=== PATIENT | female | born 1950 | race Caucasian/White ===

== ENCOUNTER 2023-12-29 19:07 | Inpatient (IN) | payer MEDICARE, SELFPAY ==
[2023-12-29 12:46] VITALS: BP 129/77
[2023-12-29 12:54] LABS: Glucose - Point of Care > 600 mg/dl (70-99)
--- NOTE | 2023-12-29 15:39 | ED.GENMED ---
History of Present Illness
General
Chief Complaint: Prescription Refill
Time Seen by Provider: 12/29/23 15:34
Travel History
Have you had any contact with someone who has COVID-19?: No
Do you have any symptoms of coronavirus? Fever > 100 degrees, chills, cough, shortness of breath, sore throat, loss of taste or smell, muscle aches, or headache?: No
History of Present Illness
History of Present Illness:
73-year-old female with history of type 2 diabetes and history of noncompliance presents to the emergency department due to high glucose. She has not been able to administer her insulin over the past several days as she is out of needles. She
denies any polyuria or polydipsia but does report fatigue and dizziness. Denies any chest pain or recent fevers.
Past History
Past History
ED Past Medical History: CAD, Cancer (Hodgkin's lymphoma 1988), CHF, HTN, Hypercholesterolemia and IDDM
ED Past Surgical History: Cardiac (Bypass surgery) and Orthopedic (Left great toe amputation)
Social History
Tobacco: Non-smoker
Alcohol: None
Drug: None
Living: with family
Employment: Not employed
Family History
Family History: Unable to obtain
Review of Systems
Review of Systems
Allergies reviewed?: Yes
All Other Systems: ROS reviewed and negative except as documented in HPI and ROS
Phy Exam
Physical Exam
Physical Exam:
GEN: Well appearing, NAD, WDWN
HEENT: Oral mucosa moist, no scleral icterus
Cardiac: Regular rate and rhythm, no murmurs
Lung: No respiratory distress, no tachypnea
MSK: No gross deformity or injuries
Skin: Good color, no pallor or jaundice, no rashes
Neuro: AO x3, moves all extremities freely
Psych: Calm, cooperative
Course
Orders/Labs/Results
Orders:
Orders
12/29/23 16:03
B-Hydroxybutyrate Urgent
Comment: ADD ON
Basic Metabolic Panel Urgent
CBC/With Diff [Complete Blood Count/With Diff] Urgent
12/29/23 16:59
Venous Blood Gas Urgent
%Oxygen/Room Air: 96
12/29/23 17:44
Insulin Aspart [NOVOLOG vial] 15 units SC NOW STA
Lactated Ringers [Lr] 2,000 ml IV BOLUS
12/29/23 18:28
Admit/Transfer Patient As Directed
Co-Sign Provider:
Level of Care: Inpatient admission
Assign to:: IMU- Intermediate Care
Physician / Group: hodan concepcion
Diagnosis: Hyperglycemia
Reason for Hospitalization: Hyperglycemia
Expected length of stay greater than two midnights?: Yes
ELOS- Estimated Length of Stay in days: 2
I certify the patient meets the requirements for IP care: Yes
12/29/23 18:46
Code Status As Directed
Resuscitation Status: Do not resuscitate
Reached after discussion with pt or family/Healthcare POA: Yes
DNR Bracelet Application ONCE
US Periph Venous LOWER Ext Ricky Urgent
Comment:
Reason For Exam: edema
12/29/23 19:06
Add On- LAB Urgent
Tests Added?: magnesium, BMP
Abnormal Lab Results
12/29/23 12/29/23 12/29/23
12:49 16:03 16:59
RDW 14.8 H %
(11.5-14.5)
Plt Count 92 L 10^3/uL
(130-400)
MPV 11.2 H fL
(7.4-10.4)
Absolute Lymphs (auto) 0.6 L 10^3/uL
(1.2-3.4)
Neutrophils % 82.1 H %
(42.2-75.2)
Lymphocytes % 8.9 L %
(20.5-51.1)
VBG pH 7.31 L
(7.32-7.43)
VBG pCO2 59 H mmHg
(35-48)
VBG HCO3 29.7 H mmol/L
(22-27)
Sodium 123 L mmol/L
(135-145)
Chloride 95 L mmol/L
(98-107)
BUN 22 H mg/dl
(7-17)
Creatinine 1.6 H mg/dL
(0.6-1.0)
Glucose 574 H* mg/dl
(70-99)
B-Hydroxybutyrate 0.44 H mmol/L
(0.02-0.27)
POC Glucose > 600 H* mg/dl
(70-99)
12/29/23 16:03
12/29/23 16:03
Vital Signs
Initial and Last Documented VS:
Initial Vital Signs
Temp Pulse Resp BP Pulse Ox
98 F 85 16 129/77 98
12/29/23 12:46 12/29/23 12:46 12/29/23 12:46 12/29/23 12:46 12/29/23 12:46
Last Documented Vital Signs
Temp Pulse Resp BP Pulse Ox
98.3 F 86 18 135/86 96
12/29/23 20:52 12/29/23 20:52 12/29/23 18:00 12/29/23 20:52 12/29/23 20:52
MDM/Problems Addressed
MDM/Problems Addressed:
Patient is known to be markedly hyperglycemic however labs not consistent with DKA, she is mildly acidotic however her bicarb is elevated and she has no anion gap. Patient was offered discharge to home after IV fluids and subcutaneous insulin
however she is concerned about going home as she does not know whether she can obtain her insulin needles rapidly, I feel this is reasonable given the patient's history of noncompliance she could certainly benefit from further glucose control and
peer educator follow-up, will admit to the hospitalist service
*Critical Care Note
Total Time (30-74mins, 75-104mins- exclusive of procedures): Not Applicable
ED Attending Note
-
Portions of this chart may have been created with voice recognition software.� Occasional wrong word or��sound alike� substitutions may have occurred due to the inherent limitations of voice recognition software.
Discharge Plan
Departure
Patient Disposition: Admit
Date of Disposition: 12/29/23
Time of Disposition: 17:55
Admit to: Med/Surg
Presentation/result/management discussed w/ accepting MD/DO: Hospitalist
Discharge Problem:
Hyperglycemia due to type 2 diabetes mellitus
Interventions
Interventions:
*Risk Screen - Suicide Last Done: 12/29/23 15:40
*General Assessment Last Done: 12/29/23 15:40
*Neglect/Abuse Screening Last Done: 12/29/23 15:40
*ED COVID-19 Vaccine History Last Done: 12/29/23 15:40
[2023-12-29 16:00] VITALS: BP 145/75
[2023-12-29 16:32] LABS: % Basophils 0.3 % (0-2); % Eosinophils 0.6 % (0-6); % Immature Granulocytes 0.4 % (0-0.5); % Lymphocytes 8.9 % (20.5-51.1); % Monocytes 7.7 % (1.7-9.3); % Neutrophils 82.1 % (42.2-75.2); Absolute Lymphocytes 0.6 10^3/uL (1.2-3.4); Absolute Monocytes 0.5 10^3/uL (0.1-0.6); Absolute Neutrophils 5.5 10^3/uL (1.4-6.5); Hemoglobin 12.6 g/dL (12.0-16.0); Mean Corp Hgb Conc. 34.1 g/dL (33.0-37.0); Mean Corpuscular Hgb 27.8 pg (27.0-31.0); Mean Corpuscular Volume 81.5 fL (81.0-99.0); Nucleated Red Blood Cells % 0 %; Red Blood Cell Count 4.54 10^6/uL (4.20-5.40); Red Cell Dist. Width 14.8 % (11.5-14.5); White Blood Cell Count 6.7 10^3/uL (4.8-10.8)
[2023-12-29 17:06] LABS: Blood Urea Nitrogen 22 mg/dl (7-17); Carbon Dioxide 25 mmol/L (22-30); Chloride 95 mmol/L (98-107); Glucose 574 mg/dl (70-99); Sodium 123 mmol/L (135-145); eGFR 34.27
[2023-12-29 17:07] LABS: Mean Platelet Volume 11.2 fL (7.4-10.4); Platelet Count 92 10^3/uL (130-400)
[2023-12-29 17:29] LABS: Venous Blood Gas B.E. 2.1 mmol/L (-4 to +4); Venous Blood Gas HCO3 29.7 mmol/L (22-27); Venous Blood Gas O2 Sat % 71.5 %; Venous Blood Gas pCO2 59 mmHg (35-48); Venous Blood Gas pH 7.31 (7.32-7.43); Venous Blood Gas pO2 42 mmHg (30-50)
[2023-12-29 18:00] VITALS: BP 118/73
[2023-12-29 18:06] LABS: B-Hydroxybutyrate 0.44 mmol/L (0.02-0.27)
[2023-12-29] MEDS: NOVOLOG vial 15 UNITS SC (18:06)
[2023-12-29] MEDS: LR 2000 IV (18:15)
--- NOTE | 2023-12-29 18:46 | HPS.HSE ---
Addendum entered and electronically signed by Liban Garcia MD 12/30/23 07:43:
73-year-old female with a past medical history of type 2 diabetes, paroxysmal atrial fibrillation on Eliquis, hypertension, anxiety, Charcot ankle, and chronic ambulatory dysfunction presented to the ER for medication refills, found to have
hyperglycemia with a blood sugar of 574. She no longer has a PCP, and ran out of her medications several weeks ago. She is not in DKA. She denies any overt symptoms. She does have right lower extremity wounds with associated erythema and
tenderness.
She has received IV fluids and 15 units of NovoLog in the ER.
Will continue her home insulin regimen, consult diabetes nurse practitioner.
Treat right lower extremity cellulitis with IV Ancef.
Although she is supposed to be on Eliquis, she has not taken her medications for several weeks since she ran out.
Check bilateral lower extremity Dopplers to rule out DVT, consult wound care.
Continue Eliquis, give IV Lasix for her bilateral lower extremity edema. She is supposed to be on oral Lasix at home.
I have personally seen and examined the patient on 12/29/23, and agree with the plan of care as documented by TAMAR Maldonado
Advance care planning discussed, patient is a full code.
All other issues as outlined by the advanced care practitioner.
Total time spent to see the patient on the floor, examine the patient, review data and lab results, discuss treatment plan with patient, nursing staff around 75 minutes.
Original Note:
Family Physician
-
Family Physician: * NONE
Chief Complaint
-
Medication refills
History of Present Illness
73-year-old female from home where she lives alone and states that she ran out of her insulin along with Accu-Chek strips greater than 1 week ago along with her other home medications. She reports she has not seen a primary care doctor since the
summer and was told by her old primary care doctor September he is no longer assigned to her. She reports chronic swelling of bilateral legs she is unsure when her right lower extremity became red with ulcerations and was surprised during my
examination. She denies any increased thirst, urination, headache, dizziness, abdominal pain, nausea, vomiting, diarrhea, dizziness, urinary symptoms. She has a colostomy bag from prior diverticulitis with colon resection. She is noncompliant
with her medications. Other past medical history includes hypertension, paroxysmal A-fib, anxiety, HLD, DM2, chronic peripheral edema, Charcot ankle, chronic ambulatory dysfunction uses wheelchair.
Medical History
Past Medical History
Past Medical History: Reports Other (hypertension, paroxysmal A-fib, anxiety, HLD, DM2, chronic peripheral edema, Charcot ankle, chronic ambulatory dysfunction uses wheelchair.)
Past Surgical History: Reports Cholecystectomy (August 2023)
Social History
Tobacco: Non-smoker
Alcohol: None
Drug: None
Personal: Single
Living: Alone
Employment: Retired
Family History
Family History: Other (Patient is unsure)
Allergies / Home Medications
Allergies reflects when Allergies were last updated in [facility].
Home Medications with original date entered in [facility]
Allergy/Medication List:
Allergies
Allergy/AdvReac Type Severity Reaction Status Date / Time
erythromycin base Allergy Unknown Verified 12/29/23 12:45
Iodinated Contrast Media Allergy Unknown Verified 12/29/23 12:45
[Iodinated Contrast Media -
IV Dye]
prednisone Allergy Unknown Verified 12/29/23 12:45
sulfamethoxazole Allergy Unknown Verified 12/29/23 12:45
[From Bactrim]
trimethoprim [From Bactrim] Allergy Unknown Verified 12/29/23 12:45
vancomycin Allergy Itching Verified 12/29/23 12:45
AND RED
SCALP
Home Medications
metoprolol succinate 50 mg tablet,extended release 24 hr 50 mg PO BID Heart disease/condition 12/03/20
atorvastatin 40 mg tablet (Lipitor) 40 mg PO HS High cholesterol 02/18/23
buspirone 5 mg tablet 5 mg PO BID Mental Health/Anxiety 02/18/23
mirtazapine 7.5 mg tablet 7.5 mg PO HS Mental Health/Anxiety 02/18/23
potassium chloride 20 mEq/15 mL oral liquid 20 meq PO BID Electrolyte Repletion 02/18/23
apixaban 5 mg tablet (Eliquis) 5 mg PO BID Paroxysmal atrial fibrillation 05/11/23
furosemide 80 mg tablet 80 mg PO DAILY #30 tabs 05/25/23
insulin aspart U-100 100 unit/mL (3 mL) subcutaneous pen (Novolog FlexPen U-100 Insulin aspart) 8 unit (0.08 mL) SC AC #15 mL 07/28/23
insulin glargine 100 unit/mL (3 mL) subcutaneous pen (Basaglar KwikPen U-100 Insulin) 30 unit SC QPM 09/24/23
furosemide 40 mg tablet (Lasix) 40 mg PO QPM 12/29/23
Review of Systems
-
History Source: Patient
A 12 point ROS was completed and negative except as noted: Yes
Constitutional: Reports Other (Poor insight into medical conditions); Denies Fever or Chills
EENT: Denies Sore Throat or Runny Nose
Respiratory: Denies Cough or Trouble Breathing
Cardiac: Denies Chest Pain, Diaphoresis, Palpitations or Syncope
Abdomen/GI: Denies Abdominal Pain, Nausea, Vomiting, Diarrhea, Constipated, Bloody Stools or Black Stools
: Denies Dysuria, Frequency, Flank Pain, Incontinence, Difficulty Voiding or Urgency
Musculoskeletal: Reports Edema (Chronic bilateral lower leg edema left greater than right); Denies Joint Pain
Skin: Reports Other (Cellulitis with ulcerations to right lower extremity); Denies Itching
Neurological: Denies Dizzy, Headache or Weakness
Endocrine: Reports No Symptoms
Hematologic/Lymphatic: Reports No Symptoms
Psych: Reports Calm
Physical Exam
Vital Signs
Vital Signs
Temp Pulse Resp BP Pulse Ox
98 F 85 16 129/77 98
12/29/23 12:46 12/29/23 12:46 12/29/23 12:46 12/29/23 12:46 12/29/23 12:46
Physical Exam
General: Comfortable, Conversant and Other (Poor insight into medical conditions); No Pain or Fever
HEENT: NormoCephalic, Anicteric, Moist mucous membranes, PERRLA, [place] Conjunctivae, No Ptosis and Other
Respiratory: Clear; No Wheezes, Rales or Rhonchi
Cardiac: S1/S2, Regular Rhythm and Peripheral Edema (Chronic bilateral left greater than right); No Murmur, Rub or Gallop
Breast: Deferred by me
GI: Soft, Non Tender, Normal Bowel Sounds, No Hepatosplenomegaly and Ostomy
Rectal: Deferred by Provider
Genito-urinary: Deferred by me
Musculoskeletal: No Clubbing, No Cyanosis, Edema, Left Lower Extremity (+3 nonpitting) and Edema, Right Lower Extremity (+2 nonpitting with Cellulitis with ulcerations to right lower extremity); No Edema, Left Upper Extremity or Edema, Right Upper
Extremity
Skin: Warm, Dry and Ulcers (Cellulitis with ulcerations to right lower extremity); No Jaundice
Neuro: AO x 3, Nonfocal/grossly intact, Cranial Nerves Intact and No Sensory Deficits; No Slurred Speech, Facial Droop or Tremors
Psych: Calm
Laboratory Results
-
12/29/23 16:03
Laboratory Results
Total Bilirubin Cancelled 12/29/23 16:03
AST Cancelled 12/29/23 16:03
ALT Cancelled 12/29/23 16:03
Alkaline Phosphatase Cancelled 12/29/23 16:03
Impression/Plan
-
Impression/plan:
Admit to IMU
#DM2 with acute hyperglycemia noncompliant medication
Blood sugar 574
-IV fluids
-Resume Lantus
-Accu-Cheks with SSI, check HgbA1c
#Pseudohyponatremia in setting of acute hyperglycemia
NA 123
IV NSS will follow BMP
#Medication noncompliance
#Self-care neglect
-PT/OT/case management consult
-Case management to help patient establish primary care provider
#Cellulitis right lower extremity with open wound
-Consult wound care
-IV Ancef
-Resume IV Lasix
-Venous Doppler bilateral lower legs
#Paroxysmal A-fib
-Resume Eliquis 5 mg twice daily, metoprolol succinate 50 mg twice daily
#HLD
Resume Lipitor
#Anxiety
-Resume mirtazapine and BuSpar
#Chronic ambulatory dysfunction secondary to Charcot ankle
Patient uses wheelchair to get around home
DVT prophylaxis
Resume Eliquis patient is pending Dopplers bilateral leg
DNR per patient with attending present at bedside
[2023-12-29 19:00] VITALS: BP 123/47
[2023-12-29 19:18] LABS: Glucose - Point of Care 345 mg/dl (70-99)
[2023-12-29 20:24] LABS: Glucose - Point of Care 363 mg/dl (70-99)
[2023-12-29 20:52] VITALS: BP 135/86
[2023-12-29 21:14] LABS: Blood Urea Nitrogen 22 mg/dl (7-17); Calcium 8.7 mg/dl (8.4-10.2); Carbon Dioxide 25 mmol/L (22-30); Chloride 99 mmol/L (98-107); Glucose 279 mg/dl (70-99); Magnesium 2.2 mg/dl (1.6-2.3); Potassium 4.3 mmol/L (3.5-5.1); Sodium 128 mmol/L (135-145); eGFR 31.86
[2023-12-29 23:09] VITALS: BP 130/55
[2023-12-29 23:12] VITALS: BMI 26.2
--- NOTE | 2023-12-29 23:19 | PTCARENOTE ---
Received pt from ED via stretcher. AAOx3. Lungs CTA on RA. Regular apical. VSS at this time. Afebrile. Accucheck on arrival was 249. Labs drawn and sent. wounds noted on RLE, sacrum, and left gluteal fold. Wound consult requested. Pt
resting comfortably in bed with call castanon in reach.
[2023-12-29 23:30] LABS: Glucose - Point of Care 249 mg/dl (70-99)
[2023-12-29] MEDS: REMERON 7.5 MG PO (23:52)
[2023-12-29] MEDS: ANCEF 5 IV (23:52)
[2023-12-29] MEDS: LANTUS 0.299999999999999989 UNITS SC (23:52)
[2023-12-29] MEDS: TOPROL XL 50 MG PO (23:56)
[2023-12-29] MEDS: LIPITOR 40 MG PO (23:56)
[2023-12-29] MEDS: ELIQUIS 5 MG PO (23:56)
[2023-12-29] MEDS: NSS 1000 IV (23:57)
[2023-12-29 23:59] LABS: Blood Urea Nitrogen 23 mg/dl (7-17); Calcium 8.6 mg/dl (8.4-10.2); Carbon Dioxide 30 mmol/L (22-30); Chloride 97 mmol/L (98-107); Estimated Creatinine Clearance 28 ml/min; Glucose 214 mg/dl (70-99); Potassium 4.7 mmol/L (3.5-5.1); Sodium 128 mmol/L (135-145); eGFR 29.75
[2023-12-30] VITALS (13 sets, daily range): BP systolic 105–137; BP diastolic 38–83; BMI 26.2; BMI 26.3
[2023-12-30 05:06] LABS: Hematocrit 31.1 % (37.0-47.0); Hemoglobin 10.3 g/dL (12.0-16.0); Mean Corp Hgb Conc. 33.1 g/dL (33.0-37.0); Mean Corpuscular Hgb 27.6 pg (27.0-31.0); Mean Corpuscular Volume 83.4 fL (81.0-99.0); Mean Platelet Volume 10.3 fL (7.4-10.4); Platelet Count 126 10^3/uL (130-400); Red Blood Cell Count 3.73 10^6/uL (4.20-5.40); Red Cell Dist. Width 14.9 % (11.5-14.5); White Blood Cell Count 5.7 10^3/uL (4.8-10.8)
[2023-12-30 05:34] LABS: ALT (SGPT) < 10 U/L (0-35); AST (SGOT) 18 U/L (14-36); Albumin 2.1 g/dl (3.5-5.0); Alkaline Phosphatase 118 U/L (38-126); Blood Urea Nitrogen 25 mg/dl (7-17); Calcium 8.5 mg/dl (8.4-10.2); Carbon Dioxide 27 mmol/L (22-30); Chloride 99 mmol/L (98-107); Estimated Creatinine Clearance 33 ml/min; Glucose 219 mg/dl (70-99); Magnesium 2.1 mg/dl (1.6-2.3); Sodium 129 mmol/L (135-145); Total Bilirubin 0.7 mg/dl (0.2-1.3); Total Protein 4.7 g/dl (6.3-8.2); eGFR 37.03
--- NOTE | 2023-12-30 08:01 | W.PN.HOSP.TC ---
Today's Communication/Plan
-
Stable for telemetry
Assessment / Plan
Assessment / Plan
HPI: 73-year-old female with a past medical history of type 2 diabetes, paroxysmal atrial fibrillation on Eliquis, hypertension, anxiety, Charcot ankle, and chronic ambulatory dysfunction presented to the ER for medication refills, found to have
hyperglycemia with a blood sugar of 574.� She no longer has a PCP, and ran out of her medications several weeks ago.� She is not in DKA.� She denies any overt symptoms.� She does have right lower extremity wounds with associated erythema and
tenderness.
#Uncontrolled type 2 diabetes with hyperglycemia secondary to medication noncompliance
Patient presented to the ER for medication refills, she states she ran out of her insulin, and has not taken it for several days
Her blood sugars have improved since resuming insulin
Appreciate diabetes nurse practitioner input
Lantus increased to 35 units at night, continue NovoLog 8 units AC 3 times daily, sliding scale insulin
#Right lower extremity cellulitis
#Right lower extremity wounds
Wound care, continue Ancef day 2
#Medication noncompliance
Patient reports not having a PCP anymore, case management consulted
#Paroxysmal atrial fibrillation
Continue Eliquis and metoprolol succinate
#Pseudohyponatremia
Due to hyperglycemia, improving
#Stage III chronic kidney disease
Creatinine 1.5 today, about her baseline
#Bilateral lower extremity edema
Dopplers negative for DVT
# Hyperlipidemia
Continue Lipitor
#Anxiety
Continue mirtazapine and BuSpar
#Chronic ambulatory dysfunction secondary to Charcot ankle
Patient uses wheelchair to get around home
DVT prophylaxis -Eliquis
DNR
Physical Exam
General: Obese, no acute distress
HEENT: Normocephalic, Atraumatic, EOMI, MMM
Respiratory: Clear to Auscultation bilaterally
Cardiac: Normal S1/S2, Regular Rate and Rhythm
GI: Soft, Nontender, Nondistended, Normal Bowel Sounds
Extremities: No Clubbing, Cyanosis
Bilateral lower extremity edema, right greater than left
Scattered wounds on right andres with surrounding erythema and edema, erythema improved from admission
Anticipated Discharge: 24 - 48 hours
Subjective/Interval History
-
Date of Service: December 30, 2023
Patient reports feeling better.
Objective Data
-
Labs:
Laboratory Results
12/29/23 12/29/23 12/29/23
20:22 20:44 23:29
WBC
Hgb
Hct
Plt Count
Sodium Cancelled 128 L 128 L
Potassium Cancelled 4.3 4.7
Chloride Cancelled 99 97 L
Carbon Dioxide Cancelled 25 30
BUN Cancelled 22 H 23 H
Creatinine Cancelled 1.7 H 1.8 H
Glucose Cancelled 279 H 214 H
Calcium Cancelled 8.7 8.6
Total Bilirubin
AST
ALT
Alkaline Phosphatase
12/30/23
04:57
WBC 5.7
Hgb 10.3 L
Hct 31.1 L
Plt Count 126 L D
Sodium 129 L
Potassium 4.0
Chloride 99
Carbon Dioxide 27
BUN 25 H
Creatinine 1.5 H
Glucose 219 H
Calcium 8.5
Total Bilirubin 0.7
AST 18
ALT < 10
Alkaline Phosphatase 118
Vital Signs:
Vital Signs
Temp Pulse Resp BP Pulse Ox
98.3 F 63 16 120/51 93
12/30/23 04:19 12/30/23 06:00 12/30/23 06:00 12/30/23 06:00 12/30/23 06:00
I&O
12/29/23 12/30/23 12/31/23
06:59 06:59 06:59
Intake Total 400 / 400
Balance 400 / 400
[2023-12-30] MEDS: ANCEF 5 IV ×3 (08:48→23:48)
[2023-12-30] MEDS: TOPROL XL 50 MG PO ×2 (08:50→21:01)
[2023-12-30] MEDS: ELIQUIS 5 MG PO ×2 (08:50→21:01)
[2023-12-30] MEDS: LASIX 80 MG IV (08:51)
[2023-12-30 08:57] LABS: Glucose - Point of Care 214 mg/dl (70-99)
[2023-12-30] MEDS: NOVOLOG FLEXPEN 8 UNITS SC ×3 (09:25→18:09)
[2023-12-30] MEDS: NOVOLOG FLEXPEN-HIGH RESISTANCE 4 UNITS SC ×2 (09:25→18:09)
[2023-12-30 09:33] LABS: Glycohemoglobin (HgbA1c) 15.4 % (4.0-5.6)
--- NOTE | 2023-12-30 10:36 | WOUNDNOTE ---
R HEEL AND POSTERIOR LEG
--- NOTE | 2023-12-30 10:39 | WOUNDNOTE ---
SHAMAR RN note: Patient admitted with Hyperglycemia. Patient lives alone at home.
See H&P for complete history.
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
Wound Location and type/assessment: Patient known to service,last seen on 07/20/23 for healing L ischial stage 4 pressure injury. Since last seen, wound flatter, chicken and fish cleaner and less deep. No odor, induration or signs of infection, macerated edges.
Sacrum with small stage 3 PI, silicone foam in use. R lower leg with venous ulcers, pink at base. Ultrasound of legs was negative for DVT. Heels are intact, palpable pedal pulses, leg edema, L>R. Patient states she manages own wounds, uses dry gauze
dressings. Unable to use compression stockings at home, states she can't apply on own. Purwick in use, Labia with slight pink weeping area, not new. At home patient sleeps in recliner chair and sits in wheelchair during the day. Patient has been
advised to prevent prolonged sitting due to wounds and patient non compliant with advice. Colostomy stoma pink, no leakage. Using Convatec one piece drainable pouch with clip, is independent with care. Did not bring in supplies, called spd for
Coloplast one piece, supplies at bedside. Nurse Lor who assisted with care made aware to save clip when next appliance changed.
Appetite: on TLC diet.
Pressure redistribution devices in place: On Centrella max air,recommend keep on air mattress. She can turn self in bed. Pillows placed under calves and protective foams applied to heels.
Plan: Dressing changed to L ischium, with skin prep to periwound, 1' Iodoform packing,(2.5cm depth at 7 o clock) gauze and silicone foam. R leg with Xeroform, gauze and silicone foam. Will order mineral oil for dry skin on legs and feet. Called [facility]
for Tubigrip size F knee high both legs, to be applied by nurse after mineral oil applied. Sacral silicone foam in use on sacrum, re used foam, scant drainage. Colostomy can be changed as needed, supplies at bedside.
Will confirm orders with hospitalist and updated nurse Lor. Care plan to be update and will follow as needed.
Note to case management requested for discharge: VN if goes home with assist with wound care.
Recommend follow up at wound care center upon discharge.
--- NOTE | 2023-12-30 11:06 | PN.DE.MGMTRT ---
Insulin Management
- -
12/30/2023 Patient admitted 12/29 due to hyperglycemia because she had no needles to take her insulin. PMH CAD, Hodgkins lymphoma, CHF, HTN, HCL, diabetes. Glucose on admission >600.
A1C on admission 15.4%, cr 1.5, egfr 37.03.
Her home regimen of 30 units lantus @ hs was given last hs, fasting glucose this AM 219. Will increase hs lantus to 35 units. 8 units novolog AC has been started this AM with corrective insulin. Will follow for need to adjust.
Diabetes History
- -
Type of Diabetes: 2 requiring insulin
Pre-Admission Diabetes Regimen
12/29/23 12/29/23 12/29/23
16:03 19:18 20:22
Creatinine 1.6 H Cancelled Cancelled
12/29/23 12/29/23 12/30/23
20:44 23:29 04:57
Creatinine 1.7 H 1.8 H 1.5 H
Lab Results
Hemoglobin A1c 15.4 % (4.0-5.6) H 12/30/23 04:57
Insulin Pump Settings
IP Diabetes Regimen
12/29/23 12/29/23 12/29/23
12:49 16:03 19:14
Glucose 574 H*
POC Glucose > 600 H* 345 H
12/29/23 12/29/23 12/29/23
19:18 20:20 20:22
Glucose Cancelled Cancelled
POC Glucose 363 H
12/29/23 12/29/23 12/29/23
20:44 23:17 23:29
Glucose 279 H 214 H
POC Glucose 249 H
12/30/23 12/30/23
04:57 08:46
Glucose 219 H
POC Glucose 214 H
Meal type: Breakfast
Amount consumed: 100%
Patient Education
[2023-12-30 11:59] LABS: Glucose - Point of Care 104 mg/dl (70-99)
[2023-12-30] MEDS: NOVOLOG FLEXPEN-HIGH RESISTANCE SC (12:16)
[2023-12-30] MEDS: HYDROPHOR 1 APPLIC TOPICAL (14:10)
--- NOTE | 2023-12-30 16:59 | CM ---
Patient with Hx including chronic ambulatory dysfunction, colostomy with Dx Uncontrolled type 2 DM with hyperglycemia secondary to medication noncompliance, RLE cellulitis. Room air. Receiving IV cefazolin. Seen by wound care nurse: daily wound
care R leg, L ischium. Sacral wound care Q3days. PT Eval; refused.
Met with patient who resides alone in the basement level of her split level home, with no stairs needed for access.
Patient says her house is under construction and has mónica missing on the main levels.
She has a microwave and toilet on the basement unit.
The patient has been functioning indepenently for ADLs.
She is non-ambulatory and w/c bound. She is able to transfer herself to a w/c and propel it to the bathroom.
Patient states she has not ambulated in 4 years.
She states she does her own colostomy care and needs more supplies.
She orders food from [facility] for delivery.
DME - hospital bed that patient is not using, RW, w/c
[facility]
SNF - per prior CM notes 07/21/23: [facility], and [facility]
Patient states she will not go to SNF for rehab if needed. She states she cannot have VN at home because she has an open Workers Comp case from March 2023 and will not allow VN.
Patient states: 'I'm depressed. My son can't be bothered to call the barman for me to get my workers comp case closed so I can have a visiting nurse through Medicare. F---(curse word) it. My son still hasn't finished my kitchen, I gave him money
to do that and the mónica is torn up'.
Patient provided permission for to contact her son Jesus.
Message sent to Dr Garcia and nurse Horowitz: patient seems very depressed and disinterested in helping herself or participating in setting up services for herself at home. Will reach out to son who patient states is not helping her enough. [facility] is checking
if she is eligible for their services thru Medicare, as she thinks she has an open workers comp file that is preventing them from seeing her.
Offered to make referral to [facility] so they could determine if she has benefits available and she agreed.
Referral to [facility].
Message from Joelle Cannon, Garment [employer] requesting CM provide patient info on [employer]als [employer] Whe[employer].
Provided written info for patient: The phone # for [facility] [employer] [facility] of [facility] is [phone].
Patient may benefit from a referral to [facility]. Consider after speaking with son.
Plan follow up with [facility] re; acceptance.
Plan contact patient's son Jesus re; home situation.
[2023-12-30 17:25] LABS: Glucose - Point of Care 232 mg/dl (70-99)
[2023-12-30] MEDS: REMERON 7.5 MG PO (21:01)
[2023-12-30] MEDS: LIPITOR 40 MG PO (21:01)
[2023-12-30] MEDS: LANTUS 0.349999999999999978 UNITS SC (21:42)
[2023-12-30 21:53] LABS: Glucose - Point of Care 267 mg/dl (70-99)
[2023-12-30] MEDS: TYLENOL 650 MG PO (23:48)
[2023-12-31] VITALS (9 sets, daily range): BP systolic 106–148; BP diastolic 41–92; PULSE 61; O2SAT 94; BMI 26.0
--- NOTE | 2023-12-31 00:47 | PTCARENOTE ---
Received pt at start of shift. aaox3, pleasant. v paced on monitor. RA but began to desat to 88% when asleep, 2L placed HS. Colostomy bag intact. Pt refused to elevate her legs on pillows. RLE wound covered, CDI. Edematous legs. C/o of UGARTE, Tylenol
given. Lantus given. Q2T.
Had a brief conversation with pt about her care at home and if she has help nearby. Stated her son lives nearby and if she needed his help he would be available. Asked pt if she needs help at home and she stated 'i would have never admitted it
before, but yes i do need help.'
Call castanon in reach, will continue to monitor.
[2023-12-31 04:36] LABS: Hemoglobin 11.5 g/dL (12.0-16.0); Mean Corp Hgb Conc. 32.9 g/dL (33.0-37.0); Mean Corpuscular Hgb 27.7 pg (27.0-31.0); Mean Corpuscular Volume 84.3 fL (81.0-99.0); Mean Platelet Volume 9.9 fL (7.4-10.4); Platelet Count 138 10^3/uL (130-400); Red Blood Cell Count 4.15 10^6/uL (4.20-5.40); White Blood Cell Count 4.7 10^3/uL (4.8-10.8)
[2023-12-31 04:47] LABS: Blood Urea Nitrogen 39 mg/dl (7-17); Calcium 8.7 mg/dl (8.4-10.2); Carbon Dioxide 27 mmol/L (22-30); Chloride 98 mmol/L (98-107); Estimated Creatinine Clearance 28 ml/min; Glucose 397 mg/dl (70-99); Magnesium 2.2 mg/dl (1.6-2.3); Phosphorus 3.6 mg/dl (2.5-4.5); Potassium 4.4 mmol/L (3.5-5.1); Sodium 131 mmol/L (135-145); eGFR 29.75
[2023-12-31 08:18] LABS: Glucose - Point of Care 303 mg/dl (70-99)
--- NOTE | 2023-12-31 09:16 | PN.DE.MGMTRT ---
Insulin Management
- -
12/30/2023 Patient admitted 12/29 due to hyperglycemia because she had no needles to take her insulin. PMH CAD, Hodgkins lymphoma, CHF, HTN, HCL, diabetes. Glucose on admission >600.
A1C on admission 15.4%, cr 1.5, egfr 37.03.
Her home regimen of 30 units lantus @ hs was given last hs, fasting glucose this AM 219. Will increase hs lantus to 35 units. 8 units novolog AC has been started this AM with corrective insulin. Will follow for need to adjust.
12/31/2023 Diabetes Management Follow up
Insulin doses increased yesterday glucose remains > 200. Received 35 units of lantus @ hs, fasting glucose this AM 397. Will increase HS Lantus to 40 units. Pre meal glucose remained > 200 requiring 4 units corrective insulin. Will increase AC
novolog to 12 units with corrective insulin. Will change corrective insulin from high to moderate. Will follow.
Diabetes History
- -
Type of Diabetes: 2 requiring insulin
Pre-Admission Diabetes Regimen
12/31/23
04:05
Creatinine 1.8 H
Lab Results
Hemoglobin A1c 15.4 % (4.0-5.6) H 12/30/23 04:57
Insulin Pump Settings
IP Diabetes Regimen
12/30/23 12/30/23 12/30/23
11:47 17:09 21:41
Glucose
POC Glucose 104 H 232 H 267 H
12/31/23 12/31/23
04:05 08:07
Glucose 397 H
POC Glucose 303 H
Meal type: Breakfast
Amount consumed: 100%
Patient Education
[2023-12-31] MEDS: ELIQUIS 5 MG PO ×2 (09:25→20:18)
[2023-12-31] MEDS: HYDROPHOR 1 APPLIC TOPICAL (09:26)
[2023-12-31] MEDS: TOPROL XL 50 MG PO ×2 (09:27→20:18)
[2023-12-31] MEDS: NOVOLOG FLEXPEN 8 UNITS SC (09:39)
[2023-12-31] MEDS: NOVOLOG FLEXPEN-HIGH RESISTANCE 10 UNITS SC (09:40)
[2023-12-31] MEDS: ANCEF 5 IV ×2 (09:50→16:05)
--- NOTE | 2023-12-31 09:59 | CM ---
Addendum entered by Nova Salazar 12/31/23 16:42:
i did call [facility].their physicians only see patients in the home if patient is absolutely bedbound.i was told patient does not qualify for a home visit from a doctor since she does have other means to travel to a doctor's office.i
also called house call group and left a [facility] to return my call.not able to reach [facility] or [facility] since phone numbers were not current.
Original Note:
met with patient at bedside.she states she does not have a pcp and said she has been followed in past by [facility].she mentions her son smith works and is not able to drive her to the doctor's office to see a primary care doctor.she had been seeing a spread cutter
at [facility] but the spread cutter wanted to see her before he ordered additonal home care visits.patient states she has been trying to straighten out her medicare coverage for months now(since aug 2023) but thinks that situation has been
resolveed.i have spoken with patient about seeing a resident doctor through the clinic at [facility].she told cm she doesnt think she can make any appts because she has no one to drive her there. i left patient a brochure about the above
clinic.
i spoke with son smith who mentions he has told his mother that if she makes an appt he will drive her to the appt.he visits her almost daily but states she has her own agenda and does not seem to wants to see a pcp.he mentions she does have
medicare but had a settlement with a prison and the carriage feeder forgot to send back payment to medicare which caused a problem with medicare initially. now it appears to be resolved.son smith states his mom is very much in need of a visiting
nurse through [facility] and will discuss with his mom going through the clinic and seeing a resident physician.he also told me his mom would like a doctor who makes home visits.i explained that i did not think there are any programs where doctors make
house visits but i will inquire. son mentions his mother has been very difficult to deal with and has been non compliant for as long as he can remember.
--- NOTE | 2023-12-31 10:32 | PTCARENOTE ---
Assumed care of pt from night RN, pt awake and alert, confusion noted and pt seems a bit manic, sentences hard to follow at times, pt does have hx of Bipolar Disorder. Son at bedside, per son, pt is a bit more confused than normal. Repositioned in
bed frequently and incontinence care completed as needed. Remains on 1440 FR, compliant. Will continue to monitor through shift.
--- NOTE | 2023-12-31 11:51 | PN.CDI ---
CDI
- -
CDI:
Physician Documentation Request
Admit Date: 12/29/23 19:07
Dear Doctor Do,
Please review the following and provide your response in the progress notes.
Clinical Indicators:
Pt admitted with DM with hyperglycemia/Cellulitis
Documented per ED Hx of CHF
Per MAR on Lasix 40 MG QPM daily/ 80 mg PO daily
Documented per past visit 07/20/23 visit cardiology consult, 'Ischemic cardiomyopathy/history of heart failure with reduced ejection fraction EF 30-35% ( echo 11/27/20)...'
Please provide further specificity regarding the most likely type of CHF you are evaluating, treating or monitoring.
Type
Chronic Systolic
Chronic Diastolic
Chronic Combined Systolic/Diastolic
Other
Use of terms such as suspected, likely, concern for, or probable (associated with a specific diagnosis that is being evaluated, monitored, or treated as if it exists) are acceptable and can be coded in the inpatient setting, when documented at the
time of discharge.
Thank you,
Cynthia Soto RN
CDI Specialist
[place] Text
Please use your independent medical judgment in providing your response.
--- NOTE | 2023-12-31 12:03 | PN.CDI ---
CDI
- -
CDI:
Physician Documentation Request
Admit Date: 12/29/23 19:07
Dear Doctor Do,
Please review the following and provide your response in the progress notes.
Clinical Indicators:
Pt admitted with DM with hyperglycemia/ RLE Cellulitis /noncompliance with medications
A1C 15.4 %
Please clarify the relationship between these conditions:
Yes, _RLE cellulitis __ is related to/associated with/due to Diabetes ___.
No, _RLE cellulitis __ is not related to/associated with/due to _Diabetes __ but it is due to ___. (Please specify)
Unable to determine
Use of terms such as suspected, likely, concern for, or probable (associated with a specific diagnosis that is being evaluated, monitored, or treated as if it exists) are acceptable and can be coded in the inpatient setting, when documented at the
time of discharge.
Thank you,
Cynthia Soto RN
CDI Specialist
[place] Text
Please use your independent medical judgment in providing your response.
--- NOTE | 2023-12-31 12:06 | PTCARENOTE ---
Assumed care of pt from night RN, pt awake and alert, makes needs known. Pt seen by Diabetic BUILDING CUSTODIAN, glucometer given to pt for use at home and education provided, despite pt saying 'I have like 10 of these at home.' Scheduled Novolog and Lantus
increased per BUILDING CUSTODIAN. Continues on IV ABT for RLE cellulitis. Colostomy in place collecting brown stool, pt self-cares for colostomy. Pt awaiting private room on med/surg floor r/t + MRSA in nares, Contact precautions maintained. Will continue to
monitor through shift.
--- NOTE | 2023-12-31 12:46 | W.PN.HOSP.TC ---
Today's Communication/Plan
-
See bold
Assessment / Plan
Assessment / Plan
HPI: 73-year-old female with a past medical history of type 2 diabetes, paroxysmal atrial fibrillation on Eliquis, hypertension, anxiety, Charcot ankle, and chronic ambulatory dysfunction presented to the ER for medication refills, found to have
hyperglycemia with a blood sugar of 574.� She no longer has a PCP, and ran out of her medications several weeks ago.� She is not in DKA.� She denies any overt symptoms.� She does have right lower extremity wounds with associated erythema and
tenderness.
#Uncontrolled type 2 diabetes with hyperglycemia secondary to medication noncompliance, hemoglobin A1c 15.4
Patient presented to the ER for medication refills, she states she ran out of her insulin, and has not taken it for several days
Her blood sugars have improved since resuming insulin
Appreciate diabetes nurse practitioner input
Lantus increased to 40 units at night, novolog increased to 12 units AC 3 times daily, sliding scale insulin
#Right lower extremity cellulitis
#Right lower extremity wounds
No, RLE cellulitis is not related to/associated with/due to Diabetes but it is due to RLE wounds
Wound care, continue Ancef day 4
#Medication noncompliance
Patient reports not having a PCP anymore, case management consulted
#Paroxysmal atrial fibrillation
Continue Eliquis and metoprolol succinate
#Pseudohyponatremia
Due to hyperglycemia, improving
#Stage III chronic kidney disease
Creatinine 1.5 today, about her baseline
#Chronic systolic heart failure
#Bilateral lower extremity edema
Dopplers negative for DVT
Status post IV Lasix
Likely can resume oral Lasix tomorrow
# Hyperlipidemia
Continue Lipitor
#Anxiety
Continue mirtazapine and BuSpar
#Chronic ambulatory dysfunction secondary to Charcot ankle
Patient uses wheelchair to get around home
DVT prophylaxis -Eliquis
DNR
Physical Exam
General: Obese, no acute distress
HEENT: Normocephalic, Atraumatic, EOMI, MMM
Respiratory: Clear to Auscultation bilaterally
Cardiac: Normal S1/S2, Regular Rate and Rhythm
GI: Soft, Nontender, Nondistended, Normal Bowel Sounds
Extremities: No Clubbing, Cyanosis
Bilateral lower extremity edema, right greater than left
Scattered wounds on right andres with surrounding erythema and edema, erythema improved from admission
Left first toe amputation
Anticipated Discharge: 24 - 48 hours
Subjective/Interval History
-
Date of Service: December 31, 2023
Patient reports feeling better.
Objective Data
-
Labs:
Laboratory Results
12/31/23
04:05
WBC 4.7 L
Hgb 11.5 L
Hct 35.0 L
Plt Count 138
Sodium 131 L
Potassium 4.4
Chloride 98
Carbon Dioxide 27
BUN 39 H
Creatinine 1.8 H
Glucose 397 H
Calcium 8.7
Vital Signs:
Vital Signs
Temp Pulse Resp BP Pulse Ox
97.8 F 64 13 137/59 97
12/31/23 11:00 12/31/23 09:27 12/31/23 06:00 12/31/23 09:27 12/31/23 07:45
I&O
12/30/23 12/31/23 01/01/24
06:59 06:59 06:59
Intake Total 400 / 400 570 / 570
Output Total 925 / 925
Balance 400 / 400 -355 / -355 -
[2023-12-31 14:05] LABS: Glucose - Point of Care 147 mg/dl (70-99)
[2023-12-31] MEDS: NOVOLOG FLEXPEN 12 UNITS SC ×2 (14:17→18:24)
[2023-12-31] MEDS: NOVOLOG FLEXPEN-MODERATE RESISTANCE SC ×2 (14:18→17:53)
--- NOTE | 2023-12-31 15:50 | VNURNOTE ---
Home Health Liaison met with patient at 1400 to discuss [facility] nurse/therapy, visits, schedule and homebound status.
Patient does not have a current PCP and will not return to [facility].
Patient stated that she had [facility] previously and due to insurance issues it was cancelled.
Prior home care notes indicate that services were not continued because patient would not make appointment with PCP.
Patient went to [facility] 07/28 - 09/12 and following that stay the PCP required a visit in order to continue to sign home care orders, 09/17/23 the pt was made a non admit to [facility] services.
Patient stated that she is unable to get out of house to any appointments and would be agreeable to have in home physician see her if needed.
Patient is agreeable to have [facility] set up once above physician is established.
Calls made to practices that make house calls [facility] [phone] and [facility] [phone] requesting information for new patient. Message left on both above numbers, will follow up 2/2.
[facility] brochure provided with contact information. Liaison will update CM and continue to assist with coordination of care.
[2023-12-31] MEDS: ROXICODONE 5 MG PO (16:05)
[2023-12-31 18:00] LABS: Glucose - Point of Care 130 mg/dl (70-99)
[2023-12-31] MEDS: REMERON 7.5 MG PO (20:18)
[2023-12-31] MEDS: LIPITOR 40 MG PO (20:18)
[2023-12-31 21:51] LABS: Glucose - Point of Care 133 mg/dl (70-99)
[2023-12-31] MEDS: LANTUS 0.400000000000000022 UNITS SC (21:52)
[2024-01-01] VITALS: BP 124/48
[2024-01-01] MEDS: ANCEF 5 IV ×3 (00:15→17:53)
[2024-01-01 04:00] VITALS: BP 108/66
--- NOTE | 2024-01-01 04:40 | PTCARENOTE ---
Received pt at start of shift. av & vpaced on monitor. RA when awake, 2lHS when asleep d/t desating. Denies pain. Wound dressings CDI. Lantus given, blood sugar 130HS. LLE edematous, pt refuses to elevate them. Q2T in bed. Wedge & air cushion foam
used for pt. NO other issues at this time, call castanon in reach.
[2024-01-01 05:17] LABS: Hematocrit 33.2 % (37.0-47.0); Hemoglobin 10.6 g/dL (12.0-16.0); Mean Corp Hgb Conc. 31.9 g/dL (33.0-37.0); Mean Corpuscular Volume 87.8 fL (81.0-99.0); Mean Platelet Volume 10.6 fL (7.4-10.4); Platelet Count 139 10^3/uL (130-400); Red Blood Cell Count 3.78 10^6/uL (4.20-5.40); Red Cell Dist. Width 15.1 % (11.5-14.5); White Blood Cell Count 4.9 10^3/uL (4.8-10.8)
[2024-01-01 05:46] LABS: Blood Urea Nitrogen 45 mg/dl (7-17); Calcium 8.7 mg/dl (8.4-10.2); Carbon Dioxide 27 mmol/L (22-30); Chloride 103 mmol/L (98-107); Estimated Creatinine Clearance 28 ml/min; Glucose 257 mg/dl (70-99); Potassium 4.2 mmol/L (3.5-5.1); Sodium 135 mmol/L (135-145); eGFR 29.75
[2024-01-01 06:00] VITALS: BMI 26.5
--- NOTE | 2024-01-01 07:34 | PN.DE.MGMTRT ---
Insulin Management
- -
12/30/2023 Patient admitted 12/29 due to hyperglycemia because she had no needles to take her insulin. PMH CAD, Hodgkins lymphoma, CHF, HTN, HCL, diabetes. Glucose on admission >600.
A1C on admission 15.4%, cr 1.5, egfr 37.03.
Her home regimen of 30 units Lantus @ hs was given last hs, fasting glucose this AM 219. Will increase hs Lantus to 35 units. 8 units NovoLog AC has been started this AM with corrective insulin. Will follow for need to adjust.
12/31/2023 Diabetes Management Follow up
Insulin doses increased yesterday glucose remains > 200. Received 35 units of Lantus @ hs, fasting glucose this AM 397. Will increase HS Lantus to 40 units. Pre meal glucose remained > 200 requiring 4 units corrective insulin. Will increase AC
NovoLog to 12 units with corrective insulin. Will change corrective insulin from high to moderate. Will follow.
01/01/2024: Diabetes Management F/U:
Insulin doses increased yesterday and premeal glucose improved to 130-147, however, FBG remains > 200, was 257 this AM.
Will further increase Lantus to 44 units. Cont AC NovoLog 12 units with moderate corrective insulin.
Will follow for need to further adjust insulin.
Diabetes History
- -
Type of Diabetes: 2 requiring insulin
Pre-Admission Diabetes Regimen
01/01/24
05:05
Creatinine 1.8 H
Lab Results
Hemoglobin A1c 15.4 % (4.0-5.6) H 12/30/23 04:57
Insulin Pump Settings
IP Diabetes Regimen
12/31/23 12/31/23 12/31/23
08:07 13:54 17:49
Glucose
POC Glucose 303 H 147 H 130 H
12/31/23 01/01/24
21:40 05:05
Glucose 257 H
POC Glucose 133 H
Meal type: Dinner
Amount consumed: 100%
Patient Education
[2024-01-01 08:00] VITALS: BP 144/60
--- NOTE | 2024-01-01 08:18 | W.PN.HOSP.TC ---
Today's Communication/Plan
-
see bold
Assessment / Plan
Assessment / Plan
HPI: 73-year-old female with a past medical history of type 2 diabetes, paroxysmal atrial fibrillation on Eliquis, hypertension, anxiety, Charcot ankle, and chronic ambulatory dysfunction presented to the ER for medication refills, found to have
hyperglycemia with a blood sugar of 574.� She no longer has a PCP, and ran out of her medications several weeks ago.� She is not in DKA.� She denies any overt symptoms.� She does have right lower extremity wounds with associated erythema and
tenderness.
#Uncontrolled type 2 diabetes with hyperglycemia secondary to medication noncompliance, hemoglobin A1c 15.4
Patient presented to the ER for medication refills, she states she ran out of her insulin, and has not taken it for several days
Her blood sugars have improved since resuming insulin
Appreciate diabetes nurse practitioner input
Lantus increased to 44 units at night, novolog increased to 12 units AC 3 times daily, sliding scale insulin
#Right lower extremity cellulitis
#Right lower extremity wounds
No, RLE cellulitis is not related to/associated with/due to Diabetes but it is due to RLE wounds
Wound care, continue Ancef day 5 - likely can change to keflex tomorrow
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
#Sacrum with small stage 3 pressure injury
Wound care
#Medication noncompliance
Patient reports not having a PCP anymore, case management consulted
Patient states there is no one to take her to see a primary care doctor, discussed with her son on 2/1�he is willing to take her
#Paroxysmal atrial fibrillation
Continue Eliquis and metoprolol succinate
#Pseudohyponatremia
Due to hyperglycemia, improving
#Stage III chronic kidney disease
Creatinine 1.8 today, about her baseline
#Chronic systolic heart failure
#Bilateral lower extremity edema
Dopplers negative for DVT
Status post IV Lasix
Resume oral Lasix tomorrow
# Hyperlipidemia
Continue Lipitor
#Anxiety
Continue mirtazapine and BuSpar
#Chronic ambulatory dysfunction secondary to Charcot ankle
Patient uses wheelchair to get around home
DVT prophylaxis -Eliquis
DNR
Physical Exam
General: Obese, no acute distress
HEENT: Normocephalic, Atraumatic, EOMI, MMM
Respiratory: Clear to Auscultation bilaterally
Cardiac: Normal S1/S2, Regular Rate and Rhythm
GI: Soft, Nontender, Nondistended, Normal Bowel Sounds
Extremities: No Clubbing, Cyanosis
Bilateral lower extremity edema, right greater than left
Scattered wounds on right andres with surrounding erythema and edema, erythema improved from admission
Left first toe amputation
Derm: Healing L ischial stage 4 pressure injury
Sacrum with small stage 3 pressure injury
Anticipated Discharge: Within 24 hours
Subjective/Interval History
-
Date of Service: January 01, 2024
Patient reports feeling tired.
Objective Data
-
Labs:
Laboratory Results
01/01/24
05:05
WBC 4.9
Hgb 10.6 L
Hct 33.2 L
Plt Count 139
Sodium 135
Potassium 4.2
Chloride 103
Carbon Dioxide 27
BUN 45 H
Creatinine 1.8 H
Glucose 257 H
Calcium 8.7
Vital Signs:
Vital Signs
Temp Pulse Resp BP Pulse Ox
97.8 F 60 14 108/66 100
01/01/24 03:10 01/01/24 06:00 01/01/24 06:00 01/01/24 04:00 01/01/24 06:00
I&O
12/31/23 01/01/24 01/02/24
06:59 06:59 06:59
Intake Total 570 / 570 780 / 780
Output Total 925 / 925 600 / 600
Balance -355 / -355 180 / 180
--- NOTE | 2024-01-01 08:44 | PTCARENOTE ---
Patient received from shift leader. Patient resting comfortably in bed. AAO, VSS. No events noted overnight. No complaints of pain at this time. 2L N/C HS, to come off when awake. Purewick in place, patient wheelchair/bed bound. Call castanon in
reach.
[2024-01-01] MEDS: TOPROL XL 50 MG PO ×2 (09:28→20:50)
[2024-01-01] MEDS: ELIQUIS 5 MG PO ×2 (09:28→20:49)
[2024-01-01] MEDS: HYDROPHOR 1 APPLIC TOPICAL (09:29)
--- NOTE | 2024-01-01 09:29 | PN.CDI ---
CDI
- -
CDI:
Physician Documentation Request
Admit Date: 12/29/23 19:07
Dear Doctor Do,
Please review the following and provide your response in the progress notes.
Clinical Indicators:
Pt admitted with DM with hyperglycemia/ RLE Cellulitis /noncompliance with medications
Documented per [facility] note 12/30,' Patient known to service,last seen on 07/20/23 for healing L ischial stage 4 pressure injury. Since last seen, wound flatter, dry cleaner helper and less deep. No odor, induration or signs of infection, macerated edges. Sacrum
with small stage 3 PI, silicone foam in use. R lower leg with venous ulcers, pink at base....Dressing changed to L ischium, with skin prep to periwound, 1' Iodoform packing,(2.5cm depth at 7 o clock) gauze and silicone foam. R leg with Xeroform,
gauze and silicone foam. ... Sacral silicone foam in use on sacrum...'
Physician documentation of the type and location of wounds is required for compliant documentation. Based on the above clinical findings and your assessment, please provide the following in your progress note:
1. Location of the ulcer/wound, including laterality. ( FOR EACH WOUND)
2. Type (etiology) of ulcer/wound:
- Pressure (decubitus) ulcer
- Non-pressure ulcer
- Other
Use of terms such as suspected, likely, concern for, or probable (associated with a specific diagnosis that is being evaluated, monitored, or treated as if it exists) are acceptable and can be coded in the inpatient setting, when documented at the
time of discharge.
Thank you,
Cynthia Soto RN
CDI Specialist
[place] Text
Please use your independent medical judgment in providing your response.
*Source: National Pressure Ulcer Advisory Panel (NPUAP)
--- NOTE | 2024-01-01 10:26 | VNURNOTE ---
Follow up calls made to [facility] and [facility] regarding in home physician visits.
Message left again on both numbers and awaiting return call to see if patient is eligible for in home MD visits in order to establish a PCP and then have [facility].
Call to [facility] and message left for intake.
No [facility] referral made until patient is established with a PCP.
Home Health Liaison asked patient for her permission to speak to son but was declined.
[2024-01-01] MEDS: NOVOLOG FLEXPEN 12 UNITS SC ×2 (11:00→13:36)
[2024-01-01] MEDS: NOVOLOG FLEXPEN-MODERATE RESISTANCE 3 UNITS SC (11:02)
[2024-01-01 11:10] LABS: Glucose - Point of Care 227 mg/dl (70-99)
[2024-01-01 12:00] VITALS: BP 127/76
[2024-01-01] MEDS: NOVOLOG FLEXPEN-MODERATE RESISTANCE 1 UNITS SC (13:36)
[2024-01-01 13:55] LABS: Glucose - Point of Care 170 mg/dl (70-99)
--- NOTE | 2024-01-01 16:21 | VNURNOTE ---
[facility] [phone] has returned call and message received that they are at full capacity and are unable to take any patients at this time.
--- NOTE | 2024-01-01 17:27 | CM ---
Patient with Hx including chronic ambulatory dysfunction, colostomy with Dx Uncontrolled type 2 DM with hyperglycemia secondary to medication noncompliance, RLE cellulitis. Room air. Receiving IV cefazolin. Seen by DM Educator - glucometer issued.
Seen by wound care nurse: daily wound care R leg, L ischium. Sacral wound care Q3days. PT & OT recommend HH.
Noting prior CM notes; CM spoke with son who was willing to take her to PCP appointments.
CM conferred with FIL[facility] Liaison today; major efforts made to setup PCP who could see patient at home have been unsuccessful. Without PCP patient cannot be seen by [facility]. Patient declines to take transport to PCP office.
Plan home.
[2024-01-01] MEDS: LASIX 40 MG PO (17:53)
[2024-01-01 17:54] VITALS: BP 143/52
[2024-01-01 18:13] LABS: Glucose - Point of Care 88 mg/dl (70-99)
[2024-01-01] MEDS: LANTUS 0.440000000000000002 UNITS SC (18:52)
[2024-01-01] MEDS: NOVOLOG FLEXPEN-MODERATE RESISTANCE SC (18:52)
[2024-01-01] MEDS: NOVOLOG FLEXPEN 10 UNITS SC (18:52)
[2024-01-01] MEDS: REMERON 7.5 MG PO (20:49)
[2024-01-01] MEDS: LIPITOR 40 MG PO (20:49)
[2024-01-01] MEDS: ROXICODONE 5 MG PO (20:58)
--- NOTE | 2024-01-01 22:00 | PTCARENOTE ---
Pt downgraded to tele. Report called to floor spoke with Miki DC. Pt transported via wheelchair with all personal belongings to room 433-1.
[2024-01-01 22:01] LABS: Glucose - Point of Care 185 mg/dl (70-99)
[2024-01-01 22:38] VITALS: BP 144/54
--- NOTE | 2024-01-01 22:47 | PTCARENOTE ---
Pt transferred from IMU to room 433-01. Pt transferred with x1 assist pivot from wheelchair to bed. Pt oriented to room, call castanon within reach. VS on transfer stable. Wound care dressings remain intact. Pt placed on telemetry, contact
precautions maintained. Will continue to monitor.
[2024-01-02] MEDS: ANCEF 5 IV ×2 (00:21→07:53)
[2024-01-02] MEDS: ROXICODONE 5 MG PO ×2 (01:02→21:41)
[2024-01-02 03:47] VITALS: BP 126/49
[2024-01-02 05:28] VITALS: BMI 26.9
[2024-01-02 07:24] LABS: Hematocrit 33.6 % (37.0-47.0); Hemoglobin 10.9 g/dL (12.0-16.0); Mean Corp Hgb Conc. 32.4 g/dL (33.0-37.0); Mean Corpuscular Hgb 28.2 pg (27.0-31.0); Mean Corpuscular Volume 86.8 fL (81.0-99.0); Mean Platelet Volume 10.2 fL (7.4-10.4); Platelet Count 146 10^3/uL (130-400); Red Blood Cell Count 3.87 10^6/uL (4.20-5.40); Red Cell Dist. Width 15.2 % (11.5-14.5); White Blood Cell Count 5.1 10^3/uL (4.8-10.8)
[2024-01-02 07:37] LABS: Glucose - Point of Care 227 mg/dl (70-99)
[2024-01-02 07:44] VITALS: BP 128/61
[2024-01-02 07:46] LABS: Blood Urea Nitrogen 51 mg/dl (7-17); Calcium 8.7 mg/dl (8.4-10.2); Carbon Dioxide 27 mmol/L (22-30); Chloride 102 mmol/L (98-107); Estimated Creatinine Clearance 28 ml/min; Glucose 226 mg/dl (70-99); Potassium 4.4 mmol/L (3.5-5.1); Sodium 136 mmol/L (135-145); eGFR 29.75
[2024-01-02] MEDS: HYDROPHOR 1 APPLIC TOPICAL (07:54)
[2024-01-02] MEDS: ELIQUIS 5 MG PO ×2 (07:54→21:31)
[2024-01-02] MEDS: TOPROL XL 50 MG PO ×2 (07:54→21:31)
[2024-01-02] MEDS: LASIX 80 MG PO (07:54)
[2024-01-02] MEDS: NOVOLOG FLEXPEN-MODERATE RESISTANCE 3 UNITS SC ×2 (08:57→12:46)
[2024-01-02] MEDS: NOVOLOG FLEXPEN 12 UNITS SC ×3 (08:57→18:12)
--- NOTE | 2024-01-02 09:07 | W.PN.HOSP.TC ---
Today's Communication/Plan
-
Medically stable for discharge
Discharge delayed as it is difficult arranging for home care for her
Assessment / Plan
Assessment / Plan
HPI: 73-year-old female with a past medical history of type 2 diabetes, paroxysmal atrial fibrillation on Eliquis, hypertension, anxiety, Charcot ankle, and chronic ambulatory dysfunction presented to the ER for medication refills, found to have
hyperglycemia with a blood sugar of 574.� She no longer has a PCP, and ran out of her medications several weeks ago.� She is not in DKA.� She denies any overt symptoms.� She does have right lower extremity wounds with associated erythema and
tenderness.
#Uncontrolled type 2 diabetes with hyperglycemia secondary to medication noncompliance, hemoglobin A1c 15.4
Patient presented to the ER for medication refills, she states she ran out of her insulin, and has not taken it for several days
Her blood sugars have improved since resuming insulin
Appreciate diabetes nurse practitioner input
Lantus increased to 44 units at night, novolog increased to 12 units AC 3 times daily, sliding scale insulin
Medically stable for discharge
Discharge delayed as it is difficult arranging for home care for her
#Right lower extremity cellulitis
#Right lower extremity wounds
No, RLE cellulitis is not related to/associated with/due to Diabetes but it is due to RLE wounds
Wound care, status post Ancef for 5 days, changed to Keflex for an additional 5 days to complete a 10-day course
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
#Sacrum with small stage 3 pressure injury
Wound care
#Medication noncompliance
Patient reports not having a PCP anymore, case management consulted
Patient states there is no one to take her to see a primary care doctor, discussed with her son on 2/1�he is willing to take her
#Paroxysmal atrial fibrillation
Continue Eliquis and metoprolol succinate
#Pseudohyponatremia
Due to hyperglycemia, improving
#Stage III chronic kidney disease
Creatinine 1.8 today, about her baseline
#Chronic systolic heart failure
#Bilateral lower extremity edema
Dopplers negative for DVT
Status post IV Lasix
Resumed oral Lasix
# Hyperlipidemia
Continue Lipitor
#Anxiety
Continue mirtazapine and BuSpar
#Chronic ambulatory dysfunction secondary to Charcot ankle
Patient uses wheelchair to get around home
DVT prophylaxis -Eliquis
DNR
Physical Exam
General: Obese, no acute distress
HEENT: Normocephalic, Atraumatic, EOMI, MMM
Respiratory: Clear to Auscultation bilaterally
Cardiac: Normal S1/S2, Regular Rate and Rhythm
GI: Soft, Nontender, Nondistended, Normal Bowel Sounds
Extremities: No Clubbing, Cyanosis
Bilateral lower extremity edema, right greater than left
Scattered wounds on right andres with surrounding erythema and edema, erythema improved from admission
Left first toe amputation
Derm: Healing L ischial stage 4 pressure injury
Sacrum with small stage 3 pressure injury
Anticipated Discharge: Within 24 hours
Subjective/Interval History
-
Date of Service: January 02, 2024
No acute events.
Objective Data
-
Labs:
Laboratory Results
01/02/24
06:48
WBC 5.1
Hgb 10.9 L
Hct 33.6 L
Plt Count 146
Sodium 136
Potassium 4.4
Chloride 102
Carbon Dioxide 27
BUN 51 H
Creatinine 1.8 H
Glucose 226 H
Calcium 8.7
Vital Signs:
Vital Signs
Temp Pulse Resp BP Pulse Ox
97.8 F 61 16 128/61 99
01/02/24 07:44 01/02/24 07:44 01/02/24 07:44 01/02/24 07:44 01/02/24 07:44
I&O
01/01/24 01/02/24 01/03/24
06:59 06:59 06:59
Intake Total 780 / 780 720 / 720
Output Total 600 / 600 150 / 150
Balance 180 / 180 570 / 570
[2024-01-02 11:35] LABS: Glucose - Point of Care 212 mg/dl (70-99)
[2024-01-02 11:36] VITALS: BP 124/41
[2024-01-02 15:36] VITALS: BP 118/43
[2024-01-02 16:40] LABS: Glucose - Point of Care 140 mg/dl (70-99)
[2024-01-02] MEDS: LASIX 40 MG PO (18:13)
[2024-01-02] MEDS: LANTUS 0.440000000000000002 UNITS SC (18:13)
[2024-01-02] MEDS: NOVOLOG FLEXPEN-MODERATE RESISTANCE SC (18:14)
[2024-01-02 19:30] VITALS: BP 139/57
[2024-01-02] MEDS: REMERON 7.5 MG PO (21:30)
[2024-01-02] MEDS: LIPITOR 40 MG PO (21:30)
[2024-01-02] MEDS: KEFLEX 500 MG PO (21:31)
[2024-01-02 21:49] LABS: Glucose - Point of Care 103 mg/dl (70-99)
[2024-01-02 23:45] VITALS: BP 119/38
[2024-01-03 03:45] VITALS: BP 122/48
[2024-01-03 06:00] VITALS: BMI 26.5
[2024-01-03] MEDS: TYLENOL 650 MG PO (06:21)
[2024-01-03 07:15] VITALS: BP 123/43
[2024-01-03 07:18] LABS: Glucose - Point of Care 75 mg/dl (70-99)
--- NOTE | 2024-01-03 08:40 | W.PN.HOSP.TC ---
Today's Communication/Plan
-
Medically stable for discharge to rehab when bed available
Assessment / Plan
Assessment / Plan
HPI: 73-year-old female with a past medical history of type 2 diabetes, paroxysmal atrial fibrillation on Eliquis, hypertension, anxiety, Charcot ankle, and chronic ambulatory dysfunction presented to the ER for medication refills, found to have
hyperglycemia with a blood sugar of 574.� She no longer has a PCP, and ran out of her medications several weeks ago.� She is not in DKA.� She denies any overt symptoms.� She does have right lower extremity wounds with associated erythema and
tenderness.
#Uncontrolled type 2 diabetes with hyperglycemia secondary to medication noncompliance, hemoglobin A1c 15.4
Patient presented to the ER for medication refills, she states she ran out of her insulin, and has not taken it for several days
Her blood sugars have improved since resuming insulin
Appreciate diabetes nurse practitioner input
Lantus increased to 44 units at night, novolog increased to 12 units AC 3 times daily, sliding scale insulin
Medically stable for discharge -but patient needs SNF
#Right lower extremity cellulitis
#Right lower extremity wounds
No, RLE cellulitis is not related to/associated with/due to Diabetes but it is due to RLE wounds
Wound care
Resolving status post Ancef for 5 days, continue Keflex through 01/07/24 to complete a 10-day course
#Chronic ambulatory dysfunction secondary to Charcot ankle
Patient uses wheelchair to get around home
PT initially recommended home care
Will ask PT to reevaluate for SNF
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
#Sacrum with small stage 3 pressure injury
Wound care
#Medication noncompliance
Patient reports not having a PCP anymore, case management consulted
Patient states there is no one to take her to see a primary care doctor, discussed with her son on 1�he is willing to take her
#Paroxysmal atrial fibrillation
Continue Eliquis and metoprolol succinate
#Pseudohyponatremia
Due to hyperglycemia, improving
#Stage III chronic kidney disease
Creatinine 1.8 today, about her baseline
#Chronic systolic heart failure
#Bilateral lower extremity edema
Dopplers negative for DVT
Status post IV Lasix
Resumed oral Lasix
# Hyperlipidemia
Continue Lipitor
#Anxiety
Continue mirtazapine and BuSpar
DVT prophylaxis -Eliquis
DNR
Physical Exam
General: Obese, no acute distress
HEENT: Normocephalic, Atraumatic, EOMI, MMM
Respiratory: Clear to Auscultation bilaterally
Cardiac: Normal S1/S2, Regular Rate and Rhythm
GI: Soft, Nontender, Nondistended, Normal Bowel Sounds
Extremities: No Clubbing, Cyanosis
Bilateral lower extremity edema, right greater than left
Scattered wounds on right andres with surrounding erythema and edema, erythema improved from admission
Left first toe amputation
Derm: Healing L ischial stage 4 pressure injury
Sacrum with small stage 3 pressure injury
Anticipated Discharge: 24 - 48 hours
Subjective/Interval History
-
Date of Service: January 03, 2024
No acute changes.
Objective Data
-
Vital Signs:
Vital Signs
Temp Pulse Resp BP Pulse Ox
97.8 F 61 18 123/43 98
01/03/24 07:15 01/03/24 07:15 01/03/24 07:15 01/03/24 07:15 01/03/24 07:15
I&O
01/02/24 01/03/24 01/04/24
06:59 06:59 06:59
Intake Total 720 / 720 1140 / 1140
Output Total 150 / 150 750 / 750
Balance 570 / 570 390 / 390
[2024-01-03] MEDS: NOVOLOG FLEXPEN-MODERATE RESISTANCE SC (09:22)
[2024-01-03] MEDS: NOVOLOG FLEXPEN 12 UNITS SC ×3 (09:23→18:20)
[2024-01-03] MEDS: LASIX 80 MG PO (09:24)
[2024-01-03] MEDS: ELIQUIS 5 MG PO ×2 (09:24→20:31)
[2024-01-03] MEDS: TOPROL XL 50 MG PO ×2 (09:24→20:31)
[2024-01-03] MEDS: HYDROPHOR 1 APPLIC TOPICAL (09:24)
[2024-01-03] MEDS: KEFLEX 500 MG PO ×2 (09:24→20:31)
[2024-01-03 11:00] VITALS: BP 90/56
[2024-01-03 12:32] LABS: Glucose - Point of Care 168 mg/dl (70-99)
--- NOTE | 2024-01-03 12:40 | CM ---
Addendum entered by Shelby Bullock 01/03/24 16:14:
Patient declined physical and occupational therapy.
Original Note:
Spoke with patient bedside.
Patient still not agreeable to skilled rehab.
CM asked patient to think about it because of her wounds.
Patient still with no PCP and transportation is a problem.
Will continue search for home MD/PA for patient on Thursday.
Patient stated her son cannot help because he works and she doesnt want to do that to him.
Patient stated she can do her own wound care at home 'just slap a dressing on', although stated she is unable to pack the wounds.
Plan: home with possible VN if accepted by an agenct , possible skilled if patient agrees.
[2024-01-03] MEDS: NOVOLOG FLEXPEN-MODERATE RESISTANCE 1 UNITS SC ×2 (13:05→18:20)
[2024-01-03 15:33] VITALS: BP 134/54
[2024-01-03 16:46] LABS: Glucose - Point of Care 157 mg/dl (70-99)
--- NOTE | 2024-01-03 18:12 | PTCARENOTE ---
Pt agreeable to get into chair for dinner after much encouragement. Pt able to sit on EOB without assistance. Pt attempted to stand 3 times independently and was unable. Pt ultimately required minimal assistance of one person for sit to stand with
walker.
[2024-01-03] MEDS: LANTUS 0.440000000000000002 UNITS SC (18:21)
[2024-01-03] MEDS: LASIX 40 MG PO (18:21)
[2024-01-03 19:03] VITALS: BP 112/66
[2024-01-03 20:11] LABS: Insulin, Random 77 uIU/mL
[2024-01-03] MEDS: ROXICODONE 5 MG PO (20:35)
[2024-01-03] MEDS: LIPITOR 40 MG PO (21:22)
[2024-01-03] MEDS: REMERON 7.5 MG PO (21:22)
[2024-01-03 22:02] LABS: Glucose - Point of Care 100 mg/dl (70-99)
[2024-01-03 23:39] VITALS: BP 121/35
[2024-01-04 03:12] VITALS: BP 134/56
[2024-01-04 05:08] VITALS: BMI 26.5
--- NOTE | 2024-01-04 05:10 | PTCARENOTE ---
Patient doesn't like to be turned much, once she is in a comfortable position. Nurse and I discussed the matter.
--- NOTE | 2024-01-04 07:35 | PN.DE.MGMTRT ---
Insulin Management
- -
12/30/2023 Patient admitted 12/29 due to hyperglycemia because she had no needles to take her insulin. PMH CAD, Hodgkins lymphoma, CHF, HTN, HCL, diabetes. Glucose on admission >600.
A1C on admission 15.4%, cr 1.5, egfr 37.03.
Her home regimen of 30 units Lantus @ hs was given last hs, fasting glucose this AM 219. Will increase hs Lantus to 35 units. 8 units NovoLog AC has been started this AM with corrective insulin. Will follow for need to adjust.
12/31/2023 Diabetes Management Follow up
Insulin doses increased yesterday glucose remains > 200. Received 35 units of Lantus @ hs, fasting glucose this AM 397. Will increase HS Lantus to 40 units. Pre meal glucose remained > 200 requiring 4 units corrective insulin. Will increase AC
NovoLog to 12 units with corrective insulin. Will change corrective insulin from high to moderate. Will follow.
01/01/2024: Diabetes Management F/U:
Insulin doses increased yesterday and premeal glucose improved to 130-147, however, FBG remains > 200, was 257 this AM.
Will further increase Lantus to 44 units. Cont AC NovoLog 12 units with moderate corrective insulin.
Will follow for need to further adjust insulin.
01/04/2024: Diabetes Management f/u:
Pt awaiting SNF placement. Glucose stable.
FBG pending, premeal 91-168. Will make no changes to current regimen: Lantus 44 units and AC NovoLog 12 units with moderate corrective insulin.
Diabetes History
- -
Type of Diabetes: 2 requiring insulin
Pre-Admission Diabetes Regimen
Lab Results
Hemoglobin A1c 15.4 % (4.0-5.6) H 12/30/23 04:57
Insulin Pump Settings
IP Diabetes Regimen
01/03/24 01/03/24 01/03/24
16:45 22:01
POC Glucose 168 H 157 H 100 H
Meal type: Dinner
Meal type: Lunch
Meal type: Breakfast
Amount consumed: 100%
Amount consumed: 100%
Amount consumed: 100%
Patient Education
[2024-01-04 07:55] VITALS: BP 133/43
[2024-01-04 08:07] LABS: Glucose - Point of Care 91 mg/dl (70-99)
[2024-01-04] MEDS: NOVOLOG FLEXPEN-MODERATE RESISTANCE SC ×2 (08:38→15:29)
[2024-01-04 09:27] LABS: Hematocrit 32.9 % (37.0-47.0); Hemoglobin 10.8 g/dL (12.0-16.0); Mean Corp Hgb Conc. 32.8 g/dL (33.0-37.0); Mean Corpuscular Hgb 28.3 pg (27.0-31.0); Mean Corpuscular Volume 86.4 fL (81.0-99.0); Mean Platelet Volume 9.8 fL (7.4-10.4); Platelet Count 163 10^3/uL (130-400); Red Blood Cell Count 3.81 10^6/uL (4.20-5.40); Red Cell Dist. Width 15.2 % (11.5-14.5)
[2024-01-04 09:46] LABS: Blood Urea Nitrogen 69 mg/dl (7-17); Calcium 8.6 mg/dl (8.4-10.2); Carbon Dioxide 28 mmol/L (22-30); Chloride 103 mmol/L (98-107); Estimated Creatinine Clearance 25 ml/min; Glucose 84 mg/dl (70-99); Magnesium 2.1 mg/dl (1.6-2.3); Phosphorus 4.1 mg/dl (2.5-4.5); Sodium 135 mmol/L (135-145); eGFR 26.22
[2024-01-04] MEDS: ELIQUIS 5 MG PO (10:18)
[2024-01-04] MEDS: LASIX 80 MG PO (10:18)
[2024-01-04] MEDS: KEFLEX 500 MG PO (10:18)
[2024-01-04] MEDS: NOVOLOG FLEXPEN 12 UNITS SC (10:19)
[2024-01-04] MEDS: TOPROL XL 50 MG PO (10:19)
--- NOTE | 2024-01-04 10:42 | W.PN.HOSP.TC ---
Today's Communication/Plan
-
Remains noncompliant refused PT over the weekend
Now refusing to go to acute rehab for dressing changes and packing which will have to be performed at home with VNA
Patient otherwise medically stable for discharge
To complete course of cephalexin through 07 January for 10-day course
Assessment / Plan
Assessment / Plan
HPI: 73-year-old female with a past medical history of type 2 diabetes, paroxysmal atrial fibrillation on Eliquis, hypertension, anxiety, Charcot ankle, and chronic ambulatory dysfunction presented to the ER for medication refills, found to have
hyperglycemia with a blood sugar of 574.� She no longer has a PCP, and ran out of her medications several weeks ago.� She is not in DKA.� She denies any overt symptoms.� She does have right lower extremity wounds with associated erythema and
tenderness.
#Uncontrolled type 2 diabetes with hyperglycemia secondary to medication noncompliance, hemoglobin A1c 15.4
Patient presented to the ER for medication refills, she states she ran out of her insulin, and has not taken it for several days
Her blood sugars have improved since resuming insulin
Appreciate diabetes nurse practitioner input
Lantus increased to 44 units at night, novolog increased to 12 units AC 3 times daily, sliding scale insulin
Medically stable for discharge -but patient needs SNF that she is now refusing
#Right lower extremity cellulitis
#Right lower extremity wounds
No, RLE cellulitis is not related to/associated with/due to Diabetes but it is due to RLE wounds
Wound care
Resolving status post Ancef for 5 days, continue Keflex through 01/07/24 to complete a 10-day course
#Chronic ambulatory dysfunction secondary to Charcot ankle
Patient uses wheelchair to get around home
PT initially recommended home care
Will ask PT to reevaluate for SNF/she refused PT over the weekend
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
#Sacrum with small stage 3 pressure injury
Wound care
#Medication noncompliance
Patient reports not having a PCP anymore, case management consulted
Patient states there is no one to take her to see a primary care doctor, discussed with her son on 2/1�he is willing to take her
#Paroxysmal atrial fibrillation
Continue Eliquis and metoprolol succinate
#Pseudohyponatremia
Due to hyperglycemia, improving
#Stage III chronic kidney disease
Creatinine 1.8 today, about her baseline
#Chronic systolic heart failure
#Bilateral lower extremity edema
Dopplers negative for DVT
Status post IV Lasix
Resumed oral Lasix
# Hyperlipidemia
Continue Lipitor
#Anxiety
Continue mirtazapine and BuSpar
DVT prophylaxis -Eliquis
DNR
Physical Exam
General: Obese, no acute distress
HEENT: Normocephalic, Atraumatic, EOMI, MMM
Respiratory: Clear to Auscultation bilaterally
Cardiac: Normal S1/S2, Regular Rate and Rhythm
GI: Soft, Nontender, Nondistended, Normal Bowel Sounds
Extremities: No Clubbing, Cyanosis
Bilateral lower extremity edema, right greater than left
Scattered wounds on right andres with surrounding erythema and edema, erythema improved from admission
Left first toe amputation
Derm: Healing L ischial stage 4 pressure injury
Sacrum with small stage 3 pressure injury
Anticipated Discharge: Today
Subjective/Interval History
-
Date of Service: January 04, 2024
Frida is absolutely refusing any thoughts of going to rehab and wants to have VNA behavioral health case manager wounds although this has been an issue in the past in relation to noncompliance and she is also refused physical therapy over the weekend.
Objective Data
-
Labs:
Laboratory Results
01/04/24
09:17
WBC 5.0
Hgb 10.8 L
Hct 32.9 L
Plt Count 163
Sodium 135
Potassium 4.0
Chloride 103
Carbon Dioxide 28
BUN 69 H
Creatinine 2.0 H
Glucose 84
Calcium 8.6
Vital Signs:
Vital Signs
Temp Pulse Resp BP Pulse Ox
98.4 F 61 16 133/43 96
01/04/24 07:55 01/04/24 07:55 01/04/24 07:55 01/04/24 07:55 01/04/24 07:55
I&O
01/03/24 01/04/24 01/05/24
06:59 06:59 06:59
Intake Total 1140 / 1140 900 / 900
Output Total 750 / 750 400 / 400
Balance 390 / 390 500 / 500
Review of Systems
-
History Source: Patient
EENT: Reports Dry Eyes
Abdomen/GI: Reports No Symptoms
Musculoskeletal: Reports Joint Swelling and Edema (rll)
Skin: Reports Sores
Physical Exam
-
General: Well Developed
HEENT: Normocephalic
Respiratory: Clear to Auscultation
Cardiac: Regular Rhythm (paced) and Irregular Rhythm
GI: Soft
Musculoskeletal: Edema, Right Lower Extrem
Skin: Ulcers
Psych: Calm
Data Reviewed
-
Total Time Spent with Patient (in minutes): 45
Labs: Labs Reviewed by me
--- NOTE | 2024-01-04 11:13 | CM ---
Addendum entered by Casandra Vasquez 01/04/24 14:45:
MARLEEN spoke with Kimber/Serena whose left multiple messages on both the patient and her son Jesus' cell phones to try and coordinate setting up the patient with a primary care physician (Therese Islas) that works very closely with [facility]
Patient's son Jesus was given written & verbal instructions on wound care tx; in addition to supplies until home care is able to come to assess patient and tx wound per d/c instructions
Addendum entered by Casandra Vasquez 01/04/24 12:14:
CM placed a call to Kimber Benson/clinical liaison with [facility]
Pt is also known to their home care agency; Kimber did some digging and reports patient is known to Dr. Denton
Kimber has placed a call to see if patient is current with [facility]ano's office and if not is working on a physician coming to the patient's home especially with current status of patient's wound(s)
MARLEEN also spoke with the patient's son Jesus who did confirm he'd be transporting he patient home at time of d/c
IMM also reviewed and copy provided
CM awaiting updated information from [facility] regarding home care service [facility]
PLAN; CM following for needs
Original Note:
CM following re: d/c planning
Chart reviewed
Pt is stable for d/c
Per previous CM documentation, pt has been non-compliant with therapy and tx options
Pt states she can manage wound care herself at home
Pt has no established PCP which also inhibits home care
CM will provide patient a list of local physicians in the area she can contact to see about finding a PCP within the community
Additionally noted, patient does have a hospital bed at home; however an air mattress cannot be ordered because the patient refuses to use the hospital bed
CM did call and leave a voice mail message for the patient's son to inform that she has been discharged from the hospital and asked if he'd be transporting her home at time of d/c
PLAN; d/c home no needs
[2024-01-04 11:55] VITALS: BP 115/42
[2024-01-04] MEDS: HYDROPHOR 1 APPLIC TOPICAL (12:48)
--- NOTE | 2024-01-04 13:03 | W.DCSUMMARY ---
Discharge Summary
Discharge Data
Date of Admission: 12/29/23
Date of Discharge: 01/04/24
-
Pending Results: No
Hospital Course
33-year-old female who is largely noncompliant to her multiple comorbidities include type 2 diabetes mellitus paroxysmal A-fib on Eliquis hypertension anxiety [place] ankle along with chronic ambulatory dysfunction and presented to the ER as she
for medication refills and was found to have hyperglycemia with a blood sugar of 574 stating that she no longer had a PCP and ran out of her medications several weeks ago she was not and in ketoacidosis and was admitted to the medical floor with
poorly controlled type type 2 diabetes mellitus she was also found to have right lower extremity cellulitis requiring wound care and initial course of IV antibiotics switched to oral antibiotic course at time of discharge to be completed she also
suffers from chronic ambulatory dysfunction secondary to obstructive ankle with PT initially recommending home care but then later changed to recommendation for subacute nursing facility which the patient continues to refuse at times also refusing
PT assessments. She was noted to have a healing left ischial stage IV pressure ulcer injury she has had improvement with initial course of IV antibiotics and switch to oral antibiotic she she can needs continued wound care she also has a stage III
pressure injury to her sacrum
Since the patient is refusing acute rehab which is recommended our only choice is to arrange for visiting nurse [facility] for follow-up and wound care and packing to the wound
Medication changes also included the increase of Lantus insulin to 44 units at night and NovoLog increased to 12 units with meals 3 times daily during hospitalization she was on a sliding scale coverage scale
It is my recommendation that the patient should go to an acute rehab facility to avoid recurrent admissions but the patient is steadfast in refusing this I believe she is competent to make that decision and cannot refute that. Will have case
management make arrangements for home care and wound care
She should complete course of antibiotics through 07 January.
Multiple comorbidities include poorly controlled diabetes mellitus type 2 multiple ulcers including a left ischial stage IV and a sacral stage III
Right lower extremity cellulitis and right lower extremity wounds
Pseudohyponatremia from hyperglycemia
Stage III chronic kidney disease stable creatinine at 1.8
Chronic systolic heart failure with bilateral lower extremity edema
Discharge Plan
-
Patient Disposition: Residential/SNF
Discharge Diagnosis/Procedures: Uncontrolled type 2 diabetes with hyperglycemia, right lower extremity cellulitis, medication noncompliance, right lower extremity wounds, chronic ambulatory dysfunction, healing left ischial stage IV pressure injury,
sacrum with stage III pressure injury, paroxysmal atrial fibrillation on Eliquis, pseudohyponatremia, chronic systolic heart failure, bilateral lower extremity edema, hyperlipidemia, anxiety
Condition: Good
Diet: Low Sodium and Diabetic, Carb Controlled
Activity: As tolerated
Activity Restrictions/Additional Instructions:
Wound Care Instructions
R leg: clean with soap and water, Xeroform, dry dressing change daily and prn drainage.
L ischium: clean with soap and water, skin prep periwound, 1' iodoform packing( deepest from 6-11 oclock) cover with gauze then silicone foam change daily and prn drainage.
Sacrum: clean with soap and water, skin prep periwound, sacral silicone foam change q 3 days and prn drainage.
Mineral oil on legs and feet daily after bathing
Tubigrip knee high daily leg elevation when sitting
Follow up at wound care center call for an appointment.
Referrals:
NONE,* [Family Provider] -
Prescriptions:
New
cephalexin 500 mg Capsule
500 mg PO BID Qty: 6 0RF
oxycodone 5 mg Tablet
5 mg PO Q4HPRN PRN (Reason: moderate pain) Qty: 20 0RF
insulin aspart U-100 [Novolog FlexPen U-100 Insulin] 100 unit/mL (3 mL) Insulin Pen
12 unit SC AC Qty: 15 0RF
white petrolatum [Hydrophor] 42 % Ointment
1 applic topical DAILY Qty: 100 0RF
Insulin Glargine Lantus [Lantus] 44 UNITS
Subcutaneous Insulin Syringe [Syringe-Insulin] 0 UNIT
As Directed mls/hr SC QPM
Reason for use: Diabetes
Ordered By: John Hallman MD
Last Taken: 01/03/24 18:21 0.44 mls
Continued
metoprolol succinate 50 MG tablet extended release 24 hr
50 mg PO BID
atorvastatin [Lipitor] 40 mg Tablet
40 mg PO HS
buspirone 5 mg Tablet
5 mg PO BID
mirtazapine 7.5 mg Tablet
7.5 mg PO HS
Eliquis 5 MG tablet
5 mg PO BID
furosemide [Lasix] 40 mg Tablet
40 mg PO QPM
furosemide 80 mg tablet
80 mg PO DAILY
Discontinued
potassium chloride 20 mEq/15 mL Liquid
20 meq PO BID
insulin aspart U-100 [Novolog FlexPen U-100 Insulin] 100 unit/mL (3 mL) Insulin Pen
8 unit SC AC Qty: 15 0RF
insulin glargine [Basaglar KwikPen U-100 Insulin] 100 unit/mL (3 mL) insulin pen
30 unit SC QPM
Discharge Orders:
Discharge Patient (As Directed); Ordered 01/04/24
Ordered By: John Hallman
--- NOTE | 2024-01-04 13:15 | W.DS.TRANS ---
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
-
Discharge Instructions:
Sleep Apnea Risk Low
Discharge Diagnosis/Procedures Uncontrolled type 2 diabetes with hyperglycemia,
right lower extremity cellulitis, medication
noncompliance, right lower extremity wounds,
chronic ambulatory dysfunction, healing left
ischial stage IV pressure injury, sacrum with
stage III pressure injury, paroxysmal atrial
fibrillation on Eliquis, pseudohyponatremia,
chronic systolic heart failure, bilateral lower
extremity edema, hyperlipidemia, anxiety
Diet Diabetic, Carb Controlled,Low Sodium
Activity As tolerated
Instructions:
Stand-Alone Forms:
Changes to Home Medications: Yes
Discharge Medications:
DC Medications w/original date entered in [employer]
metoprolol succinate 50 mg tablet,extended release 24 hr 50 mg PO BID Heart disease/condition 12/03/20
atorvastatin 40 mg tablet (Lipitor) 40 mg PO HS High cholesterol 02/18/23
buspirone 5 mg tablet 5 mg PO BID Mental Health/Anxiety 02/18/23
mirtazapine 7.5 mg tablet 7.5 mg PO HS Mental Health/Anxiety 02/18/23
apixaban 5 mg tablet (Eliquis) 5 mg PO BID Paroxysmal atrial fibrillation 05/11/23
furosemide 40 mg tablet (Lasix) 40 mg PO QPM Fluid Retention/Swelling 12/29/23
furosemide 80 mg tablet 80 mg PO DAILY Fluid Retention/Swelling 12/30/23
Insulin Glargine Lantus [Lantus] 44 units As Directed mls/hr SC QPM Diabetes 01/04/24
cephalexin 500 mg capsule 500 mg PO BID #6 caps 01/04/24
insulin aspart U-100 100 unit/mL (3 mL) subcutaneous pen (Novolog FlexPen U-100 Insulin aspart) 12 unit (0.12 mL) SC AC #15 mL 01/04/24
oxycodone 5 mg tablet 5 mg PO Q4HPRN PRN moderate pain #20 tabs 01/04/24
white petrolatum 42 % topical ointment (Hydrophor) 1 applic topical DAILY Skin issues #100 grams 01/04/24
Home Medication Changes
Insulin Glargine Lantus [Lantus] 44 units As Directed mls/hr SC QPM Diabetes 01/04/24
cephalexin 500 mg capsule 500 mg PO BID #6 caps 01/04/24
insulin aspart U-100 100 unit/mL (3 mL) subcutaneous pen (Novolog FlexPen U-100 Insulin aspart) 12 unit (0.12 mL) SC AC #15 mL 01/04/24
oxycodone 5 mg tablet 5 mg PO Q4HPRN PRN moderate pain #20 tabs 01/04/24
white petrolatum 42 % topical ointment (Hydrophor) 1 applic topical DAILY Skin issues #100 grams 01/04/24
Pending Results: No
[2024-01-04 15:28] LABS: Glucose - Point of Care 166 mg/dl (70-99)
[2024-01-04] MEDS: NOVOLOG FLEXPEN SC (15:29)
--- NOTE | 2024-01-04 15:48 | PTCARENOTE ---
Discharge paperwork read and reviewed with patient and son. Detailed instructions regarding wound care provided. Supplies sent with patient. IV access removed. Telemetry monitoring discontinued. All patient belongings accounted for at time of
discharge.
== END 2024-01-04 15:45 | disposition home health service (06) | DRG 637 ==
LOC: 4 WEST ACU 19:07
PROVIDERS: Emergency Medicine; Physician Assistant; ADMITTING PHYSICIAN Family Medicine; ATTENDING PHYSICIAN Internal Medicine; EMERGENCY PHYSICIAN Emergency Medicine
DX: E11.65 Type 2 diabetes mellitus with hyperglycemia (principal); L89.153 Pressure ulcer of sacral region, stage 3; L89.324 Pressure ulcer of left buttock, stage 4; L03.115 Cellulitis of right lower limb; I50.22 Chronic systolic (congestive) heart failure; Z66 Do not resuscitate; Z91.199 Patient's noncompliance with other medical treatment and regimen due to unspecified reason; E11.610 Type 2 diabetes mellitus with diabetic neuropathic arthropathy; Z79.01 Long term (current) use of anticoagulants; Z91.148 Patient's other noncompliance with medication regimen for other reason; I48.0 Paroxysmal atrial fibrillation; F41.9 Anxiety disorder, unspecified; N18.30 Chronic kidney disease, stage 3 unspecified; E78.00 Pure hypercholesterolemia, unspecified; I11.0 Hypertensive heart disease with heart failure; Z53.20 Procedure and treatment not carried out because of patient's decision for unspecified reasons
CPT/HCPCS: 80048; 80053; 82010; 82805; 82962; 83036; 83525; 83735; 84100; 85025; 85027; 87040; 87070; 87147; 93970; 96360; 96361; 96372; 97163; 97166; 99284

== ENCOUNTER → 2024-01-15 12:22 | Outpatient (REF) | payer MEDICARE, SELFPAY | LOC: RAD 12:22 | PROVIDERS: ATTENDING PHYSICIAN Surgery | DX: L89.314 Pressure ulcer of right buttock, stage 4 (principal) | CPT/HCPCS: 72190; 99204 ==

== ENCOUNTER → 2024-01-28 14:25 | Outpatient (REF) | payer MEDICARE, SELFPAY | LOC: WOUND 14:25 | PROVIDERS: ATTENDING PHYSICIAN Surgery | DX: L89.324 Pressure ulcer of left buttock, stage 4 (principal); L89.152 Pressure ulcer of sacral region, stage 2; I87.311 Chronic venous hypertension (idiopathic) with ulcer of right lower extremity; L97.811 Non-pressure chronic ulcer of other part of right lower leg limited to breakdown of skin; I87.2 Venous insufficiency (chronic) (peripheral); E11.22 Type 2 diabetes mellitus with diabetic chronic kidney disease; I25.10 Atherosclerotic heart disease of native coronary artery without angina pectoris; E11.319 Type 2 diabetes mellitus with unspecified diabetic retinopathy without macular edema; I73.9 Peripheral vascular disease, unspecified; K29.70 Gastritis, unspecified, without bleeding; I25.5 Ischemic cardiomyopathy; I12.9 Hypertensive chronic kidney disease with stage 1 through stage 4 chronic kidney disease, or unspecified chronic kidney disease; N18.9 Chronic kidney disease, unspecified | CPT/HCPCS: 11042; 97597 ==

== ENCOUNTER → 2024-02-11 13:51 | Outpatient (REF) | payer MEDICARE, SELFPAY | LOC: WOUND 13:51 | PROVIDERS: ATTENDING PHYSICIAN Surgery | DX: L89.324 Pressure ulcer of left buttock, stage 4 (principal); L89.152 Pressure ulcer of sacral region, stage 2; I87.311 Chronic venous hypertension (idiopathic) with ulcer of right lower extremity; L97.812 Non-pressure chronic ulcer of other part of right lower leg with fat layer exposed; I87.2 Venous insufficiency (chronic) (peripheral); E11.22 Type 2 diabetes mellitus with diabetic chronic kidney disease; I25.10 Atherosclerotic heart disease of native coronary artery without angina pectoris; E11.319 Type 2 diabetes mellitus with unspecified diabetic retinopathy without macular edema; I73.9 Peripheral vascular disease, unspecified; K29.70 Gastritis, unspecified, without bleeding; I25.5 Ischemic cardiomyopathy; I12.9 Hypertensive chronic kidney disease with stage 1 through stage 4 chronic kidney disease, or unspecified chronic kidney disease; N18.9 Chronic kidney disease, unspecified | CPT/HCPCS: 11042 ==

== ENCOUNTER → 2024-02-26 13:59 | Outpatient (REF) | payer MEDICARE, SELFPAY | LOC: WOUND 13:59 | PROVIDERS: ATTENDING PHYSICIAN Surgery | DX: L89.324 Pressure ulcer of left buttock, stage 4 (principal); L89.152 Pressure ulcer of sacral region, stage 2; I87.311 Chronic venous hypertension (idiopathic) with ulcer of right lower extremity; L97.812 Non-pressure chronic ulcer of other part of right lower leg with fat layer exposed; I87.2 Venous insufficiency (chronic) (peripheral); E11.22 Type 2 diabetes mellitus with diabetic chronic kidney disease; N18.30 Chronic kidney disease, stage 3 unspecified; I25.10 Atherosclerotic heart disease of native coronary artery without angina pectoris; E11.319 Type 2 diabetes mellitus with unspecified diabetic retinopathy without macular edema; I73.9 Peripheral vascular disease, unspecified; K29.70 Gastritis, unspecified, without bleeding; I25.5 Ischemic cardiomyopathy; I12.9 Hypertensive chronic kidney disease with stage 1 through stage 4 chronic kidney disease, or unspecified chronic kidney disease | CPT/HCPCS: 99213 ==

== ENCOUNTER → 2024-03-11 13:43 | Outpatient (REF) | payer MEDICARE, SELFPAY | LOC: WOUND 13:43 | PROVIDERS: ATTENDING PHYSICIAN Surgery | DX: L89.324 Pressure ulcer of left buttock, stage 4 (principal); L89.152 Pressure ulcer of sacral region, stage 2; L97.521 Non-pressure chronic ulcer of other part of left foot limited to breakdown of skin; I87.311 Chronic venous hypertension (idiopathic) with ulcer of right lower extremity; L97.812 Non-pressure chronic ulcer of other part of right lower leg with fat layer exposed; I87.2 Venous insufficiency (chronic) (peripheral); E11.22 Type 2 diabetes mellitus with diabetic chronic kidney disease; I25.10 Atherosclerotic heart disease of native coronary artery without angina pectoris; E11.319 Type 2 diabetes mellitus with unspecified diabetic retinopathy without macular edema; I73.9 Peripheral vascular disease, unspecified; I25.5 Ischemic cardiomyopathy; I12.9 Hypertensive chronic kidney disease with stage 1 through stage 4 chronic kidney disease, or unspecified chronic kidney disease | CPT/HCPCS: 11042; 97597; 99213 ==

== ENCOUNTER → 2024-03-25 13:48 | Outpatient (REF) | payer MEDICARE, SELFPAY | LOC: WOUND 13:48 | PROVIDERS: ATTENDING PHYSICIAN Surgery | DX: L89.324 Pressure ulcer of left buttock, stage 4 (principal); L89.152 Pressure ulcer of sacral region, stage 2; L97.521 Non-pressure chronic ulcer of other part of left foot limited to breakdown of skin; I87.311 Chronic venous hypertension (idiopathic) with ulcer of right lower extremity; L97.812 Non-pressure chronic ulcer of other part of right lower leg with fat layer exposed; I87.2 Venous insufficiency (chronic) (peripheral); E11.22 Type 2 diabetes mellitus with diabetic chronic kidney disease; I25.10 Atherosclerotic heart disease of native coronary artery without angina pectoris; N18.30 Chronic kidney disease, stage 3 unspecified; E11.319 Type 2 diabetes mellitus with unspecified diabetic retinopathy without macular edema; I73.9 Peripheral vascular disease, unspecified; K29.70 Gastritis, unspecified, without bleeding; I25.5 Ischemic cardiomyopathy; I12.9 Hypertensive chronic kidney disease with stage 1 through stage 4 chronic kidney disease, or unspecified chronic kidney disease | CPT/HCPCS: 97597 ==

== ENCOUNTER → 2024-04-08 14:28 | Outpatient (REF) | payer OTHER, SELFPAY | LOC: WOUND 14:28 | PROVIDERS: ATTENDING PHYSICIAN Surgery | DX: L89.324 Pressure ulcer of left buttock, stage 4 (principal); L89.152 Pressure ulcer of sacral region, stage 2; L97.521 Non-pressure chronic ulcer of other part of left foot limited to breakdown of skin; I87.311 Chronic venous hypertension (idiopathic) with ulcer of right lower extremity; L97.812 Non-pressure chronic ulcer of other part of right lower leg with fat layer exposed; I87.2 Venous insufficiency (chronic) (peripheral); E11.22 Type 2 diabetes mellitus with diabetic chronic kidney disease; N18.30 Chronic kidney disease, stage 3 unspecified; I25.10 Atherosclerotic heart disease of native coronary artery without angina pectoris; E11.319 Type 2 diabetes mellitus with unspecified diabetic retinopathy without macular edema; I73.9 Peripheral vascular disease, unspecified; K29.70 Gastritis, unspecified, without bleeding; I25.5 Ischemic cardiomyopathy; I10 Essential (primary) hypertension | CPT/HCPCS: 11042; 97597 ==

== ENCOUNTER → 2024-04-21 14:11 | Outpatient (REF) | payer OTHER, SELFPAY | LOC: WOUND 14:11 | PROVIDERS: ATTENDING PHYSICIAN Surgery | DX: L89.324 Pressure ulcer of left buttock, stage 4 (principal); L89.152 Pressure ulcer of sacral region, stage 2; L97.521 Non-pressure chronic ulcer of other part of left foot limited to breakdown of skin; I87.311 Chronic venous hypertension (idiopathic) with ulcer of right lower extremity; L97.812 Non-pressure chronic ulcer of other part of right lower leg with fat layer exposed; I87.2 Venous insufficiency (chronic) (peripheral); E11.22 Type 2 diabetes mellitus with diabetic chronic kidney disease; N18.30 Chronic kidney disease, stage 3 unspecified; I25.10 Atherosclerotic heart disease of native coronary artery without angina pectoris; E11.319 Type 2 diabetes mellitus with unspecified diabetic retinopathy without macular edema; I73.9 Peripheral vascular disease, unspecified; K29.70 Gastritis, unspecified, without bleeding; I25.5 Ischemic cardiomyopathy; I12.9 Hypertensive chronic kidney disease with stage 1 through stage 4 chronic kidney disease, or unspecified chronic kidney disease | CPT/HCPCS: 11042 ==

== ENCOUNTER → 2024-05-06 14:40 | Outpatient (REF) | payer OTHER, SELFPAY | LOC: WOUND 14:40 | PROVIDERS: ATTENDING PHYSICIAN Surgery; FAMILY PHYSICIAN Specialist | DX: L89.324 Pressure ulcer of left buttock, stage 4 (principal); L89.152 Pressure ulcer of sacral region, stage 2; L97.521 Non-pressure chronic ulcer of other part of left foot limited to breakdown of skin; I87.311 Chronic venous hypertension (idiopathic) with ulcer of right lower extremity; L97.812 Non-pressure chronic ulcer of other part of right lower leg with fat layer exposed; I87.2 Venous insufficiency (chronic) (peripheral); E11.22 Type 2 diabetes mellitus with diabetic chronic kidney disease; I12.9 Hypertensive chronic kidney disease with stage 1 through stage 4 chronic kidney disease, or unspecified chronic kidney disease; N18.30 Chronic kidney disease, stage 3 unspecified; I25.10 Atherosclerotic heart disease of native coronary artery without angina pectoris; E11.319 Type 2 diabetes mellitus with unspecified diabetic retinopathy without macular edema; I73.9 Peripheral vascular disease, unspecified; K29.70 Gastritis, unspecified, without bleeding; I25.5 Ischemic cardiomyopathy | CPT/HCPCS: 11042 ==

== ENCOUNTER → 2024-05-27 14:08 | Outpatient (REF) | payer OTHER, SELFPAY | LOC: WOUND 14:08 | PROVIDERS: ATTENDING PHYSICIAN Surgery | DX: L89.324 Pressure ulcer of left buttock, stage 4 (principal); L89.152 Pressure ulcer of sacral region, stage 2; L97.521 Non-pressure chronic ulcer of other part of left foot limited to breakdown of skin; I87.311 Chronic venous hypertension (idiopathic) with ulcer of right lower extremity; L97.812 Non-pressure chronic ulcer of other part of right lower leg with fat layer exposed; I87.2 Venous insufficiency (chronic) (peripheral) | CPT/HCPCS: 11042; 72190 ==

== ENCOUNTER 2024-06-14 06:12 | Outpatient (RCR) | payer SELFPAY | END 2024-06-14 23:59 | disposition home or self-care (01) | LOC: RPT 06:12 | PROVIDERS: ATTENDING PHYSICIAN Surgery | DX: I89.0 Lymphedema, not elsewhere classified (principal) | CPT/HCPCS: 97162; 97535; 97760 ==

== ENCOUNTER → 2024-06-23 13:19 | Outpatient (REF) | payer OTHER, SELFPAY | LOC: WOUND 13:19 | PROVIDERS: ATTENDING PHYSICIAN Surgery | DX: L89.324 Pressure ulcer of left buttock, stage 4 (principal); L89.152 Pressure ulcer of sacral region, stage 2; L97.521 Non-pressure chronic ulcer of other part of left foot limited to breakdown of skin; I87.311 Chronic venous hypertension (idiopathic) with ulcer of right lower extremity; L97.812 Non-pressure chronic ulcer of other part of right lower leg with fat layer exposed; I87.2 Venous insufficiency (chronic) (peripheral); E11.22 Type 2 diabetes mellitus with diabetic chronic kidney disease; N18.30 Chronic kidney disease, stage 3 unspecified; I25.10 Atherosclerotic heart disease of native coronary artery without angina pectoris; E11.319 Type 2 diabetes mellitus with unspecified diabetic retinopathy without macular edema; I73.9 Peripheral vascular disease, unspecified; I89.0 Lymphedema, not elsewhere classified; K29.70 Gastritis, unspecified, without bleeding; I25.5 Ischemic cardiomyopathy; I11.0 Hypertensive heart disease with heart failure; I13.0 Hypertensive heart and chronic kidney disease with heart failure and stage 1 through stage 4 chronic kidney disease, or unspecified chronic kidney disease | CPT/HCPCS: 99213 ==

== ENCOUNTER → 2024-07-08 14:13 | Outpatient (REF) | payer OTHER, SELFPAY | LOC: WOUND 14:13 | PROVIDERS: ATTENDING PHYSICIAN Surgery | DX: L89.324 Pressure ulcer of left buttock, stage 4 (principal); L89.152 Pressure ulcer of sacral region, stage 2; L97.521 Non-pressure chronic ulcer of other part of left foot limited to breakdown of skin; I87.311 Chronic venous hypertension (idiopathic) with ulcer of right lower extremity; L97.812 Non-pressure chronic ulcer of other part of right lower leg with fat layer exposed; I87.2 Venous insufficiency (chronic) (peripheral); E11.22 Type 2 diabetes mellitus with diabetic chronic kidney disease; N18.30 Chronic kidney disease, stage 3 unspecified; I25.10 Atherosclerotic heart disease of native coronary artery without angina pectoris; E11.319 Type 2 diabetes mellitus with unspecified diabetic retinopathy without macular edema; I73.9 Peripheral vascular disease, unspecified; I89.0 Lymphedema, not elsewhere classified; K29.70 Gastritis, unspecified, without bleeding; I25.5 Ischemic cardiomyopathy | CPT/HCPCS: 99213 ==

== ENCOUNTER → 2024-07-22 13:20 | Outpatient (REF) | payer OTHER, SELFPAY | LOC: WOUND 13:20 | PROVIDERS: ATTENDING PHYSICIAN Surgery | DX: L89.324 Pressure ulcer of left buttock, stage 4 (principal); I87.311 Chronic venous hypertension (idiopathic) with ulcer of right lower extremity; L97.812 Non-pressure chronic ulcer of other part of right lower leg with fat layer exposed; L97.521 Non-pressure chronic ulcer of other part of left foot limited to breakdown of skin; I87.2 Venous insufficiency (chronic) (peripheral); E11.22 Type 2 diabetes mellitus with diabetic chronic kidney disease; I25.10 Atherosclerotic heart disease of native coronary artery without angina pectoris; N18.30 Chronic kidney disease, stage 3 unspecified; E11.319 Type 2 diabetes mellitus with unspecified diabetic retinopathy without macular edema; I73.9 Peripheral vascular disease, unspecified; I89.0 Lymphedema, not elsewhere classified; K29.70 Gastritis, unspecified, without bleeding; I25.5 Ischemic cardiomyopathy; I12.9 Hypertensive chronic kidney disease with stage 1 through stage 4 chronic kidney disease, or unspecified chronic kidney disease | CPT/HCPCS: 99213 ==

== ENCOUNTER → 2024-08-05 14:19 | Outpatient (REF) | payer OTHER, SELFPAY | LOC: WOUND 14:19 | PROVIDERS: ATTENDING PHYSICIAN Surgery | DX: L89.324 Pressure ulcer of left buttock, stage 4 (principal); I87.311 Chronic venous hypertension (idiopathic) with ulcer of right lower extremity; L97.812 Non-pressure chronic ulcer of other part of right lower leg with fat layer exposed; L97.521 Non-pressure chronic ulcer of other part of left foot limited to breakdown of skin; I87.2 Venous insufficiency (chronic) (peripheral); E11.22 Type 2 diabetes mellitus with diabetic chronic kidney disease; N18.30 Chronic kidney disease, stage 3 unspecified; I25.10 Atherosclerotic heart disease of native coronary artery without angina pectoris; E11.319 Type 2 diabetes mellitus with unspecified diabetic retinopathy without macular edema; I73.9 Peripheral vascular disease, unspecified; I89.0 Lymphedema, not elsewhere classified; K29.70 Gastritis, unspecified, without bleeding; I25.5 Ischemic cardiomyopathy; I12.9 Hypertensive chronic kidney disease with stage 1 through stage 4 chronic kidney disease, or unspecified chronic kidney disease | CPT/HCPCS: 11042 ==

== ENCOUNTER → 2024-08-19 14:58 | Outpatient (REF) | payer OTHER, SELFPAY | LOC: WOUND 14:58 | PROVIDERS: ATTENDING PHYSICIAN Surgery; FAMILY PHYSICIAN Specialist | DX: L89.324 Pressure ulcer of left buttock, stage 4 (principal); I87.311 Chronic venous hypertension (idiopathic) with ulcer of right lower extremity; L97.812 Non-pressure chronic ulcer of other part of right lower leg with fat layer exposed; L97.521 Non-pressure chronic ulcer of other part of left foot limited to breakdown of skin; I87.2 Venous insufficiency (chronic) (peripheral); E11.22 Type 2 diabetes mellitus with diabetic chronic kidney disease; N18.30 Chronic kidney disease, stage 3 unspecified; I25.10 Atherosclerotic heart disease of native coronary artery without angina pectoris; E11.319 Type 2 diabetes mellitus with unspecified diabetic retinopathy without macular edema; I73.9 Peripheral vascular disease, unspecified; I89.0 Lymphedema, not elsewhere classified; K29.70 Gastritis, unspecified, without bleeding; I25.5 Ischemic cardiomyopathy; I12.9 Hypertensive chronic kidney disease with stage 1 through stage 4 chronic kidney disease, or unspecified chronic kidney disease | CPT/HCPCS: 99213 ==

== ENCOUNTER 2024-09-09 16:48 | Emergency (ER) | payer SELFPAY ==
[2024-09-09 16:56] VITALS: BP 191/95
--- NOTE | 2024-09-09 16:56 | ED.GENMED ---
ED Provider Triage
<Jose Raul Flores PA-C - Last Filed: 09/09/24 16:57>
-
Patient seen by provider in Triage?: Seen in Triage
Attestation: A medical screening examination has been initiated by a qualified medical provider. Based on the assessment performed at this time, it has been determined that an emergent medical condition may exist and the patient has been informed
that further medical evaluation and possible additional diagnostic testing may be needed.
HPI: 74-year-old female presenting the emergency department for evaluation of abdominal discomfort over the last 48 to 72 hours. Patient notes that she has a colostomy bag decreased output as well as inability to have a bowel movement since
Thursday. She notes that she feels as if she does have gas but is unable to go. Denies any fevers, nausea, vomiting. Currently appears uncomfortable. Labs ordered. Imaging deferred as patient may need CT imaging over an obstructive series.
GENERAL: Alert , in no apparent distress
EYE: No visual abnormalities.
NECK: Trachea midline
ENT: No visible abnormalities.
LUNGS: No acute respiratory distress
NEUROLOGICAL: Alert and oriented
SKIN: Skin intact. No visible changes.
MUSCULOSKELETAL: Moving extremities normally
PSYCH: Normal and appropriate interaction.
This is a medical evaluation conducted in person to initiate diagnostic evaluation and provide initial therapeutics. Please see further documentation by the treating clinician.
History of Present Illness
<Jose Raul Flores PA-C - Last Filed: 09/09/24 16:57>
General
Chief Complaint: Abdominal Symptoms
Time Seen by Provider: 09/09/24 19:53
<Heriberto Delgado DO - Last Filed: 09/09/24 22:24>
History of Present Illness
History of Present Illness:
TIME OF INITIAL ENCOUNTER: 8 PM
HPI: Patient presents due to concerns of decreased output from the colostomy bag. She describes an intermittent cramping feeling. She had abdominal pain while she was in the waiting room but currently denies abdominal pain. She does not have
nausea currently. She tells me that at times, she feels a little bit better after she urinates and the overall discomfort returns.
EXAM:
GENERAL: She appears generally weak and debilitated
HEENT: Moist oral mucosa
CARDIOVASCULAR: No murmurs, normal heart rate, regular rhythm, No chest wall tenderness
PULMONARY: No respiratory distress, breath sounds are clear and equal
ABDOMEN: Nearly empty colostomy bag noted in the central abdomen, soft with no peritoneal signs, mild diffuse abdominal tenderness
NEUROLOGIC: Fair strength all extremities, no coordination deficits
PSYCHIATRIC: Appropriate mental status, normal insight and judgement
EXTREMITIES: Nontender, no edema, moves all extremities equally
SKIN: No rash, no lesions
NUMBER AND COMPLEXITY OF PROBLEMS ADDRESSED AT THE ENCOUNTER
� Chronic conditions affecting care: CHF, A-fib on Eliquis, high blood pressure, CAD/coronary bypass, diabetes, obesity
� Acute Exacerbation and/or Progression of Chronic Illness: This is an acute problem
� Differential Diagnosis includes: Dehydration, ANDI, bowel obstruction
AMOUNT AND/OR COMPLEXITY OF DATA TO BE REVIEWED AND ANALYZED
� I performed an independent evaluation of and my interpretation is:
EKG:
CT: CT imaging shows no acute abnormality
X-rays:
Laboratory Studies: White count is 6.5, hemoglobin 11.5, creatinine 1.7, glucose 308, lipase normal,
Other:
� Review of other/old records: I reviewed records, creatinine currently is near baseline
� Clinical information was obtained by an independent historian: I spoke to son at bedside
� Prescriptions/Medications Considered but not given:
� Further testing considered but not performed:
RISK OF COMPLICATIONS AND/OR MORBIDITY OR MORTALITY OF PATIENT MANAGEMENT
� Social determinants of health affecting care: Lives at home
� Discussion with other providers: I spoke to IV nurse at bedside
� Escalation of care including admission/observation vs risk of discharge considered: Will plan to give IV fluids but she does have a history of a decreased ejection fraction we will just give 500 mL saline bolus. Will also
obtain noncontrast CT imaging.
ANY OTHER UPDATES:
8 PM: the patient is denying abdominal pain
9:40 PM: I evaluated the patient again although she does not feel well in general her workup is unremarkable. We considered placing a midline (nurses unable to place peripheral IV) however no clear indication that she absolutely needs IV access at
this time. I did prescribe the medication that she is normally on. She tells me she could not get into see her data coder operator and a primary care doctor. I did not refill her Lasix as she has renal insufficiency and I also decreased her Eliquis
dosing due to the renal insufficiency.
Past History
<Jose Raul Flores PA-C - Last Filed: 09/09/24 16:57>
Past History
ED Past Medical History: CAD, Cancer (Hodgkin's lymphoma 1988), CHF, HTN, Hypercholesterolemia and IDDM
ED Past Surgical History: Cardiac (Bypass surgery) and Orthopedic (Left great toe amputation)
Social History
Tobacco: Non-smoker
Alcohol: None
Drug: None
Living: with family
Employment: Not employed
Family History
Family History: Unable to obtain
Phy Exam
<Heriberto Delgado DO - Last Filed: 09/09/24 22:24>
Physical Exam
Physical Exam:
See HPI
Course
<Jose Raul Flores PA-C - Last Filed: 09/09/24 16:57>
Orders/Labs/Results
Orders:
Orders
09/09/24 17:05
Complete Blood Count/With Diff Urgent
Comprehensive Metabolic Panel Urgent
Lipase Urgent
09/09/24 19:57
CT Abd/pel Without Iv Or Oral Urgent
Comment:
Reason For Exam: decreased colostomy output
0.9% Sodium Chloride 500 ml [Nss] 500 ml IV BOLUS
09/09/24 21:00
Urinalysis Reflex To Culture Urgent
Date Specimen was Collected: 09/09/24
Time Specimen was Collected: 17:08
Abnormal Lab Results
09/09/24
17:05
RBC 4.19 L 10^6/uL
(4.20-5.40)
Hgb 11.5 L g/dL
(12.0-16.0)
Hct 35.3 L %
(37.0-47.0)
MCHC 32.6 L g/dL
(33.0-37.0)
Absolute Lymphs (auto) 0.7 L 10^3/uL
(1.2-3.4)
Neutrophils % 81.8 H %
(42.2-75.2)
Lymphocytes % 10.5 L %
(20.5-51.1)
BUN 24 H mg/dl
(7-17)
Creatinine 1.7 H mg/dL
(0.6-1.0)
Glucose 308 H mg/dl
(70-99)
Alkaline Phosphatase 150 H U/L
(38-126)
09/09/24 17:05
09/09/24 17:05
Vital Signs
Initial and Last Documented VS:
Initial Vital Signs
Temp Pulse Resp BP Pulse Ox
97.5 F 77 16 191/95 98
09/09/24 16:56 09/09/24 16:56 09/09/24 16:56 09/09/24 16:56 09/09/24 16:56
Last Documented Vital Signs
Temp Pulse Resp BP Pulse Ox
97.5 F 77 16 167/82 97
09/09/24 16:56 09/09/24 16:56 09/09/24 16:56 09/09/24 19:21 09/09/24 19:30
<Heriberto Delgado, DO - Last Filed: 09/09/24 22:24>
Orders/Labs/Results
Orders:
Orders
09/09/24 17:05
Complete Blood Count/With Diff Urgent
Comprehensive Metabolic Panel Urgent
Lipase Urgent
09/09/24 19:57
CT Abd/pel Without Iv Or Oral Urgent
Comment:
Reason For Exam: decreased colostomy output
0.9% Sodium Chloride 500 ml [Nss] 500 ml IV BOLUS
09/09/24 21:00
Urinalysis Reflex To Culture Urgent
Date Specimen was Collected: 09/09/24
Time Specimen was Collected: 17:08
Abnormal Lab Results
09/09/24
17:05
RBC 4.19 L 10^6/uL
(4.20-5.40)
Hgb 11.5 L g/dL
(12.0-16.0)
Hct 35.3 L %
(37.0-47.0)
MCHC 32.6 L g/dL
(33.0-37.0)
Absolute Lymphs (auto) 0.7 L 10^3/uL
(1.2-3.4)
Neutrophils % 81.8 H %
(42.2-75.2)
Lymphocytes % 10.5 L %
(20.5-51.1)
BUN 24 H mg/dl
(7-17)
Creatinine 1.7 H mg/dL
(0.6-1.0)
Glucose 308 H mg/dl
(70-99)
Alkaline Phosphatase 150 H U/L
(38-126)
09/09/24 17:05
09/09/24 17:05
Vital Signs
Initial and Last Documented VS:
Initial Vital Signs
Temp Pulse Resp BP Pulse Ox
97.5 F 77 16 191/95 98
09/09/24 16:56 09/09/24 16:56 09/09/24 16:56 09/09/24 16:56 09/09/24 16:56
Last Documented Vital Signs
Temp Pulse Resp BP Pulse Ox
97.5 F 77 16 167/82 97
09/09/24 16:56 09/09/24 16:56 09/09/24 16:56 09/09/24 19:21 09/09/24 19:30
<Heriberto Delgado DO - Last Filed: 09/09/24 22:24>
*Critical Care Note
Total Time (30-74mins, 75-104mins- exclusive of procedures): Not Applicable
ED Attending Note
<Jose Raul Flores PA-C - Last Filed: 09/09/24 16:57>
-
Portions of this chart may have been created with voice recognition software.� Occasional wrong word or��sound alike� substitutions may have occurred due to the inherent limitations of voice recognition software.
Discharge Plan
Departure
Patient Disposition: Home (Routine Discharge)
Date of Disposition: 09/09/24
Time of Disposition: 22:15
Patient with high blood pressure during this ER visit?: Yes
Discharge Problem:
Abdominal pain
Instructions: Abdominal Pain, BLOOD PRESSURE
Prescriptions:
New
atorvastatin 40 mg tablet
40 mg PO DAILY Qty: 30 0RF
Eliquis 2.5 mg tablet
2.5 mg PO BID Qty: 60 0RF
mirtazapine 7.5 mg tablet
7.5 mg PO HS Qty: 30 0RF
buspirone 5 mg tablet
5 mg PO BID Qty: 60 0RF
metoprolol succinate 50 mg tablet extended release 24 hr
50 mg PO ONCE Qty: 30 0RF
omeprazole 40 mg capsule,delayed release(DR/EC)
40 mg PO DAILY Qty: 30 0RF
insulin glargine [Lantus U-100 Insulin] 100 unit/mL solution
44 unit SC QPM Qty: 10 0RF
Novolin R Regular U100 Insulin 100 unit/mL solution
12 unit SC DIRECTED Qty: 10 0RF
No Action
metoprolol succinate 50 MG tablet extended release 24 hr
50 mg PO BID
atorvastatin [Lipitor] 40 mg Tablet
40 mg PO HS
buspirone 5 mg Tablet
5 mg PO BID
mirtazapine 7.5 mg Tablet
7.5 mg PO HS
Eliquis 5 MG tablet
5 mg PO BID
furosemide 80 mg tablet
80 mg PO DAILY
oxycodone 5 mg Tablet
5 mg PO Q4HPRN PRN (Reason: moderate pain) Qty: 20 0RF
insulin aspart U-100 [Novolog FlexPen U-100 Insulin] 100 unit/mL (3 mL) Insulin Pen
12 unit SC AC Qty: 15 0RF
(DME) pen needle, diabetic [Pentips] 32 gauge x 1/4' needle
See Rx Instructions .Route Qty: 100 0RF
Rx Instructions:
As directed
(DME) Accu-Chek Haylee Plus test strp Strip
See Rx Instructions .Route Qty: 100 0RF
Rx Instructions:
As directed
insulin glargine [Basaglar KwikPen U-100 Insulin] 100 unit/mL (3 mL) insulin pen
44 unit SC DAILY Qty: 15 0RF
Referrals:
NONE,* [Family Provider] -
Activity Restrictions/Additional Instructions:
I did not refill your furosemide. Follow-up your data coder operator. I decreased your Eliquis dosing due to the renal insufficiency. You must follow-up with your primary care doctor as well as your data coder operator. Return here if worse or any other
concerns.
Interventions
Interventions:
*Risk Screen - Suicide Last Done: 09/09/24 16:57
*Neglect/Abuse Screening Last Done: 09/09/24 16:57
ED- Fall Risk Assessment Last Done: 09/09/24 19:21
*ED COVID-19 Vaccine History Last Done: 09/09/24 19:21
HF-Zdnpmb-Lolsohnqyz Assessment Last Done: 09/09/24 19:19
Discharge Date and Time
Print Language: MOHAWK
[2024-09-09 17:18] LABS: % Basophils 0.3 % (0-2); % Eosinophils 0.6 % (0-6); % Immature Granulocytes 0.3 % (0-0.5); % Lymphocytes 10.5 % (20.5-51.1); % Monocytes 6.5 % (1.7-9.3); % Neutrophils 81.8 % (42.2-75.2); Absolute Lymphocytes 0.7 10^3/uL (1.2-3.4); Absolute Monocytes 0.4 10^3/uL (0.1-0.6); Absolute Neutrophils 5.3 10^3/uL (1.4-6.5); Hematocrit 35.3 % (37.0-47.0); Hemoglobin 11.5 g/dL (12.0-16.0); Mean Corp Hgb Conc. 32.6 g/dL (33.0-37.0); Mean Corpuscular Hgb 27.4 pg (27.0-31.0); Mean Corpuscular Volume 84.2 fL (81.0-99.0); Mean Platelet Volume 9.8 fL (7.4-10.4); Nucleated Red Blood Cells % 0 %; Platelet Count 166 10^3/uL (130-400); Red Blood Cell Count 4.19 10^6/uL (4.20-5.40); Red Cell Dist. Width 14.5 % (11.5-14.5); White Blood Cell Count 6.5 10^3/uL (4.8-10.8)
[2024-09-09 17:29] LABS: ALT (SGPT) 11 U/L (0-35); AST (SGOT) 18 U/L (14-36); Albumin 3.6 g/dl (3.5-5.0); Alkaline Phosphatase 150 U/L (38-126); Blood Urea Nitrogen 24 mg/dl (7-17); Calcium 9.5 mg/dl (8.4-10.2); Carbon Dioxide 24 mmol/L (22-30); Chloride 105 mmol/L (98-107); Glucose 308 mg/dl (70-99); Potassium 4.7 mmol/L (3.5-5.1); Sodium 138 mmol/L (135-145); Total Bilirubin 0.7 mg/dl (0.2-1.3); Total Protein 6.5 g/dl (6.3-8.2); eGFR 31.66
[2024-09-09 17:41] LABS: Lipase 89 U/L (23-300)
[2024-09-09 19:17] VITALS: BMI 28.4
[2024-09-09 19:21] VITALS: BP 167/82
== END 2024-09-09 22:40 | disposition home or self-care (01) ==
LOC: EMR 16:48
PROVIDERS: Physician Assistant Medical; EMERGENCY PHYSICIAN Emergency Medicine
DX: R10.9 Unspecified abdominal pain (principal); Z93.3 Colostomy status; I25.10 Atherosclerotic heart disease of native coronary artery without angina pectoris; I11.0 Hypertensive heart disease with heart failure; I50.9 Heart failure, unspecified; E78.00 Pure hypercholesterolemia, unspecified; E11.9 Type 2 diabetes mellitus without complications; Z85.71 Personal history of Hodgkin lymphoma
CPT/HCPCS: 99284; 74176; 80053; 83690; 85025

== ENCOUNTER → 2024-09-16 14:44 | Outpatient (REF) | payer MEDICARE, SELFPAY | LOC: WOUND 14:44 | PROVIDERS: ATTENDING PHYSICIAN Surgery | DX: L89.324 Pressure ulcer of left buttock, stage 4 (principal); L89.312 Pressure ulcer of right buttock, stage 2; L97.521 Non-pressure chronic ulcer of other part of left foot limited to breakdown of skin; I87.311 Chronic venous hypertension (idiopathic) with ulcer of right lower extremity; I25.10 Atherosclerotic heart disease of native coronary artery without angina pectoris; I87.2 Venous insufficiency (chronic) (peripheral); E11.22 Type 2 diabetes mellitus with diabetic chronic kidney disease; E11.319 Type 2 diabetes mellitus with unspecified diabetic retinopathy without macular edema; I73.9 Peripheral vascular disease, unspecified; I89.0 Lymphedema, not elsewhere classified; K29.70 Gastritis, unspecified, without bleeding; I25.5 Ischemic cardiomyopathy; N18.30 Chronic kidney disease, stage 3 unspecified; I12.9 Hypertensive chronic kidney disease with stage 1 through stage 4 chronic kidney disease, or unspecified chronic kidney disease | CPT/HCPCS: 99213 ==

== ENCOUNTER 2024-09-30 20:07 | Inpatient (IN) | payer MEDICARE, SELFPAY ==
[2024-09-30] VITALS (10 sets, daily range): BP systolic 122–183; BP diastolic 57–99; BMI 29.6
[2024-09-30 12:05] LABS: Glucose - Point of Care 245 mg/dl (70-99)
--- NOTE | 2024-09-30 13:26 | ED.GENMED ---
History of Present Illness
General
Chief Complaint: Change in Mental Status
Source: patient
Exam Limitations: none
Time Seen by Provider: 09/30/24 13:06
Nursing documentation reviewed up to this point in time: agreed with
History of Present Illness
History of Present Illness:
Patient is a 74-year-old female with past medical history of diabetes, CABG, permanent pacemaker paroxysmal A-fib on Eliquis hypertension anxiety diverticulitis with colostomy, chronic kidney disease stage III chronic systolic heart failure with
chronic bilateral edema who presents to the ER for evaluation. Patient reports her family doctor came to visit her today and she was confused. She reports that she was aware that she was having confusion and still feels confused. Son at bedside
reports patient still seems a little off but is better than she was earlier today. Patient denies any recent trauma she does complain of a right-sided headache. PT denies any recent illness , fever, chills. .
She does feel weak. She denies any black stools in her colostomy bag. She denies any nausea or vomiting.
She does live at home by herself and uses wheelchair..
Patient reports she is post be on Eliquis but is not taking it because she states when she was here in August a couple weeks ago she was told to stop it . In review of medical history when patient was here September 09 she was instructed to decrease
the dosage of her Lasix and Eliquis because of her kidney function not to stop it. In addition she has not been taking any of her insulin medications and is not sure if she is taking any of her medicines in general
Past History
Past History
ED Past Medical History: CAD, Cancer (Hodgkin's lymphoma 1988), CHF, HTN, Hypercholesterolemia and IDDM
ED Past Surgical History: Cardiac (Bypass surgery) and Orthopedic (Left great toe amputation)
Social History
Tobacco: Non-smoker
Alcohol: None
Drug: None
Living: with family
Employment: Not employed
Family History
Family History: Unable to obtain
Review of Systems
Review of Systems
Allergies reviewed?: Yes
Other source history: family
All Other Systems: ROS reviewed and negative except as documented in HPI and ROS
Constitutional: Reports fatigue; Denies fever or chills
Respiratory: Reports no symptoms
Cardiac: Reports no symptoms
ABD/GI: Reports no symptoms
: Reports no symptoms
Musculoskeletal: Reports no symptoms
Skin: Reports no symptoms
Neurological: Reports other (feels confused )
Psychiatric: Reports no symptoms
Phy Exam
General Physical Exam
General Presentation: no apparent distress
General age: appears stated age
General Skin: warm and dry
General Habitus: normal
General Mental: alert
General Hydration: appears well hydrated
Cardiovascular Exam
Cardiovascular Exam: regular rate/rhythm, no murmur and normal peripheral pulses
Pulmonary Exam
Pulmonary Exam: lungs clear and no respiratory distress
Gastrointestinal Exam
Gastrointestinal Exam: non tender, soft and other (Colostomy bag draining brown stool)
Neurological Exam
Neurological Exam: alert, oriented x3, no motor deficits and no sensory deficits
Musculoskeletal Exam
Musculoskeletal Exam: full ROM
Skin Exam
Skin Exam: normal color and warm/dry
Psychiatric Exam
Psychiatric Exam: normal mood/affect
Course
Orders/Labs/Results
Orders:
Orders
09/30/24 13:24
CT Head W/o Iv Contrast Urgent
Comment:
Reason For Exam: trauma
09/30/24 13:26
IV Insert/Care/Rem.- Treatment PRN
09/30/24 13:27
Electrocardiogram (*1) Stat
Reason for Study: Other
Other Reason for Exam: chest pain
Cardiac Monitoring- Treatment ONCE
EKG- Treatment ONCE
09/30/24 13:32
Complete Blood Count/With Diff Urgent
Comprehensive Metabolic Panel Urgent
09/30/24 14:41
Straight cath- Treatment ONCE
09/30/24 15:12
0.9% Sodium Chloride 500 ml [Nss] 500 ml IV BOLUS
09/30/24 15:20
Acetaminophen 1000MG/100Ml [Ofirmev] 1,000 mg in 100 ml IV ONCE
Acetaminophen IV Indication:: ED Narcotic Naive Pt-ONCE
09/30/24 15:23
COVID-19 Antigen Urgent
Source: Nasal Swab
Influenza A+B Rapid Molecular Urgent
SHEYLA Source: Nasal Swab
Specimen Description:
09/30/24 16:50
Urinalysis Reflex To Culture Urgent
Date Specimen was Collected: 09/30/24
Time Specimen was Collected: 16:49
Urine Microscopic Reflex Cult Urgent
Urine Culture Urgent
SHEYLA Source: U
Specimen Description:
Date Specimen was Collected: 09/30/24
Time Specimen was Collected: 16:49
09/30/24 17:11
Chest [CR Chest - 2 Views ] Urgent
Comment:
Reason For Exam: change in ms
09/30/24 18:56
CefTRIAXone [Rocephin] 1,000 mg IV NOW STA
Abnormal Lab Results
09/30/24 09/30/24 09/30/24
12:04 13:32 16:50
MCHC 32.4 L g/dL
(33.0-37.0)
RDW 15.2 H %
(11.5-14.5)
MPV 10.5 H fL
(7.4-10.4)
Abs Immat Gran (auto) 0.1 H 10^3/uL
(0-0.05)
Absolute Lymphs (auto) 0.6 L 10^3/uL
(1.2-3.4)
Immature Gran % 1.6 H %
(0-0.5)
Neutrophils % 80.7 H %
(42.2-75.2)
Lymphocytes % 9.7 L %
(20.5-51.1)
Chloride 108 H mmol/L
(98-107)
Carbon Dioxide 19 L mmol/L
(22-30)
BUN 30 H mg/dl
(7-17)
Creatinine 1.9 H mg/dL
(0.6-1.0)
Glucose 243 H mg/dl
(70-99)
Alkaline Phosphatase 137 H U/L
(38-126)
Urine Ketones 1+ A
(Negative)
Ur Occult Blood Reflex Trace A
(Negative)
Urine RBC 3-6 A /HPF
(0-2)
Urine Bacteria (Reflex) Moderate A
(Negative)
Urine Glucose 2+ A
(Negative)
Urine Albumin (Reflex) 3+ A
(Neg - Trace)
POC Glucose 245 H mg/dl
(70-99)
09/30/24 13:32
09/30/24 13:32
Vital Signs
Initial and Last Documented VS:
Initial Vital Signs
Temp Pulse Resp BP Pulse Ox
97.5 F 86 16 179/83 98
09/30/24 11:56 09/30/24 11:56 09/30/24 11:56 09/30/24 11:56 09/30/24 11:56
Last Documented Vital Signs
Temp Pulse Resp BP Pulse Ox
97.5 F 62 16 158/92 98
09/30/24 11:56 09/30/24 18:30 09/30/24 18:30 09/30/24 18:21 09/30/24 15:15
MDM/Problems Addressed
Differential Diagnosis Includes:
Not limited to infection, CVA, dehydration
MDM/Problems Addressed:
Patient is a 74-year-old female who presented to the ER for confusion. Patient presented to the ER awake alert no acute distress aware that she felt confused earlier today however no focal deficits , clear speech. She did complain of a headache.
She normally is prescribed Eliquis however has not been taking it. CT head negative. She denies any recent fever or chills. She does feel tired. She is afebrile with a normal white count hemoglobin stable at 12.6. Patient's renal function
increased however at baseline glucose elevated at 243 here in the ER. Patient was here several weeks ago and at that time was instructed to decrease Lasix and decreased Eliquis because of her renal function however she has simply stopped taking it
and thought she was told to do so. In addition she has not been taking her insulin on occasion because the pens did not come with needles. She was given fluids here in the ER tested for COVID and flu which were both negative. Her urine does show
moderate bacteria there is 0-2 white blood cells negative nitrates however patient feels very weak and not herself. will require admission. d/c w/ ED attending will admit and cover for possible UTI.
*Radiology
Radiology exam reviewed: radiology read reviewed
*Pulse Oximetry
Patient hypoxic: no
*EKG
Interpretation: abnormal
Heart Rate: 60
Rhythm: ventricular paced
Ischemia: no ischemia
*Critical Care Note
Total Time (30-74mins, 75-104mins- exclusive of procedures): Not Applicable
ED Attending Note
-
Portions of this chart may have been created with voice recognition software.� Occasional wrong word or��sound alike� substitutions may have occurred due to the inherent limitations of voice recognition software.
Discharge Plan
Departure
Patient Disposition: Home (Routine Discharge)
Date of Disposition: 09/30/24
Time of Disposition: 18:56
Admit to: Med/Surg
Admit to doctor: hospitalist
Patient with high blood pressure during this ER visit?: Yes
Condition: Fair
Covid-19: Not Applicable
Discharge Problem:
Weakness, Acute UTI, Acute hyperglycemia
Prescriptions:
No Action
metoprolol succinate 50 MG tablet extended release 24 hr
50 mg PO DAILY
atorvastatin [Lipitor] 40 mg Tablet
40 mg PO HS
buspirone 5 mg Tablet
5 mg PO BID
mirtazapine 7.5 mg Tablet
7.5 mg PO HS
Eliquis 2.5 mg tablet
2.5 mg PO BID Qty: 60 0RF
omeprazole 40 mg capsule,delayed release(DR/EC)
40 mg PO DAILY Qty: 30 0RF
acetaminophen [Tylenol Extra Strength] 500 mg Tablet
1,000 mg PO Q6HPRN PRN (Reason: mild pain)
ascorbic acid (vitamin C) [Vitamin C] 500 mg Tablet
500 mg PO DAILY
insulin glargine-yfgn 100 unit/mL Solution
34 unit SC QPM
Novolin R Regular U100 Insulin 100 unit/mL solution
8 unit SC TID
Referrals:
NONE,* [Family Provider] -
Interventions
Interventions:
*Risk Screen - Suicide Last Done: 09/30/24 13:00
*General Assessment Last Done: 09/30/24 13:00
*Neglect/Abuse Screening Last Done: 09/30/24 13:00
ED- Fall Risk Assessment Last Done: 09/30/24 15:18
*ED COVID-19 Vaccine History Last Done: 09/30/24 15:16
ED- Neurological Assessment Last Done: 09/30/24 14:00
ED Swallowing Screen Last Done: 09/30/24 15:17
Discharge Date and Time
Print Language: INDONESIAN
[2024-09-30 13:41] LABS: % Basophils 0.5 % (0-2); % Eosinophils 1.3 % (0-6); % Immature Granulocytes 1.6 % (0-0.5); % Lymphocytes 9.7 % (20.5-51.1); % Monocytes 6.2 % (1.7-9.3); % Neutrophils 80.7 % (42.2-75.2); Absolute Eosinophils 0.1 10^3/uL (0-0.7); Absolute Immature Granulocytes 0.1 10^3/uL (0-0.05); Absolute Lymphocytes 0.6 10^3/uL (1.2-3.4); Absolute Monocytes 0.4 10^3/uL (0.1-0.6); Absolute Neutrophils 5.1 10^3/uL (1.4-6.5); Hematocrit 38.9 % (37.0-47.0); Hemoglobin 12.6 g/dL (12.0-16.0); Mean Corp Hgb Conc. 32.4 g/dL (33.0-37.0); Mean Corpuscular Hgb 27.7 pg (27.0-31.0); Mean Corpuscular Volume 85.5 fL (81.0-99.0); Mean Platelet Volume 10.5 fL (7.4-10.4); Nucleated Red Blood Cells % 0 %; Platelet Count 148 10^3/uL (130-400); Red Blood Cell Count 4.55 10^6/uL (4.20-5.40); Red Cell Dist. Width 15.2 % (11.5-14.5); White Blood Cell Count 6.3 10^3/uL (4.8-10.8)
[2024-09-30 13:59] LABS: ALT (SGPT) 13 U/L (0-35); AST (SGOT) 28 U/L (14-36); Albumin 3.5 g/dl (3.5-5.0); Alkaline Phosphatase 137 U/L (38-126); Blood Urea Nitrogen 30 mg/dl (7-17); Calcium 9.1 mg/dl (8.4-10.2); Carbon Dioxide 19 mmol/L (22-30); Chloride 108 mmol/L (98-107); Glucose 243 mg/dl (70-99); Potassium 5.1 mmol/L (3.5-5.1); Sodium 137 mmol/L (135-145); Total Bilirubin 0.7 mg/dl (0.2-1.3); Total Protein 6.6 g/dl (6.3-8.2); eGFR 27.71
[2024-09-30] MEDS: NSS 500 IV (15:14)
[2024-09-30] MEDS: OFIRMEV 100 IV (15:33)
[2024-09-30 15:53] LABS: COVID-19 Antigen Negative (Negative)
[2024-09-30 17:01] LABS: Urine Albumin 3+ (Neg - Trace); Urine Bilirubin Negative (Negative); Urine Character Clear (Clear); Urine Color Yellow; Urine Glucose 2+ (Negative); Urine Ketone 1+ (Negative); Urine Leukocyte Negative (Negative); Urine Nitrite Negative (Negative); Urine Occult Blood Trace (Negative); Urine Urobilinogen Negative (Neg - 1+)
[2024-09-30 17:07] LABS: Urine Bacteria Moderate (Negative); Urine White Cell 0-2 /HPF (0-5)
--- NOTE | 2024-09-30 17:32 | PHANOTE ---
med rec tech(09/30/24)-Due to patient's confusion, unable to obtain accurate medication list from her. Called son, he does not know her medications. Compiled list through medical record from visit in August, [facility] record from 09/16/24, and Doctor
[facility] records.
[2024-09-30] MEDS: ROCEPHIN 1000 MG IV (19:23)
--- NOTE | 2024-09-30 19:57 | HPS.HSE ---
Family Physician
-
Family Physician: * NONE
Chief Complaint
-
Confusion / Weakness
History of Present Illness
Patient is a 74y F with PMH significant for A-Fib / Flutter, CHF, CKD and DM-II who presents to ED complaining of confusion and weakness. Patient states that she has been globally weak at home for some time. She feels that she was confused
today - though she lives alone and cannot be sure when these symptoms / changes started. She was apparently visited at home by her PCP today who appreciated these changes. Patient notes that she stopped taking her Lasix about 3-4 weeks ago as it
caused her to be incontinent of urine. She stopped all of her medications about 2 weeks ago including her insulin.
Patient reports eating perhaps one meal daily and drinking one bottle of water. She states that she urinates about once per day.
She has liquid, 'chocolate milk' stools that are non-bloody. Patient was seen in the ED here on 09/09 of abdominal pain - but denies any such symptoms at present.
She denies sore throat, cough, chest pain, dyspnea, fevers / chills, N/V or dysuria.
Medical History
Past Medical History
Past Medical History: Reports Other
Additional Past Medical History:
Paroxysmal A-Fib / Flutter
Chronic HFrEF (30-35%)
ASCVD
CKD III
DM-II
Anemia of Chronic Disease
Charcot Foot
Diverticular Disease
Hypertension
Sacral / Ischial Wounds
Chronic Lymphedema
Past Surgical History: Reports Other
Additional Past Surgical History:
PPM Placement
CABG x 3
Left Ankle Fusion
Left Great Toe Amputation
Ex Lap / Sigmoid Resection / End Colostomy
Cholecystectomy
Social History
Tobacco: Non-smoker
Alcohol: None
Drug: None
Living: Alone
Family History
Family History: Not pertinent
Allergies / Home Medications
Allergies reflects when Allergies were last updated in [facility].
Home Medications with original date entered in [facility]
Allergy/Medication List:
Allergies
Allergy/AdvReac Type Severity Reaction Status Date / Time
erythromycin base Allergy Unknown Verified 12/29/23 12:45
Iodinated Contrast Media Allergy Unknown Verified 12/29/23 12:45
[Iodinated Contrast Media -
IV Dye]
prednisone Allergy Unknown Verified 12/29/23 12:45
sulfamethoxazole Allergy Unknown Verified 12/29/23 12:45
[From Bactrim]
trimethoprim [From Bactrim] Allergy Unknown Verified 12/29/23 12:45
vancomycin Allergy Itching Verified 12/29/23 12:45
AND RED
SCALP
Home Medications
metoprolol succinate 50 mg tablet,extended release 24 hr 50 mg PO DAILY Heart disease/condition 12/03/20
atorvastatin 40 mg tablet (Lipitor) 40 mg PO HS High cholesterol 02/18/23
buspirone 5 mg tablet 5 mg PO BID Mental Health/Anxiety 02/18/23
mirtazapine 7.5 mg tablet 7.5 mg PO HS Mental Health/Anxiety 02/18/23
apixaban 2.5 mg tablet (Eliquis) 2.5 mg PO BID #60 tabs 09/09/24
omeprazole 40 mg capsule,delayed release 40 mg PO DAILY #30 caps 09/09/24
acetaminophen 500 mg tablet (Tylenol Extra Strength) 1,000 mg PO Q6HPRN PRN mild pain 09/30/24
ascorbic acid (vitamin C) 500 mg tablet (Vitamin C) 500 mg PO DAILY 09/30/24
insulin glargine-yfgn 100 unit/mL subcutaneous solution 34 unit SC QPM 09/30/24
insulin regular human 100 unit/mL injection solution (Novolin R Regular U-100 Insulin) 8 unit SC TID 09/30/24
Review of Systems
-
History Source: Patient
A 12 point ROS was completed and negative except as noted: Yes
Constitutional: Reports Fatigue; Denies Fever or Chills
EENT: Denies Sore Throat
Respiratory: Denies Cough or Trouble Breathing
Cardiac: Denies Chest Pain or Palpitations
Abdomen/GI: Reports Diarrhea and Anorexia; Denies Abdominal Pain, Nausea, Vomiting, Constipated, Bloody Stools or Black Stools
: Denies Dysuria, Frequency, Flank Pain, Urgency or Bleeding
Musculoskeletal: Reports Edema; Denies Joint Pain
Skin: Reports Other (Wounds / Buttocks)
Neurological: Reports Weakness; Denies Dizzy or Headache
Psych: Denies Depression or Anxiety
Physical Exam
Vital Signs
Vital Signs
Temp Pulse Resp BP Pulse Ox
97.5 F 62 16 158/92 98
09/30/24 11:56 09/30/24 18:30 09/30/24 18:30 09/30/24 18:21 09/30/24 15:15
Physical Exam
General: Other (Chronically ill-appearing 74y F in no acute distress.)
HEENT: Other (Dry MM. Neck supple. No JVD or HJR.)
Respiratory: Other (Diffuse rales bilaterally. No wheezes / rhonchi.)
Cardiac: S1/S2 and Regular Rhythm; No Murmur
GI: Soft, Non Tender, Non Distended, Normal Bowel Sounds and Other (LLQ ostomy intact with brown liquid stool in device. No tenderness, erythema, etc.)
Musculoskeletal: Other (3+ pitting edema b/l LE - L > R. Blister over lateral aspect of the distal RLE.)
Skin: Other (Open wound over the L buttocks / ischium area without bleeding, discharge or surrounding erythema.)
Neuro: AO x 3 and Nonfocal/grossly intact
Laboratory Results
-
09/30/24 13:32
09/30/24 13:32
Laboratory Results
Total Bilirubin 0.7 mg/dl (0.2-1.3) 09/30/24 13:32
AST 28 U/L (14-36) 09/30/24 13:32
ALT 13 U/L (0-35) 09/30/24 13:32
Alkaline Phosphatase 137 U/L (38-126) H 09/30/24 13:32
Impression/Plan
-
A/P: Patient is a 74y F with PMH significant for ASCVD, CHF, CKD and DM-II who presents to ED for evaluation of confusion and weakness.
Acute TME
- Admit for further evaluation and treatment.
- No clear trigger for any acute change in mental status appreciated.
- Patient is oriented x 3 at present.
- No evidence of any acute infectious process.
- CT head was unremarkable in the ED.
- Patient notes that she has been off of all of her prescribed medications for the past 2 weeks at least.
- Restart some meds now.
- Follow for any clinical changes.
ASCVD
Chronic HFrEF
- Patient has LE edema, but in general appears to be volume depleted with dry MM and poor oral intake for undetermined amount of time.
- Continue to hold diuretic (patient states she has not taken Lasix in about 4 weeks).
- IVF overnight and follow for clinical and labs changes / improvements.
- Follow I/Os, daily weights, etc.
- Continue / restart Eliquis for CAD and A-Fib.
- Continue / restart metoprolol.
CKD
Non-Gapped Metabolic Acidosis
- Stable. Renal function is at / near known baseline.
- Follow for changes with IVFs as noted above.
- Consider addition of PO bicarbonate replacement if acidosis persists.
Paroxysmal A-Fib / Flutter
History of Heart Block s/p PPM
- Stable. Currently in A-flutter with V-paced rhythm.
- Restart metoprolol and Eliquis as noted above (renally dosed).
- Monitor on telemetry.
DM-II
- Stable. Moderate hyperglycemia but no anion gap acidosis to suggest DKA, etc.
- Restart basal : bolus insulin regimen and adjust as needed for adequate control.
- SSI coverage as needed for now.
- Update A1C.
Skin Breakdown
- Patient with wounds on the sacrum / ischium.
- Patient has multiple scheduled visits with Wound Care here - but it does not appear that she has actually attended any of them?
- Wound Care eval for recommendations.
Anxiety / Depression
- Hold sedating meds acutely given reported confusion.
- Restart mirtazapine if needed for sleep / mood / etc.
Ostomy Status
- No tenderness or other concerning findings on exam.
- Had CT done which was also unremarkable.
- Check stool studies given reports of diarrhea.
- Routine ostomy care.
DVT Prophylaxis: On Eliquis
Code Status: DNR
[2024-09-30 22:20] LABS: Glucose - Point of Care 227 mg/dl (70-99)
[2024-09-30 23:03] LABS: TSH Reflex To Free T4 2.61 uIU/ml (0.47-4.68)
[2024-09-30] MEDS: ELIQUIS 2.5 MG PO (23:07)
[2024-09-30] MEDS: NSS 1000 IV (23:08)
[2024-09-30] MEDS: LIPITOR 40 MG PO (23:08)
[2024-09-30] MEDS: LANTUS 0.2 UNITS SC (23:09)
--- NOTE | 2024-09-30 23:50 | PTCARENOTE ---
Pt received from ED via stretcher. Pulled over x3 without incident (pt refusing to get up). AAOx3, confused conversation at times. Telemetry = !00% V paced. Oriented to surroundings and plan of care discussed. Admission and assessment
completed, pt somewhat poor historian, laughing inappropriately at times. Neuro check WNL. L ischium with ? healing stage 4, measured and dressed. Bilateral LE reddened with serous filled blisters - covered with silicone border foams. Colostomy
intact - cannot recall when appliance last changed, states 'it's fine'. WC at baseline. #22 LH w/NSS at 80 mL/hr infusing w/o complication. Bed alarm active for safety. Call castanon within reach.
[2024-10-01 03:22] VITALS: BP 119/52
[2024-10-01 06:00] VITALS: BMI 29.1
[2024-10-01 07:10] VITALS: BP 149/59
[2024-10-01 07:16] LABS: Hematocrit 32.2 % (37.0-47.0); Hemoglobin 10.5 g/dL (12.0-16.0); Mean Corp Hgb Conc. 32.6 g/dL (33.0-37.0); Mean Corpuscular Hgb 28.6 pg (27.0-31.0); Mean Corpuscular Volume 87.7 fL (81.0-99.0); Mean Platelet Volume 10.5 fL (7.4-10.4); Platelet Count 124 10^3/uL (130-400); Red Blood Cell Count 3.67 10^6/uL (4.20-5.40); Red Cell Dist. Width 14.8 % (11.5-14.5); White Blood Cell Count 3.7 10^3/uL (4.8-10.8)
--- NOTE | 2024-10-01 07:40 | W.PN.HOSP.TC ---
Today's Communication/Plan
-
daily weights I/O
IVF completed monitor off
PT/OT
wound care
ostomy care
Glycemic control
Assessment / Plan
Assessment / Plan
Physical Exam
General: no acute distress appears comfortable at this time.
HEENT: moist MM. Neck supple. No JVD
Respiratory: Clear to auscultation b/l no wheezes or crackles
Cardiac: S1/S2 and Regular Rhythm; No Murmur
GI: Soft, Non Tender, Non Distended, Normal Bowel Sounds, LLQ ostomy intact with brown liquid stool in device. No tenderness, erythema
Musculoskeletal: +2 pitting edema b/l LE - L > R. Blister over lateral aspect of the distal RLE
Skin: Open wound over the L buttocks / ischium area without bleeding, discharge or surrounding erythema
Neuro: AO x 3 conversant coherent
74y F with PMH significant for A-Fib / Flutter, CHF, CKD and DM-II who presents to ED c/o confusion and weakness. Reported globally weak at home for some time. Recently visited at home by her PCP who expressed concerns regarding confusion.
Patient notes that ran out of Lasix about 3-4 weeks and the rest of her medications about 2 weeks ago including her insulin. Reported eating perhaps one meal daily and drinking one bottle of water. She states that she urinates about once per day.
She has liquid, 'chocolate milk' stools that are non-bloody. Patient was seen in the ED here on 09/09 of abdominal pain - but denies any such symptoms at present.
Denied sore throat, cough, chest pain, dyspnea, fevers / chills, N/V or dysuria.
A/P: Patient is a 74y F with PMH significant for ASCVD, CHF, CKD and DM-II who presents to ED for evaluation of confusion and weakness.
Acute TME resolving/resolved
- AOx3 at this time
- CT head noted no acute abn's
- Patient notes that she has been off of all of her prescribed medications for the past 2 weeks at least.
- home meds restarted
CXR appreciated small right loculated pleural effusion and trace left pleural effusion w/ associate atelectasis
-otherwise stable respiratory status on room air
-incentive spirometer
ASCVD
Chronic HFrEF
- IVF support completed, hold off on diuresis for now
- Follow I/Os, daily weights, etc.
- Continue Eliquis for CAD and A-Fib.
- Continue metoprolol.
Chronic Lower Ext Lymphedema
-venous duplex appreciated neg for DVT
CKD
Non-Gapped Metabolic Acidosis resolved
- Stable. Renal function is at / near known baseline.
- cont to monitor
Paroxysmal A-Fib / Flutter
History of Heart Block s/p PPM
- Stable
- cont metoprolol and Eliquis as noted above (renally dosed).
- Monitor on telemetry.
DM-II
- Stable. Moderate hyperglycemia but no anion gap acidosis to suggest DKA, etc.
- Restart basal : bolus insulin regimen and adjust as needed for adequate control.
- SSI coverage as needed for now.
- A1C. appreciated 10.8 improved from prior 15.03 Dec 2023
Skin Breakdown
- Patient with wounds on the sacrum / ischium.
- Wound Care consult requested
-cont wound care
Anxiety / Depression
- mirtazapine resumed
-buspirone remains on hold for now possible polypharmacy.
Ostomy d/t diverticulitis 10 years ago
- No tenderness or other concerning findings on exam.
- Had CT done which was also unremarkable.
- follow up stool studies
- Routine ostomy care.
Wheelchair bound since ostomy as per pt
PT/OT eval
DVT Prophylaxis: On Eliquis
Code Status: DNR
Discussed with patient and patient's son Jseus
I spent a total of 50 minutes with the patient or on the floor. More than 50% of this time involved counseling and coordination of care.
Anticipated Discharge: 24 - 48 hours
Subjective/Interval History
-
Date of Service: October 01, 2024
Seen and examined at bedside in no acute distress resting comfortably in bed. Reports overall improvement in symptoms. Notes headache but otherwise reports significant improvement since admission.
Objective Data
-
Labs:
Laboratory Results
10/01/24
06:52
WBC 3.7 L
Hgb 10.5 L
Hct 32.2 L
Plt Count 124 L
Sodium Pending
Potassium Pending
Chloride Pending
Carbon Dioxide Pending
BUN Pending
Creatinine Pending
Glucose Pending
Calcium Pending
Vital Signs:
Vital Signs
Temp Pulse Resp BP Pulse Ox
97.6 F 61 20 119/52 98
10/01/24 03:22 10/01/24 03:22 10/01/24 03:22 10/01/24 03:22 10/01/24 03:22
I&O
09/30/24 10/01/24 10/02/24
06:59 06:59 05:59
Intake Total 470 / 470
Balance 470 / 470
[2024-10-01 08:19] LABS: Blood Urea Nitrogen 31 mg/dl (7-17); Calcium 8.4 mg/dl (8.4-10.2); Carbon Dioxide 23 mmol/L (22-30); Chloride 111 mmol/L (98-107); Estimated Creatinine Clearance 25 ml/min; Glucose 120 mg/dl (70-99); Sodium 140 mmol/L (135-145); eGFR 26.05
[2024-10-01 08:20] LABS: Glucose - Point of Care 112 mg/dl (70-99)
[2024-10-01 08:35] LABS: Glycohemoglobin (HgbA1c) 10.8 % (4.0-5.6)
[2024-10-01] MEDS: NOVOLOG FLEXPEN-MODERATE RESISTANCE SC ×2 (09:54→12:20)
[2024-10-01] MEDS: TOPROL XL 50 MG PO (09:54)
[2024-10-01] MEDS: ELIQUIS 2.5 MG PO ×2 (09:54→20:31)
[2024-10-01] MEDS: NSS IV (10:44)
[2024-10-01 12:17] LABS: Glucose - Point of Care 86 mg/dl (70-99)
[2024-10-01] MEDS: TYLENOL 1000 MG PO (12:22)
[2024-10-01 15:50] VITALS: BP 148/61
--- NOTE | 2024-10-01 16:14 | CM ---
Initial assessment completed with pt.
Pt lives in a split level home with a basement level access with no steps to enter.
Pt is wheelchair bound and nonambulatory but is able to complete her ADLs and transfers independently.
Pt has a colostomy that she independently manages ordering supplies and changing.
Pt has a hospital bed but chooses to sleep in the recliner.
Pt has used [facility] and has been to SNF at [facility], [facility] [place]
PCP; Pt uses [facility]; [facility]
Pt unsure of what her needs are going to be and would like to re-approach dc needs closer to time of dc.
[2024-10-01 16:49] LABS: Glucose - Point of Care 243 mg/dl (70-99)
[2024-10-01] MEDS: NOVOLOG FLEXPEN-MODERATE RESISTANCE 3 UNITS SC (17:19)
[2024-10-01] MEDS: LANTUS 0.2 UNITS SC (17:28)
[2024-10-01 19:21] VITALS: BP 136/58
[2024-10-01 22:44] LABS: Glucose - Point of Care 185 mg/dl (70-99)
[2024-10-01] MEDS: LIPITOR 40 MG PO (23:17)
[2024-10-01] MEDS: REMERON 7.5 MG PO (23:17)
[2024-10-01 23:27] VITALS: BP 145/63
[2024-10-01 23:29] VITALS: BP 140/60; BP 145/63; PULSE 61; PULSE 62
[2024-10-02 03:08] VITALS: BP 150/63
[2024-10-02 06:00] VITALS: BMI 29.5
--- NOTE | 2024-10-02 06:39 | W.PN.HOSP.TC ---
Addendum entered and electronically signed by Festus Cantor MD 10/02/24 10:05:
discussed with patient and patient's son Jesus
Original Note:
Today's Communication/Plan
-
trial diuresis Lasix 40 mg daily
daily weights I/O
monitor renal function
Nephro Cardio eval
PT/OT
Lantus dose reduced d/t hypoglcyemia
home Buspirone resumed
Assessment / Plan
Assessment / Plan
Physical Exam
General: no acute distress appears comfortable at this time.
HEENT: moist MM. Neck supple. No JVD
Respiratory: Clear to auscultation b/l no wheezes or crackles
Cardiac: S1/S2 and Regular Rhythm; No Murmur
GI: Soft, Non Tender, Non Distended, Normal Bowel Sounds, LLQ ostomy intact with brown liquid stool in device. No tenderness, erythema
Musculoskeletal: +2 pitting edema b/l LE - L > R. Blister over lateral aspect of the distal RLE
Skin: Open wound over the L buttocks / ischium area without bleeding, discharge or surrounding erythema
Neuro: AO x 3 conversant coherent
74y F with PMH significant for A-Fib / Flutter, CHF, CKD and DM-II who presents to ED c/o confusion and weakness. Reported globally weak at home for some time. Recently visited at home by her PCP who expressed concerns regarding confusion.
Patient notes that ran out of Lasix about 3-4 weeks and the rest of her medications about 2 weeks ago including her insulin. Reported eating perhaps one meal daily and drinking one bottle of water. She states that she urinates about once per day.
She has liquid, 'chocolate milk' stools that are non-bloody. Patient was seen in the ED here on 09/09 of abdominal pain - but denies any such symptoms at present.
Denied sore throat, cough, chest pain, dyspnea, fevers / chills, N/V or dysuria.
A/P: Patient is a 74y F with PMH significant for ASCVD, CHF, CKD and DM-II who presents to ED for evaluation of confusion and weakness.
Acute TME resolving/resolved
- AOx3 at this time
- CT head noted no acute abn's
- Patient notes that she has been off of all of her prescribed medications for the past 2 weeks at least (ran out of medications per pt)
- home meds restarted
CXR appreciated small right loculated pleural effusion and trace left pleural effusion w/ associate atelectasis
-otherwise stable respiratory status on room air
-incentive spirometer
CAD CABG
Chronic HFrEF
- IVF support completed, hold off on diuresis for now
- Follow I/Os, daily weights, etc.
- Continue Eliquis for CAD and A-Fib.
- Continue metoprolol.
-Lasix resumed at 40 mg daily for now
-Cardio eval requested
-ECHO pending
Chronic Lower Ext Lymphedema
-venous duplex appreciated neg for DVT
ANDI vs CKD
Non-Gapped Metabolic Acidosis resolved
- Cr 2.0 possible baseline
-Question possible cardiorenal syndrome, monitor renal function with restart Lasix as above
-Nephro eval requested
Paroxysmal A-Fib / Flutter
History of Heart Block s/p PPM
- Stable
- cont metoprolol and Eliquis as noted above (renally dosed).
- Monitor on telemetry.
DM-II
- Stable. Moderate hyperglycemia but no anion gap acidosis to suggest DKA, etc.
- Restart basal : bolus insulin regimen and adjust as needed for adequate control.
- SSI coverage as needed for now.
- A1C. appreciated 10.8 improved from prior 15.03 Dec 2023
-Lantus reduced to 10 units d/t hypoglycemia in morning
Skin Breakdown
- Patient with wounds on the sacrum / ischium.
- Wound Care consult requested
-cont wound care
Anxiety / Depression
- home buspirone mirtazapine resumed
Ostomy d/t diverticulitis 10 years ago
- No tenderness or other concerning findings on exam.
- Had CT done which was also unremarkable.
- follow up stool studies
- Routine ostomy care.
Wheelchair bound since ostomy as per pt
PT/OT eval
#Hodgkin's lymphoma 1988
DVT Prophylaxis: On Eliquis
Code Status: DNR
Discussed with patient and patient's son Jesus
I spent a total of 40 minutes with the patient or on the floor. More than 50% of this time involved counseling and coordination of care.
Anticipated Discharge: 24 - 48 hours
Subjective/Interval History
-
Date of Service: October 02, 2024
No acute distress appears comfortable at this time though reports persistent general malaise. Tolerated diet. Endorses constipation but does not want laxatives at this time. Made aware laxatives available prn should she change her mind. Denies
abd pain nausea.
Objective Data
-
Labs:
Laboratory Results
10/02/24
06:10
WBC Pending
Hgb Pending
Hct Pending
Plt Count Pending
Sodium Pending
Potassium Pending
Chloride Pending
Carbon Dioxide Pending
BUN Pending
Creatinine Pending
Glucose Pending
Calcium Pending
Vital Signs:
Vital Signs
Temp Pulse Resp BP Pulse Ox
98.5 F 61 16 150/63 98
10/02/24 03:08 10/02/24 03:08 10/02/24 03:08 10/02/24 03:08 10/02/24 03:08
I&O
09/30/24 10/01/24 10/02/24
06:59 06:59 05:59
Intake Total 470 / 470 720 / 720
Balance 470 / 198 429 / 310
[2024-10-02 06:59] LABS: Hematocrit 33.1 % (37.0-47.0); Hemoglobin 10.8 g/dL (12.0-16.0); Mean Corp Hgb Conc. 32.6 g/dL (33.0-37.0); Mean Corpuscular Hgb 27.6 pg (27.0-31.0); Mean Corpuscular Volume 84.7 fL (81.0-99.0); Mean Platelet Volume 10.4 fL (7.4-10.4); Platelet Count 148 10^3/uL (130-400); Red Blood Cell Count 3.91 10^6/uL (4.20-5.40); Red Cell Dist. Width 15.2 % (11.5-14.5); White Blood Cell Count 5.4 10^3/uL (4.8-10.8)
[2024-10-02 07:00] VITALS: BP 114/63
[2024-10-02 07:23] LABS: Blood Urea Nitrogen 35 mg/dl (7-17); Calcium 8.6 mg/dl (8.4-10.2); Carbon Dioxide 22 mmol/L (22-30); Chloride 112 mmol/L (98-107); Estimated Creatinine Clearance 24 ml/min; Glucose 49 mg/dl (70-99); Magnesium 2.3 mg/dl (1.6-2.3); Phosphorus 3.8 mg/dl (2.5-4.5); Potassium 3.9 mmol/L (3.5-5.1); Sodium 141 mmol/L (135-145); eGFR 24.57
--- NOTE | 2024-10-02 07:25 | PTCARENOTE ---
Lab called with CV for pt's glucose of 49. Hypoglycemic protocol followed. 4oz OJ given. Rechecked in 15 min. Blood sugar now at 53, OJ given again. Dextrose 50% 25ml given and will recheck blood sugar. made aware. Pt alert and responsive.
[2024-10-02 07:44] LABS: Glucose - Point of Care 53 mg/dl (70-99)
[2024-10-02] MEDS: DEXTROSE 50% SYRINGE 12.5 GRAMS IV (07:45)
[2024-10-02] MEDS: FLUSH (NSS) 2 FLUSH IV ×2 (07:46→17:00)
[2024-10-02 08:07] LABS: Glucose - Point of Care 105 mg/dl (70-99)
[2024-10-02] MEDS: NOVOLOG FLEXPEN-MODERATE RESISTANCE SC ×2 (08:40→10:34)
[2024-10-02] MEDS: PROTONIX 40 MG PO (08:41)
[2024-10-02] MEDS: ELIQUIS 2.5 MG PO (08:41)
[2024-10-02] MEDS: TOPROL XL 50 MG PO (08:41)
[2024-10-02] MEDS: BUSPAR 5 MG PO ×2 (08:45→21:14)
[2024-10-02 10:14] LABS: Glucose - Point of Care 142 mg/dl (70-99)
[2024-10-02 10:15] LABS: NT-proBNP 24700 pg/ml
[2024-10-02] MEDS: LASIX 40 MG PO (10:31)
[2024-10-02 11:00] VITALS: BP 155/72
--- NOTE | 2024-10-02 11:25 | W.CON.NEPH ---
Consultation
-
Date/Time Consultation Requested: 10/02/24 1000
Date/Time Consultation Performed: 10/02/24 1100
Requesting Provider: Dr. Cantor
Performing Provider: Dr Tran
Reason for Consultation: ANDI
Medical History
-
Chief Complaint: confusion
History of Present Illness:
This is a 74-year-old female who has diabetes mellitus type 2 which is typically uncontrolled on insulin therapy, patient atrial fibrillation on anticoagulation with Eliquis, hyperlipidemia on statin therapy. She has chronic kidney disease stage IV
baseline creatinine typically around 1.8 at least as of the end of last year. She also has ischemic cardiomyopathy with ejection fraction of 30% though not on chronic diuretic therapy. She does have some baseline lymphedema though typically mild.
In the last 4 months she says that she has lost about 30 pounds because of decreased appetite. More recently she had developed some confusion and was brought to the emergency room. She was noted to have acute kidney injury with a creatinine of 2.1
for which we are asked to assist with management of. She notes that she had been out of her medications for about 3 to 4 weeks time. She also believes her lower EXTR edema is slightly worse.
Past Medical History
CKD 4, heart failure reduced ejection fraction 30%, coronary artery disease/CABG, paroxysmal atrial fibrillation, lymphedema, non-Hodgkin's lymphoma, Diazemuls type II, ileostomy, diverticulitis, hypertension, GERD, hyperlipidemia, obesity,
pulmonary hypertension, Charcot foot, left ankle fusion, left great toe amputation, cholecystectomy, pacemaker
Social History
Tobacco: Former Smoker
Alcohol: None
Family History
Family History: Not Pertinent
Allergies / Home Medications
Allergy/AdvReac Type Severity Reaction Status Date / Time
erythromycin base Allergy Unknown Verified 12/29/23 12:45
Iodinated Contrast Media Allergy Unknown Verified 12/29/23 12:45
[Iodinated Contrast Media -
IV Dye]
prednisone Allergy Unknown Verified 12/29/23 12:45
sulfamethoxazole Allergy Unknown Verified 12/29/23 12:45
[From Bactrim]
trimethoprim [From Bactrim] Allergy Unknown Verified 12/29/23 12:45
vancomycin Allergy Itching Verified 12/29/23 12:45
AND RED
SCALP
�Medication �Instructions �Recorded �Confirmed �Type
metoprolol succinate 50 mg 50 mg PO DAILY Heart 12/03/20 09/30/24 History
tablet,extended release 24 hr disease/condition
atorvastatin 40 mg tablet (Lipitor) 40 mg PO HS High cholesterol 02/18/23 09/30/24 History
buspirone 5 mg tablet 5 mg PO BID Mental Health/Anxiety 02/18/23 09/30/24 History
mirtazapine 7.5 mg tablet 7.5 mg PO HS Mental Health/Anxiety 02/18/23 09/30/24 History
apixaban 2.5 mg tablet (Eliquis) 2.5 mg PO BID #60 tabs 09/09/24 09/30/24 Rx
omeprazole 40 mg capsule,delayed 40 mg PO DAILY #30 caps 09/09/24 09/30/24 Rx
release
acetaminophen 500 mg tablet 1,000 mg PO Q6HPRN PRN mild pain 09/30/24 09/30/24 History
(Tylenol Extra Strength)
ascorbic acid (vitamin C) 500 mg 500 mg PO DAILY Supplement 09/30/24 09/30/24 History
tablet (Vitamin C)
insulin glargine-yfgn 100 unit/mL 34 unit SC QPM Diabetes 09/30/24 09/30/24 History
subcutaneous solution
insulin regular human 100 unit/mL 8 unit SC TID Diabetes 09/30/24 09/30/24 History
injection solution (Novolin R
Regular U-100 Insulin)
Review of Systems
-
No chest pain or shortness of breath. Decreased appetite. No issues with eating. She reports standard ostomy output. Lower extreme edema as above.
All other systems: Negative unless noted
Physical Exam
Vital Signs
Vital Signs
Temp Pulse Resp BP Pulse Ox
97.3 F 60 14 155/72 96
10/02/24 11:00 10/02/24 11:00 10/02/24 11:00 10/02/24 11:00 10/02/24 11:00
Lab Results
WBC 5.4 10^3/uL (4.8-10.8) 10/02/24 06:10
RBC 3.91 10^6/uL (4.20-5.40) L 10/02/24 06:10
Hgb 10.8 g/dL (12.0-16.0) L 10/02/24 06:10
Hct 33.1 % (37.0-47.0) L 10/02/24 06:10
Plt Count 148 10^3/uL (130-400) 10/02/24 06:10
Sodium 141 mmol/L (135-145) 10/02/24 06:10
Potassium 3.9 mmol/L (3.5-5.1) 10/02/24 06:10
Chloride 112 mmol/L (98-107) H 10/02/24 06:10
Carbon Dioxide 22 mmol/L (22-30) 10/02/24 06:10
BUN 35 mg/dl (7-17) H 10/02/24 06:10
Creatinine 2.1 mg/dL (0.6-1.0) H 10/02/24 06:10
eGFR 24.57 10/02/24 06:10
Glucose 49 mg/dl (70-99) L* 10/02/24 06:10
Calcium 8.6 mg/dl (8.4-10.2) 10/02/24 06:10
Phosphorus 3.8 mg/dl (2.5-4.5) 10/02/24 06:10
Sxm-H-Iyobhbyplzq Pept 07298 pg/ml 10/02/24 06:10
Albumin 3.5 g/dl (3.5-5.0) 09/30/24 13:32
Laboratory Tests
09/09/24
17:05
Carbon Dioxide 24
Creatinine 1.[address] abdomen pelvis on September 09, 2024
IMPRESSION:
1. No significant acute abnormality identified in the abdomen or pelvis, within the limits of unenhanced CT, as described above.
Physical Exam
Patient is awake alert oriented and in no distress. Mood and affect were pleasant, insight and judgment were good. Pupils are equal round and reactive to light, extraocular movements are intact, sclera were anicteric. Hearing was normal, ears and
nose are intact. Oropharynx was clear. Neck was supple with trachea midline and no thyromegaly. Heart was regular rate and rhythm without rubs. Lower extremities with 2+ edema left greater than right edema. Lungs were clear to auscultation
bilaterally and with normal excursion. Abdomen was soft, nontender, with normal active bowel sounds, and no hepatosplenomegaly. Skin was without rash and with normal turgor. Ostomy was clean dry and intact.
Data Reviewed
-
Radiology: Image Personally Visualized and interpreted (Chest x-ray on 09/30/2024 by my reading shows small right effusion, cardiomegaly, vascular prominence)
Medical Tests (Nuc Med, Echo etc): Image Personally Visualized and interpreted (EKG on 09/30/2024 by my reading shows V paced rhythm)
Labs: Labs Reviewed by me
Old Records: Reviewed
Assessment/Plan
-
Assessment
CKD4 (1.8)
ANDI
diabetes mellitus type 2
Confusion, improved
Heart failure reduced ejection fraction
Paroxysmal atrial fibrillation
Ileostomy
Proteinuria
Weight loss, decreased appetite
Plan
At this point volume status will be somewhat difficult to ascertain. I suspect that she is volume overloaded based on x-ray and her description of edema
Lasix orally at this time as she is on room air
Follow BMP
I suspect that her elevated creatinine is likely close to her and either new baseline and or slightly related to her decreased intake
She appears to have worsening proteinuria and we will quantify this. This is likely from uncontrolled diabetes over time given her elevated A1c
She does have ketones in her urine which would likely be more suggestive of starvation ketosis.
[2024-10-02 12:16] LABS: Glucose - Point of Care 145 mg/dl (70-99)
--- NOTE | 2024-10-02 12:37 | CON.CAR ---
Consultation
Consultation Request
Date/Time Consultation Requested: 10/02 10:00
Date/Time Consultation Performed: 10/29 12:30
Requesting Provider: Gabby Garcia
Performing Provider: Roe Sanchez
Reason for Consultation: HFrEF
Medical History
-
Chief Complaint: Ran out of meds
History of Present Illness:
74-year-old woman with history of coronary artery bypass grafting, paroxysmal atrial fibrillation (on Eliquis), permanent pacemaker, chronic HFrEF/ischemic cardiomyopathy (EF 30-35%) who presents with altered mental status. Cardiology is consulted
because she has been out of her meds for 1 month at home.
Microbiological Laboratory Technician: Dr. Solano
Patient reports that she ran out of all of her medications a month ago and 'did not have anyone to prescribe them' so has not been taking anything. She came into the hospital because she felt that she was confused. On admission labs were notable
for NT proBNP 24,700. She reports that she feels at her baseline in terms of heart failure symptoms. She has chronic lymphedema but has not noticed that this is worse recently. She denies shortness of breath, chest pain, palpitations, orthopnea,
or paroxysmal nocturnal dyspnea.
Past Medical History
Past Medical History: Arrhythmias (Paroxysmal atrial fibrillation), CAD (Status post CABG), CHF (Heart failure with reduced ejection fraction (30-35%)) and Renal Failure
Past Surgical History: Cardiac (CABG)
Social History
Tobacco: Former Smoker
Family History
Family History: Other (Negative for premature CAD)
Allergies / Home Medications
Allergy/AdvReac Type Severity Reaction Status Date / Time
erythromycin base Allergy Unknown Verified 12/29/23 12:45
Iodinated Contrast Media Allergy Unknown Verified 12/29/23 12:45
[Iodinated Contrast Media -
IV Dye]
prednisone Allergy Unknown Verified 12/29/23 12:45
sulfamethoxazole Allergy Unknown Verified 12/29/23 12:45
[From Bactrim]
trimethoprim [From Bactrim] Allergy Unknown Verified 12/29/23 12:45
vancomycin Allergy Itching Verified 12/29/23 12:45
AND RED
SCALP
�Medication �Instructions �Recorded �Confirmed �Type
metoprolol succinate 50 mg 50 mg PO DAILY Heart 12/03/20 09/30/24 History
tablet,extended release 24 hr disease/condition
atorvastatin 40 mg tablet (Lipitor) 40 mg PO HS High cholesterol 02/18/23 09/30/24 History
buspirone 5 mg tablet 5 mg PO BID Mental Health/Anxiety 02/18/23 09/30/24 History
mirtazapine 7.5 mg tablet 7.5 mg PO HS Mental Health/Anxiety 02/18/23 09/30/24 History
apixaban 2.5 mg tablet (Eliquis) 2.5 mg PO BID #60 tabs 09/09/24 09/30/24 Rx
omeprazole 40 mg capsule,delayed 40 mg PO DAILY #30 caps 09/09/24 09/30/24 Rx
release
acetaminophen 500 mg tablet 1,000 mg PO Q6HPRN PRN mild pain 09/30/24 09/30/24 History
(Tylenol Extra Strength)
ascorbic acid (vitamin C) 500 mg 500 mg PO DAILY Supplement 09/30/24 09/30/24 History
tablet (Vitamin C)
insulin glargine-yfgn 100 unit/mL 34 unit SC QPM Diabetes 09/30/24 09/30/24 History
subcutaneous solution
insulin regular human 100 unit/mL 8 unit SC TID Diabetes 09/30/24 09/30/24 History
injection solution (Novolin R
Regular U-100 Insulin)
Review of Systems
-
All other systems: Negative unless noted
Physical Exam
Vital Signs
Temp Pulse Resp BP Pulse Ox
97.3 F 60 14 155/72 96
10/02/24 11:00 10/02/24 11:00 10/02/24 11:00 10/02/24 11:00 10/02/24 11:00
Lab Results
10/02/24 06:10
10/02/24 06:10
Jrd-U-Bbhbmxxnndt Pept 57633 pg/ml 10/02/24 06:10
Physical Exam
General: Well Developed, Well Nourished and Comfortable
Respiratory: Crackles (Faint crackles at the right base) and Non Labored Respirations
Cardiac: S1/S2, Regular Rhythm, Peripheral Edema and JVD (Difficulty assessed, patient sitting upright); Negative Murmur or Rub
Impression / Plan
-
74-year-old woman with history of coronary artery bypass grafting, paroxysmal atrial fibrillation (on Eliquis), permanent pacemaker, chronic HFrEF/ischemic cardiomyopathy (EF 30-35%) who presents with altered mental status. Cardiology is consulted
because she has been out of her meds for 1 month at home.
Microbiological Laboratory Technician: Dr. Solano
Acute on chronic heart failure with reduced ejection fraction
-She reports feeling mostly at her baseline, but has lower extremity edema and elevated NT proBNP
-Dry weight 76 kg (78 kg on admission)
-GDMT is limited by CKD. Continue metoprolol succinate 50 mg daily
-Diuresis with 40 mg IV Lasix daily. Will likely only need this for a few days as she is close to her dry weight.
-Follow-up echocardiogram (last in 05/22 showed LVEF 30-35%)
-Consideration of upgrade to BiV ICD as an outpatient
Paroxysmal atrial fibrillation
-Currently in a ventricular paced rhythm
-Increase apixaban to 5 mg twice daily (does not meet criteria for reduced dosing)
-Continue metoprolol succinate 50 mg daily
CAD status post CABG
-Continue atorvastatin 40 mg daily
-No aspirin due to systemic anticoagulation
CKD, at baseline
-Diuresis as above
-Appreciate nephrology recommendations
Pacemaker
-Stable with normal function
-Consideration of upgrade to BiV ICD
Data Reviewed
-
EKG: Tracing Personally Visualized and interpreted
Radiology: Image Personally Visualized and interpreted
Medical Tests (Nuc Med, Echo etc): Report Reviewed by me, Discussed with Physician and Discussed with Patient
Labs: Labs Reviewed by me and Discussed with Physician
[2024-10-02] MEDS: ELIQUIS 5 MG PO ×2 (13:25→21:14)
[2024-10-02 15:00] VITALS: BP 143/60
[2024-10-02 16:34] LABS: Glucose - Point of Care 233 mg/dl (70-99)
[2024-10-02] MEDS: NOVOLOG FLEXPEN-MODERATE RESISTANCE 3 UNITS SC (16:59)
[2024-10-02] MEDS: LASIX 40 MG IV (17:01)
[2024-10-02 18:14] LABS: Protein/creatinine Ratio 16.7; Urine Protein 1256 mg/dl
[2024-10-02] MEDS: LANTUS 0.1 UNITS SC (18:35)
[2024-10-02 19:29] VITALS: BP 146/100
[2024-10-02] MEDS: REMERON 7.5 MG PO (21:14)
[2024-10-02] MEDS: LIPITOR 40 MG PO (21:14)
[2024-10-02 21:17] LABS: Glucose - Point of Care 316 mg/dl (70-99)
[2024-10-02] MEDS: NOVOLOG FLEXPEN 5 UNITS SC (21:51)
[2024-10-02 23:26] VITALS: BP 146/65
[2024-10-03] VITALS (8 sets, daily range): BP systolic 130–152; BP diastolic 50–66; PULSE 56–61; O2SAT 100; BMI 30.1
[2024-10-03 03:07] LABS: Glucose - Point of Care 137 mg/dl (70-99)
[2024-10-03 08:08] LABS: Glucose - Point of Care 78 mg/dl (70-99)
[2024-10-03] MEDS: ELIQUIS 5 MG PO ×2 (08:09→20:27)
[2024-10-03] MEDS: TOPROL XL 50 MG PO (08:10)
[2024-10-03] MEDS: NOVOLOG FLEXPEN-MODERATE RESISTANCE SC (08:10)
[2024-10-03] MEDS: PROTONIX 40 MG PO (08:10)
[2024-10-03] MEDS: LASIX 40 MG IV ×2 (08:10→10:56)
[2024-10-03] MEDS: BUSPAR 5 MG PO ×2 (08:10→20:27)
--- NOTE | 2024-10-03 08:17 | W.PN.CD ---
Today's Communication / Plan
-
Increase furosemide to 80 mg IV daily.
Echocardiogram.
Monitor labs.
Impression / Plan
-
Impression/Plan: 74-year-old woman with history of coronary artery bypass grafting, paroxysmal atrial fibrillation (on apixaban), permanent pacemaker, chronic HFrEF/ischemic cardiomyopathy (EF 30-35%) who presents with altered mental status and
medication misadventure.
#Heart failure with reduced ejection fraction
-Acute on chronic.
-She reports feeling mostly at her baseline, but has lower extremity edema and elevated NT proBNP.
-Dry weight 76 kg (78 kg on admission).
-GDMT is limited by CKD. Continue metoprolol succinate 50 mg daily.
-Follow-up echocardiogram (last in 05/22 showed LVEF 30-35%).
-Consideration of upgrade to BiV ICD as an outpatient.
-Repeat echocardiogram.
-Increase furosemide to 80 mg daily (40 mg given this morning. Give additional 40 mg IV now).
#Paroxysmal atrial fibrillation
-Currently in a ventricular paced rhythm.
-Rate/rhythm control with metoprolol/PPM.
-CHADS2-Vasc = 6 (CHF, HTN, Age x1, DM, Vascular Disease, Female Gender).
-Apixaban increased to 5 mg twice daily.
#CAD
-Chronic.
-S/P CABG.
-Continue atorvastatin 40 mg daily.
-No aspirin due to systemic anticoagulation.
#CKD
-Stable, at baseline.
-Diuresis as above.
-Appreciate nephrology recommendations.
#Pacemaker
-Chronic.
-Stable with normal function.
-Consideration of upgrade to BiV ICD.
Home Assessment Nurse: Dr. Solano
Subjective/Interval History:
Hypoglycemic yesterday. Resolved with OJ.
Weight is up 1.6 kg from yesterday (79.4 kg <-- 77.8 kg).
SaO2 = 95% on RA.
Labs pending.
DATA:
CXR, 09/30/2024:
IMPRESSION:
There is a small right loculated pleural effusion as well as a likely trace left pleural effusion with associated atelectasis.
TTE, 05/12/2023:
CONCLUSIONS
Severely reduced left ventricular systolic function. LV ejection fraction is
30-35% by Blue's method of discs.
Akinesis of the inferoseptal, anteroseptal, and apical fowler.
Enlarged right ventricular size. Reduced right ventricular systolic function.
Mild mitral regurgitation.
Mild aortic regurgitation.
Mild aortic regurgitation. Estimated pulmonary artery pressure of 60-65 mmHg.
No significant change since the prior study of 2019.
Physical Exam
Vital Signs/Labs
Vital Signs
Temp Pulse Resp BP Pulse Ox
36.6 C 62 16 151/66 95
10/03/24 03:20 10/03/24 03:20 10/03/24 03:20 10/03/24 03:20 10/03/24 03:20
10/01/24 10/02/24 10/03/24
12:59 11:59 11:59
Actual Weight 79.424 kg
Magnesium 2.3 mg/dl (1.6-2.3) 10/02/24 06:10
10/02/24
06:10
Yif-B-Kahudlefmhw Pept [id number]
Physical Exam
Constitutional: No acute distress and Comfortable
EENT: Anicteric and Moist mucous membranes
Cardiovascular: Rhythm & rate is regular, JVD pressure is normal, Pedal edema present, S1S2 is normal and Murmur/rub/gallop absent
Respiratory: Respiratory effort normal, Wheeze Absent, Rhonchi Absent and Crackles Present
GI: Soft, Distention absent, Flat, Non tender and Normal bowel sounds
Neuro/Psych: AO x 3
Data Reviewed
-
Date of Service: October 03, 2024
Medical Decision Making: Reviewed Test Results, Independent Historian Assessment and Test Interpretation
EKG: Tracing Personally Visualized and interpreted and Report Reviewed by me
Echo: Ordered by me
X-Ray/CT/US/MRI/NUC/PET: Image Personally Visualized and interpreted and Report Reviewed by me
Medical Tests (PFT, Pathology etc): Report Reviewed by me
Labs: Labs Reviewed by me
Old Records: Reviewed
--- NOTE | 2024-10-03 08:38 | VNURNOTE ---
Chart reviewed. Patient is current with [facility] nursing, DATABASE MANAGEMENT SPECIALIST, and COMPANY DOCTOR. Will continue to follow hospital course and DC plans.
[2024-10-03 09:43] LABS: Mean Corp Hgb Conc. 33.3 g/dL (33.0-37.0); Mean Corpuscular Volume 83.9 fL (81.0-99.0); Mean Platelet Volume 11.1 fL (7.4-10.4); Platelet Count 186 10^3/uL (130-400); Red Blood Cell Count 4.65 10^6/uL (4.20-5.40); Red Cell Dist. Width 15.3 % (11.5-14.5); White Blood Cell Count 5.6 10^3/uL (4.8-10.8)
[2024-10-03 10:19] LABS: Blood Urea Nitrogen 37 mg/dl (7-17); Carbon Dioxide 19 mmol/L (22-30); Chloride 110 mmol/L (98-107); Estimated Creatinine Clearance 25 ml/min; Glucose 71 mg/dl (70-99); Magnesium 2.1 mg/dl (1.6-2.3); Phosphorus 3.6 mg/dl (2.5-4.5); Potassium 4.2 mmol/L (3.5-5.1); Sodium 140 mmol/L (135-145); eGFR 24.57
--- NOTE | 2024-10-03 10:21 | WOUNDNOTE ---
R ANKLE/CALF (LATERAL)
--- NOTE | 2024-10-03 10:22 | WOUNDNOTE ---
L ISCHIUM (UNDERMINES 2-3CM DISTALLY)
--- NOTE | 2024-10-03 10:23 | WOUNDNOTE ---
[facility] RN note: Patient admitted with acute TME. Patient lives alone at home. Her family checks in with her.
See H&P for complete history.
PMH: Chronic L ischial stage 4 pressure injury, CAD, CABG, a fib, CKD3, anemia, diverticular disease, Hodgkin's lymphoma 1989, CHF, HTN, IDDM, colostomy, venous swelling, L ankle fusion, obesity and L great toe amputation, HTN, pacer, L ankle
fusion, Charcot foot.
Wound Location and type/assessment: Chronic L ischial stage 4 pressure injury, pink with macerated edges, undermines distally about 2-3cm. No odor, no induration. Sacrum with small almost healed stage 3 pressure injury. R lateral lower leg with
intact ecchymotic purple/black blister suspect with break. Ultrasound of legs was negative for DVT. Blanchable red heels. Pedal pulses heard via portable Doppler. LE edema, L>R. Patient has Farrow wraps and compression pumps at home. MASD sharla/labia
area. Patient incontinent of urine. At home patient sleeps in recliner chair and sits in wheelchair during the day. Patient has history of non compliance with off loading sacral/buttocks. Colostomy stoma pink, no leakage. Using Convatec one piece
drainable pouch with clip, is independent with care.
Appetite: on TLC diet.
Pressure redistribution devices in place: [employer] Accumax. Bed tech Sorin brought up a [employer] air bed. DAO Clay aware to switch bed. She can turn self in bed slowly. Heels off bed with pillows.
Plan: Sharla care given with help from PT Brenna and OT Sir. Dressing changed to L ischium. Silicone foam maintained on sacrum. Silicone border foam changed on RLE and L dorsal foot. t/c SPD for Tubigrip size F knee for R knee high and size G for L
knee high. DAO Clay aware to apply. Colostomy supplies left at bedside. Nursing can assist with routine pouch changes. Pouch emptied for small loose brown stool.
Updated ad confirmed orders with Dr. Alves including knee high Tubigrip. Dr. Alves saw RLE blister photo. Care plan to be update and will follow as needed.
Note to case management requested for discharge: VN if goes home with assist with wound care.
Recommend follow up at wound care center upon discharge.
--- NOTE | 2024-10-03 10:39 | W.PN.NEPH.PH ---
Today's Communication / Plan
-
Maintain oral Lasix 80mg daily
Follow-up accurate I's and O's
Assessment/Plan
-
Assessment
CKD4 (1.8)
ANDI
diabetes mellitus type 2
Confusion, improved
Heart failure reduced ejection fraction
Paroxysmal atrial fibrillation
Ileostomy
Proteinuria
Weight loss, decreased appetite
Suspected congestive heart failure decompensation
Plan
At this point volume status will be somewhat difficult to ascertain. I suspect that she is volume overloaded based on x-ray and her description of edema
Lasix orally at this time as she is on room air, cardiology provided 80 mg IV Lasix today
for echocardiogram today
Follow BMP, creatinine stable at 2.1, urine output not recorded, need accurate i/os
I suspect that her elevated creatinine is likely close to her and either new baseline and or slightly related to her decreased intake
She appears to have worsening proteinuria and we will quantify this. This is likely from uncontrolled diabetes over time given her elevated A1c
She does have ketones in her urine which would likely be more suggestive of starvation ketosis.
-
-
Date of Service: October 03, 2024
CC / HPI / ROS
-
Chief Complaint:
CKD stage IIIb
History of Present Illness:
Creatinine stable at 2.1
Hemodynamically stable
Remains on Lasix 80 mg daily for suspected volume overload
Review of Systems:
Urine output not recorded
No chest pain reported
Weights up
Labs
-
Labs:
WBC 5.6 10^3/uL (4.8-10.8) 10/03/24 09:10
RBC 4.65 10^6/uL (4.20-5.40) 10/03/24 09:10
Hgb 13.0 g/dL (12.0-16.0) D 10/03/24 09:10
Hct 39.0 % (37.0-47.0) 10/03/24 09:10
Plt Count 186 10^3/uL (130-400) D 10/03/24 09:10
Sodium 140 mmol/L (135-145) 10/03/24 09:10
Potassium 4.2 mmol/L (3.5-5.1) 10/03/24 09:10
Chloride 110 mmol/L (98-107) H 10/03/24 09:10
Carbon Dioxide 19 mmol/L (22-30) L 10/03/24 09:10
BUN 37 mg/dl (7-17) H 10/03/24 09:10
Creatinine 2.1 mg/dL (0.6-1.0) H 10/03/24 09:10
eGFR 24.57 10/03/24 09:10
Glucose 71 mg/dl (70-99) 10/03/24 09:10
Calcium 9.0 mg/dl (8.4-10.2) 10/03/24 09:10
Phosphorus 3.6 mg/dl (2.5-4.5) 10/03/24 09:10
Drn-D-Lvjhxdblkhc Pept 25936 pg/ml 10/02/24 06:10
Albumin 3.5 g/dl (3.5-5.0) 09/30/24 13:32
Physical Exam
-
Vital Signs:
Vital Signs
Temp Pulse Resp BP Pulse Ox
97.6 F 64 16 152/60 99
10/03/24 07:45 10/03/24 07:45 10/03/24 07:45 10/03/24 07:45 10/03/24 07:45
Cardiovascular:: Regular rate and rhythm
Respiratory:: Bilateral: CTA
Lung Excursion:: Normal
Abdomen:: Nontender and Soft
Extremity Edema:: +1: Bilateral:
Juan Catheter: No
--- NOTE | 2024-10-03 11:13 | W.PN.HOSP.TC ---
Today's Communication/Plan
-
continue IV diuresis
await Echo results
Assessment / Plan
Assessment / Plan
74y F with PMH significant for A-Fib / Flutter, CHF, CKD and DM-II who presents to ED c/o confusion and weakness. Reported globally weak at home for some time. Recently visited at home by her PCP who expressed concerns regarding confusion.
Patient notes that ran out of Lasix about 3-4 weeks and the rest of her medications about 2 weeks ago including her insulin. Reported eating perhaps one meal daily and drinking one bottle of water. She states that she urinates about once per day.
She has liquid, 'chocolate milk' stools that are non-bloody. Patient was seen in the ED here on 09/09 of abdominal pain - but denies any such symptoms at present.
Denied sore throat, cough, chest pain, dyspnea, fevers / chills, N/V or dysuria.
Assessment:
Acute TME resolving/resolved
- AOx3 at this time
- CT head noted no acute abnormalities
- Patient notes that she has been off of all of her prescribed medications for the past 2 weeks at least (ran out of medications per pt)
- home meds restarted
CXR appreciated small right loculated pleural effusion and trace left pleural effusion w/ associate atelectasis
- otherwise stable respiratory status on room air
- incentive spirometer ordered
CAD with hx of CABG
acute on Chronic HFrEF
- continue IV Lasix - requires intensive monitoring of I/Os, weights, lytes. Dry weight 76 kg.
- GDMT: limited by CKD. Continue BB
- update Echocardiogram
- CBC Cardiology following
Chronic Lower Ext Lymphedema
- venous duplex appreciated neg for DVT
ANDI on CKD stage 4
Non-Gapped Metabolic Acidosis resolved
- Cr 1.8 baseline
- monitor BMP while on IV Lasix
- Nephrology following
- quantify proteinuria
Paroxysmal A-Fib / Flutter
History of Heart Block s/p PPM
- Stable
- cont metoprolol and Eliquis as noted above (renally dosed).
- Monitor on telemetry.
DM-II
- Stable. Moderate hyperglycemia but no anion gap acidosis to suggest DKA, etc.
- Continue basal:bolus insulin regimen and adjust as needed for adequate control.
- SSI coverage as needed for now.
- A1c is 10.8
- Lantus reduced to 8 units d/t hypoglycemia in morning
Anxiety / Depression
- home buspirone and mirtazapine resumed
Ostomy d/t diverticulitis 10 years ago
- No tenderness or other concerning findings on exam.
- Had CT done which was also unremarkable.
- follow up stool studies
- Routine ostomy care.
Wheelchair bound since ostomy as per pt
- PT/OT evals
Hx of Hodgkin's lymphoma 1988
Chronic L ischial stage 4 pressure injury, pink with macerated edges, undermines distally about 2-3cm.
Sacrum with small almost healed stage 3 pressure injury.
R lateral lower leg with intact ecchymotic purple/black blister suspect with break.
Blanchable red heels.
MASD echo/labia area. P
- wound care service following
DVT ppx: Eliquis
Code: DNR/DNI
Anticipated Discharge: > 48 hours
Subjective/Interval History
-
Date of Service: October 03, 2024
no acute complaints
was seen prior to Echo being performed in room
Objective Data
-
Labs:
Laboratory Results
10/03/24
09:10
WBC 5.6
Hgb 13.0 D
Hct 39.0
Plt Count 186 D
Sodium 140
Potassium 4.2
Chloride 110 H
Carbon Dioxide 19 L
BUN 37 H
Creatinine 2.1 H
Glucose 71
Calcium 9.0
Vital Signs:
Vital Signs
Temp Pulse Resp BP Pulse Ox
97.6 F 64 16 152/60 99
10/03/24 07:45 10/03/24 07:45 10/03/24 07:45 10/03/24 07:45 10/03/24 07:45
I&O
10/02/24 10/03/24 10/04/24
06:59 06:59 06:59
Intake Total 840 / 840
Balance 840 / 840
Physical Exam
-
General: No Apparent Distress
HEENT: Normocephalic and Atraumatic
Respiratory: Negative Wheezes
Cardiac: Regular Rhythm and S1/S2
GI: Soft and Nontender
Genito-urinary: No Costovertebral Tender
Musculoskeletal: Other (+2 pitting edema b/l LE - L > R. Blister over lateral aspect of the distal RLE)
Skin: Other (Open wound over the L buttocks / ischium area without bleeding, discharge or surrounding erythema)
Neuro: AO x 3
Psych: Calm
Data Reviewed
-
Total Time Spent with Patient (in minutes): 51
Labs: Labs Reviewed by me
[2024-10-03 12:32] LABS: Glucose - Point of Care 181 mg/dl (70-99)
[2024-10-03] MEDS: NOVOLOG FLEXPEN-MODERATE RESISTANCE 1 UNITS SC (12:32)
--- NOTE | 2024-10-03 15:39 | CM ---
Reviewed the chart notes and spoke with the patient at the bedside. Discuss PT recommendation of SNF/rehab prior to transitioning back to home. Patient agreeable to referral being sent to [facility]. CM continues to be available to
patient/family and is monitoring medical plan for needs at discharge.
Plan: Discharge to SNF/rehab prior to transitioning back to home. No precert required.
[2024-10-03 16:41] LABS: Glucose - Point of Care 434 mg/dl (70-99)
[2024-10-03 17:32] LABS: Glucose 340 mg/dl (70-99)
[2024-10-03] MEDS: NOVOLOG FLEXPEN-MODERATE RESISTANCE 7 UNITS SC (17:34)
[2024-10-03] MEDS: LANTUS 0.08 UNITS SC (17:35)
[2024-10-03 19:35] LABS: Glucose - Point of Care 448 mg/dl (70-99)
[2024-10-03 20:03] LABS: Glucose 362 mg/dl (70-99)
[2024-10-03] MEDS: NOVOLOG FLEXPEN 10 UNITS SC (20:27)
[2024-10-03] MEDS: REMERON 7.5 MG PO (22:05)
[2024-10-03] MEDS: LIPITOR 40 MG PO (22:05)
[2024-10-03 23:01] LABS: Glucose - Point of Care 301 mg/dl (70-99)
[2024-10-04] VITALS (7 sets, daily range): BP systolic 128–135; BP diastolic 52–58; BMI 29.8
[2024-10-04 07:54] LABS: Glucose - Point of Care 224 mg/dl (70-99)
[2024-10-04 08:13] LABS: Hematocrit 35.3 % (37.0-47.0); Hemoglobin 11.6 g/dL (12.0-16.0); Mean Corp Hgb Conc. 32.9 g/dL (33.0-37.0); Mean Corpuscular Hgb 27.8 pg (27.0-31.0); Mean Corpuscular Volume 84.7 fL (81.0-99.0); Mean Platelet Volume 10.8 fL (7.4-10.4); Platelet Count 130 10^3/uL (130-400); Red Blood Cell Count 4.17 10^6/uL (4.20-5.40); Red Cell Dist. Width 15.2 % (11.5-14.5); White Blood Cell Count 4.5 10^3/uL (4.8-10.8)
--- NOTE | 2024-10-04 08:28 | W.PN.CD ---
Today's Communication / Plan
-
-Continue Lasix 80 mg IV daily.
Impression / Plan
-
Impression/Plan: 74-year-old woman with history of coronary artery bypass grafting, paroxysmal atrial fibrillation (on apixaban), permanent pacemaker, chronic HFrEF/ischemic cardiomyopathy (EF 30-35%) who presents with altered mental status and
medication misadventure.
#Heart failure with reduced ejection fraction (EF 35-40%) --on echocardiogram yesterday with moderate TR.
-Acute on chronic.
-Dry weight 76 kg (78 kg on admission).
-Continue metoprolol succinate 50 mg daily.
-Further GDMT is limited by CKD.
-Echocardiogram 05/22 showed LVEF 30-35%, so slightly improved.
-Continue Lasix 80 mg IV daily.
#Paroxysmal atrial fibrillation
-Currently in a ventricular paced rhythm.
-Rate/rhythm control with metoprolol/PPM.
-CHADS2-Vasc = 6 (CHF, HTN, Age x1, DM, Vascular Disease, Female Gender).
-Apixaban increased to 5 mg twice daily.
-Stable.
#CAD
-Chronic.
-S/P CABG.
-Continue atorvastatin 40 mg daily.
-No aspirin due to systemic anticoagulation.
-Stable.
#CKD
-Relatively stable; nephrology following.
#Pacemaker
-Stable with normal function.
Product Development Specialist: Dr. Solano
Subjective/Interval History:
No major events overnight.
DATA:
CXR, 09/30/2024:
IMPRESSION:
There is a small right loculated pleural effusion as well as a likely trace left pleural effusion with associated atelectasis.
TTE, 05/12/2023:
CONCLUSIONS
Severely reduced left ventricular systolic function. LV ejection fraction is
30-35% by Blue's method of discs.
Akinesis of the inferoseptal, anteroseptal, and apical fowler.
Enlarged right ventricular size. Reduced right ventricular systolic function.
Mild mitral regurgitation.
Mild aortic regurgitation.
Mild aortic regurgitation. Estimated pulmonary artery pressure of 60-65 mmHg.
No significant change since the prior study of 2019.
Physical Exam
Vital Signs/Labs
Vital Signs
Temp Pulse Resp BP Pulse Ox
97.9 F 60 18 134/56 95
10/04/24 03:30 10/04/24 03:30 10/04/24 03:30 10/04/24 03:30 10/04/24 03:30
10/03/24 10/04/24 10/05/24
06:59 06:59 06:59
Actual Weight 79.424 kg 78.744 kg
10/04/24 07:18
Magnesium 2.1 mg/dl (1.6-2.3) 10/03/24 09:10
10/02/24
06:10
Tjk-O-Edsxyzakpwf Pept 49536
Physical Exam
Constitutional: No acute distress and Comfortable
EENT: Anicteric
Cardiovascular: Rhythm & rate is regular, Pedal edema present (1-2+), Systolic murmur present (2/6) and S1S2 is normal
Respiratory: Respiratory effort normal and Rhonchi Present (Bilateral)
GI: Soft
Neuro/Psych: AO x 3
Other: Skin (warm)
Data Reviewed
-
Date of Service: October 04, 2024
Echo: Tracing Personally Visualized and interpreted (EF 35-40%; moderate TR, PASP 71 mmHg.)
Labs: Labs Reviewed by me
[2024-10-04 08:31] LABS: Blood Urea Nitrogen 42 mg/dl (7-17); Calcium 8.6 mg/dl (8.4-10.2); Carbon Dioxide 21 mmol/L (22-30); Chloride 110 mmol/L (98-107); Estimated Creatinine Clearance 23 ml/min; Glucose 189 mg/dl (70-99); Potassium 4.2 mmol/L (3.5-5.1); Sodium 139 mmol/L (135-145); eGFR 23.24
[2024-10-04] MEDS: TOPROL XL 50 MG PO (08:47)
[2024-10-04] MEDS: BUSPAR 5 MG PO ×2 (08:47→20:41)
[2024-10-04] MEDS: LASIX 80 MG IV (08:47)
[2024-10-04] MEDS: ELIQUIS 5 MG PO ×2 (08:47→20:41)
[2024-10-04] MEDS: PROTONIX 40 MG PO (08:47)
[2024-10-04] MEDS: NovoLIN R Flexpen 8 UNITS SC ×3 (08:48→17:19)
[2024-10-04] MEDS: NOVOLOG FLEXPEN-MODERATE RESISTANCE 3 UNITS SC ×2 (08:48→12:53)
[2024-10-04] MEDS: HYDROPHOR 1 APPLIC TOPICAL (09:02)
--- NOTE | 2024-10-04 10:09 | CM ---
Reviewed the chart notes. [facility] has accepted the patient when discharged. CM continues to be available to patient/family and is monitoring medical plan for needs at discharge.
Plan: Discharge to SNF when medically stable. No precert required.
[2024-10-04 11:42] LABS: Glucose - Point of Care 240 mg/dl (70-99)
--- NOTE | 2024-10-04 11:51 | W.PN.NEPH.PH ---
Today's Communication / Plan
-
Observe on IV diuretics
Follow BMP
Assessment/Plan
-
Assessment
CKD4 (1.8)
ANDI
diabetes mellitus type 2
Confusion, improved
Heart failure reduced ejection fractionEF 30-35%
Paroxysmal atrial fibrillation
Ileostomy
Proteinuria
Weight loss, decreased appetite
Suspected congestive heart failure decompensation
Plan
At this point volume status will be somewhat difficult to ascertain. I suspect that she is volume overloaded based on x-ray and her description of edema
Lasix orally at this time as she is on room air, cardiology provided 80 mg IV Lasix daily: weights down today
for echocardiogram today
Follow BMP, creatinine stable at 2.2, urine output not recorded, need accurate i/os
I suspect that her elevated creatinine is likely close to her and either new baseline and or slightly related to her decreased intake
She appears to have worsening proteinuria 16.7grams This is likely from uncontrolled diabetes over time given her elevated A1c
She does have ketones in her urine which would likely be more suggestive of starvation ketosis.
-
-
Date of Service: October 04, 2024
CC / HPI / ROS
-
Chief Complaint:
CKD stage IIIb
History of Present Illness:
Creatinine stable at 2.2, BUN 42
Hemodynamically stable
Remains on Lasix 80 mg IV daily for suspected volume overload
Review of Systems:
Urine output not recorded
No chest pain reported
Weights down
Labs
-
Labs:
WBC 4.5 10^3/uL (4.8-10.8) L 10/04/24 07:18
RBC 4.17 10^6/uL (4.20-5.40) L 10/04/24 07:18
Hgb 11.6 g/dL (12.0-16.0) L 10/04/24 07:18
Hct 35.3 % (37.0-47.0) L 10/04/24 07:18
Plt Count 130 10^3/uL (130-400) D 10/04/24 07:18
Sodium 139 mmol/L (135-145) 10/04/24 07:18
Potassium 4.2 mmol/L (3.5-5.1) 10/04/24 07:18
Chloride 110 mmol/L (98-107) H 10/04/24 07:18
Carbon Dioxide 21 mmol/L (22-30) L 10/04/24 07:18
BUN 42 mg/dl (7-17) H 10/04/24 07:18
Creatinine 2.2 mg/dL (0.6-1.0) H 10/04/24 07:18
eGFR 23.24 10/04/24 07:18
Glucose 189 mg/dl (70-99) H 10/04/24 07:18
Calcium 8.6 mg/dl (8.4-10.2) 10/04/24 07:18
Phosphorus 3.6 mg/dl (2.5-4.5) 10/03/24 09:10
Vbg-B-Tcxpuvzhnlg Pept 31963 pg/ml 10/02/24 06:10
Albumin 3.5 g/dl (3.5-5.0) 09/30/24 13:32
Physical Exam
-
Vital Signs:
Vital Signs
Temp Pulse Resp BP Pulse Ox
98.3 F 62 16 128/54 98
10/04/24 11:48 10/04/24 11:48 10/04/24 11:48 10/04/24 11:48 10/04/24 11:48
Cardiovascular:: Regular rate and rhythm
Respiratory:: Bilateral: CTA
Lung Excursion:: Normal
Abdomen:: Nontender and Soft
Extremity Edema:: +2: Bilateral:
Juan Catheter: No
--- NOTE | 2024-10-04 15:11 | PTCARENOTE ---
Cardiology made aware of 11 beat run of vtach. No new orders at this time.
--- NOTE | 2024-10-04 15:36 | W.PN.HOSP.TC ---
Today's Communication/Plan
-
continue IV Lasix
Assessment / Plan
Assessment / Plan
74y F with PMH significant for A-Fib / Flutter, CHF, CKD and DM-II who presents to ED c/o confusion and weakness. Reported globally weak at home for some time. Recently visited at home by her PCP who expressed concerns regarding confusion.
Patient notes that ran out of Lasix about 3-4 weeks and the rest of her medications about 2 weeks ago including her insulin. Reported eating perhaps one meal daily and drinking one bottle of water. She states that she urinates about once per day.
She has liquid, 'chocolate milk' stools that are non-bloody. Patient was seen in the ED here on 09/09 of abdominal pain - but denies any such symptoms at present.
Denied sore throat, cough, chest pain, dyspnea, fevers / chills, N/V or dysuria.
Assessment:
Acute TME resolving/resolved
- AOx3 at this time
- CT head noted no acute abnormalities
- Patient notes that she has been off of all of her prescribed medications for the past 2 weeks at least (ran out of medications per pt)
- home meds restarted
CXR appreciated small right loculated pleural effusion and trace left pleural effusion w/ associate atelectasis
- otherwise stable respiratory status on room air
- incentive spirometer ordered
CAD with hx of CABG
acute on Chronic HFrEF
- continue IV Lasix - requires intensive monitoring of I/Os, weights, lytes. Dry weight 76 kg.
- GDMT: limited by CKD. Continue BB
- update Echocardiogram
- CBC Cardiology following
Chronic Lower Ext Lymphedema
- venous duplex appreciated neg for DVT
ANDI on CKD stage 4
Non-Gapped Metabolic Acidosis resolved
- Cr 1.8 baseline
- monitor BMP while on IV Lasix
- Nephrology following
- quantify proteinuria
Paroxysmal A-Fib / Flutter
History of Heart Block s/p PPM
- Stable
- cont metoprolol and Eliquis as noted above (renally dosed).
- Monitor on telemetry.
DM-II
- Stable. Moderate hyperglycemia but no anion gap acidosis to suggest DKA, etc.
- Continue basal:bolus insulin regimen and adjust as needed for adequate control.
- SSI coverage as needed for now.
- A1c is 10.8
- Lantus reduced to 8 units d/t hypoglycemia in morning
Anxiety / Depression
- home buspirone and mirtazapine resumed
Ostomy d/t diverticulitis 10 years ago
- No tenderness or other concerning findings on exam.
- Had CT done which was also unremarkable.
- follow up stool studies
- Routine ostomy care.
Wheelchair bound since ostomy as per pt
- PT/OT evals
Hx of Hodgkin's lymphoma 1988
Chronic L ischial stage 4 pressure injury, pink with macerated edges, undermines distally about 2-3cm.
Sacrum with small almost healed stage 3 pressure injury.
R lateral lower leg with intact ecchymotic purple/black blister suspect with break.
Blanchable red heels.
MASD echo/labia area. P
- wound care service following
DVT ppx: Eliquis
Code: DNR/DNI
Anticipated Discharge: 24 - 48 hours
Subjective/Interval History
-
Date of Service: October 04, 2024
denies any new complaints
asymptomatic 12 beat VT earlier
Objective Data
-
Labs:
Laboratory Results
10/04/24
07:18
WBC 4.5 L
Hgb 11.6 L
Hct 35.3 L
Plt Count 130 D
Sodium 139
Potassium 4.2
Chloride 110 H
Carbon Dioxide 21 L
BUN 42 H
Creatinine 2.2 H
Glucose 189 H
Calcium 8.6
Vital Signs:
Vital Signs
Temp Pulse Resp BP Pulse Ox
98.3 F 62 16 128/54 98
10/04/24 11:48 10/04/24 11:48 10/04/24 11:48 10/04/24 11:48 10/04/24 11:48
I&O
10/03/24 10/04/24 10/05/24
06:59 06:59 06:59
Intake Total 840 / 840 1260 / 1260
Output Total
Balance 840 / 840 1235 / 1235
Physical Exam
-
General: No Apparent Distress
HEENT: Normocephalic and Atraumatic
Respiratory: Negative Wheezes
Cardiac: Regular Rhythm and S1/S2
GI: Soft
Neuro: AO x 3
Psych: Calm
Data Reviewed
-
Total Time Spent with Patient (in minutes): 51
Labs: Labs Reviewed by me
[2024-10-04 16:51] LABS: Glucose - Point of Care 357 mg/dl (70-99)
[2024-10-04] MEDS: NOVOLOG FLEXPEN-MODERATE RESISTANCE 9 UNITS SC (17:18)
[2024-10-04] MEDS: LANTUS 0.14 UNITS SC (17:20)
[2024-10-04 19:16] LABS: Albumin 2.31 g/dL (3.75-5.01); Alpha 1 Globulin 0.26 g/dL (0.19-0.46); Alpha 2 Globulin 0.57 g/dL (0.48-1.05); SPEP IFE Reflex Not Done; Total Protein-Electrophoresis 4.7 g/dL (6.3-8.2)
[2024-10-04] MEDS: LIPITOR 40 MG PO (22:20)
[2024-10-04] MEDS: REMERON 7.5 MG PO (22:20)
[2024-10-04 22:27] LABS: Glucose - Point of Care 219 mg/dl (70-99)
[2024-10-05] VITALS (7 sets, daily range): BP systolic 119–143; BP diastolic 42–60; PULSE 61; O2SAT 97; BMI 29.0
[2024-10-05 07:50] LABS: Hematocrit 34.8 % (37.0-47.0); Hemoglobin 11.5 g/dL (12.0-16.0); Mean Corpuscular Volume 84.7 fL (81.0-99.0); Mean Platelet Volume 10.7 fL (7.4-10.4); Platelet Count 123 10^3/uL (130-400); Red Blood Cell Count 4.11 10^6/uL (4.20-5.40); Red Cell Dist. Width 15.2 % (11.5-14.5); White Blood Cell Count 5.5 10^3/uL (4.8-10.8)
[2024-10-05 07:53] LABS: Glucose - Point of Care 234 mg/dl (70-99)
--- NOTE | 2024-10-05 08:12 | W.PN.CD ---
Today's Communication / Plan
-
Adjust diuretics based on symptoms and labs.
Start hydralazine 25 mg TID and isosorbide mononitrate 30 mg daily.
Impression / Plan
-
Impression/Plan: 74-year-old woman with history of coronary artery bypass grafting, paroxysmal atrial fibrillation (on apixaban), permanent pacemaker, chronic HFrEF/ischemic cardiomyopathy (EF 30-35%) who presents with altered mental status and
medication misadventure.
#Heart failure with reduced ejection fraction/ICMO
-Acute on chronic.
-LVEF 35-40%.
-Dry weight 76 kg (78 kg on admission).
-Continue metoprolol succinate 50 mg daily.
-Further GDMT is limited by CKD. Start hydralazine 25 mg TID and isosorbide mononitrate 30 mg daily.
-Echocardiogram 05/22 showed LVEF 30-35%, so slightly improved.
-Adjust furosemide based on symptoms and labs.
#Paroxysmal atrial fibrillation
-Currently in a ventricular paced rhythm.
-Rate/rhythm control with metoprolol/PPM.
-CHADS2-Vasc = 6 (CHF, HTN, Age x1, DM, Vascular Disease, Female Gender).
-Apixaban increased to 5 mg twice daily.
-Stable.
#CAD
-Chronic.
-S/P CABG.
-Continue atorvastatin 40 mg daily.
-No aspirin due to systemic anticoagulation.
-Stable.
#CKD
-Relatively stable; nephrology following.
#Pacemaker
-Stable with normal function.
Gas Fitter: Dr. Solano
Subjective/Interval History:
Asymptomatic NSVT yesterday.
Weight down 2.2 kg (76.6 kg <-- 78.7 kg).
Labs pending.
DATA:
CXR, 09/30/2024:
IMPRESSION:
There is a small right loculated pleural effusion as well as a likely trace left pleural effusion with associated atelectasis.
TTE, 05/12/2023:
CONCLUSIONS
Severely reduced left ventricular systolic function. LV ejection fraction is
30-35% by Blue's method of discs.
Akinesis of the inferoseptal, anteroseptal, and apical fowler.
Enlarged right ventricular size. Reduced right ventricular systolic function.
Mild mitral regurgitation.
Mild aortic regurgitation.
Mild aortic regurgitation. Estimated pulmonary artery pressure of 60-65 mmHg.
No significant change since the prior study of 2019.
Physical Exam
Vital Signs/Labs
Vital Signs
Temp Pulse Resp BP Pulse Ox
36.3 C 61 19 131/44 98
10/05/24 03:19 10/05/24 03:19 10/05/24 03:19 10/05/24 03:19 10/05/24 03:19
10/03/24 10/04/24 10/05/24
11:59 11:59 11:59
Actual Weight 79.424 kg 78.744 kg 76.566 kg
10/05/24 07:23
Magnesium 2.1 mg/dl (1.6-2.3) 10/03/24 09:10
10/02/24
06:10
Dhn-K-Wxyyumrkjit Pept [id number]
Physical Exam
Constitutional: No acute distress and Comfortable
EENT: Anicteric and Moist mucous membranes
Cardiovascular: Rhythm & rate is regular, Pedal edema is absent, JVD pressure is normal, S1S2 is normal and Murmur/rub/gallop absent
Respiratory: Respiratory effort normal, Wheeze Absent, Rhonchi Absent and Crackles Present (Bilateral bases.)
GI: Soft, Distention absent, Flat, Non tender and Normal bowel sounds
Neuro/Psych: AO x 3
Data Reviewed
-
Date of Service: October 05, 2024
Medical Decision Making: Reviewed Test Results, Independent Historian Assessment and Test Interpretation
EKG: Tracing Personally Visualized and interpreted and Report Reviewed by me
Echo: Tracing Personally Visualized and interpreted and Report Reviewed by me
X-Ray/CT/US/MRI/NUC/PET: Image Personally Visualized and interpreted and Report Reviewed by me
Medical Tests (PFT, Pathology etc): Image Personally Visualized and interpreted and Report Reviewed by me
Labs: Labs Reviewed by me
Old Records: Reviewed
[2024-10-05] MEDS: NOVOLOG FLEXPEN-MODERATE RESISTANCE 3 UNITS SC (08:45)
[2024-10-05 08:46] LABS: Blood Urea Nitrogen 52 mg/dl (7-17); Calcium 8.7 mg/dl (8.4-10.2); Carbon Dioxide 20 mmol/L (22-30); Chloride 110 mmol/L (98-107); Estimated Creatinine Clearance 21 ml/min; Glucose 268 mg/dl (70-99); Potassium 4.3 mmol/L (3.5-5.1); Sodium 138 mmol/L (135-145); eGFR 20.93
[2024-10-05] MEDS: NovoLIN R Flexpen 8 UNITS SC ×2 (08:46→12:47)
[2024-10-05] MEDS: IMDUR (EXTENDED RELEASE) 30 MG PO (08:47)
[2024-10-05] MEDS: ELIQUIS 5 MG PO ×2 (08:47→20:39)
[2024-10-05] MEDS: BUSPAR 5 MG PO ×2 (08:47→20:39)
[2024-10-05] MEDS: TOPROL XL 50 MG PO (08:47)
[2024-10-05] MEDS: PROTONIX 40 MG PO (08:47)
[2024-10-05] MEDS: LASIX 80 MG IV (08:48)
[2024-10-05] MEDS: HYDROPHOR 1 APPLIC TOPICAL (08:49)
--- NOTE | 2024-10-05 10:31 | W.PN.NEPH.PH ---
Today's Communication / Plan
-
NS w/u
Assessment/Plan
-
Assessment
CKD4 (1.8)
ANDI
diabetes mellitus type 2
Confusion, improved
Heart failure reduced ejection fractionEF 30-35%
Paroxysmal atrial fibrillation
Ileostomy
Proteinuria
Weight loss, decreased appetite
Suspected congestive heart failure decompensation
Plan
diurese
follow BMP
check serologies
24 hr urine
-
-
Date of Service: October 05, 2024
CC / HPI / ROS
-
Chief Complaint:
CKD stage IIIb
History of Present Illness:
Creatinine stable at 2.4, BUN 52
Hemodynamically stable
Remains on Lasix 80 mg IV daily for suspected volume overload
Review of Systems:
no SOB
No chest pain reported
Labs
-
Labs:
WBC 5.5 10^3/uL (4.8-10.8) 10/05/24 07:23
RBC 4.11 10^6/uL (4.20-5.40) L 10/05/24 07:23
Hgb 11.5 g/dL (12.0-16.0) L 10/05/24 07:23
Hct 34.8 % (37.0-47.0) L 10/05/24 07:23
Plt Count 123 10^3/uL (130-400) L 10/05/24 07:23
Sodium 138 mmol/L (135-145) 10/05/24 07:23
Potassium 4.3 mmol/L (3.5-5.1) 10/05/24 07:23
Chloride 110 mmol/L (98-107) H 10/05/24 07:23
Carbon Dioxide 20 mmol/L (22-30) L 10/05/24 07:23
BUN 52 mg/dl (7-17) H 10/05/24 07:23
Creatinine 2.4 mg/dL (0.6-1.0) H 10/05/24 07:23
eGFR 20.93 10/05/24 07:23
Glucose 268 mg/dl (70-99) H 10/05/24 07:23
Calcium 8.7 mg/dl (8.4-10.2) 10/05/24 07:23
Phosphorus 3.6 mg/dl (2.5-4.5) 10/03/24 09:10
Qpi-I-Skkqbfwrvwq Pept 72930 pg/ml 10/02/24 06:10
Albumin 3.5 g/dl (3.5-5.0) 09/30/24 13:32
Physical Exam
-
Vital Signs:
Vital Signs
Temp Pulse Resp BP Pulse Ox
97.6 F 65 18 143/60 97
10/05/24 07:50 10/05/24 07:50 10/05/24 07:50 10/05/24 07:50 10/05/24 07:50
Cardiovascular:: Regular rate and rhythm
Respiratory:: Bilateral: Coarse
Lung Excursion:: Normal
Abdomen:: Nontender and Soft
Bowel Sounds:: Normal
Extremity Edema:: None: Bilateral:
[2024-10-05 11:12] LABS: Glucose - Point of Care 296 mg/dl (70-99)
[2024-10-05] MEDS: NOVOLOG FLEXPEN-MODERATE RESISTANCE 5 UNITS SC (12:46)
--- NOTE | 2024-10-05 13:23 | W.PN.HOSP.TC ---
Today's Communication/Plan
-
continue IV Lasix
monitor BMP
Assessment / Plan
Assessment / Plan
74y F with PMH significant for A-Fib / Flutter, CHF, CKD and DM-II who presents to ED c/o confusion and weakness. Reported globally weak at home for some time. Recently visited at home by her PCP who expressed concerns regarding confusion.
Patient notes that ran out of Lasix about 3-4 weeks and the rest of her medications about 2 weeks ago including her insulin. Reported eating perhaps one meal daily and drinking one bottle of water. She states that she urinates about once per day.
She has liquid, 'chocolate milk' stools that are non-bloody. Patient was seen in the ED here on 09/09 of abdominal pain - but denies any such symptoms at present.
Denied sore throat, cough, chest pain, dyspnea, fevers / chills, N/V or dysuria.
Assessment:
Acute TME resolving/resolved
- AOx3 at this time
- CT head noted no acute abnormalities
- Patient notes that she has been off of all of her prescribed medications for the past 2 weeks at least (ran out of medications per pt)
- home meds restarted
CXR appreciated small right loculated pleural effusion and trace left pleural effusion w/ associate atelectasis
- otherwise stable respiratory status on room air
- incentive spirometer ordered
CAD with hx of CABG
acute on Chronic HFrEF
- continue IV Lasix - requires intensive monitoring of I/Os, weights, lytes. Dry weight 76 kg.
- GDMT: limited by CKD. Continue BB
- Echocardiogram: Normal LV size with moderately reduced systolic function. LVEF 35-40%. Akinesis of the mid to distal septal wall and apex. Right ventricle is moderately dilated with mildly reduced systolic function. Mild mitral regurgitation.
Mild to moderate AR. moderate TR
- CBC Cardiology following
Proteinuria
- likely from uncontrolled DM
- serologies ordered
- Nephrology initially planned 24 hour urine collection, but now deferred due to incontinence.
Chronic Lower Ext Lymphedema
- venous duplex appreciated neg for DVT
ANDI on CKD stage 4
Non-Gapped Metabolic Acidosis resolved
- Cr 1.8 baseline, 2.4 currently
- monitor BMP while on IV Lasix
- Nephrology following
Paroxysmal A-Fib / Flutter
History of Heart Block s/p PPM
- Stable
- cont metoprolol and Eliquis as noted above (renally dosed).
- Monitor on telemetry.
DM-II
- Stable. Moderate hyperglycemia but no anion gap acidosis to suggest DKA, etc.
- Continue basal:bolus insulin regimen and adjust as needed for adequate control.
- SSI coverage as needed for now.
- A1c is 10.8
Anxiety / Depression
- home buspirone and mirtazapine resumed
Ostomy d/t diverticulitis 10 years ago
- No tenderness or other concerning findings on exam.
- Had CT done which was also unremarkable.
- follow up stool studies
- Routine ostomy care.
Wheelchair bound since ostomy as per pt
- PT/OT evals
Hx of Hodgkin's lymphoma 1988
Chronic L ischial stage 4 pressure injury, pink with macerated edges, undermines distally about 2-3cm.
Sacrum with small almost healed stage 3 pressure injury.
R lateral lower leg with intact ecchymotic purple/black blister suspect with break.
Blanchable red heels.
MASD echo/labia area. P
- wound care service following
DVT ppx: Eliquis
Code: DNR/DNI
Anticipated Discharge: > 48 hours
Subjective/Interval History
-
Date of Service: October 05, 2024
no acute complaints
remains on IV Lasix
Objective Data
-
Labs:
Laboratory Results
10/05/24
07:23
WBC 5.5
Hgb 11.5 L
Hct 34.8 L
Plt Count 123 L
Sodium 138
Potassium 4.3
Chloride 110 H
Carbon Dioxide 20 L
BUN 52 H
Creatinine 2.4 H
Glucose 268 H
Calcium 8.7
Vital Signs:
Vital Signs
Temp Pulse Resp BP Pulse Ox
97.9 F 61 18 128/49 96
10/05/24 11:15 10/05/24 11:15 10/05/24 11:15 10/05/24 11:15 10/05/24 11:15
I&O
10/04/24 10/05/24 10/06/24
06:59 06:59 06:59
Intake Total 1260 / 1260 900 / 900
Output Total 25 / 25
Balance 1235 / 1235 900 / 900
Physical Exam
-
General: No Apparent Distress
HEENT: Normocephalic and Atraumatic
Respiratory: Negative Wheezes
Cardiac: Regular Rhythm and S1/S2
GI: Soft
Genito-urinary: No Costovertebral Tender
Neuro: AO x 3
Psych: Calm
Data Reviewed
-
Total Time Spent with Patient (in minutes): 51
Labs: Labs Reviewed by me
--- NOTE | 2024-10-05 14:50 | CM ---
Addendum entered by Salma Robbins RN 10/05/24 16:18:
IMM reviewed.
Original Note:
Reviewed the chart notes and spoke with Emigdio Ramírez from the [facility] ([phone]). Ruel was in to see patient due to a call they received for self care neglect. Discussed with Ruel that the plan is for the patient to go
to [facility] this week for rehab. CM continues to be available to patient/family and is monitoring medical plan for needs at discharge.
Plan: Discharge to [facility] when medically stable. No precert required.
[2024-10-05 15:11] LABS: Glucose - Point of Care 309 mg/dl (70-99)
--- NOTE | 2024-10-05 15:16 | PTCARENOTE ---
[facility] here to assess patient due to an anonymous self neglect report. and CM made aware.
[2024-10-05] MEDS: APRESOLINE 25 MG PO ×2 (15:36→21:38)
[2024-10-05] MEDS: LANTUS 0.2 UNITS SC (17:53)
[2024-10-05] MEDS: NOVOLOG FLEXPEN-HIGH RESISTANCE 10 UNITS SC (17:55)
[2024-10-05 17:56] LABS: Glucose - Point of Care 402 mg/dl (70-99)
[2024-10-05] MEDS: NovoLIN R Flexpen 12 UNITS SC (17:56)
[2024-10-05] MEDS: TYLENOL 650 MG PO (20:41)
[2024-10-05] MEDS: LIPITOR 40 MG PO (21:38)
[2024-10-05] MEDS: REMERON 7.5 MG PO (21:38)
[2024-10-05 21:49] LABS: Glucose - Point of Care 216 mg/dl (70-99)
[2024-10-06 03:31] VITALS: BP 140/59
[2024-10-06 06:00] VITALS: BMI 29.1
[2024-10-06 06:34] LABS: Hematocrit 28.7 % (37.0-47.0); Hemoglobin 9.5 g/dL (12.0-16.0); Mean Corp Hgb Conc. 33.1 g/dL (33.0-37.0); Mean Corpuscular Hgb 28.2 pg (27.0-31.0); Mean Corpuscular Volume 85.2 fL (81.0-99.0); Mean Platelet Volume 11.1 fL (7.4-10.4); Platelet Count 123 10^3/uL (130-400); Red Blood Cell Count 3.37 10^6/uL (4.20-5.40); Red Cell Dist. Width 14.9 % (11.5-14.5); White Blood Cell Count 4.5 10^3/uL (4.8-10.8)
--- NOTE | 2024-10-06 07:01 | W.PN.CD ---
Today's Communication / Plan
-
F/U labs.
Change furosemide to 80 mg PO daily.
If anemia is true, check hemoccult and start anemia workup.
Discharge planning.
Impression / Plan
-
Impression/Plan: 74-year-old woman with history of coronary artery bypass grafting, paroxysmal atrial fibrillation (on apixaban), permanent pacemaker, chronic HFrEF/ischemic cardiomyopathy (EF 30-35%) who presents with altered mental status and
medication misadventure.
#Heart failure with reduced ejection fraction/ICMO
-Acute on chronic.
-LVEF 35-40%.
-Dry weight 76 kg (78 kg on admission).
-Continue metoprolol succinate, hydralazine and isosorbide mononitrate.
-Further GDMT is limited by renal function.
-Echocardiogram 05/22 showed LVEF 30-35%, so slightly improved.
-Exam better today.
-Change furosemide to 80 mg PO daily.
#Anemia
-Acute on chronic.
-Normal MCV.
-Monitor today's labs. I suspect lab error.
-If labs are consistent, check hemoccult given recent increase in apixaban, Fe/B12/Folate/Thiamine. The obvious culprit would be renal function.
#Paroxysmal atrial fibrillation
-Currently in a ventricular paced rhythm.
-Rate/rhythm control with metoprolol/PPM.
-CHADS2-Vasc = 6 (CHF, HTN, Age x1, DM, Vascular Disease, Female Gender).
-Continue apixaban 5 mg BID.
#CAD
-Chronic.
-S/P CABG.
-Continue atorvastatin 40 mg daily.
-No aspirin due to systemic anticoagulation.
-Stable.
#CKD
-Relatively stable; nephrology following.
#Pacemaker
-Stable with normal function.
[employer]: Dr. Solano
Subjective/Interval History:
No acute events.
Weight stable (up 0.5 kg) after a similar dose of furosemide - leading me to believe that yesterday's recorded weight was incorrect.
Creatinine up to 2.4 yesterday. Hbg fell 2 g without obvious source.
Hemodynamics tolerating the addition of hydralazine/isosorbide mononitrate.
Labs pending.
DATA:
CXR, 09/30/2024:
IMPRESSION:
There is a small right loculated pleural effusion as well as a likely trace left pleural effusion with associated atelectasis.
TTE, 05/12/2023:
CONCLUSIONS
Severely reduced left ventricular systolic function. LV ejection fraction is
30-35% by Blue's method of discs.
Akinesis of the inferoseptal, anteroseptal, and apical fowler.
Enlarged right ventricular size. Reduced right ventricular systolic function.
Mild mitral regurgitation.
Mild aortic regurgitation.
Mild aortic regurgitation. Estimated pulmonary artery pressure of 60-65 mmHg.
No significant change since the prior study of 2019.
Physical Exam
Vital Signs/Labs
Vital Signs
Temp Pulse Resp BP Pulse Ox
36.8 C 61 17 140/59 97
10/06/24 03:31 10/06/24 03:31 10/06/24 03:31 10/06/24 03:31 10/06/24 03:31
10/04/24 10/05/24 10/06/24
11:59 11:59 11:59
Actual Weight 78.744 kg 76.566 kg 76.929 kg
10/06/24 06:23
Magnesium 2.1 mg/dl (1.6-2.3) 10/03/24 09:10
10/02/24
06:10
Agk-W-Yxrpigwhwgd Pept 73118
Physical Exam
Constitutional: No acute distress and Comfortable
EENT: Anicteric and Moist mucous membranes
Cardiovascular: Rhythm & rate is regular, Pedal edema is absent, JVD pressure is normal, S1S2 is normal and Murmur/rub/gallop absent
Respiratory: Respiratory effort normal, Lungs clear to auscul., Wheeze Absent, Crackles Absent and Rhonchi Absent
GI: Soft, Distention absent, Flat, Non tender and Normal bowel sounds
Neuro/Psych: AO x 3
Data Reviewed
-
Date of Service: October 06, 2024
Medical Decision Making: Reviewed Test Results, Independent Historian Assessment and Test Interpretation
EKG: Tracing Personally Visualized and interpreted and Report Reviewed by me
Echo: Tracing Personally Visualized and interpreted and Report Reviewed by me
X-Ray/CT/US/MRI/NUC/PET: Image Personally Visualized and interpreted and Report Reviewed by me
Medical Tests (PFT, Pathology etc): Image Personally Visualized and interpreted and Report Reviewed by me
Labs: Labs Reviewed by me
Old Records: Reviewed
[2024-10-06 07:05] LABS: Blood Urea Nitrogen 62 mg/dl (7-17); Calcium 8.3 mg/dl (8.4-10.2); Carbon Dioxide 24 mmol/L (22-30); Chloride 108 mmol/L (98-107); Estimated Creatinine Clearance 20 ml/min; Glucose 204 mg/dl (70-99); Potassium 3.9 mmol/L (3.5-5.1); Sodium 141 mmol/L (135-145); eGFR 19.02
[2024-10-06 07:14] LABS: Complement C3 90 mg/dl (88-165)
[2024-10-06 07:45] VITALS: BP 133/61
[2024-10-06 08:12] LABS: Glucose - Point of Care 239 mg/dl (70-99)
[2024-10-06] MEDS: NovoLIN R Flexpen 12 UNITS SC ×3 (09:22→18:02)
[2024-10-06] MEDS: NOVOLOG FLEXPEN-HIGH RESISTANCE 4 UNITS SC ×2 (09:23→18:03)
--- NOTE | 2024-10-06 09:23 | WOUNDNOTE ---
L ISCHIUM (UNDERMINES UP TO 2.5CM)
--- NOTE | 2024-10-06 09:23 | WOUNDNOTE ---
L ISCHIUM (UNDERMINES UP TO 2.5CM)
--- NOTE | 2024-10-06 09:28 | WOUNDNOTE ---
[facility] RN Note: Patient is on a [employer] air bed and has an air chair cushion. LE edema less. Patient tolerating Tubigrip. L foot wound healed. R lateral lower calf blood blister with slightly less fluid filled. Suspect blister will eventually break.
Current wound care appropriate. L ischium pink. Sacrum same. Dressings changed. Heels off bed with pillow. Patient turned self in bed during wound care. Instructed pressure injury prevention measures. Appetite good. Patient to follow up at [facility].
Will follow as needed.
[2024-10-06] MEDS: IMDUR (EXTENDED RELEASE) 30 MG PO (09:29)
[2024-10-06] MEDS: ELIQUIS 5 MG PO ×2 (09:29→20:13)
[2024-10-06] MEDS: TOPROL XL 50 MG PO (09:30)
[2024-10-06] MEDS: APRESOLINE 25 MG PO ×3 (09:30→22:17)
[2024-10-06] MEDS: PROTONIX 40 MG PO (09:30)
[2024-10-06] MEDS: BUSPAR 5 MG PO ×2 (09:30→20:13)
[2024-10-06] MEDS: LASIX IV (09:31)
[2024-10-06] MEDS: HYDROPHOR 1 APPLIC TOPICAL (09:32)
[2024-10-06 11:35] VITALS: BP 136/56
--- NOTE | 2024-10-06 12:23 | W.PN.NEPH.PH ---
Today's Communication / Plan
-
CXR
Assessment/Plan
-
Assessment
CKD4 (1.8)
ANDI
diabetes mellitus type 2
Confusion, improved
Heart failure reduced ejection fractionEF 30-35%
Paroxysmal atrial fibrillation
Ileostomy
Proteinuria
Weight loss, decreased appetite
Suspected congestive heart failure decompensation
Plan
hold lasix
follow BMP
check serologies
check CXR
-
-
Date of Service: October 06, 2024
CC / HPI / ROS
-
Chief Complaint:
CKD stage IIIb
History of Present Illness:
ANDI/Cr up to 2.6
Hemodynamically stable
lasix on hold for ANDI
weight down
Review of Systems:
no SOB
No chest pain reported
edema better
Labs
-
Labs:
WBC 4.5 10^3/uL (4.8-10.8) L 10/06/24 06:23
RBC 3.37 10^6/uL (4.20-5.40) L 10/06/24 06:23
Hgb 9.5 g/dL (12.0-16.0) L 10/06/24 06:23
Hct 28.7 % (37.0-47.0) L 10/06/24 06:23
Plt Count 123 10^3/uL (130-400) L 10/06/24 06:23
Sodium 141 mmol/L (135-145) 10/06/24 06:23
Potassium 3.9 mmol/L (3.5-5.1) 10/06/24 06:23
Chloride 108 mmol/L (98-107) H 10/06/24 06:23
Carbon Dioxide 24 mmol/L (22-30) 10/06/24 06:23
BUN 62 mg/dl (7-17) H 10/06/24 06:23
Creatinine 2.6 mg/dL (0.6-1.0) H 10/06/24 06:23
eGFR 19.02 10/06/24 06:23
Glucose 204 mg/dl (70-99) H 10/06/24 06:23
Calcium 8.3 mg/dl (8.4-10.2) L 10/06/24 06:23
Phosphorus 3.6 mg/dl (2.5-4.5) 10/03/24 09:10
Zqx-F-Qplbdakyfba Pept 42353 pg/ml 10/02/24 06:10
Albumin 3.5 g/dl (3.5-5.0) 09/30/24 13:32
Physical Exam
-
Vital Signs:
Vital Signs
Temp Pulse Resp BP Pulse Ox
97.9 F 63 16 136/56 100
10/06/24 11:35 10/06/24 11:35 10/06/24 11:35 10/06/24 11:35 10/06/24 11:35
Cardiovascular:: Regular rate and rhythm
Respiratory:: Bilateral: Coarse
Lung Excursion:: Normal
Abdomen:: Nontender and Soft
Bowel Sounds:: Normal
Extremity Edema:: +1: Bilateral:
[2024-10-06 12:28] LABS: Glucose - Point of Care 269 mg/dl (70-99)
[2024-10-06] MEDS: NOVOLOG FLEXPEN-HIGH RESISTANCE 7 UNITS SC (12:57)
[2024-10-06 13:23] LABS: Iron 38 ug/dl (37-170)
[2024-10-06 13:32] LABS: Percent Saturation 14 % (20-50); Total Iron Binding Capacity 257 ug/dl (265-497)
--- NOTE | 2024-10-06 13:51 | CM ---
Reviewed the chart notes. Lasix transitioned to PO. CM continues to be available to patient/family and is monitoring medical plan for needs at discharge.
Plan: Discharge to [facility] when medically stable. No precert required.
[2024-10-06 14:19] LABS: Ferritin 14.7 ng/ml (11.1-264.0)
--- NOTE | 2024-10-06 14:38 | W.PN.HOSP.TC ---
Today's Communication/Plan
-
anemia workup, IV Iron added
holding Lasix follow BMP
Assessment / Plan
Assessment / Plan
74y F with PMH significant for A-Fib / Flutter, CHF, CKD and DM-II who presents to ED c/o confusion and weakness. Reported globally weak at home for some time. Recently visited at home by her PCP who expressed concerns regarding confusion.
Patient notes that ran out of Lasix about 3-4 weeks and the rest of her medications about 2 weeks ago including her insulin. Reported eating perhaps one meal daily and drinking one bottle of water. She states that she urinates about once per day.
She has liquid, 'chocolate milk' stools that are non-bloody. Patient was seen in the ED here on 09/09 of abdominal pain - but denies any such symptoms at present.
Denied sore throat, cough, chest pain, dyspnea, fevers / chills, N/V or dysuria.
Assessment:
Acute TME resolving/resolved
- AOx3 at this time
- CT head noted no acute abnormalities
- Patient notes that she has been off of all of her prescribed medications for the past 2 weeks at least (ran out of medications per pt)
- home meds restarted
CXR appreciated small right loculated pleural effusion and trace left pleural effusion w/ associate atelectasis
- otherwise stable respiratory status on room air
- incentive spirometer ordered
- repeat CXR: Small bilateral pleural effusions. Probable loculated fluid in the right minor fissure.
CAD with hx of CABG
acute on Chronic HFrEF
- Lasix held
- GDMT: limited by CKD. Continue BB/Hydralazine/Imdur
- Echocardiogram: Normal LV size with moderately reduced systolic function. LVEF 35-40%. Akinesis of the mid to distal septal wall and apex. Right ventricle is moderately dilated with mildly reduced systolic function. Mild mitral regurgitation. Mild
to moderate AR. moderate TR.
- CBC Cardiology following
Proteinuria
- likely from uncontrolled DM
- serologies ordered
- Nephrology initially planned 24 hour urine collection, but now deferred due to incontinence.
Chronic Lower Ext Lymphedema
- venous duplex appreciated neg for DVT
ANDI on CKD stage 4
Non-Gapped Metabolic Acidosis resolved
- Cr 1.8 baseline, 2.6 currently
- monitor BMP
- Nephrology following
Paroxysmal A-Fib / Flutter
History of Heart Block s/p PPM
- Stable
- cont metoprolol and Eliquis as noted above (renally dosed).
- Monitor on telemetry.
DM-II
- Stable. Moderate hyperglycemia but no anion gap acidosis to suggest DKA, etc.
- Continue basal:bolus insulin regimen and adjust as needed for adequate control.
- SSI coverage as needed for now.
- A1c is 10.8
Anxiety / Depression
- home buspirone and mirtazapine resumed
Ostomy d/t diverticulitis 10 years ago
- No tenderness or other concerning findings on exam.
- Had CT done which was also unremarkable.
- follow up stool studies
- Routine ostomy care.
Wheelchair bound since ostomy as per pt
- PT/OT evals
Hx of Hodgkin's lymphoma 1988
Chronic L ischial stage 4 pressure injury, pink with macerated edges, undermines distally about 2-3cm.
Sacrum with small almost healed stage 3 pressure injury.
R lateral lower leg with intact ecchymotic purple/black blister suspect with break.
Blanchable red heels.
MASD echo/labia area. P
- wound care service following
acute Anemia, unclear cause
- with low level iron deficiency, start IV iron
- hemetest stools
- await further labs
DVT ppx: Eliquis
Code: DNR/DNI
Anticipated Discharge: 24 - 48 hours
Subjective/Interval History
-
Date of Service: October 06, 2024
denies any new complaints
Objective Data
-
Labs:
Laboratory Results
10/06/24
06:23
WBC 4.5 L
Hgb 9.5 L
Hct 28.7 L
Plt Count 123 L
Sodium 141
Potassium 3.9
Chloride 108 H
Carbon Dioxide 24
BUN 62 H
Creatinine 2.6 H
Glucose 204 H
Calcium 8.3 L
Vital Signs:
Vital Signs
Temp Pulse Resp BP Pulse Ox
97.9 F 63 16 136/56 100
10/06/24 11:35 10/06/24 11:35 10/06/24 11:35 10/06/24 11:35 10/06/24 11:35
I&O
10/05/24 10/06/24 10/07/24
06:59 06:59 06:59
Intake Total 900 / 900 720 / 720
Balance 900 / 900 720 / 720
Physical Exam
-
General: No Apparent Distress
HEENT: Normocephalic and Atraumatic
Respiratory: Negative Wheezes
Cardiac: Regular Rhythm and S1/S2
GI: Soft
Genito-urinary: No Costovertebral Tender
Musculoskeletal: No Edema
Neuro: AO x 3
Hematologic / Lymphatic: No Lymphadenopathy
Psych: Calm
Data Reviewed
-
Total Time Spent with Patient (in minutes): 41
Labs: Labs Reviewed by me
[2024-10-06 14:50] LABS: Folate 4.6 ng/ml (2.76-20); Vitamin B12 352 pg/ml (239-931)
[2024-10-06] MEDS: FERRLECIT 110 MG IV (15:15)
[2024-10-06 15:45] VITALS: BP 130/5
--- NOTE | 2024-10-06 15:47 | PN.CDI ---
CDI
- -
CDI:
Physician Documentation Request
Admit Date: 09/30/24 20:07
Dear Doctor Long,
Clinical Indicators:
Patient admitted with acute TME.
10/06 PN, 'acute Anemia'
WBC, RBC, Plt counts:
10/01/24 10/06/24
06:52 06:23
WBC 3.7 L 4.5 L
RBC 3.67 L 3.37 L
Plt Count 124 L 123 L
Based on the above, could you clarify in the progress notes, the appropriate diagnosis, if significant, that supports the above lab abnormalities and additional evaluation & monitoring:
Pancytopenia
Anemia only
Other, please specify
Use of terms such as suspected, likely, concern for, or probable (associated with a specific diagnosis that is being evaluated, monitored, or treated as if it exists) are acceptable and can be coded in the inpatient setting, when documented at the
time of discharge.
Thank you,
Tracie Neal CLINICAL SUPPORT MANAGER
CDI Specialist
available via tiger text
Please use your independent medical judgment in providing your response.
[2024-10-06 17:52] LABS: Glucose - Point of Care 241 mg/dl (70-99)
[2024-10-06] MEDS: LANTUS 0.2 UNITS SC (18:25)
[2024-10-06 19:19] VITALS: BP 119/66
[2024-10-06 22:08] LABS: Glucose - Point of Care 211 mg/dl (70-99)
[2024-10-06] MEDS: LIPITOR 40 MG PO (22:17)
[2024-10-06] MEDS: REMERON 7.5 MG PO (22:17)
[2024-10-06 23:25] VITALS: BP 130/54
[2024-10-07 03:39] VITALS: BP 130/50
[2024-10-07 06:00] VITALS: BMI 28.7
[2024-10-07 06:57] LABS: Hemoglobin 10.2 g/dL (12.0-16.0); Mean Corp Hgb Conc. 32.9 g/dL (33.0-37.0); Mean Corpuscular Hgb 28.3 pg (27.0-31.0); Mean Corpuscular Volume 86.1 fL (81.0-99.0); Mean Platelet Volume 10.9 fL (7.4-10.4); Platelet Count 125 10^3/uL (130-400); Red Cell Dist. Width 15.1 % (11.5-14.5); White Blood Cell Count 4.5 10^3/uL (4.8-10.8)
--- NOTE | 2024-10-07 07:28 | W.PN.CD ---
Today's Communication / Plan
-
F/U labs.
PO furosemide dose based on labs.
Discharge planning - skilled rehab.
Impression / Plan
-
Impression/Plan: 74-year-old woman with history of coronary artery bypass grafting, paroxysmal atrial fibrillation (on apixaban), permanent pacemaker, chronic HFrEF/ischemic cardiomyopathy (EF 30-35%) who presents with altered mental status and
medication misadventure.
#Heart failure with reduced ejection fraction/ICMO
-Acute on chronic.
-LVEF 35-40%.
-Dry weight 76 kg (78 kg on admission).
-Continue metoprolol succinate, hydralazine and isosorbide mononitrate.
-Further GDMT is limited by renal function.
-Echocardiogram 05/22 showed LVEF 30-35%, so slightly improved.
-Exam better today.
-Re-initiate furosemide based off of labs/renal function and weight gain.
#Anemia
-Acute on chronic.
-Fe deficieny and normal MCV. Normal B12/folate.
-Continue Fe supplementation.
#Paroxysmal atrial fibrillation
-Currently in a ventricular paced rhythm.
-Rate/rhythm control with metoprolol/PPM.
-CHADS2-Vasc = 6 (CHF, HTN, Age x1, DM, Vascular Disease, Female Gender).
-Continue apixaban 5 mg BID.
#CAD
-Chronic.
-S/P CABG.
-Continue atorvastatin 40 mg daily.
-No aspirin due to systemic anticoagulation.
-Stable.
#CKD
-Relatively stable; nephrology following.
#Pacemaker
-Stable with normal function.
#Deconditioning
-Chronic.
-PT/OT involved.
#Dispo
-PT recommending skilled rehab.
[employer]: Dr. Solano
Subjective/Interval History:
No acute events.
No documented weight today.
Furosemide held yesterday after incremental rise in creatinine.
Iron started for Fe deficiency.
Labs pending.
DATA:
CXR, 09/30/2024:
IMPRESSION:
There is a small right loculated pleural effusion as well as a likely trace left pleural effusion with associated atelectasis.
TTE, 05/12/2023:
CONCLUSIONS
Severely reduced left ventricular systolic function. LV ejection fraction is
30-35% by Blue's method of discs.
Akinesis of the inferoseptal, anteroseptal, and apical fowler.
Enlarged right ventricular size. Reduced right ventricular systolic function.
Mild mitral regurgitation.
Mild aortic regurgitation.
Mild aortic regurgitation. Estimated pulmonary artery pressure of 60-65 mmHg.
No significant change since the prior study of 2019.
Physical Exam
Vital Signs/Labs
Vital Signs
Temp Pulse Resp BP Pulse Ox
36.3 C 61 18 130/50 93
10/07/24 03:39 10/07/24 03:39 10/07/24 03:39 10/07/24 03:39 10/07/24 03:39
10/05/24 10/06/24 10/07/24
11:59 11:59 11:59
Actual Weight 76.566 kg 76.929 kg 75.795 kg
10/07/24 06:06
Magnesium 2.1 mg/dl (1.6-2.3) 10/03/24 09:10
10/02/24
06:10
Kwr-K-Bkomytmnqiy Pept 32468
Physical Exam
Constitutional: No acute distress and Comfortable
EENT: Anicteric and Moist mucous membranes
Cardiovascular: Rhythm & rate is regular, Pedal edema is absent, JVD pressure is normal, S1S2 is normal and Murmur/rub/gallop absent
Respiratory: Respiratory effort normal, Lungs clear to auscul., Wheeze Absent, Crackles Absent and Rhonchi Absent
GI: Soft, Distention absent, Flat, Non tender and Normal bowel sounds
Neuro/Psych: AO x 3
Data Reviewed
-
Date of Service: October 07, 2024
Medical Decision Making: Reviewed Test Results, Independent Historian Assessment and Test Interpretation
EKG: Tracing Personally Visualized and interpreted and Report Reviewed by me
Echo: Tracing Personally Visualized and interpreted and Report Reviewed by me
X-Ray/CT/US/MRI/NUC/PET: Image Personally Visualized and interpreted and Report Reviewed by me
Labs: Labs Reviewed by me
Old Records: Reviewed
[2024-10-07 07:37] VITALS: BP 135/77
[2024-10-07 07:47] LABS: Glucose - Point of Care 173 mg/dl (70-99)
[2024-10-07 09:30] LABS: Blood Urea Nitrogen 69 mg/dl (7-17); Calcium 8.7 mg/dl (8.4-10.2); Carbon Dioxide 23 mmol/L (22-30); Chloride 108 mmol/L (98-107); Estimated Creatinine Clearance 19 ml/min; Glucose 164 mg/dl (70-99); Potassium 4.2 mmol/L (3.5-5.1); Sodium 141 mmol/L (135-145); eGFR 19.02
--- NOTE | 2024-10-07 09:46 | W.PN.NEPH.PH ---
Today's Communication / Plan
-
Pending serologies
Diuretics held
Follow-up BMP in a.m.
Assessment/Plan
-
Assessment
CKD4 (1.8)
ANDI
diabetes mellitus type 2
Confusion, improved
Heart failure reduced ejection fractionEF 30-35%
Paroxysmal atrial fibrillation
Ileostomy
Proteinuria
Weight loss, decreased appetite
Suspected congestive heart failure decompensation
Plan
holding lasix, creatinine at 2.6, uop not recorded,weights unchanged
follow BMP
checked serologies:pending
check CXR: effusion s
-
-
Date of Service: October 07, 2024
CC / HPI / ROS
-
Chief Complaint:
CKD stage IIIb
History of Present Illness:
ANDI/Cr up to 2.6
Hemodynamically stable
lasix on hold for ANDI
Review of Systems:
no SOB
No chest pain reported
Weight stable
edema better
Labs
-
Labs:
WBC 4.5 10^3/uL (4.8-10.8) L 10/07/24 06:06
RBC 3.60 10^6/uL (4.20-5.40) L 10/07/24 06:06
Hgb 10.2 g/dL (12.0-16.0) L 10/07/24 06:06
Hct 31.0 % (37.0-47.0) L 10/07/24 06:06
Plt Count 125 10^3/uL (130-400) L 10/07/24 06:06
Sodium 141 mmol/L (135-145) 10/07/24 07:52
Potassium 4.2 mmol/L (3.5-5.1) 10/07/24 07:52
Chloride 108 mmol/L (98-107) H 10/07/24 07:52
Carbon Dioxide 23 mmol/L (22-30) 10/07/24 07:52
BUN 69 mg/dl (7-17) H 10/07/24 07:52
Creatinine 2.6 mg/dL (0.6-1.0) H 10/07/24 07:52
eGFR 19.02 10/07/24 07:52
Glucose 164 mg/dl (70-99) H 10/07/24 07:52
Calcium 8.7 mg/dl (8.4-10.2) 10/07/24 07:52
Phosphorus 3.6 mg/dl (2.5-4.5) 10/03/24 09:10
Ixw-W-Asspgnyzceq Pept 54565 pg/ml 10/02/24 06:10
Albumin 3.5 g/dl (3.5-5.0) 09/30/24 13:32
Physical Exam
-
Vital Signs:
Vital Signs
Temp Pulse Resp BP Pulse Ox
97.5 F 66 20 135/77 98
10/07/24 07:37 10/07/24 07:37 10/07/24 07:37 10/07/24 07:37 10/07/24 07:37
Cardiovascular:: Regular rate and rhythm
Respiratory:: Bilateral: Coarse
Lung Excursion:: Normal
Abdomen:: Nontender and Soft
Bowel Sounds:: Normal
Extremity Edema:: +1: Bilateral:
Juan Catheter: No
[2024-10-07] MEDS: IMDUR (EXTENDED RELEASE) 30 MG PO (10:33)
[2024-10-07] MEDS: VITAMIN B-12 1000 MCG PO (10:33)
[2024-10-07] MEDS: BUSPAR 5 MG PO ×2 (10:33→19:41)
[2024-10-07] MEDS: PROTONIX 40 MG PO (10:33)
[2024-10-07] MEDS: ELIQUIS 5 MG PO ×2 (10:34→19:41)
[2024-10-07] MEDS: APRESOLINE 25 MG PO ×2 (10:34→17:24)
[2024-10-07] MEDS: TOPROL XL 50 MG PO (10:34)
[2024-10-07] MEDS: HYDROPHOR 1 APPLIC TOPICAL (10:34)
[2024-10-07] MEDS: NOVOLOG FLEXPEN-HIGH RESISTANCE 2 UNITS SC (10:34)
[2024-10-07] MEDS: NovoLIN R Flexpen 12 UNITS SC ×3 (10:35→17:24)
[2024-10-07 11:10] VITALS: BP 143/58
[2024-10-07 11:43] LABS: Glucose - Point of Care 207 mg/dl (70-99)
--- NOTE | 2024-10-07 12:28 | W.PN.HOSP.TC ---
Today's Communication/Plan
-
dc to SNF today
Assessment / Plan
Assessment / Plan
74y F with PMH significant for A-Fib / Flutter, CHF, CKD and DM-II who presents to ED c/o confusion and weakness. Reported globally weak at home for some time. Recently visited at home by her PCP who expressed concerns regarding confusion.
Patient notes that ran out of Lasix about 3-4 weeks and the rest of her medications about 2 weeks ago including her insulin. Reported eating perhaps one meal daily and drinking one bottle of water. She states that she urinates about once per day.
She has liquid, 'chocolate milk' stools that are non-bloody. Patient was seen in the ED here on 09/09 of abdominal pain - but denies any such symptoms at present.
Denied sore throat, cough, chest pain, dyspnea, fevers / chills, N/V or dysuria.
Assessment:
Acute TME resolving/resolved
- AOx3 at this time
- CT head noted no acute abnormalities
- Patient notes that she has been off of all of her prescribed medications for the past 2 weeks at least (ran out of medications per pt)
- home meds restarted
CXR appreciated small right loculated pleural effusion and trace left pleural effusion w/ associate atelectasis
- otherwise stable respiratory status on room air
- incentive spirometer ordered
- repeat CXR: Small bilateral pleural effusions. Probable loculated fluid in the right minor fissure.
CAD with hx of CABG
acute on Chronic HFrEF
- Lasix resumption ok'd by Nephrology at 40mg daily. repeat BMP in 3-5 days
- GDMT: limited by CKD. Continue BB/Hydralazine/Imdur
- Echocardiogram: Normal LV size with moderately reduced systolic function. LVEF 35-40%. Akinesis of the mid to distal septal wall and apex. Right ventricle is moderately dilated with mildly reduced systolic function. Mild mitral regurgitation. Mild
to moderate AR. moderate TR.
- CBC Cardiology following
Proteinuria
- likely from uncontrolled DM
- serologies ordered
- Nephrology initially planned 24 hour urine collection, but now deferred due to incontinence.
Chronic Lower Ext Lymphedema
- venous duplex appreciated neg for DVT
ANDI on CKD stage 4
Non-Gapped Metabolic Acidosis resolved
- Cr 1.8 baseline, 2.6 currently
- monitor BMP
- Nephrology following; ok'd for DC today. Lasix resumption ok'd by Nephrology at 40mg daily. repeat BMP in 3-5 days
Paroxysmal A-Fib / Flutter
History of Heart Block s/p PPM
- Stable
- cont metoprolol and Eliquis as noted above (renally dosed).
- Monitor on telemetry.
DM-II
- Stable. Moderate hyperglycemia but no anion gap acidosis to suggest DKA, etc.
- Continue basal:bolus insulin regimen and adjust as needed for adequate control.
- SSI coverage as needed for now.
- A1c is 10.8
Anxiety / Depression
- home buspirone and mirtazapine resumed
Ostomy d/t diverticulitis 10 years ago
- No tenderness or other concerning findings on exam.
- Had CT done which was also unremarkable.
- follow up stool studies
- Routine ostomy care.
Wheelchair bound since ostomy as per pt
- PT/OT evals
Hx of Hodgkin's lymphoma 1988
Chronic L ischial stage 4 pressure injury, pink with macerated edges, undermines distally about 2-3cm.
Sacrum with small almost healed stage 3 pressure injury.
R lateral lower leg with intact ecchymotic purple/black blister suspect with break.
Blanchable red heels.
MASD echo/labia area. P
- wound care service following
acute Anemia, unclear cause
Pancytopenia
- with low level iron deficiency, s/p IV Iron and oral iron at discharge
- B12 lower normal, B12 supplement started
DVT ppx: Eliquis
Code: DNR/DNI
More than 30 minutes spent in discharge including
Final examination of the patient
Summarizing hospital stay
Instructions for continuing care to all relevant caregivers
Preparation of discharge records, prescriptions, and referral forms
Total time spent (in minutes): 41
Anticipated Discharge: Today
Subjective/Interval History
-
Date of Service: October 07, 2024
no complaints
Objective Data
-
Labs:
Laboratory Results
10/07/24 10/07/24
06:06 07:52
WBC 4.5 L
Hgb 10.2 L
Hct 31.0 L
Plt Count 125 L
Sodium Cancelled 141
Potassium Cancelled 4.2
Chloride Cancelled 108 H
Carbon Dioxide Cancelled 23
BUN Cancelled 69 H
Creatinine Cancelled 2.6 H
Glucose Cancelled 164 H
Calcium Cancelled 8.7
Vital Signs:
Vital Signs
Temp Pulse Resp BP Pulse Ox
98.4 F 69 16 143/58 95
10/07/24 11:10 10/07/24 11:10 10/07/24 11:10 10/07/24 11:10 10/07/24 11:10
I&O
10/06/24 10/07/24 10/08/24
06:59 06:59 06:59
Intake Total 720 / 720 780 / 780
Balance 720 / 720 780 / 780
Physical Exam
-
General: No Apparent Distress
HEENT: Normocephalic and Atraumatic
Respiratory: Negative Wheezes
Cardiac: Regular Rhythm and S1/S2
GI: Soft
Genito-urinary: No Costovertebral Tender
Neuro: AO x 3
Hematologic / Lymphatic: No Lymphadenopathy
Psych: Calm
Data Reviewed
-
Total Time Spent with Patient (in minutes): 41
Labs: Labs Reviewed by me
[2024-10-07] MEDS: FERRLECIT 110 MG IV (13:23)
[2024-10-07] MEDS: NOVOLOG FLEXPEN-HIGH RESISTANCE 4 UNITS SC ×2 (13:23→17:25)
[2024-10-07] MEDS: LASIX 40 MG PO (13:23)
--- NOTE | 2024-10-07 14:05 | CM ---
Addendum entered by Salma Robbins RN 10/07/24 15:45:
CM spoke with the patient at the bedside and her son on the phone. Patient's wheelchair will be kept here for son to pickup this weekend. RN updated.
Original Note:
Reviewed the chart notes. Patient to be discharged today. CM continues to be available to patient/family and is monitoring medical plan for needs at discharge.
Plan: Discharge to [facility].
Call report to: [phone]
Fax report to: [phone]
Medical necessity and transport forms on chart.
--- NOTE | 2024-10-07 15:03 | W.DS.TRANS ---
DC Summary - Brass Buffer
-
Discharge Instructions:
Sleep Apnea Risk Low
Discharge Diagnosis/Procedures TME (Resolved), acute CHF and ANDI, improving.
back on Lasix
Diet Diabetic, Carb Controlled,Restrict fluids to 48
oz
Activity As tolerated
Blood Work BMP in 3-5 days
Other Services VN
Instructions:
Stand-Alone Forms:
Changes to Home Medications: No
Discharge Medications:
DC Medications w/original date entered in [facility]
metoprolol succinate 50 mg tablet,extended release 24 hr 50 mg PO DAILY Heart disease/condition 12/03/20
atorvastatin 40 mg tablet (Lipitor) 40 mg PO HS High cholesterol 02/18/23
buspirone 5 mg tablet 5 mg PO BID Mental Health/Anxiety 02/18/23
mirtazapine 7.5 mg tablet 7.5 mg PO HS Mental Health/Anxiety 02/18/23
omeprazole 40 mg capsule,delayed release 40 mg PO DAILY #30 caps 09/09/24
acetaminophen 500 mg tablet (Tylenol Extra Strength) 1,000 mg PO Q6HPRN PRN mild pain 09/30/24
ascorbic acid (vitamin C) 500 mg tablet (Vitamin C) 500 mg PO DAILY Supplement 09/30/24
Insulin Glargine Lantus [Lantus] 20 units As Directed mls/hr SC QPM 10/07/24
apixaban 5 mg tablet (Eliquis) 5 mg PO BID #60 tabs 10/07/24
cyanocobalamin (vitamin B-12) 1,000 mcg tablet 1,000 mcg PO DAILY #30 tabs 10/07/24
ferrous sulfate 325 mg (65 mg iron) tablet 325 mg PO DAILY #30 tabs 10/07/24
furosemide 40 mg tablet 40 mg PO DAILY #30 tabs 10/07/24
hydralazine 25 mg tablet 25 mg PO TID #90 tabs 10/07/24
insulin regular human 100 unit/mL (3 mL) subcutaneous pen (Novolin R FlexPen) 12 unit (0.12 mL) SC AC #15 mL 10/07/24
isosorbide mononitrate 30 mg tablet,extended release 24 hr 30 mg PO DAILY #30 tabs 10/07/24
Home Medication Changes
Pending Results: No
Total time spent discharging patient (in min): 41
[2024-10-07 15:46] VITALS: BP 123/50
[2024-10-07 17:11] LABS: Glucose - Point of Care 211 mg/dl (70-99)
[2024-10-07] MEDS: FLUAD (65 yr+) 2024-2025 FORMULA 0.5 ML IM (17:21)
[2024-10-07] MEDS: LANTUS 0.2 UNITS SC (17:26)
[2024-10-07 18:52] VITALS: BP 125/49
[2024-10-07 19:23] VITALS: BP 130/53
[2024-10-08 01:58] LABS: ANA, IgG Reflex to HEp-2 None Detected (None Detected)
[2024-10-09 00:11] LABS: Myeloperoxidase Antibody 0 AU/mL (0-19); Serine Protease-3, IgG 0 AU/mL (0-19)
== END 2024-10-07 20:44 | DRG 91 ==
LOC: 2 NORTH 20:07
PROVIDERS: Internal Medicine; Nurse Practitioner; ADMITTING PHYSICIAN Hospitalist; ATTENDING PHYSICIAN Internal Medicine; CONSULT PHYSICIAN Specialist; CONSULT PHYSICIAN Student in an Organized Health Care Education/Training Program; EMERGENCY PHYSICIAN Student in an Organized Health Care Education/Training Program
DX: G92.8 Other toxic encephalopathy (principal); I50.23 Acute on chronic systolic (congestive) heart failure; L89.153 Pressure ulcer of sacral region, stage 3; L89.324 Pressure ulcer of left buttock, stage 4; I13.0 Hypertensive heart and chronic kidney disease with heart failure and stage 1 through stage 4 chronic kidney disease, or unspecified chronic kidney disease; D61.818 Other pancytopenia; E87.20 Acidosis, unspecified; N18.4 Chronic kidney disease, stage 4 (severe); N17.9 Acute kidney failure, unspecified; I48.92 Unspecified atrial flutter; J98.11 Atelectasis; J91.8 Pleural effusion in other conditions classified elsewhere; I47.20 Ventricular tachycardia, unspecified; Z66 Do not resuscitate; I27.20 Pulmonary hypertension, unspecified; D63.8 Anemia in other chronic diseases classified elsewhere; E11.22 Type 2 diabetes mellitus with diabetic chronic kidney disease; E11.610 Type 2 diabetes mellitus with diabetic neuropathic arthropathy; E11.65 Type 2 diabetes mellitus with hyperglycemia; E66.9 Obesity, unspecified; F32.A Depression, unspecified; I25.10 Atherosclerotic heart disease of native coronary artery without angina pectoris; Z95.1 Presence of aortocoronary bypass graft; Z79.01 Long term (current) use of anticoagulants; I48.0 Paroxysmal atrial fibrillation; Z95.0 Presence of cardiac pacemaker; E61.1 Iron deficiency; E78.00 Pure hypercholesterolemia, unspecified; F41.9 Anxiety disorder, unspecified; I25.5 Ischemic cardiomyopathy; I89.0 Lymphedema, not elsewhere classified; K21.9 Gastro-esophageal reflux disease without esophagitis; I45.9 Conduction disorder, unspecified; T50.1X6A Underdosing of loop [high-ceiling] diuretics, initial encounter; T38.3X6A Underdosing of insulin and oral hypoglycemic [antidiabetic] drugs, initial encounter; Z91.128 Patient's intentional underdosing of medication regimen for other reason; Z68.29 Body mass index [BMI] 29.0-29.9, adult; Z79.4 Long term (current) use of insulin; Z79.899 Other long term (current) drug therapy; Z88.1 Allergy status to other antibiotic agents; Z88.2 Allergy status to sulfonamides; Z88.8 Allergy status to other drugs, medicaments and biological substances; Z93.3 Colostomy status; Z99.3 Dependence on wheelchair; Z87.19 Personal history of other diseases of the digestive system; Z90.49 Acquired absence of other specified parts of digestive tract; Z85.71 Personal history of Hodgkin lymphoma; Z87.891 Personal history of nicotine dependence; Z91.041 Radiographic dye allergy status
CPT/HCPCS: 51701; 70450; 71046; 80048; 80053; 81003; 81015; 82570; 82607; 82728; 82746; 82947; 82962; 83036; 83516; 83540; 83550; 83735; 83880; 84100; 84155; 84156; 84165; 84443; 85025; 85027; 86038; 86160; 87045; 87046; 87086; 87427; 87502; 87811; 89055; 93005; 93306; 93970; 96374; 96375; 97163; 97167; 97530; 97535; 99285; J2916; Q9950

== ENCOUNTER 2024-11-02 13:59 | Inpatient (IN) | payer MEDICARE, SELFPAY ==
[2024-11-02] VITALS (8 sets, daily range): BP systolic 111–132; BP diastolic 48–72; BMI 31.9; BMI 30.4
--- NOTE | 2024-11-02 10:36 | ED.GENMED ---
ED Provider Triage
<Leonides Vazquez PA-C - Last Filed: 11/02/24 10:38>
-
Patient seen by provider in Triage?: Seen in Triage
74-year-old female brought here by EMS from [facility]. She has been having weakness and fatigue over the past week with decreased appetite and intake. Outpatient labs demonstrated abnormal kidney function and she was sent here. She denies any
new pain. There has been no vomiting or fever.
Vital signs stable at triage appears nontoxic. Will start with basic labs. Reviewed labs from outpatient which showed a creatinine of 4.7 and hemoglobin of 9.9. Type and screen pending as well. On eliquis. No dark stools noted.
Patient had medical screening performed at triage. She warrants further medical evaluation
History of Present Illness
<Leonides Vazquez PA-C - Last Filed: 11/02/24 10:38>
General
Chief Complaint: Abnormal Lab Value
Time Seen by Provider: 11/02/24 12:19
<Jose Raul Flores PA-C - Last Filed: 11/02/24 14:53>
General
Source: patient and records
History of Present Illness
History of Present Illness:
74-year-old female with past medical history of CAD status postacute [place], CHF, status post pacemaker placement, paroxysmal atrial fibrillation, CKD, noncompliant diabetic presenting to the emergency department for evaluation after her prison
noted acute on chronic worsening kidney disease. Patient reportedly has been feeling generally unwell over the last few weeks and had labs done a couple of days ago which showed worsening renal failure. Patient states that she has not had much of
an appetite over the last week and has had diminished p.o. intake to solids but still taking in liquids. Denies any nausea, vomiting, bowel changes or urinary symptoms. She also denies any abdominal pain, chest pain, shortness of breath,
exertional dyspnea. She endorses bilateral lower extremity edema and also states her left extremity seems little bit more swollen than usual as well.
Past History
<Leonides Vazquez PA-C - Last Filed: 11/02/24 10:38>
Past History
ED Past Medical History: CAD, Cancer (Hodgkin's lymphoma 1988), CHF, HTN, Hypercholesterolemia and IDDM
ED Past Surgical History: Cardiac (Bypass surgery) and Orthopedic (Left great toe amputation)
Social History
Tobacco: Non-smoker
Alcohol: None
Drug: None
Living: with family
Employment: Not employed
Family History
Family History: Unable to obtain
<Jose Raul Flores PA-C - Last Filed: 11/02/24 14:53>
Past History
ED Past Medical History: Arrthythmia and [place]
Social History
Personal: Single
Review of Systems
<Jose Raul Flores PA-C - Last Filed: 11/02/24 14:53>
Review of Systems
All Other Systems: ROS reviewed and negative except as documented in HPI and ROS
Phy Exam
<Jose Raul Flores PA-C - Last Filed: 11/02/24 14:53>
Physical Exam
Physical Exam:
GENERAL: Alert , appears older than stated age, non-toxic
HEAD: NCAT
EYE: clear conjunctiva
NECK: Supple
ENT: o/p clr, mmm.
CARDIAC: Regular rate and rhythm, systolic murmur .
LUNGS: Clear breath sounds bilaterally, no acute respiratory distress, no wheezes/rales/rhonchi
ABDOMEN: Soft, without focal tenderness, no r/g, no cvat, ostomy left mid abdomen with brown stool
NEUROLOGICAL: Alert and oriented
SKIN: Warm and dry, skin intact.
MUSCULOSKELETAL: moderate 1+ edema to b/l lower legs, mild edema to LUE compared to right, well perfused.
PSYCH: Normal and appropriate interaction.
Scores
<Jose Raul Flores PA-C - Last Filed: 11/02/24 14:53>
Heart Failure Risk
Heart Failure Risk Score: Yes
History of Stroke or TIA: No
History of intubation for respiratory distress: No
Heart rate on ED arrival >/= 110: No
SaO2 <90% on arrival on room air: No
HR >/=110 during 3min walk test (or too ill to perform test): Yes
ECG has acute ischemic changes: No
Urea >/=12mmol/L (BUN 33.6mg/dL): Yes
Serum CO2>/=35mmol/L: No
Troponin I or T elevated to [place] Level (0.4mg/dL): No
NT-proBNP >/=5,000ng/L (5,000pg/ml): Yes
HF Risk Score: 4
Admission Status: HIGH RISK 26.1% Consider SNF treatment or admission to hospital
Heart Score for Chest Pain Patients
STEMI patient?: Not applicable
Withdrawal Assessment of Alcohol
Withdrawal Assessment Completed?: Not applicable
<Satni Torres DO - Last Filed: 11/02/24 15:13>
Heart Failure Risk
HF Risk Score: 4
Admission Status: HIGH RISK 26.1% Consider SNF treatment or admission to hospital
Course
<Leonides Vazquez PA-C - Last Filed: 11/02/24 10:38>
Orders/Labs/Results
Orders:
Orders
11/02/24 10:47
Complete Blood Count/With Diff Urgent
Comprehensive Metabolic Panel Urgent
11/02/24 12:32
US Kidneys [US Renal Only W/O Bladder] Urgent
Comment:
Reason For Exam: renal failure
11/02/24 12:45
0.9% Sodium Chloride 1000 ml [Nss] 1,000 ml IV 75 mls/hr
11/02/24 13:05
NT-proBNP Urgent
Urinalysis Reflex To Culture Urgent
Date Specimen was Collected: 11/02/24
Time Specimen was Collected: 13:04
Urine Microscopic Reflex Cult Urgent
Urine Culture Urgent
SHEYLA Source: U
Specimen Description:
Date Specimen was Collected: 11/02/24
Time Specimen was Collected: 13:04
11/02/24 13:22
Bladder Scan As Directed
Follow Bladder Retention/Intermittent Cath Algorithm?: No
PRN if no void in __ hours: 6
If Bladder Scan Result >: 300
then:: Place catheter
11/02/24 13:23
Admit/Transfer Patient As Directed
Co-Sign Provider:
Level of Care: Inpatient admission
Assign to:: Telemetry
Physician / Group: Melisa
Diagnosis: Acute Renal Failure
Reason for Telemetry: Acute Heart Failure
Date to Stop Telemetry: 11/05/24
Time to Stop Telemetry: 11:00
Reason for Hospitalization: IVFs, Serial Labs
Expected length of stay greater than two midnights?: Yes
ELOS- Estimated Length of Stay in days: 3
I certify the patient meets the requirements for IP care: Yes
11/02/24 13:25
PRN Pain Medication Management As Directed
May give lesser potent ordered pain med per pt: Yes
preference::
Protocol:: Medication orders for pain may be administered in a
manner that supports deferring to patient preference
when the pt is:
- Requesting an ordered lesser potent pain medication.
Least to most potent pain medications are defined
as: acetaminophen < NSAID < tramadol < opioids
(morphine, oxycodone, hydromorphone).
- Requesting a lesser dose of the same medication IF
ORDERED.
- Requesting a less intrusive route of administration
if both routes are prescribed by the provider (PO <
IV).
11/02/24 13:26
NEPHROLOGY CONSULT Routine
Consulting Provider: Josh Centeno V.
Was physician already notified: Yes
11/02/24 13:35
Code Status As Directed
Resuscitation Status: Do not resuscitate
Reached after discussion with pt or family/Healthcare POA: Yes
DNR Bracelet Application ONCE
11/02/24 13:50
Electrocardiogram (*1) Urgent
Reason for Study: Other
Other Reason for Exam: renal dysfunction
EKG- Treatment ONCE
11/02/24 13:54
CR Chest - 2 Views Urgent
Comment:
Reason For Exam: shortness of breath
11/02/24 13:57
Sodium Bicarbonate 50 meq IV NOW STA
11/05/24 11:00
DC Protocol for Telemetry ONCE
Abnormal Lab Results
11/02/24 11/02/24
10:47 13:05
RBC 3.34 L 10^6/uL
(4.20-5.40)
Hgb 10.0 L g/dL
(12.0-16.0)
Hct 31.1 L %
(37.0-47.0)
MCHC 32.2 L g/dL
(33.0-37.0)
RDW 18.7 H %
(11.5-14.5)
Plt Count 112 L 10^3/uL
(130-400)
Abs Immat Gran (auto) 0.1 H 10^3/uL
(0-0.05)
Absolute Lymphs (auto) 0.6 L 10^3/uL
(1.2-3.4)
Immature Gran % 1.5 H %
(0-0.5)
Neutrophils % 79.1 H %
(42.2-75.2)
Lymphocytes % 10.3 L %
(20.5-51.1)
Chloride 111 H mmol/L
(98-107)
Carbon Dioxide 14 L* mmol/L
(22-30)
BUN 107 H* mg/dl
(7-17)
Creatinine 4.7 H* mg/dL
(0.6-1.0)
Glucose 125 H mg/dl
(70-99)
Calcium 8.3 L mg/dl
(8.4-10.2)
Total Protein 6.1 L g/dl
(6.3-8.2)
Albumin 3.3 L g/dl
(3.5-5.0)
Leukocyte Esterase Rfl 2+ A
(Negative)
Urine RBC 3-6 A /HPF
(0-2)
Urine WBC (Reflex) 30-40 A /HPF
(0-5)
Urine Bacteria (Reflex) Moderate A
(Negative)
Urine Albumin (Reflex) 3+ A
(Neg - Trace)
11/02/24 10:47
11/02/24 10:47
Vital Signs
Initial and Last Documented VS:
Initial Vital Signs
Temp Pulse Resp BP Pulse Ox
98.1 F 74 18 121/57 98
11/02/24 10:34 11/02/24 10:34 11/02/24 10:34 11/02/24 10:34 11/02/24 10:34
Last Documented Vital Signs
Temp Pulse Resp BP Pulse Ox
98.1 F 60 18 132/60 72
11/02/24 10:34 11/02/24 14:45 11/02/24 10:34 11/02/24 15:00 11/02/24 15:01
<Jose Raul Flores PA-C - Last Filed: 11/02/24 14:53>
Orders/Labs/Results
Orders:
Orders
11/02/24 10:47
Complete Blood Count/With Diff Urgent
Comprehensive Metabolic Panel Urgent
11/02/24 12:32
US Kidneys [US Renal Only W/O Bladder] Urgent
Comment:
Reason For Exam: renal failure
11/02/24 12:45
0.9% Sodium Chloride 1000 ml [Nss] 1,000 ml IV 75 mls/hr
11/02/24 13:05
NT-proBNP Urgent
Urinalysis Reflex To Culture Urgent
Date Specimen was Collected: 11/02/24
Time Specimen was Collected: 13:04
Urine Microscopic Reflex Cult Urgent
Urine Culture Urgent
SHEYLA Source: U
Specimen Description:
Date Specimen was Collected: 11/02/24
Time Specimen was Collected: 13:04
11/02/24 13:22
Bladder Scan As Directed
Follow Bladder Retention/Intermittent Cath Algorithm?: No
PRN if no void in __ hours: 6
If Bladder Scan Result >: 300
then:: Place catheter
11/02/24 13:23
Admit/Transfer Patient As Directed
Co-Sign Provider:
Level of Care: Inpatient admission
Assign to:: Telemetry
Physician / Group: Melisa
Diagnosis: Acute Renal Failure
Reason for Telemetry: Acute Heart Failure
Date to Stop Telemetry: 11/05/24
Time to Stop Telemetry: 11:00
Reason for Hospitalization: IVFs, Serial Labs
Expected length of stay greater than two midnights?: Yes
ELOS- Estimated Length of Stay in days: 3
I certify the patient meets the requirements for IP care: Yes
11/02/24 13:25
PRN Pain Medication Management As Directed
May give lesser potent ordered pain med per pt: Yes
preference::
Protocol:: Medication orders for pain may be administered in a
manner that supports deferring to patient preference
when the pt is:
- Requesting an ordered lesser potent pain medication.
Least to most potent pain medications are defined
as: acetaminophen < NSAID < tramadol < opioids
(morphine, oxycodone, hydromorphone).
- Requesting a lesser dose of the same medication IF
ORDERED.
- Requesting a less intrusive route of administration
if both routes are prescribed by the provider (PO <
IV).
11/02/24 13:26
NEPHROLOGY CONSULT Routine
Consulting Provider: Josh Centeno V.
Was physician already notified: Yes
11/02/24 13:35
Code Status As Directed
Resuscitation Status: Do not resuscitate
Reached after discussion with pt or family/Healthcare POA: Yes
DNR Bracelet Application ONCE
11/02/24 13:50
Electrocardiogram (*1) Urgent
Reason for Study: Other
Other Reason for Exam: renal dysfunction
EKG- Treatment ONCE
11/02/24 13:54
CR Chest - 2 Views Urgent
Comment:
Reason For Exam: shortness of breath
11/02/24 13:57
Sodium Bicarbonate 50 meq IV NOW STA
11/05/24 11:00
DC Protocol for Telemetry ONCE
Abnormal Lab Results
11/02/24 11/02/24
10:47 13:05
RBC 3.34 L 10^6/uL
(4.20-5.40)
Hgb 10.0 L g/dL
(12.0-16.0)
Hct 31.1 L %
(37.0-47.0)
MCHC 32.2 L g/dL
(33.0-37.0)
RDW 18.7 H %
(11.5-14.5)
Plt Count 112 L 10^3/uL
(130-400)
Abs Immat Gran (auto) 0.1 H 10^3/uL
(0-0.05)
Absolute Lymphs (auto) 0.6 L 10^3/uL
(1.2-3.4)
Immature Gran % 1.5 H %
(0-0.5)
Neutrophils % 79.1 H %
(42.2-75.2)
Lymphocytes % 10.3 L %
(20.5-51.1)
Chloride 111 H mmol/L
(98-107)
Carbon Dioxide 14 L* mmol/L
(22-30)
BUN 107 H* mg/dl
(7-17)
Creatinine 4.7 H* mg/dL
(0.6-1.0)
Glucose 125 H mg/dl
(70-99)
Calcium 8.3 L mg/dl
(8.4-10.2)
Total Protein 6.1 L g/dl
(6.3-8.2)
Albumin 3.3 L g/dl
(3.5-5.0)
Leukocyte Esterase Rfl 2+ A
(Negative)
Urine RBC 3-6 A /HPF
(0-2)
Urine WBC (Reflex) 30-40 A /HPF
(0-5)
Urine Bacteria (Reflex) Moderate A
(Negative)
Urine Albumin (Reflex) 3+ A
(Neg - Trace)
11/02/24 10:47
11/02/24 10:47
Vital Signs
Initial and Last Documented VS:
Initial Vital Signs
Temp Pulse Resp BP Pulse Ox
98.1 F 74 18 121/57 98
11/02/24 10:34 11/02/24 10:34 11/02/24 10:34 11/02/24 10:34 11/02/24 10:34
Last Documented Vital Signs
Temp Pulse Resp BP Pulse Ox
98.1 F 60 18 132/60 72
11/02/24 10:34 11/02/24 14:45 11/02/24 10:34 11/02/24 15:00 11/02/24 15:01
<Santi Torres, DO - Last Filed: 11/02/24 15:13>
Orders/Labs/Results
Orders:
Orders
11/02/24 10:47
Complete Blood Count/With Diff Urgent
Comprehensive Metabolic Panel Urgent
11/02/24 12:32
US Kidneys [US Renal Only W/O Bladder] Urgent
Comment:
Reason For Exam: renal failure
11/02/24 12:45
0.9% Sodium Chloride 1000 ml [Nss] 1,000 ml IV 75 mls/hr
11/02/24 13:05
NT-proBNP Urgent
Urinalysis Reflex To Culture Urgent
Date Specimen was Collected: 11/02/24
Time Specimen was Collected: 13:04
Urine Microscopic Reflex Cult Urgent
Urine Culture Urgent
SHEYLA Source: U
Specimen Description:
Date Specimen was Collected: 11/02/24
Time Specimen was Collected: 13:04
11/02/24 13:22
Bladder Scan As Directed
Follow Bladder Retention/Intermittent Cath Algorithm?: No
PRN if no void in __ hours: 6
If Bladder Scan Result >: 300
then:: Place catheter
11/02/24 13:23
Admit/Transfer Patient As Directed
Co-Sign Provider:
Level of Care: Inpatient admission
Assign to:: Telemetry
Physician / Group: Melisa
Diagnosis: Acute Renal Failure
Reason for Telemetry: Acute Heart Failure
Date to Stop Telemetry: 11/05/24
Time to Stop Telemetry: 11:00
Reason for Hospitalization: IVFs, Serial Labs
Expected length of stay greater than two midnights?: Yes
ELOS- Estimated Length of Stay in days: 3
I certify the patient meets the requirements for IP care: Yes
11/02/24 13:25
PRN Pain Medication Management As Directed
May give lesser potent ordered pain med per pt: Yes
preference::
Protocol:: Medication orders for pain may be administered in a
manner that supports deferring to patient preference
when the pt is:
- Requesting an ordered lesser potent pain medication.
Least to most potent pain medications are defined
as: acetaminophen < NSAID < tramadol < opioids
(morphine, oxycodone, hydromorphone).
- Requesting a lesser dose of the same medication IF
ORDERED.
- Requesting a less intrusive route of administration
if both routes are prescribed by the provider (PO <
IV).
11/02/24 13:26
NEPHROLOGY CONSULT Routine
Consulting Provider: Josh Centeno V.
Was physician already notified: Yes
11/02/24 13:35
Code Status As Directed
Resuscitation Status: Do not resuscitate
Reached after discussion with pt or family/Healthcare POA: Yes
DNR Bracelet Application ONCE
11/02/24 13:50
Electrocardiogram (*1) Urgent
Reason for Study: Other
Other Reason for Exam: renal dysfunction
EKG- Treatment ONCE
11/02/24 13:54
CR Chest - 2 Views Urgent
Comment:
Reason For Exam: shortness of breath
11/02/24 13:57
Sodium Bicarbonate 50 meq IV NOW STA
11/05/24 11:00
DC Protocol for Telemetry ONCE
Abnormal Lab Results
11/02/24 11/02/24
10:47 13:05
RBC 3.34 L 10^6/uL
(4.20-5.40)
Hgb 10.0 L g/dL
(12.0-16.0)
Hct 31.1 L %
(37.0-47.0)
MCHC 32.2 L g/dL
(33.0-37.0)
RDW 18.7 H %
(11.5-14.5)
Plt Count 112 L 10^3/uL
(130-400)
Abs Immat Gran (auto) 0.1 H 10^3/uL
(0-0.05)
Absolute Lymphs (auto) 0.6 L 10^3/uL
(1.2-3.4)
Immature Gran % 1.5 H %
(0-0.5)
Neutrophils % 79.1 H %
(42.2-75.2)
Lymphocytes % 10.3 L %
(20.5-51.1)
Chloride 111 H mmol/L
(98-107)
Carbon Dioxide 14 L* mmol/L
(22-30)
BUN 107 H* mg/dl
(7-17)
Creatinine 4.7 H* mg/dL
(0.6-1.0)
Glucose 125 H mg/dl
(70-99)
Calcium 8.3 L mg/dl
(8.4-10.2)
Total Protein 6.1 L g/dl
(6.3-8.2)
Albumin 3.3 L g/dl
(3.5-5.0)
Leukocyte Esterase Rfl 2+ A
(Negative)
Urine RBC 3-6 A /HPF
(0-2)
Urine WBC (Reflex) 30-40 A /HPF
(0-5)
Urine Bacteria (Reflex) Moderate A
(Negative)
Urine Albumin (Reflex) 3+ A
(Neg - Trace)
11/02/24 10:47
11/02/24 10:47
Vital Signs
Initial and Last Documented VS:
Initial Vital Signs
Temp Pulse Resp BP Pulse Ox
98.1 F 74 18 121/57 98
11/02/24 10:34 11/02/24 10:34 11/02/24 10:34 11/02/24 10:34 11/02/24 10:34
Last Documented Vital Signs
Temp Pulse Resp BP Pulse Ox
98.1 F 60 18 132/60 72
11/02/24 10:34 11/02/24 14:45 11/02/24 10:34 11/02/24 15:00 11/02/24 15:01
<Jose Raul Flores PA-C - Last Filed: 11/02/24 14:53>
MDM/Problems Addressed
Differential Diagnosis Includes:
Cardiorenal syndrome, valvular dysfunction, hypoperfusion/hypovolemia, electrolyte derangement
MDM/Problems Addressed:
74-year-old female presenting to the ER for evaluation of worsening renal function, notes decreased p.o. intake to solids over the last week, no GI loss. Still making urine. Labs initiated from triage show a creatinine of 4.7, BUN of greater than
100 and a bicarb of 14. Patient's baseline creatinine usually between 1.8- 2. Will start on a 75 mL/h normal saline drip. Notify both nephrology and hospitalist team.
Chronic conditions affecting care: Cardiomyopathy and Kidney disease
Acute Exacerbation and/or Progression of Chronic Illness: Cardiomyopathy and Kidney disease
<Jose Raul Flores PA-C - Last Filed: 11/02/24 14:53>
*Pulse Oximetry
Patient hypoxic: no
*EKG
Heart Rate: 65
Rate: normal
Rhythm: sinus
[place]: left axis deviation
Ischemia: ST elevation (lateral leads)
*Dispatch Lead Interpretation
Rate: normal
Rhythm: sinus
*Critical Care Note
Total Time (30-74mins, 75-104mins- exclusive of procedures): Not Applicable
Data Reviewed
Review of Other/Old Records Reveals: Labs, Records and Discharge Summary
Source: patient and records
<Jose Raul Flores PA-C - Last Filed: 11/02/24 14:53>
Patient Management
Discussion with other providers: Hospitalist and Chief Medical Physicist
Escalation/DeEscalation of care consider admission/obs:
Nephrology requesting we BladderScan the patient and if greater than 300 mL of urine within the bladder would recommend Juan catheter. Patient did not have any urine within the bladder during bladder scan. Hospitalist team accepts for continued
evaluation and treatment.
EKG was also reviewed with cardiology who states at this time there is no concern and that her EKG findings are related to her pacemaker.
ED Attending Note
<Leonides Vazquez PA-C - Last Filed: 11/02/24 10:38>
-
Portions of this chart may have been created with voice recognition software.� Occasional wrong word or��sound alike� substitutions may have occurred due to the inherent limitations of voice recognition software.
<Santi Torres DO - Last Filed: 11/02/24 15:13>
ED Attending Note
Patient seen and examined by attending physician: Yes
I performed the substantive portion of visit, reviewed & personally made and approve the management plan that is documented in note by myself or LUZ.: Yes
ED Attending Note:
I have seen and evaluated the patient with a [id number] encounter. I have spoken to the advance practicer provider and involved in the medical history, the physical exam, medical decision making.
Evaluation and management service: agree unless noted differently below.
Results interpretation: agree unless noted differently below.
Focused HPI: 74-year-old female with multiple comorbidities is presenting with abnormal blood work. Patient has multiple complaints. She was sent in for worsening liver function
Physical exam: No acute distress. Mild pitting edema to both legs. Abdomen soft and nontender
Medical Decision Making: Renal at bedside. Will admit based on lab abnormalities. Patient has elevated BNP. Will obtain chest x-ray
Discharge Plan
Departure
Patient Disposition: Admit
Date of Disposition: 11/02/24
Time of Disposition: 12:40
Presentation/result/management discussed w/ accepting MD/DO: Hospitalist
Discharge Problem:
CKD (chronic kidney disease), Acute uremia
Interventions
Interventions:
*Risk Screen - Suicide Last Done: 11/02/24 10:34
*General Assessment Last Done: 11/02/24 10:34
*Neglect/Abuse Screening Last Done: 11/02/24 10:34
*ED COVID-19 Vaccine History Last Done: 11/02/24 12:34
[2024-11-02 11:00] LABS: % Basophils 0.4 % (0-2); % Eosinophils 1.7 % (0-6); % Immature Granulocytes 1.5 % (0-0.5); % Lymphocytes 10.3 % (20.5-51.1); % Neutrophils 79.1 % (42.2-75.2); Absolute Eosinophils 0.1 10^3/uL (0-0.7); Absolute Immature Granulocytes 0.1 10^3/uL (0-0.05); Absolute Lymphocytes 0.6 10^3/uL (1.2-3.4); Absolute Monocytes 0.4 10^3/uL (0.1-0.6); Absolute Neutrophils 4.3 10^3/uL (1.4-6.5); Hematocrit 31.1 % (37.0-47.0); Mean Corp Hgb Conc. 32.2 g/dL (33.0-37.0); Mean Corpuscular Hgb 29.9 pg (27.0-31.0); Mean Corpuscular Volume 93.1 fL (81.0-99.0); Mean Platelet Volume 10.2 fL (7.4-10.4); Nucleated Red Blood Cells % 0 %; Platelet Count 112 10^3/uL (130-400); Red Blood Cell Count 3.34 10^6/uL (4.20-5.40); Red Cell Dist. Width 18.7 % (11.5-14.5); White Blood Cell Count 5.4 10^3/uL (4.8-10.8)
[2024-11-02 11:19] LABS: ALT (SGPT) 19 U/L (0-35); AST (SGOT) 29 U/L (14-36); Albumin 3.3 g/dl (3.5-5.0); Alkaline Phosphatase 119 U/L (38-126); Blood Urea Nitrogen 107 mg/dl (7-17); Calcium 8.3 mg/dl (8.4-10.2); Carbon Dioxide 14 mmol/L (22-30); Chloride 111 mmol/L (98-107); Glucose 125 mg/dl (70-99); Potassium 4.6 mmol/L (3.5-5.1); Sodium 141 mmol/L (135-145); Total Bilirubin 0.5 mg/dl (0.2-1.3); Total Protein 6.1 g/dl (6.3-8.2); eGFR 9.35
[2024-11-02] MEDS: NSS 1000 IV (12:56)
[2024-11-02 13:18] LABS: Urine Albumin 3+ (Neg - Trace); Urine Bilirubin Negative (Negative); Urine Character Clear (Clear); Urine Color Yellow; Urine Glucose Negative (Negative); Urine Ketone Negative (Negative); Urine Leukocyte 2+ (Negative); Urine Nitrite Negative (Negative); Urine Occult Blood Negative (Negative); Urine Specific Gravity 1.025 (<1.030); Urine Urobilinogen Negative (Neg - 1+)
[2024-11-02 13:37] LABS: NT-proBNP > 27000 pg/ml
--- NOTE | 2024-11-02 13:38 | HPS.HSE ---
Family Physician
-
Family Physician: * NONE
Chief Complaint
-
Weakness and Abnormal Labs
History of Present Illness
Patient is a 74 y/o female past medical history of ASCVD, CHF, A-Fib, DM and CKD 4 who presents with weakness and abnormal labs. Patient reports increased weakness and fatigue over the past week or so. She is currently at [facility] for rehab
following a hospitalization in September for acute heart failure. She reports she previously was able to transfer unassisted, but now requires assistance. She notes worsening lower extremity edema, and increased dyspnea on exertion. It appears she
has also gained about 20lbs since admission last month. She reports very appetite with poor oral intake. She reports decreased urine outpatient. Labs as outpatient revealed Creatinine 4.7 and she was sent to the emergency for evaluation.
Medical History
Past Medical History
Past Medical History: Reports Other
Additional Past Medical History:
Paroxysmal A-Fib / Flutter
Chronic HFrEF (30-35%)
ASCVD
CKD IV
DM-II
Anemia of Chronic Disease
Charcot Foot
Diverticular Disease
Hypertension
Sacral / Ischial Wounds
Chronic Lymphedema
Past Surgical History: Reports Other
Additional Past Surgical History:
PPM Placement
CABG x 3
Left Ankle Fusion
Left Great Toe Amputation
Ex Lap / Sigmoid Resection / End Colostomy
Cholecystectomy
Social History
Tobacco: Non-smoker
Alcohol: None
Drug: None
Living: Alone
Family History
Family History: Not pertinent
Allergies / Home Medications
Allergies reflects when Allergies were last updated in [facility].
Home Medications with original date entered in [facility]
Allergy/Medication List:
Allergies
Allergy/AdvReac Type Severity Reaction Status Date / Time
erythromycin base Allergy Unknown Verified 11/02/24 10:34
Iodinated Contrast Media Allergy Unknown Verified 11/02/24 10:34
[Iodinated Contrast Media -
IV Dye]
prednisone Allergy Unknown Verified 11/02/24 10:34
sulfamethoxazole Allergy Unknown Verified 11/02/24 10:34
[From Bactrim]
trimethoprim [From Bactrim] Allergy Unknown Verified 11/02/24 10:34
vancomycin Allergy Itching Verified 11/02/24 10:34
AND RED
SCALP
Home Medications
metoprolol succinate 50 mg tablet,extended release 24 hr 50 mg PO DAILY Heart disease/condition 12/03/20
atorvastatin 40 mg tablet (Lipitor) 40 mg PO HS High cholesterol 02/18/23
buspirone 5 mg tablet 5 mg PO BID anxiety 02/18/23
mirtazapine 7.5 mg tablet 7.5 mg PO HS depression/sleep 02/18/23
acetaminophen 500 mg tablet (Tylenol Extra Strength) 1,000 mg PO Q6HPRN PRN mild pain 09/30/24
apixaban 5 mg tablet (Eliquis) 5 mg PO BID Blood Clot Prevention/Tx 11/02/24
cyanocobalamin (vitamin B-12) 1,000 mcg tablet 1,000 mcg PO DAILY Supplement 11/02/24
ferrous sulfate 325 mg (65 mg iron) tablet 325 mg PO DAILY Supplement 11/02/24
furosemide 40 mg tablet 40 mg PO DAILY Fluid Retention/Swelling 11/02/24
hydralazine 25 mg tablet 25 mg PO TID Blood Pressure 11/02/24
insulin glargine 100 unit/mL (3 mL) subcutaneous pen (Lantus Solostar U-100 Insulin) 20 unit SC HS Diabetes 11/02/24
isosorbide mononitrate 30 mg tablet,extended release 24 hr 30 mg PO DAILY Heart Disease/Condition 11/02/24
ketotifen fumarate 0.025 % (0.035 %) eye drops 1 drp BOTH EYES BID Eye Condition 11/02/24
loratadine 10 mg tablet 10 mg PO DAILY Allergies 11/02/24
omeprazole 40 mg capsule,delayed release 40 mg PO DAILY Gastrointestinal Issue 11/02/24
tramadol 25 mg tablet 25 mg PO [id number] PRN pain scale from 4-7 11/02/24
Review of Systems
-
A 12 point ROS was completed and negative except as noted: Yes
Constitutional: Denies Fever or Chills
Respiratory: Reports Trouble Breathing (Dyspnea on exertion); Denies Cough
Cardiac: Denies Chest Pain or Palpitations
Physical Exam
Vital Signs
Vital Signs
Temp Pulse Resp BP Pulse Ox
98.1 F 67 18 128/50 98
11/02/24 10:34 11/02/24 12:45 11/02/24 10:34 11/02/24 12:42 11/02/24 12:45
Physical Exam
General: Comfortable and Conversant
HEENT: Anicteric and Moist mucous membranes
Respiratory: Rales (Bilateral Bases) and Non Labored Respirations
Cardiac: S1/S2 and Regular Rhythm
GI: Soft and Non Tender
Rectal: Deferred by Provider
Musculoskeletal: Other (Chronic bilateral lower extremity lymphedema with some pitting edema; Left upper extremity edema)
Skin: Warm and Dry
Neuro: Awake, Alert, Oriented and Nonfocal/grossly intact
Psych: Calm
Laboratory Results
-
11/02/24 10:47
11/02/24 10:47
Laboratory Results
Total Bilirubin 0.5 mg/dl (0.2-1.3) 11/02/24 10:47
AST 29 U/L (14-36) 11/02/24 10:47
ALT 19 U/L (0-35) 11/02/24 10:47
Alkaline Phosphatase 119 U/L (38-126) 11/02/24 10:47
Data Reviewed
-
Lab Data: Labs Reviewed by me
Old Records: Reviewed
Impression/Plan
-
Acute Kidney Injury on CKD IV, suspect cardiorenal syndrome
-Consult Nephrology
-Await renal ultrasound
-Monitor bladder scans
-Patient received IVFs in ED, but will likely need IV diuretics
Acute on Chronic HFrEF
-Consult Cardiology
-Defer diuretics to Nephrology/Cardiology
-Monitor Is&Os and Daily Weights
Metabolic Acidosis
-Give amp of sodium bicarb
-Repeat labs in AM
Paroxysmal A-Fib / Flutter
-Continue Eliquis for anticoagulation
-Continue metoprolol for rate/rhythm control
ASCVD
-Continue Lipitor
-Continue Isosorbide Mononitrate
Essential Hypertension
-Continue hydralazine and metoprolol with hold parameters
Diabetes Mellitus, Type II - Uncontrolled
-HgbA1c 10.8 in Sep 2024
-Decrease Lantus and NovoLog doses in setting of ANDI
-Monitor sugars and continue coverage insulin
Anemia of Chronic Disease
-Hgb stable
Anxiety/Depression
-Continue buspirone and mirtazapine
GERD
-Continue Protonix
DVT proph: Eliquis
Code Status: DNR
[2024-11-02 13:48] LABS: Urine Squamous Cell >30 /LPF (Few)
[2024-11-02 13:50] LABS: Urine Bacteria Moderate (Negative); Urine White Cell 30-40 /HPF (0-5)
--- NOTE | 2024-11-02 14:04 | W.CON.NEPH ---
Consultation
-
Date/Time Consultation Requested: 11/02/2024 12:00 noon
Date/Time Consultation Performed: 11/02/2024 2:00 PM
Requesting Provider: Dr. Floers
Performing Provider: Dr. Centeno
Reason for Consultation: Acute renal failure
Medical History
-
Chief Complaint: Acute renal
History of Present Illness:
This is a 74-year-old female who has diabetes mellitus type 2 which is typically uncontrolled on insulin therapy, patient atrial fibrillation on anticoagulation with Eliquis, hyperlipidemia on statin therapy. She has chronic kidney disease stage IV
baseline creatinine typically around 2.6 as of 10/23. She also has ischemic cardiomyopathy with ejection fraction of 30% though not on chronic diuretic therapy. She does have some baseline lymphedema though typically mild. In the last 4 months
she says that she had lost about 30 pounds because of decreased appetite. She was recently admitted at [facility] on September 30, 2024 through October 07, 2024 with toxic metabolic encephalopathy and acute congestive heart failure with
acute renal failure. We Soller at the time following her IV diuresis course in the hospital for congestive heart faliure. She now presents to the hospital from [facility] with increasing fatigue weakness and decreased appetite. She is notably
volume overloaded. On presentation to the hospital she is in acute renal failure with a creatinine of 4.7 and a BUN of 104 with an associated metabolic acidosis with a serum bicarbonate level 14. Of note her weight is up to 92.2 kg off her
discharge weight from 10/07/2024 at 76 kg. Nephrology was consulted for acute renal failure management.
Past Medical History
CKD 4, heart failure reduced ejection fraction 30%, coronary artery disease/CABG, paroxysmal atrial fibrillation, lymphedema, non-Hodgkin's lymphoma, Diazemuls type II, ileostomy, diverticulitis, hypertension, GERD, hyperlipidemia, obesity,
pulmonary hypertension, Charcot foot, left ankle fusion, left great toe amputation, cholecystectomy, pacemaker
Social History
Tobacco: Former Smoker
Alcohol: None
Family History
Family History: Not Pertinent
Allergies / Home Medications
Allergy/AdvReac Type Severity Reaction Status Date / Time
erythromycin base Allergy Unknown Verified 11/02/24 10:34
Iodinated Contrast Media Allergy Unknown Verified 11/02/24 10:34
[Iodinated Contrast Media -
IV Dye]
prednisone Allergy Unknown Verified 11/02/24 10:34
sulfamethoxazole Allergy Unknown Verified 11/02/24 10:34
[From Bactrim]
trimethoprim [From Bactrim] Allergy Unknown Verified 11/02/24 10:34
vancomycin Allergy Itching Verified 11/02/24 10:34
AND RED
SCALP
�Medication �Instructions �Recorded �Confirmed �Type
metoprolol succinate 50 mg 50 mg PO DAILY Heart 12/03/20 11/02/24 History
tablet,extended release 24 hr disease/condition
atorvastatin 40 mg tablet (Lipitor) 40 mg PO HS High cholesterol 02/18/23 11/02/24 History
buspirone 5 mg tablet 5 mg PO BID anxiety 02/18/23 11/02/24 History
mirtazapine 7.5 mg tablet 7.5 mg PO HS depression/sleep 02/18/23 11/02/24 History
acetaminophen 500 mg tablet 1,000 mg PO Q6HPRN PRN mild pain 09/30/24 11/02/24 History
(Tylenol Extra Strength)
apixaban 5 mg tablet (Eliquis) 5 mg PO BID Blood Clot 11/02/24 11/02/24 History
Prevention/Tx
cyanocobalamin (vitamin B-12) 1,000 mcg PO DAILY Supplement 11/02/24 11/02/24 History
1,000 mcg tablet
ferrous sulfate 325 mg (65 mg 325 mg PO DAILY Supplement 11/02/24 11/02/24 History
iron) tablet
furosemide 40 mg tablet 40 mg PO DAILY Fluid 11/02/24 11/02/24 History
Retention/Swelling
hydralazine 25 mg tablet 25 mg PO TID Blood Pressure 11/02/24 11/02/24 History
insulin aspart U-100 100 unit/mL 12 unit SC AC diabetes 11/02/24 11/02/24 History
(3 mL) subcutaneous pen (Novolog
FlexPen U-100 Insulin aspart)
insulin glargine 100 unit/mL (3 20 unit SC HS Diabetes 11/02/24 11/02/24 History
mL) subcutaneous pen (Lantus
Solostar U-100 Insulin)
isosorbide mononitrate 30 mg 30 mg PO DAILY Heart 11/02/24 11/02/24 History
tablet,extended release 24 hr Disease/Condition
ketotifen fumarate 0.025 % (0.035 1 drp BOTH EYES BID Eye Condition 11/02/24 11/02/24 History
%) eye drops
loratadine 10 mg tablet 10 mg PO DAILY Allergies 11/02/24 11/02/24 History
omeprazole 40 mg capsule,delayed 40 mg PO DAILY Gastrointestinal 11/02/24 11/02/24 History
release Issue
tramadol 25 mg tablet 25 mg PO [id number] PRN pain scale 11/02/24 11/02/24 History
from 4-7
Review of Systems
-
History Source: Patient
All other systems: Negative unless noted
Constitutional: Weight Gain and Fatigue
Respiratory: Other (Dyspnea on exertion)
Abdomen/GI: Other (Ileostomy)
Musculoskeletal: Edema
Physical Exam
Vital Signs
Vital Signs
Temp Pulse Resp BP Pulse Ox
98.1 F 62 18 116/49 94
11/02/24 10:34 11/02/24 13:30 11/02/24 10:34 11/02/24 13:00 11/02/24 13:15
Lab Results
11/02/24 10:47
11/02/24 10:47
WBC 5.4 10^3/uL (4.8-10.8) 11/02/24 10:47
RBC 3.34 10^6/uL (4.20-5.40) L 11/02/24 10:47
Hgb 10.0 g/dL (12.0-16.0) L 11/02/24 10:47
Hct 31.1 % (37.0-47.0) L 11/02/24 10:47
Plt Count 112 10^3/uL (130-400) L 11/02/24 10:47
Sodium 141 mmol/L (135-145) 11/02/24 10:47
Potassium 4.6 mmol/L (3.5-5.1) 11/02/24 10:47
Chloride 111 mmol/L (98-107) H 11/02/24 10:47
Carbon Dioxide 14 mmol/L (22-30) L* 11/02/24 10:47
BUN 107 mg/dl (7-17) H* 11/02/24 10:47
Creatinine 4.7 mg/dL (0.6-1.0) H* 11/02/24 10:47
eGFR 9.35 11/02/24 10:47
Glucose 125 mg/dl (70-99) H 11/02/24 10:47
Calcium 8.3 mg/dl (8.4-10.2) L 11/02/24 10:47
Cgq-R-Uulqypmagbg Pept > 80248 pg/ml 11/02/24 13:05
Albumin 3.3 g/dl (3.5-5.0) L 11/02/24 10:47
Physical Exam
General: AOx3, Nontoxic , NAD, obese
HEENT: PERRL, EOMI, Anicteric, Conjunctivae Clear, Ear/Nose Intact, Hearing Normal, Oropharynx Clear/Moist, Dentition Intact, Facial Symmetry, Neck Supple, Neck: Trachea Midline, No JVD and No Thyromegaly, no Bruits
Respiratory: Rales bilaterally with normal lung exersion
Cardiac: S1/S2 and Regular Rate/Rhythm
Breast: Deferred by me
Abdomen: Soft, Nontender, Nondistended, Normal Bowel Sounds and No Hepatosplenomegaly
Rectal: Deferred by Provider
Genito-urinary: No Costovertebral Tenderness
Extremities: No Clubbing, No Cyanosis. 3 plus pitting edema
Skin: No Rash or open lesions
Neuro: Nonfocal/Grossly Intact, CN II-XII (Intact) and Strength (Musculoskeletal exam 5 out of 5 both upper and lower extremities)
Hematologic/Lymphatic: No Cervical Lymphadenopathy, No Submandibular Lymphadenopathy and No Supraclavicular Lymphadenopathy
Psych: Mood/afflect pleasant, Insight/judgement good and Appropriate
Vascular: plus 1 pedal and radial pulses
Data Reviewed
-
Radiology: Report Reviewed by me (CXR : to personally reviewed)
Medical Tests (Nuc Med, Echo etc): Other (EKG :conduction block by personal review)
Labs: Labs Reviewed by me (bmp, cbc, )
Old Records: Reviewed (creatinine of 01/0510/07/24)
Assessment/Plan
-
Assessment
CKD4 (2.6)
ANDI
Metabolic acidosis
diabetes mellitus type 2 with proteinuria
Heart failure reduced ejection fractionEF 30-35%
Paroxysmal atrial fibrillation
Ileostomy
Failure to thrive
Plan
Patient weight up over 15 kg since discharge
Volume overloaded on exam, will initiate diuresis
start lasix 80mg IV BID
Place Juan as postvoid ultrasound was not discernible
ER ordered kidney and bladder ultrasound
proBNP greater than 27,000
Obtain chest x-ray
Accurate I's and O, daily weights
No acute dialysis requirement today
[2024-11-02] MEDS: SODIUM BICARBONATE 50 MEQ IV (14:18)
[2024-11-02] MEDS: LASIX 80 MG IV ×2 (14:40→20:01)
--- NOTE | 2024-11-02 14:49 | W.PN.UPDATE ---
Update Note
Progress Note Update
This is an addendum to the H&P written by Tana Howard.� Patient seen and examined independently with PA.
74-year-old female past medical history of CAD status post CABG, chronic HFrEF, diabetes, lower extremity lymphedema, CKD 4, paroxysmal atrial fibrillation/flutter on Eliquis, heart block status post pacemaker, type 2 diabetes, anxiety/depression,
wheelchair-bound, Hodgkin's lipoma, stage IV pressure injuries, pancytopenia, presenting with weakness and fatigue and abnormal renal function.� She has gained 20 pounds in a month, SLIGHT worsening of chronic lower extreme edema, slight upper
extremity edema, exertional dyspnea.
Creatinine 4.7 from baseline of 2.6 with anion gap metabolic acidosis.�
Presentation consistent with acute HFrEF exacerbation with cardiorenal syndrome, uremia, anion gap metabolic acidosis.� Given IV fluids in ER.� Bladder scan protocol.� Renal ultrasound pending.� Stop IV fluids.� Bicarb given.�80 IV Lasix
BID.�Nephrology consulted/cardiology consulted.
--- NOTE | 2024-11-02 15:22 | CON.CAR ---
Addendum entered and electronically signed by Juan Daniel Dalal MD 11/02/24 17:00:
I saw and examined the patient.
The PUPPET MASTER's note was reviewed and I agree with the note.
Comment: Clearly her weight is up and she has more edema than her baseline. LVEDP at last cath in 11/2020 was 24 mmHg. Last month LVEF 35-40%. RV dysfunction, mild MR, mild-mod AR, mod TR, PASP 71 mmHg.
Pacer checked by me: Normal battery and lead function, AFib became persistent in March 2024, over 99% paced in the RV, rare NSVT, none recent. Pt activity <1 hr/day for over 1 year. Pacer has not been checked in more than 1 year.
Agree with diuresis
Will try an advance GDMT while here after diuresis. Will check costs of SGLT2-I and ARNI.
Original Note:
Consultation
Consultation Request
Date/Time Consultation Requested: 11/02/24 1400
Date/Time Consultation Performed: 11/02/24 1500
Requesting Provider: Tana CELIS
Performing Provider: Alicia BOYLE for Dr. Dalal
Reason for Consultation: HFrEF
Medical History
-
Chief Complaint: weakness, fatigue, abnormal labs
History of Present Illness:
74 y/o female with CAD s/p CABG, AFIB on Eliquis (looks to be persistent based on recent strips), HFrEF, ICM with EF 35-40%, pacemaker. She was recently hospitalized for acute on chronic HFrEF after running out of her medicnes. She is now at [place]
[facility]. She has been feeling weak and fatigued, and with poor appetite. There has been weight gain and increased LE edema. OP labs were abnormal and she was sent in. She has ANDI on CKD and is volume overloaded. She is not sure if she has
been urinating normally or not.
Past Medical History
Past Medical History: Arrhythmias, CAD and CHF
Social History
Tobacco: Former Smoker
Family History
Family History: Reviewed & Not Pertinent
Allergies / Home Medications
Allergy/AdvReac Type Severity Reaction Status Date / Time
erythromycin base Allergy Unknown Verified 11/02/24 10:34
Iodinated Contrast Media Allergy Unknown Verified 11/02/24 10:34
[Iodinated Contrast Media -
IV Dye]
prednisone Allergy Unknown Verified 11/02/24 10:34
sulfamethoxazole Allergy Unknown Verified 11/02/24 10:34
[From Bactrim]
trimethoprim [From Bactrim] Allergy Unknown Verified 11/02/24 10:34
vancomycin Allergy Itching Verified 11/02/24 10:34
AND RED
SCALP
�Medication �Instructions �Recorded �Confirmed �Type
metoprolol succinate 50 mg 50 mg PO DAILY Heart 12/03/20 11/02/24 History
tablet,extended release 24 hr disease/condition
atorvastatin 40 mg tablet (Lipitor) 40 mg PO HS High cholesterol 02/18/23 11/02/24 History
buspirone 5 mg tablet 5 mg PO BID anxiety 02/18/23 11/02/24 History
mirtazapine 7.5 mg tablet 7.5 mg PO HS depression/sleep 02/18/23 11/02/24 History
acetaminophen 500 mg tablet 1,000 mg PO Q6HPRN PRN mild pain 09/30/24 11/02/24 History
(Tylenol Extra Strength)
apixaban 5 mg tablet (Eliquis) 5 mg PO BID Blood Clot 11/02/24 11/02/24 History
Prevention/Tx
cyanocobalamin (vitamin B-12) 1,000 mcg PO DAILY Supplement 11/02/24 11/02/24 History
1,000 mcg tablet
ferrous sulfate 325 mg (65 mg 325 mg PO DAILY Supplement 11/02/24 11/02/24 History
iron) tablet
furosemide 40 mg tablet 40 mg PO DAILY Fluid 11/02/24 11/02/24 History
Retention/Swelling
hydralazine 25 mg tablet 25 mg PO TID Blood Pressure 11/02/24 11/02/24 History
insulin aspart U-100 100 unit/mL 12 unit SC AC diabetes 11/02/24 11/02/24 History
(3 mL) subcutaneous pen (Novolog
FlexPen U-100 Insulin aspart)
insulin glargine 100 unit/mL (3 20 unit SC HS Diabetes 11/02/24 11/02/24 History
mL) subcutaneous pen (Lantus
Solostar U-100 Insulin)
isosorbide mononitrate 30 mg 30 mg PO DAILY Heart 11/02/24 11/02/24 History
tablet,extended release 24 hr Disease/Condition
ketotifen fumarate 0.025 % (0.035 1 drp BOTH EYES BID Eye Condition 11/02/24 11/02/24 History
%) eye drops
loratadine 10 mg tablet 10 mg PO DAILY Allergies 11/02/24 11/02/24 History
omeprazole 40 mg capsule,delayed 40 mg PO DAILY Gastrointestinal 11/02/24 11/02/24 History
release Issue
tramadol 25 mg tablet 25 mg PO [id number] PRN pain scale 11/02/24 11/02/24 History
from 4-7
Review of Systems
-
History Source: Patient
All other systems: Negative unless noted
Constitutional: Weight Gain, Fatigue and Other (weakness)
Musculoskeletal: Edema
Physical Exam
Vital Signs
Temp Pulse Resp BP Pulse Ox
98.1 F 60 18 132/60 72
11/02/24 10:34 11/02/24 14:45 11/02/24 10:34 11/02/24 15:00 11/02/24 15:01
Lab Results
11/02/24 10:47
11/02/24 10:47
Nir-U-Htvaydfscpx Pept > 83893 pg/ml 11/02/24 13:05
Physical Exam
General: Well Developed, Well Nourished and No Apparent Distress
HEENT: Normocephalic and Anicteric
Respiratory: Crackles (b/l bases)
Cardiac: Regular Rhythm
Musculoskeletal: Edema (severe BLE edema )
Skin: Warm and Dry
Neuro: AO x 3
Psych: Calm
Impression / Plan
-
Wucqv-rk-nbeedag HFrEF:
-weight is up significantly, LE edema is noted, rales on exam
-patient volume overloaded on exam in setting of ANDI on CKD
-agree with IV lasix as recommended by nephrology, which requires intensive monitoring
ANDI on CKD:
-nephrology is on the case
-monitor response to diuresis
Persistent AFIB:
-rate-controlled
-interrogate device
-continue Eliquis and metoprolol
CAD with hx CABG:
-denies any CP
-continue Eliquis, metoprolol, statin
Pacemaker:
-interrogate
Data Reviewed
-
EKG: Tracing Personally Visualized and interpreted (v-paced)
Radiology: Report Reviewed by me (Left basilar opacity suggesting a small pleural effusion with adjacent atelectasis and/or pneumonia.)
Medical Tests (Nuc Med, Echo etc): Report Reviewed by me (Echo 10/03/24: LVEF 35-40%. Akinesis of the mid to distal septal wall and apex. Right ventricle is moderately dilated with mildly reduced systolic function. Mild mitral regurgitation. Mild to
moderate aortic regurgitation. Moderate tricuspid regurgitation. Estimated PASP 71 mmHg.)
Labs: Labs Reviewed by me
[2024-11-02 16:06] LABS: Creatine Phosphokinase 48 U/L (30-135)
[2024-11-02 16:39] LABS: Troponin I 0.072 ng/ml
--- NOTE | 2024-11-02 16:50 | PTCARENOTE ---
Received pt from ED via stretcher. AAOx2-3. Forgetful. Bed alarm placed and plugged in. No complaints of pain. Assessed and oriented to room. Pt verbalized understanding of call ball. Call castanon within close reach.
[2024-11-02 16:57] LABS: Glucose - Point of Care 130 mg/dl (70-99)
[2024-11-02] MEDS: NOVOLOG FLEXPEN-MODERATE RESISTANCE SC (17:17)
[2024-11-02] MEDS: NOVOLOG FLEXPEN 4 UNITS SC (17:17)
[2024-11-02] MEDS: APRESOLINE 25 MG PO (17:19)
[2024-11-02] MEDS: BUSPAR 5 MG PO (20:00)
[2024-11-02] MEDS: ELIQUIS 5 MG PO (20:00)
[2024-11-02 21:49] LABS: Glucose - Point of Care 192 mg/dl (70-99)
[2024-11-02 22:31] LABS: Troponin I 0.071 ng/ml
[2024-11-02] MEDS: APRESOLINE PO (22:57)
[2024-11-02] MEDS: REMERON 7.5 MG PO (22:57)
[2024-11-02] MEDS: LIPITOR 40 MG PO (22:57)
[2024-11-02] MEDS: LANTUS 0.12 UNITS SC (22:57)
[2024-11-03] VITALS (10 sets, daily range): BP systolic 106–155; BP diastolic 40–78; PULSE 60; O2SAT 97; BMI 30.7
[2024-11-03 06:15] LABS: Hematocrit 32.9 % (37.0-47.0); Hemoglobin 9.9 g/dL (12.0-16.0); Mean Corp Hgb Conc. 30.1 g/dL (33.0-37.0); Mean Corpuscular Hgb 29.4 pg (27.0-31.0); Mean Corpuscular Volume 97.6 fL (81.0-99.0); Mean Platelet Volume 10.7 fL (7.4-10.4); Platelet Count 110 10^3/uL (130-400); Red Blood Cell Count 3.37 10^6/uL (4.20-5.40); Red Cell Dist. Width 18.6 % (11.5-14.5); White Blood Cell Count 4.5 10^3/uL (4.8-10.8)
[2024-11-03 06:50] LABS: Troponin I 0.084 ng/ml
[2024-11-03 07:08] LABS: Blood Urea Nitrogen 108 mg/dl (7-17); Calcium 8.3 mg/dl (8.4-10.2); Carbon Dioxide 20 mmol/L (22-30); Chloride 111 mmol/L (98-107); Estimated Creatinine Clearance 12 ml/min; Glucose 168 mg/dl (70-99); Magnesium 2.7 mg/dl (1.6-2.3); Potassium 4.2 mmol/L (3.5-5.1); Sodium 143 mmol/L (135-145); eGFR 9.35
[2024-11-03] MEDS: PROTONIX 40 MG PO (08:11)
[2024-11-03] MEDS: IMDUR (EXTENDED RELEASE) 30 MG PO (08:11)
[2024-11-03] MEDS: APRESOLINE 25 MG PO (08:13)
[2024-11-03 08:14] LABS: Glucose - Point of Care 149 mg/dl (70-99)
[2024-11-03] MEDS: BUSPAR 5 MG PO ×2 (08:15→21:27)
[2024-11-03] MEDS: VITAMIN B-12 1000 MCG PO (08:16)
[2024-11-03] MEDS: TOPROL XL 50 MG PO (08:17)
[2024-11-03] MEDS: FEOSOL 325 MG PO (08:18)
[2024-11-03] MEDS: ELIQUIS 5 MG PO ×2 (08:19→21:27)
[2024-11-03] MEDS: LASIX 80 MG IV ×2 (08:20→17:05)
[2024-11-03] MEDS: NOVOLOG FLEXPEN-MODERATE RESISTANCE SC (08:45)
[2024-11-03] MEDS: NOVOLOG FLEXPEN 4 UNITS SC ×3 (08:46→17:10)
--- NOTE | 2024-11-03 08:56 | W.PN.HOSP.TC ---
Today's Communication/Plan
-
IV Lasix
Assessment / Plan
Assessment / Plan
Physical Exam
General: Acutely ill
HEENT: Anicteric and Moist mucous membranes
Respiratory: Rales (Bilateral Bases) and Non Labored Respirations
Cardiac: S1/S2 and irregular rate and rhythm, systolic murmur
GI: Soft and Non Tender
Rectal: Deferred by Provider
Musculoskeletal: Other (bilateral lower extremity 3+ associated with lymphedema with some pitting edema)
Skin: Warm and Dry
Neuro: Awake, Alert, Oriented and Nonfocal/grossly intact
Psych: Calm
A/P:
Acute on Chronic HFrEF:
IV diuretics, Lasix 80 mg twice a day
Requires intensive monitoring
BNP upon admission more than 27,000
Monitor strict I/O
Monitor daily weight
Monitor renal function and electrolytes
Reviewed latest echocardiogram on our system--> EF 35 to 40% on 10/03
Continue guideline-directed medical therapy for heart failure (GDMT)--> B-Blockers, and hydralazine and nitrates. Rest of GDMT limited by renal function and hypotension including Gianluca Inh/ARB/ARNI, MRA, SGLT-i.
Fluid restriction
Salt restriction
Heart failure education
Follow up clinical response
Cardiology consult appreciated
Acute Kidney Injury on CKD IV, suspect cardiorenal syndrome
-Creatinine 4.7 today (last creatinine 2.6 on 10/07)
-Consult Nephrology appreciated--> discussed with nephrology today on 11/03
-renal ultrasound--> no hydronephrosis and normal kidney appearance
-Monitor bladder scans
-Patient received IVFs in ED--> stopped IV fluids and on IV diuretics now.
-On IV diuresis now.
-If not improvement as above might need to consider HD
Metabolic Acidosis
-Likely related to renal failure
-Bicarb improving from 14 up to 20 today
Persistent A-Fib:
-Continue Eliquis for anticoagulation
-Continue metoprolol for rate control
ASCVD
-Continue Lipitor
-Continue Isosorbide Mononitrate
Essential Hypertension
-Continue hydralazine and metoprolol with hold parameters
Diabetes Mellitus, Type II - Uncontrolled
-HgbA1c 10.8 in Sep 2024
-Decrease Lantus and NovoLog doses in setting of ANDI
-Monitor sugars and continue coverage insulin
Anemia of Chronic Disease
-Hgb stable
Anxiety/Depression
-Continue buspirone and mirtazapine
GERD
-Continue Protonix
DVT proph: Eliquis
Code Status: DNR
Total time spent on today's encounter was 52 minutes which included time spent in counseling the patient/family regarding diagnosis and treatment plan as listed above, goals of care, and symptom management. Case was discussed with nursing staff,
specialists, and care coordinators/case management. All labs and imaging personally reviewed by me. Remainder the time spent in detailed review of previous records, lab data, imaging, and other medical provider documentation.
Anticipated Discharge: > 48 hours
Subjective/Interval History
-
Date of Service: November 03, 2024
Still having peripheral edema. Less shortness of breath overall. No chest pain. Afebrile
Objective Data
-
Labs:
Laboratory Results
11/03/24
05:50
WBC 4.5 L
Hgb 9.9 L
Hct 32.9 L
Plt Count 110 L
Sodium 143
Potassium 4.2
Chloride 111 H
Carbon Dioxide 20 L
BUN 108 H*
Creatinine 4.7 H*
Glucose 168 H
Calcium 8.3 L
Vital Signs:
Vital Signs
Temp Pulse Resp BP Pulse Ox
97.6 F 60 18 124/60 98
11/03/24 07:39 11/03/24 07:39 11/03/24 07:39 11/03/24 07:39 11/03/24 07:39
I&O
11/02/24 11/03/24 11/04/24
06:59 06:59 06:59
Intake Total 720 / 720
Output Total 525 / 525
Balance 195 / 195
--- NOTE | 2024-11-03 09:17 | W.PN.CD ---
Today's Communication / Plan
-
continue IV lasix
Impression / Plan
-
Hzliu-lm-sqqidch HFrEF:
-weight is up significantly (76 kg-->92 kg), with significant edema
-continue lasix 80mg IV bid, with close monitoring of labs, tele, weight
ICM EF 35-40%
-on echo 10/03/24
-with mild AR and moderate TR, PASP 71
-GDMT limited by renal function: continue Toprol XL, hydralazine, imdur
ANDI on CKD:
-Cr 2.6-->4.7
-nephrology has been consulted
-monitor response to diuresis
Persistent AFIB:
-rate-controlled
-continue Eliquis and metoprolol
CAD with hx CABG:
-denies any CP
-continue Eliquis, metoprolol, statin
Pacemaker:
-stable
Physical Exam
Vital Signs/Labs
Vital Signs
Temp Pulse Resp BP Pulse Ox
97.6 F 60 18 124/60 98
11/03/24 07:39 11/03/24 07:39 11/03/24 07:39 11/03/24 07:39 11/03/24 07:39
11/02/24 11/03/24 11/04/24
06:59 06:59 06:59
Actual Weight 88.904 kg
11/03/24 05:50
11/03/24 05:50
Magnesium 2.7 mg/dl (1.6-2.3) H 11/03/24 05:50
11/02/24
13:05
Qto-T-Yutzdcrlxyv Pept > [id number]
LAB Results
11/02/24 11/02/24 11/02/24
15:05 15:46 21:55
Troponin I Cancelled 0.072 H* 0.071 H*
11/03/24
05:50
Troponin I 0.084 H*
Physical Exam
Constitutional: No acute distress and Comfortable
Cardiovascular: Rhythm/rate is irregular, Pedal edema present, JVD present and Systolic murmur present
Respiratory: Respiratory effort normal and Lungs clear to auscul.
Neuro/Psych: Alert
Data Reviewed
-
Date of Service: November 03, 2024
EKG: Other (Tele: A fib, V paced 60)
Labs: Labs Reviewed by me
[2024-11-03 11:28] LABS: Glucose - Point of Care 253 mg/dl (70-99)
--- NOTE | 2024-11-03 11:30 | WOUNDNOTE ---
L 2ND TOE
--- NOTE | 2024-11-03 11:30 | WOUNDNOTE ---
RLE (LOWER LATERAL)
--- NOTE | 2024-11-03 11:30 | WOUNDNOTE ---
L ISCHIUM (TUNNELS ABOUT 4.5CM TO BONE)
--- NOTE | 2024-11-03 12:19 | WOUNDNOTE ---
[facility] RN note: Patient admitted with acute renal failure. Patient admitted from [facility].
See H&P for complete history.
PMH: CAD, CABG, a fib (Eliquis), HF, ICD, pacer, CKD3, former smoker, colostomy, DM, lymphedema, L ischial and sacral pressure injuries.
Wound Location and type/assessment: Patient admitted with: chronic stage 4 L ischial pressure injury which probes to bone, mild MARSI adjacent to L ischial pressure injury, stage 3 sacral pressure injury with linear purple discolored skin suspect
could be a DTI. L groin linear dermal ulcer r/t moisture. Blanchable red heels. Dry scab on bilateral dorsal foot. +LE edema (L always<R), toes warm. 10/01/24 Bilateral LE venous Doppler was negative for DVT. Patient confirmed she wears knee high
Tubigrip.
Appetite: good for breakfast.
Pressure redistribution devices in place: Waffle air overlay. Heels off bed with pillow.
Plan: Sacral dressing changed. L ischial wound care done. Patient turned with help from RN student Janis. Heels off bed with pillow. Air chair cushion given. [place] texted Dr. Bermudez update including L ischial stage 4 pressure injury probes
to bone suspect osteomyelitis; defer to hospitalist if X-ray indicated and requested local wound care, air overlay or air mattress, limit sitting to 1 hr BID with air chair cushion and bilateral knee high Tubigrip as tolerated (remove q hs). Await
response.
Care plan to be updated and will follow as needed.
Note to case management of equipment requested for discharge: Air mattress if not already in place.
Recommend follow up at wound care center upon discharge.
--- NOTE | 2024-11-03 12:50 | CM ---
Reviewed chart, received consult for medication pricing. Placed a call to [facility] in [place] on [address] where patient gets her medications. Spoke with a pharmacist named, Cely, who confirmed the following prices: Entresto 24/26 mg PO
BID-$162.50
Jardiance 10 mg daily $144.33
Farxiga 10 mg daily 137.52
all 30 day supply
Note regarding costs sent in referral.
Placed a call to patient's son Lee (Jim) who stated that patient was at [facility] skilled for a few weeks post her last discharge from acute care. Patient is not ambulatory due to swelling and is mainly in a w/c.
Patient's son is not holding the bed and would not like for her to return to [facility] when cleared for discharge. He relayed that she has also been to [facility] and he would not like for patient to return there either.
Per RN, patient is alert and oriented. She was asleep when CM went to do the assessment. Per son, she can feed herself and perform self care but right now needs assistance with all ADLs, personal care, bathing and dressing. He stated that he lives
close to patient and is very supportive.
Patient's son agreeable to reviewing facilities in the area where patient can transfer. Will wait to make referrals to determine whether patient needs dialysis or other accommodations.
Nephrology consult ordered per chart.
Plan: Case management will continue to follow and assist with discharge planning. SNF when stable. Will watch for dialysis needs.
--- NOTE | 2024-11-03 12:55 | WOUNDNOTE ---
[facility] RN note: Patient seen about 11:30am. Patient admitted with acute renal failure. Patient admitted from [facility].
See H&P for complete history.
PMH: CAD, CABG, a fib (Eliquis), HF, ICD, pacer, CKD3, former smoker, colostomy, DM, lymphedema, L ischial and sacral pressure injuries.
Wound Location and type/assessment: Patient admitted with: chronic stage 4 L ischial pressure injury which probes to bone, mild MARSI adjacent to L ischial pressure injury, stage 3 sacral pressure injury with linear purple discolored skin suspect
could be a DTI. R lateral lower calf healing broken blister. L groin linear dermal ulcer r/t moisture. Blanchable red heels. Dry scab on bilateral dorsal foot. +LE edema (L always<R), toes warm. 10/01/24 Bilateral LE venous Doppler was negative for
DVT. Patient confirmed she wears knee high Tubigrip.
Appetite: good for breakfast.
Pressure redistribution devices in place: Waffle air overlay. Heels off bed with pillow.
Plan: Sacral dressing changed. L ischial wound care done. Patient turned with help from RN student Janis. Heels off bed with pillow. Air chair cushion given. Updated Dr. Bermudez including L ischial stage 4 pressure injury probes to bone
suspect osteomyelitis; defer to hospitalist if X-ray indicated and requested local wound care, air overlay or air mattress, limit sitting to 1 hr BID with air chair cushion and bilateral knee high Tubigrip as tolerated (remove q hs). Dr. Bermudez
approved local skin/wound care, Tubigrip, air overlay or air mattress, limit sitting 1hr bid with air cushion.
Care plan to be updated and will follow as needed.
Note to case management of equipment requested for discharge: Air mattress if not already in place.
Recommend follow up at wound care center upon discharge.
[2024-11-03] MEDS: NOVOLOG FLEXPEN-MODERATE RESISTANCE 5 UNITS SC (13:04)
--- NOTE | 2024-11-03 14:30 | W.PN.NEPH.PH ---
Today's Communication / Plan
-
Add 500 mg IV Diuril
Maintain 80 mg IV Lasix BID
Question if heart failure would be responsive to inotropic therapy (will defer to Cardiology)
Assessment/Plan
-
Assessment
CKD4 (2.6)
ANDI
Metabolic acidosis
diabetes mellitus type 2 with proteinuria
Heart failure reduced ejection fractionEF 30-35%
Paroxysmal atrial fibrillation
Ileostomy
Failure to thrive
Plan
Patient weight up over 15 kg since discharge
Volume overloaded on exam, will initiate diuresis
continue lasix 80mg IV BID, urine output ~425cc via jalloh, will add diural 500mg IV times one
continue Jalloh as postvoid ultrasound was not discernible
ER ordered kidney and bladder ultrasound
proBNP greater than 27,000
Obtain chest x-ray
Accurate I's and O, daily weights
No acute dialysis requirement today
-
-
Date of Service: November 03, 2024
CC / HPI / ROS
-
Chief Complaint:
Acute kidney injury
History of Present Illness:
Creatinine unchanged at 4.7 BUN greater than 100
Hemodynamically stable
Review of Systems:
Urine output unimpressive following IV Lasix
Weights essentially unchanged
Patient remains on nasal cannula oxygen but appears comfortable
Labs
-
Labs:
WBC 4.5 10^3/uL (4.8-10.8) L 11/03/24 05:50
RBC 3.37 10^6/uL (4.20-5.40) L 11/03/24 05:50
Hgb 9.9 g/dL (12.0-16.0) L 11/03/24 05:50
Hct 32.9 % (37.0-47.0) L 11/03/24 05:50
Plt Count 110 10^3/uL (130-400) L 11/03/24 05:50
Sodium 143 mmol/L (135-145) 11/03/24 05:50
Potassium 4.2 mmol/L (3.5-5.1) 11/03/24 05:50
Chloride 111 mmol/L (98-107) H 11/03/24 05:50
Carbon Dioxide 20 mmol/L (22-30) L 11/03/24 05:50
BUN 108 mg/dl (7-17) H* 11/03/24 05:50
Creatinine 4.7 mg/dL (0.6-1.0) H* 11/03/24 05:50
eGFR 9.35 11/03/24 05:50
Glucose 168 mg/dl (70-99) H 11/03/24 05:50
Calcium 8.3 mg/dl (8.4-10.2) L 11/03/24 05:50
Nvv-R-Wtoqdwpesdc Pept > 74555 pg/ml 11/02/24 13:05
Albumin 3.3 g/dl (3.5-5.0) L 11/02/24 10:47
Physical Exam
-
Vital Signs:
Vital Signs
Temp Pulse Resp BP Pulse Ox
97.7 F 61 16 116/47 97
11/03/24 10:49 11/03/24 10:49 11/03/24 10:49 11/03/24 10:49 11/03/24 10:49
Cardiovascular:: Regular rate and rhythm
Respiratory:: Bilateral: Coarse
Lung Excursion:: Normal
Abdomen:: Nontender and Soft
Bowel Sounds:: Normal
Extremity Edema:: +2: Bilateral:
Jalloh Catheter: Yes
[2024-11-03] MEDS: DIURIL 0.5 GRAM VIAL 0.5 GRAMS IV (15:11)
[2024-11-03] MEDS: STERILE WATER FOR INJECTION 18 ML INJ (15:12)
--- NOTE | 2024-11-03 15:50 | WOUNDNOTE ---
[facility] RN note: Pedrito Aly re: recommend air mattress at SNF if not already in place.
[2024-11-03 16:43] LABS: Glucose - Point of Care 243 mg/dl (70-99)
[2024-11-03] MEDS: APRESOLINE PO ×3 (17:05→21:28)
[2024-11-03] MEDS: NOVOLOG FLEXPEN-MODERATE RESISTANCE 3 UNITS SC (17:08)
[2024-11-03] MEDS: LIPITOR 40 MG PO (21:29)
[2024-11-03] MEDS: REMERON 7.5 MG PO (21:29)
[2024-11-03] MEDS: ANTIFUNGAL CLEAR 1 APPLIC TOPICAL (21:31)
[2024-11-03] MEDS: LANTUS 0.12 UNITS SC (21:32)
[2024-11-03 21:51] LABS: Glucose - Point of Care 228 mg/dl (70-99)
[2024-11-04 03:00] VITALS: BP 112/44
[2024-11-04 06:00] VITALS: BMI 31.8
[2024-11-04 07:05] VITALS: BP 126/57
[2024-11-04 07:24] LABS: Hematocrit 32.6 % (37.0-47.0); Hemoglobin 9.7 g/dL (12.0-16.0); Mean Corp Hgb Conc. 29.8 g/dL (33.0-37.0); Mean Corpuscular Hgb 29.3 pg (27.0-31.0); Mean Corpuscular Volume 98.5 fL (81.0-99.0); Red Blood Cell Count 3.31 10^6/uL (4.20-5.40); Red Cell Dist. Width 18.4 % (11.5-14.5); White Blood Cell Count 3.8 10^3/uL (4.8-10.8)
--- NOTE | 2024-11-04 07:24 | W.PN.CD ---
Today's Communication / Plan
-
Repeat chlorothiazide 500 mg 30 minutes prior to furosemide.
Monitor UOP, renal function.
Impression / Plan
-
Impression/Plan: 74 y/o female with SSS s/p PPM, persistent atrial fibrillation, CAD s/p CABG and ICMO admitted with decompensated HFrEF with ANDI, found to have severe decubitus ulcers.
#HFrEF
-Acute on chronic.
-Weight is rising (possibly incorrect measurement).
-Labs pending.
-Repeat chlorothiazide 500 mg 30 minutes prior to furosemide today.
-This may be due to approaching ESRD.
-GDMT with metprolol. Hydralazine/isosorbide mononitrate on hold due to BP.
#ICM
-Chronic.
-LVEF = EF 35-40% with mild AI, moderate TR (TTE, 10/03/2024).
-GDMT limited by renal function.
#ANDI
-Acute on chronic.
-Cr 2.6-->4.7
-Nephrology has been consulted - recommendations appreciated.
-The question will be if renal dysfunction is cardiorenal syndrome or if she is approaching intrinsic ESRD leading to volume retention.
-Given improvement in UOP, I am hoping that it is CRS and that renal function will begin to improve with improved filling pressures.
#Decubitus ulcers
-Acute/new diagnosis.
-Wound management following.
-Air mattress ordered.
#Atrial fibrillation
-Persistent, currently in atrial fibrillation.
-Rate control with metoprolol.
-CHADS2-Vasc = 4 (CHF, Age x1, vascular disease, female gender).
-Therapeutic anticoagulation with apixaban.
#CAD
-Acute on chronic.
-hx CABG (TRAORE to LAD, SVG to OM, SVG to RPDA).
-Secondary prevention with high dose, high potency statin.
-Continue metoprolol.
#SSS/Pacemaker
-Chronic, stable.
Subjective/Interval History:
Chlorothiazide added to furosemide yesterday.
Weight is up 3 kg (?). This appears to be a discrepancy from the ER to the floor.
BP remains stable.
UOP is improved with addition of thiazide to loop diuretic yesterday.
DATA:
TTE, 10/03/2024:
CONCLUSIONS
Normal LV size with moderately reduced systolic function. LVEF 35-40%.
Akinesis of the mid to distal septal wall and apex.
Right ventricle is moderately dilated with mildly reduced systolic function.
Mild mitral regurgitation
Mild to moderate aortic regurgitation.
Moderate tricuspid regurgitation. Estimated PASP 71 mmHg.
Compared to prior echocardiogram on 05/12/2023, there is no significant change.
Physical Exam
Vital Signs/Labs
Vital Signs
Temp Pulse Resp BP Pulse Ox
36.3 C 61 20 112/44 94
11/04/24 03:00 11/04/24 03:00 11/04/24 03:00 11/04/24 03:00 11/04/24 03:00
11/02/24 11/03/24 11/04/24
11:59 11:59 11:59
Actual Weight 88.904 kg 91.989 kg
11/04/24 06:31
Magnesium 2.7 mg/dl (1.6-2.3) H 11/03/24 05:50
11/02/24
13:05
Mbl-Z-Nkqpkybowel Pept > 06260
LAB Results
11/02/24 11/02/24 11/02/24
15:05 15:46 21:55
Troponin I Cancelled 0.072 H* 0.071 H*
11/03/24
05:50
Troponin I 0.084 H*
Physical Exam
Constitutional: No acute distress and Comfortable
EENT: Anicteric and Moist mucous membranes
Cardiovascular: Rhythm/rate is irregular, Pedal edema present, JVD present, S1S2 is normal and Murmur/rub/gallop absent
Respiratory: Respiratory effort normal and Lungs clear to auscul.
GI: Soft, Distention absent, Flat, Non tender and Normal bowel sounds
Neuro/Psych: AO x 3
Data Reviewed
-
Date of Service: November 04, 2024
Medical Decision Making: Reviewed Test Results, Independent Historian Assessment, Test Interpretation and Review of Case with other Provider
EKG: Tracing Personally Visualized and interpreted and Report Reviewed by me
X-Ray/CT/US/MRI/NUC/PET: Image Personally Visualized and interpreted and Report Reviewed by me
Medical Tests (PFT, Pathology etc): Report Reviewed by me
Labs: Labs Reviewed by me
Old Records: Reviewed
[2024-11-04 07:38] LABS: Glucose - Point of Care 213 mg/dl (70-99)
[2024-11-04 07:58] LABS: Blood Urea Nitrogen 112 mg/dl (7-17); Calcium 8.2 mg/dl (8.4-10.2); Carbon Dioxide 17 mmol/L (22-30); Chloride 111 mmol/L (98-107); Estimated Creatinine Clearance 13 ml/min; Glucose 184 mg/dl (70-99); Potassium 4.3 mmol/L (3.5-5.1); Sodium 140 mmol/L (135-145); eGFR 9.85
--- NOTE | 2024-11-04 08:02 | PN.CDI ---
CDI
- -
CDI:
Physician Documentation Request
Admit Date: 11/02/24 13:59
Dear Doctor Lara,
Please review the following and provide your response in the progress notes.
Clinical Indicators:
11/03/24 12:55 (created 11/03/24 15:42) - Wound Note
#Wound Location and type/assessment:
#Patient admitted with:
#...chronic stage 4 L ischial pressure injury which probes to bone,
#...mild MARSI adjacent to L ischial pressure injury,
#...stage 3 sacral pressure injury
#...with linear purple discolored skin suspect could be a DTI.
Physician documentation of the type and location of wounds is required for compliant documentation. Based on the above clinical findings and your assessment, please provide the following in your progress note:
Location of the ulcer/wound, including laterality.
Type (etiology) of ulcer/wound:
Diabetic ulcer
Arterial (ischemic) ulcer
Pressure (decubitus) ulcer
Other (please specify)
For a pressure ulcer, please also include the stage* of the ulcer:
Stage 1 - Skin intact, non-blanchable redness
Stage 2 - Partial thickness loss of dermis, includes intact or open blister
Stage 3 - Full thickness tissue not including bone, tendon or muscle
Stage 4 - Full thickness tissue loss, including exposed bone, tendon or muscle
Unstageable - Full thickness loss in which the base of the ulcer is covered by slough (yellow, aguila, portillo, green or brown) and/or eschar (aguila, brown or black) in the wound bed.
Use of terms such as suspected, likely, concern for, or probable (associated with a specific diagnosis that is being evaluated, monitored, or treated as if it exists) are acceptable and can be coded in the inpatient setting, when documented at the
time of discharge.
Thank you,
Brenna Christiansen RN BSN CCDS
CDI Specialist
please contact via tiger text
Please use your independent medical judgment in providing your response.
*Source: National Pressure Ulcer Advisory Panel (NPUAP)
--- NOTE | 2024-11-04 08:11 | PN.CDI ---
CDI
- -
CDI:
Physician Documentation Request
Admit Date: 11/02/24 13:59
Dear Doctor Lara,
Please review the following and provide your response in the progress notes.
Clinical Indicators:
Laboratory Tests
11/02/24 11/02/24 11/03/24
15:46 21:55 05:50
Troponin I 0.072 H* 0.071 H* 0.084 H*
Based on the above, please clarify in the progress notes, the appropriate diagnosis, if significant, that supports the above abnormalities and additional evaluation, monitoring and/or treatment rendered:
Non Ischemic Myocardial Injury
Abnormal lab value, clinically insignificant
Other (please specify)
Use of terms such as suspected, likely, concern for, or probable (associated with a specific diagnosis that is being evaluated, monitored, or treated as if it exists) are acceptable and can be coded in the inpatient setting, when documented at the
time of discharge.
Thank you,
Brenna Christiansen RN BSN CCDS
CDI Specialist
please contact via tiger text
Please use your independent medical judgment in providing your response.
--- NOTE | 2024-11-04 08:14 | PN.CDI ---
CDI
- -
CDI:
Physician Documentation Request
Admit Date: 11/02/24 13:59
Dear Doctor Lara,
Please review the following and provide your response in the progress notes.
Clinical Indicators:
Laboratory Tests
11/03/24 11/04/24
05:50 06:31
WBC 4.5 L 3.8 L
RBC 3.37 L 3.31 L
Plt Count 110 L
Based on the above, please clarify in the progress notes, the appropriate diagnosis, if significant, that supports the above abnormalities and additional evaluation, monitoring and/or treatment rendered:
Pancytopenia
Abnormal lab values, clinically insignificant
Other (please specify)
Use of terms such as suspected, likely, concern for, or probable (associated with a specific diagnosis that is being evaluated, monitored, or treated as if it exists) are acceptable and can be coded in the inpatient setting, when documented at the
time of discharge.
Thank you,
Brenna Christiansen RN BSN CCDS
CDI Specialist
please contact via tiger text
Please use your independent medical judgment in providing your response.
[2024-11-04] MEDS: TOPROL XL 50 MG PO (08:38)
[2024-11-04] MEDS: PROTONIX 40 MG PO (08:39)
[2024-11-04] MEDS: IMDUR (EXTENDED RELEASE) 30 MG PO (08:39)
[2024-11-04] MEDS: APRESOLINE 25 MG PO ×2 (08:39→16:57)
[2024-11-04] MEDS: ELIQUIS 5 MG PO ×2 (08:39→22:14)
[2024-11-04] MEDS: FEOSOL 325 MG PO (08:39)
[2024-11-04] MEDS: VITAMIN B-12 1000 MCG PO (08:40)
[2024-11-04] MEDS: BUSPAR 5 MG PO ×2 (08:40→22:14)
[2024-11-04 09:02] LABS: Mean Platelet Volume 10.6 fL (7.4-10.4); Platelet Count 87 10^3/uL (130-400)
--- NOTE | 2024-11-04 09:08 | W.PN.HOSP.TC ---
Addendum entered and electronically signed by Carlos Bermudez MD 11/04/24 16:03:
Updated son over the phone today
Addendum entered and electronically signed by Carlos Bermudez MD 11/04/24 13:55:
Elevated troponin due to non myocardial ischemic injury.
Pancytopenia.
Stage IV left ischial pressure injury, present on admission
Stage III sacral pressure injury, POA
Original Note:
Today's Communication/Plan
-
Aggressive IV diuresis. Intensive monitoring. Doppler left upper extremity.
Assessment / Plan
Assessment / Plan
Physical Exam
General: Acutely ill
HEENT: Anicteric and Moist mucous membranes
Respiratory: Rales (Bilateral Bases) and Non Labored Respirations
Cardiac: S1/S2 and irregular rate and rhythm, systolic murmur
GI: Soft and Non Tender
Rectal: Deferred by Provider
Musculoskeletal: Other (bilateral lower extremity 3+ associated with lymphedema with some pitting edema)
Skin: Warm and Dry
Neuro: Awake, Alert, Oriented and Nonfocal/grossly intact
Psych: Calm
A/P:
Acute on Chronic HFrEF:
IV diuretics, Lasix 80 mg twice a day
s/p IV Diuril 500 mg on 11/03
Requires intensive monitoring
BNP upon admission more than 27,000
Monitor strict I/O
Monitor daily weight
Monitor renal function and electrolytes
Reviewed latest echocardiogram on our system--> EF 35 to 40% on 10/03
Continue guideline-directed medical therapy for heart failure (GDMT)--> B-Blockers, hydralazine and nitrates and at times on hold due to hypotension. Rest of GDMT limited by renal function and hypotension including Gianluca Inh/ARB/ARNI, MRA, SGLT-i.
Fluid restriction
Salt restriction
Heart failure education
Follow up clinical response
Cardiology consult appreciated
Acute Kidney Injury on CKD IV, suspect cardiorenal syndrome
-Creatinine 4.5 today from 4.7 Y'day (last creatinine 2.6 on 10/07)
-Consult Nephrology appreciated--> discussed with nephrology today on 11/03
-renal ultrasound--> no hydronephrosis and normal kidney appearance
-Monitor bladder scans
-Patient received IVFs in ED--> stopped IV fluids and on IV diuretics now.
-On IV diuresis now.
-If not improvement as above might need to consider HD
-She tells me that she had a Doppler of the left lower extremity last week but I cannot locate the report. Obtain Doppler today of LUE and elevate extremity (she is on anticoagulation).
Metabolic Acidosis
-Likely related to renal failure
-Bicarb improving from 14 up to 20 today
Persistent A-Fib:
-Continue Eliquis for anticoagulation
-Continue metoprolol for rate control
ASCVD
-Continue Lipitor
-Continue Isosorbide Mononitrate
Essential Hypertension
-Continue hydralazine and metoprolol with hold parameters
Diabetes Mellitus, Type II - Uncontrolled
-HgbA1c 10.8 in Sep 2024
-Decrease Lantus and NovoLog doses in setting of ANDI
-Monitor sugars and continue coverage insulin
Anemia of Chronic Disease
-Hgb stable
Thrombocytopenia
-Continue to monitor closely
Anxiety/Depression
-Continue buspirone and mirtazapine
GERD
-Continue Protonix
DVT proph: Eliquis
Code Status: DNR
Total time spent on today's encounter was 52 minutes which included time spent in counseling the patient/family regarding diagnosis and treatment plan as listed above, goals of care, and symptom management. Case was discussed with nursing staff,
specialists, and care coordinators/case management. All labs and imaging personally reviewed by me. Remainder the time spent in detailed review of previous records, lab data, imaging, and other medical provider documentation.
Anticipated Discharge: > 48 hours
Subjective/Interval History
-
Date of Service: November 04, 2024
Patient still having some significant peripheral edema. Left upper extremity more swollen than the right and some discomfort. She does notice that she lies on her left side. No chest pain.
Objective Data
-
Labs:
Laboratory Results
11/04/24
06:31
WBC 3.8 L
Hgb 9.7 L
Hct 32.6 L
Plt Count 87 L D
Sodium 140
Potassium 4.3
Chloride 111 H
Carbon Dioxide 17 L
BUN 112 H*
Creatinine 4.5 H*
Glucose 184 H
Calcium 8.2 L
Vital Signs:
Vital Signs
Temp Pulse Resp BP Pulse Ox
98.1 F 61 16 126/57 97
11/04/24 07:05 11/04/24 08:39 11/04/24 07:05 11/04/24 08:39 11/04/24 07:05
I&O
11/03/24 11/04/24 11/05/24
06:59 06:59 06:59
Intake Total 720 / 720 920 / 920
Output Total 525 / 525 770 / 770
Balance 195 / 195 150 / 150
[2024-11-04] MEDS: NOVOLOG FLEXPEN 4 UNITS SC ×2 (09:33→13:49)
[2024-11-04] MEDS: NOVOLOG FLEXPEN-MODERATE RESISTANCE 3 UNITS SC (09:33)
[2024-11-04] MEDS: STERILE WATER FOR INJECTION 18 ML IV (09:35)
[2024-11-04] MEDS: DIURIL 0.5 GRAM VIAL 0.5 GRAMS IV (09:35)
[2024-11-04] MEDS: LASIX 80 MG IV ×2 (10:37→16:58)
[2024-11-04] MEDS: ANTIFUNGAL CLEAR 1 APPLIC TOPICAL ×2 (10:38→22:13)
[2024-11-04] MEDS: HYDROPHOR 1 APPLIC TOPICAL (10:38)
[2024-11-04 11:25] VITALS: BP 128/54
[2024-11-04 11:41] LABS: Glucose - Point of Care 273 mg/dl (70-99)
[2024-11-04] MEDS: NOVOLOG FLEXPEN-MODERATE RESISTANCE 5 UNITS SC (13:48)
[2024-11-04 15:00] VITALS: BP 126/52
[2024-11-04 16:28] LABS: Glucose - Point of Care 271 mg/dl (70-99)
--- NOTE | 2024-11-04 17:16 | W.PN.NEPH.PH ---
Today's Communication / Plan
-
cont diuresis, add po bicarb
Assessment/Plan
-
Assessment
CKD4 (2.6)
ANDI
Metabolic acidosis
diabetes mellitus type 2 with proteinuria
Heart failure reduced ejection fractionEF 30-35%
Paroxysmal atrial fibrillation
Ileostomy
Failure to thrive
Plan
Patient weight up over 15 kg since discharge
Volume overloaded on exam,cont diuresis
continue lasix 80mg IV BID, diural 500mg IV times one-ordered by cards
continue Jalloh as postvoid ultrasound was not discernible-barely non oliguric
cr and BUN remains high
high risk of dialysis if pt fails to respond to diuretics -d/w pt
met acidosis-add po bicarb
Accurate I's and O, daily weights
No acute dialysis requirement today
-
-
Date of Service: November 04, 2024
CC / HPI / ROS
-
Chief Complaint:
Acute kidney injury
History of Present Illness:
Creatinine slightly down to 4.5, BUN greater than 100
Hemodynamically stable
hb no change at 9.7
wt up today , barely non oliguric with jalloh
Review of Systems:
Urine output unimpressive following IV Lasix
on RA, no resting sob or cp
no n/v
Labs
-
Labs:
WBC 3.8 10^3/uL (4.8-10.8) L 11/04/24 06:31
RBC 3.31 10^6/uL (4.20-5.40) L 11/04/24 06:31
Hgb 9.7 g/dL (12.0-16.0) L 11/04/24 06:31
Hct 32.6 % (37.0-47.0) L 11/04/24 06:31
Plt Count 87 10^3/uL (130-400) L D 11/04/24 06:31
Sodium 140 mmol/L (135-145) 11/04/24 06:31
Potassium 4.3 mmol/L (3.5-5.1) 11/04/24 06:31
Chloride 111 mmol/L (98-107) H 11/04/24 06:31
Carbon Dioxide 17 mmol/L (22-30) L 11/04/24 06:31
BUN 112 mg/dl (7-17) H* 11/04/24 06:31
Creatinine 4.5 mg/dL (0.6-1.0) H* 11/04/24 06:31
eGFR 9.85 11/04/24 06:31
Glucose 184 mg/dl (70-99) H 11/04/24 06:31
Calcium 8.2 mg/dl (8.4-10.2) L 11/04/24 06:31
Gez-P-Cexcdvffyla Pept > 59535 pg/ml 11/02/24 13:05
Albumin 3.3 g/dl (3.5-5.0) L 11/02/24 10:47
Physical Exam
-
Vital Signs:
Vital Signs
Temp Pulse Resp BP Pulse Ox
97.8 F 62 17 126/52 100
11/04/24 15:00 11/04/24 16:58 11/04/24 15:00 11/04/24 16:58 11/04/24 15:00
Cardiovascular:: Regular rate and rhythm
Respiratory:: Bilateral: Rales
Lung Excursion:: Normal
Abdomen:: Nontender and Soft
Extremity Edema:: +3: Bilateral:
Jalloh Catheter: Yes
[2024-11-04 19:02] VITALS: BP 115/41
[2024-11-04] MEDS: NOVOLOG FLEXPEN SC (20:53)
[2024-11-04 21:33] LABS: Glucose - Point of Care 313 mg/dl (70-99)
[2024-11-04] MEDS: NOVOLOG FLEXPEN-MODERATE RESISTANCE SC (22:11)
[2024-11-04] MEDS: LIPITOR 40 MG PO (22:14)
[2024-11-04] MEDS: SODIUM BICARBONATE 650 MG PO (22:14)
[2024-11-04] MEDS: REMERON 7.5 MG PO (22:14)
[2024-11-04] MEDS: LANTUS 0.12 UNITS SC (22:15)
[2024-11-04] MEDS: APRESOLINE PO (22:15)
[2024-11-04] MEDS: NOVOLOG FLEXPEN 7 UNITS SC (22:31)
[2024-11-04 23:05] VITALS: BP 117/49
[2024-11-05 02:26] LABS: Glucose - Point of Care 237 mg/dl (70-99)
[2024-11-05 03:20] VITALS: BP 115/47
[2024-11-05] MEDS: TYLENOL 650 MG PO (03:36)
[2024-11-05 06:00] VITALS: BMI 30.9
[2024-11-05 07:00] VITALS: BP 116/55
[2024-11-05] MEDS: LASIX 80 MG IV ×2 (07:41→16:30)
[2024-11-05] MEDS: IMDUR (EXTENDED RELEASE) 30 MG PO (07:42)
[2024-11-05] MEDS: VITAMIN B-12 1000 MCG PO (07:42)
[2024-11-05] MEDS: APRESOLINE 25 MG PO ×2 (07:42→16:30)
[2024-11-05] MEDS: BUSPAR 5 MG PO (07:42)
[2024-11-05] MEDS: PROTONIX 40 MG PO (07:42)
[2024-11-05] MEDS: TOPROL XL 50 MG PO (07:42)
[2024-11-05] MEDS: SODIUM BICARBONATE 650 MG PO ×2 (07:42→21:44)
[2024-11-05] MEDS: ELIQUIS 5 MG PO ×2 (07:42→21:43)
[2024-11-05] MEDS: FEOSOL 325 MG PO (07:43)
[2024-11-05 07:44] LABS: Hematocrit 30.4 % (37.0-47.0); Hemoglobin 9.6 g/dL (12.0-16.0); Mean Corp Hgb Conc. 31.6 g/dL (33.0-37.0); Mean Corpuscular Hgb 30.3 pg (27.0-31.0); Mean Corpuscular Volume 95.9 fL (81.0-99.0); Mean Platelet Volume 10.3 fL (7.4-10.4); Platelet Count 87 10^3/uL (130-400); Red Blood Cell Count 3.17 10^6/uL (4.20-5.40); Red Cell Dist. Width 18.1 % (11.5-14.5); White Blood Cell Count 4.1 10^3/uL (4.8-10.8)
[2024-11-05] MEDS: ANTIFUNGAL CLEAR 1 APPLIC TOPICAL ×2 (07:46→21:47)
[2024-11-05] MEDS: HYDROPHOR 1 APPLIC TOPICAL (07:46)
[2024-11-05 08:03] LABS: Blood Urea Nitrogen 114 mg/dl (7-17); Carbon Dioxide 21 mmol/L (22-30); Chloride 109 mmol/L (98-107); Estimated Creatinine Clearance 12 ml/min; Glucose 182 mg/dl (70-99); Potassium 3.7 mmol/L (3.5-5.1); Sodium 142 mmol/L (135-145); eGFR 9.35
[2024-11-05 08:32] LABS: Glucose - Point of Care 189 mg/dl (70-99)
--- NOTE | 2024-11-05 09:03 | W.PN.HOSP.TC ---
Today's Communication/Plan
-
IV Lasix. CT head.
Assessment / Plan
Assessment / Plan
Physical Exam
General: Acutely ill
HEENT: Anicteric and Moist mucous membranes
Respiratory: Rales (Bilateral Bases) and Non Labored Respirations
Cardiac: S1/S2 and irregular rate and rhythm, systolic murmur
GI: Soft and Non Tender
Rectal: Deferred by Provider
Musculoskeletal: Other (bilateral lower extremity 3+ associated with lymphedema with some pitting edema)
Skin: Warm and Dry
Neuro: Awake, Alert, Oriented and Nonfocal/grossly intact
Psych: Calm
A/P:
Acute on Chronic HFrEF:
IV diuretics, Lasix 80 mg twice a day
s/p IV Diuril 500 mg on 11/03
Requires intensive monitoring
BNP upon admission more than 27,000
Monitor strict I/O
Monitor daily weight
Monitor renal function and electrolytes
Reviewed latest echocardiogram on our system--> EF 35 to 40% on 10/03
Continue guideline-directed medical therapy for heart failure (GDMT)--> B-Blockers, hydralazine and nitrates and at times on hold due to hypotension. Rest of GDMT limited by renal function and hypotension including Gianluca Inh/ARB/ARNI, MRA, SGLT-i.
Fluid restriction
Salt restriction
Heart failure education
Follow up clinical response
Cardiology consult appreciated
Acute Kidney Injury on CKD IV, suspect cardiorenal syndrome
-Creatinine 4.7 today (creatinine 2.6 on 10/07)
-Consult Nephrology appreciated
-renal ultrasound--> no hydronephrosis and normal kidney appearance
-Monitor bladder scans
-Patient received IVFs in ED--> stopped IV fluids and on IV diuretics now.
-On IV diuresis now.
-If not improvement as above might need to consider HD
Metabolic Acidosis
-Likely related to renal failure
-Bicarb improving from 14 up to 20 today
Metabolic encephalopathy
-Hold buspirone and mirtazapine for now
-Obtain CT of the head without contrast
-Etiology could also be uremia related
Persistent A-Fib:
-Continue Eliquis for anticoagulation
-Continue metoprolol for rate control
ASCVD
-Continue Lipitor
-Continue Isosorbide Mononitrate
Essential Hypertension
-Continue hydralazine and metoprolol with hold parameters
Diabetes Mellitus, Type II - Uncontrolled
-HgbA1c 10.8 in Sep 2024
-Decrease Lantus and NovoLog doses in setting of ANDI
-Monitor sugars and continue coverage insulin
Anemia of Chronic Disease
-Hgb stable
Thrombocytopenia
-Continue to monitor closely
Anxiety/Depression
-Continue buspirone and mirtazapine
GERD
-Continue Protonix
DVT proph: Eliquis
Code Status: DNR
Total time spent on today's encounter was 52 minutes which included time spent in counseling the patient/family regarding diagnosis and treatment plan as listed above, goals of care, and symptom management. Case was discussed with nursing staff,
specialists, and care coordinators/case management. All labs and imaging personally reviewed by me. Remainder the time spent in detailed review of previous records, lab data, imaging, and other medical provider documentation.
Anticipated Discharge: > 48 hours
Subjective/Interval History
-
Date of Service: November 05, 2024
Patient has less shortness of breath and less peripheral edema. Sleepy overall and tired. Afebrile
Objective Data
-
Labs:
Laboratory Results
11/05/24
07:15
WBC 4.1 L
Hgb 9.6 L
Hct 30.4 L
Plt Count 87 L
Sodium 142
Potassium 3.7
Chloride 109 H
Carbon Dioxide 21 L
BUN 114 H*
Creatinine 4.7 H*
Glucose 182 H
Calcium 8.0 L
Vital Signs:
Vital Signs
Temp Pulse Resp BP Pulse Ox
97.6 F 62 14 121/54 96
11/05/24 07:00 11/05/24 07:42 11/05/24 07:00 11/05/24 07:42 11/05/24 07:00
I&O
11/04/24 11/05/24 11/06/24
06:59 06:59 06:59
Intake Total 920 / 920 960 / 960
Output Total 770 / 770 3030 / 3030
Balance 150 / 150 -2069 / -2069
[2024-11-05] MEDS: NOVOLOG FLEXPEN-MODERATE RESISTANCE 1 UNITS SC (09:15)
[2024-11-05] MEDS: NOVOLOG FLEXPEN 4 UNITS SC ×3 (09:15→17:55)
[2024-11-05 11:00] VITALS: BP 109/46
--- NOTE | 2024-11-05 11:47 | W.PN.CD ---
Addendum entered and electronically signed by Clint Arroyo MD 11/05/24 13:30:
74-year-old woman with persistent A-fib, sick sinus syndrome status post pacemaker, coronary disease status post CABG is here with heart failure and acute on chronic renal failure along with severe decubitus ulcers. Patient is severely fluid
overloaded and was resistant to diuretics. Finally she has started making urine. Continue diuresis. Creatinine is still elevated and expected to stay elevated.
Original Note:
Today's Communication / Plan
-
Con't IV diuresis with intensive monitoring of renal function
Impression / Plan
-
Impression/Plan: 74 y/o female with SSS s/p PPM, persistent atrial fibrillation, CAD s/p CABG and ICMO admitted with decompensated HFrEF with ANDI, found to have severe decubitus ulcers.
#HFrEF
-Acute on chronic.
-weight starting to trend down
-monitor renal function/nephrology following as well.
-GDMT with Metoprolol. Hydralazine/isosorbide mononitrate
#ICM
-Chronic.
-LVEF = EF 35-40% with mild AI, moderate TR (TTE, 10/03/2024).
-GDMT limited by renal function.
#ANDI
-Acute on chronic.
-Cr 2.6-->4.7
-Nephrology following
#Atrial fibrillation
-Persistent, currently in atrial fibrillation.
-Rate control with metoprolol.
-CHADS2-Vasc = 4 (CHF, Age x1, vascular disease, female gender).
-Therapeutic anticoagulation with apixaban.
#CAD
-Acute on chronic.
-hx CABG (TRAORE to LAD, SVG to OM, SVG to RPDA).
-Secondary prevention with high dose, high potency statin.
-Continue metoprolol.
#SSS/Pacemaker
-Chronic, stable.
Subjective/Interval History:
Pt denies CP,palps, SOB. Bilat LE edema. Juan in place.
DATA:
TTE, 10/03/2024:
CONCLUSIONS
Normal LV size with moderately reduced systolic function. LVEF 35-40%.
Akinesis of the mid to distal septal wall and apex.
Right ventricle is moderately dilated with mildly reduced systolic function.
Mild mitral regurgitation
Mild to moderate aortic regurgitation.
Moderate tricuspid regurgitation. Estimated PASP 71 mmHg.
Compared to prior echocardiogram on 05/12/2023, there is no significant change.
Physical Exam
Vital Signs/Labs
Vital Signs
Temp Pulse Resp BP Pulse Ox
97.6 F 62 14 121/54 96
11/05/24 07:00 11/05/24 07:42 11/05/24 07:00 11/05/24 07:42 11/05/24 07:00
11/04/24 11/05/24 11/06/24
06:59 06:59 06:59
Actual Weight 91.989 kg 89.499 kg
11/05/24 07:15
11/05/24 07:15
Magnesium 2.7 mg/dl (1.6-2.3) H 11/03/24 05:50
11/02/24
13:05
Lfc-E-Ogqebcmvjgu Pept > [id number]
LAB Results
11/02/24 11/02/24 11/02/24
15:05 15:46 21:55
Troponin I Cancelled 0.072 H* 0.071 H*
11/03/24
05:50
Troponin I 0.084 H*
Physical Exam
Cardiovascular: Rhythm & rate is regular and Pedal edema present (moderate bilat)
Respiratory: Respiratory effort normal and Crackles Present (few rales bases )
GI: Soft, Non tender and Normal bowel sounds
Neuro/Psych: AO x 3
Data Reviewed
-
Date of Service: November 05, 2024
Labs: Labs Reviewed by me
[2024-11-05 12:21] LABS: Glucose - Point of Care 273 mg/dl (70-99)
[2024-11-05 12:45] LABS: Magnesium 2.4 mg/dl (1.6-2.3)
[2024-11-05] MEDS: NOVOLOG FLEXPEN-MODERATE RESISTANCE 5 UNITS SC (13:20)
[2024-11-05 15:00] VITALS: BP 121/41
--- NOTE | 2024-11-05 15:08 | W.PN.NEPH.PH ---
Today's Communication / Plan
-
lasix, metolazone
Assessment/Plan
-
Assessment
CKD4 (2.6)
ANDI
Metabolic acidosis
diabetes mellitus type 2 with proteinuria
Heart failure reduced ejection fractionEF 30-35%
Paroxysmal atrial fibrillation
Ileostomy
Failure to thrive
Plan
Patient weight up over 15 kg since discharge
Volume overloaded on exam,cont diuresis
continue lasix 80mg IV BID, metolazone-ordered
continue Juan as postvoid ultrasound was not discernible-improving UOP
cr and BUN remains high
high risk of dialysis if pt fails to respond to diuretics or worsening renal function -d/w pt
met acidosis-cont po bicarb
Accurate I's and O, daily weights
No acute dialysis requirement today
-
-
Date of Service: November 05, 2024
CC / HPI / ROS
-
Chief Complaint:
Acute kidney injury
History of Present Illness:
Creatinine slightly up at 4.7, BUN greater than 114
Hemodynamically stable
hb no change at 9.6
wt up down only little ,
improved UOP with foely
Review of Systems:
on RA, no resting sob or cp
no n/v
Labs
-
Labs:
WBC 4.1 10^3/uL (4.8-10.8) L 11/05/24 07:15
RBC 3.17 10^6/uL (4.20-5.40) L 11/05/24 07:15
Hgb 9.6 g/dL (12.0-16.0) L 11/05/24 07:15
Hct 30.4 % (37.0-47.0) L 11/05/24 07:15
Plt Count 87 10^3/uL (130-400) L 11/05/24 07:15
Sodium 142 mmol/L (135-145) 11/05/24 07:15
Potassium 3.7 mmol/L (3.5-5.1) 11/05/24 07:15
Chloride 109 mmol/L (98-107) H 11/05/24 07:15
Carbon Dioxide 21 mmol/L (22-30) L 11/05/24 07:15
BUN 114 mg/dl (7-17) H* 11/05/24 07:15
Creatinine 4.7 mg/dL (0.6-1.0) H* 11/05/24 07:15
eGFR 9.35 11/05/24 07:15
Glucose 182 mg/dl (70-99) H 11/05/24 07:15
Calcium 8.0 mg/dl (8.4-10.2) L 11/05/24 07:15
Qjc-N-Dolvxmxlktn Pept > 88092 pg/ml 11/02/24 13:05
Albumin 3.3 g/dl (3.5-5.0) L 11/02/24 10:47
Physical Exam
-
Vital Signs:
Vital Signs
Temp Pulse Resp BP Pulse Ox
98.1 F 61 16 109/46 96
11/05/24 11:00 11/05/24 11:00 11/05/24 11:00 11/05/24 11:00 11/05/24 11:00
Cardiovascular:: Regular rate and rhythm
Respiratory:: Bilateral: Rales
Lung Excursion:: Normal
Abdomen:: Nontender and Soft
Extremity Edema:: +1: Bilateral:
Juan Catheter: Yes
[2024-11-05] MEDS: ZAROXOLYN 5 MG PO (16:30)
[2024-11-05 17:19] LABS: Glucose - Point of Care 339 mg/dl (70-99)
[2024-11-05] MEDS: NOVOLOG FLEXPEN-MODERATE RESISTANCE 7 UNITS SC (17:55)
[2024-11-05 19:00] VITALS: BP 115/40
[2024-11-05 21:30] LABS: Glucose - Point of Care 292 mg/dl (70-99)
[2024-11-05] MEDS: APRESOLINE PO (21:46)
[2024-11-05] MEDS: LIPITOR 40 MG PO (21:47)
[2024-11-05] MEDS: LANTUS 0.12 UNITS SC (21:50)
[2024-11-05 23:00] VITALS: BP 120/51
[2024-11-06] VITALS (7 sets, daily range): BP systolic 97–130; BP diastolic 35–63; BMI 30.7
[2024-11-06] MEDS: TYLENOL 650 MG PO (01:11)
[2024-11-06 06:47] LABS: Hematocrit 31.7 % (37.0-47.0); Hemoglobin 9.6 g/dL (12.0-16.0); Mean Corp Hgb Conc. 30.3 g/dL (33.0-37.0); Mean Corpuscular Hgb 29.2 pg (27.0-31.0); Mean Corpuscular Volume 96.4 fL (81.0-99.0); Platelet Count 88 10^3/uL (130-400); Red Blood Cell Count 3.29 10^6/uL (4.20-5.40); Red Cell Dist. Width 18.1 % (11.5-14.5); White Blood Cell Count 4.1 10^3/uL (4.8-10.8)
[2024-11-06 06:56] LABS: Blood Urea Nitrogen 120 mg/dl (7-17); Calcium 8.1 mg/dl (8.4-10.2); Carbon Dioxide 21 mmol/L (22-30); Chloride 108 mmol/L (98-107); Estimated Creatinine Clearance 13 ml/min; Glucose 205 mg/dl (70-99); Potassium 3.8 mmol/L (3.5-5.1); Sodium 140 mmol/L (135-145); eGFR 10.12
[2024-11-06 07:30] LABS: Glucose - Point of Care 208 mg/dl (70-99)
[2024-11-06] MEDS: NOVOLOG FLEXPEN 4 UNITS SC (09:10)
[2024-11-06] MEDS: NOVOLOG FLEXPEN-MODERATE RESISTANCE 3 UNITS SC ×2 (09:10→15:19)
--- NOTE | 2024-11-06 09:10 | W.PN.HOSP.TC ---
Today's Communication/Plan
-
IV Lasix. Monitor renal function and urine output.
Assessment / Plan
Assessment / Plan
Physical Exam
General: Acutely ill
HEENT: Anicteric and Moist mucous membranes
Respiratory: Rales (Bilateral Bases) and Non Labored Respirations
Cardiac: S1/S2 and irregular rate and rhythm, systolic murmur
GI: Soft and Non Tender
Rectal: Deferred by Provider
Musculoskeletal: Other (bilateral lower extremity 3+ associated with lymphedema with some pitting edema)
Skin: Warm and Dry
Neuro: Awake, Alert, sleepy overall but able to answer questions appropriately, oriented and Nonfocal/grossly intact
Psych: Calm
A/P:
Acute on Chronic HFrEF:
IV diuretics, Lasix 80 mg twice a day and Zaroxolyn.
s/p IV Diuril 500 mg on 11/03, 11/04, and 11/05
Requires intensive monitoring
BNP upon admission more than 27,000
Monitor strict I/O
Monitor daily weight
Monitor renal function and electrolytes
Reviewed latest echocardiogram on our system--> EF 35 to 40% and mild mitral regurgitation, mild to moderate aortic regurgitation, and moderate tricuspid regurgitation with PASP 71 mmHg on 10/03
Continue guideline-directed medical therapy for heart failure (GDMT)--> B-Blockers, hydralazine and nitrates and at times on hold due to hypotension. Rest of GDMT limited by renal function and hypotension including Gianluca Inh/ARB/ARNI, MRA, SGLT-i.
Fluid restriction
Salt restriction
Heart failure education
Follow up clinical response
Cardiology consult appreciated
Updated family prior
PT OT recommends skilled rehab when medically ready.
Acute Kidney Injury on CKD IV, suspect cardiorenal syndrome
-Creatinine 4.4 today and BUN 120; creatinine 4.7 upon admission (creatinine 2.6 on 10/07)
-Consult Nephrology appreciated
-renal ultrasound--> no hydronephrosis and normal kidney appearance
-Monitor bladder scans
-Patient received IVFs in ED--> stopped IV fluids and on IV diuretics now.
-On IV diuresis now.
-If not improvement might need to consider HD
Metabolic Acidosis
-Likely related to renal failure
-Bicarb improving from 14 up to 21 today
Metabolic encephalopathy
-Suspect etiology uremia related
-Obtained CT of the head without contrast and no acute intracranial abnormalities
-Restart buspirone and mirtazapine since I do not think they are a major contributor
Persistent A-Fib:
-Continue Eliquis for anticoagulation
-Continue metoprolol for rate control
ASCVD
-Continue Lipitor
-Continue Isosorbide Mononitrate
Essential Hypertension
-Continue hydralazine and metoprolol with hold parameters
Diabetes Mellitus, Type II - Uncontrolled
-HgbA1c 10.8 in Sep 2024
-Decreased Lantus and NovoLog doses in setting of ANDI upon admission--> BS persistently high so will increase gradually back up from 10 to 12 units Lantus and from 4 to 6 units NovoLog and more room to increase since home doses are 20 long acting
and 12 short acting insulin.
-Monitor sugars and continue coverage insulin
Anemia of Chronic Disease
-Hb 9.6 today
-Hgb stable
Thrombocytopenia
-Plt 88 today
-Continue to monitor closely
Anxiety/Depression
-Continue buspirone and mirtazapine
GERD
-Continue Protonix
DVT proph: Eliquis
Code Status: DNR
Total time spent on today's encounter was 52 minutes which included time spent in counseling the patient/family regarding diagnosis and treatment plan as listed above, goals of care, and symptom management. Case was discussed with nursing staff,
specialists, and care coordinators/case management. All labs and imaging personally reviewed by me. Remainder the time spent in detailed review of previous records, lab data, imaging, and other medical provider documentation.
Anticipated Discharge: > 48 hours
Subjective/Interval History
-
Date of Service: November 06, 2024
Patient with generalized weakness. Urine output is not that robust. Still edematous. No chest pain. Afebrile
Objective Data
-
Labs:
Laboratory Results
11/06/24
05:59
WBC 4.1 L
Hgb 9.6 L
Hct 31.7 L
Plt Count 88 L
Sodium 140
Potassium 3.8
Chloride 108 H
Carbon Dioxide 21 L
BUN 120 H*
Creatinine 4.4 H*
Glucose 205 H
Calcium 8.1 L
Vital Signs:
Vital Signs
Temp Pulse Resp BP Pulse Ox
97.9 F 61 16 121/54 97
11/06/24 07:57 11/06/24 07:57 11/06/24 07:57 11/06/24 07:57 11/06/24 07:57
I&O
11/05/24 11/06/24 11/07/24
06:59 06:59 06:59
Intake Total 960 / 960 479 / 479
Output Total 3030 / 3030 2200 / 2200
Balance -2070 / -2070 -1721 / -1721
[2024-11-06] MEDS: PROTONIX 40 MG PO (09:11)
[2024-11-06] MEDS: ELIQUIS 5 MG PO ×2 (09:11→21:17)
[2024-11-06] MEDS: APRESOLINE 25 MG PO ×2 (09:11→17:16)
[2024-11-06] MEDS: TOPROL XL 50 MG PO (09:11)
[2024-11-06] MEDS: HYDROPHOR 1 APPLIC TOPICAL (09:12)
[2024-11-06] MEDS: FEOSOL 325 MG PO (09:12)
[2024-11-06] MEDS: SODIUM BICARBONATE 650 MG PO ×2 (09:16→21:17)
[2024-11-06] MEDS: VITAMIN B-12 1000 MCG PO (09:17)
[2024-11-06] MEDS: ZAROXOLYN 5 MG PO (09:20)
[2024-11-06] MEDS: IMDUR (EXTENDED RELEASE) 30 MG PO (09:20)
[2024-11-06] MEDS: LASIX 80 MG IV (09:21)
[2024-11-06] MEDS: NOVOLOG FLEXPEN 2 UNITS SC (09:26)
[2024-11-06] MEDS: ANTIFUNGAL CLEAR 1 APPLIC TOPICAL ×2 (09:29→21:18)
--- NOTE | 2024-11-06 11:55 | W.PN.CD ---
Today's Communication / Plan
-
-Continue diuresis
Impression / Plan
-
Impression/Plan: 74 y/o female with SSS s/p PPM, persistent atrial fibrillation, CAD s/p CABG and ICMO admitted with decompensated HFrEF with ANDI, found to have severe decubitus ulcers.
#HFrEF
-Acute on chronic.
-weight starting to trend down
-monitor renal function/nephrology following as well.
-GDMT with Metoprolol. Hydralazine/isosorbide mononitrate
#ICM
-Chronic.
-LVEF = EF 35-40% with mild AI, moderate TR (TTE, 10/03/2024).
-GDMT limited by renal function.
#ANDI
-Acute on chronic.
-Cr 2.6-->4.7 and now with diuresis coming down to 4.4
-Nephrology following
-Continue IV diuresis with Lasix and metolazone
#Atrial fibrillation
-Persistent, currently in atrial fibrillation.
-Rate control with metoprolol.
-CHADS2-Vasc = 4 (CHF, Age x1, vascular disease, female gender).
-Therapeutic anticoagulation with apixaban.
#CAD
-Acute on chronic.
-hx CABG (TRAORE to LAD, SVG to OM, SVG to RPDA).
-Secondary prevention with high dose, high potency statin.
-Continue metoprolol.
#SSS/Pacemaker
-Chronic, stable.
Subjective/Interval History:
Pt denies CP,palps, SOB. Bilat LE edema. Confused
DATA:
TTE, 10/03/2024:
CONCLUSIONS
Normal LV size with moderately reduced systolic function. LVEF 35-40%.
Akinesis of the mid to distal septal wall and apex.
Right ventricle is moderately dilated with mildly reduced systolic function.
Mild mitral regurgitation
Mild to moderate aortic regurgitation.
Moderate tricuspid regurgitation. Estimated PASP 71 mmHg.
Compared to prior echocardiogram on 05/12/2023, there is no significant change.
Physical Exam
Vital Signs/Labs
Vital Signs
Temp Pulse Resp BP Pulse Ox
97.9 F 61 16 121/54 97
11/06/24 07:57 11/06/24 07:57 11/06/24 07:57 11/06/24 07:57 11/06/24 07:57
11/05/24 11/06/24 11/07/24
06:59 06:59 06:59
Actual Weight 89.499 kg 88.723 kg
11/06/24 05:59
11/06/24 05:59
Magnesium 2.4 mg/dl (1.6-2.3) H 11/05/24 07:15
11/02/24
13:05
Pmo-F-Arqxgqigkky Pept > [id number]
Physical Exam
Constitutional: No acute distress and Comfortable
EENT: Anicteric and Moist mucous membranes
Cardiovascular: Rhythm/rate is irregular, Pedal edema present, JVD present and Systolic murmur present
Respiratory: Respiratory effort normal and Crackles Present
GI: Soft and Normal bowel sounds
Neuro/Psych: Alert
Data Reviewed
-
Date of Service: November 06, 2024
Medical Decision Making: Reviewed Test Results
EKG: Tracing Personally Visualized and interpreted
Medical Tests (PFT, Pathology etc): Discussed with Patient
Labs: Labs Reviewed by me
Old Records: Reviewed
[2024-11-06 13:41] LABS: Glucose - Point of Care 243 mg/dl (70-99)
[2024-11-06] MEDS: NOVOLOG FLEXPEN 6 UNITS SC ×2 (15:19→18:20)
[2024-11-06] MEDS: LASIX IV (16:04)
--- NOTE | 2024-11-06 16:25 | W.PN.NEPH.PH ---
Today's Communication / Plan
-
hold pm lasix
labs in am
Assessment/Plan
-
Assessment
CKD4 (2.6)
ANDI
Metabolic acidosis
diabetes mellitus type 2 with proteinuria
Heart failure reduced ejection fractionEF 30-35%
Paroxysmal atrial fibrillation
Ileostomy
Failure to thrive
Plan
ANDI-cr improving to 4.2 but worsening azotemia on diiuretics
hold PM dose of lasix, hold metolazone
UOP seem to improve and wt better
If worsening azotemia and any uremic sym likely need HD in next 24-48hrs
continue Juan
BP stable
met acidosis-cont po bicarb
No acute dialysis requirement today
d/w nursing
-
-
Date of Service: November 06, 2024
CC / HPI / ROS
-
Chief Complaint:
Acute kidney injury
History of Present Illness:
Creatinine down to 4.2, BUN up at 120
Hemodynamically stable
hb no change at 9.6
wt up down only little ,
improved UOP with foely
per nursing was lethargic this am better now
Review of Systems:
on RA, no resting sob or cp
no n/v
?diarrhea , stool out put 400cc
Labs
-
Labs:
WBC 4.1 10^3/uL (4.8-10.8) L 11/06/24 05:59
RBC 3.29 10^6/uL (4.20-5.40) L 11/06/24 05:59
Hgb 9.6 g/dL (12.0-16.0) L 11/06/24 05:59
Hct 31.7 % (37.0-47.0) L 11/06/24 05:59
Plt Count 88 10^3/uL (130-400) L 11/06/24 05:59
Sodium 140 mmol/L (135-145) 11/06/24 05:59
Potassium 3.8 mmol/L (3.5-5.1) 11/06/24 05:59
Chloride 108 mmol/L (98-107) H 11/06/24 05:59
Carbon Dioxide 21 mmol/L (22-30) L 11/06/24 05:59
BUN 120 mg/dl (7-17) H* 11/06/24 05:59
Creatinine 4.4 mg/dL (0.6-1.0) H* 11/06/24 05:59
eGFR 10.12 11/06/24 05:59
Glucose 205 mg/dl (70-99) H 11/06/24 05:59
Calcium 8.1 mg/dl (8.4-10.2) L 11/06/24 05:59
Cxz-A-Ilupjkmljih Pept > 76991 pg/ml 11/02/24 13:05
Albumin 3.3 g/dl (3.5-5.0) L 11/02/24 10:47
Physical Exam
-
Vital Signs:
Vital Signs
Temp Pulse Resp BP Pulse Ox
98.4 F 61 16 122/57 96
11/06/24 12:08 11/06/24 12:08 11/06/24 12:08 11/06/24 12:08 11/06/24 12:08
Cardiovascular:: Regular rate and rhythm
Respiratory:: Bilateral: Rales
Lung Excursion:: Normal
Abdomen:: Nontender and Soft
Extremity Edema:: +3: Bilateral:
Juan Catheter: Yes
[2024-11-06 17:05] LABS: Glucose - Point of Care 287 mg/dl (70-99)
[2024-11-06] MEDS: NOVOLOG FLEXPEN-MODERATE RESISTANCE 5 UNITS SC (18:20)
[2024-11-06] MEDS: REMERON 7.5 MG PO (21:16)
[2024-11-06] MEDS: BUSPAR 5 MG PO (21:17)
[2024-11-06] MEDS: APRESOLINE PO (21:17)
[2024-11-06] MEDS: LIPITOR 40 MG PO (21:17)
[2024-11-06 21:23] LABS: Glucose - Point of Care 213 mg/dl (70-99)
[2024-11-06] MEDS: LANTUS 0.14 UNITS SC (21:39)
[2024-11-07 03:41] VITALS: BP 119/48
[2024-11-07 05:58] VITALS: BMI 30.1
[2024-11-07 06:09] VITALS: BMI 30.1
[2024-11-07 06:43] LABS: Hematocrit 35.1 % (37.0-47.0); Hemoglobin 10.9 g/dL (12.0-16.0); Mean Corp Hgb Conc. 31.1 g/dL (33.0-37.0); Mean Corpuscular Hgb 29.6 pg (27.0-31.0); Mean Corpuscular Volume 95.4 fL (81.0-99.0); Mean Platelet Volume 10.5 fL (7.4-10.4); Platelet Count 86 10^3/uL (130-400); Red Blood Cell Count 3.68 10^6/uL (4.20-5.40); Red Cell Dist. Width 18.1 % (11.5-14.5); White Blood Cell Count 4.1 10^3/uL (4.8-10.8)
[2024-11-07 07:09] LABS: Calcium 8.5 mg/dl (8.4-10.2); Carbon Dioxide 22 mmol/L (22-30); Chloride 108 mmol/L (98-107); Estimated Creatinine Clearance 14 ml/min; Glucose 155 mg/dl (70-99); Potassium 3.7 mmol/L (3.5-5.1); Sodium 139 mmol/L (135-145)
[2024-11-07 07:15] VITALS: BP 117/49
[2024-11-07 07:20] LABS: Blood Urea Nitrogen 128 mg/dl (7-17)
[2024-11-07 07:57] LABS: Glucose - Point of Care 155 mg/dl (70-99)
[2024-11-07] MEDS: PROTONIX 40 MG PO (09:51)
[2024-11-07] MEDS: BUSPAR 5 MG PO ×2 (09:51→20:23)
[2024-11-07] MEDS: SODIUM BICARBONATE 650 MG PO ×2 (09:51→20:21)
[2024-11-07] MEDS: APRESOLINE PO ×2 (09:51→20:22)
[2024-11-07] MEDS: ELIQUIS 5 MG PO ×2 (09:51→20:21)
[2024-11-07] MEDS: FEOSOL 325 MG PO (09:52)
[2024-11-07] MEDS: IMDUR (EXTENDED RELEASE) 30 MG PO (09:52)
[2024-11-07] MEDS: VITAMIN B-12 1000 MCG PO (09:52)
[2024-11-07] MEDS: LASIX 80 MG IV ×2 (09:52→17:11)
[2024-11-07] MEDS: TOPROL XL PO (09:57)
[2024-11-07] MEDS: ANTIFUNGAL CLEAR 1 APPLIC TOPICAL ×2 (09:58→20:23)
[2024-11-07] MEDS: HYDROPHOR 1 APPLIC TOPICAL (09:58)
--- NOTE | 2024-11-07 10:16 | W.PN.CD ---
Today's Communication / Plan
-
continue lasix 80mg IV bid with metolazone 5mg daily
Impression / Plan
-
Impression/Plan: 74 y/o female with SSS s/p PPM, persistent atrial fibrillation, CAD s/p CABG and ICMO admitted with decompensated HFrEF with ANDI, found to have severe decubitus ulcers.
#HFrEF
-Acute on chronic. High risk situation with cardiorenal syndrome, and high risk for HD initiation
-weight starting to trend down with increased urine input increasing
-continue lasix 80mg IV bid with metolazone 5mg daily
-close monitoring of labs, tele, weight
#ICM
-Chronic.
-LVEF = EF 35-40% with mild AI, moderate TR (TTE, 10/03/2024).
-GDMT limited by renal function. GDMT with Metoprolol, Hydralazine/isosorbide mononitrate
#ANDI on CKD
-nephrology consulted
-trend Cr with diuresis
#Atrial fibrillation
-Persistent, currently in atrial fibrillation.
-Rate control with metoprolol.
-CHADS2-Vasc = 4 (CHF, Age x1, vascular disease, female gender).
-Therapeutic anticoagulation with apixaban.
#CAD
-Acute on chronic.
-hx CABG (TRAORE to LAD, SVG to OM, SVG to RPDA).
-Secondary prevention with high dose, high potency statin.
-Continue metoprolol.
#SSS/Pacemaker
-Chronic, stable.
Subjective/Interval History:
Edema gradually improving.
DATA:
TTE, 10/03/2024:
CONCLUSIONS
Normal LV size with moderately reduced systolic function. LVEF 35-40%.
Akinesis of the mid to distal septal wall and apex.
Right ventricle is moderately dilated with mildly reduced systolic function.
Mild mitral regurgitation
Mild to moderate aortic regurgitation.
Moderate tricuspid regurgitation. Estimated PASP 71 mmHg.
Compared to prior echocardiogram on 05/12/2023, there is no significant change.
Physical Exam
Vital Signs/Labs
Vital Signs
Temp Pulse Resp BP Pulse Ox
97.6 F 59 17 117/49 97
11/07/24 07:15 11/07/24 09:57 11/07/24 07:15 11/07/24 09:52 11/07/24 07:15
11/06/24 11/07/24 11/08/24
06:59 06:59 06:59
Actual Weight 88.723 kg 87.09 kg
11/07/24 06:05
11/07/24 06:05
Magnesium 2.4 mg/dl (1.6-2.3) H 11/05/24 07:15
11/02/24
13:05
Win-H-Gkbuunmqsfu Pept > [id number]
Physical Exam
Constitutional: No acute distress
EENT: Moist mucous membranes
Cardiovascular: Rhythm & rate is regular, Pedal edema present, JVD present and Systolic murmur present
Respiratory: Respiratory effort normal
Neuro/Psych: Alert
Data Reviewed
-
Date of Service: November 07, 2024
EKG: Other (Tele: A fib, Vpaced 60)
Labs: Labs Reviewed by me
--- NOTE | 2024-11-07 10:28 | W.PN.NEPH.PH ---
Today's Communication / Plan
-
Maintain IV diuretic
Follow BMP
No dialysis today
Assessment/Plan
-
Assessment
CKD4 (2.6)
ANDI
Metabolic acidosis
diabetes mellitus type 2 with proteinuria
Heart failure reduced ejection fractionEF 30-35%
Paroxysmal atrial fibrillation
Ileostomy
Failure to thrive
Plan
ANDI-cr improving to 4.2 but worsening azotemia on diiuretics
Maintain diuresis
UOP seem to improve and wt better
If worsening azotemia and any uremic sym likely need HD in next 24-48hrs
continue Juan
BP stable
met acidosis-cont po bicarb
No acute dialysis requirement today
But likely within the next 2 days
Patient at high risk with continued renal failure in the setting of volume overload, dialysis conversation, maintained IV diuretic, patient crying
-
-
Date of Service: November 07, 2024
CC / HPI / ROS
-
Chief Complaint:
Acute kidney injury
History of Present Illness:
Creatinine down to 4.2, BUN up at 128
Hemodynamically stable
improved UOP with foely
per nursing was lethargic this am better now
Review of Systems:
on RA, no resting sob or cp
no n/v
?diarrhea , stool out put 400cc
Weight down
Labs
-
Labs:
WBC 4.1 10^3/uL (4.8-10.8) L 11/07/24 06:05
RBC 3.68 10^6/uL (4.20-5.40) L 11/07/24 06:05
Hgb 10.9 g/dL (12.0-16.0) L 11/07/24 06:05
Hct 35.1 % (37.0-47.0) L 11/07/24 06:05
Plt Count 86 10^3/uL (130-400) L 11/07/24 06:05
Sodium 139 mmol/L (135-145) 11/07/24 06:05
Potassium 3.7 mmol/L (3.5-5.1) 11/07/24 06:05
Chloride 108 mmol/L (98-107) H 11/07/24 06:05
Carbon Dioxide 22 mmol/L (22-30) 11/07/24 06:05
BUN 128 mg/dl (7-17) H* 11/07/24 06:05
Creatinine 4.2 mg/dL (0.6-1.0) H* 11/07/24 06:05
eGFR 10.70 11/07/24 06:05
Glucose 155 mg/dl (70-99) H 11/07/24 06:05
Calcium 8.5 mg/dl (8.4-10.2) 11/07/24 06:05
Aqb-U-Omvlpiatyjl Pept > 17447 pg/ml 11/02/24 13:05
Albumin 3.3 g/dl (3.5-5.0) L 11/02/24 10:47
Physical Exam
-
Vital Signs:
Vital Signs
Temp Pulse Resp BP Pulse Ox
97.6 F 59 17 117/49 97
11/07/24 07:15 11/07/24 09:57 11/07/24 07:15 11/07/24 09:52 11/07/24 07:15
Cardiovascular:: Regular rate and rhythm
Respiratory:: Bilateral: Rales
Lung Excursion:: Normal
Abdomen:: Nontender and Soft
Extremity Edema:: +3: Bilateral:
Juan Catheter: Yes
--- NOTE | 2024-11-07 11:08 | W.PN.HOSP.TC ---
Today's Communication/Plan
-
CT scan of back
Assessment / Plan
Assessment / Plan
Acute on Chronic HFrEF:
Echo 10/03: Normal LV size with moderately reduced systolic function. LVEF 35-40%.
Akinesis of the mid to distal septal wall and apex.
Right ventricle is moderately dilated with mildly reduced systolic function.
Mild mitral regurgitation
Mild to moderate aortic regurgitation.
Moderate tricuspid regurgitation. Estimated PASP 71 mmHg.
Compared to prior echocardiogram on 05/12/2023, there is no significant change.
IV diuretics, Lasix 80 mg twice a day and Zaroxolyn. as per cardio to continue
s/p IV Diuril 500 mg on 11/03, 11/04, and 11/05
Requires intensive monitoring
BNP upon admission more than 27,000
Monitor strict I/O
Monitor daily weight
Monitor renal function and electrolytes
K 3.7
Continue guideline-directed medical therapy for heart failure (GDMT)--> B-Blockers, hydralazine and nitrates and at times on hold due to hypotension. Rest of GDMT limited by renal function and hypotension including Gianluca Inh/ARB/ARNI, MRA, SGLT-i.
Fluid restriction
Salt restriction
Heart failure education
Follow up clinical response
Cardiology consult appreciated
Updated family prior
PT OT recommends skilled rehab when medically ready.
Acute Kidney Injury on CKD IV, suspect cardiorenal syndrome
-Creatinine 4.4-->4.2 BUN 120-->128
-Consult Nephrology appreciated
-renal ultrasound--> no hydronephrosis and normal kidney appearance
-Monitor bladder scans
-Patient received IVFs in ED--> stopped IV fluids and on IV diuretics now.
-On IV diuresis now.
-If not improvement might need to consider HD
Metabolic Acidosis
-Likely related to renal failure
-Bicarb improving from 14 up to 21 today
Metabolic encephalopathy
-Suspect etiology uremia related
-Obtained CT of the head without contrast: no acute intracranial abnormalities
-Restarted buspirone and mirtazapine
Persistent A-Fib:
-Continue Eliquis for anticoagulation
-Continue metoprolol for rate control
ASCVD
-Continue Lipitor
-Continue Isosorbide Mononitrate
Essential Hypertension
-Continue hydralazine and metoprolol with hold parameters
Diabetes Mellitus, Type II - Uncontrolled
-HgbA1c 10.8 in Sep 2024
-Decreased Lantus and NovoLog doses in setting of ANDI upon admission--> BS persistently high so will increase gradually back up from 10 to 12 units Lantus and from 4 to 6 units NovoLog and more room to increase since home doses are 20 long acting
and 12 short acting insulin.
-Monitor sugars and continue coverage insulin Glu remain in 155-208 range
Anemia of Chronic Disease
-Hb 9.6 today
-Hgb stable
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
concerned for osteomyelitis
will order CT scan of area
Thrombocytopenia
-Plt 88 today
-Continue to monitor closely
Anxiety/Depression
-Continue buspirone and mirtazapine
GERD
-Continue Protonix
DVT proph: Eliquis
Code Status: DNR
Total time spent on today's encounter was 60 minutes. Complex visit
Anticipated Discharge: > 48 hours
Subjective/Interval History
-
Date of Service: November 07, 2024
Very weak
Objective Data
-
Labs:
Laboratory Results
11/07/24
06:05
WBC 4.1 L
Hgb 10.9 L
Hct 35.1 L
Plt Count 86 L
Sodium 139
Potassium 3.7
Chloride 108 H
Carbon Dioxide 22
BUN 128 H*
Creatinine 4.2 H*
Glucose 155 H
Calcium 8.5
Vital Signs:
Vital Signs
Temp Pulse Resp BP Pulse Ox
97.6 F 59 17 117/49 97
11/07/24 07:15 11/07/24 09:57 11/07/24 07:15 11/07/24 09:52 11/07/24 07:15
I&O
11/06/24 11/07/24 11/08/24
06:59 06:59 06:59
Intake Total 479 / 479 400 / 400
Output Total 2200 / 2200 1900 / 1900
Balance -1721 / -1721 -1500 / -1500
Review of Systems
-
History Source: Coordinated Provider
Constitutional: Denies Fever
Respiratory: Reports No Symptoms
Cardiac: Reports No Symptoms; Denies Chest Pain
Physical Exam
-
General: Well Developed, No Apparent Distress and Appears Chronically Ill (very weak)
HEENT: Normocephalic and Atraumatic
Respiratory: Rales (bibasilar on shallow respirations); Negative Wheezes
Cardiac: Regular Rhythm, S1/S2 and Murmur (3/6 jose)
GI: Soft
Genito-urinary: No Costovertebral Tender
Skin: Ulcers (left ischial stage 4 pressure injury)
Neuro: AO x 3
Hematologic / Lymphatic: No Lymphadenopathy
Psych: Calm
[2024-11-07 11:15] VITALS: BP 130/55
[2024-11-07] MEDS: NOVOLOG FLEXPEN-MODERATE RESISTANCE 1 UNITS SC ×2 (11:44→14:16)
[2024-11-07] MEDS: NOVOLOG FLEXPEN 6 UNITS SC ×3 (11:44→17:58)
[2024-11-07 13:08] LABS: Glucose - Point of Care 165 mg/dl (70-99)
[2024-11-07 15:08] VITALS: BP 144/50
--- NOTE | 2024-11-07 15:16 | CM ---
CM reviewed chart- ADC >48 hours
SNF recommended by therapy
Pt a ST rehab from [facility], and per family, does not want to return
Bedside meeting with pt- adamantly refusing SNF
Notes she plans to dc home
Update to son
he noted pt is W/C bound but independent with transfer, self propelling and all personal care
Will need be able to transfer independently if plan for dc to home
Discussion with PT/OT who will re-eval pt today
WOC following as pt with stage IV wound
Discharge Disposition- anticipate need for SNF but pt currently refusing
[2024-11-07 16:31] LABS: Glucose - Point of Care 458 mg/dl (70-99)
[2024-11-07] MEDS: APRESOLINE 25 MG PO (17:12)
[2024-11-07 17:22] LABS: Glucose 219 mg/dl (70-99)
[2024-11-07] MEDS: NOVOLOG FLEXPEN-MODERATE RESISTANCE 3 UNITS SC (17:59)
[2024-11-07 19:35] VITALS: BP 116/40
[2024-11-07] MEDS: REMERON 7.5 MG PO ×2 (20:20→20:21)
[2024-11-07] MEDS: LIPITOR 40 MG PO (20:20)
[2024-11-07 21:41] LABS: Glucose - Point of Care 227 mg/dl (70-99)
[2024-11-07] MEDS: LANTUS 0.14 UNITS SC (21:56)
[2024-11-07 23:55] VITALS: BP 131/53
[2024-11-08] VITALS (7 sets, daily range): BP systolic 108–132; BP diastolic 40–56; PULSE 60; O2SAT 96–97; BMI 29.6
[2024-11-08 07:00] LABS: Blood Urea Nitrogen 128 mg/dl (7-17); Calcium 8.9 mg/dl (8.4-10.2); Carbon Dioxide 23 mmol/L (22-30); Chloride 106 mmol/L (98-107); Estimated Creatinine Clearance 14 ml/min; Glucose 165 mg/dl (70-99); Potassium 3.5 mmol/L (3.5-5.1); Sodium 142 mmol/L (135-145); eGFR 11.01
[2024-11-08 08:02] LABS: Glucose - Point of Care 215 mg/dl (70-99)
[2024-11-08] MEDS: ANTIFUNGAL CLEAR 1 APPLIC TOPICAL ×2 (09:00→21:14)
[2024-11-08] MEDS: PROTONIX 40 MG PO (09:01)
[2024-11-08] MEDS: ELIQUIS 5 MG PO ×2 (09:01→21:13)
[2024-11-08] MEDS: SODIUM BICARBONATE 650 MG PO ×2 (09:01→21:14)
--- NOTE | 2024-11-08 09:01 | W.PN.HOSP.TC ---
Today's Communication/Plan
-
speech therapy consult
Assessment / Plan
Assessment / Plan
Acute on Chronic HFrEF:
Echo 10/03/2024: Normal LV size with moderately reduced systolic function. LVEF 35-40%.
Akinesis of the mid to distal septal wall and apex.
Right ventricle is moderately dilated with mildly reduced systolic function.
Mild mitral regurgitation
Mild to moderate aortic regurgitation.
Moderate tricuspid regurgitation. Estimated PASP 71 mmHg.
Compared to prior echocardiogram on 05/12/2023, there is no significant change.
IV diuretics, Lasix 80 mg twice a day and Zaroxolyn 5 mg. as per cardio to continue
s/p IV Diuril 500 mg on 11/03, 11/04, and 11/05
Requires intensive monitoring
BNP upon admission more than 27,000
Monitor strict I/O
Monitor daily weight
92.2-->88.7-->85.5
Monitor renal function and electrolytes
K 3.7-->3.5
Continue guideline-directed medical therapy for heart failure (GDMT)--> B-Blockers, hydralazine and nitrates and at times on hold due to hypotension. Rest of GDMT limited by renal function and hypotension including Gianluca Inh/ARB/ARNI, MRA, SGLT-i.
Fluid restriction
Salt restriction
Heart failure education
Follow up clinical response
Cardiology consult appreciated
Updated family prior
PT OT recommends skilled rehab when medically ready.
Acute Kidney Injury on CKD IV, suspect cardiorenal syndrome
-Creatinine 4.4-->4.2-->4.1 BUN 120-->128-->128
-Consult Nephrology appreciated
-renal ultrasound--> no hydronephrosis and normal kidney appearance
-Monitor bladder scans
-Patient received IVFs in ED--> stopped IV fluids and on IV diuretics now.
-On IV diuresis now.
-If not improvement might need to consider HD
Metabolic Acidosis
-Likely related to renal failure
-Bicarb improving from 14--> 21-->22-->23
Metabolic encephalopathy
-Suspect etiology uremia related
-Obtained CT of the head without contrast: no acute intracranial abnormalities
-Restarted buspirone and mirtazapine
Persistent A-Fib:
-Continue Eliquis for anticoagulation
-Continue metoprolol for rate control
ASCVD
-Continue Lipitor
-Continue Isosorbide Mononitrate
Essential Hypertension
-Continue hydralazine and metoprolol with hold parameters
Diabetes Mellitus, Type II - Uncontrolled
-HgbA1c 10.8 in Sep 2024
-Decreased Lantus and NovoLog doses in setting of ANDI upon admission--> BS persistently high so will increase gradually back up from 10 to 12 units Lantus and from 4 to 6 units NovoLog and more room to increase since home doses are 20 long acting
and 12 short acting insulin.
-Monitor sugars and continue coverage insulin Glu remain in 155-208 range
Anemia of Chronic Disease
-Hb 9.6-->10.9
-Hgb stable
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
concerned for osteomyelitis
CT scan of area: 1. No findings at CT highly suspicious for osteomyelitis. There is chronic sacrococcygeal subluxation. Unchanged diffuse abnormally increased osseous sclerosis.
2. Small volume of ascites. Anasarca.
3. Moderate parastomal hernia. Small volume of ascites within the hernia.
4. Juan catheter in position. Mild diffuse urinary bladder wall thickening
Thrombocytopenia
-Plt 86-87k
-Continue to monitor closely
Anxiety/Depression
-Continue buspirone and mirtazapine
GERD
-Continue Protonix
DVT proph: Eliquis
will request speech therapy input on diet
Code Status: DNR
call placed and discussed with son 11/08
Anticipated Discharge: > 48 hours
Subjective/Interval History
-
Date of Service: November 08, 2024
Very weak, answering basic questions
Objective Data
-
Labs:
Laboratory Results
11/08/24
05:36
Sodium 142
Potassium 3.5
Chloride 106
Carbon Dioxide 23
BUN 128 H*
Creatinine 4.1 H*
Glucose 165 H
Calcium 8.9
Vital Signs:
Vital Signs
Temp Pulse Resp BP Pulse Ox
97.9 F 61 17 108/40 95
11/08/24 07:43 11/08/24 07:43 11/08/24 07:43 11/08/24 07:43 11/08/24 07:43
I&O
11/07/24 11/08/24 11/09/24
06:59 06:59 06:59
Intake Total 400 / 400 1440 / 1440
Output Total 1900 / 1900 2740 / 2740
Balance -1500 / -1500 -1300 / -1300
Review of Systems
-
History Source: Coordinated Provider
Constitutional: Denies Fever
Respiratory: Reports No Symptoms
Cardiac: Reports No Symptoms; Denies Chest Pain
Physical Exam
-
General: Well Developed, No Apparent Distress and Appears Chronically Ill (very weak)
HEENT: Normocephalic and Atraumatic
Respiratory: Rales (bibasilar on shallow respirations); Negative Wheezes
Cardiac: Regular Rhythm, S1/S2 and Murmur (3/6 jose)
GI: Soft
Genito-urinary: No Costovertebral Tender
Skin: Ulcers (left ischial stage 4 pressure injury)
Neuro: AO x 3
Hematologic / Lymphatic: No Lymphadenopathy
Psych: Calm
[2024-11-08] MEDS: VITAMIN B-12 1000 MCG PO (09:02)
[2024-11-08] MEDS: IMDUR (EXTENDED RELEASE) 30 MG PO (09:02)
[2024-11-08] MEDS: TOPROL XL PO (09:03)
[2024-11-08] MEDS: HYDROPHOR 1 APPLIC TOPICAL (09:04)
[2024-11-08] MEDS: APRESOLINE PO (09:05)
[2024-11-08] MEDS: BUSPAR 5 MG PO ×2 (09:05→21:13)
[2024-11-08] MEDS: LASIX 80 MG IV ×2 (09:06→16:16)
[2024-11-08] MEDS: NOVOLOG FLEXPEN-MODERATE RESISTANCE 3 UNITS SC (10:00)
[2024-11-08] MEDS: NOVOLOG FLEXPEN 6 UNITS SC ×3 (10:01→16:14)
--- NOTE | 2024-11-08 11:32 | W.PN.CD ---
Today's Communication / Plan
-
Reduce metoprolol succinate to 25 mg daily and reduce holding parameters (SBP < 90 mmHg).
Dose isosorbide mononitrate/hydralazine as hemodynamics will permit (SBP < 100 mmHg).
Continue diuresis.
High risk for progression to ESRD/CARDIOLOGY TEACHER.
Wound care for decubitus ulcers.
Impression / Plan
-
Impression/Plan: 74 y/o female with CHB s/p PPM, persistent atrial fibrillation, CAD s/p CABG and ICMO admitted with decompensated HFrEF with ANDI, found to have severe decubitus ulcers.
#HFrEF
-Acute on chronic.
-High risk situation with cardiorenal syndrome, and high risk for HD initiation.
-Weight trending down with increased urine input (-1300 per chart).
-Continue furosemide 80mg IV bid.
-Close monitoring of labs, telemetry, weight.
-GDMT as hemodynamics will tolerate. No role for ACEI/ARB/ARNi/MRA/SGLT2i given renal function.
-Reduce metoprolol to 25 mg daily and reduce holding parameters.
-Isosorbide mononitrate and hydralazine as hemodynamics will permit.
#ICM
-Chronic.
-LVEF = EF 35-40% with mild AI, moderate TR (TTE, 10/03/2024).
-GDMT limited by renal function.
-GDMT modification as above.
#ANDI on CKD
-Nephrology consulted.
-Trend Cr with diuresis.
-High risk for progression to ESRD/CARDIOLOGY TEACHER. I did discuss this reality with the patient.
#Atrial fibrillation
-Persistent, currently in atrial fibrillation.
-Rate control with metoprolol.
-CHADS2-Vasc = 4 (CHF, Age x1, vascular disease, female gender).
-Therapeutic anticoagulation with apixaban.
#CAD
-Acute on chronic.
-Hx CABG (TRAORE to LAD, SVG to OM, SVG to RPDA).
-Secondary prevention with high dose, high potency statin.
-Continue metoprolol.
#Complete Heart Block/Pacemaker
-Chronic, stable.
Subjective/Interval History:
Chlorothiazide changed to metolazone (two doses, 11/05 and 11/06).
CT scan of back ordered out of concern for osteomyelitis - no evidence of osteomyelitis but there is ascites and anasarca.
Weight down 1.5 kg from yesterday, nearly 7 kg from baseline (85.5 <-- 92.2 kg).
Hydralazine given intermittently (BP parameters).
Metoprolol succinate held since 11/06/2024.
BUN up to 128. Creatinine down to 4.1. Normal Na/HCO3.
DATA:
TTE, 10/03/2024:
CONCLUSIONS
Normal LV size with moderately reduced systolic function. LVEF 35-40%.
Akinesis of the mid to distal septal wall and apex.
Right ventricle is moderately dilated with mildly reduced systolic function.
Mild mitral regurgitation
Mild to moderate aortic regurgitation.
Moderate tricuspid regurgitation. Estimated PASP 71 mmHg.
Compared to prior echocardiogram on 05/12/2023, there is no significant change.
CT Pelvis, 11/07/2024:
IMPRESSION:
1. No findings at CT highly suspicious for osteomyelitis. There is chronic sacrococcygeal subluxation. Unchanged diffuse abnormally increased osseous sclerosis.
2. Small volume of ascites. Anasarca.
3. Moderate parastomal hernia. Small volume of ascites within the hernia.
4. Juan catheter in position. Mild diffuse urinary bladder wall thickening.
Physical Exam
Vital Signs/Labs
Vital Signs
Temp Pulse Resp BP Pulse Ox
36.4 C 61 17 128/45 99
11/08/24 11:21 11/08/24 11:21 11/08/24 11:21 11/08/24 11:21 11/08/24 11:21
11/06/24 11/07/24 11/08/24
11:59 11:59 11:59
Actual Weight 88.723 kg 87.09 kg 85.502 kg
11/07/24 06:05
11/08/24 05:36
Magnesium 2.4 mg/dl (1.6-2.3) H 11/05/24 07:15
11/02/24
13:05
Txj-[id number] Pept > 30621
Physical Exam
Constitutional: No acute distress and Comfortable
EENT: Anicteric and Moist mucous membranes
Cardiovascular: Rhythm & rate is regular, Pedal edema present, S1S2 is normal and Murmur/rub/gallop absent
Respiratory: Respiratory effort normal, Lungs clear to auscul., Wheeze Absent, Crackles Absent and Rhonchi Absent
GI: Soft, Distention absent, Flat, Non tender and Normal bowel sounds
Neuro/Psych: AO x 3
Data Reviewed
-
Date of Service: November 08, 2024
Medical Decision Making: Reviewed Test Results, Independent Historian Assessment, Test Interpretation and Review of Case with other Provider
EKG: Tracing Personally Visualized and interpreted and Report Reviewed by me
Echo: Tracing Personally Visualized and interpreted and Report Reviewed by me
X-Ray/CT/US/MRI/NUC/PET: Image Personally Visualized and interpreted and Report Reviewed by me
Medical Tests (PFT, Pathology etc): Image Personally Visualized and interpreted and Report Reviewed by me
Labs: Labs Reviewed by me
Old Records: Reviewed
--- NOTE | 2024-11-08 13:07 | PTOTSP ---
ST Acute Care Evaluation
Pt currently presents with oral and pharyngeal swallowing parameters that are fairly WFL; no overt s/s of penetration or aspiration noted at bedside. Pt exhibits some reduced endurance with PO intake as well as some clinical signs of possible
esophageal dysfunction.
Recommendations:
- Continue with REGULAR SOLIDS, THIN LIQUIDS, and meds as tolerated.
- General aspiration and REFLUX precautions: Fully upright for ALL PO intake and for at least 60 minutes after PO intake; small bites/sips; alternate bites/sips; chew food thoroughly; only allow pt to eat/drink when she is fully awake/alert.
- PROFESSOR OF SPORT MANAGEMENT to f/u re: pt's diet tolerance.
--- NOTE | 2024-11-08 14:36 | W.PN.NEPH.PH ---
Today's Communication / Plan
-
Maintain Lasix 80 mg IV twice daily
Patient did not wish to pursue dialysis tomorrow
Creatinine and BUN essentially unchanged
Assessment/Plan
-
Assessment
CKD4 (2.6)
ANDI
Metabolic acidosis
diabetes mellitus type 2 with proteinuria
Heart failure reduced ejection fractionEF 30-35%
Paroxysmal atrial fibrillation
Ileostomy
Failure to thrive
Plan
ANDI-cr improving to 4.1 but worsening azotemia on diuretics
Maintain diuresis at 80mg IV BID,weights down 2kg
UOP seem to improve and wt better
I did state to patient today that I believe we should move forward with preparing for hemodialysis
She declined and said she wanted to wait another day to see if anything gets better
I think we are only prolonging the inevitable
continue Juan
BP stable
met acidosis stable -cont po bicarb
Patient at high risk with continued renal failure in the setting of volume overload, dialysis conversation, maintained IV diuretic, patient crying
-
-
Date of Service: November 08, 2024
CC / HPI / ROS
-
Chief Complaint:
Acute kidney injury
History of Present Illness:
Creatinine down to 4.1, BUN up at 128
Hemodynamically stable
improved UOP with foely
per nursing was lethargic this am better now
Review of Systems:
on RA, no resting sob or cp
no n/v
Weight down
Labs
-
Labs:
WBC 4.1 10^3/uL (4.8-10.8) L 11/07/24 06:05
RBC 3.68 10^6/uL (4.20-5.40) L 11/07/24 06:05
Hgb 10.9 g/dL (12.0-16.0) L 11/07/24 06:05
Hct 35.1 % (37.0-47.0) L 11/07/24 06:05
Plt Count 86 10^3/uL (130-400) L 11/07/24 06:05
Sodium 142 mmol/L (135-145) 11/08/24 05:36
Potassium 3.5 mmol/L (3.5-5.1) 11/08/24 05:36
Chloride 106 mmol/L (98-107) 11/08/24 05:36
Carbon Dioxide 23 mmol/L (22-30) 11/08/24 05:36
BUN 128 mg/dl (7-17) H* 11/08/24 05:36
Creatinine 4.1 mg/dL (0.6-1.0) H* 11/08/24 05:36
eGFR 11.01 11/08/24 05:36
Glucose 165 mg/dl (70-99) H 11/08/24 05:36
Calcium 8.9 mg/dl (8.4-10.2) 11/08/24 05:36
Tnk-Q-Ulfmiioxfnh Pept > 15315 pg/ml 11/02/24 13:05
Albumin 3.3 g/dl (3.5-5.0) L 11/02/24 10:47
Physical Exam
-
Vital Signs:
Vital Signs
Temp Pulse Resp BP Pulse Ox
97.6 F 61 17 128/45 99
11/08/24 11:21 11/08/24 11:21 11/08/24 11:21 11/08/24 11:21 11/08/24 11:21
Cardiovascular:: Regular rate and rhythm
Respiratory:: Bilateral: Rales
Lung Excursion:: Normal
Abdomen:: Nontender and Soft
Extremity Edema:: +3: Bilateral:
Juan Catheter: Yes
[2024-11-08] MEDS: TOPROL XL 25 MG PO (15:06)
[2024-11-08] MEDS: NOVOLOG FLEXPEN-MODERATE RESISTANCE 5 UNITS SC ×2 (15:08→16:14)
[2024-11-08 15:11] LABS: Glucose - Point of Care 256 mg/dl (70-99)
[2024-11-08] MEDS: APRESOLINE 25 MG PO ×2 (16:15→21:13)
[2024-11-08 16:26] LABS: Glucose - Point of Care 307 mg/dl (70-99)
[2024-11-08] MEDS: LIPITOR 40 MG PO (21:13)
[2024-11-08] MEDS: REMERON 7.5 MG PO (21:14)
[2024-11-08] MEDS: LANTUS 0.14 UNITS SC (21:18)
[2024-11-08 21:19] LABS: Glucose - Point of Care 216 mg/dl (70-99)
[2024-11-09 05:34] VITALS: BMI 29.2
[2024-11-09 06:58] LABS: % Basophils 0.4 % (0-2); % Eosinophils 2.2 % (0-6); % Immature Granulocytes 0.7 % (0-0.5); % Lymphocytes 14.9 % (20.5-51.1); % Monocytes 8.4 % (1.7-9.3); % Neutrophils 73.4 % (42.2-75.2); Absolute Eosinophils 0.1 10^3/uL (0-0.7); Absolute Lymphocytes 0.7 10^3/uL (1.2-3.4); Absolute Monocytes 0.4 10^3/uL (0.1-0.6); Absolute Neutrophils 3.3 10^3/uL (1.4-6.5); Hematocrit 38.3 % (37.0-47.0); Mean Corp Hgb Conc. 31.3 g/dL (33.0-37.0); Mean Corpuscular Hgb 29.6 pg (27.0-31.0); Mean Corpuscular Volume 94.6 fL (81.0-99.0); Mean Platelet Volume 10.3 fL (7.4-10.4); Nucleated Red Blood Cells % 0 %; Platelet Count 102 10^3/uL (130-400); Red Blood Cell Count 4.05 10^6/uL (4.20-5.40); Red Cell Dist. Width 17.7 % (11.5-14.5); White Blood Cell Count 4.5 10^3/uL (4.8-10.8)
[2024-11-09 07:14] LABS: Calcium 9.2 mg/dl (8.4-10.2); Carbon Dioxide 26 mmol/L (22-30); Chloride 104 mmol/L (98-107); Estimated Creatinine Clearance 15 ml/min; Glucose 93 mg/dl (70-99); Potassium 3.6 mmol/L (3.5-5.1); Sodium 143 mmol/L (135-145); eGFR 12.06
[2024-11-09 07:15] VITALS: BP 126/54
--- NOTE | 2024-11-09 07:39 | W.PN.CD ---
Today's Communication / Plan
-
Continue current diuretic trend.
Monitor BUN/Cr with diuresis - improving!
Wound care for sacral decubitus ulcers.
Aggressive PT/OT.
Impression / Plan
-
Impression/Plan: 74 y/o female with CHB s/p PPM, persistent atrial fibrillation, CAD s/p CABG and ICMO admitted with decompensated HFrEF with ANDI, found to have severe decubitus ulcers.
#HFrEF
-Acute on chronic - improving.
-High risk situation with cardiorenal syndrome, and high risk for HD initiation.
-Weight trending down.
-Continue furosemide 80mg IV bid.
-Close monitoring of labs, telemetry, weight.
-GDMT with metoprolol succinate, isosorbide mononitrate and hydralazine as hemodynamics will permit.
-No role for ACEI/ARB/ARNi/MRA/SGLT2i given renal function.
#ICM
-Chronic.
-LVEF = EF 35-40% with mild AI, moderate TR (TTE, 10/03/2024).
-GDMT as above.
#ANDI on CKD
-Nephrology consulted.
-High risk for progression to ESRD/BUSINESS PROCESS LEAD. Patient is aware.
-Creatinine seems to be improving with diuresis, suggesting that this was cardiorenal syndrome, not an underlying nephropathy.
#Atrial fibrillation
-Persistent, currently in atrial fibrillation.
-Rate control with metoprolol.
-CHADS2-Vasc = 4 (CHF, Age x1, vascular disease, female gender).
-Therapeutic anticoagulation with apixaban.
#CAD
-Acute on chronic.
-Hx CABG (TRAORE to LAD, SVG to OM, SVG to RPDA).
-Secondary prevention with high dose, high potency statin.
-Continue metoprolol.
#Complete Heart Block/Pacemaker
-Chronic, stable.
Subjective/Interval History:
Weight down an additional 1.0 kg (85.502 --> 84.55 kg).
Remains paced on telemetry.
Hydralazine/metoprolol restarted after holding parameters adjusted.
BP remains stable.
CBC shows she is hemoconcentrating (hopefully).
Creatinine down to 3.8 (<-- 4.1).
DATA:
TTE, 10/03/2024:
CONCLUSIONS
Normal LV size with moderately reduced systolic function. LVEF 35-40%.
Akinesis of the mid to distal septal wall and apex.
Right ventricle is moderately dilated with mildly reduced systolic function.
Mild mitral regurgitation
Mild to moderate aortic regurgitation.
Moderate tricuspid regurgitation. Estimated PASP 71 mmHg.
Compared to prior echocardiogram on 05/12/2023, there is no significant change.
CT Pelvis, 11/07/2024:
IMPRESSION:
1. No findings at CT highly suspicious for osteomyelitis. There is chronic sacrococcygeal subluxation. Unchanged diffuse abnormally increased osseous sclerosis.
2. Small volume of ascites. Anasarca.
3. Moderate parastomal hernia. Small volume of ascites within the hernia.
4. Juan catheter in position. Mild diffuse urinary bladder wall thickening.
Physical Exam
Vital Signs/Labs
Vital Signs
Temp Pulse Resp BP Pulse Ox
36.7 C 61 18 126/54 98
11/09/24 07:15 11/09/24 07:15 11/09/24 07:15 11/09/24 07:15 11/09/24 07:15
11/07/24 11/08/24 11/09/24
11:59 11:59 11:59
Actual Weight 87.09 kg 85.502 kg 84.55 kg
11/09/24 06:44
11/09/24 06:44
Magnesium 2.4 mg/dl (1.6-2.3) H 11/05/24 07:15
11/02/24
13:05
[id number]-Gkwhmnmupmh Pept > 04329
Physical Exam
Constitutional: No acute distress and Comfortable
EENT: Anicteric and Moist mucous membranes
Cardiovascular: Rhythm & rate is regular, Pedal edema present (legs significantly softer than at the time of admission.), S1S2 is normal and Murmur/rub/gallop absent
Respiratory: Respiratory effort normal, Lungs clear to auscul., Wheeze Absent, Crackles Absent and Rhonchi Absent
GI: Soft, Distention absent, Flat, Non tender and Normal bowel sounds
Neuro/Psych: AO x 3
Data Reviewed
-
Date of Service: November 09, 2024
Medical Decision Making: Reviewed Test Results, Independent Historian Assessment and Test Interpretation
EKG: Tracing Personally Visualized and interpreted and Report Reviewed by me
Echo: Tracing Personally Visualized and interpreted and Report Reviewed by me
X-Ray/CT/US/MRI/NUC/PET: Image Personally Visualized and interpreted and Report Reviewed by me
Medical Tests (PFT, Pathology etc): Image Personally Visualized and interpreted and Report Reviewed by me
Labs: Labs Reviewed by me
Old Records: Reviewed
[2024-11-09 07:47] LABS: Glucose - Point of Care 109 mg/dl (70-99)
[2024-11-09 08:50] LABS: Blood Urea Nitrogen 128 mg/dl (7-17)
--- NOTE | 2024-11-09 08:58 | W.PN.HOSP.TC ---
Today's Communication/Plan
-
await decision on dialysis
follow BMP
Assessment / Plan
Assessment / Plan
Acute on Chronic HFrEF:
Echo 10/03/2024: Normal LV size with moderately reduced systolic function. LVEF 35-40%.
Akinesis of the mid to distal septal wall and apex.
Right ventricle is moderately dilated with mildly reduced systolic function.
Mild mitral regurgitation
Mild to moderate aortic regurgitation.
Moderate tricuspid regurgitation. Estimated PASP 71 mmHg.
Compared to prior echocardiogram on 05/12/2023, there is no significant change.
IV diuretics, Lasix 80 mg twice a day and Zaroxolyn 5 mg. as per cardio/nephro to continue
s/p IV Diuril 500 mg on 11/03, 11/04, and 11/05
Requires intensive monitoring
BNP upon admission more than 27,000
Monitor strict I/O
Monitor daily weight
92.2-->88.7-->85.5-->84.5kg
Monitor renal function and electrolytes
K 3.7-->3.5-->3.6
Continue guideline-directed medical therapy for heart failure (GDMT)--> B-Blockers, hydralazine and nitrates and at times on hold due to hypotension. Rest of GDMT limited by renal function and hypotension including Gianluca Inh/ARB/ARNI, MRA, SGLT-i.
Fluid restriction
Salt restriction
Heart failure education
Follow up clinical response
Cardiology consult appreciated
Updated family prior
PT OT recommends skilled rehab when medically ready.
Acute Kidney Injury on CKD IV, suspect cardiorenal syndrome
-Creatinine 4.4-->4.2-->4.1-->3.8 BUN 120-->128-->128-->128
-Consult Nephrology appreciated
-renal ultrasound--> no hydronephrosis and normal kidney appearance
-Monitor bladder scans
-Patient received IVFs in ED--> stopped IV fluids and on IV diuretics now.
-On IV diuresis now.
-If not improvement might need to consider HD
Metabolic Acidosis
-Likely related to renal failure, better
-Bicarb improving from 14--> 21-->22-->23-->26
Metabolic encephalopathy
-Suspect etiology uremia related
-Obtained CT of the head without contrast: no acute intracranial abnormalities
-Restarted buspirone and mirtazapine
Persistent A-Fib:
-Continue Eliquis for anticoagulation
-Continue metoprolol for rate control
ASCVD
-Continue Lipitor
-Continue Isosorbide Mononitrate
Essential Hypertension
-Continue hydralazine and metoprolol with hold parameters
Diabetes Mellitus, Type II - Uncontrolled
-HgbA1c 10.8 in Sep 2024
-Decreased Lantus and NovoLog doses in setting of ANDI upon admission--> BS persistently high so will increase gradually back up from 10 to 12 units Lantus and from 4 to 6 units NovoLog and more room to increase since home doses are 20 long acting
and 12 short acting insulin.
-Monitor sugars and continue coverage insulin Glu remain in 109-307 range
Anemia of Chronic Disease
-Hb 9.6-->10.9
-Hgb stable
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
concerned for osteomyelitis
CT scan of area: 1. No findings at CT highly suspicious for osteomyelitis. There is chronic sacrococcygeal subluxation. Unchanged diffuse abnormally increased osseous sclerosis.
2. Small volume of ascites. Anasarca.
3. Moderate parastomal hernia. Small volume of ascites within the hernia.
4. Juan catheter in position. Mild diffuse urinary bladder wall thickening
Thrombocytopenia
-Plt 86-87k--BETTER-->102k
-Continue to monitor closely
Anxiety/Depression
-Continue buspirone and mirtazapine
GERD
-Continue Protonix
DVT proph: Eliquis
will request speech therapy input on diet
Code Status: DNR
call placed and discussed with son 11/09 ~20 minutes. Reviewed options of dialysis with son. He has a friend who was a former dialysis nurse and wishes to talk to her prior to deciding. He is his mother's only contact
total time 55 minutes
Anticipated Discharge: > 48 hours
Subjective/Interval History
-
Date of Service: November 09, 2024
Remains lethargic, but answering basic questions
Objective Data
-
Labs:
Laboratory Results
11/09/24
06:44
WBC 4.5 L
Hgb 12.0
Hct 38.3
Plt Count 102 L
Sodium 143
Potassium 3.6
Chloride 104
Carbon Dioxide 26
BUN 128 H*
Creatinine 3.8 H
Glucose 93
Calcium 9.2
Vital Signs:
Vital Signs
Temp Pulse Resp BP Pulse Ox
98.1 F 61 18 126/54 98
11/09/24 07:15 11/09/24 07:15 11/09/24 07:15 11/09/24 07:15 11/09/24 07:15
I&O
11/08/24 11/09/24 11/10/24
06:59 06:59 06:59
Intake Total 1440 / 1440 1200 / 1200
Output Total 2740 / 2740 2099 / 2099
Balance -1300 / -1300 -900 / -900
Review of Systems
-
History Source: Coordinated Provider (reviewed with DAO Gifford)
Constitutional: Denies Fever
Respiratory: Reports No Symptoms
Cardiac: Reports No Symptoms; Denies Chest Pain
Physical Exam
-
General: Well Developed, No Apparent Distress and Appears Chronically Ill (very weak)
HEENT: Normocephalic and Atraumatic
Respiratory: Negative Wheezes or Rales (none appreciated today)
Cardiac: Regular Rhythm, S1/S2 and Murmur (3/6 jose)
GI: Soft
Genito-urinary: No Costovertebral Tender
Skin: Ulcers (left ischial stage 4 pressure injury)
Neuro: AO x 3
Hematologic / Lymphatic: No Lymphadenopathy
Psych: Calm
[2024-11-09] MEDS: NOVOLOG FLEXPEN 6 UNITS SC ×3 (09:35→17:51)
[2024-11-09] MEDS: LASIX 80 MG IV ×2 (09:36→17:51)
[2024-11-09] MEDS: NOVOLOG FLEXPEN-MODERATE RESISTANCE SC (09:36)
[2024-11-09] MEDS: TOPROL XL 25 MG PO (09:39)
[2024-11-09] MEDS: PROTONIX 40 MG PO (09:39)
[2024-11-09] MEDS: SODIUM BICARBONATE 650 MG PO ×2 (09:40→21:42)
[2024-11-09] MEDS: IMDUR (EXTENDED RELEASE) 30 MG PO (09:40)
[2024-11-09] MEDS: APRESOLINE 25 MG PO ×3 (09:40→21:42)
[2024-11-09] MEDS: VITAMIN B-12 1000 MCG PO (09:40)
[2024-11-09] MEDS: ELIQUIS 5 MG PO ×2 (09:40→21:41)
[2024-11-09] MEDS: ANTIFUNGAL CLEAR 1 APPLIC TOPICAL ×2 (09:40→21:43)
[2024-11-09] MEDS: BUSPAR 5 MG PO ×2 (09:40→21:41)
[2024-11-09] MEDS: HYDROPHOR 1 APPLIC TOPICAL (09:42)
--- NOTE | 2024-11-09 12:54 | W.PN.NEPH.PH ---
Today's Communication / Plan
-
continue diuresis
Assessment/Plan
-
Assessment
CKD4 (2.6)
ANDI
Metabolic acidosis
diabetes mellitus type 2 with proteinuria
Heart failure reduced ejection fractionEF 30-35%
Paroxysmal atrial fibrillation
Ileostomy
Failure to thrive
Plan
Continue diuresis
Follow BMP
I reiterated to the patient that she will likely require dialysis at some point and she did understand this
She is still trying to wrap her head around that situation
Continue Juan catheter
High risk situation
-
-
Date of Service: November 09, 2024
CC / HPI / ROS
-
Chief Complaint:
Acute kidney injury
History of Present Illness:
Creatinine down to 3.8, BUN up at 128 stable
Hemodynamically stable
improved UOP with foely
remains on high dose lasix IV
high risk situation
Review of Systems:
on RA, no resting sob or cp
no n/v
Weight down
Labs
-
Labs:
WBC 4.5 10^3/uL (4.8-10.8) L 11/09/24 06:44
RBC 4.05 10^6/uL (4.20-5.40) L 11/09/24 06:44
Hgb 12.0 g/dL (12.0-16.0) 11/09/24 06:44
Hct 38.3 % (37.0-47.0) 11/09/24 06:44
Plt Count 102 10^3/uL (130-400) L 11/09/24 06:44
Sodium 143 mmol/L (135-145) 11/09/24 06:44
Potassium 3.6 mmol/L (3.5-5.1) 11/09/24 06:44
Chloride 104 mmol/L (98-107) 11/09/24 06:44
Carbon Dioxide 26 mmol/L (22-30) 11/09/24 06:44
BUN 128 mg/dl (7-17) H* 11/09/24 06:44
Creatinine 3.8 mg/dL (0.6-1.0) H 11/09/24 06:44
eGFR 12.06 11/09/24 06:44
Glucose 93 mg/dl (70-99) 11/09/24 06:44
Calcium 9.2 mg/dl (8.4-10.2) 11/09/24 06:44
Ooh-E-Qookjjydzpj Pept > 53410 pg/ml 11/02/24 13:05
Albumin 3.3 g/dl (3.5-5.0) L 11/02/24 10:47
Physical Exam
-
Vital Signs:
Vital Signs
Temp Pulse Resp BP Pulse Ox
98.1 F 61 18 126/54 98
11/09/24 07:15 11/09/24 07:15 11/09/24 07:15 11/09/24 07:15 11/09/24 07:15
Cardiovascular:: Regular rate and rhythm
Respiratory:: Bilateral: CTA
Lung Excursion:: Normal
Abdomen:: Nontender and Soft
Bowel Sounds:: Normal
Extremity Edema:: +3: Bilateral:
[2024-11-09 13:49] LABS: Glucose - Point of Care 152 mg/dl (70-99)
[2024-11-09] MEDS: NOVOLOG FLEXPEN-MODERATE RESISTANCE 1 UNITS SC (14:11)
[2024-11-09 15:14] VITALS: BP 126/48
[2024-11-09 17:12] LABS: Glucose - Point of Care 207 mg/dl (70-99)
[2024-11-09] MEDS: NOVOLOG FLEXPEN-MODERATE RESISTANCE 3 UNITS SC (17:52)
[2024-11-09 21:38] LABS: Glucose - Point of Care 243 mg/dl (70-99)
[2024-11-09] MEDS: REMERON 7.5 MG PO (21:41)
[2024-11-09] MEDS: LIPITOR 40 MG PO (21:41)
[2024-11-09] MEDS: LANTUS 0.14 UNITS SC (21:42)
[2024-11-09 21:45] VITALS: BMI 29.2
[2024-11-09 23:16] VITALS: BP 115/56
[2024-11-10 06:00] VITALS: BMI 28.7
--- NOTE | 2024-11-10 07:11 | W.PN.CD ---
Today's Communication / Plan
-
Continue diuresis.
Monitor renal function.
Impression / Plan
-
Impression/Plan: 74 y/o female with CHB s/p PPM, persistent atrial fibrillation, CAD s/p CABG and ICMO admitted with decompensated HFrEF with ANDI, found to have severe decubitus ulcers.
#HFrEF
-Acute on chronic - improving.
-High risk situation with cardiorenal syndrome, and high risk for HD initiation.
-Weight trending down.
-Continue furosemide 80mg IV bid.
-Close monitoring of labs, telemetry, weight.
-GDMT with metoprolol succinate, isosorbide mononitrate and hydralazine as hemodynamics will permit.
-No role for ACEI/ARB/ARNi/MRA/SGLT2i given renal function.
#ICM
-Chronic.
-LVEF = EF 35-40% with mild AI, moderate TR (TTE, 10/03/2024).
-GDMT as above.
#ANDI on CKD
-Nephrology consulted.
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 Patient is aware.
-Creatinine seems to be improving with diuresis, suggesting that this was cardiorenal syndrome, not an underlying nephropathy.
#Atrial fibrillation
-Persistent, currently in atrial fibrillation.
-Rate control with metoprolol.
-CHADS2-Vasc = 4 (CHF, Age x1, vascular disease, female gender).
-Therapeutic anticoagulation with apixaban.
#CAD
-Acute on chronic.
-Hx CABG (TRAORE to LAD, SVG to OM, SVG to RPDA).
-Secondary prevention with high dose, high potency statin.
-Continue metoprolol.
#Complete Heart Block/Pacemaker
-Chronic, stable.
Subjective/Interval History:
Weight continues to fall.
Labs pending this morning.
DATA:
TTE, 10/03/2024:
CONCLUSIONS
Normal LV size with moderately reduced systolic function. LVEF 35-40%.
Akinesis of the mid to distal septal wall and apex.
Right ventricle is moderately dilated with mildly reduced systolic function.
Mild mitral regurgitation
Mild to moderate aortic regurgitation.
Moderate tricuspid regurgitation. Estimated PASP 71 mmHg.
Compared to prior echocardiogram on 05/12/2023, there is no significant change.
CT Pelvis, 11/07/2024:
IMPRESSION:
1. No findings at CT highly suspicious for osteomyelitis. There is chronic sacrococcygeal subluxation. Unchanged diffuse abnormally increased osseous sclerosis.
2. Small volume of ascites. Anasarca.
3. Moderate parastomal hernia. Small volume of ascites within the hernia.
4. Juan catheter in position. Mild diffuse urinary bladder wall thickening.
Physical Exam
Vital Signs/Labs
Vital Signs
Temp Pulse Resp BP Pulse Ox
36.6 C 61 16 115/56 98
11/09/24 23:16 11/09/24 23:16 11/09/24 23:16 11/09/24 23:16 11/09/24 23:16
11/08/24 11/09/24 11/10/24
11:59 11:59 11:59
Actual Weight 85.502 kg 84.55 kg 83.053 kg
Magnesium 2.4 mg/dl (1.6-2.3) H 11/05/24 07:15
11/02/24
13:05
Tbn-A-Ngxcewitziq Pept > 10978
Physical Exam
Constitutional: No acute distress and Comfortable
EENT: Anicteric and Moist mucous membranes
Cardiovascular: Rhythm & rate is regular, Pedal edema present (Left > Right (baseline).), S1S2 is normal and Murmur/rub/gallop absent
Respiratory: Respiratory effort normal, Lungs clear to auscul., Wheeze Absent, Crackles Absent and Rhonchi Absent
GI: Soft, Distention absent, Flat, Non tender and Normal bowel sounds
Neuro/Psych: AO x 3
Data Reviewed
-
Date of Service: November 10, 2024
Medical Decision Making: Reviewed Test Results, Independent Historian Assessment and Test Interpretation
EKG: Tracing Personally Visualized and interpreted and Report Reviewed by me
Echo: Tracing Personally Visualized and interpreted and Report Reviewed by me
X-Ray/CT/US/MRI/NUC/PET: Image Personally Visualized and interpreted and Report Reviewed by me
Medical Tests (PFT, Pathology etc): Image Personally Visualized and interpreted and Report Reviewed by me
Labs: Labs Reviewed by me
Old Records: Reviewed
[2024-11-10 08:16] LABS: Glucose - Point of Care 167 mg/dl (70-99)
[2024-11-10 08:24] VITALS: BP 127/58
[2024-11-10 08:50] LABS: % Basophils 0.4 % (0-2); % Eosinophils 1.8 % (0-6); % Immature Granulocytes 0.4 % (0-0.5); % Lymphocytes 8.3 % (20.5-51.1); % Monocytes 9.3 % (1.7-9.3); % Neutrophils 79.8 % (42.2-75.2); Absolute Eosinophils 0.1 10^3/uL (0-0.7); Absolute Lymphocytes 0.5 10^3/uL (1.2-3.4); Absolute Monocytes 0.5 10^3/uL (0.1-0.6); Absolute Neutrophils 4.5 10^3/uL (1.4-6.5); Hematocrit 34.2 % (37.0-47.0); Hemoglobin 10.4 g/dL (12.0-16.0); Mean Corp Hgb Conc. 30.4 g/dL (33.0-37.0); Mean Corpuscular Hgb 29.1 pg (27.0-31.0); Mean Corpuscular Volume 95.8 fL (81.0-99.0); Mean Platelet Volume 10.9 fL (7.4-10.4); Nucleated Red Blood Cells % 0 %; Platelet Count 103 10^3/uL (130-400); Red Blood Cell Count 3.57 10^6/uL (4.20-5.40); Red Cell Dist. Width 17.2 % (11.5-14.5); White Blood Cell Count 5.7 10^3/uL (4.8-10.8)
[2024-11-10] MEDS: VITAMIN B-12 1000 MCG PO (08:52)
[2024-11-10] MEDS: TOPROL XL 25 MG PO (08:52)
[2024-11-10] MEDS: SODIUM BICARBONATE 650 MG PO ×2 (08:52→21:09)
[2024-11-10] MEDS: APRESOLINE 25 MG PO ×2 (08:52→15:06)
[2024-11-10] MEDS: PROTONIX 40 MG PO (08:53)
[2024-11-10] MEDS: ELIQUIS 5 MG PO ×2 (08:53→21:09)
[2024-11-10] MEDS: LASIX 80 MG IV ×2 (08:55→15:06)
[2024-11-10] MEDS: IMDUR (EXTENDED RELEASE) 30 MG PO (09:17)
[2024-11-10] MEDS: BUSPAR 5 MG PO ×2 (09:20→21:09)
[2024-11-10 09:26] LABS: Calcium 8.8 mg/dl (8.4-10.2); Carbon Dioxide 28 mmol/L (22-30); Chloride 102 mmol/L (98-107); Estimated Creatinine Clearance 14 ml/min; Glucose 154 mg/dl (70-99); Potassium 3.2 mmol/L (3.5-5.1); Sodium 141 mmol/L (135-145); eGFR 11.34
[2024-11-10 09:46] LABS: Blood Urea Nitrogen 124 mg/dl (7-17)
[2024-11-10] MEDS: NOVOLOG FLEXPEN 6 UNITS SC ×3 (11:20→18:25)
[2024-11-10] MEDS: NOVOLOG FLEXPEN-MODERATE RESISTANCE 1 UNITS SC ×2 (11:20→18:30)
[2024-11-10] MEDS: NOVOLOG FLEXPEN-MODERATE RESISTANCE SC ×3 (11:22→18:27)
[2024-11-10] MEDS: NOVOLOG FLEXPEN SC ×2 (11:22→12:03)
[2024-11-10] MEDS: ANTIFUNGAL CLEAR 1 APPLIC TOPICAL ×2 (11:23→21:11)
[2024-11-10] MEDS: HYDROPHOR 1 APPLIC TOPICAL (11:23)
--- NOTE | 2024-11-10 13:19 | CM ---
CM following re: discharge planning.
Reviewed pt's chart, met with pt.
PT and OT evaluations noted - SNF level of care recommended. Pt is aware, expressed her agreement. A list of SNFs provided. Pt preferred: [facility] SNF, [facility], [facility], [facility], [facility]F. A referral to above SNFs
made.
D/C plan: preferred SNF.
CM will follow to assist pt with discharge to a preferred SNF.
--- NOTE | 2024-11-10 13:20 | W.PN.NEPH.PH ---
Today's Communication / Plan
-
Follow BMP
Assessment/Plan
-
Assessment
CKD4 (2.6)
ANDI
Metabolic acidosis
diabetes mellitus type 2 with proteinuria
Heart failure reduced ejection fractionEF 30-35%
Paroxysmal atrial fibrillation
Ileostomy
Failure to thrive
Plan
Continue diuresis
Follow BMP
I reiterated to the patient that she will likely require dialysis at some point and she did understand this
Fortunately there is no emergent need for dialysis at this time
She is still trying to wrap her head around that situation
Continue Jalloh catheter
High risk situation
-
-
Date of Service: November 10, 2024
CC / HPI / ROS
-
Chief Complaint:
Acute kidney injury
History of Present Illness:
Creatinine up to 4.0
Potassium low 3.2
BUN 124
Hemodynamically stable
improved UOP with jalloh
remains on high dose lasix IV
high risk situation
Review of Systems:
on RA, no resting sob or cp
no n/v
Weight down
Labs
-
Labs:
WBC 5.7 10^3/uL (4.8-10.8) 11/10/24 08:09
RBC 3.57 10^6/uL (4.20-5.40) L 11/10/24 08:09
Hgb 10.4 g/dL (12.0-16.0) L 11/10/24 08:09
Hct 34.2 % (37.0-47.0) L 11/10/24 08:09
Plt Count 103 10^3/uL (130-400) L 11/10/24 08:09
Sodium 141 mmol/L (135-145) 11/10/24 08:09
Potassium 3.2 mmol/L (3.5-5.1) L 11/10/24 08:09
Chloride 102 mmol/L (98-107) 11/10/24 08:09
Carbon Dioxide 28 mmol/L (22-30) 11/10/24 08:09
BUN 124 mg/dl (7-17) H* 11/10/24 08:09
Creatinine 4.0 mg/dL (0.6-1.0) H 11/10/24 08:09
eGFR 11.34 11/10/24 08:09
Glucose 154 mg/dl (70-99) H 11/10/24 08:09
Calcium 8.8 mg/dl (8.4-10.2) 11/10/24 08:09
Yvd-D-Ovblxalrtmn Pept > 79770 pg/ml 11/02/24 13:05
Albumin 3.3 g/dl (3.5-5.0) L 11/02/24 10:47
Physical Exam
-
Vital Signs:
Vital Signs
Temp Pulse Resp BP Pulse Ox
97.5 F 61 16 127/58 98
11/10/24 08:24 11/10/24 08:24 11/10/24 08:24 11/10/24 08:24 11/10/24 08:24
Cardiovascular:: Regular rate and rhythm
Respiratory:: Bilateral: Coarse
Lung Excursion:: Normal
Abdomen:: Nontender and Soft
Bowel Sounds:: Normal
Extremity Edema:: +2: Bilateral:
--- NOTE | 2024-11-10 13:25 | W.PN.HOSP.TC ---
Today's Communication/Plan
-
cardio note appreciated, plan to continue Tx
Assessment / Plan
Assessment / Plan
Acute on Chronic HFrEF:
Echo 10/03/2024: Normal LV size with moderately reduced systolic function. LVEF 35-40%.
Akinesis of the mid to distal septal wall and apex.
Right ventricle is moderately dilated with mildly reduced systolic function.
Mild mitral regurgitation
Mild to moderate aortic regurgitation.
Moderate tricuspid regurgitation. Estimated PASP 71 mmHg.
Compared to prior echocardiogram on 05/12/2023, there is no significant change.
IV diuretics, Lasix 80 mg twice a day and Zaroxolyn 5 mg. as per cardio/nephro to continue
s/p IV Diuril 500 mg on 11/03, 11/04, and 11/05
Requires intensive monitoring
BNP upon admission more than 27,000
Monitor strict I/O
Monitor daily weight
92.2-->88.7-->85.5-->84.5-->83.1kg
Monitor renal function and electrolytes
K 3.7-->3.5-->3.6-->3.2
Continue guideline-directed medical therapy for heart failure (GDMT)--> B-Blockers, hydralazine and nitrates and at times on hold due to hypotension. Rest of GDMT limited by renal function and hypotension including Gianluca Inh/ARB/ARNI, MRA, SGLT-i.
Fluid restriction
Salt restriction
Heart failure education
Follow up clinical response
Cardiology consult appreciated
Updated family prior
PT OT recommends skilled rehab when medically ready.
Acute Kidney Injury on CKD IV, suspect cardiorenal syndrome
-Creatinine 4.4-->4.2-->4.1-->3.8-->4.0 BUN 120-->128-->128-->128-->124
-Consult Nephrology appreciated
-renal ultrasound--> no hydronephrosis and normal kidney appearance
-Monitor bladder scans
-Patient received IVFs in ED--> stopped IV fluids and on IV diuretics now.
-On IV diuresis now.
-If not improvement might need to consider HD
Metabolic Acidosis
-Likely related to renal failure, better
-Bicarb improving from 14--> 21-->22-->23-->26-->28
Metabolic encephalopathy
-Suspect etiology uremia related
-Obtained CT of the head without contrast: no acute intracranial abnormalities
-Restarted buspirone and mirtazapine
Persistent A-Fib:
-Continue Eliquis for anticoagulation
-Continue metoprolol for rate control
ASCVD
-Continue Lipitor
-Continue Isosorbide Mononitrate
Essential Hypertension
-Continue hydralazine and metoprolol with hold parameters
Diabetes Mellitus, Type II - Uncontrolled
-HgbA1c 10.8 in Sep 2024
-Decreased Lantus and NovoLog doses in setting of ANDI upon admission--> BS persistently high so will increase gradually back up from 10 to 12 units Lantus and from 4 to 6 units NovoLog and more room to increase since home doses are 20 long acting
and 12 short acting insulin.
-Monitor sugars and continue coverage insulin Glu remain in 109-243 range
Anemia of Chronic Disease
-Hb 9.6-->10.9
-Hgb stable
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
concerned for osteomyelitis
CT scan of area: 1. No findings at CT highly suspicious for osteomyelitis. There is chronic sacrococcygeal subluxation. Unchanged diffuse abnormally increased osseous sclerosis.
2. Small volume of ascites. Anasarca.
3. Moderate parastomal hernia. Small volume of ascites within the hernia.
4. Juan catheter in position. Mild diffuse urinary bladder wall thickening
Thrombocytopenia
-Plt 86-87k--BETTER-->102-->103k
-Continue to monitor closely
Anxiety/Depression
-Continue buspirone and mirtazapine
GERD
-Continue Protonix
DVT proph: Eliquis
speech therapy input appreciated: 'Continue with REGULAR SOLIDS, THIN LIQUIDS, and meds as tolerated.
- General aspiration and REFLUX precautions: Fully upright for ALL PO intake and for at least 60 minutes after PO intake; small bites/sips; alternate bites/sips; chew food thoroughly; only allow pt to eat/drink when she is fully awake/alert.
- GLASS BREAKER to f/u re: pt's diet tolerance.'
Code Status: DNR
call placed and discussed with son 11/09 ~20 minutes. Reviewed options of dialysis with son. He has a friend who was a former dialysis nurse and wishes to talk to her prior to deciding. He is his mother's only contact
Anticipated Discharge: > 48 hours
Subjective/Interval History
-
Date of Service: November 10, 2024
Voice is stronger today, more alert
Objective Data
-
Labs:
Laboratory Results
11/10/24
08:09
WBC 5.7
Hgb 10.4 L
Hct 34.2 L
Plt Count 103 L
Sodium 141
Potassium 3.2 L
Chloride 102
Carbon Dioxide 28
BUN 124 H*
Creatinine 4.0 H
Glucose 154 H
Calcium 8.8
Vital Signs:
Vital Signs
Temp Pulse Resp BP Pulse Ox
97.5 F 61 16 127/58 98
11/10/24 08:24 11/10/24 08:24 11/10/24 08:24 11/10/24 08:24 11/10/24 08:24
I&O
11/09/24 11/10/24 11/11/24
06:59 06:59 06:59
Intake Total 1200 / 1200 1620 / 1620
Output Total 2099 / 2099 2405 / 240
Balance -900 / -900 -785 / -785
Review of Systems
-
History Source: Coordinated Provider (reviewed with RN)
Constitutional: Denies Fever
Respiratory: Reports No Symptoms
Cardiac: Reports No Symptoms; Denies Chest Pain
Physical Exam
-
General: Well Developed, No Apparent Distress and Appears Chronically Ill (very weak)
HEENT: Normocephalic and Atraumatic
Respiratory: Negative Wheezes or Rales (none appreciated today)
Cardiac: Regular Rhythm, S1/S2 and Murmur (3/6 jose)
GI: Soft
Genito-urinary: No Costovertebral Tender
Skin: Ulcers (left ischial stage 4 pressure injury)
Neuro: AO x 3
Hematologic / Lymphatic: No Lymphadenopathy
Psych: Calm
[2024-11-10] MEDS: KCL 40 MEQ PO (13:58)
[2024-11-10 14:49] LABS: Glucose - Point of Care 241 mg/dl (70-99)
[2024-11-10] MEDS: NOVOLOG FLEXPEN-MODERATE RESISTANCE 3 UNITS SC (15:05)
[2024-11-10 16:07] VITALS: BP 135/63
[2024-11-10 18:21] LABS: Glucose - Point of Care 191 mg/dl (70-99)
[2024-11-10] MEDS: NOVOLOG FLEXPEN-MODERATE RESISTANCE 5 UNITS SC (18:26)
[2024-11-10] MEDS: LIPITOR 40 MG PO (21:09)
[2024-11-10 21:12] VITALS: BMI 28.7
[2024-11-10 21:43] LABS: Glucose - Point of Care 236 mg/dl (70-99)
[2024-11-10] MEDS: REMERON 7.5 MG PO (22:05)
[2024-11-10] MEDS: LANTUS 0.14 UNITS SC (22:05)
[2024-11-10] MEDS: APRESOLINE PO (22:08)
[2024-11-10 23:20] VITALS: BP 117/47
[2024-11-11 06:00] VITALS: BMI 28.3
--- NOTE | 2024-11-11 07:22 | W.PN.CD ---
Today's Communication / Plan
-
Furosemide to 80 mg PO today.
Monitor renal function today.
She is not at her typical dry weight.
If we have difficulty clarifying her volume status, we will refer for RHC.
Impression / Plan
-
Impression/Plan: 74 y/o female with CHB s/p PPM, persistent atrial fibrillation, CAD s/p CABG and ICMO admitted with decompensated HFrEF with ANDI, found to have severe decubitus ulcers.
#HFrEF
-Acute on chronic - improving.
-High risk situation with cardiorenal syndrome, and high risk for HD initiation.
-Weight trending down - Creatinine ticked up suggesting that we are approaching/reaching euvolemia.
-Change furosemide to 80 mg PO daily as the patient appears fairly euvolemic - though her weight is not at its typical bina.
-Close monitoring of labs, telemetry, weight.
-GDMT with metoprolol succinate, isosorbide mononitrate and hydralazine as hemodynamics will permit.
-No role for ACEI/ARB/ARNi/MRA/SGLT2i given renal function.
#ICM
-Chronic.
-LVEF = EF 35-40% with mild AI, moderate TR (TTE, 10/03/2024).
-GDMT as above.
#ANDI on CKD
-Nephrology consulted.
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 Patient is aware.
-Creatinine seems to be improving with diuresis, suggesting that this was cardiorenal syndrome, not an underlying nephropathy.
#Atrial fibrillation
-Persistent, currently in atrial fibrillation.
-Rate control with metoprolol.
-CHADS2-Vasc = 4 (CHF, Age x1, vascular disease, female gender).
-Therapeutic anticoagulation with apixaban.
#CAD
-Acute on chronic.
-Hx CABG (TRAORE to LAD, SVG to OM, SVG to RPDA).
-Secondary prevention with high dose, high potency statin.
-Continue metoprolol.
#Complete Heart Block/Pacemaker
-Chronic, stable.
Subjective/Interval History:
Weight is down.
Creatinine ticked up.
DATA:
TTE, 10/03/2024:
CONCLUSIONS
Normal LV size with moderately reduced systolic function. LVEF 35-40%.
Akinesis of the mid to distal septal wall and apex.
Right ventricle is moderately dilated with mildly reduced systolic function.
Mild mitral regurgitation
Mild to moderate aortic regurgitation.
Moderate tricuspid regurgitation. Estimated PASP 71 mmHg.
Compared to prior echocardiogram on 05/12/2023, there is no significant change.
CT Pelvis, 11/07/2024:
IMPRESSION:
1. No findings at CT highly suspicious for osteomyelitis. There is chronic sacrococcygeal subluxation. Unchanged diffuse abnormally increased osseous sclerosis.
2. Small volume of ascites. Anasarca.
3. Moderate parastomal hernia. Small volume of ascites within the hernia.
4. Juan catheter in position. Mild diffuse urinary bladder wall thickening.
Physical Exam
Vital Signs/Labs
Vital Signs
Temp Pulse Resp BP Pulse Ox
36.4 C 61 16 117/47 96
11/10/24 23:20 11/10/24 23:20 11/10/24 23:20 11/10/24 23:20 11/10/24 23:20
11/09/24 11/10/24 11/11/24
11:59 11:59 11:59
Actual Weight 84.55 kg 83.053 kg 82.01 kg
11/10/24 08:09
Magnesium 2.4 mg/dl (1.6-2.3) H 11/05/24 07:15
11/02/24
13:05
Zyw-P-Ngldiryzknc Pept > 87313
Physical Exam
Constitutional: No acute distress and Comfortable
EENT: Anicteric and Moist mucous membranes
Cardiovascular: Rhythm & rate is regular, Pedal edema is absent, JVD pressure is normal, S1S2 is normal and Murmur/rub/gallop absent
Respiratory: Respiratory effort normal, Lungs clear to auscul., Wheeze Absent, Crackles Absent and Rhonchi Absent
GI: Soft, Distention absent, Flat, Non tender and Normal bowel sounds
Neuro/Psych: AO x 3
Data Reviewed
-
Date of Service: November 11, 2024
Medical Decision Making: Reviewed Test Results, Independent Historian Assessment and Test Interpretation
EKG: Tracing Personally Visualized and interpreted and Report Reviewed by me
Echo: Tracing Personally Visualized and interpreted and Report Reviewed by me
X-Ray/CT/US/MRI/NUC/PET: Image Personally Visualized and interpreted and Report Reviewed by me
Medical Tests (PFT, Pathology etc): Image Personally Visualized and interpreted and Report Reviewed by me
Labs: Labs Reviewed by me
Old Records: Reviewed
[2024-11-11 07:52] VITALS: BP 123/49
[2024-11-11 08:07] LABS: Glucose - Point of Care 234 mg/dl (70-99)
[2024-11-11 08:15] VITALS: BMI 28.3
[2024-11-11] MEDS: TOPROL XL 25 MG PO (08:51)
[2024-11-11] MEDS: LASIX 80 MG PO (08:51)
[2024-11-11] MEDS: ELIQUIS 5 MG PO ×2 (08:51→21:31)
[2024-11-11] MEDS: IMDUR (EXTENDED RELEASE) 30 MG PO (08:51)
[2024-11-11] MEDS: HYDROPHOR 1 APPLIC TOPICAL (08:52)
[2024-11-11] MEDS: BUSPAR 5 MG PO ×2 (08:52→21:31)
[2024-11-11] MEDS: PROTONIX 40 MG PO (08:52)
[2024-11-11] MEDS: VITAMIN B-12 1000 MCG PO (08:52)
[2024-11-11] MEDS: SODIUM BICARBONATE 650 MG PO ×2 (08:52→21:31)
[2024-11-11] MEDS: APRESOLINE 25 MG PO ×3 (08:52→21:34)
[2024-11-11] MEDS: ANTIFUNGAL CLEAR 1 APPLIC TOPICAL ×2 (08:52→21:31)
[2024-11-11 09:08] LABS: Calcium 8.7 mg/dl (8.4-10.2); Carbon Dioxide 30 mmol/L (22-30); Chloride 102 mmol/L (98-107); Estimated Creatinine Clearance 16 ml/min; Glucose 211 mg/dl (70-99); Magnesium 2.2 mg/dl (1.6-2.3); Potassium 3.5 mmol/L (3.5-5.1); Sodium 140 mmol/L (135-145); eGFR 12.87
[2024-11-11 09:23] LABS: Blood Urea Nitrogen 126 mg/dl (7-17)
--- NOTE | 2024-11-11 09:53 | WOUNDNOTE ---
[facility] RN note: Patient's appears less swollen. Center sacral ulcer pink, healing stage 3, purple section that was just to the R of sacral ulcer on 09/03/24 is now pink/open deep dermal stage 2. R coccyx with small linear dermal pink opening suspect r/t
medical adhesive skin injury. L ischial ulcer tunnel less deep with less macerated periwound skin. Moderate serous drainage. CT pelvis 'No findings at CT highly suspicious for osteomyelitis'. Skin on heels intact. Sacral, L ischial, L dorsal foot
and RLE dressings changed. R lateral ankle ulcer newly healed. Patient turned to R semi side lying position with help from DAO Richardson. Heels off bed with pillows. Patient has bariatric air chair cushion and regular size air chair cushion. Colostomy
appliance was changed a day or 2 ago as per patient. Gave patient newer version of her [employer] 1 piece colostomy pouch to try if she wants. She has her own ostomy pouches. Nursing to assist with routine pouch changes. Will follow as needed.
--- NOTE | 2024-11-11 10:47 | W.PN.NEPH.PH ---
Today's Communication / Plan
-
Continue diuresis follow BMP
Replete potassium
Assessment/Plan
-
Assessment
CKD4 (2.6)
ANDI
Metabolic acidosis
diabetes mellitus type 2 with proteinuria
Heart failure reduced ejection fractionEF 30-35%
Paroxysmal atrial fibrillation
Ileostomy
Failure to thrive
Plan
Continue diuresis,weights down
Follow BMP
Creatinine down to 3.6 but BUN up to 128
I reiterated to the patient that she will likely require dialysis at some point and she did understand this
The patient continues to be evasive about committing to dialysis
Fortunately there is no emergent need for dialysis at this time
She is still trying to wrap her head around that situation
Continue Jalloh catheter
High risk situation
-
-
Date of Service: November 11, 2024
CC / HPI / ROS
-
Chief Complaint:
Acute kidney injury
History of Present Illness:
Creatinine up to 3.6
Potassium low 3.4
BUN 126
Hemodynamically stable
improved UOP with jalloh
remains on high dose lasix IV
high risk situation
Review of Systems:
on RA, no resting sob or cp
no n/v
Weight down
Labs
-
Labs:
WBC 5.7 10^3/uL (4.8-10.8) 11/10/24 08:09
RBC 3.57 10^6/uL (4.20-5.40) L 11/10/24 08:09
Hgb 10.4 g/dL (12.0-16.0) L 11/10/24 08:09
Hct 34.2 % (37.0-47.0) L 11/10/24 08:09
Plt Count 103 10^3/uL (130-400) L 11/10/24 08:09
Sodium 140 mmol/L (135-145) 11/11/24 08:12
Potassium 3.5 mmol/L (3.5-5.1) 11/11/24 08:12
Chloride 102 mmol/L (98-107) 11/11/24 08:12
Carbon Dioxide 30 mmol/L (22-30) 11/11/24 08:12
BUN 126 mg/dl (7-17) H* 11/11/24 08:12
Creatinine 3.6 mg/dL (0.6-1.0) H 11/11/24 08:12
eGFR 12.87 11/11/24 08:12
Glucose 211 mg/dl (70-99) H 11/11/24 08:12
Calcium 8.7 mg/dl (8.4-10.2) 11/11/24 08:12
Ohg-X-Ggxxoqevjyx Pept > 22613 pg/ml 11/02/24 13:05
Albumin 3.3 g/dl (3.5-5.0) L 11/02/24 10:47
Physical Exam
-
Vital Signs:
Vital Signs
Temp Pulse Resp BP Pulse Ox
97.7 F 64 16 123/49 96
11/11/24 07:52 11/11/24 07:52 11/11/24 07:52 11/11/24 07:52 11/11/24 07:52
Cardiovascular:: Regular rate and rhythm
Respiratory:: Bilateral: Coarse
Lung Excursion:: Normal
Abdomen:: Nontender and Soft
Bowel Sounds:: Normal
Extremity Edema:: +2: Bilateral:
[2024-11-11] MEDS: NOVOLOG FLEXPEN 6 UNITS SC ×3 (11:17→18:31)
[2024-11-11] MEDS: NOVOLOG FLEXPEN-MODERATE RESISTANCE 3 UNITS SC ×2 (11:18→18:32)
[2024-11-11 11:57] LABS: Glucose - Point of Care 269 mg/dl (70-99)
[2024-11-11] MEDS: KCL 40 MEQ PO (13:34)
--- NOTE | 2024-11-11 13:51 | CM ---
Addendum entered by Mabel Hall 11/11/24 16:08:
Referral response from [facility] still pending
Original Note:
Anticipated Discharge > 48 hours
Referrals were sent , Richie Rosario, Shayla Fernandes, [facility], [facility] via [facility] yesterday
CM spoke with son; he reported that he did not want patient to return to [facility]
Referrals accepted by Shayla Fernandes and Richie Rosario
Plan: Discharge to SNF when stable pending bed availability; CM will continue to follow
[2024-11-11] MEDS: NOVOLOG FLEXPEN-MODERATE RESISTANCE 5 UNITS SC (14:07)
[2024-11-11 15:53] VITALS: BP 127/45
--- NOTE | 2024-11-11 15:54 | W.PN.HOSP.TC ---
Today's Communication/Plan
-
continue current Rx. Pt was at [facility] prior to admit, family wants alternative facility. Await decision on facility with dc to facility once okay with cardio/nephro
Assessment / Plan
Assessment / Plan
Acute on Chronic HFrEF:
Echo 10/03/2024: Normal LV size with moderately reduced systolic function. LVEF 35-40%.
Akinesis of the mid to distal septal wall and apex.
Right ventricle is moderately dilated with mildly reduced systolic function.
Mild mitral regurgitation
Mild to moderate aortic regurgitation.
Moderate tricuspid regurgitation. Estimated PASP 71 mmHg.
Compared to prior echocardiogram on 05/12/2023, there is no significant change.
IV diuretics, Lasix 80 mg IV twice a day now changed to Lasix 80 mg po daily and Zaroxolyn 5 mg discontinued
s/p IV Diuril 500 mg on 11/03, 11/04, and 11/05
Requires intensive monitoring
BNP upon admission more than 27,000
Monitor strict I/O
Monitor daily weight
92.2-->88.7-->85.5-->84.5-->83.1-->82kg
Monitor renal function and electrolytes
K 3.7-->3.5-->3.6-->3.2-->3.5
Continue guideline-directed medical therapy for heart failure (GDMT)--> B-Blockers, hydralazine and nitrates and at times on hold due to hypotension. Rest of GDMT limited by renal function and hypotension including Gianluca Inh/ARB/ARNI, MRA, SGLT-i.
Fluid restriction
Salt restriction
Heart failure education
Follow up clinical response
Cardiology consult appreciated
Updated family prior
PT OT recommends skilled rehab when medically ready.
Acute Kidney Injury on CKD IV, suspect cardiorenal syndrome
-Creatinine 4.4-->4.2-->4.1-->3.8-->4.0-->3.6 BUN 120-->128-->128-->128-->124-->126
-Consult Nephrology appreciated
-renal ultrasound--> no hydronephrosis and normal kidney appearance
-Monitor bladder scans
-Patient received IVFs in ED--> stopped IV fluids and on IV diuretics now.
-On IV diuresis now.
-If not improvement might need to consider HD, pt remains hesitant on HD
Metabolic Acidosis
-Likely related to renal failure, better
-Bicarb improving from 14--> 21-->22-->23-->26-->28
Metabolic encephalopathy
-Suspect etiology uremia related
-Obtained CT of the head without contrast: no acute intracranial abnormalities
-Restarted buspirone and mirtazapine
Persistent A-Fib:
-Continue Eliquis for anticoagulation
-Continue metoprolol for rate control
ASCVD
-Continue Lipitor
-Continue Isosorbide Mononitrate
Essential Hypertension
-Continue hydralazine and metoprolol with hold parameters
Diabetes Mellitus, Type II - Uncontrolled
-HgbA1c 10.8 in Sep 2024
-Decreased Lantus and NovoLog doses in setting of ANDI upon admission--> BS persistently high so will increase gradually back up from 10 to 12 units Lantus and from 4 to 6 units NovoLog and more room to increase since home doses are 20 long acting
and 12 short acting insulin.
-Monitor sugars and continue coverage insulin Glu remain in 109-243 range
Anemia of Chronic Disease
-Hb 9.6-->10.9-->10.4
-Hgb stable
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
concerned for osteomyelitis
CT scan of area: 1. No findings at CT highly suspicious for osteomyelitis. There is chronic sacrococcygeal subluxation. Unchanged diffuse abnormally increased osseous sclerosis.
2. Small volume of ascites. Anasarca.
3. Moderate parastomal hernia. Small volume of ascites within the hernia.
4. Juan catheter in position. Mild diffuse urinary bladder wall thickening
Thrombocytopenia
-Plt 86-87k--BETTER-->102-->103k
-Continue to monitor closely
Anxiety/Depression
-Continue buspirone and mirtazapine
GERD
-Continue Protonix
DVT proph: Eliquis
speech therapy input appreciated: 'Continue with REGULAR SOLIDS, THIN LIQUIDS, and meds as tolerated.
- General aspiration and REFLUX precautions: Fully upright for ALL PO intake and for at least 60 minutes after PO intake; small bites/sips; alternate bites/sips; chew food thoroughly; only allow pt to eat/drink when she is fully awake/alert.
- GLASS MOULD CLEANER to f/u re: pt's diet tolerance.'
Code Status: DNR
call placed and discussed with son 11/09 ~20 minutes. Reviewed options of dialysis with son. He has a friend who was a former dialysis nurse and wishes to talk to her prior to deciding. He is his mother's only contact
Anticipated Discharge: > 48 hours
Subjective/Interval History
-
Date of Service: November 11, 2024
Somewhat brighter today
Objective Data
-
Labs:
Laboratory Results
11/11/24
08:12
Sodium 140
Potassium 3.5
Chloride 102
Carbon Dioxide 30
BUN 126 H*
Creatinine 3.6 H
Glucose 211 H
Calcium 8.7
Vital Signs:
Vital Signs
Temp Pulse Resp BP Pulse Ox
97.7 F 64 16 123/49 96
11/11/24 07:52 12/13/24 07:52 11/11/24 07:52 11/11/24 07:52 11/11/24 07:52
I&O
11/10/24 11/11/24 11/12/24
06:59 06:59 06:59
Intake Total 1620 / 1620 1440 / 1440
Output Total 2405 / 2405 1999
Balance -785 / -785 -560 / -560
Review of Systems
-
History Source: Coordinated Provider (reviewed with RN)
Constitutional: Denies Fever
Respiratory: Reports No Symptoms
Cardiac: Reports No Symptoms; Denies Chest Pain
Neuro: Reports Weakness
Physical Exam
-
General: Well Developed, No Apparent Distress and Appears Chronically Ill (very weak)
HEENT: Normocephalic and Atraumatic
Respiratory: Negative Wheezes or Rales (none appreciated today)
Cardiac: Regular Rhythm, S1/S2 and Murmur (3/6 jose)
GI: Soft
Genito-urinary: No Costovertebral Tender
Skin: Ulcers (left ischial stage 4 pressure injury)
Neuro: AO x 3
Hematologic / Lymphatic: No Lymphadenopathy
Psych: Calm
[2024-11-11 16:39] LABS: Glucose - Point of Care 233 mg/dl (70-99)
[2024-11-11 21:21] LABS: Glucose - Point of Care 219 mg/dl (70-99)
[2024-11-11] MEDS: LANTUS 0.14 UNITS SC (21:33)
[2024-11-11] MEDS: LIPITOR 40 MG PO (21:33)
[2024-11-11 23:10] VITALS: BP 121/51
[2024-11-12 04:01] VITALS: BMI 28.0
[2024-11-12 06:00] VITALS: BMI 28.0
[2024-11-12 06:34] LABS: Calcium 8.8 mg/dl (8.4-10.2); Carbon Dioxide 30 mmol/L (22-30); Chloride 102 mmol/L (98-107); Estimated Creatinine Clearance 15 ml/min; Glucose 66 mg/dl (70-99); Potassium 3.7 mmol/L (3.5-5.1); Sodium 141 mmol/L (135-145); eGFR 12.06
[2024-11-12 06:45] LABS: Blood Urea Nitrogen 125 mg/dl (7-17)
[2024-11-12 07:00] VITALS: BP 117/52
[2024-11-12 08:20] LABS: Glucose - Point of Care 91 mg/dl (70-99)
[2024-11-12] MEDS: NOVOLOG FLEXPEN-MODERATE RESISTANCE SC ×2 (08:26→12:28)
[2024-11-12] MEDS: LASIX 80 MG PO (08:26)
[2024-11-12] MEDS: PROTONIX 40 MG PO (08:26)
[2024-11-12] MEDS: SODIUM BICARBONATE 650 MG PO ×2 (08:27→22:19)
[2024-11-12] MEDS: TOPROL XL 25 MG PO (08:27)
[2024-11-12] MEDS: IMDUR (EXTENDED RELEASE) 30 MG PO (08:27)
[2024-11-12] MEDS: ELIQUIS 5 MG PO ×2 (08:27→22:19)
[2024-11-12] MEDS: APRESOLINE 25 MG PO ×3 (08:27→22:21)
[2024-11-12] MEDS: ANTIFUNGAL CLEAR 1 APPLIC TOPICAL ×2 (08:28→22:28)
[2024-11-12] MEDS: BUSPAR 5 MG PO ×2 (08:28→22:20)
[2024-11-12] MEDS: VITAMIN B-12 1000 MCG PO (08:28)
[2024-11-12] MEDS: HYDROPHOR 1 APPLIC TOPICAL (08:30)
[2024-11-12] MEDS: NOVOLOG FLEXPEN 6 UNITS SC ×3 (09:31→18:02)
--- NOTE | 2024-11-12 11:30 | W.PN.NEPH.PH ---
Today's Communication / Plan
-
Observe
Follow-up BMP
Assessment/Plan
-
Assessment
CKD4 (2.6)
ANDI
Metabolic acidosis
diabetes mellitus type 2 with proteinuria
Heart failure reduced ejection fractionEF 30-35%
Paroxysmal atrial fibrillation
Ileostomy
Failure to thrive
Plan
Continue diuresis,weights down
Follow BMP
Creatinine at 3.8 but BUN up to 125
Weights unchanged cardiology changed her back to p.o. Lasix 80mg
Cardiology may do right heart cath on Thursday to determine course of diuresis but I still believe we will need to progress on to HD
I reiterated to the patient that she will likely require dialysis at some point and she did understand this
The patient continues to be evasive about committing to dialysis
Fortunately there is no emergent need for dialysis at this time
She is still trying to wrap her head around that situation
Continue Jalloh catheter
High risk situation
-
-
Date of Service: November 12, 2024
CC / HPI / ROS
-
Chief Complaint:
Acute kidney injury
History of Present Illness:
Creatinine up to 3.7
Potassium low 3.4
BUN 128
Hemodynamically stable
improved UOP with jalloh
remains on high dose lasix IV
high risk situation
Review of Systems:
on RA, no resting sob or cp
no n/v
Weight unchanged
Nonoliguric
Labs
-
Labs:
WBC 5.7 10^3/uL (4.8-10.8) 11/10/24 08:09
RBC 3.57 10^6/uL (4.20-5.40) L 11/10/24 08:09
Hgb 10.4 g/dL (12.0-16.0) L 11/10/24 08:09
Hct 34.2 % (37.0-47.0) L 11/10/24 08:09
Plt Count 103 10^3/uL (130-400) L 11/10/24 08:09
Sodium 141 mmol/L (135-145) 11/12/24 05:41
Potassium 3.7 mmol/L (3.5-5.1) 11/12/24 05:41
Chloride 102 mmol/L (98-107) 11/12/24 05:41
Carbon Dioxide 30 mmol/L (22-30) 11/12/24 05:41
BUN 125 mg/dl (7-17) H* 11/12/24 05:41
Creatinine 3.8 mg/dL (0.6-1.0) H 11/12/24 05:41
eGFR 12.06 11/12/24 05:41
Glucose 66 mg/dl (70-99) L 11/12/24 05:41
Calcium 8.8 mg/dl (8.4-10.2) 11/12/24 05:41
Dmx-E-Reasdtkxegn Pept > 48717 pg/ml 11/02/24 13:05
Albumin 3.3 g/dl (3.5-5.0) L 11/02/24 10:47
Physical Exam
-
Vital Signs:
Vital Signs
Temp Pulse Resp BP Pulse Ox
98.1 F 60 18 117/52 98
11/12/24 07:00 11/12/24 08:27 11/12/24 07:00 11/12/24 08:27 11/12/24 07:00
Cardiovascular:: Regular rate and rhythm
Respiratory:: Bilateral: Coarse
Lung Excursion:: Normal
Abdomen:: Nontender and Soft
Bowel Sounds:: Normal
Extremity Edema:: +2: Bilateral:
--- NOTE | 2024-11-12 11:42 | W.PN.HOSP.TC ---
Addendum entered and electronically signed by Reagan De León MD 11/12/24 16:50:
call placed to son 4:30 PM. Mother told him she does not want dialysis. He will confirm with her that is her final decision and if so will need to start making dispo plans. She would like to return to her own apartment and just be treated
conservatively he was told
Original Note:
Today's Communication/Plan
-
await decision on dialysis
Assessment / Plan
Assessment / Plan
Acute on Chronic HFrEF:
Echo 10/03/2024: Normal LV size with moderately reduced systolic function. LVEF 35-40%.
Akinesis of the mid to distal septal wall and apex.
Right ventricle is moderately dilated with mildly reduced systolic function.
Mild mitral regurgitation
Mild to moderate aortic regurgitation.
Moderate tricuspid regurgitation. Estimated PASP 71 mmHg.
Compared to prior echocardiogram on 05/12/2023, there is no significant change.
IV diuretics, Lasix 80 mg IV twice a day now changed to Lasix 80 mg po daily and Zaroxolyn 5 mg discontinued
s/p IV Diuril 500 mg on 11/03, 11/04, and 11/05
Requires intensive monitoring
BNP upon admission more than 27,000
Monitor strict I/O
Monitor daily weight
92.2-->88.7-->85.5-->84.5-->83.1-->82kg
Monitor renal function and electrolytes
K 3.7-->3.5-->3.6-->3.2-->3.5-->3.7
Continue guideline-directed medical therapy for heart failure (GDMT)--> B-Blockers, hydralazine and nitrates and at times on hold due to hypotension. Rest of GDMT limited by renal function and hypotension including Gianluca Inh/ARB/ARNI, MRA, SGLT-i.
Fluid restriction
Salt restriction
Heart failure education
Follow up clinical response
Cardiology consult appreciated
Updated family prior
PT OT recommends skilled rehab when medically ready.
Acute Kidney Injury on CKD IV, suspect cardiorenal syndrome
-Creatinine 4.4-->4.2-->4.1-->3.8-->4.0-->3.6-->3.8 BUN 120-->128-->128-->128-->124-->126-->125
-Consult Nephrology appreciated
-renal ultrasound--> no hydronephrosis and normal kidney appearance
-Monitor bladder scans
-Patient received IVFs in ED--> stopped IV fluids and on IV diuretics now.
-On IV diuresis now.
-If not improvement might need to consider HD, pt remains hesitant on HD
Metabolic Acidosis
-Likely related to renal failure, better
-Bicarb improving from 14--> 21-->22-->23-->26-->28-->30
Metabolic encephalopathy
-Suspect etiology uremia related
-Obtained CT of the head without contrast: no acute intracranial abnormalities
-Restarted buspirone and mirtazapine
Persistent A-Fib:
-Continue Eliquis for anticoagulation
-Continue metoprolol for rate control
ASCVD
-Continue Lipitor
-Continue Isosorbide Mononitrate
Essential Hypertension
-Continue hydralazine and metoprolol with hold parameters
Diabetes Mellitus, Type II - Uncontrolled
-HgbA1c 10.8 in Sep 2024
-Decreased Lantus and NovoLog doses in setting of ANDI upon admission--> BS persistently high so will increase gradually back up from 10 to 12 units Lantus and from 4 to 6 units NovoLog and more room to increase since home doses are 20 long acting
and 12 short acting insulin.
-Monitor sugars and continue coverage insulin Glu remain in 109-243 range
Anemia of Chronic Disease
-Hb 9.6-->10.9-->10.4
-Hgb stable
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
concerned for osteomyelitis
CT scan of area: 1. No findings at CT highly suspicious for osteomyelitis. There is chronic sacrococcygeal subluxation. Unchanged diffuse abnormally increased osseous sclerosis.
2. Small volume of ascites. Anasarca.
3. Moderate parastomal hernia. Small volume of ascites within the hernia.
4. Juan catheter in position. Mild diffuse urinary bladder wall thickening
Thrombocytopenia
-Plt 86-87k--BETTER-->102-->103k
-Continue to monitor closely
Anxiety/Depression
-Continue buspirone and mirtazapine
GERD
-Continue Protonix
DVT proph: Eliquis
discussed with Dr. Centeno
speech therapy input appreciated: 'Continue with REGULAR SOLIDS, THIN LIQUIDS, and meds as tolerated.
- General aspiration and REFLUX precautions: Fully upright for ALL PO intake and for at least 60 minutes after PO intake; small bites/sips; alternate bites/sips; chew food thoroughly; only allow pt to eat/drink when she is fully awake/alert.
- MACHINE PULLER AND LASTER to f/u re: pt's diet tolerance.'
Code Status: DNR
call placed and discussed with son 11/09 ~20 minutes. Reviewed options of dialysis with son. He has a friend who was a former dialysis nurse and wishes to talk to her prior to deciding. He is his mother's only contact
Anticipated Discharge: > 48 hours
Subjective/Interval History
-
Date of Service: November 12, 2024
Appears comfortable
Objective Data
-
Labs:
Laboratory Results
11/12/24
05:41
Sodium 141
Potassium 3.7
Chloride 102
Carbon Dioxide 30
BUN 125 H*
Creatinine 3.8 H
Glucose 66 L
Calcium 8.8
Vital Signs:
Vital Signs
Temp Pulse Resp BP Pulse Ox
98.1 F 60 18 117/52 98
11/12/24 07:00 11/12/24 08:27 11/12/24 07:00 11/12/24 08:27 11/12/24 07:00
I&O
11/11/24 11/12/24 11/13/24
06:59 06:59 06:59
Intake Total 1440 / 1440 1320 / 1320
Output Total 1999 / 1999 1775 / 1775 150 / 150
Balance -560 / -560 -455 / -455 -150 / -150
Review of Systems
-
History Source: Coordinated Provider (reviewed with RN)
Constitutional: Denies Fever
Respiratory: Reports No Symptoms
Cardiac: Reports No Symptoms; Denies Chest Pain
Neuro: Reports Weakness
Physical Exam
-
General: Well Developed, No Apparent Distress and Appears Chronically Ill (very weak)
HEENT: Normocephalic and Atraumatic
Respiratory: Negative Wheezes or Rales (none appreciated today)
Cardiac: Regular Rhythm, S1/S2 and Murmur (3/6 jose)
GI: Soft
Genito-urinary: No Costovertebral Tender
Skin: Ulcers (left ischial stage 4 pressure injury)
Neuro: AO x 3
Hematologic / Lymphatic: No Lymphadenopathy
Psych: Calm
[2024-11-12 12:10] LABS: Glucose - Point of Care 119 mg/dl (70-99)
--- NOTE | 2024-11-12 12:43 | W.PN.CD ---
Addendum entered and electronically signed by Roberth Cason MD 11/12/24 16:47:
I saw and examined the patient.
The DOOR FRAME BUILDER's note was reviewed and I agree with the note.
Comment: She is feeling better denies dyspnea. She has a irreg irreg rate and rhythm, lungs clear to ausculation. Le Edema present despite tubigrips b/l. Discussed her Case with Dr De León and Dr Solano. If it would be helpful we could consider a
RHC on Thursday. If the plan were to move straight to HD, would forgo. Dr De León planning to revisist with nephrology and pt and pt's son. For now will continue current diuretic dose. Wt stable on current po dose, but I doubt she is euvolemic.
That said, HD may be needed to acheive euvolemia.
Will revisit the best next step tomorrow after more consideration.
Original Note:
Today's Communication / Plan
-
Continue furosemide at current dosing.
HD is being considered.
Impression / Plan
-
Impression/Plan: 74 y/o female with CHB s/p PPM, persistent atrial fibrillation, CAD s/p CABG and ICMO admitted with decompensated HFrEF with ANDI, found to have severe decubitus ulcers.
#HFrEF
-Acute on chronic - improving. She was 75kg one month ago.
-High risk situation with cardiorenal syndrome, and high risk for HD initiation.
-Weight trending down - Creatinine ticked up suggesting that we are approaching/reaching euvolemia.
-Change furosemide to 80 mg PO daily as the patient appears fairly euvolemic - though her weight is not at its typical bina.
-Close monitoring of labs, telemetry, weight.
-GDMT with metoprolol succinate, isosorbide mononitrate and hydralazine as hemodynamics will permit.
-No role for ACEI/ARB/ARNi/MRA/SGLT2i given renal function.
#ICM
-Chronic.
-LVEF = EF 35-40% with mild AI, moderate TR (TTE, 10/03/2024).
-GDMT as above.
#ANDI on CKD
-Nephrology consulted.
-High risk for progression to ESRD/SPORTS ATTORNEY. Patient is aware.
-Creatinine slowly improving with diuresis, suggesting that this was cardiorenal syndrome, not an underlying nephropathy.
#Atrial fibrillation
-Persistent, currently in atrial fibrillation.
-Rate control with metoprolol.
-CHADS2-Vasc = 4 (CHF, Age x1, vascular disease, female gender).
-Therapeutic anticoagulation with apixaban.
#CAD
-Chronic.
-Hx CABG (TRAORE to LAD, SVG to OM, SVG to RPDA).
-Secondary prevention with high dose, high potency statin.
-Continue metoprolol.
#Complete Heart Block/Pacemaker
-Chronic, stable.
Subjective/Interval History:
Weight is down. She denies shortness of breath.
DATA:
TTE, 10/03/2024:
CONCLUSIONS
Normal LV size with moderately reduced systolic function. LVEF 35-40%.
Akinesis of the mid to distal septal wall and apex.
Right ventricle is moderately dilated with mildly reduced systolic function.
Mild mitral regurgitation
Mild to moderate aortic regurgitation.
Moderate tricuspid regurgitation. Estimated PASP 71 mmHg.
Compared to prior echocardiogram on 05/12/2023, there is no significant change.
CT Pelvis, 11/07/2024:
IMPRESSION:
1. No findings at CT highly suspicious for osteomyelitis. There is chronic sacrococcygeal subluxation. Unchanged diffuse abnormally increased osseous sclerosis.
2. Small volume of ascites. Anasarca.
3. Moderate parastomal hernia. Small volume of ascites within the hernia.
4. Juan catheter in position. Mild diffuse urinary bladder wall thickening.
Physical Exam
Vital Signs/Labs
Vital Signs
Temp Pulse Resp BP Pulse Ox
98.1 F 60 18 117/52 98
11/12/24 07:00 11/12/24 08:27 11/12/24 07:00 11/12/24 08:27 11/12/24 07:00
11/11/24 11/12/24 11/13/24
06:59 06:59 06:59
Actual Weight 82.01 kg 81.057 kg
11/10/24 08:09
11/12/24 05:41
Magnesium 2.2 mg/dl (1.6-2.3) 11/11/24 08:12
11/02/24
13:05
Jkh-Y-Meaxbkwjaoe Pept > [id number]
Physical Exam
Constitutional: No acute distress and Comfortable
EENT: Anicteric and Moist mucous membranes
Cardiovascular: Rhythm/rate is irregular and S1S2 is normal
Respiratory: Respiratory effort normal and Lungs clear to auscul.
GI: Soft, Distention absent and Non tender
Neuro/Psych: AO x 3
Other: Skin (warm )
Data Reviewed
-
Date of Service: November 12, 2024
Labs: Labs Reviewed by me
[2024-11-12 15:45] VITALS: BP 114/65
[2024-11-12 16:52] LABS: Glucose - Point of Care 170 mg/dl (70-99)
[2024-11-12] MEDS: NOVOLOG FLEXPEN-MODERATE RESISTANCE 1 UNITS SC (18:02)
[2024-11-12 21:36] LABS: Glucose - Point of Care 212 mg/dl (70-99)
[2024-11-12] MEDS: LIPITOR 40 MG PO (22:19)
[2024-11-12] MEDS: REMERON 7.5 MG PO (22:20)
[2024-11-12] MEDS: LANTUS 0.14 UNITS SC (22:21)
[2024-11-12 23:35] VITALS: BP 104/57
[2024-11-13 06:21] VITALS: BMI 27.7
[2024-11-13 07:00] VITALS: BP 124/51
[2024-11-13 07:34] LABS: Calcium 8.7 mg/dl (8.4-10.2); Carbon Dioxide 31 mmol/L (22-30); Chloride 101 mmol/L (98-107); Estimated Creatinine Clearance 13 ml/min; Glucose 162 mg/dl (70-99); Potassium 3.8 mmol/L (3.5-5.1); Sodium 141 mmol/L (135-145); eGFR 12.45
[2024-11-13 07:40] LABS: Glucose - Point of Care 183 mg/dl (70-99)
[2024-11-13 07:50] LABS: Blood Urea Nitrogen 127 mg/dl (7-17)
[2024-11-13] MEDS: NOVOLOG FLEXPEN SC (09:53)
[2024-11-13] MEDS: IMDUR (EXTENDED RELEASE) 30 MG PO (09:54)
[2024-11-13] MEDS: SODIUM BICARBONATE 650 MG PO ×2 (09:54→21:33)
[2024-11-13] MEDS: PROTONIX 40 MG PO (09:55)
[2024-11-13] MEDS: VITAMIN B-12 1000 MCG PO (09:55)
[2024-11-13] MEDS: APRESOLINE 25 MG PO ×3 (09:55→21:35)
[2024-11-13] MEDS: TOPROL XL 25 MG PO (09:55)
[2024-11-13] MEDS: LASIX 80 MG PO (09:56)
[2024-11-13] MEDS: ELIQUIS 5 MG PO ×2 (09:56→21:34)
[2024-11-13] MEDS: BUSPAR 5 MG PO ×2 (09:56→21:34)
[2024-11-13] MEDS: NOVOLOG FLEXPEN-MODERATE RESISTANCE 1 UNITS SC (09:59)
[2024-11-13] MEDS: NOVOLOG FLEXPEN 6 UNITS SC ×3 (09:59→16:58)
--- NOTE | 2024-11-13 10:00 | W.PN.NEPH.PH ---
Today's Communication / Plan
-
Changed back to IV Lasix
Follow BMP
Possible right heart cath tomorrow if patient agrees
Assessment/Plan
-
Assessment
CKD4 (2.6)
ANDI
Metabolic acidosis
diabetes mellitus type 2 with proteinuria
Heart failure reduced ejection fractionEF 30-35%
Paroxysmal atrial fibrillation
Ileostomy
Failure to thrive
Plan
Continue diuresis,weights down
Follow BMP, cardiorenal syndrome and plan
Creatinine at 3.7 but BUN up to 127
Will change patient back to IV Lasix 80 mg to promote diuresis that she is still above her dry weight which was actually never established
Cardiology may do right heart cath on Thursday to determine course of diuresis but I still believe we will need to progress on to HD
I reiterated to the patient that she will likely require dialysis at some point and she did understand this
The patient continues to be evasive about committing to dialysis
Fortunately there is no emergent need for dialysis at this time
Continue Jalloh catheter
High risk situation
-
-
Date of Service: November 13, 2024
CC / HPI / ROS
-
Chief Complaint:
Acute kidney injury
History of Present Illness:
Creatinine up to 3.7
Potassium 3.8
BUN 128
Hemodynamically stable
improved UOP with jalloh
remains on high dose lasix IV
high risk situation
Review of Systems:
on RA, no resting sob or cp
no n/v
Weight down
Nonoliguric
Labs
-
Labs:
WBC 5.7 10^3/uL (4.8-10.8) 11/10/24 08:09
RBC 3.57 10^6/uL (4.20-5.40) L 11/10/24 08:09
Hgb 10.4 g/dL (12.0-16.0) L 11/10/24 08:09
Hct 34.2 % (37.0-47.0) L 11/10/24 08:09
Plt Count 103 10^3/uL (130-400) L 11/10/24 08:09
Sodium 141 mmol/L (135-145) 11/13/24 07:03
Potassium 3.8 mmol/L (3.5-5.1) 11/13/24 07:03
Chloride 101 mmol/L (98-107) 11/13/24 07:03
Carbon Dioxide 31 mmol/L (22-30) H 11/13/24 07:03
BUN 127 mg/dl (7-17) H* 11/13/24 07:03
Creatinine 3.7 mg/dL (0.6-1.0) H 11/13/24 07:03
eGFR 12.45 11/13/24 07:03
Glucose 162 mg/dl (70-99) H 11/13/24 07:03
Calcium 8.7 mg/dl (8.4-10.2) 11/13/24 07:03
Qot-J-Xfxkhyahbxi Pept > 17341 pg/ml 11/02/24 13:05
Albumin 3.3 g/dl (3.5-5.0) L 11/02/24 10:47
Physical Exam
-
Vital Signs:
Vital Signs
Temp Pulse Resp BP Pulse Ox
97.5 F 60 10 125/51 95
11/13/24 07:00 11/13/24 09:55 11/13/24 07:00 11/13/24 09:55 11/13/24 07:00
Cardiovascular:: Regular rate and rhythm
Respiratory:: Bilateral: Coarse
Lung Excursion:: Normal
Abdomen:: Nontender and Soft
Bowel Sounds:: Normal
Extremity Edema:: +2: Bilateral:
[2024-11-13 11:34] LABS: Glucose - Point of Care 265 mg/dl (70-99)
[2024-11-13] MEDS: LASIX 80 MG IV ×2 (12:17→16:48)
--- NOTE | 2024-11-13 12:27 | W.PN.HOSP.TC ---
Today's Communication/Plan
-
Potential Rt heart cath
Assessment / Plan
Assessment / Plan
Acute on Chronic HFrEF:
Echo 10/03/2024: Normal LV size with moderately reduced systolic function. LVEF 35-40%.
Akinesis of the mid to distal septal wall and apex.
Right ventricle is moderately dilated with mildly reduced systolic function.
Mild mitral regurgitation
Mild to moderate aortic regurgitation.
Moderate tricuspid regurgitation. Estimated PASP 71 mmHg.
Compared to prior echocardiogram on 05/12/2023, there is no significant change.
IV diuretics, Lasix 80 mg IV twice a day then changed to Lasix 80 mg po daily, now back on IV Lasix and Zaroxolyn 5 mg discontinued
s/p IV Diuril 500 mg on 11/03, 11/04, and 11/05
Requires intensive monitoring
BNP upon admission more than 27,000
Monitor strict I/O
Monitor daily weight
92.2-->88.7-->85.5-->84.5-->83.1-->82kg
Monitor renal function and electrolytes
K 3.7-->3.5-->3.6-->3.2-->3.5-->3.7-->3.[address] Centeno is considering Rt heart cath for tomorrow
Continue guideline-directed medical therapy for heart failure (GDMT)--> B-Blockers, hydralazine and nitrates and at times on hold due to hypotension. Rest of GDMT limited by renal function and hypotension including Gianluca Inh/ARB/ARNI, MRA, SGLT-i.
Fluid restriction
Salt restriction
Heart failure education
Follow up clinical response
Cardiology consult appreciated
Updated family prior
PT OT recommends skilled rehab when medically ready.
Acute Kidney Injury on CKD IV, suspect cardiorenal syndrome
-Creatinine 4.4-->4.2-->4.1-->3.8-->4.0-->3.6-->3.8-->3.7 BUN 120-->128-->128-->128-->124-->126-->125-->127
-Consult Nephrology appreciated
-renal ultrasound--> no hydronephrosis and normal kidney appearance
-Monitor bladder scans
-Patient received IVFs in ED--> stopped IV fluids and on IV diuretics now.
-On IV diuresis now.
-If not improvement might need to consider HD, pt remains hesitant on HD
Metabolic Acidosis
-Likely related to renal failure, better
-Bicarb improving from 14--> 21-->22-->23-->26-->28-->30-->31
Metabolic encephalopathy
-Suspect etiology uremia related
-Obtained CT of the head without contrast: no acute intracranial abnormalities
-Restarted buspirone and mirtazapine
Persistent A-Fib:
-Continue Eliquis for anticoagulation
-Continue metoprolol for rate control
ASCVD
-Continue Lipitor
-Continue Isosorbide Mononitrate
Essential Hypertension
-Continue hydralazine and metoprolol with hold parameters
Diabetes Mellitus, Type II - Uncontrolled
-HgbA1c 10.8 in Sep 2024
-Decreased Lantus and NovoLog doses in setting of ANDI upon admission--> BS persistently high so will increase gradually back up from 10 to 12 units Lantus and from 4 to 6 units NovoLog and more room to increase since home doses are 20 long acting
and 12 short acting insulin.
-Monitor sugars and continue coverage insulin Glu remain in 109-243 range
Anemia of Chronic Disease
-Hb 9.6-->10.9-->10.4
-Hgb stable
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
concerned for osteomyelitis
CT scan of area: 1. No findings at CT highly suspicious for osteomyelitis. There is chronic sacrococcygeal subluxation. Unchanged diffuse abnormally increased osseous sclerosis.
2. Small volume of ascites. Anasarca.
3. Moderate parastomal hernia. Small volume of ascites within the hernia.
4. Juan catheter in position. Mild diffuse urinary bladder wall thickening
Thrombocytopenia
-Plt 86-87k--BETTER-->102-->103k
-Continue to monitor closely
Anxiety/Depression
-Continue buspirone and mirtazapine
GERD
-Continue Protonix
DVT proph: Eliquis
discussed with Dr. Centeno
speech therapy input appreciated: 'Continue with REGULAR SOLIDS, THIN LIQUIDS, and meds as tolerated.
- General aspiration and REFLUX precautions: Fully upright for ALL PO intake and for at least 60 minutes after PO intake; small bites/sips; alternate bites/sips; chew food thoroughly; only allow pt to eat/drink when she is fully awake/alert.
- STAFF MIDWIFE to f/u re: pt's diet tolerance.'
Code Status: DNR
call placed and discussed with son 11/12. He is aware that his mother does not want dialysis and is also aware of limited options. Await decision as to next step
Anticipated Discharge: > 48 hours
Subjective/Interval History
-
Date of Service: November 13, 2024
Tells me she is comfortable
Objective Data
-
Labs:
Laboratory Results
11/13/24
07:03
Sodium 141
Potassium 3.8
Chloride 101
Carbon Dioxide 31 H
BUN 127 H*
Creatinine 3.7 H
Glucose 162 H
Calcium 8.7
Vital Signs:
Vital Signs
Temp Pulse Resp BP Pulse Ox
97.5 F 60 10 125/51 95
11/13/24 07:00 11/13/24 09:55 11/13/24 07:00 11/13/24 09:55 11/13/24 07:00
I&O
11/12/24 11/13/24 11/14/24
06:59 06:59 06:59
Intake Total 1320 / 1320 730 / 730
Output Total 1775 / 1775 1725 / 1725
Balance -455 / -455 -995 / -995
Review of Systems
-
History Source: Coordinated Provider (reviewed with RN)
Constitutional: Denies Fever
Respiratory: Reports No Symptoms
Cardiac: Reports No Symptoms; Denies Chest Pain
Neuro: Reports Weakness
Physical Exam
-
General: Well Developed, No Apparent Distress and Appears Chronically Ill (very weak)
HEENT: Normocephalic and Atraumatic
Respiratory: Negative Wheezes or Rales (none appreciated today)
Cardiac: Regular Rhythm, S1/S2 and Murmur (3/6 jose)
GI: Soft
Genito-urinary: No Costovertebral Tender
Skin: Ulcers (left ischial stage 4 pressure injury)
Neuro: AO x 3
Hematologic / Lymphatic: No Lymphadenopathy
Psych: Calm
--- NOTE | 2024-11-13 13:08 | W.PN.CD ---
Today's Communication / Plan
-
N.p.o. after midnight for right heart catheterization.
Agree with intensification of her diuretics.
Impression / Plan
-
Impression/Plan: 74 y/o female with CHB s/p PPM, persistent atrial fibrillation, CAD s/p CABG and ICMO admitted with decompensated HFrEF with ANDI, found to have severe decubitus ulcers.
#HFrEF
-Acute on chronic - improving. She was 75kg one month ago.
-High risk situation with cardiorenal syndrome, and high risk for HD initiation.
-Weight trending down, BUN and creatinine are markedly elevated.
-Discussed with Dr. Centeno, dialysis seems eminent, but right heart catheterization would likely help planning for this, will
-Meanwhile, we both agree that changing her back to IV Lasix for more aggressive trial given the fact that her dry weight last month was significantly lower is reasonable
-Close monitoring of labs, telemetry, weight.
-GDMT with metoprolol succinate, isosorbide mononitrate and hydralazine as hemodynamics will permit.
-No role for ACEI/ARB/ARNi/MRA/SGLT2i given renal function.
#ICM
-Chronic.
-LVEF = EF 35-40% with mild AI, moderate TR (TTE, 10/03/2024).
-GDMT as above.
#ANDI on CKD
-Nephrology consulted.
-High risk for progression to ESRD/MANAGER US[employer] INTERFACE. Patient is aware.
-BUN and creatinine remain markedly elevated
#Atrial fibrillation
-Persistent, currently in atrial fibrillation.
-Rate control with metoprolol.
-CHADS2-Vasc = 4 (CHF, Age x1, vascular disease, female gender).
-Therapeutic anticoagulation with apixaban.
#CAD
-Chronic.
-Hx CABG (TRAORE to LAD, SVG to OM, SVG to RPDA).
-Secondary prevention with high dose, high potency statin.
-Continue metoprolol.
#Complete Heart Block/Pacemaker
-Chronic, stable.
Subjective/Interval History:
Weight is down. She denies shortness of breath.
DATA:
TTE, 10/03/2024:
CONCLUSIONS
Normal LV size with moderately reduced systolic function. LVEF 35-40%.
Akinesis of the mid to distal septal wall and apex.
Right ventricle is moderately dilated with mildly reduced systolic function.
Mild mitral regurgitation
Mild to moderate aortic regurgitation.
Moderate tricuspid regurgitation. Estimated PASP 71 mmHg.
Compared to prior echocardiogram on 05/12/2023, there is no significant change.
CT Pelvis, 11/07/2024:
IMPRESSION:
1. No findings at CT highly suspicious for osteomyelitis. There is chronic sacrococcygeal subluxation. Unchanged diffuse abnormally increased osseous sclerosis.
2. Small volume of ascites. Anasarca.
3. Moderate parastomal hernia. Small volume of ascites within the hernia.
4. Juan catheter in position. Mild diffuse urinary bladder wall thickening.
Physical Exam
Vital Signs/Labs
Vital Signs
Temp Pulse Resp BP Pulse Ox
97.5 F 60 10 125/51 95
11/13/24 07:00 11/13/24 09:55 11/13/24 07:00 11/13/24 09:55 11/13/24 07:00
11/12/24 11/13/24 11/14/24
06:59 06:59 06:59
Actual Weight 81.057 kg 80.059 kg
11/10/24 08:09
11/13/24 07:03
Magnesium 2.2 mg/dl (1.6-2.3) 11/11/24 08:12
11/02/24
13:05
Vfk-F-Ggnticriclf Pept > [id number]
Physical Exam
Constitutional: No acute distress
Cardiovascular: Rhythm & rate is regular, JVD pressure is normal, Systolic murmur absent, Diastolic murmur absent and Pedal edema present (Bilateral 1+)
Respiratory: Respiratory effort normal, Lungs clear to auscul., Wheeze Absent, Crackles Absent and Rhonchi Absent
Neuro/Psych: AO x 3
Data Reviewed
-
Date of Service: November 13, 2024
Medical Decision Making: Review of Case with other Provider (Reviewed case with Dr. Centeno and Dr. De León. Dr. Centeno feels a right heart cath would be helpful in managing her moving forward, although everyone agree she will likely need dialysis.
I also agree right heart cath will be helpful. Additionally we will try to intensify her diuretics.)
EKG: Other
[2024-11-13] MEDS: HYDROPHOR 1 APPLIC TOPICAL (13:09)
[2024-11-13] MEDS: ANTIFUNGAL CLEAR 1 APPLIC TOPICAL ×2 (13:09→21:35)
[2024-11-13] MEDS: NOVOLOG FLEXPEN-MODERATE RESISTANCE 5 UNITS SC ×2 (13:10→16:58)
[2024-11-13 15:00] VITALS: BP 122/58
[2024-11-13 16:45] LABS: Glucose - Point of Care 255 mg/dl (70-99)
[2024-11-13] MEDS: REMERON 7.5 MG PO (21:32)
[2024-11-13 21:33] LABS: Glucose - Point of Care 265 mg/dl (70-99)
[2024-11-13] MEDS: LIPITOR 40 MG PO (21:33)
[2024-11-13] MEDS: LANTUS 0.14 UNITS SC (21:34)
[2024-11-13 23:40] VITALS: BP 114/49
[2024-11-14 05:34] VITALS: BMI 27.8
[2024-11-14 05:56] LABS: Glucose - Point of Care 144 mg/dl (70-99)
[2024-11-14 06:06] LABS: % Basophils 0.6 % (0-2); % Eosinophils 3.6 % (0-6); % Immature Granulocytes 0.6 % (0-0.5); % Lymphocytes 14.1 % (20.5-51.1); % Monocytes 11.9 % (1.7-9.3); % Neutrophils 69.2 % (42.2-75.2); Absolute Eosinophils 0.1 10^3/uL (0-0.7); Absolute Lymphocytes 0.5 10^3/uL (1.2-3.4); Absolute Monocytes 0.4 10^3/uL (0.1-0.6); Absolute Neutrophils 2.5 10^3/uL (1.4-6.5); Hematocrit 30.7 % (37.0-47.0); Hemoglobin 9.4 g/dL (12.0-16.0); Mean Corp Hgb Conc. 30.6 g/dL (33.0-37.0); Mean Corpuscular Hgb 29.7 pg (27.0-31.0); Mean Corpuscular Volume 96.8 fL (81.0-99.0); Nucleated Red Blood Cells % 0 %; Red Blood Cell Count 3.17 10^6/uL (4.20-5.40); Red Cell Dist. Width 16.3 % (11.5-14.5); White Blood Cell Count 3.6 10^3/uL (4.8-10.8)
[2024-11-14 06:14] LABS: INR 1.62; PT 19.5 Sec (11.4-14.6)
[2024-11-14 06:36] LABS: Calcium 8.5 mg/dl (8.4-10.2); Carbon Dioxide 28 mmol/L (22-30); Chloride 102 mmol/L (98-107); Estimated Creatinine Clearance 17 ml/min; Glucose 137 mg/dl (70-99); Potassium 3.7 mmol/L (3.5-5.1); Sodium 140 mmol/L (135-145); eGFR 14.29
[2024-11-14 06:45] LABS: Blood Urea Nitrogen 135 mg/dl (7-17)
[2024-11-14 07:30] VITALS: BP 119/43
--- NOTE | 2024-11-14 08:40 | W.PN.HOSP.TC ---
Today's Communication/Plan
-
Right heart cath today
Assessment / Plan
Assessment / Plan
Physical exam:
General: Acutely and chronically ill
HEENT: Normocephalic, Atraumatic and Moist Mucous Membranes
Respiratory: Clear to Auscultation; Negative Wheezes, Rales or Rhonchi
Cardiac: Irregular rate and rhythm and S1/S2
GI: Soft, Nontender and Nondistended
Musculoskeletal: No Clubbing, No Cyanosis. Bilateral lower extremities edema
Neuro: Awake, Alert and Oriented, generalized weakness
Skin: Sacral and heel ulcers.
Psych: Calm
A/P:
Acute on Chronic HFrEF:
IV diuretics, Lasix 80 mg twice a day
Plan for right heart catheter today
Continue Juan catheter
s/p IV Diuril last week
Requires intensive monitoring
BNP upon admission more than 27,000
Monitor strict I/O
Monitor daily weight
Monitor renal function and electrolytes
Reviewed latest echocardiogram on our system--> EF 35 to 40% on 10/03
Continue guideline-directed medical therapy for heart failure (GDMT)--> B-Blockers, hydralazine and nitrates and at times on hold due to hypotension. Rest of GDMT limited by renal function and hypotension including Gianluca Inh/ARB/ARNI, MRA, SGLT-i.
Fluid restriction
Salt restriction
Heart failure education
Follow up clinical response
Cardiology consult appreciated
Acute Kidney Injury on CKD IV, suspect cardiorenal syndrome
-Today's creatinine 3.3
-Peak creatinine 4.7 during this hospital stay (last creatinine prior to admission 2.6 on 10/07)
-Consult Nephrology appreciated
-renal ultrasound--> no hydronephrosis and normal kidney appearance
-Monitor bladder scans
-On IV diuresis now.
-If not improvement as above might need to consider HD
Metabolic Acidosis
-Likely related to renal failure
-Bicarb improving from 14 up to 20 today
Persistent A-Fib:
-Continue Eliquis for anticoagulation
-Continue metoprolol for rate control
ASCVD
-Continue Lipitor
-Continue Isosorbide Mononitrate
Essential Hypertension
-Continue hydralazine and metoprolol with hold parameters
Diabetes Mellitus, Type II - Uncontrolled
-HgbA1c 10.8 in Sep 2024
-On Lantus 14 units daily and NovoLog 6 units ac
-Monitor sugars and continue coverage insulin
Anemia of Chronic Disease
-Hgb stable
Thrombocytopenia
-Continue to monitor closely
Anxiety/Depression
-Continue buspirone and mirtazapine
GERD
-Continue Protonix
Other medical problems:
Left lower extremity negative Doppler
Elevated troponin due to non myocardial ischemic injury.
Pancytopenia.
Stage IV left ischial pressure injury, present on admission
Stage III sacral pressure injury, POA
DVT proph: Eliquis
Code Status: DNR
Total time spent on today's encounter was 52 minutes which included time spent in counseling the patient/family regarding diagnosis and treatment plan as listed above, goals of care, and symptom management. Case was discussed with nursing staff,
specialists, and care coordinators/case management. All labs and imaging personally reviewed by me. Remainder the time spent in detailed review of previous records, lab data, imaging, and other medical provider documentation.
Anticipated Discharge: > 48 hours
Subjective/Interval History
-
Date of Service: November 14, 2024
Patient still with peripheral edema. No worsening shortness of breath. No chest pain. Afebrile
Objective Data
-
Labs:
Laboratory Results
11/14/24
05:38
WBC 3.6 L
Hgb 9.4 L
Hct 30.7 L
Plt Count
PT 19.5 H
INR 1.62
Sodium 140
Potassium 3.7
Chloride 102
Carbon Dioxide 28
BUN 135 H*
Creatinine 3.3 H
Glucose 137 H
Calcium 8.5
Vital Signs:
Vital Signs
Temp Pulse Resp BP Pulse Ox
98.8 F 61 16 119/43 95
11/14/24 07:30 11/14/24 07:30 11/14/24 07:30 11/14/24 07:30 11/14/24 07:30
I&O
11/13/24 11/14/24 11/15/24
06:59 06:59 06:59
Intake Total 730 / 730 960 / 960
Output Total 1725 / 1725 1875 / 1875
Balance -995 / -995 -915 / -915
[2024-11-14] MEDS: ELIQUIS 5 MG PO ×2 (09:19→21:20)
[2024-11-14] MEDS: IMDUR (EXTENDED RELEASE) 30 MG PO (09:19)
[2024-11-14] MEDS: BUSPAR 5 MG PO ×2 (09:20→21:20)
[2024-11-14] MEDS: APRESOLINE 25 MG PO ×3 (09:20→21:20)
[2024-11-14] MEDS: PROTONIX 40 MG PO (09:20)
[2024-11-14] MEDS: TOPROL XL 25 MG PO (09:20)
[2024-11-14] MEDS: VITAMIN B-12 1000 MCG PO (09:20)
[2024-11-14] MEDS: SODIUM BICARBONATE 650 MG PO ×2 (09:20→21:20)
[2024-11-14] MEDS: LASIX 80 MG IV ×2 (09:21→16:04)
[2024-11-14] MEDS: HYDROPHOR 1 APPLIC TOPICAL (09:21)
[2024-11-14] MEDS: ANTIFUNGAL CLEAR 1 APPLIC TOPICAL ×2 (09:22→22:24)
[2024-11-14] MEDS: NOVOLOG FLEXPEN-MODERATE RESISTANCE SC ×2 (10:04→13:04)
[2024-11-14] MEDS: NOVOLOG FLEXPEN SC ×2 (10:04→13:04)
[2024-11-14 12:05] LABS: Glucose - Point of Care 168 mg/dl (70-99)
--- NOTE | 2024-11-14 13:09 | W.PN.CD ---
Today's Communication / Plan
-
RHC today.
Diuretic guidance based on RHC findings.
Impression / Plan
-
Impression/Plan: 74 y/o female with CHB s/p PPM, persistent atrial fibrillation, CAD s/p CABG and ICMO admitted with decompensated HFrEF with ANDI, found to have severe decubitus ulcers.
#HFrEF
-Acute on chronic - improving. She was 75kg one month ago.
-High risk situation with cardiorenal syndrome, and high risk for HD initiation.
-Weight trending down, BUN and creatinine are markedly elevated.
-Close monitoring of labs, telemetry, weight.
-GDMT with metoprolol succinate, isosorbide mononitrate and hydralazine as hemodynamics will permit.
-No role for ACEI/ARB/ARNi/MRA/SGLT2i given renal function.
-Continue IV diuresis.
-RHC to clarify filling pressures, dry weight.
#ICM
-Chronic.
-LVEF = EF 35-40% with mild AI, moderate TR (TTE, 10/03/2024).
-GDMT as above.
#ANDI on CKD
-Nephrology consulted.
-High risk for progression to ESRD/LAY BROTHER. Patient is aware.
-BUN and creatinine remain markedly elevated
#Atrial fibrillation
-Persistent, currently in atrial fibrillation.
-Rate control with metoprolol.
-CHADS2-Vasc = 4 (CHF, Age x1, vascular disease, female gender).
-Therapeutic anticoagulation with apixaban.
#CAD
-Chronic.
-Hx CABG (TRAORE to LAD, SVG to OM, SVG to RPDA).
-Secondary prevention with high dose, high potency statin.
-Continue metoprolol.
#Complete Heart Block/Pacemaker
-Chronic, stable.
Subjective/Interval History:
Diuretics back to IV from PO.
Weight is stable, mildly elevated from yesterday.
BUN up to 135 but Cr down to 3.3.
DATA:
TTE, 10/03/2024:
CONCLUSIONS
Normal LV size with moderately reduced systolic function. LVEF 35-40%.
Akinesis of the mid to distal septal wall and apex.
Right ventricle is moderately dilated with mildly reduced systolic function.
Mild mitral regurgitation
Mild to moderate aortic regurgitation.
Moderate tricuspid regurgitation. Estimated PASP 71 mmHg.
Compared to prior echocardiogram on 05/12/2023, there is no significant change.
CT Pelvis, 11/07/2024:
IMPRESSION:
1. No findings at CT highly suspicious for osteomyelitis. There is chronic sacrococcygeal subluxation. Unchanged diffuse abnormally increased osseous sclerosis.
2. Small volume of ascites. Anasarca.
3. Moderate parastomal hernia. Small volume of ascites within the hernia.
4. Juan catheter in position. Mild diffuse urinary bladder wall thickening.
Physical Exam
Vital Signs/Labs
Vital Signs
Temp Pulse Resp BP Pulse Ox
37.1 C 61 16 119/43 95
11/14/24 07:30 11/14/24 07:30 11/14/24 07:30 11/14/24 07:30 11/14/24 07:30
11/13/24 11/14/24 11/15/24
11:59 11:59 11:59
Actual Weight 80.059 kg 80.422 kg
11/14/24 05:38
11/14/24 05:38
PT 19.5 Sec (11.4-14.6) H 11/14/24 05:38
INR 1.62 11/14/24 05:38
Magnesium 2.2 mg/dl (1.6-2.3) 11/11/24 08:12
11/02/24
13:05
Wnd-O-Wdhdfksuqmt Pept > 26984
Physical Exam
Constitutional: No acute distress and Comfortable
EENT: Anicteric and Moist mucous membranes
Cardiovascular: Rhythm & rate is regular, Pedal edema is absent, JVD pressure is normal, S1S2 is normal and Murmur/rub/gallop absent
Respiratory: Respiratory effort normal, Lungs clear to auscul., Wheeze Absent, Crackles Absent and Rhonchi Absent
GI: Soft, Distention absent, Flat, Non tender and Normal bowel sounds
Neuro/Psych: AO x 3
Data Reviewed
-
Date of Service: November 14, 2024
Medical Decision Making: Reviewed Test Results, Independent Historian Assessment and Test Interpretation
EKG: Tracing Personally Visualized and interpreted and Report Reviewed by me
Echo: Report Reviewed by me
X-Ray/CT/US/MRI/NUC/PET: Image Personally Visualized and interpreted and Report Reviewed by me
Medical Tests (PFT, Pathology etc): Image Personally Visualized and interpreted and Report Reviewed by me
Labs: Labs Reviewed by me
Old Records: Reviewed
--- NOTE | 2024-11-14 15:31 | ITS.CL.CATH ---
[employer] - Catheterization
Cardiac Catheterization
Procedure Report:
RIGHT HEART CATHETERIZATION
Date of Procedure: 11/14/2024
Referring: Brenna Cason M.D.
INDICATION: Assess volume status, acute on chronic renal failure.
ACCESS:
5 [place]an antecubital fossa using a modified Seldinger technique under ultrasound guidance.
CATHETERS:
1. 5 [place]an balloon wedge.
2. 4 Singaporean multipurpose catheter.
PROCEDURE:
The patient was prepped and draped in standard sterile fashion. The area for antecubital access was anesthetized with 1% lidocaine. A peripheral vein was identified on ultrasound guidance. Using a modified Seldinger technique with a tourniquet
tied, the vein was accessed and a wire was inserted. A 5 Singaporean sheath was inserted into the basilic vein. A 5 Singaporean balloon wedge catheter was advanced through the sheath but would not pass beyond the vein near the axilla. There appeared to be
local, focal calcification. In spite of numerous techniques including wire guidance with a power turn flex, we could not advance the 5 [place]an catheter. The balloon wedge catheter was withdrawn and a 4 [place]an multipurpose catheter was advanced over
the coronary wire into the superior vena cava. An SVC oxygen saturation was drawn. The multipurpose catheter was advanced into the pulmonary artery and a pulmonary artery oxygen saturation was drawn. Arterial oxygen saturation was assumed from pulse
oximetry. Cardiac output was calculated using the Devi equation. The PA, wedge, RV and RA pressures were measured on pullback. Given the fact that we could not obtain a wedge pressure with the multipurpose catheter, we readvanced the 5 Singaporean
balloon wedge in the hope that passing the 4 Singaporean catheter would have dilated the vein. Unfortunately, the balloon which failed to pass a second time. The 5 Singaporean sheath was removed and manual pressure was held for hemostasis.
Weight (kg): 80.4
PA (s/d/x mmHg): 85/32/49
PCWP (a/v/x mmHg): Not obtained.
RV (s/x mmHg): 83/20
RA (a/v/x mmHg): 24/22/20
SVC SvO2 (%): 56.5
IVC SvO2 (%): Not obtained.
RA SvO2 (%): Not obtained.
RV SvO2 (%): Not obtained.
PA SvO2 (%): 53.5
SaO2 (%): 94.0 (assumed)
Hbg (g/dL): 9.6
Devi
CO (liters/minute): 3.17
CI (liters/minute/m2): 1.65
Thermodilution
CO (liters/minute): Not obtained.
CI (liters/minute/m2): Not obtained.
TPG (mmHg): 17 (assuming PAD = PCWP)
PVR (Rosario Units): 5.36
AVO2 Difference (Volume %): 5.29
Radiation (mGy): 41.83
DAP (cm2.Gy): 7.1238
Fluoroscopy time (minutes): 6.6
CONCLUSION:
1. Right axillary/subclavian vein stenosis that will not permit passage of a 5 Singaporean balloon wedge catheter.
2. Assuming that PAD = PCWP, severely elevated filling pressures (PAD = 32 mmHg).
3. Severe precapillary and postcapillary pulmonary hypertension (PA mean = 49 mmHg, PAD/PCWP = 32 mmHg, cardiac output = 3.17 L/min, PVR = 5.36 Rosario units).
4. Mixed picture, likely at least mildly impaired cardiac function (cardiac index = 1.65 L/min/m�, AVO2 difference <5.5 volume%).
RECOMMENDATIONS:
1. Expectant management after right heart catheterization via right antecubital approach.
2. Continue diuresis.
3. Consider pulmonary vasodilator therapy given precapillary pulmonary hypertension with elevated PVR.
Copy to: Brenna Cason M.D., Jesus Solano D.O.
Jesus Solano D.O., FACC, FACP
[2024-11-14 15:45] VITALS: BP 127/54
--- NOTE | 2024-11-14 17:14 | CM ---
Received call from Kimber ayala [facility] to get an update. Advised that plan is for patient to go to a SNF prior to returning home. Will keep her updated if there are any changes.
Plan: Case management will continue to follow and assist with discharge planning. SNF when stable.
[2024-11-14 17:28] LABS: Glucose - Point of Care 269 mg/dl (70-99)
[2024-11-14] MEDS: NOVOLOG FLEXPEN-MODERATE RESISTANCE 5 UNITS SC (18:41)
[2024-11-14] MEDS: NOVOLOG FLEXPEN 6 UNITS SC (18:41)
[2024-11-14] MEDS: LIPITOR 40 MG PO (21:20)
[2024-11-14] MEDS: REMERON 7.5 MG PO (21:20)
[2024-11-14 22:10] LABS: Glucose - Point of Care 235 mg/dl (70-99)
[2024-11-14] MEDS: LANTUS 0.14 UNITS SC (22:24)
[2024-11-14 23:40] VITALS: BP 118/45
[2024-11-15 05:58] VITALS: BMI 27.5
[2024-11-15 06:36] LABS: Hemoglobin 9.5 g/dL (12.0-16.0); Mean Corp Hgb Conc. 30.6 g/dL (33.0-37.0); Mean Corpuscular Hgb 29.5 pg (27.0-31.0); Mean Corpuscular Volume 96.3 fL (81.0-99.0); Mean Platelet Volume 10.7 fL (7.4-10.4); Platelet Count 102 10^3/uL (130-400); Red Blood Cell Count 3.22 10^6/uL (4.20-5.40); White Blood Cell Count 4.2 10^3/uL (4.8-10.8)
[2024-11-15 07:02] LABS: Calcium 8.7 mg/dl (8.4-10.2); Carbon Dioxide 29 mmol/L (22-30); Chloride 100 mmol/L (98-107); Estimated Creatinine Clearance 13 ml/min; Glucose 116 mg/dl (70-99); Potassium 3.6 mmol/L (3.5-5.1); Sodium 142 mmol/L (135-145); eGFR 12.45
[2024-11-15 07:09] LABS: Blood Urea Nitrogen 127 mg/dl (7-17)
[2024-11-15 07:48] VITALS: BP 129/52
[2024-11-15] MEDS: APRESOLINE 25 MG PO ×3 (08:08→22:36)
[2024-11-15] MEDS: ELIQUIS 5 MG PO ×2 (08:08→20:46)
[2024-11-15 08:09] LABS: Glucose - Point of Care 119 mg/dl (70-99)
[2024-11-15] MEDS: TOPROL XL 25 MG PO (08:09)
[2024-11-15] MEDS: VITAMIN B-12 1000 MCG PO (08:09)
[2024-11-15] MEDS: BUSPAR 5 MG PO ×2 (08:09→20:46)
[2024-11-15] MEDS: SODIUM BICARBONATE 650 MG PO ×2 (08:09→20:46)
[2024-11-15] MEDS: IMDUR (EXTENDED RELEASE) 30 MG PO (08:09)
[2024-11-15] MEDS: PROTONIX 40 MG PO (08:09)
[2024-11-15] MEDS: LASIX 80 MG IV ×2 (08:10→15:11)
[2024-11-15] MEDS: NOVOLOG FLEXPEN-MODERATE RESISTANCE SC (08:11)
[2024-11-15] MEDS: HYDROPHOR 1 APPLIC TOPICAL (08:12)
[2024-11-15] MEDS: ANTIFUNGAL CLEAR 1 APPLIC TOPICAL ×2 (08:13→20:47)
--- NOTE | 2024-11-15 10:44 | W.PN.HOSP.TC ---
Today's Communication/Plan
-
IV diuretics.
Assessment / Plan
Assessment / Plan
Physical exam:
General: Acutely and chronically ill
HEENT: Normocephalic, Atraumatic and Moist Mucous Membranes
Respiratory: Clear to Auscultation; Negative Wheezes, Rales or Rhonchi
Cardiac: Irregular rate and rhythm and S1/S2
GI: Soft, Nontender and Nondistended
Musculoskeletal: No Clubbing, No Cyanosis. Bilateral lower extremities edema
Neuro: Awake, Alert and Oriented, generalized weakness
Skin: Sacral and heel ulcers.
Psych: Calm
A/P:
Acute on Chronic HFrEF:
IV diuretics, Lasix 80 mg twice a day
Status post right heart catheter on 11/14--> R heart cath 11/14/2024 at 80.4 kg: RA 20, PA 85/32. Assume PCWP close to PAD of 32 mmHg.
Per cardiology aiming for a dry weight of about 75 kg or less
Continue Juan catheter
s/p IV Diuril last week
Requires intensive monitoring
BNP upon admission more than 27,000
Monitor strict I/O
Monitor daily weight
Monitor renal function and electrolytes
Reviewed latest echocardiogram on our system--> EF 35 to 40% on 10/03
Continue guideline-directed medical therapy for heart failure (GDMT)--> B-Blockers, hydralazine and nitrates and at times on hold due to hypotension. Rest of GDMT limited by renal function and hypotension including Gianluca Inh/ARB/ARNI, MRA, SGLT-i.
Fluid restriction
Salt restriction
Heart failure education
Follow up clinical response
Cardiology consult appreciated
Discussed with son over the phone today on 11/15
Acute Kidney Injury on CKD IV, suspect cardiorenal syndrome
-Today's creatinine 3.7
-Peak creatinine 4.7 during this hospital stay (last creatinine prior to admission 2.6 on 10/07)
-Consult Nephrology appreciated
-renal ultrasound--> no hydronephrosis and normal kidney appearance
-Monitor bladder scans
-On IV diuresis now.
-If not improvement as above might need to consider HD
Metabolic Acidosis
-Likely related to renal failure
-Bicarb improving from 14 up to 20 today
Persistent A-Fib:
-Continue Eliquis for anticoagulation
-Continue metoprolol for rate control
ASCVD
-Continue Lipitor
-Continue Isosorbide Mononitrate
Essential Hypertension
-Continue hydralazine and metoprolol with hold parameters
Diabetes Mellitus, Type II - Uncontrolled
-HgbA1c 10.8 in Sep 2024
-On Lantus 14 units daily and NovoLog 6 units ac
-Monitor sugars and continue coverage insulin
Anemia of Chronic Disease
-Hgb stable
Thrombocytopenia
-Continue to monitor closely
Anxiety/Depression
-Continue buspirone and mirtazapine
GERD
-Continue Protonix
Other medical problems:
Left lower extremity negative Doppler
Elevated troponin due to non myocardial ischemic injury.
Pancytopenia.
Stage IV left ischial pressure injury, present on admission
Stage III sacral pressure injury, POA
DVT proph: Eliquis
Code Status: DNR
Total time spent on today's encounter was 52 minutes which included time spent in counseling the patient/family regarding diagnosis and treatment plan as listed above, goals of care, and symptom management. Case was discussed with nursing staff,
specialists, and care coordinators/case management. All labs and imaging personally reviewed by me. Remainder the time spent in detailed review of previous records, lab data, imaging, and other medical provider documentation.
Anticipated Discharge: > 48 hours
Subjective/Interval History
-
Date of Service: November 15, 2024
Patient still edematous and less shortness of breath. No chest pain. Afebrile
Objective Data
-
Labs:
Laboratory Results
11/15/24
05:45
WBC 4.2 L
Hgb 9.5 L
Hct 31.0 L
Plt Count 102 L
Sodium 142
Potassium 3.6
Chloride 100
Carbon Dioxide 29
BUN 127 H*
Creatinine 3.7 H
Glucose 116 H
Calcium 8.7
Vital Signs:
Vital Signs
Temp Pulse Resp BP Pulse Ox
97.6 F 61 18 129/52 97
11/15/24 07:48 11/15/24 07:48 11/15/24 07:48 11/15/24 07:48 11/15/24 07:48
I&O
11/14/24 11/15/24 11/16/24
06:59 06:59 06:59
Intake Total 960 / 960 840 / 840
Output Total 1875 / 1875 2150 / 2150
Balance -915 / -915 -1310 / -1310
[2024-11-15] MEDS: NOVOLOG FLEXPEN 6 UNITS SC ×3 (10:48→19:41)
[2024-11-15 11:56] LABS: Glucose - Point of Care 180 mg/dl (70-99)
--- NOTE | 2024-11-15 12:19 | W.PN.CD ---
Today's Communication / Plan
-
Continue IV diuresis
Aim for weight of at least 75 kg if not lower
Impression / Plan
-
Background: 74 y/o female with CHB s/p PPM, persistent atrial fibrillation, CAD s/p CABG and ICMO admitted with decompensated HFrEF with ANDI, found to have severe decubitus ulcers.
HFrEF, acute on chronic
- R heart cath 11/14/2024 at 80.4 kg: RA 20, PA 85/32. Assume PCWP close to PAD of 32 mmHg
- Admit weight 88 kg but weight in Sep 2024 was 78.7 kg. She was 75kg one month ago.
- High risk situation with cardiorenal syndrome, and high risk for HD initiation.
- Weight trending down, BUN and creatinine are markedly elevated.
- Close monitoring of labs, telemetry, weight.
- GDMT with metoprolol succinate, isosorbide mononitrate and hydralazine as hemodynamics will permit.
- No role for ACEI/ARB/ARNi/MRA/SGLT2i given renal function.
- Continue IV diuresis.
- RHC to clarify filling pressures, dry weight.
ANDI on CKD
-Nephrology consulted.
-High risk for progression to ESRD/[employer]. Patient is aware.
-BUN and creatinine remain markedly elevated
Atrial fibrillation
-Persistent, currently in atrial fibrillation.
-Rate control with metoprolol.
-CHADS2-Vasc = 4 (CHF, Age x1, vascular disease, female gender).
-Therapeutic anticoagulation with apixaban
Chronic Ischemic cardiomyopathy, LVEF = EF 35-40% with mild AI, moderate TR (TTE, 10/03/2024).
Chronic CAD, prior CABG (TRAORE to LAD, SVG to OM, SVG to RPDA).
Chronic complete Heart Block/Pacemaker
Occluded right subclavian vein
Subjective/Interval History:
Weight gradually falling
DATA:
Right heart cath 11/14/2024:
CONCLUSION:
1. Right axillary/subclavian vein stenosis that will not permit passage of a 5 Lithuanian balloon wedge catheter.
2. Assuming that PAD = PCWP, severely elevated filling pressures (PAD = 32 mmHg).
3. Severe precapillary and postcapillary pulmonary hypertension (PA mean = 49 mmHg, PAD/PCWP = 32 mmHg, cardiac output = 3.17 L/min, PVR = 5.36 Rosario units).
4. Mixed picture, likely at least mildly impaired cardiac function (cardiac index = 1.65 L/min/m�, AVO2 difference <5.5 volume%).
RECOMMENDATIONS:
1. Expectant management after right heart catheterization via right antecubital approach.
2. Continue diuresis.
3. Consider pulmonary vasodilator therapy given precapillary pulmonary hypertension with elevated PVR.
TTE, 10/03/2024:
CONCLUSIONS
Normal LV size with moderately reduced systolic function. LVEF 35-40%.
Akinesis of the mid to distal septal wall and apex.
Right ventricle is moderately dilated with mildly reduced systolic function.
Mild mitral regurgitation
Mild to moderate aortic regurgitation.
Moderate tricuspid regurgitation. Estimated PASP 71 mmHg.
Compared to prior echocardiogram on 05/12/2023, there is no significant change.
CT Pelvis, 11/07/2024:
IMPRESSION:
1. No findings at CT highly suspicious for osteomyelitis. There is chronic sacrococcygeal subluxation. Unchanged diffuse abnormally increased osseous sclerosis.
2. Small volume of ascites. Anasarca.
3. Moderate parastomal hernia. Small volume of ascites within the hernia.
4. Juan catheter in position. Mild diffuse urinary bladder wall thickening.
Physical Exam
Vital Signs/Labs
Vital Signs
Temp Pulse Resp BP Pulse Ox
97.6 F 61 18 129/52 97
11/15/24 07:48 11/15/24 07:48 11/15/24 07:48 11/15/24 07:48 11/15/24 08:30
11/14/24 11/15/24 11/16/24
06:59 06:59 06:59
Actual Weight 80.422 kg 79.605 kg
11/15/24 05:45
11/15/24 05:45
PT 19.5 Sec (11.4-14.6) H 11/14/24 05:38
INR 1.62 11/14/24 05:38
Magnesium 2.2 mg/dl (1.6-2.3) 11/11/24 08:12
11/02/24
13:05
Wvn-W-Jursplllsyz Pept > 22167
Physical Exam
Constitutional: No acute distress
Cardiovascular: Rhythm & rate is regular and Pedal edema is absent
Respiratory: Respiratory effort normal and Lungs clear to auscul.
GI: Soft and Distention absent
Neuro/Psych: Alert
Data Reviewed
-
Date of Service: November 15, 2024
[2024-11-15 15:03] VITALS: BP 130/50
[2024-11-15] MEDS: NOVOLOG FLEXPEN-MODERATE RESISTANCE 1 UNITS SC ×2 (15:11→19:42)
--- NOTE | 2024-11-15 16:15 | W.PN.NEPH.PH ---
Today's Communication / Plan
-
continue diuretics discussed dialysis again
Assessment/Plan
-
Assessment
CKD4 (2.6)
ANDI
Metabolic acidosis
diabetes mellitus type 2 with proteinuria
Heart failure reduced ejection fractionEF 30-35%
Paroxysmal atrial fibrillation
Ileostomy
Failure to thrive
Plan
Continue diuresis,weights down
Follow BMP, cardiorenal syndrome and plan
Creatinine at 3.7 but BUN up to 127
I reiterated to the patient that she will likely require dialysis at some point and she did understand this was very upset today
right heartcath elevated pressures
will continue with diuretics for now= -1.3 L today
no acute need for dialysis at this time
-
-
Date of Service: November 15, 2024
CC / HPI / ROS
-
Chief Complaint:
Acute kidney injury
History of Present Illness:
Creatinine up to 3.7
Potassium 3.8
BUN 128
Hemodynamically stable
improved UOP with jalloh
remains on high dose lasix IV
high risk situation
Review of Systems:
on RA, no resting sob or cp
no n/v
Weight down
Nonoliguric
Labs
-
Labs:
WBC 4.2 10^3/uL (4.8-10.8) L 11/15/24 05:45
RBC 3.22 10^6/uL (4.20-5.40) L 11/15/24 05:45
Hgb 9.5 g/dL (12.0-16.0) L 11/15/24 05:45
Hct 31.0 % (37.0-47.0) L 11/15/24 05:45
Plt Count 102 10^3/uL (130-400) L 11/15/24 05:45
Sodium 142 mmol/L (135-145) 11/15/24 05:45
Potassium 3.6 mmol/L (3.5-5.1) 11/15/24 05:45
Chloride 100 mmol/L (98-107) 11/15/24 05:45
Carbon Dioxide 29 mmol/L (22-30) 11/15/24 05:45
BUN 127 mg/dl (7-17) H* 11/15/24 05:45
Creatinine 3.7 mg/dL (0.6-1.0) H 11/15/24 05:45
eGFR 12.45 11/15/24 05:45
Glucose 116 mg/dl (70-99) H 11/15/24 05:45
Calcium 8.7 mg/dl (8.4-10.2) 11/15/24 05:45
Tbi-K-Sxkjsdmymsi Pept > 26747 pg/ml 11/02/24 13:05
Albumin 3.3 g/dl (3.5-5.0) L 11/02/24 10:47
Physical Exam
-
Vital Signs:
Vital Signs
Temp Pulse Resp BP Pulse Ox
98.0 F 61 17 130/50 96
11/15/24 15:03 11/15/24 15:03 11/15/24 15:03 11/15/24 15:03 11/15/24 15:03
Cardiovascular:: Regular rate and rhythm
Respiratory:: Bilateral: Coarse
Lung Excursion:: Normal
Abdomen:: Nontender and Soft
Bowel Sounds:: Normal
Extremity Edema:: +2: Bilateral:
[2024-11-15 17:01] LABS: Glucose - Point of Care 234 mg/dl (70-99)
[2024-11-15 21:47] LABS: Glucose - Point of Care 260 mg/dl (70-99)
[2024-11-15] MEDS: LIPITOR 40 MG PO (22:35)
[2024-11-15] MEDS: REMERON 7.5 MG PO (22:35)
[2024-11-15] MEDS: LANTUS 0.14 UNITS SC (22:36)
[2024-11-15 23:40] VITALS: BP 144/54
[2024-11-16 05:59] VITALS: BMI 27.4
[2024-11-16 06:00] VITALS: BMI 27.4
[2024-11-16 06:48] LABS: Hematocrit 30.5 % (37.0-47.0); Hemoglobin 9.7 g/dL (12.0-16.0); Mean Corp Hgb Conc. 31.8 g/dL (33.0-37.0); Mean Corpuscular Hgb 29.8 pg (27.0-31.0); Mean Corpuscular Volume 93.6 fL (81.0-99.0); Red Blood Cell Count 3.26 10^6/uL (4.20-5.40); Red Cell Dist. Width 15.9 % (11.5-14.5); White Blood Cell Count 4.1 10^3/uL (4.8-10.8)
[2024-11-16 07:08] LABS: Platelet Count 92 10^3/uL (130-400)
[2024-11-16 07:10] VITALS: BP 129/48
[2024-11-16 07:23] LABS: Calcium 8.9 mg/dl (8.4-10.2); Carbon Dioxide 35 mmol/L (22-30); Chloride 99 mmol/L (98-107); Estimated Creatinine Clearance 13 ml/min; Glucose 94 mg/dl (70-99); Potassium 3.5 mmol/L (3.5-5.1); Sodium 141 mmol/L (135-145); eGFR 12.45
[2024-11-16 07:34] LABS: Blood Urea Nitrogen 131 mg/dl (7-17)
[2024-11-16 07:51] LABS: Glucose - Point of Care 95 mg/dl (70-99)
[2024-11-16] MEDS: NOVOLOG FLEXPEN-MODERATE RESISTANCE SC (08:03)
[2024-11-16] MEDS: BUSPAR 5 MG PO ×2 (08:57→19:58)
[2024-11-16] MEDS: VITAMIN B-12 1000 MCG PO (08:57)
[2024-11-16] MEDS: SODIUM BICARBONATE 650 MG PO ×2 (08:57→19:58)
[2024-11-16] MEDS: ELIQUIS 5 MG PO ×2 (08:57→19:58)
[2024-11-16] MEDS: IMDUR (EXTENDED RELEASE) 30 MG PO (08:57)
[2024-11-16] MEDS: TOPROL XL 25 MG PO (08:57)
[2024-11-16] MEDS: APRESOLINE 25 MG PO ×3 (08:58→21:48)
[2024-11-16] MEDS: PROTONIX 40 MG PO (08:58)
[2024-11-16] MEDS: LASIX 80 MG IV ×2 (08:59→16:26)
[2024-11-16] MEDS: ANTIFUNGAL CLEAR 1 APPLIC TOPICAL ×2 (09:00→19:59)
[2024-11-16] MEDS: HYDROPHOR 1 APPLIC TOPICAL (09:00)
[2024-11-16] MEDS: NOVOLOG FLEXPEN 6 UNITS SC ×3 (09:09→17:02)
--- NOTE | 2024-11-16 09:09 | W.PN.HOSP.TC ---
Today's Communication/Plan
-
IV diuresis. Hemodialysis discussions.
Assessment / Plan
Assessment / Plan
Physical exam:
General: Acutely and chronically ill
HEENT: Normocephalic, Atraumatic and Moist Mucous Membranes
Respiratory: Clear to Auscultation; Negative Wheezes, Rales or Rhonchi
Cardiac: Irregular rate and rhythm and S1/S2
GI: Soft, Nontender and Nondistended
Musculoskeletal: No Clubbing, No Cyanosis. Bilateral lower extremities edema
Neuro: Awake, Alert and Oriented, generalized weakness
Skin: Sacral and heel ulcers.
Psych: Calm
A/P:
Acute on Chronic HFrEF:
IV diuretics, Lasix 80 mg twice a day
Status post right heart catheter on 11/14--> R heart cath 11/14/2024 at 80.4 kg: RA 20, PA 85/32. Assume PCWP close to PAD of 32 mmHg.
Per cardiology aiming for a dry weight of about 75 kg or less
Continue Juan catheter
s/p IV Diuril last week
Requires intensive monitoring
BNP upon admission more than 27,000
Monitor strict I/O
Monitor daily weight
Monitor renal function and electrolytes
Reviewed latest echocardiogram on our system--> EF 35 to 40% on 10/03
Continue guideline-directed medical therapy for heart failure (GDMT)--> B-Blockers, hydralazine and nitrates and at times on hold due to hypotension. Rest of GDMT limited by renal function and hypotension including Gianluca Inh/ARB/ARNI, MRA, SGLT-i.
Fluid restriction
Salt restriction
Heart failure education
Follow up clinical response
Cardiology consult appreciated
Discussed with son over the phone today on 11/15
Acute Kidney Injury on CKD IV, suspect cardiorenal syndrome
-Today's creatinine 3.7
-Peak creatinine 4.7 during this hospital stay (last creatinine prior to admission 2.6 on 10/07)
-Nephrology discussed again with patient today on 11/16 the pressing issue of requiring hemodialysis one way or another
-Consult Nephrology appreciated
-renal ultrasound--> no hydronephrosis and normal kidney appearance
-Monitor bladder scans
-On IV diuresis now.
-If not improvement as above might need to consider HD
Metabolic Acidosis
-Likely related to renal failure
-Bicarb improving from 14 up to 20 today
Persistent A-Fib:
-Continue Eliquis for anticoagulation
-Continue metoprolol for rate control
ASCVD
-Continue Lipitor
-Continue Isosorbide Mononitrate
Essential Hypertension
-Continue hydralazine and metoprolol with hold parameters
Diabetes Mellitus, Type II - Uncontrolled
-HgbA1c 10.8 in Sep 2024
-On Lantus 14 units daily and NovoLog 6 units ac
-Monitor sugars and continue coverage insulin
Anemia of Chronic Disease
-Hgb stable
Thrombocytopenia
-Continue to monitor closely
Anxiety/Depression
-Continue buspirone and mirtazapine
GERD
-Continue Protonix
Other medical problems:
Left lower extremity negative Doppler
Elevated troponin due to non myocardial ischemic injury.
Pancytopenia.
Stage IV left ischial pressure injury, present on admission
Stage III sacral pressure injury, POA
DVT proph: Eliquis
Code Status: DNR
Total time spent on today's encounter was 52 minutes which included time spent in counseling the patient/family regarding diagnosis and treatment plan as listed above, goals of care, and symptom management. Case was discussed with nursing staff,
specialists, and care coordinators/case management. All labs and imaging personally reviewed by me. Remainder the time spent in detailed review of previous records, lab data, imaging, and other medical provider documentation.
Anticipated Discharge: > 48 hours
Subjective/Interval History
-
Date of Service: November 16, 2024
No worsening shortness of breath. Still edematous although somewhat improved. No chest pain. Afebrile
Objective Data
-
Labs:
Laboratory Results
11/16/24
06:22
WBC 4.1 L
Hgb 9.7 L
Hct 30.5 L
Plt Count 92 L
Sodium 141
Potassium 3.5
Chloride 99
Carbon Dioxide 35 H
BUN 131 H*
Creatinine 3.7 H
Glucose 94
Calcium 8.9
Vital Signs:
Vital Signs
Temp Pulse Resp BP Pulse Ox
97.7 F 64 17 129/48 97
11/16/24 07:10 11/16/24 07:10 11/16/24 07:10 11/16/24 07:10 11/16/24 07:10
I&O
11/15/24 11/16/24 11/17/24
06:59 06:59 06:59
Intake Total 840 / 840 840 / 840
Output Total 2150 / 2150 1250 / 1250
Balance -1310 / -1310 -410 / -410
[2024-11-16 09:10] VITALS: BP 136/56; PULSE 61; O2SAT 97
--- NOTE | 2024-11-16 09:18 | W.PN.CD ---
Today's Communication / Plan
-
IV diuresis to continue, continues to be high risk
Goal weight 75kg
Some HFpEF patients will need more slow diuresis but the goal weight is 75 kg and we should see improvement in BUN/Cr with time
Later might be able to add more GDMT if cardiorenal state improves
Impression / Plan
-
Background: 74 y/o female with CHB s/p PPM, persistent atrial fibrillation, CAD s/p CABG and ICMO admitted with decompensated HFrEF with ANDI, found to have severe decubitus ulcers.
HFrEF, acute on chronic
- R heart cath 11/14/2024 at 80.4 kg: RA 20, PA 85/32. Assume PCWP close to PAD of 32 mmHg
- Admit weight 88 kg but weight in Sep 2024 was 78.7 kg. She was 75kg one month ago.
- High risk situation with cardiorenal syndrome, and high risk for HD initiation.
- Weight trending down, BUN and creatinine are markedly elevated but last few days are stable-anna at 131/3.7 (11/16/2024). Recent best Cr 1.5-1.7 and BUN more normal
- Some HFpEF patients will need more slow diuresis but the goal weight is 75 kg and we should see improvement in BUN/Cr with time
- Close monitoring of labs, telemetry, weight.
- GDMT with metoprolol succinate, isosorbide mononitrate and hydralazine as hemodynamics will permit.
- No role for ACEI/ARB/ARNi/MRA/SGLT2i given renal function.
- Continue IV diuresis.
ANDI on CKD
-Nephrology consulted.
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 Patient is aware.
-BUN and creatinine remain markedly elevated
Atrial fibrillation
-Persistent, currently in atrial fibrillation.
-Rate control with metoprolol.
-CHADS2-Vasc = 4 (CHF, Age x1, vascular disease, female gender).
-Therapeutic anticoagulation with apixaban
Chronic Ischemic cardiomyopathy, LVEF = EF 35-40% with mild AI, moderate TR (TTE, 10/03/2024).
Chronic CAD, prior CABG (TRAORE to LAD, SVG to OM, SVG to RPDA).
Chronic complete Heart Block/Pacemaker
Occluded right subclavian vein
Subjective/Interval History:
Weight gradually falling
DATA:
Right heart cath 11/14/2024:
CONCLUSION:
1. Right axillary/subclavian vein stenosis that will not permit passage of a 5 Amharic balloon wedge catheter.
2. Assuming that PAD = PCWP, severely elevated filling pressures (PAD = 32 mmHg).
3. Severe precapillary and postcapillary pulmonary hypertension (PA mean = 49 mmHg, PAD/PCWP = 32 mmHg, cardiac output = 3.17 L/min, PVR = 5.36 Rosario units).
4. Mixed picture, likely at least mildly impaired cardiac function (cardiac index = 1.65 L/min/m�, AVO2 difference <5.5 volume%).
RECOMMENDATIONS:
1. Expectant management after right heart catheterization via right antecubital approach.
2. Continue diuresis.
3. Consider pulmonary vasodilator therapy given precapillary pulmonary hypertension with elevated PVR.
TTE, 10/03/2024:
CONCLUSIONS
Normal LV size with moderately reduced systolic function. LVEF 35-40%.
Akinesis of the mid to distal septal wall and apex.
Right ventricle is moderately dilated with mildly reduced systolic function.
Mild mitral regurgitation
Mild to moderate aortic regurgitation.
Moderate tricuspid regurgitation. Estimated PASP 71 mmHg.
Compared to prior echocardiogram on 05/12/2023, there is no significant change.
CT Pelvis, 11/07/2024:
IMPRESSION:
1. No findings at CT highly suspicious for osteomyelitis. There is chronic sacrococcygeal subluxation. Unchanged diffuse abnormally increased osseous sclerosis.
2. Small volume of ascites. Anasarca.
3. Moderate parastomal hernia. Small volume of ascites within the hernia.
4. Juan catheter in position. Mild diffuse urinary bladder wall thickening.
Physical Exam
Vital Signs/Labs
Vital Signs
Temp Pulse Resp BP Pulse Ox
97.7 F 61 17 136/56 97
11/16/24 07:10 11/16/24 08:57 11/16/24 07:10 11/16/24 08:57 11/16/24 07:10
11/15/24 11/16/24 11/17/24
06:59 06:59 06:59
Actual Weight 79.605 kg 79.288 kg
11/16/24 06:22
11/16/24 06:22
PT 19.5 Sec (11.4-14.6) H 11/14/24 05:38
INR 1.62 11/14/24 05:38
Magnesium 2.2 mg/dl (1.6-2.3) 11/11/24 08:12
11/02/24
13:05
Zgh-R-Ehkxlmjzlll Pept > [id number]
Physical Exam
Constitutional: No acute distress
EENT: Anicteric
Cardiovascular: Pedal edema is absent
Respiratory: Respiratory effort normal and Lungs clear to auscul.
GI: Soft
Data Reviewed
-
Date of Service: November 16, 2024
--- NOTE | 2024-11-16 11:09 | W.PN.NEPH.PH ---
Today's Communication / Plan
-
Maintain IV diuretic
Dialysis discussion again
Assessment/Plan
-
Assessment
CKD4 (2.6)
ANDI
Metabolic acidosis
diabetes mellitus type 2 with proteinuria
Heart failure reduced ejection fraction EF 30-35%
Paroxysmal atrial fibrillation
Ileostomy
Failure to thrive
Plan
Continue diuresis,weights decreasing slightly
Follow BMP, cardiorenal syndrome and plan
Creatinine at 3.7 but BUN up to 131
right heart cath elevated pressures: PAD around 30 \\
will continue with IV diuretics for now but azotemia continues to worsen and weights are not appreciably decreased,
We are essentially wasting time here as the patient will need dialysis long-term as there is no way we can maintain her volume status off dialysis in the setting of her congestive heart failure
Once again spoke with patient about moving forward for dialysis> I informed her that we need to make a decision by tomorrow that she will either have to pursue dialysis or hospice. She does not appear to be inclined to pursue hospice but I needed to
press the urgency now for proceeding forth with dialysis as she has been here for almost 2 weeks and our current therapies have not been efficacious
-
-
Date of Service: November 16, 2024
CC / HPI / ROS
-
Chief Complaint:
Acute kidney injury
History of Present Illness:
Creatinine up to 3.5
Potassium 3.8
BUN 13
Hemodynamically stable
improved UOP with jalloh
remains on high dose lasix IV
high risk situation
Review of Systems:
on RA, no resting sob or cp
no n/v
Weight down
Nonoliguric
Labs
-
Labs:
WBC 4.1 10^3/uL (4.8-10.8) L 11/16/24 06:22
RBC 3.26 10^6/uL (4.20-5.40) L 11/16/24 06:22
Hgb 9.7 g/dL (12.0-16.0) L 11/16/24 06:22
Hct 30.5 % (37.0-47.0) L 11/16/24 06:22
Plt Count 92 10^3/uL (130-400) L 11/16/24 06:22
Sodium 141 mmol/L (135-145) 11/16/24 06:22
Potassium 3.5 mmol/L (3.5-5.1) 11/16/24 06:22
Chloride 99 mmol/L (98-107) 11/16/24 06:22
Carbon Dioxide 35 mmol/L (22-30) H 11/16/24 06:22
BUN 131 mg/dl (7-17) H* 11/16/24 06:22
Creatinine 3.7 mg/dL (0.6-1.0) H 11/16/24 06:22
eGFR 12.45 11/16/24 06:22
Glucose 94 mg/dl (70-99) 11/16/24 06:22
Calcium 8.9 mg/dl (8.4-10.2) 11/16/24 06:22
Alo-Z-Wblhvebhoqi Pept > 00110 pg/ml 11/02/24 13:05
Albumin 3.3 g/dl (3.5-5.0) L 11/02/24 10:47
Physical Exam
-
Vital Signs:
Vital Signs
Temp Pulse Resp BP Pulse Ox
97.7 F 61 17 136/56 97
11/16/24 07:10 11/16/24 08:57 11/16/24 07:10 11/16/24 08:57 11/16/24 07:10
Cardiovascular:: Regular rate and rhythm
Respiratory:: Bilateral: Coarse
Lung Excursion:: Normal
Abdomen:: Nontender and Soft
Bowel Sounds:: Normal
Extremity Edema:: +2: Bilateral:
[2024-11-16 12:53] LABS: Glucose - Point of Care 263 mg/dl (70-99)
[2024-11-16] MEDS: NOVOLOG FLEXPEN-MODERATE RESISTANCE 5 UNITS SC (12:58)
[2024-11-16 15:06] VITALS: BP 119/46
[2024-11-16 16:34] LABS: Glucose - Point of Care 191 mg/dl (70-99)
[2024-11-16] MEDS: NOVOLOG FLEXPEN-MODERATE RESISTANCE 1 UNITS SC (17:03)
[2024-11-16 21:31] LABS: Glucose - Point of Care 188 mg/dl (70-99)
[2024-11-16] MEDS: REMERON 7.5 MG PO (21:47)
[2024-11-16] MEDS: LIPITOR 40 MG PO (21:47)
[2024-11-16] MEDS: LANTUS 0.14 UNITS SC (21:47)
[2024-11-16 23:49] VITALS: BP 139/53
[2024-11-17 06:00] VITALS: BMI 26.9
[2024-11-17 07:30] VITALS: BP 125/48
[2024-11-17 07:33] LABS: % Basophils 0.5 % (0-2); % Eosinophils 3.3 % (0-6); % Immature Granulocytes 0.5 % (0-0.5); % Monocytes 9.9 % (1.7-9.3); % Neutrophils 71.8 % (42.2-75.2); Absolute Eosinophils 0.1 10^3/uL (0-0.7); Absolute Lymphocytes 0.6 10^3/uL (1.2-3.4); Absolute Monocytes 0.4 10^3/uL (0.1-0.6); Absolute Neutrophils 2.8 10^3/uL (1.4-6.5); Hematocrit 29.6 % (37.0-47.0); Hemoglobin 9.2 g/dL (12.0-16.0); Mean Corp Hgb Conc. 31.1 g/dL (33.0-37.0); Mean Corpuscular Hgb 29.1 pg (27.0-31.0); Mean Corpuscular Volume 93.7 fL (81.0-99.0); Mean Platelet Volume 10.4 fL (7.4-10.4); Nucleated Red Blood Cells % 0 %; Platelet Count 102 10^3/uL (130-400); Red Blood Cell Count 3.16 10^6/uL (4.20-5.40); Red Cell Dist. Width 15.8 % (11.5-14.5); White Blood Cell Count 3.9 10^3/uL (4.8-10.8)
[2024-11-17 07:41] LABS: Calcium 8.9 mg/dl (8.4-10.2); Carbon Dioxide 33 mmol/L (22-30); Chloride 99 mmol/L (98-107); Estimated Creatinine Clearance 13 ml/min; Glucose 118 mg/dl (70-99); Potassium 3.7 mmol/L (3.5-5.1); Sodium 140 mmol/L (135-145); eGFR 12.45
[2024-11-17 08:08] LABS: Blood Urea Nitrogen 127 mg/dl (7-17)
[2024-11-17 08:11] LABS: Glucose - Point of Care 138 mg/dl (70-99)
[2024-11-17] MEDS: VITAMIN B-12 1000 MCG PO (08:12)
[2024-11-17] MEDS: SODIUM BICARBONATE 650 MG PO ×2 (08:12→19:49)
[2024-11-17] MEDS: IMDUR (EXTENDED RELEASE) 30 MG PO (08:12)
[2024-11-17] MEDS: BUSPAR 5 MG PO ×2 (08:12→19:49)
[2024-11-17] MEDS: PROTONIX 40 MG PO (08:12)
[2024-11-17] MEDS: ELIQUIS 5 MG PO ×2 (08:12→19:49)
[2024-11-17] MEDS: NOVOLOG FLEXPEN-MODERATE RESISTANCE SC (08:12)
[2024-11-17] MEDS: TOPROL XL 25 MG PO (08:13)
[2024-11-17] MEDS: LASIX 80 MG IV ×2 (08:14→16:34)
[2024-11-17] MEDS: HYDROPHOR 1 APPLIC TOPICAL (08:15)
[2024-11-17] MEDS: NOVOLOG FLEXPEN 6 UNITS SC ×3 (08:15→16:57)
[2024-11-17] MEDS: ANTIFUNGAL CLEAR 1 APPLIC TOPICAL ×2 (08:15→19:49)
[2024-11-17] MEDS: APRESOLINE 25 MG PO ×3 (08:15→22:27)
--- NOTE | 2024-11-17 08:37 | W.PN.HOSP.TC ---
Today's Communication/Plan
-
Hemodialysis discussions
Assessment / Plan
Assessment / Plan
Physical exam:
General: Acutely and chronically ill
HEENT: Normocephalic, Atraumatic and Moist Mucous Membranes
Respiratory: Clear to Auscultation; Negative Wheezes, Rales or Rhonchi
Cardiac: Irregular rate and rhythm and S1/S2
GI: Soft, Nontender and Nondistended
Musculoskeletal: No Clubbing, No Cyanosis. Bilateral lower extremities edema
Neuro: Awake, Alert and Oriented, generalized weakness
Skin: Sacral and heel ulcers.
Psych: Calm
A/P:
Acute on Chronic HFrEF:
IV diuretics, Lasix 80 mg twice a day
Status post right heart catheter on 11/14--> R heart cath 11/14/2024 at 80.4 kg: RA 20, PA 85/32. Assume PCWP close to PAD of 32 mmHg.
Per cardiology aiming for a dry weight of about 75 kg or less
Continue Juan catheter
s/p IV Diuril last week
Requires intensive monitoring
BNP upon admission more than 27,000
Monitor strict I/O
Monitor daily weight
Monitor renal function and electrolytes
Reviewed latest echocardiogram on our system--> EF 35 to 40% on 10/03
Continue guideline-directed medical therapy for heart failure (GDMT)--> B-Blockers, hydralazine and nitrates and at times on hold due to hypotension. Rest of GDMT limited by renal function and hypotension including Gianluca Inh/ARB/ARNI, MRA, SGLT-i.
Fluid restriction
Salt restriction
Heart failure education
Follow up clinical response
Cardiology consult appreciated
Discussed with son over the phone today on 11/15
Acute Kidney Injury on CKD IV, suspect cardiorenal syndrome
-Today's creatinine 3.7
-Peak creatinine 4.7 during this hospital stay (last creatinine prior to admission 2.6 on 10/07)
-Nephrology discussed again with patient today on 11/16 the pressing issue of requiring hemodialysis one way or another
-Consult Nephrology appreciated
-renal ultrasound--> no hydronephrosis and normal kidney appearance
-Monitor bladder scans
-On IV diuresis now.
-If not improvement as above might need to consider HD
-She expressed frustration 'hearing different approaches requiring hemodialysis or not'. I reiterated today very clearly that I do agree with nephrology approach that she needs hemodialysis. She expresses concerns about the holidays and getting
together with family if she gets HD and I reassured her that this could happen after all arrangements have been set but needs to be prioritize her health first.
Metabolic Acidosis
-Likely related to renal failure
-Bicarb improving from 14 up to 20 today
Persistent A-Fib:
-Continue Eliquis for anticoagulation
-Continue metoprolol for rate control
ASCVD
-Continue Lipitor
-Continue Isosorbide Mononitrate
Essential Hypertension
-Continue hydralazine and metoprolol with hold parameters
Diabetes Mellitus, Type II - Uncontrolled
-HgbA1c 10.8 in Sep 2024
-On Lantus 14 units daily and NovoLog 6 units ac
-Monitor sugars and continue coverage insulin
Anemia of Chronic Disease
-Hgb stable
Thrombocytopenia
-Continue to monitor closely
Anxiety/Depression
-Continue buspirone and mirtazapine
GERD
-Continue Protonix
Other medical problems:
Left lower extremity negative Doppler
Elevated troponin due to non myocardial ischemic injury.
Pancytopenia.
Stage IV left ischial pressure injury, present on admission
Stage III sacral pressure injury, POA
DVT proph: Eliquis
Code Status: DNR
Total time spent on today's encounter was 52 minutes which included time spent in counseling the patient/family regarding diagnosis and treatment plan as listed above, goals of care, and symptom management. Case was discussed with nursing staff,
specialists, and care coordinators/case management. All labs and imaging personally reviewed by me. Remainder the time spent in detailed review of previous records, lab data, imaging, and other medical provider documentation.
Anticipated Discharge: > 48 hours
Subjective/Interval History
-
Date of Service: November 17, 2024
Patient denies worsening shortness of breath or chest pain. She expressed frustration 'hearing different approaches requiring hemodialysis or not'. I reiterated today very clearly that I do agree with nephrology approach that she needs
hemodialysis. She expresses concerns about the holidays and getting together with family if she gets HD and I reassured her that this could happen after all arrangements have been set but needs to be prioritize her health first.
Objective Data
-
Labs:
Laboratory Results
11/17/24
06:40
WBC 3.9 L
Hgb 9.2 L
Hct 29.6 L
Plt Count 102 L
Sodium 140
Potassium 3.7
Chloride 99
Carbon Dioxide 33 H
BUN 127 H*
Creatinine 3.7 H
Glucose 118 H
Calcium 8.9
Vital Signs:
Vital Signs
Temp Pulse Resp BP Pulse Ox
97.4 F 61 16 125/48 100
11/17/24 07:30 11/17/24 07:30 11/17/24 07:30 11/17/24 07:30 11/17/24 07:30
I&O
11/16/24 11/17/24 11/18/24
06:59 06:59 06:59
Intake Total 840 / 840 1024 / 1024
Output Total 1250 / 1250 2150 / 2150
Balance -410 / -410 -1126 / -1126
--- NOTE | 2024-11-17 11:08 | W.PN.NEPH.PH ---
Today's Communication / Plan
-
observe on IV diuretics
Assessment/Plan
-
Assessment
CKD4 (2.6)
ANDI
Metabolic acidosis
diabetes mellitus type 2 with proteinuria
Heart failure reduced ejection fraction EF 30-35%
Paroxysmal atrial fibrillation
Ileostomy
Failure to thrive
Plan
Continue diuresis,weights decreasing slightly
Follow BMP, cardiorenal syndrome and plan
Creatinine at 3.7 but BUN up to 127
Urine output 1750 cc
right heart cath elevated pressures: PAD around 30
will continue with IV diuretics for now but azotemia continues to worsen and weights are not appreciably decreased,
We are essentially wasting time here as the patient will need dialysis long-term as there is no way we can maintain her volume status off dialysis in the setting of her congestive heart failure
Once again spoke with patient about moving forward for dialysis> I informed her that we need to make a decision and that she will either have to pursue dialysis or hospice. She does not appear to be inclined to pursue hospice but I needed to press
the urgency now for proceeding forth with dialysis as she has been here for almost 2 weeks and our current therapies have not been efficacious
She started crying and then told me that her sons getting conflicting information about her kidney numbers which I informed her is not true. Her numbers have been consistently high and are not improving and she remains volume overloaded on
high-dose IV diuretics. She then told me she wanted to wait till after her granddaughters birthday in November before making a decision
I am at a loss how to proceed forward at this point
-
-
Date of Service: November 17, 2024
CC / HPI / ROS
-
Chief Complaint:
Acute kidney injury
History of Present Illness:
Creatinine up to 3.7
Potassium 3.7
BUN 127
Hemodynamically stable
improved UOP with jalloh
remains on high dose lasix IV 80mg BID
high risk situation
Review of Systems:
on RA, no resting sob or cp
no n/v
Weight stable
Nonoliguric
Labs
-
Labs:
WBC 3.9 10^3/uL (4.8-10.8) L 11/17/24 06:40
RBC 3.16 10^6/uL (4.20-5.40) L 11/17/24 06:40
Hgb 9.2 g/dL (12.0-16.0) L 11/17/24 06:40
Hct 29.6 % (37.0-47.0) L 11/17/24 06:40
Plt Count 102 10^3/uL (130-400) L 11/17/24 06:40
Sodium 140 mmol/L (135-145) 11/17/24 06:40
Potassium 3.7 mmol/L (3.5-5.1) 11/17/24 06:40
Chloride 99 mmol/L (98-107) 11/17/24 06:40
Carbon Dioxide 33 mmol/L (22-30) H 11/17/24 06:40
BUN 127 mg/dl (7-17) H* 11/17/24 06:40
Creatinine 3.7 mg/dL (0.6-1.0) H 11/17/24 06:40
eGFR 12.45 11/17/24 06:40
Glucose 118 mg/dl (70-99) H 11/17/24 06:40
Calcium 8.9 mg/dl (8.4-10.2) 11/17/24 06:40
Qob-F-Cceyfcuaicr Pept > 96567 pg/ml 11/02/24 13:05
Albumin 3.3 g/dl (3.5-5.0) L 11/02/24 10:47
Physical Exam
-
Vital Signs:
Vital Signs
Temp Pulse Resp BP Pulse Ox
97.4 F 61 16 125/48 100
12/19/24 07:30 11/17/24 07:30 11/17/24 07:30 11/17/24 07:30 11/17/24 07:30
Cardiovascular:: Regular rate and rhythm
Respiratory:: Bilateral: Coarse
Lung Excursion:: Normal
Abdomen:: Nontender and Soft
Bowel Sounds:: Normal
Extremity Edema:: +2: Bilateral:
Jalloh Catheter: No
[2024-11-17 12:16] LABS: Glucose - Point of Care 208 mg/dl (70-99)
[2024-11-17] MEDS: NOVOLOG FLEXPEN-MODERATE RESISTANCE 3 UNITS SC (14:12)
--- NOTE | 2024-11-17 14:42 | WOUNDNOTE ---
[facility] RN note: Spoke with DAO Burns who recently changed patient's dressings. Katy stated L ischial and sacral wound look smaller than last couple week wound photos. Patient has an air chair cushion and air overlay mattress. Will follow as
needed.
[2024-11-17 15:15] VITALS: BP 119/53
[2024-11-17 16:51] LABS: Glucose - Point of Care 182 mg/dl (70-99)
[2024-11-17] MEDS: NOVOLOG FLEXPEN-MODERATE RESISTANCE 1 UNITS SC (16:57)
[2024-11-17 21:31] LABS: Glucose - Point of Care 172 mg/dl (70-99)
[2024-11-17] MEDS: LANTUS 0.14 UNITS SC (22:24)
[2024-11-17] MEDS: LIPITOR 40 MG PO (22:24)
[2024-11-17] MEDS: REMERON 7.5 MG PO (22:24)
[2024-11-17 23:47] VITALS: BP 108/45
[2024-11-18 01:25] VITALS: BP 107/44
[2024-11-18 06:00] VITALS: BMI 26.7
[2024-11-18 06:28] LABS: Hematocrit 31.8 % (37.0-47.0); Hemoglobin 9.9 g/dL (12.0-16.0); Mean Corp Hgb Conc. 31.1 g/dL (33.0-37.0); Mean Corpuscular Hgb 29.4 pg (27.0-31.0); Mean Corpuscular Volume 94.4 fL (81.0-99.0); Mean Platelet Volume 10.3 fL (7.4-10.4); Platelet Count 124 10^3/uL (130-400); Red Blood Cell Count 3.37 10^6/uL (4.20-5.40); Red Cell Dist. Width 15.6 % (11.5-14.5); White Blood Cell Count 4.8 10^3/uL (4.8-10.8)
[2024-11-18 07:04] LABS: Carbon Dioxide 33 mmol/L (22-30); Chloride 97 mmol/L (98-107); Estimated Creatinine Clearance 14 ml/min; Glucose 107 mg/dl (70-99); Potassium 3.8 mmol/L (3.5-5.1); Sodium 141 mmol/L (135-145); eGFR 13.31
[2024-11-18 07:14] LABS: Blood Urea Nitrogen 133 mg/dl (7-17)
--- NOTE | 2024-11-18 07:31 | W.PN.CD ---
Today's Communication / Plan
-
Continue IV diuresis.
She is approaching previous dry weight.
Impression / Plan
-
Background: 74 y/o female with CHB s/p PPM, persistent atrial fibrillation, CAD s/p CABG and [facility] admitted with decompensated HFrEF with ANDI, found to have severe decubitus ulcers.
#HFrEF, acute on chronic
-R heart cath 11/14/2024 at 80.4 kg: RA 20, PA 85/32. Assume PCWP close to PAD of 32 mmHg.
-Admit weight 88 kg but weight in Sep 2024 was 78.7 kg. She was 75 kg one month ago.
-High risk situation with cardiorenal syndrome, and high risk for HD initiation.
-Some HFpEF patients will need more slow diuresis but the goal weight is 75 kg and we should see improvement in BUN/Cr with time.
-Close monitoring of labs, telemetry, weight.
-GDMT with metoprolol succinate, isosorbide mononitrate and hydralazine as hemodynamics will permit.
-No role for ACEI/ARB/ARNi/MRA/SGLT2i given renal function.
-Continue IV diuresis. We are inching closer to her dry weight. When she is ~75 kg, we will change diuretics to furosemide 80 mg PO BID and monitor for at least 24-48 hours to make sure she does not require intermittent thiazide augmentation or
develop rapid decompensation.
#ANDI on CKD
-Nephrology consulted.
-High risk for progression to ESRD/D[facility] [employer]UTTER. Patient is aware.
-BUN and creatinine remain markedly elevated.
#Atrial fibrillation
-Persistent, currently in atrial fibrillation.
-Rate control with metoprolol.
-CHADS2-Vasc = 4 (CHF, Age x1, vascular disease, female gender).
-Therapeutic anticoagulation with apixaban.
#Sacral decubitus ulcers
-Acute/chronic.
-Wound management.
#Chronic Ischemic cardiomyopathy, LVEF = EF 35-40% with mild AI, moderate TR (TTE, 10/03/2024).
#Chronic CAD, prior CABG (TRAORE to LAD, SVG to OM, SVG to RPDA).
#Chronic complete Heart Block/Pacemaker
#Occluded right subclavian vein
#Deconditioning
-Chronic.
-PT/OT.
-Recommending disposition to SNF.
Subjective/Interval History:
Weight down 1.7 kg (77.819 --> 77.139).
BUN up to 133, Creatinine down to 3.5.
DATA:
Right heart cath 11/14/2024:
CONCLUSION:
1. Right axillary/subclavian vein stenosis that will not permit passage of a 5 Tamazight balloon wedge catheter.
2. Assuming that PAD = PCWP, severely elevated filling pressures (PAD = 32 mmHg).
3. Severe precapillary and postcapillary pulmonary hypertension (PA mean = 49 mmHg, PAD/PCWP = 32 mmHg, cardiac output = 3.17 L/min, PVR = 5.36 Rosario units).
4. Mixed picture, likely at least mildly impaired cardiac function (cardiac index = 1.65 L/min/m�, AVO2 difference <5.5 volume%).
RECOMMENDATIONS:
1. Expectant management after right heart catheterization via right antecubital approach.
2. Continue diuresis.
3. Consider pulmonary vasodilator therapy given precapillary pulmonary hypertension with elevated PVR.
TTE, 10/03/2024:
CONCLUSIONS
Normal LV size with moderately reduced systolic function. LVEF 35-40%.
Akinesis of the mid to distal septal wall and apex.
Right ventricle is moderately dilated with mildly reduced systolic function.
Mild mitral regurgitation
Mild to moderate aortic regurgitation.
Moderate tricuspid regurgitation. Estimated PASP 71 mmHg.
Compared to prior echocardiogram on 05/12/2023, there is no significant change.
CT Pelvis, 11/07/2024:
IMPRESSION:
1. No findings at CT highly suspicious for osteomyelitis. There is chronic sacrococcygeal subluxation. Unchanged diffuse abnormally increased osseous sclerosis.
2. Small volume of ascites. Anasarca.
3. Moderate parastomal hernia. Small volume of ascites within the hernia.
4. Juan catheter in position. Mild diffuse urinary bladder wall thickening.
Physical Exam
Vital Signs/Labs
Vital Signs
Temp Pulse Resp BP Pulse Ox
36.3 C 61 18 108/45 94
11/17/24 23:47 11/17/24 23:47 11/17/24 23:47 11/17/24 23:47 11/17/24 23:47
11/16/24 11/17/24 11/18/24
11:59 11:59 11:59
Actual Weight 79.288 kg 77.819 kg 77.139 kg
11/18/24 06:14
11/18/24 06:14
PT 19.5 Sec (11.4-14.6) H 11/14/24 05:38
INR 1.62 11/14/24 05:38
Magnesium 2.2 mg/dl (1.6-2.3) 11/11/24 08:12
11/02/24
13:05
Now-S-Ppxiducwcuc Pept > [id number]
Physical Exam
Constitutional: No acute distress and Comfortable
EENT: Anicteric and Moist mucous membranes
Cardiovascular: Rhythm & rate is regular, S1S2 is normal and Murmur/rub/gallop absent
Respiratory: Respiratory effort normal, Lungs clear to auscul., Wheeze Absent, Crackles Absent and Rhonchi Absent
GI: Soft, Distention absent, Flat, Non tender and Normal bowel sounds
Neuro/Psych: AO x 3
Data Reviewed
-
Date of Service: November 18, 2024
Medical Decision Making: Reviewed Test Results, Independent Historian Assessment and Test Interpretation
EKG: Tracing Personally Visualized and interpreted and Report Reviewed by me
Echo: Tracing Personally Visualized and interpreted and Report Reviewed by me
X-Ray/CT/US/MRI/NUC/PET: Image Personally Visualized and interpreted and Report Reviewed by me
Medical Tests (PFT, Pathology etc): Image Personally Visualized and interpreted and Report Reviewed by me
Labs: Labs Reviewed by me
Old Records: Reviewed
[2024-11-18 07:49] VITALS: BP 131/55
[2024-11-18 08:33] LABS: Glucose - Point of Care 132 mg/dl (70-99)
[2024-11-18] MEDS: LASIX 80 MG IV ×2 (08:36→15:37)
[2024-11-18] MEDS: NOVOLOG FLEXPEN-MODERATE RESISTANCE SC (08:36)
[2024-11-18] MEDS: PROTONIX 40 MG PO (08:37)
[2024-11-18] MEDS: IMDUR (EXTENDED RELEASE) 30 MG PO (08:38)
[2024-11-18] MEDS: VITAMIN B-12 1000 MCG PO (08:38)
[2024-11-18] MEDS: APRESOLINE 25 MG PO ×3 (08:38→21:28)
[2024-11-18] MEDS: BUSPAR 5 MG PO ×2 (08:38→21:29)
[2024-11-18] MEDS: ELIQUIS 5 MG PO (08:38)
[2024-11-18] MEDS: TOPROL XL 25 MG PO (08:38)
[2024-11-18] MEDS: SODIUM BICARBONATE 650 MG PO ×2 (08:38→21:21)
[2024-11-18] MEDS: ANTIFUNGAL CLEAR 1 APPLIC TOPICAL ×2 (08:40→21:22)
--- NOTE | 2024-11-18 09:04 | W.PN.HOSP.TC ---
Today's Communication/Plan
-
IV diuresis. Holding anticoagulant temporarily.
Assessment / Plan
Assessment / Plan
Physical exam:
General: Acutely and chronically ill
HEENT: Normocephalic, Atraumatic and Moist Mucous Membranes
Respiratory: Clear to Auscultation; Negative Wheezes, Rales or Rhonchi
Cardiac: Irregular rate and rhythm and S1/S2
GI: Soft, Nontender and Nondistended. Bleeding from stoma, medial side.
Musculoskeletal: No Clubbing, No Cyanosis. Bilateral lower extremities edema
Neuro: Awake, Alert and Oriented, generalized weakness
Skin: Sacral and heel ulcers.
Psych: Calm
A/P:
Acute on Chronic HFrEF:
IV diuretics, Lasix 80 mg twice a day
Status post right heart catheter on 11/14--> R heart cath 11/14/2024 at 80.4 kg: RA 20, PA 85/32. Assume PCWP close to PAD of 32 mmHg.
Per cardiology aiming for a dry weight of about 75 kg or less
Continue Juan catheter
s/p IV Diuril last week
Requires intensive monitoring
BNP upon admission more than 27,000
Monitor strict I/O
Monitor daily weight
Monitor renal function and electrolytes
Reviewed latest echocardiogram on our system--> EF 35 to 40% on 10/03
Continue guideline-directed medical therapy for heart failure (GDMT)--> B-Blockers, hydralazine and nitrates and at times on hold due to hypotension. Rest of GDMT limited by renal function and hypotension including Gianluca Inh/ARB/ARNI, MRA, SGLT-i.
Fluid restriction
Salt restriction
Heart failure education
Follow up clinical response
Cardiology consult appreciated
Discussed with son over the phone today on 11/15
Acute Kidney Injury on CKD IV, suspect cardiorenal syndrome
-Today's creatinine 3.5
-Peak creatinine 4.7 during this hospital stay (last creatinine prior to admission 2.6 on 10/07)
-Nephrology discussed again with patient today on 11/16 the pressing issue of requiring hemodialysis one way or another
-Consult Nephrology appreciated
-renal ultrasound--> no hydronephrosis and normal kidney appearance
-Monitor bladder scans
-On IV diuresis now.
-If not improvement as above might need to consider HD
-She expressed frustration 'hearing different approaches requiring hemodialysis or not'. I reiterated today very clearly that I do agree with nephrology approach that she needs hemodialysis. She expresses concerns about the holidays and getting
together with family if she gets HD and I reassured her that this could happen after all arrangements have been set but needs to be prioritize her health first.
-Today she tells me she has decided not to go for hemodialysis at least for now. She will think about it for the future.
Bleeding from ostomy:
Applied silver nitrate stick
Hold anticoagulation on Eliquis for now
Monitor hemoglobin and platelet count
Metabolic Acidosis
-Likely related to renal failure
-Bicarb improving
Persistent A-Fib:
-Continue Eliquis for anticoagulation
-Continue metoprolol for rate control
ASCVD
-Continue Lipitor
-Continue Isosorbide Mononitrate
Essential Hypertension
-Continue hydralazine and metoprolol with hold parameters
Diabetes Mellitus, Type II - Uncontrolled
-HgbA1c 10.8 in Sep 2024
-On Lantus 14 units daily and NovoLog 6 units ac
-Monitor sugars and continue coverage insulin
Anemia of Chronic Disease
-Hgb stable
Thrombocytopenia
-Continue to monitor closely
Anxiety/Depression
-Continue buspirone and mirtazapine
GERD
-Continue Protonix
Other medical problems:
Left lower extremity negative Doppler
Elevated troponin due to non myocardial ischemic injury.
Pancytopenia.
Stage IV left ischial pressure injury, present on admission
Stage III sacral pressure injury, POA
DVT proph: Eliquis
Code Status: DNR
Total time spent on today's encounter was 52 minutes which included time spent in counseling the patient/family regarding diagnosis and treatment plan as listed above, goals of care, and symptom management. Case was discussed with nursing staff,
specialists, and care coordinators/case management. All labs and imaging personally reviewed by me. Remainder the time spent in detailed review of previous records, lab data, imaging, and other medical provider documentation.
Anticipated Discharge: > 48 hours
Subjective/Interval History
-
Date of Service: November 18, 2024
Patient denies any chest pain or shortness of breath today. She had some bleeding from ostomy.
Objective Data
-
Labs:
Laboratory Results
11/18/24
06:14
WBC 4.8
Hgb 9.9 L
Hct 31.8 L
Plt Count 124 L D
Sodium 141
Potassium 3.8
Chloride 97 L
Carbon Dioxide 33 H
BUN 133 H*
Creatinine 3.5 H
Glucose 107 H
Calcium 9.0
Vital Signs:
Vital Signs
Temp Pulse Resp BP Pulse Ox
98.0 F 61 17 131/55 96
11/18/24 07:49 11/18/24 07:49 11/18/24 07:49 11/18/24 07:49 11/18/24 07:49
I&O
11/17/24 11/18/24 11/19/24
06:59 06:59 06:59
Intake Total 1024 / 1024 1140 / 1140
Output Total 2150 / 2150 300 / 300
Balance -1126 / -1126 840 / 840
[2024-11-18] MEDS: HYDROPHOR 1 APPLIC TOPICAL (09:21)
[2024-11-18] MEDS: NOVOLOG FLEXPEN 6 UNITS SC ×3 (09:41→18:04)
--- NOTE | 2024-11-18 10:28 | W.PN.NEPH.PH ---
Today's Communication / Plan
-
Continue diuretics for now patient needs to decide on dialysis or hospice
Assessment/Plan
-
Assessment
CKD4 (2.6)
ANDI
Metabolic acidosis
diabetes mellitus type 2 with proteinuria
Heart failure reduced ejection fraction EF 30-35%
Paroxysmal atrial fibrillation
Ileostomy
Failure to thrive
Plan
Continue diuresis,weights decreasing slightly
Follow BMP, cardiorenal syndrome and plan
Creatinine at 3.7 but BUN up to 127
Urine output 1750 cc
right heart cath elevated pressures: PAD around 30
will continue with IV diuretics for now but azotemia continues to worsen and weights are not appreciably decreased,
Multiple conversations and explanations provided to the patient about the need for dialysis
She has yet to agree to proceeding
She will have to make a decision by the end of the weekend otherwise she will need to be discharged with her knowing the risks of not doing dialysis or hospice
Will monitor through the weekend with current treatment plan
-
-
Date of Service: November 18, 2024
CC / HPI / ROS
-
Chief Complaint:
Acute kidney injury
History of Present Illness:
Creatinine up to 3.7
Potassium 3.7
BUN 127
Hemodynamically stable
improved UOP with jalloh
remains on high dose lasix IV 80mg BID
high risk situation
Review of Systems:
on RA, no resting sob or cp
no n/v
Weight stable
Nonoliguric
Labs
-
Labs:
WBC 4.8 10^3/uL (4.8-10.8) 11/18/24 06:14
RBC 3.37 10^6/uL (4.20-5.40) L 11/18/24 06:14
Hgb 9.9 g/dL (12.0-16.0) L 11/18/24 06:14
Hct 31.8 % (37.0-47.0) L 11/18/24 06:14
Plt Count 124 10^3/uL (130-400) L D 11/18/24 06:14
Sodium 141 mmol/L (135-145) 11/18/24 06:14
Potassium 3.8 mmol/L (3.5-5.1) 11/18/24 06:14
Chloride 97 mmol/L (98-107) L 11/18/24 06:14
Carbon Dioxide 33 mmol/L (22-30) H 11/18/24 06:14
BUN 133 mg/dl (7-17) H* 11/18/24 06:14
Creatinine 3.5 mg/dL (0.6-1.0) H 11/18/24 06:14
eGFR 13.31 11/18/24 06:14
Glucose 107 mg/dl (70-99) H 11/18/24 06:14
Calcium 9.0 mg/dl (8.4-10.2) 11/18/24 06:14
Xun-F-Ixurrderdud Pept > 18266 pg/ml 11/02/24 13:05
Albumin 3.3 g/dl (3.5-5.0) L 11/02/24 10:47
Physical Exam
-
Vital Signs:
Vital Signs
Temp Pulse Resp BP Pulse Ox
98.0 F 61 17 131/55 96
11/18/24 07:49 11/18/24 07:49 11/18/24 07:49 11/18/24 07:49 11/18/24 07:49
Cardiovascular:: Regular rate and rhythm
Respiratory:: Bilateral: Coarse
Lung Excursion:: Normal
Abdomen:: Nontender and Soft
Bowel Sounds:: Normal
Extremity Edema:: +2: Bilateral:
Jalloh Catheter: No
--- NOTE | 2024-11-18 11:47 | WOUNDNOTE ---
[facility] RN note: Patient's L ischial wound less deep. Sacral ulcer slightly smaller. Dressings changed. Stoma with bleeding from pinpoint area at [address] Bermudez who approved silver nitrate stick application. 1 stick of silver nitrate used
after applying pressure to bleeding. Bleeding stopped. Colostomy appliance changed using her Active life 1 piece pouch with an tammie seal. Some peristomal red skin noted d/t previous wafer cut too large. Treated with no sting skin prep. t/c SPD and
ordered a colostomy change kit if needed. There is 1 more Active life 1 piece pouch in her room. Patient moving self in bed. Po intake good. Reinstructed turning side to side to off load pressure on sacral/buttocks. Bariatric air chair cushion in
recliner chair. Waffle air overlay in place. Will follow as needed. Nursing to assist with routine colostomy pouch changes.
[2024-11-18 12:22] LABS: Glucose - Point of Care 177 mg/dl (70-99)
[2024-11-18] MEDS: NOVOLOG FLEXPEN-MODERATE RESISTANCE 1 UNITS SC (13:45)
[2024-11-18 15:08] VITALS: BP 113/45
[2024-11-18] MEDS: TYLENOL 650 MG PO (15:45)
--- NOTE | 2024-11-18 15:52 | CM ---
Discharge anticipated > 48 Hours; CM will continue to follow and will coordinate discharge needs when determined
[2024-11-18 16:51] LABS: Glucose - Point of Care 228 mg/dl (70-99)
[2024-11-18] MEDS: NOVOLOG FLEXPEN-MODERATE RESISTANCE 3 UNITS SC (18:04)
[2024-11-18] MEDS: LIPITOR 40 MG PO (21:20)
[2024-11-18] MEDS: LANTUS 0.14 UNITS SC (21:29)
[2024-11-18] MEDS: REMERON 7.5 MG PO (21:29)
[2024-11-18 21:42] LABS: Glucose - Point of Care 172 mg/dl (70-99)
[2024-11-19 06:00] VITALS: BMI 26.7
[2024-11-19 07:35] LABS: Glucose - Point of Care 179 mg/dl (70-99)
[2024-11-19 08:59] VITALS: BP 118/47
[2024-11-19 09:33] LABS: % Basophils 0.4 % (0-2); % Eosinophils 2.5 % (0-6); % Immature Granulocytes 0.2 % (0-0.5); % Lymphocytes 10.1 % (20.5-51.1); % Monocytes 8.9 % (1.7-9.3); % Neutrophils 77.9 % (42.2-75.2); Absolute Eosinophils 0.1 10^3/uL (0-0.7); Absolute Lymphocytes 0.5 10^3/uL (1.2-3.4); Absolute Monocytes 0.4 10^3/uL (0.1-0.6); Absolute Neutrophils 3.5 10^3/uL (1.4-6.5); Hematocrit 30.1 % (37.0-47.0); Hemoglobin 9.4 g/dL (12.0-16.0); Mean Corp Hgb Conc. 31.2 g/dL (33.0-37.0); Mean Corpuscular Hgb 29.5 pg (27.0-31.0); Mean Corpuscular Volume 94.4 fL (81.0-99.0); Mean Platelet Volume 10.8 fL (7.4-10.4); Nucleated Red Blood Cells % 0 %; Platelet Count 108 10^3/uL (130-400); Red Blood Cell Count 3.19 10^6/uL (4.20-5.40); Red Cell Dist. Width 15.4 % (11.5-14.5); White Blood Cell Count 4.5 10^3/uL (4.8-10.8)
--- NOTE | 2024-11-19 09:49 | W.PN.CD ---
Today's Communication / Plan
-
Continue IV diuresis for the time being.
Discuss [facility] vs. EOL/Hospice. She is going to think about it.
Impression / Plan
-
Background: 74 y/o female with CHB s/p PPM, persistent atrial fibrillation, CAD s/p CABG and ICMO admitted with decompensated HFrEF with ANDI, found to have severe decubitus ulcers.
#HFrEF, acute on chronic
-R heart cath 11/14/2024 at 80.4 kg: RA 20, PA 85/32. Assume PCWP close to PAD of 32 mmHg.
-Admit weight 88 kg but weight in Sep 2024 was 78.7 kg. She was 75 kg one month ago.
-High risk situation with cardiorenal syndrome, and high risk for HD initiation.
-Close monitoring of labs, telemetry, weight.
-GDMT with metoprolol succinate, isosorbide mononitrate and hydralazine as hemodynamics will permit.
-No role for ACEI/ARB/ARNi/MRA/SGLT2i given renal function.
-Continue IV diuresis. We are inching closer to her dry weight.
-When she is ~75 kg, we will change diuretics to furosemide 80 mg PO BID and monitor for at least 24-48 hours to make sure she does not require intermittent thiazide augmentation or develop rapid decompensation.
#ANDI on CKD
-Nephrology consulted.
-High risk for progression to ESRD/[facility]. Patient is aware.
-BUN remains markedly elevated (133), creatinine down to 3.5 yesterday. Azotemia continues in spite of creatinine falling. Labs pending this morning.
-Nephrology documents that the patient is approaching the need for [facility] vs. EOL/Hospice.
#Atrial fibrillation
-Persistent, currently in atrial fibrillation.
-Rate control with metoprolol.
-CHADS2-Vasc = 4 (CHF, Age x1, vascular disease, female gender).
-Therapeutic anticoagulation with apixaban.
#Sacral decubitus ulcers
-Acute/chronic.
-Wound management.
#Chronic Ischemic cardiomyopathy, LVEF = EF 35-40% with mild AI, moderate TR (TTE, 10/03/2024).
#Chronic CAD, prior CABG (TRAORE to LAD, SVG to OM, SVG to RPDA).
#Chronic complete Heart Block/Pacemaker
#Occluded right subclavian vein
#Deconditioning
-Chronic.
-PT/OT.
-Recommending disposition to SNF.
Subjective/Interval History:
Weight up 0.1 kg (essentially stable).
Nephrology feels that the patient is at a point of [facility] vs. EOL/Hospice.
Labs pending this morning.
DATA:
Right heart cath 11/14/2024:
CONCLUSION:
1. Right axillary/subclavian vein stenosis that will not permit passage of a 5 [place] balloon wedge catheter.
2. Assuming that PAD = PCWP, severely elevated filling pressures (PAD = 32 mmHg).
3. Severe precapillary and postcapillary pulmonary hypertension (PA mean = 49 mmHg, PAD/PCWP = 32 mmHg, cardiac output = 3.17 L/min, PVR = 5.36 Rosario units).
4. Mixed picture, likely at least mildly impaired cardiac function (cardiac index = 1.65 L/min/m�, AVO2 difference <5.5 volume%).
RECOMMENDATIONS:
1. Expectant management after right heart catheterization via right antecubital approach.
2. Continue diuresis.
3. Consider pulmonary vasodilator therapy given precapillary pulmonary hypertension with elevated PVR.
TTE, 10/03/2024:
CONCLUSIONS
Normal LV size with moderately reduced systolic function. LVEF 35-40%.
Akinesis of the mid to distal septal wall and apex.
Right ventricle is moderately dilated with mildly reduced systolic function.
Mild mitral regurgitation
Mild to moderate aortic regurgitation.
Moderate tricuspid regurgitation. Estimated PASP 71 mmHg.
Compared to prior echocardiogram on 05/12/2023, there is no significant change.
CT Pelvis, 11/07/2024:
IMPRESSION:
1. No findings at CT highly suspicious for osteomyelitis. There is chronic sacrococcygeal subluxation. Unchanged diffuse abnormally increased osseous sclerosis.
2. Small volume of ascites. Anasarca.
3. Moderate parastomal hernia. Small volume of ascites within the hernia.
4. Juan catheter in position. Mild diffuse urinary bladder wall thickening.
Physical Exam
Vital Signs/Labs
Vital Signs
Temp Pulse Resp BP Pulse Ox
36.6 C 61 18 118/47 95
11/19/24 08:59 11/19/24 08:59 11/19/24 08:59 11/19/24 08:59 11/19/24 08:59
11/17/24 11/18/24 11/19/24
11:59 11:59 11:59
Actual Weight 77.819 kg 77.139 kg 77.281 kg
11/19/24 09:02
PT 19.5 Sec (11.4-14.6) H 11/14/24 05:38
INR 1.62 11/14/24 05:38
Magnesium 2.2 mg/dl (1.6-2.3) 11/11/24 08:12
11/02/24
13:05
Zrd-O-Oswxfbewlws Pept > 38443
Physical Exam
Constitutional: No acute distress and Comfortable
EENT: Anicteric and Moist mucous membranes
Cardiovascular: Rhythm & rate is regular, Pedal edema is absent, JVD pressure is normal, S1S2 is normal and Murmur/rub/gallop absent
Respiratory: Respiratory effort normal, Lungs clear to auscul., Wheeze Absent, Crackles Absent and Rhonchi Absent
GI: Soft, Distention absent, Flat, Non tender and Normal bowel sounds
Neuro/Psych: AO x 3
Data Reviewed
-
Date of Service: November 19, 2024
Medical Decision Making: Reviewed Test Results, Independent Historian Assessment and Test Interpretation
EKG: Tracing Personally Visualized and interpreted and Report Reviewed by me
Echo: Report Reviewed by me
X-Ray/CT/US/MRI/NUC/PET: Image Personally Visualized and interpreted and Report Reviewed by me
Medical Tests (PFT, Pathology etc): Image Personally Visualized and interpreted and Report Reviewed by me
Labs: Labs Reviewed by me
Old Records: Reviewed
--- NOTE | 2024-11-19 09:54 | W.PN.HOSP.TC ---
Today's Communication/Plan
-
IV diuretics. HD discussions.
Assessment / Plan
Assessment / Plan
Physical exam:
General: Acutely and chronically ill
HEENT: Normocephalic, Atraumatic and Moist Mucous Membranes
Respiratory: Clear to Auscultation; Negative Wheezes, Rales or Rhonchi
Cardiac: Irregular rate and rhythm and S1/S2
GI: Soft, Nontender and Nondistended. Bleeding from stoma, medial side.
Musculoskeletal: No Clubbing, No Cyanosis. Bilateral lower extremities edema
Neuro: Awake, Alert and Oriented, generalized weakness
Skin: Sacral and heel ulcers.
Psych: Calm
A/P:
Acute on Chronic HFrEF:
IV diuretics, Lasix 80 mg twice a day
Status post right heart catheter on 11/14--> R heart cath 11/14/2024 at 80.4 kg: RA 20, PA 85/32. Assume PCWP close to PAD of 32 mmHg.
Per cardiology aiming for a dry weight of about 75 kg or less
Continue Juan catheter
s/p IV Diuril last week
Requires intensive monitoring
BNP upon admission more than 27,000
Monitor strict I/O
Monitor daily weight
Monitor renal function and electrolytes
Reviewed latest echocardiogram on our system--> EF 35 to 40% on 10/03
Continue guideline-directed medical therapy for heart failure (GDMT)--> B-Blockers, hydralazine and nitrates and at times on hold due to hypotension. Rest of GDMT limited by renal function and hypotension including Gianluca Inh/ARB/ARNI, MRA, SGLT-i.
Fluid restriction
Salt restriction
Heart failure education
Follow up clinical response
Cardiology consult appreciated
Discussed with son over the phone prior.
Acute Kidney Injury on CKD IV, suspect cardiorenal syndrome
-Today's creatinine 3.8
-Peak creatinine 4.7 during this hospital stay (last creatinine prior to admission 2.6 on 10/07)
-Nephrology discussed again with patient today on 11/16 the pressing issue of requiring hemodialysis one way or another
-Consult Nephrology appreciated
-renal ultrasound--> no hydronephrosis and normal kidney appearance
-Monitor bladder scans
-On IV diuresis now.
-If not improvement as above might need to consider HD
-Based on cardiology notes today on 11/19 it looks that they are also on board in terms of the need for HD and have discussed with patient.
-Will follow-up patient decision about hemodialysis versus hospice or other over the next few days.
Bleeding from ostomy:
Applied silver nitrate stick
Hold anticoagulation on Eliquis for now
Monitor hemoglobin and platelet count
Metabolic Acidosis
-Likely related to renal failure
-Bicarb improving
Persistent A-Fib:
-Continue Eliquis for anticoagulation
-Continue metoprolol for rate control
ASCVD
-Continue Lipitor
-Continue Isosorbide Mononitrate
Essential Hypertension
-Continue hydralazine and metoprolol with hold parameters
Diabetes Mellitus, Type II - Uncontrolled
-HgbA1c 10.8 in Sep 2024
-On Lantus 14 units daily and NovoLog 6 units ac
-Monitor sugars and continue coverage insulin
Anemia of Chronic Disease
-Hgb stable
Thrombocytopenia
-Continue to monitor closely
Anxiety/Depression
-Continue buspirone and mirtazapine
GERD
-Continue Protonix
Other medical problems:
Left lower extremity negative Doppler
Elevated troponin due to non myocardial ischemic injury.
Pancytopenia.
Stage IV left ischial pressure injury, present on admission
Stage III sacral pressure injury, POA
DVT proph: Eliquis
Code Status: DNR
Total time spent on today's encounter was 52 minutes which included time spent in counseling the patient/family regarding diagnosis and treatment plan as listed above, goals of care, and symptom management. Case was discussed with nursing staff,
specialists, and care coordinators/case management. All labs and imaging personally reviewed by me. Remainder the time spent in detailed review of previous records, lab data, imaging, and other medical provider documentation.
Anticipated Discharge: > 48 hours
Subjective/Interval History
-
Date of Service: November 19, 2024
Patient denies shortness of breath or chest pain.
Objective Data
-
Labs:
Laboratory Results
11/19/24
09:02
WBC 4.5 L
Hgb 9.4 L
Hct 30.1 L
Plt Count 108 L
Sodium Pending
Potassium Pending
Chloride Pending
Carbon Dioxide Pending
BUN Pending
Creatinine Pending
Glucose Pending
Calcium Pending
Vital Signs:
Vital Signs
Temp Pulse Resp BP Pulse Ox
98 F 61 18 118/47 95
11/19/24 08:59 11/19/24 08:59 11/19/24 08:59 11/19/24 08:59 11/19/24 08:59
I&O
11/18/24 11/19/24 11/20/24
06:59 06:59 06:59
Intake Total 1140 / 1140 1260 / 1260
Output Total 300 / 300 450 / 450
Balance 840 / 840 810 / 810
[2024-11-19] MEDS: VITAMIN B-12 1000 MCG PO (10:03)
[2024-11-19] MEDS: IMDUR (EXTENDED RELEASE) 30 MG PO (10:03)
[2024-11-19] MEDS: SODIUM BICARBONATE 650 MG PO ×2 (10:03→21:45)
[2024-11-19] MEDS: TOPROL XL 25 MG PO (10:03)
[2024-11-19] MEDS: PROTONIX 40 MG PO (10:03)
[2024-11-19] MEDS: APRESOLINE 25 MG PO ×3 (10:03→21:44)
[2024-11-19 10:04] LABS: Calcium 8.9 mg/dl (8.4-10.2); Carbon Dioxide 32 mmol/L (22-30); Chloride 97 mmol/L (98-107); Estimated Creatinine Clearance 13 ml/min; Glucose 108 mg/dl (70-99); Potassium 3.6 mmol/L (3.5-5.1); Sodium 141 mmol/L (135-145); eGFR 12.06
[2024-11-19] MEDS: BUSPAR 5 MG PO ×2 (10:04→21:45)
[2024-11-19] MEDS: ANTIFUNGAL CLEAR 1 APPLIC TOPICAL ×2 (10:04→21:47)
[2024-11-19] MEDS: LASIX 80 MG IV ×2 (10:04→16:48)
[2024-11-19] MEDS: HYDROPHOR 1 APPLIC TOPICAL (10:04)
[2024-11-19 10:23] LABS: Blood Urea Nitrogen 130 mg/dl (7-17)
[2024-11-19 12:41] LABS: Glucose - Point of Care 187 mg/dl (70-99)
[2024-11-19] MEDS: NOVOLOG FLEXPEN SC (13:18)
[2024-11-19] MEDS: NOVOLOG FLEXPEN-MODERATE RESISTANCE SC ×2 (13:18→19:02)
[2024-11-19] MEDS: NOVOLOG FLEXPEN-MODERATE RESISTANCE 1 UNITS SC (13:19)
[2024-11-19] MEDS: NOVOLOG FLEXPEN 6 UNITS SC ×2 (13:19→19:00)
[2024-11-19 16:19] VITALS: BP 119/53
[2024-11-19 18:09] LABS: Glucose - Point of Care 123 mg/dl (70-99)
[2024-11-19 21:26] LABS: Glucose - Point of Care 193 mg/dl (70-99)
[2024-11-19] MEDS: LANTUS 0.14 UNITS SC (21:43)
[2024-11-19] MEDS: REMERON 7.5 MG PO (21:45)
[2024-11-19] MEDS: LIPITOR 40 MG PO (21:45)
[2024-11-19 23:54] VITALS: BP 110/43
[2024-11-20 06:00] VITALS: BMI 26.5
[2024-11-20 07:56] LABS: Glucose - Point of Care 176 mg/dl (70-99)
--- NOTE | 2024-11-20 08:25 | W.PN.HOSP.TC ---
Today's Communication/Plan
-
IV Lasix. Hemodialysis discussions ongoing
Assessment / Plan
Assessment / Plan
Physical exam:
General: Acutely and chronically ill
HEENT: Normocephalic, Atraumatic and Moist Mucous Membranes
Respiratory: Clear to Auscultation; Negative Wheezes, Rales or Rhonchi
Cardiac: Irregular rate and rhythm and S1/S2
GI: Soft, Nontender and Nondistended. Bleeding from stoma, medial side.
Musculoskeletal: No Clubbing, No Cyanosis. Bilateral lower extremities edema
Neuro: Awake, Alert and Oriented, generalized weakness
Skin: Sacral and heel ulcers.
Psych: Calm
A/P:
Acute on Chronic HFrEF:
IV diuretics, Lasix 80 mg twice a day
Status post right heart catheter on 11/14--> R heart cath 11/14/2024 at 80.4 kg: RA 20, PA 85/32. Assume PCWP close to PAD of 32 mmHg.
Continue Juan catheter
s/p IV Diuril last week
Requires intensive monitoring
BNP upon admission more than 27,000
Monitor strict I/O
Monitor daily weight
Monitor renal function and electrolytes
Reviewed latest echocardiogram on our system--> EF 35 to 40% on 10/03
Continue guideline-directed medical therapy for heart failure (GDMT)--> B-Blockers, hydralazine and nitrates and at times on hold due to hypotension. Rest of GDMT limited by renal function and hypotension including Gianluca Inh/ARB/ARNI, MRA, SGLT-i.
Fluid restriction
Salt restriction
Heart failure education
Follow up clinical response
Cardiology consult appreciated
Discussed with son over the phone prior.
Acute Kidney Injury on CKD IV, suspect cardiorenal syndrome
-Today's creatinine 3.6
-Peak creatinine 4.7 during this hospital stay (last creatinine prior to admission 2.6 on 10/07)
-Nephrology consult appreciated
-renal ultrasound--> no hydronephrosis and normal kidney appearance
-Monitor bladder scans
-On IV diuresis now.
-If not improvement as above might need to consider HD-see below
-Cardiology and nephrology have discussed with patient as well as myself and waiting for her to make final decision of fluid by tomorrow.
-Will follow-up patient decision tomorrow about hemodialysis versus hospice vs continue medical therapy with high risk of deterioration.
Bleeding from ostomy:
Resolved
Applied silver nitrate stick
Resume anticoagulation
Monitor hemoglobin and platelet count
Metabolic Acidosis
-Likely related to renal failure
-Bicarb improving
Persistent A-Fib:
-Continue Eliquis for anticoagulation
-Continue metoprolol for rate control
ASCVD
-Continue Lipitor
-Continue Isosorbide Mononitrate
Essential Hypertension
-Continue hydralazine and metoprolol with hold parameters
Diabetes Mellitus, Type II - Uncontrolled
-HgbA1c 10.8 in Sep 2024
-On Lantus 14 units daily and NovoLog 6 units ac
-Monitor sugars and continue coverage insulin
Anemia of Chronic Disease
-Hgb stable
-Hemoglobin 9.7 today
Thrombocytopenia
-Continue to monitor closely
-Platelet count 114 today
Anxiety/Depression
-Continue buspirone and mirtazapine
GERD
-Continue Protonix
Other medical problems:
Left lower extremity negative Doppler
Elevated troponin due to non myocardial ischemic injury.
Pancytopenia.
Stage IV left ischial pressure injury, present on admission
Stage III sacral pressure injury, POA
DVT proph: Eliquis
Code Status: DNR
Anticipated Discharge: 24 - 48 hours
Subjective/Interval History
-
Date of Service: November 20, 2024
Patient denies worsening shortness of breath or chest pain. Afebrile. No further bleeding from ostomy.
Objective Data
-
Labs:
Laboratory Results
11/20/24
08:24
WBC Pending
Hgb Pending
Hct Pending
Plt Count Pending
Sodium Pending
Potassium Pending
Chloride Pending
Carbon Dioxide Pending
BUN Pending
Creatinine Pending
Glucose Pending
Calcium Pending
Vital Signs:
Vital Signs
Temp Pulse Resp BP Pulse Ox
98.2 F 61 19 110/43 94
11/19/24 23:54 11/19/24 23:54 11/19/24 23:54 11/19/24 23:54 11/19/24 23:54
I&O
11/19/24 11/20/24 11/21/24
06:59 06:59 06:59
Intake Total 1260 / 1260 1440 / 1440
Output Total 450 / 450 350 / 350
Balance 810 / 810 1090 / 1090
[2024-11-20 08:44] LABS: Hematocrit 31.4 % (37.0-47.0); Hemoglobin 9.7 g/dL (12.0-16.0); Mean Corp Hgb Conc. 30.9 g/dL (33.0-37.0); Mean Corpuscular Hgb 29.9 pg (27.0-31.0); Mean Corpuscular Volume 96.9 fL (81.0-99.0); Mean Platelet Volume 10.4 fL (7.4-10.4); Platelet Count 114 10^3/uL (130-400); Red Blood Cell Count 3.24 10^6/uL (4.20-5.40); Red Cell Dist. Width 15.3 % (11.5-14.5); White Blood Cell Count 4.3 10^3/uL (4.8-10.8)
[2024-11-20 08:46] VITALS: BP 117/46
[2024-11-20 09:08] LABS: Carbon Dioxide 34 mmol/L (22-30); Chloride 97 mmol/L (98-107); Estimated Creatinine Clearance 14 ml/min; Glucose 161 mg/dl (70-99); Sodium 140 mmol/L (135-145); eGFR 12.87
[2024-11-20 09:19] LABS: Blood Urea Nitrogen 138 mg/dl (7-17)
[2024-11-20] MEDS: TOPROL XL 25 MG PO (09:30)
[2024-11-20] MEDS: APRESOLINE 25 MG PO ×3 (09:30→21:38)
[2024-11-20] MEDS: PROTONIX 40 MG PO (09:30)
[2024-11-20] MEDS: IMDUR (EXTENDED RELEASE) 30 MG PO (09:30)
[2024-11-20] MEDS: BUSPAR 5 MG PO ×2 (09:30→21:38)
[2024-11-20] MEDS: SODIUM BICARBONATE 650 MG PO ×2 (09:30→21:38)
[2024-11-20] MEDS: VITAMIN B-12 1000 MCG PO (09:30)
[2024-11-20] MEDS: LASIX 80 MG IV ×2 (09:31→17:00)
[2024-11-20] MEDS: NOVOLOG FLEXPEN-MODERATE RESISTANCE 1 UNITS SC ×2 (09:32→13:28)
[2024-11-20] MEDS: NOVOLOG FLEXPEN 6 UNITS SC ×3 (09:32→17:34)
[2024-11-20] MEDS: ANTIFUNGAL CLEAR 1 APPLIC TOPICAL ×2 (09:42→21:41)
[2024-11-20] MEDS: HYDROPHOR 1 APPLIC TOPICAL (09:42)
[2024-11-20 12:15] LABS: Glucose - Point of Care 172 mg/dl (70-99)
[2024-11-20 12:26] VITALS: BP 110/45
--- NOTE | 2024-11-20 15:18 | W.PN.CD ---
Today's Communication / Plan
-
Continue IV diuresis
Ongoing hospice versus dialysis discussion
Impression / Plan
-
Background: 74 y/o female with CHB s/p PPM, persistent atrial fibrillation, CAD s/p CABG and ICMO admitted with decompensated HFrEF with ANDI, found to have severe decubitus ulcers.
#HFrEF, acute on chronic
-R heart cath 11/14/2024 at 80.4 kg: RA 20, PA 85/32. Assume PCWP close to PAD of 32 mmHg.
-Admit weight 88 kg but weight in Sep 2024 was 78.7 kg. She was 75 kg one month ago.
-High risk situation with cardiorenal syndrome, and high risk for HD initiation.
-Close monitoring of labs, telemetry, weight.
-GDMT with metoprolol succinate, isosorbide mononitrate and hydralazine as hemodynamics will permit.
-No role for ACEI/ARB/ARNi/MRA/SGLT2i given renal function.
-Continue IV diuresis. We are inching closer to her dry weight.
-When she is ~75 kg, we will change diuretics to furosemide 80 mg PO BID and monitor for at least 24-48 hours to make sure she does not require intermittent thiazide augmentation or develop rapid decompensation.
#ANDI on CKD
-Nephrology consulted.
-High risk for progression to ESRD/MECHANICAL SOUND TECHNICIAN. Patient is aware.
-Azotemia continues in spite of creatinine falling.
-Nephrology documents that the patient is approaching the need for MECHAN[facility] SOUND TECHNICIAN vs. EOL/Hospice.
#Atrial fibrillation
-Persistent, currently in atrial fibrillation.
-Rate control with metoprolol.
-CHADS2-Vasc = 4 (CHF, Age x1, vascular disease, female gender).
-Therapeutic anticoagulation with apixaban.
#Sacral decubitus ulcers
-Acute/chronic.
-Wound management.
#Chronic Ischemic cardiomyopathy, LVEF = EF 35-40% with mild AI, moderate TR (TTE, 10/03/2024).
#Chronic CAD, prior CABG (TRAORE to LAD, SVG to OM, SVG to RPDA).
#Chronic complete Heart Block/Pacemaker
#Occluded right subclavian vein
#Deconditioning
-Chronic.
-PT/OT.
-Recommending disposition to SNF.
Subjective/Interval History:
Says she is still deciding about hospice vs dialysis. Creatinine is 3.6 from 3.8 yesterday. BUN is 138 from 130. Weight is 76.6 kg from 77.2 kg. She received 80 of IV Lasix twice daily yesterday.
DATA:
Right heart cath 11/14/2024:
CONCLUSION:
1. Right axillary/subclavian vein stenosis that will not permit passage of a 5 [place] balloon wedge catheter.
2. Assuming that PAD = PCWP, severely elevated filling pressures (PAD = 32 mmHg).
3. Severe precapillary and postcapillary pulmonary hypertension (PA mean = 49 mmHg, PAD/PCWP = 32 mmHg, cardiac output = 3.17 L/min, PVR = 5.36 Rosario units).
4. Mixed picture, likely at least mildly impaired cardiac function (cardiac index = 1.65 L/min/m�, AVO2 difference <5.5 volume%).
RECOMMENDATIONS:
1. Expectant management after right heart catheterization via right antecubital approach.
2. Continue diuresis.
3. Consider pulmonary vasodilator therapy given precapillary pulmonary hypertension with elevated PVR.
TTE, 10/03/2024:
CONCLUSIONS
Normal LV size with moderately reduced systolic function. LVEF 35-40%.
Akinesis of the mid to distal septal wall and apex.
Right ventricle is moderately dilated with mildly reduced systolic function.
Mild mitral regurgitation
Mild to moderate aortic regurgitation.
Moderate tricuspid regurgitation. Estimated PASP 71 mmHg.
Compared to prior echocardiogram on 05/12/2023, there is no significant change.
CT Pelvis, 11/07/2024:
IMPRESSION:
1. No findings at CT highly suspicious for osteomyelitis. There is chronic sacrococcygeal subluxation. Unchanged diffuse abnormally increased osseous sclerosis.
2. Small volume of ascites. Anasarca.
3. Moderate parastomal hernia. Small volume of ascites within the hernia.
4. Juan catheter in position. Mild diffuse urinary bladder wall thickening.
Physical Exam
Vital Signs/Labs
Vital Signs
Temp Pulse Resp BP Pulse Ox
98.0 F 61 19 110/45 97
11/20/24 12:26 11/20/24 12:26 11/20/24 12:26 11/20/24 12:26 11/20/24 12:26
11/19/24 11/20/24 11/21/24
06:59 06:59 06:59
Actual Weight 77.281 kg 76.657 kg
11/20/24 08:24
11/20/24 08:24
PT 19.5 Sec (11.4-14.6) H 11/14/24 05:38
INR 1.62 11/14/24 05:38
Magnesium 2.2 mg/dl (1.6-2.3) 11/11/24 08:12
11/02/24
13:05
Ekc-T-Azggequfutr Pept > 72170
Physical Exam
Constitutional: No acute distress and Comfortable
Cardiovascular: Rhythm & rate is regular, Pedal edema present, S1S2 is normal and Murmur/rub/gallop absent
Respiratory: Respiratory effort normal and Crackles Present
Neuro/Psych: AO x 3
Data Reviewed
-
Date of Service: November 20, 2024
Medical Decision Making: Reviewed Test Results, Independent Historian Assessment, Test Interpretation and Review of Case with other Provider
EKG: Tracing Personally Visualized and interpreted
Echo: Report Reviewed by me
Labs: Labs Reviewed by me
[2024-11-20 16:08] VITALS: BP 115/46
[2024-11-20 17:33] LABS: Glucose - Point of Care 121 mg/dl (70-99)
[2024-11-20] MEDS: NOVOLOG FLEXPEN-MODERATE RESISTANCE SC (17:37)
[2024-11-20] MEDS: ELIQUIS 5 MG PO (21:38)
[2024-11-20] MEDS: LIPITOR 40 MG PO (21:38)
[2024-11-20] MEDS: REMERON 7.5 MG PO (21:38)
[2024-11-20] MEDS: LANTUS 0.14 UNITS SC (21:39)
[2024-11-20 21:46] LABS: Glucose - Point of Care 115 mg/dl (70-99)
[2024-11-20 23:20] VITALS: BP 114/41
[2024-11-21 07:14] LABS: Hematocrit 31.7 % (37.0-47.0); Hemoglobin 9.9 g/dL (12.0-16.0); Mean Corp Hgb Conc. 31.2 g/dL (33.0-37.0); Mean Corpuscular Hgb 29.3 pg (27.0-31.0); Mean Corpuscular Volume 93.8 fL (81.0-99.0); Mean Platelet Volume 10.9 fL (7.4-10.4); Platelet Count 119 10^3/uL (130-400); Red Blood Cell Count 3.38 10^6/uL (4.20-5.40); Red Cell Dist. Width 15.3 % (11.5-14.5); White Blood Cell Count 3.8 10^3/uL (4.8-10.8)
--- NOTE | 2024-11-21 07:46 | W.PN.CD ---
Today's Communication / Plan
-
IV diuresis.
Patient seems amenable to CNC OPERATOR.
Consider PO diuretics as she approaches 75 kg.
Impression / Plan
-
Background: 74 y/o female with CHB s/p PPM, persistent atrial fibrillation, CAD s/p CABG and ICMO admitted with decompensated HFrEF with ANDI, found to have severe decubitus ulcers.
#HFrEF, acute on chronic
-R heart cath 11/14/2024 at 80.4 kg: RA 20, PA 85/32. Assume PCWP close to PAD of 32 mmHg.
-Admit weight 88 kg but weight in Sep 2024 was 78.7 kg. She was 75 kg one month ago.
-High risk situation with cardiorenal syndrome, and high risk for HD initiation.
-Close monitoring of labs, telemetry, weight.
-GDMT with metoprolol succinate, isosorbide mononitrate and hydralazine as hemodynamics will permit.
-No role for ACEI/ARB/ARNi/MRA/SGLT2i given renal function.
-Continue IV diuresis. We are inching closer to her dry weight.
-When she is ~75 kg, we will change diuretics to furosemide 80 mg PO BID and monitor for at least 24-48 hours to make sure she does not require intermittent thiazide augmentation or develop rapid decompensation.
#ANDI on CKD
-Nephrology consulted.
-High risk for progression to ESRD/CNC OPERATOR. Patient is aware.
-Patient reports she is amenable to CNC OPERATOR. I will inform nephrology.
#Atrial fibrillation
-Persistent, currently in atrial fibrillation.
-Rate control with metoprolol.
-CHADS2-Vasc = 4 (CHF, Age x1, vascular disease, female gender).
-Therapeutic anticoagulation with apixaban.
#Sacral decubitus ulcers
-Acute/chronic.
-Wound management.
#Chronic Ischemic cardiomyopathy, LVEF = EF 35-40% with mild AI, moderate TR (TTE, 10/03/2024).
#Chronic CAD, prior CABG (TRAORE to LAD, SVG to OM, SVG to RPDA).
#Chronic complete Heart Block/Pacemaker
#Occluded right subclavian vein
#Deconditioning
-Chronic.
-PT/OT.
-Recommending disposition to SNF.
Subjective/Interval History:
Weight continues to fall (76.657 kg) but no measurement this morning.
Creatinine plateauing, 3.6 yesterday, 3.7 today.
She states she is amenable to CNC OPERATOR.
DATA:
Right heart cath 11/14/2024:
CONCLUSION:
1. Right axillary/subclavian vein stenosis that will not permit passage of a 5 [place] balloon wedge catheter.
2. Assuming that PAD = PCWP, severely elevated filling pressures (PAD = 32 mmHg).
3. Severe precapillary and postcapillary pulmonary hypertension (PA mean = 49 mmHg, PAD/PCWP = 32 mmHg, cardiac output = 3.17 L/min, PVR = 5.36 Rosario units).
4. Mixed picture, likely at least mildly impaired cardiac function (cardiac index = 1.65 L/min/m�, AVO2 difference <5.5 volume%).
RECOMMENDATIONS:
1. Expectant management after right heart catheterization via right antecubital approach.
2. Continue diuresis.
3. Consider pulmonary vasodilator therapy given precapillary pulmonary hypertension with elevated PVR.
TTE, 10/03/2024:
CONCLUSIONS
Normal LV size with moderately reduced systolic function. LVEF 35-40%.
Akinesis of the mid to distal septal wall and apex.
Right ventricle is moderately dilated with mildly reduced systolic function.
Mild mitral regurgitation
Mild to moderate aortic regurgitation.
Moderate tricuspid regurgitation. Estimated PASP 71 mmHg.
Compared to prior echocardiogram on 05/12/2023, there is no significant change.
CT Pelvis, 11/07/2024:
IMPRESSION:
1. No findings at CT highly suspicious for osteomyelitis. There is chronic sacrococcygeal subluxation. Unchanged diffuse abnormally increased osseous sclerosis.
2. Small volume of ascites. Anasarca.
3. Moderate parastomal hernia. Small volume of ascites within the hernia.
4. Juan catheter in position. Mild diffuse urinary bladder wall thickening.
Physical Exam
Vital Signs/Labs
Vital Signs
Temp Pulse Resp BP Pulse Ox
36.6 C 61 17 114/41 97
11/20/24 23:20 11/20/24 23:20 11/20/24 23:20 11/20/24 23:20 11/20/24 23:20
11/19/24 11/20/24 11/21/24
11:59 11:59 11:59
Actual Weight 77.281 kg 76.657 kg
11/21/24 07:00
PT 19.5 Sec (11.4-14.6) H 11/14/24 05:38
INR 1.62 11/14/24 05:38
Magnesium 2.2 mg/dl (1.6-2.3) 11/11/24 08:12
11/02/24
13:05
Gyb-T-Xvgjjbipkrs Pept > 05448
Physical Exam
Constitutional: No acute distress and Comfortable
EENT: Anicteric and Moist mucous membranes
Cardiovascular: Rhythm & rate is regular, Pedal edema is absent, JVD pressure is normal, S1S2 is normal and Murmur/rub/gallop absent
Respiratory: Respiratory effort normal, Lungs clear to auscul., Wheeze Absent, Crackles Absent and Rhonchi Absent
GI: Soft, Distention absent, Flat, Non tender and Normal bowel sounds
Neuro/Psych: AO x 3
Data Reviewed
-
Date of Service: November 21, 2024
Medical Decision Making: Reviewed Test Results, Independent Historian Assessment, Test Interpretation and Review of Case with other Provider
EKG: Tracing Personally Visualized and interpreted and Report Reviewed by me
Echo: Tracing Personally Visualized and interpreted and Report Reviewed by me
X-Ray/CT/US/MRI/NUC/PET: Image Personally Visualized and interpreted and Report Reviewed by me
Medical Tests (PFT, Pathology etc): Image Personally Visualized and interpreted, Report Reviewed by me, Discussed with Physician and Discussed with Patient
Labs: Labs Reviewed by me
[2024-11-21 07:51] VITALS: BP 120/45
[2024-11-21 08:10] LABS: Calcium 9.1 mg/dl (8.4-10.2); Carbon Dioxide 35 mmol/L (22-30); Chloride 97 mmol/L (98-107); Estimated Creatinine Clearance 13 ml/min; Glucose 136 mg/dl (70-99); Potassium 3.5 mmol/L (3.5-5.1); Sodium 141 mmol/L (135-145); eGFR 12.45
[2024-11-21 08:18] LABS: Glucose - Point of Care 131 mg/dl (70-99)
[2024-11-21] MEDS: NOVOLOG FLEXPEN-MODERATE RESISTANCE SC (08:22)
[2024-11-21 08:25] LABS: Blood Urea Nitrogen 130 mg/dl (7-17)
[2024-11-21] MEDS: VITAMIN B-12 1000 MCG PO (08:37)
[2024-11-21] MEDS: PROTONIX 40 MG PO (08:37)
[2024-11-21] MEDS: SODIUM BICARBONATE 650 MG PO (08:37)
[2024-11-21] MEDS: BUSPAR 5 MG PO ×2 (08:38→20:49)
[2024-11-21] MEDS: ELIQUIS 5 MG PO ×2 (08:38→20:49)
[2024-11-21] MEDS: APRESOLINE 25 MG PO ×3 (08:38→20:50)
[2024-11-21] MEDS: TOPROL XL 25 MG PO (08:38)
[2024-11-21] MEDS: IMDUR (EXTENDED RELEASE) 30 MG PO (08:38)
[2024-11-21] MEDS: ANTIFUNGAL CLEAR 1 APPLIC TOPICAL ×2 (08:39→20:49)
[2024-11-21] MEDS: NOVOLOG FLEXPEN 6 UNITS SC ×3 (08:39→17:54)
[2024-11-21] MEDS: HYDROPHOR 1 APPLIC TOPICAL (08:40)
[2024-11-21] MEDS: LASIX 80 MG IV ×2 (08:41→17:03)
[2024-11-21 12:18] LABS: Glucose - Point of Care 228 mg/dl (70-99)
[2024-11-21 12:45] VITALS: BMI 26.3
--- NOTE | 2024-11-21 15:01 | W.PN.HOSP.TC ---
Today's Communication/Plan
-
cont diuresis
Assessment / Plan
Assessment / Plan
74 y/o female with CHB s/p PPM, persistent atrial fibrillation, CAD s/p CABG and ICMO admitted with decompensated HFrEF with ANDI. Also found to have severe decubitus ulcers without signs of OM on CT
A/P
#Acute on chronic HFrEF
#Elevated troponin due to non myocardial ischemic injury.
#Hx of AVB s/p PPM
#CAD s/p CABG
#Inschemic CM
#Persistent Afib
Lasix, daily weight, follow electrolytes
RHC on 11/14/24 - increased PCWP - cont diuresis, ALso found R subclavian occlusion
Pending dry weight 75kg and then oral Lasix with 24h monitoring
GDMT limited by kidney function
#ANDI on CKD 4
Nephro follows
Patient is agreeable with HD if needed
Daily BMP
#Right axillary/subclavian vein stenosis
Outpatient VascSx
Will need CTA, now with advanced ANDI on CKD - high risk
Asymptomatic
#Stage IV left ischial pressure injury, present on admission
#Stage III sacral pressure injury, POA
CT without signs of OM
wound care
#Bleeding from ostomy
resolved after nitrate stick
#DM type 2 with nephropathy
Insulin SS, accuchecks, DM diet
#Anxiety/depression
#GERD
cont home meds
#mild chronic thrombocytopenia
#Chronic leukopenia
since 2019
monitor
Outpatient Hematology
DVT ppx on eliquis
Full code
I have spent at least 59min reviewing chart, test results, communication with consultants and direct patient care
Anticipated Discharge: > 48 hours
Subjective/Interval History
-
Date of Service: November 21, 2024
Objective Data
-
Labs:
Laboratory Results
11/21/24
07:00
WBC 3.8 L
Hgb 9.9 L
Hct 31.7 L
Plt Count 119 L
Sodium 141
Potassium 3.5
Chloride 97 L
Carbon Dioxide 35 H
BUN 130 H*
Creatinine 3.7 H
Glucose 136 H
Calcium 9.1
Vital Signs:
Vital Signs
Temp Pulse Resp BP Pulse Ox
98.1 F 61 16 120/45 96
11/21/24 07:51 11/21/24 08:41 11/21/24 07:51 11/21/24 08:41 11/21/24 07:51
I&O
11/20/24 11/21/24 11/22/24
06:59 06:59 06:59
Intake Total 1440 / 1440 960 / 960
Output Total 350 / 350
Balance 1090 / 1090 960 / 960
Review of Systems
-
History Source: Patient
All other systems: Reviewed and negative
Physical Exam
-
General: No Apparent Distress
HEENT: Normocephalic
Respiratory: Clear to Auscultation
GI: Soft, Nontender and Nondistended
Neuro: Awake, Alert, Oriented and AO x 3
Psych: Calm
--- NOTE | 2024-11-21 15:19 | W.PN.NEPH.PH ---
Today's Communication / Plan
-
HD tomorrow after catheter placement
Assessment/Plan
-
Assessment
CKD4 (2.6)
ANDI
Metabolic acidosis
diabetes mellitus type 2 with proteinuria
Heart failure reduced ejection fraction EF 30-35%
Paroxysmal atrial fibrillation
Ileostomy
Failure to thrive
Plan
ANDI with CKD felt to be cardiorenal
likely now approached dialysis
long discussion with pt again today
pt finally agreed to start HD understanding that she has option of stopping HD if she did not like it
consult IR for tunneled catheter
weights decreasing slightly
cont lasix for now
met alkalosis-hold po bicarb
right heart cath elevated pressures: PAD around 30 on 11/14
-
-
Date of Service: November 21, 2024
CC / HPI / ROS
-
Chief Complaint:
Acute kidney injury
History of Present Illness:
Creatinine up to 3.7-stable
Potassium 3.5
BUN 130
Hemodynamically stable
off jalloh
remains on high dose lasix IV 80mg BID
high risk situation
Review of Systems:
on RA, no resting sob or cp
no n/v
Weight stable
Labs
-
Labs:
WBC 3.8 10^3/uL (4.8-10.8) L 11/21/24 07:00
RBC 3.38 10^6/uL (4.20-5.40) L 11/21/24 07:00
Hgb 9.9 g/dL (12.0-16.0) L 11/21/24 07:00
Hct 31.7 % (37.0-47.0) L 11/21/24 07:00
Plt Count 119 10^3/uL (130-400) L 11/21/24 07:00
Sodium 141 mmol/L (135-145) 11/21/24 07:00
Potassium 3.5 mmol/L (3.5-5.1) 11/21/24 07:00
Chloride 97 mmol/L (98-107) L 11/21/24 07:00
Carbon Dioxide 35 mmol/L (22-30) H 11/21/24 07:00
BUN 130 mg/dl (7-17) H* 11/21/24 07:00
Creatinine 3.7 mg/dL (0.6-1.0) H 11/21/24 07:00
eGFR 12.45 11/21/24 07:00
Glucose 136 mg/dl (70-99) H 11/21/24 07:00
Calcium 9.1 mg/dl (8.4-10.2) 11/21/24 07:00
Ywg-S-Cucoiwoqvwn Pept > 35216 pg/ml 11/02/24 13:05
Albumin 3.3 g/dl (3.5-5.0) L 11/02/24 10:47
Physical Exam
-
Vital Signs:
Vital Signs
Temp Pulse Resp BP Pulse Ox
98.1 F 61 16 120/45 96
11/21/24 07:51 11/21/24 08:41 11/21/24 07:51 11/21/24 08:41 11/21/24 07:51
Cardiovascular:: Regular rate and rhythm
Respiratory:: Bilateral: Rales (at bases)
Lung Excursion:: Normal
Abdomen:: Nontender and Soft
Extremity Edema:: +1: Bilateral: (trace)
Jalloh Catheter: No
[2024-11-21] MEDS: NOVOLOG FLEXPEN-MODERATE RESISTANCE 3 UNITS SC ×2 (15:21→17:54)
[2024-11-21 15:51] VITALS: BP 120/46
[2024-11-21 16:27] VITALS: BP 139/47; PULSE 59; O2SAT 97
[2024-11-21 16:51] LABS: Glucose - Point of Care 277 mg/dl (70-99)
[2024-11-21 17:54] LABS: Glucose - Point of Care 237 mg/dl (70-99)
[2024-11-21] MEDS: LIPITOR 40 MG PO (20:49)
[2024-11-21] MEDS: REMERON 7.5 MG PO (20:49)
[2024-11-21 21:38] LABS: Glucose - Point of Care 136 mg/dl (70-99)
[2024-11-21] MEDS: LANTUS 0.14 UNITS SC (21:57)
[2024-11-21 23:09] VITALS: BP 100/54
[2024-11-22 06:00] VITALS: BMI 27.0
[2024-11-22 06:53] LABS: % Basophils 0.5 % (0-2); % Eosinophils 3.4 % (0-6); % Immature Granulocytes 0.5 % (0-0.5); % Monocytes 9.6 % (1.7-9.3); Absolute Eosinophils 0.1 10^3/uL (0-0.7); Absolute Lymphocytes 0.6 10^3/uL (1.2-3.4); Absolute Monocytes 0.4 10^3/uL (0.1-0.6); Absolute Neutrophils 2.9 10^3/uL (1.4-6.5); Hematocrit 27.5 % (37.0-47.0); Mean Corp Hgb Conc. 32.7 g/dL (33.0-37.0); Mean Corpuscular Volume 91.7 fL (81.0-99.0); Mean Platelet Volume 10.9 fL (7.4-10.4); Nucleated Red Blood Cells % 0 %; Platelet Count 127 10^3/uL (130-400); Red Cell Dist. Width 15.1 % (11.5-14.5); White Blood Cell Count 4.1 10^3/uL (4.8-10.8)
[2024-11-22 07:27] LABS: ALT (SGPT) 19 U/L (0-35); AST (SGOT) 28 U/L (14-36); Albumin 3.2 g/dl (3.5-5.0); Alkaline Phosphatase 111 U/L (38-126); Calcium 8.7 mg/dl (8.4-10.2); Carbon Dioxide 33 mmol/L (22-30); Chloride 96 mmol/L (98-107); Estimated Creatinine Clearance 14 ml/min; Glucose 73 mg/dl (70-99); Magnesium 1.8 mg/dl (1.6-2.3); Potassium 3.6 mmol/L (3.5-5.1); Sodium 139 mmol/L (135-145); Total Bilirubin 0.7 mg/dl (0.2-1.3); Total Protein 5.9 g/dl (6.3-8.2); eGFR 12.87
[2024-11-22 07:38] LABS: Blood Urea Nitrogen 134 mg/dl (7-17)
[2024-11-22 08:00] VITALS: BP 128/51
--- NOTE | 2024-11-22 08:34 | CM ---
CM reviewed chart- ADC>48 hours
Per chart review, plan to initiate HD
SNF bed search broaden to facilities with HD capabilities- pending
Will need to send updated HD clinicals once available
Discharge Disposition- SNF with new HD
[2024-11-22] MEDS: NOVOLOG FLEXPEN SC ×2 (08:48→15:54)
[2024-11-22 08:49] LABS: Glucose - Point of Care 125 mg/dl (70-99)
[2024-11-22] MEDS: NOVOLOG FLEXPEN-MODERATE RESISTANCE SC ×3 (08:49→17:32)
--- NOTE | 2024-11-22 10:09 | W.PN.CD ---
Today's Communication / Plan
-
Agree with HD
For now continue IV Lasix
Impression / Plan
-
Background: 74 y/o female with CHB s/p PPM, persistent atrial fibrillation, CAD s/p CABG and ICMO admitted with decompensated HFrEF with ANDI, found to have severe decubitus ulcers.
HFrEF, acute on chronic
-R heart cath 11/14/2024 at 80.4 kg: RA 20, PA 85/32. Assume PCWP close to PAD of 32 mmHg.
-Admit weight 88 kg but weight in Sep 2024 was 78.7 kg. She was 75 kg one month ago.
-High risk situation with cardiorenal syndrome, and high risk for HD initiation.
-Close monitoring of labs, telemetry, weight.
-GDMT with metoprolol succinate, isosorbide mononitrate and hydralazine as hemodynamics will permit.
-No role for ACEI/ARB/ARNi/MRA/SGLT2i given renal function.
-Continue IV diuresis. We are inching closer to her dry weight.
-Will continue furosemide 80 mg IV BID
ANDI on CKD
-Nephrology has started the process for hemodialysis
Atrial fibrillation
-Persistent, currently in atrial fibrillation.
-Rate control with metoprolol.
-CHADS2-Vasc = 4 (CHF, Age x1, vascular disease, female gender).
-Therapeutic anticoagulation with apixaban.
Sacral decubitus ulcers
-Acute/chronic.
-Wound management.
Chronic Ischemic cardiomyopathy, LVEF = EF 35-40% with mild AI, moderate TR (TTE, 10/03/2024).
Chronic CAD, prior CABG (TRAORE to LAD, SVG to OM, SVG to RPDA).
Chronic complete Heart Block/Pacemaker
Occluded right subclavian vein
Subjective/Interval History:
weight is up to 78.2
DATA:
Right heart cath 11/14/2024:
CONCLUSION:
1. Right axillary/subclavian vein stenosis that will not permit passage of a 5 [place]e balloon wedge catheter.
2. Assuming that PAD = PCWP, severely elevated filling pressures (PAD = 32 mmHg).
3. Severe precapillary and postcapillary pulmonary hypertension (PA mean = 49 mmHg, PAD/PCWP = 32 mmHg, cardiac output = 3.17 L/min, PVR = 5.36 Rosario units).
4. Mixed picture, likely at least mildly impaired cardiac function (cardiac index = 1.65 L/min/m�, AVO2 difference <5.5 volume%).
TTE, 10/03/2024:
Normal LV size with moderately reduced systolic function. LVEF 35-40%.
Akinesis of the mid to distal septal wall and apex.
Right ventricle is moderately dilated with mildly reduced systolic function.
Mild mitral regurgitation
Mild to moderate aortic regurgitation.
Moderate tricuspid regurgitation. Estimated PASP 71 mmHg.
Compared to prior echocardiogram on 05/12/2023, there is no significant change.
CT Pelvis, 11/07/2024:
1. No findings at CT highly suspicious for osteomyelitis. There is chronic sacrococcygeal subluxation. Unchanged diffuse abnormally increased osseous sclerosis.
2. Small volume of ascites. Anasarca.
3. Moderate parastomal hernia. Small volume of ascites within the hernia.
4. Juan catheter in position. Mild diffuse urinary bladder wall thickening.
Physical Exam
Vital Signs/Labs
Vital Signs
Temp Pulse Resp BP Pulse Ox
97.8 F 82 16 100/54 95
11/21/24 23:09 11/21/24 23:09 11/21/24 23:09 11/21/24 23:09 11/21/24 23:09
11/21/24 11/22/24 11/23/24
06:59 06:59 06:59
Actual Weight 78.188 kg
11/22/24 06:01
11/22/24 06:01
PT 19.5 Sec (11.4-14.6) H 11/14/24 05:38
INR 1.62 11/14/24 05:38
Magnesium 1.8 mg/dl (1.6-2.3) 11/22/24 06:01
11/02/24
13:05
Vbc-A-Bxotbpegfbx Pept > 13203
Physical Exam
Constitutional: No acute distress
EENT: Anicteric
Cardiovascular: Pedal edema is absent, Rhythm/rate is irregular and S1S2 is normal
Respiratory: Respiratory effort normal and Lungs clear to auscul.
GI: Soft and Distention absent
Neuro/Psych: Alert
Data Reviewed
-
Date of Service: November 22, 2024
--- NOTE | 2024-11-22 10:56 | W.PN.HOSP.TC ---
Today's Communication/Plan
-
Cont Lasix
Pending HD
Assessment / Plan
Assessment / Plan
74 y/o female with CHB s/p PPM, persistent atrial fibrillation, CAD s/p CABG and ICMO admitted with decompensated HFrEF with ANDI. Also found to have severe decubitus ulcers without signs of OM on CT. As per discussion with nephrology - pending
initiation of HD
A/P
#Acute on chronic HFrEF
#Elevated troponin due to non myocardial ischemic injury.
#Hx of AVB s/p PPM
#CAD s/p CABG
#Inschemic CM
#Persistent Afib
Lasix, daily weight, follow electrolytes
RHC on 11/14/24 - increased PCWP - cont diuresis, ALso found R subclavian occlusion
Pending dry weight 75kg and then oral Lasix with 24h monitoring
GDMT limited by kidney function
#ANDI on CKD 4
Nephro follows
Patient is agreeable with HD if needed
Daily BMP
#Anemia most likely 2/2 CKD
monitor CBC
#Right axillary/subclavian vein stenosis
Outpatient VascSx
Will need CTA, now with advanced ANDI on CKD - high risk
Asymptomatic
#Stage IV left ischial pressure injury, present on admission
#Stage III sacral pressure injury, POA
CT without signs of OM
wound care
#Bleeding from ostomy
resolved after nitrate stick
#DM type 2 with nephropathy
Insulin SS, accuchecks, DM diet
#Anxiety/depression
#GERD
cont home meds
#mild chronic thrombocytopenia
#Chronic leukopenia
since 2019
monitor
Outpatient Hematology
DVT ppx on eliquis
Full code
I have spent at least 59min reviewing chart, test results, communication with consultants and direct patient care
Anticipated Discharge: > 48 hours
Subjective/Interval History
-
Date of Service: November 22, 2024
Objective Data
-
Labs:
Laboratory Results
11/22/24
06:01
WBC 4.1 L
Hgb 9.0 L
Hct 27.5 L
Plt Count 127 L
Sodium 139
Potassium 3.6
Chloride 96 L
Carbon Dioxide 33 H
BUN 134 H*
Creatinine 3.6 H
Glucose 73
Calcium 8.7
Total Bilirubin 0.7
AST 28
ALT 19
Alkaline Phosphatase 111
Vital Signs:
Vital Signs
Temp Pulse Resp BP Pulse Ox
97.8 F 82 16 100/54 95
11/21/24 23:09 11/21/24 23:09 11/21/24 23:09 11/21/24 23:09 11/21/24 23:09
I&O
11/21/24 11/22/24 11/23/24
06:59 06:59 06:59
Intake Total 960 / 960 330 / 330
Output Total 150 / 150
Balance 960 / 960 180 / 180
Review of Systems
-
History Source: Patient
All other systems: Reviewed and negative
Physical Exam
-
General: No Apparent Distress
Respiratory: Clear to Auscultation
Cardiac: Regular Rhythm
GI: Ostomy
Neuro: Awake, Alert, Oriented and AO x 3
Psych: Calm
[2024-11-22 10:59] VITALS: BP 137/59; BP_SYST 63
[2024-11-22] MEDS: ANCEF 10 IV (11:21)
[2024-11-22 12:15] VITALS: BP 120/50
[2024-11-22 12:52] LABS: Glucose - Point of Care 88 mg/dl (70-99)
[2024-11-22] MEDS: ELIQUIS 5 MG PO ×2 (13:17→20:10)
[2024-11-22] MEDS: FLEXBUMIN 25% FOR HEMODIALYSIS 12.5 GRAMS IV ×2 (13:33→14:46)
[2024-11-22] MEDS: MANNITOL 25% 12.5 GRAMS IV ×2 (13:35→14:46)
[2024-11-22] MEDS: RETACRIT 3000 UNITS IV (13:36)
--- NOTE | 2024-11-22 15:02 | W.PN.NEPH.HD ---
Assessment
-
pt seen during HD
vitals stable
CVC functions well
With holiday schedule-next HD will be
change to po lasix
likely hold hydralazine if needed
Progress Note - Hemodialysis
-
Date of Service: November 22, 2024
Duration: 15 minutes and 2 hours
Potassium Bath: 3
Calcium Bath: 2.5
Opti-Dialyzer: 160
Ultrafiltration: Other (1kg)
Blood Flow: 250
Dialysate Flow: Other (400)
Heparin: no
EPO: 3000
[2024-11-22] MEDS: HEPARIN 2000 UNITS INTRACATH (15:38)
[2024-11-22 15:51] VITALS: BP 146/61
[2024-11-22 15:53] LABS: Hepatitis B Surface Antigen Negative (Negative)
[2024-11-22] MEDS: HYDROPHOR 1 APPLIC TOPICAL (15:53)
[2024-11-22] MEDS: BUSPAR PO (15:53)
[2024-11-22] MEDS: ANTIFUNGAL CLEAR 1 APPLIC TOPICAL ×2 (15:53→20:11)
[2024-11-22] MEDS: IMDUR (EXTENDED RELEASE) PO (15:53)
[2024-11-22] MEDS: APRESOLINE PO (15:56)
[2024-11-22 16:12] LABS: Hepatitis B Core Ab, Total Negative (Negative); Hepatitis C Antibody Negative (Negative)
[2024-11-22] MEDS: TOPROL XL 25 MG PO (16:22)
[2024-11-22] MEDS: PROTONIX 40 MG PO (16:23)
[2024-11-22] MEDS: APRESOLINE 25 MG PO ×2 (16:23→20:09)
[2024-11-22] MEDS: LASIX 80 MG PO (16:23)
[2024-11-22] MEDS: VITAMIN B-12 1000 MCG PO (16:23)
[2024-11-22 16:30] VITALS: BP 137/61
[2024-11-22] MEDS: LASIX IV (16:32)
[2024-11-22 17:25] LABS: Glucose - Point of Care 88 mg/dl (70-99)
[2024-11-22] MEDS: NOVOLOG FLEXPEN 3 UNITS SC (17:44)
[2024-11-22] MEDS: REMERON 7.5 MG PO (20:10)
[2024-11-22] MEDS: LIPITOR 40 MG PO (20:10)
[2024-11-22] MEDS: BUSPAR 5 MG PO (20:10)
[2024-11-22] MEDS: TYLENOL 650 MG PO (20:10)
[2024-11-22] MEDS: ROXICODONE 5 MG PO (20:10)
[2024-11-22 21:59] LABS: Glucose - Point of Care 202 mg/dl (70-99)
[2024-11-22] MEDS: LANTUS 0.14 UNITS SC (22:14)
--- NOTE | 2024-11-22 23:09 | PTCARENOTE ---
pain at new HD tunneled cath site- - pt said 07/09 and Tylenol would not be enough- physical therapist center manager ordered Roxicodone see mar- pain relieved
[2024-11-22 23:27] VITALS: BP 142/54
[2024-11-23 06:00] VITALS: BMI 26.5
[2024-11-23 06:23] LABS: % Basophils 0.5 % (0-2); % Eosinophils 2.8 % (0-6); % Immature Granulocytes 0.3 % (0-0.5); % Lymphocytes 15.3 % (20.5-51.1); % Monocytes 11.4 % (1.7-9.3); % Neutrophils 69.7 % (42.2-75.2); Absolute Eosinophils 0.1 10^3/uL (0-0.7); Absolute Lymphocytes 0.6 10^3/uL (1.2-3.4); Absolute Monocytes 0.4 10^3/uL (0.1-0.6); Absolute Neutrophils 2.7 10^3/uL (1.4-6.5); Hematocrit 29.6 % (37.0-47.0); Hemoglobin 9.3 g/dL (12.0-16.0); Mean Corp Hgb Conc. 31.4 g/dL (33.0-37.0); Mean Corpuscular Hgb 29.4 pg (27.0-31.0); Mean Corpuscular Volume 93.7 fL (81.0-99.0); Mean Platelet Volume 11.1 fL (7.4-10.4); Nucleated Red Blood Cells % 0 %; Platelet Count 114 10^3/uL (130-400); Red Blood Cell Count 3.16 10^6/uL (4.20-5.40); White Blood Cell Count 3.9 10^3/uL (4.8-10.8)
[2024-11-23 07:00] VITALS: BP 147/62
[2024-11-23 07:00] LABS: ALT (SGPT) 18 U/L (0-35); AST (SGOT) 37 U/L (14-36); Albumin 3.2 g/dl (3.5-5.0); Alkaline Phosphatase 134 U/L (38-126); Blood Urea Nitrogen 81 mg/dl (7-17); Calcium 8.7 mg/dl (8.4-10.2); Carbon Dioxide 32 mmol/L (22-30); Chloride 99 mmol/L (98-107); Estimated Creatinine Clearance 17 ml/min; Glucose 189 mg/dl (70-99); Magnesium 1.8 mg/dl (1.6-2.3); Potassium 3.8 mmol/L (3.5-5.1); Sodium 139 mmol/L (135-145); Total Bilirubin 0.5 mg/dl (0.2-1.3); Total Protein 5.9 g/dl (6.3-8.2); eGFR 16.68
[2024-11-23 07:50] LABS: Glucose - Point of Care 312 mg/dl (70-99)
--- NOTE | 2024-11-23 08:25 | W.PN.CD ---
Today's Communication / Plan
-
-Continue Lasix 80 p.o. twice a day.
Impression / Plan
-
Background: 74 y/o female with CHB s/p PPM, persistent atrial fibrillation, CAD s/p CABG and ICMO admitted with decompensated HFrEF with ANDI, found to have severe decubitus ulcers.
HFrEF, acute on chronic
-R heart cath 11/14/2024 at 80.4 kg: RA 20, PA 85/32. Assume PCWP close to PAD of 32 mmHg.
-Admit weight 88 kg but weight in Sep 2024 was 78.7 kg. She was 75 kg one month ago.
-High risk situation with cardiorenal syndrome, and high risk for HD initiation.
-Close monitoring of labs, telemetry, weight.
-GDMT with metoprolol succinate, isosorbide mononitrate and hydralazine as hemodynamics will permit.
-No role for ACEI/ARB/ARNi/MRA/SGLT2i given renal function.
-Continue IV diuresis. We are inching closer to her dry weight. Likely dry weight is 76 kg
-Will continue furosemide 80 mg PO BID - inaccurate I/Os
ANDI on CKD
-Nephrology has started the process for hemodialysis
Atrial fibrillation
-Persistent, currently in atrial fibrillation.
-Rate control with metoprolol.
-CHADS2-Vasc = 4 (CHF, Age x1, vascular disease, female gender).
-Therapeutic anticoagulation with apixaban.
Sacral decubitus ulcers
-Acute/chronic.
-Wound management.
Chronic Ischemic cardiomyopathy, LVEF = EF 35-40% with mild AI, moderate TR (TTE, 10/03/2024).
Chronic CAD, prior CABG (TRAORE to LAD, SVG to OM, SVG to RPDA).
Chronic complete Heart Block/Pacemaker
Occluded right subclavian vein
Subjective/Interval History:
weight is back to 76.6 kg.
DATA:
Right heart cath 11/14/2024:
CONCLUSION:
1. Right axillary/subclavian vein stenosis that will not permit passage of a 5 Lao balloon wedge catheter.
2. Assuming that PAD = PCWP, severely elevated filling pressures (PAD = 32 mmHg).
3. Severe precapillary and postcapillary pulmonary hypertension (PA mean = 49 mmHg, PAD/PCWP = 32 mmHg, cardiac output = 3.17 L/min, PVR = 5.36 Rosario units).
4. Mixed picture, likely at least mildly impaired cardiac function (cardiac index = 1.65 L/min/m�, AVO2 difference <5.5 volume%).
TTE, 10/03/2024:
Normal LV size with moderately reduced systolic function. LVEF 35-40%.
Akinesis of the mid to distal septal wall and apex.
Right ventricle is moderately dilated with mildly reduced systolic function.
Mild mitral regurgitation
Mild to moderate aortic regurgitation.
Moderate tricuspid regurgitation. Estimated PASP 71 mmHg.
Compared to prior echocardiogram on 05/12/2023, there is no significant change.
CT Pelvis, 11/07/2024:
1. No findings at CT highly suspicious for osteomyelitis. There is chronic sacrococcygeal subluxation. Unchanged diffuse abnormally increased osseous sclerosis.
2. Small volume of ascites. Anasarca.
3. Moderate parastomal hernia. Small volume of ascites within the hernia.
4. Juan catheter in position. Mild diffuse urinary bladder wall thickening.
Physical Exam
Vital Signs/Labs
Vital Signs
Temp Pulse Resp BP Pulse Ox
97.8 F 63 18 147/62 96
11/23/24 07:00 11/23/24 07:00 11/23/24 07:00 11/23/24 07:00 11/23/24 07:00
11/22/24 11/23/24 11/24/24
06:59 06:59 06:59
Actual Weight 78.188 kg 76.714 kg
11/23/24 05:48
11/23/24 05:48
PT 19.5 Sec (11.4-14.6) H 11/14/24 05:38
INR 1.62 11/14/24 05:38
Magnesium 1.8 mg/dl (1.6-2.3) 11/23/24 05:48
11/02/24
13:05
Qrw-P-Ykbecyuqdxn Pept > 95315
Physical Exam
Constitutional: Comfortable
EENT: Anicteric and Moist mucous membranes
Cardiovascular: Rhythm & rate is regular, Pedal edema is absent and JVD pressure is normal
Respiratory: Respiratory effort normal, Crackles Absent and Rhonchi Absent
GI: Soft and Non tender
Neuro/Psych: Alert and Oriented
Data Reviewed
-
Date of Service: November 23, 2024
Medical Decision Making: Reviewed Test Results, Test Interpretation and Review of Case with other Provider
EKG: Tracing Personally Visualized and interpreted
Echo: Report Reviewed by me
Labs: Labs Reviewed by me
Old Records: Reviewed
--- NOTE | 2024-11-23 08:50 | W.PN.ADMCERT ---
Inpatient Certification Note
-
Reason for Hospitalization: ANDI, CHF
Expected length of stay greater than two midnights?: Yes
I certify the patient meets the requirements for IP care: Yes
Post Hospital Care:
Post-hospital care is identified in collaboration with the attending/treatment team as well as the patient�s individual needs.
Post-hospital care determinations will be documented in the Case Management assessment and in subsequent notes.
[2024-11-23] MEDS: ELIQUIS 5 MG PO ×2 (09:03→21:15)
[2024-11-23] MEDS: VITAMIN B-12 1000 MCG PO (09:03)
[2024-11-23] MEDS: TOPROL XL 25 MG PO (09:03)
[2024-11-23] MEDS: PROTONIX 40 MG PO (09:03)
[2024-11-23] MEDS: LASIX 80 MG PO ×2 (09:03→16:26)
[2024-11-23] MEDS: IMDUR (EXTENDED RELEASE) 30 MG PO (09:03)
[2024-11-23] MEDS: BUSPAR 5 MG PO ×2 (09:03→21:13)
[2024-11-23] MEDS: NOVOLOG FLEXPEN SC ×2 (09:04→10:35)
[2024-11-23] MEDS: APRESOLINE 25 MG PO ×3 (09:04→21:16)
[2024-11-23] MEDS: ANTIFUNGAL CLEAR 1 APPLIC TOPICAL ×2 (09:05→21:13)
[2024-11-23] MEDS: HYDROPHOR 1 APPLIC TOPICAL (09:07)
[2024-11-23] MEDS: NOVOLOG FLEXPEN-MODERATE RESISTANCE 7 UNITS SC (10:35)
[2024-11-23] MEDS: TYLENOL 650 MG PO ×2 (10:56→16:56)
--- NOTE | 2024-11-23 11:41 | W.PN.HOSP.TC ---
Today's Communication/Plan
-
CM looking for rehab with HD
cont diuresis as per card. Stable for d/c when reach euvolemia
Assessment / Plan
Assessment / Plan
74 y/o female with CHB s/p PPM, persistent atrial fibrillation, CAD s/p CABG and ICMO admitted with decompensated HFrEF with ANDI. Also found to have severe decubitus ulcers without signs of OM on CT. Started on HD on 11/22/24.
A/P
#Acute on chronic HFrEF
#Elevated troponin due to non myocardial ischemic injury.
#Hx of AVB s/p PPM
#CAD s/p CABG
#Inschemic CM
#Persistent Afib
Lasix, daily weight, follow electrolytes
RHC on 11/14/24 - increased PCWP - cont diuresis, ALso found R subclavian occlusion
Pending dry weight 75kg and then oral Lasix with 24h monitoring
GDMT limited by kidney function
#ANDI on CKD 4 (cardiorenal)
Nephro follows
Patient is agreeable with HD if needed
Daily BMP
#Anemia most likely 2/2 CKD
monitor CBC
#Right axillary/subclavian vein stenosis
Outpatient VascSx
Will need CTA, now with advanced ANDI on CKD - high risk
Asymptomatic
#Stage IV left ischial pressure injury, present on admission
#Stage III sacral pressure injury, POA
CT without signs of OM
wound care
#Bleeding from ostomy
resolved after nitrate stick
#DM type 2 with nephropathy
Insulin SS, accuchecks, DM diet
#Anxiety/depression
#GERD
cont home meds
#pancytopenia
varois cell abnormalities at least since 2019
monitor
Hematology consult
DVT ppx on eliquis
Full code
I have spent at least 59min reviewing chart, test results, communication with consultants and direct patient care
Anticipated Discharge: 24 - 48 hours
Subjective/Interval History
-
Date of Service: November 23, 2024
Objective Data
-
Labs:
Laboratory Results
11/23/24
05:48
WBC 3.9 L
Hgb 9.3 L
Hct 29.6 L
Plt Count 114 L
Sodium 139
Potassium 3.8
Chloride 99
Carbon Dioxide 32 H
BUN 81 H
Creatinine 2.9 H
Glucose 189 H
Calcium 8.7
Total Bilirubin 0.5
AST 37 H
ALT 18
Alkaline Phosphatase 134 H
Vital Signs:
Vital Signs
Temp Pulse Resp BP Pulse Ox
97.8 F 63 18 147/62 96
11/23/24 07:00 11/23/24 09:04 11/23/24 07:00 11/23/24 09:04 11/23/24 07:00
I&O
11/22/24 11/23/24 11/24/24
06:59 06:59 06:59
Intake Total 330 / 330 240 / 240
Output Total 150 / 150 150 / 150
Balance 180 / 180 90 / 90
[2024-11-23 12:20] LABS: Glucose - Point of Care 144 mg/dl (70-99)
[2024-11-23] MEDS: NOVOLOG FLEXPEN 6 UNITS SC ×2 (12:20→16:31)
[2024-11-23] MEDS: NOVOLOG FLEXPEN-MODERATE RESISTANCE SC (12:20)
--- NOTE | 2024-11-23 15:15 | W.PN.NEPH.PH ---
Today's Communication / Plan
-
HD tomorrow
Assessment/Plan
-
Assessment
CKD4 (2.6)
ANDI
Metabolic acidosis
diabetes mellitus type 2 with proteinuria
Heart failure reduced ejection fraction EF 30-35%
Paroxysmal atrial fibrillation
Ileostomy
Failure to thrive
Plan
ANDI with CKD felt to be cardiorenal
likely now approached dialysis
HD started 11/22
for 2nd HD tomorrow
cont po lasix
need HD unit placement
-
-
Date of Service: November 23, 2024
CC / HPI / ROS
-
Chief Complaint:
Acute kidney injury
History of Present Illness:
HD initiated on 11/22
Hemodynamically stable
off jalloh
Review of Systems:
on RA, no resting sob or cp
no n/v
Weight decreasing
Labs
-
Labs:
WBC 3.9 10^3/uL (4.8-10.8) L 11/23/24 05:48
RBC 3.16 10^6/uL (4.20-5.40) L 11/23/24 05:48
Hgb 9.3 g/dL (12.0-16.0) L 11/23/24 05:48
Hct 29.6 % (37.0-47.0) L 11/23/24 05:48
Plt Count 114 10^3/uL (130-400) L 11/23/24 05:48
Sodium 139 mmol/L (135-145) 11/23/24 05:48
Potassium 3.8 mmol/L (3.5-5.1) 11/23/24 05:48
Chloride 99 mmol/L (98-107) 11/23/24 05:48
Carbon Dioxide 32 mmol/L (22-30) H 11/23/24 05:48
BUN 81 mg/dl (7-17) H 11/23/24 05:48
Creatinine 2.9 mg/dL (0.6-1.0) H 11/23/24 05:48
eGFR 16.68 11/23/24 05:48
Glucose 189 mg/dl (70-99) H 11/23/24 05:48
Calcium 8.7 mg/dl (8.4-10.2) 11/23/24 05:48
Fdy-F-Olgbqmcxuuo Pept > 30670 pg/ml 11/02/24 13:05
Albumin 3.2 g/dl (3.5-5.0) L 11/23/24 05:48
Physical Exam
-
Vital Signs:
Vital Signs
Temp Pulse Resp BP Pulse Ox
97.8 F 63 18 147/62 96
11/23/24 07:00 11/23/24 09:04 11/23/24 07:00 11/23/24 09:04 11/23/24 07:00
Cardiovascular:: Regular rate and rhythm
Respiratory:: Bilateral: CTA
Lung Excursion:: Normal
Abdomen:: Nontender and Soft
Extremity Edema:: +1: Bilateral:
Jalloh Catheter: No
[2024-11-23 16:08] VITALS: BP 116/53
[2024-11-23 16:31] LABS: Glucose - Point of Care 164 mg/dl (70-99)
[2024-11-23] MEDS: NOVOLOG FLEXPEN-MODERATE RESISTANCE 1 UNITS SC (16:31)
[2024-11-23] MEDS: REMERON 7.5 MG PO (21:15)
[2024-11-23] MEDS: LIPITOR 40 MG PO (21:16)
[2024-11-23] MEDS: LANTUS 0.14 UNITS SC (22:01)
[2024-11-23 22:04] LABS: Glucose - Point of Care 176 mg/dl (70-99)
[2024-11-23 23:00] VITALS: BP 107/44
[2024-11-24 06:00] VITALS: BMI 25.6
[2024-11-24 07:00] VITALS: BP 115/64
[2024-11-24 07:41] LABS: Glucose - Point of Care 153 mg/dl (70-99)
--- NOTE | 2024-11-24 08:28 | W.PN.CD ---
Today's Communication / Plan
-
crackles at bases
getting HD
volume control as directed by nephrology
Impression / Plan
-
Background: 74 y/o female with CHB s/p PPM, persistent atrial fibrillation, CAD s/p CABG and ICMO admitted with decompensated HFrEF with ANDI, found to have severe decubitus ulcers.
HFrEF, acute on chronic
- echo 10/03/24 EF 35-40% mid to distal septal andapical AK, RV moderately dilated with mildly reduced LVF
-R heart cath 11/14/2024 at 80.4 kg: RA 20, PA 85/32. Assume PCWP close to PAD of 32 mmHg.
-Admit weight 88 kg but weight in Sep 2024 was 78.7 kg. She was 75 kg one month ago.
-High risk situation with cardiorenal syndrome, and high risk for HD initiation.
-Close monitoring of labs, telemetry, weight.
-GDMT with metoprolol succinate, isosorbide mononitrate and hydralazine as hemodynamics will permit.
-No role for ACEI/ARB/ARNi/MRA/SGLT2i given renal function.
- Likely dry weight is 76 kg
-remainson lasix
- HD per nephrology
ANDI on CKD
-Nephrologyfollowing
- hemodialysis per neprhology
Atrial fibrillation
-Persistent, currently in atrial fibrillation.
-Rate control with metoprolol.
-CHADS2-Vasc = 4 (CHF, Age x1, vascular disease, female gender).
-Therapeutic anticoagulation with apixaban.
Sacral decubitus ulcers
-Acute/chronic.
-Wound management.
Chronic Ischemic cardiomyopathy, LVEF = EF 35-40% with mild AI, moderate TR (TTE, 10/03/2024).
Chronic CAD, prior CABG (TRAORE to LAD, SVG to OM, SVG to RPDA).
Chronic complete Heart Block/Pacemaker
Occluded right subclavian vein
Subjective/Interval History:
weight is back to 76.6 kg.
DATA:
Right heart cath 11/14/2024:
CONCLUSION:
1. Right axillary/subclavian vein stenosis that will not permit passage of a 5 [place] balloon wedge catheter.
2. Assuming that PAD = PCWP, severely elevated filling pressures (PAD = 32 mmHg).
3. Severe precapillary and postcapillary pulmonary hypertension (PA mean = 49 mmHg, PAD/PCWP = 32 mmHg, cardiac output = 3.17 L/min, PVR = 5.36 Rosario units).
4. Mixed picture, likely at least mildly impaired cardiac function (cardiac index = 1.65 L/min/m�, AVO2 difference <5.5 volume%).
TTE, 10/03/2024:
Normal LV size with moderately reduced systolic function. LVEF 35-40%.
Akinesis of the mid to distal septal wall and apex.
Right ventricle is moderately dilated with mildly reduced systolic function.
Mild mitral regurgitation
Mild to moderate aortic regurgitation.
Moderate tricuspid regurgitation. Estimated PASP 71 mmHg.
Compared to prior echocardiogram on 05/12/2023, there is no significant change.
CT Pelvis, 11/07/2024:
1. No findings at CT highly suspicious for osteomyelitis. There is chronic sacrococcygeal subluxation. Unchanged diffuse abnormally increased osseous sclerosis.
2. Small volume of ascites. Anasarca.
3. Moderate parastomal hernia. Small volume of ascites within the hernia.
4. Juan catheter in position. Mild diffuse urinary bladder wall thickening.
Physical Exam
Vital Signs/Labs
Vital Signs
Temp Pulse Resp BP Pulse Ox
97.9 F 62 18 115/64 97
11/24/24 07:00 11/24/24 07:00 11/24/24 07:00 11/24/24 07:00 11/24/24 07:00
11/23/24 11/24/24 11/25/24
06:59 06:59 06:59
Actual Weight 76.714 kg 73.981 kg
PT 19.5 Sec (11.4-14.6) H 11/14/24 05:38
INR 1.62 11/14/24 05:38
Magnesium 1.8 mg/dl (1.6-2.3) 11/23/24 05:48
11/02/24
13:05
Iyc-W-Bmskeuyeocf Pept > 01409
Physical Exam
Constitutional: No acute distress (getting HD)
EENT: Anicteric
Cardiovascular: Rhythm & rate is regular
Respiratory: Other (crackles at bases )
GI: Soft
Neuro/Psych: Alert
Data Reviewed
-
Date of Service: November 24, 2024
Medical Decision Making: Reviewed Test Results
Echo: Report Reviewed by me
X-Ray/CT/US/MRI/NUC/PET: Report Reviewed by me
Labs: Labs Reviewed by me
[2024-11-24 08:39] LABS: % Basophils 0.5 % (0-2); % Eosinophils 3.1 % (0-6); % Immature Granulocytes 0.5 % (0-0.5); % Lymphocytes 10.2 % (20.5-51.1); % Monocytes 10.4 % (1.7-9.3); % Neutrophils 75.3 % (42.2-75.2); Absolute Eosinophils 0.1 10^3/uL (0-0.7); Absolute Lymphocytes 0.4 10^3/uL (1.2-3.4); Absolute Monocytes 0.4 10^3/uL (0.1-0.6); Absolute Neutrophils 3.2 10^3/uL (1.4-6.5); Hematocrit 30.1 % (37.0-47.0); Hemoglobin 9.1 g/dL (12.0-16.0); Mean Corp Hgb Conc. 30.2 g/dL (33.0-37.0); Mean Corpuscular Hgb 29.4 pg (27.0-31.0); Mean Corpuscular Volume 97.1 fL (81.0-99.0); Mean Platelet Volume 10.9 fL (7.4-10.4); Nucleated Red Blood Cells % 0 %; Platelet Count 116 10^3/uL (130-400); Red Cell Dist. Width 15.1 % (11.5-14.5); Reticulocyte Count 2.8 % (0.4-2.8); White Blood Cell Count 4.2 10^3/uL (4.8-10.8)
[2024-11-24] MEDS: MANNITOL 25% 12.5 GRAMS IV ×2 (08:42→09:09)
[2024-11-24] MEDS: RETACRIT 3000 UNITS IV (08:42)
[2024-11-24] MEDS: FLEXBUMIN 25% FOR HEMODIALYSIS 12.5 GRAMS IV ×2 (08:46→10:43)
--- NOTE | 2024-11-24 09:39 | CON.ONC ---
Impression
Impression
Pancytopenia
End-stage renal disease on dialysis
Decubitus ulcers chronic inflammation
Congestive heart failure
Atrial fibrillation
Diabetes mellitus
Ostomy
Plan
Plan
Serum protein electrophoresis was normal in September
Check kappa lambda light chain
Await B12 and folic acid
Suspect waxing and waning cytopenias multifactorial
Bone marrow biopsy would be necessary to rule out myelodysplasia
Consider outpatient workup for NGS testing
Supportive measures as needed
Patient History
History of Present Illness
74 y/o female with CHB s/p PPM, persistent atrial fibrillation, CAD s/p CABG and ICMO admitted with weakness and fatigue, managed for decompensated HFrEF with ANDI. Current receiving dialysis with 3000 units of Procrit with each treatment. Chronic
inflammation secondary to decubitus ulcers. Review of CBC indicates that she has had pancytopenia for years. Baseline hemoglobin appears to be 10 g/dL presumably secondary to chronic inflammation.
She previously has been able to mount a neutrophil response. She has chronic lymphopenia. Previous CT scan failed to show evidence of splenomegaly. Patient hospitalized for 22 days.
Past-Medical/Surgical History
Past Medical History
Past Medical History: Arrhythmias, CAD and CHF
Social History
Tobacco: Former Smoker
Family History
Family History: Reviewed & Not Pertinent
Allergies / Home Medications
Patient Medication
�Medication �Instructions �Recorded �Confirmed �Last Taken �Type
metoprolol succinate 50 mg 50 mg PO DAILY Heart 12/03/20 11/02/24 09/09/24 History
tablet,extended release 24 hr disease/condition
atorvastatin 40 mg tablet (Lipitor) 40 mg PO HS High cholesterol 02/18/23 11/02/24 09/09/24 History
buspirone 5 mg tablet 5 mg PO BID anxiety 02/18/23 11/02/24 09/09/24 History
mirtazapine 7.5 mg tablet 7.5 mg PO HS depression/sleep 02/18/23 11/02/24 09/09/24 History
acetaminophen 500 mg tablet 1,000 mg PO Q6HPRN PRN mild pain 09/30/24 11/02/24 Unknown History
(Tylenol Extra Strength)
apixaban 5 mg tablet (Eliquis) 5 mg PO BID Blood Clot 11/02/24 11/02/24 Unknown History
Prevention/Tx
cyanocobalamin (vitamin B-12) 1,000 mcg PO DAILY Supplement 11/02/24 11/02/24 Unknown History
1,000 mcg tablet
ferrous sulfate 325 mg (65 mg 325 mg PO DAILY Supplement 11/02/24 11/02/24 Unknown History
iron) tablet
furosemide 40 mg tablet 40 mg PO DAILY Fluid 11/02/24 11/02/24 Unknown History
Retention/Swelling
hydralazine 25 mg tablet 25 mg PO TID Blood Pressure 11/02/24 11/02/24 Unknown History
insulin aspart U-100 100 unit/mL 12 unit SC AC diabetes 11/02/24 11/02/24 Unknown History
(3 mL) subcutaneous pen (Novolog
FlexPen U-100 Insulin aspart)
insulin glargine 100 unit/mL (3 20 unit SC HS Diabetes 11/02/24 11/02/24 Unknown History
mL) subcutaneous pen (Lantus
Solostar U-100 Insulin)
isosorbide mononitrate 30 mg 30 mg PO DAILY Heart 11/02/24 11/02/24 Unknown History
tablet,extended release 24 hr Disease/Condition
ketotifen fumarate 0.025 % (0.035 1 drp BOTH EYES BID Eye Condition 11/02/24 11/02/24 Unknown History
%) eye drops
loratadine 10 mg tablet 10 mg PO DAILY Allergies 11/02/24 11/02/24 Unknown History
omeprazole 40 mg capsule,delayed 40 mg PO DAILY Gastrointestinal 11/02/24 11/02/24 Unknown History
release Issue
tramadol 25 mg tablet 25 mg PO [id number] PRN pain scale 11/02/24 11/02/24 Unknown History
from 4-7
Active Medications
Generic Name Dose Route Start Last Admin
Trade Name Freq PRN Reason Stop Dose Admin
Acetaminophen 650 mg 11/02/24 16:46 11/23/24 16:56
Acetaminophen 325 Mg Tablet PO 11/30/24 16:45 650 mg
Q4HPRN PRN Administration
mild pain/ fever>100.5F
Apixaban 5 mg 11/02/24 20:00 11/23/24 21:15
Apixaban (Eliquis) 5 Mg Tablet PO 11/30/24 19:59 5 mg
BID JUAN LUIS Administration
Atorvastatin Calcium 40 mg 11/02/24 22:00 11/23/24 21:16
Atorvastatin (Lipitor) 40 Mg Tablet PO 11/30/24 21:59 40 mg
HS JUAN LUIS Administration
Buspirone HCl 5 mg 11/02/24 20:00 11/23/24 21:13
Buspirone 5 Mg Tablet PO 11/30/24 19:59 5 mg
BID JUAN LUIS Administration
Cyanocobalamin 1,000 mcg 11/03/24 08:00 11/23/24 09:03
Cyanocobalamin 1,000 Mcg Tablet PO 12/01/24 07:59 1,000 mcg
DAILY JUAN LUIS Administration
Dextrose 12.5 grams 11/02/24 16:46
Dextrose 50% (0.5 Grams/Ml) 50 Ml Syringe IV 11/30/24 16:45
[id number] PRN
hypoglycemia
Protocol
Emollient Ointment 0 applic 11/04/24 08:00 11/23/24 09:07
Petrolatum/Mineral Oil (Hydrophor) Oint 100 Gram TOPICAL 12/02/24 07:59 1 applic
DAILY JUAN LUIS Administration
Furosemide 80 mg 11/22/24 16:00 11/23/24 16:26
Furosemide 80 Mg Tablet PO 12/20/24 15:59 80 mg
BID@0800,1600 JUAN LUIS Administration
Glucagon 1 mg 11/02/24 16:46
Glucagon 1 Mg Vial IM 11/30/24 16:45
PRN PRN
hypoglycemia
Protocol
Hydralazine HCl 25 mg 11/02/24 16:46 11/23/24 21:16
Hydralazine 25 Mg Tablet PO 11/30/24 16:45 25 mg
TID JUAN LUIS Administration
Insulin Glargine 14 units/ 0.14 mls @ 0 mls/hr 11/06/24 09:17 11/23/24 22:01
Device SC 11/30/24 21:59 0.14 mls
HS JUAN LUIS Administration
As Directed
Insulin Aspart 0 units 11/02/24 16:46 11/23/24 16:31
Insulin Aspart Moderate Resistance 300 Units/3 Ml Pen.Injctr SC 11/30/24 16:45 1 units
AC JUAN LUIS Administration
Protocol
Insulin Aspart 6 units 11/06/24 09:20 11/23/24 16:31
Insulin Aspart (100 Units/Ml) 3 Ml Flexpen SC 12/04/24 09:19 6 units
AC JUAN LUIS Administration
Isosorbide Mononitrate 30 mg 11/03/24 08:00 11/23/24 09:03
Isosorbide Mononitrate 30 Mg Extended Release Tablet PO 12/01/24 07:59 30 mg
DAILY JUAN LUIS Administration
Metoprolol Succinate 25 mg 11/08/24 14:00 11/23/24 09:03
Metoprolol 25 Mg Extended Release Tablet PO 12/06/24 13:59 25 mg
DAILY JUAN LUIS Administration
Miconazole Nitrate 0 applic 11/03/24 20:00 11/23/24 21:13
Miconazole 2% (Same As Aloe [place]) Ointment Tube TOPICAL 12/01/24 19:59 1 applic
BID JUAN LUIS Administration
Mirtazapine 7.5 mg 11/02/24 22:00 11/23/24 21:15
Mirtazapine 7.5 Mg Regular Release Tablet PO 01/01/25 21:59 7.5 mg
HS JUAN LUIS Administration
Pantoprazole Sodium 40 mg 11/03/24 08:00 11/23/24 09:03
Pantoprazole 40 Mg Delayed Release Tablet PO 12/01/24 07:59 40 mg
DAILY JUAN LUIS Administration
Silver Nitrate 1 each 11/18/24 11:28
Silver Nitrate Applicator 1 Each Stick TOPICAL 12/16/24 11:27
PRN PRN
bleeding at stoma site
Sodium Chloride 0 flush 11/02/24 17:00
Sodium Chloride 0.9% (Flush) Syringe IV 11/30/24 16:59
PER PROTOCOL JUAN LUIS
Review of Systems
-
10 point review of systems fails elicit additional complaints other than those reviewed in HPI
Physical Exam
-
Physical Exam
General: Well Developed, Well Nourished and No Apparent Distress
HEENT: Normocephalic and Anicteric
Chest wall: Dialysis catheter
Respiratory: Crackles (b/l bases)
Cardiac: Regular Rhythm
Musculoskeletal: Edema
Skin: Warm and Dry
Neuro: AO x 3
Psych: Calm
Labs
Lab Results
WBC 4.2 10^3/uL (4.8-10.8) L 11/24/24 07:57
RBC 3.10 10^6/uL (4.20-5.40) L 11/24/24 07:57
Hgb 9.1 g/dL (12.0-16.0) L 11/24/24 07:57
Hct 30.1 % (37.0-47.0) L 11/24/24 07:57
MCV 97.1 fL (81.0-99.0) 11/24/24 07:57
MCH 29.4 pg (27.0-31.0) 11/24/24 07:57
MCHC 30.2 g/dL (33.0-37.0) L 11/24/24 07:57
RDW 15.1 % (11.5-14.5) H 11/24/24 07:57
Plt Count 116 10^3/uL (130-400) L 11/24/24 07:57
MPV 10.9 fL (7.4-10.4) H 11/24/24 07:57
Abs Immat Gran (auto) 0.0 10^3/uL (0-0.05) 11/24/24 07:57
Absolute Neuts (auto) 3.2 10^3/uL (1.4-6.5) 11/24/24 07:57
Absolute Lymphs (auto) 0.4 10^3/uL (1.2-3.4) L 11/24/24 07:57
Absolute Monos (auto) 0.4 10^3/uL (0.1-0.6) 11/24/24 07:57
Absolute Eos (auto) 0.1 10^3/uL (0-0.7) 11/24/24 07:57
Absolute Basos (auto) 0.0 10^3/uL (0-0.2) 11/24/24 07:57
Immature Gran % 0.5 % (0-0.5) 11/24/24 07:57
Neutrophils % 75.3 % (42.2-75.2) H 11/24/24 07:57
Lymphocytes % 10.2 % (20.5-51.1) L 11/24/24 07:57
Monocytes % 10.4 % (1.7-9.3) H 11/24/24 07:57
Eosinophils % 3.1 % (0-6) 11/24/24 07:57
Basophils % 0.5 % (0-2) 11/24/24 07:57
Creatinine 2.9 mg/dL (0.6-1.0) H 11/23/24 05:48
Vital Signs
Vital Signs
Temp Pulse Resp BP Pulse Ox
97.9 F 62 18 115/64 97
11/24/24 07:00 11/24/24 07:00 11/24/24 07:00 11/24/24 07:00 11/24/24 07:00
[2024-11-24] MEDS: NOVOLOG FLEXPEN SC (10:15)
[2024-11-24] MEDS: APRESOLINE PO (10:16)
[2024-11-24] MEDS: BUSPAR PO (10:16)
[2024-11-24] MEDS: NOVOLOG FLEXPEN-MODERATE RESISTANCE SC ×3 (10:16→16:41)
[2024-11-24] MEDS: LASIX PO (10:16)
[2024-11-24] MEDS: ELIQUIS PO (10:16)
[2024-11-24] MEDS: HEPARIN 2400 UNITS INTRACATH (10:41)
[2024-11-24 10:44] LABS: ALT (SGPT) 14 U/L (0-35); AST (SGOT) 34 U/L (14-36); Albumin 3.6 g/dl (3.5-5.0); Alkaline Phosphatase 137 U/L (38-126); Blood Urea Nitrogen 90 mg/dl (7-17); Calcium 9.1 mg/dl (8.4-10.2); Carbon Dioxide 26 mmol/L (22-30); Chloride 100 mmol/L (98-107); Estimated Creatinine Clearance 15 ml/min; Glucose 147 mg/dl (70-99); Iron 61 ug/dl (37-170); Potassium 3.8 mmol/L (3.5-5.1); Sodium 140 mmol/L (135-145); Total Bilirubin 0.5 mg/dl (0.2-1.3); Total Protein 6.5 g/dl (6.3-8.2); eGFR 14.82
[2024-11-24 10:54] LABS: Percent Saturation 17 % (20-50); Total Iron Binding Capacity 346 ug/dl (265-497)
--- NOTE | 2024-11-24 11:22 | W.PN.HOSP.TC ---
Today's Communication/Plan
-
CM to start to look for rehab with HD
Assessment / Plan
Assessment / Plan
74 y/o female with CHB s/p PPM, persistent atrial fibrillation, CAD s/p CABG and ICMO admitted with weakness and fatigue, managed for decompensated HFrEF with ANDI. Also found to have severe decubitus ulcers without signs of OM on CT. Started on HD
on 11/22/24 with good fluid control. Now pending rehab with HD
A/P
#Acute on chronic HFrEF
#Elevated troponin due to non myocardial ischemic injury.
#Hx of AVB s/p PPM
#CAD s/p CABG
#Ischemic CM
#Persistent Afib
Lasix, daily weight, follow electrolytes
RHC on 11/14/24 - increased PCWP - cont diuresis, ALso found R subclavian occlusion
Pending dry weight 75kg and then oral Lasix with 24h monitoring
GDMT limited by kidney function
#ANDI on CKD 4 (cardiorenal)
Nephro follows
Patient is agreeable with HD if needed
Daily BMP
#Anemia most likely 2/2 CKD
monitor CBC
#Right axillary/subclavian vein stenosis
Outpatient VascSx
Will need CTA, now with advanced ANDI on CKD - high risk
Asymptomatic
#Stage IV left ischial pressure injury, present on admission
#Stage III sacral pressure injury, POA
CT without signs of OM
wound care
#Bleeding from ostomy
resolved after nitrate stick
#DM type 2 with nephropathy
Insulin SS, accuchecks, DM diet
#Anxiety/depression
#GERD
cont home meds
#pancytopenia
varois cell abnormalities at least since 2019
monitor
Hematology consult
DVT ppx on eliquis
Full code
I have spent at least 59min reviewing chart, test results, communication with consultants and direct patient care
Anticipated Discharge: 24 - 48 hours
Subjective/Interval History
-
Date of Service: November 24, 2024
Objective Data
-
Labs:
Laboratory Results
11/24/24
07:57
WBC 4.2 L
Hgb 9.1 L
Hct 30.1 L
Plt Count 116 L
Sodium 140
Potassium 3.8
Chloride 100
Carbon Dioxide 26
BUN 90 H
Creatinine 3.2 H
Glucose 147 H
Calcium 9.1
Total Bilirubin 0.5
AST 34
ALT 14
Alkaline Phosphatase 137 H
Vital Signs:
Vital Signs
Temp Pulse Resp BP Pulse Ox
97.9 F 62 18 115/64 97
11/24/24 07:00 11/24/24 07:00 11/24/24 07:00 11/24/24 07:00 11/24/24 07:00
I&O
11/23/24 11/24/24 11/25/24
06:59 06:59 06:59
Intake Total 240 / 240
Output Total 150 / 150
Balance 90 / 90
Review of Systems
-
History Source: Patient
All other systems: Reviewed and negative
Physical Exam
-
General: No Apparent Distress
HEENT: Normocephalic
Respiratory: Clear to Auscultation
Cardiac: Regular Rhythm
Genito-urinary: No Costovertebral Tender
Musculoskeletal: No Clubbing, No Cyanosis and No Edema
Neuro: Awake, Alert, Oriented and AO x 3
Psych: Calm
[2024-11-24 11:35] LABS: Glucose - Point of Care 135 mg/dl (70-99)
[2024-11-24] MEDS: PROTONIX 40 MG PO (11:42)
[2024-11-24] MEDS: TOPROL XL 25 MG PO (11:42)
[2024-11-24] MEDS: IMDUR (EXTENDED RELEASE) 30 MG PO (11:45)
[2024-11-24] MEDS: VITAMIN B-12 1000 MCG PO (11:45)
[2024-11-24] MEDS: NOVOLOG FLEXPEN 6 UNITS SC ×2 (11:47→17:12)
[2024-11-24] MEDS: TYLENOL 650 MG PO (13:58)
--- NOTE | 2024-11-24 14:07 | W.PN.NEPH.HD ---
Assessment
-
Second dialysis treatment today next treatment will be tomorrow Thursday then Thursday unless otherwise needed
Progress Note - Hemodialysis
-
Date of Service: November 24, 2024
Duration: 15 minutes and 2 hours
Potassium Bath: 3
Calcium Bath: 2.5
Opti-Dialyzer: 160
Ultrafiltration: Other (1kg)
Blood Flow: 250
Dialysate Flow: Other (400)
Heparin: no
EPO: 3000
[2024-11-24 14:32] LABS: Ferritin 46.9 ng/ml (11.1-264.0)
[2024-11-24 15:03] LABS: Folate 5.9 ng/ml (2.76-20); Vitamin B12 > 1000 pg/ml (239-931)
[2024-11-24 15:08] VITALS: BP 107/48
[2024-11-24 16:17] LABS: Glucose - Point of Care 135 mg/dl (70-99)
--- NOTE | 2024-11-24 16:47 | CM ---
Chart reviewed: Second dialysis treatment today next treatment will be tomorrow Thursday then Thursday
Anticipated discharge 24-48 hours
Sent updated clinicals to SNFs who can support HD
[2024-11-24] MEDS: APRESOLINE 25 MG PO ×2 (17:07→20:04)
[2024-11-24] MEDS: LASIX 80 MG PO (17:07)
[2024-11-24] MEDS: HYDROPHOR 1 APPLIC TOPICAL (17:13)
[2024-11-24] MEDS: ANTIFUNGAL CLEAR 1 APPLIC TOPICAL ×2 (17:17→20:05)
[2024-11-24 19:41] VITALS: BP 117/50
[2024-11-24] MEDS: ELIQUIS 5 MG PO (20:04)
[2024-11-24] MEDS: REMERON 7.5 MG PO (20:04)
[2024-11-24] MEDS: LIPITOR 40 MG PO (20:04)
[2024-11-24] MEDS: BUSPAR 5 MG PO (20:04)
[2024-11-24 21:53] LABS: Glucose - Point of Care 295 mg/dl (70-99)
[2024-11-24] MEDS: LANTUS 0.14 UNITS SC (22:11)
[2024-11-24 23:30] VITALS: BP 118/54
[2024-11-25] VITALS (8 sets, daily range): BP systolic 100–145; BP diastolic 31–67; BMI 24.9
[2024-11-25 08:06] LABS: Glucose - Point of Care 168 mg/dl (70-99)
[2024-11-25] MEDS: NOVOLOG FLEXPEN 6 UNITS SC ×2 (10:13→17:19)
[2024-11-25] MEDS: NOVOLOG FLEXPEN-MODERATE RESISTANCE 1 UNITS SC ×2 (10:13→14:03)
[2024-11-25] MEDS: APRESOLINE 25 MG PO ×2 (10:14→17:28)
[2024-11-25] MEDS: VITAMIN B-12 1000 MCG PO (10:14)
[2024-11-25] MEDS: BUSPAR 5 MG PO ×2 (10:15→21:55)
[2024-11-25] MEDS: IMDUR (EXTENDED RELEASE) 30 MG PO (10:15)
[2024-11-25] MEDS: LASIX 80 MG PO ×2 (10:15→17:28)
[2024-11-25] MEDS: PROTONIX 40 MG PO (10:16)
[2024-11-25] MEDS: TOPROL XL 25 MG PO (10:16)
[2024-11-25] MEDS: ELIQUIS 5 MG PO ×2 (10:16→21:54)
[2024-11-25] MEDS: HYDROPHOR 1 APPLIC TOPICAL (10:17)
--- NOTE | 2024-11-25 10:30 | W.PN.CD ---
Today's Communication / Plan
-
Respiratory status stable. Patient tolerated hemodialysis yesterday
Volume control and HD as directed by nephrology
Impression / Plan
-
Background: 74 y/o female with CHB s/p PPM, persistent atrial fibrillation, CAD s/p CABG and ICMO admitted with decompensated HFrEF with ANDI, found to have severe decubitus ulcers.
HFrEF, acute on chronic
- echo 10/03/24 EF 35-40% mid to distal septal andapical AK, RV moderately dilated with mildly reduced LVF
-R heart cath 11/14/2024 at 80.4 kg: RA 20, PA 85/32. Assume PCWP close to PAD of 32 mmHg.
-Admit weight 88 kg but weight in Sep 2024 was 78.7 kg. She was 75 kg one month ago.
-High risk situation with cardiorenal syndrome, and high risk for HD initiation.
-Close monitoring of labs, telemetry, weight.
-GDMT with metoprolol succinate, isosorbide mononitrate and hydralazine as hemodynamics will permit.
-No role for ACEI/ARB/ARNi/MRA/SGLT2i given renal function.
- Likely dry weight is 76 kg
-remainson lasix
- HD per nephrology
ANDI on CKD
-Nephrologyfollowing
- hemodialysis per neprhology. Patient received HD 11/24/2024
Atrial fibrillation
-Persistent, currently in atrial fibrillation.
-Rate control with metoprolol.
-CHADS2-Vasc = 4 (CHF, Age x1, vascular disease, female gender).
-Therapeutic anticoagulation with apixaban.
Sacral decubitus ulcers
-Acute/chronic.
-Wound management.
Chronic Ischemic cardiomyopathy, LVEF = EF 35-40% with mild AI, moderate TR (TTE, 10/03/2024).
Chronic CAD, prior CABG (TRAORE to LAD, SVG to OM, SVG to RPDA).
Chronic complete Heart Block/Pacemaker
Occluded right subclavian vein
Subjective/Interval History:
weight is back to 76.6 kg.
DATA:
Right heart cath 11/14/2024:
CONCLUSION:
1. Right axillary/subclavian vein stenosis that will not permit passage of a 5 Danish balloon wedge catheter.
2. Assuming that PAD = PCWP, severely elevated filling pressures (PAD = 32 mmHg).
3. Severe precapillary and postcapillary pulmonary hypertension (PA mean = 49 mmHg, PAD/PCWP = 32 mmHg, cardiac output = 3.17 L/min, PVR = 5.36 Rosario units).
4. Mixed picture, likely at least mildly impaired cardiac function (cardiac index = 1.65 L/min/m�, AVO2 difference <5.5 volume%).
TTE, 10/03/2024:
Normal LV size with moderately reduced systolic function. LVEF 35-40%.
Akinesis of the mid to distal septal wall and apex.
Right ventricle is moderately dilated with mildly reduced systolic function.
Mild mitral regurgitation
Mild to moderate aortic regurgitation.
Moderate tricuspid regurgitation. Estimated PASP 71 mmHg.
Compared to prior echocardiogram on 05/12/2023, there is no significant change.
CT Pelvis, 11/07/2024:
1. No findings at CT highly suspicious for osteomyelitis. There is chronic sacrococcygeal subluxation. Unchanged diffuse abnormally increased osseous sclerosis.
2. Small volume of ascites. Anasarca.
3. Moderate parastomal hernia. Small volume of ascites within the hernia.
4. Juan catheter in position. Mild diffuse urinary bladder wall thickening.
Physical Exam
Vital Signs/Labs
Vital Signs
Temp Pulse Resp BP Pulse Ox
97.4 F 61 17 125/58 97
11/25/24 07:10 11/25/24 07:10 11/25/24 07:10 11/25/24 07:10 11/25/24 07:10
11/24/24 11/25/24 11/26/24
06:59 06:59 06:59
Actual Weight 73.981 kg 71.923 kg
PT 19.5 Sec (11.4-14.6) H 11/14/24 05:38
INR 1.62 11/14/24 05:38
Magnesium 1.8 mg/dl (1.6-2.3) 11/23/24 05:48
11/02/24
13:05
Pox-C-[id number] Pept > 14869
Physical Exam
Constitutional: No acute distress
Cardiovascular: Rhythm & rate is regular
Respiratory: Wheeze Absent and Rhonchi Absent
GI: Soft
Neuro/Psych: Alert
Data Reviewed
-
Date of Service: November 25, 2024
Medical Decision Making: Reviewed Test Results
Medical Tests (PFT, Pathology etc): Report Reviewed by me
Labs: Labs Reviewed by me
--- NOTE | 2024-11-25 10:51 | W.PN.HOSP.TC ---
Today's Communication/Plan
-
medically stable for rehab
Assessment / Plan
Assessment / Plan
74 y/o female with CHB s/p PPM, persistent atrial fibrillation, CAD s/p CABG and ICMO admitted with weakness and fatigue, managed for decompensated HFrEF with ANDI. Also found to have severe decubitus ulcers without signs of OM on CT. Started on HD
on 11/22/24 with good fluid control. Now pending rehab with HD
A/P
#Acute on chronic HFrEF
#Elevated troponin due to non myocardial ischemic injury.
#Hx of AVB s/p PPM
#CAD s/p CABG
#Ischemic CM
#Persistent Afib
Lasix, daily weight, follow electrolytes
RHC on 11/14/24 - increased PCWP - cont diuresis, ALso found R subclavian occlusion
Pending dry weight 75kg and then oral Lasix with 24h monitoring
GDMT limited by kidney function
#ANDI on CKD 4 (cardiorenal)
Nephro follows
Patient is agreeable with HD if needed
Daily BMP
#Anemia most likely 2/2 CKD
monitor CBC
#Right axillary/subclavian vein stenosis
Outpatient VascSx
Will need CTA, now with advanced ANDI on CKD - high risk
Asymptomatic
#Stage IV left ischial pressure injury, present on admission
#Stage III sacral pressure injury, POA
CT without signs of OM
wound care
#Bleeding from ostomy
resolved after nitrate stick
#DM type 2 with nephropathy
Insulin SS, accuchecks, DM diet
#Anxiety/depression
#GERD
cont home meds
#pancytopenia
varois cell abnormalities at least since 2019
monitor
Hematology consult
DVT ppx on eliquis
Full code
I have spent at least 59min reviewing chart, test results, communication with consultants and direct patient care
Anticipated Discharge: 24 - 48 hours
Subjective/Interval History
-
Date of Service: November 25, 2024
Objective Data
-
Labs:
Laboratory Results
11/25/24
12:00
Hgb Pending
Hct Pending
Sodium Pending
Potassium Pending
Chloride Pending
Carbon Dioxide Pending
Vital Signs:
Vital Signs
Temp Pulse Resp BP Pulse Ox
97.4 F 61 17 125/58 97
11/25/24 07:10 11/25/24 07:10 11/25/24 07:10 11/25/24 07:10 11/25/24 07:10
I&O
11/24/24 11/25/24 11/26/24
06:59 06:59 06:59
Intake Total 840 / 840
Output Total 500 / 500
Balance 340 / 340
Review of Systems
-
History Source: Patient
All other systems: Reviewed and negative
Physical Exam
-
General: No Apparent Distress
Skin: Warm
Neuro: Awake, Alert, Oriented and AO x 3
Psych: Calm
[2024-11-25 12:11] LABS: Glucose - Point of Care 212 mg/dl (70-99)
[2024-11-25 13:01] LABS: Glucose - Point of Care 152 mg/dl (70-99)
--- NOTE | 2024-11-25 13:01 | W.PN.NEPH.HD ---
Assessment
-
Seen on HD. no complaints. VSS, access ok
await OP HD unit
Progress Note - Hemodialysis
-
Date of Service: November 25, 2024
Duration: 3 hours
Potassium Bath: 3
Calcium Bath: 2.5
Ultrafiltration: Other (1kg)
Blood Flow: 350
Dialysate Flow: 600
Heparin: no
EPO: 4000 units
[2024-11-25 13:14] LABS: Hematocrit 28.1 % (37.0-47.0); Hemoglobin 8.7 g/dL (12.0-16.0)
[2024-11-25 13:31] LABS: Carbon Dioxide 29 mmol/L (22-30); Chloride 99 mmol/L (98-107); Potassium 4.5 mmol/L (3.5-5.1); Sodium 137 mmol/L (135-145)
[2024-11-25] MEDS: NOVOLOG FLEXPEN SC (14:02)
[2024-11-25] MEDS: ANTIFUNGAL CLEAR 1 APPLIC TOPICAL ×2 (14:04→21:52)
[2024-11-25] MEDS: RETACRIT 4000 UNITS IV (15:02)
[2024-11-25 17:01] LABS: Glucose - Point of Care 137 mg/dl (70-99)
[2024-11-25] MEDS: NOVOLOG FLEXPEN-MODERATE RESISTANCE SC (17:16)
--- NOTE | 2024-11-25 18:18 | PTCARENOTE ---
Colostomy bag emptied for moderate amount brown stool. Appliance is a one piece wafer and bag that is dated 11/18. This nurse offered to change appliance, but patient declined. Ostomy bag secured with clip, patient given echo-care and left
positioned on right side with call castanon in reach.
[2024-11-25] MEDS: LIPITOR 40 MG PO (21:52)
[2024-11-25 21:57] LABS: Glucose - Point of Care 256 mg/dl (70-99)
--- NOTE | 2024-11-25 22:10 | PTCARENOTE ---
This RN took patient's blood pressure before giving medications. Automatic BP was 107/35, Manual was 108/34. TAMAR Dickens notified of patient's blood pressure. This RN was advised to recheck BP at 2300 and hold scheduled dose of Hydralazine
if it is still low. Please refer to MAR. Care ongoing.
[2024-11-25] MEDS: LANTUS 0.14 UNITS SC (22:18)
[2024-11-25] MEDS: REMERON 7.5 MG PO (22:20)
[2024-11-25] MEDS: TYLENOL 650 MG PO (22:28)
[2024-11-25] MEDS: APRESOLINE PO (23:06)
[2024-11-26 03:00] VITALS: BP 120/51
[2024-11-26 06:00] VITALS: BMI 24.9
[2024-11-26 07:10] VITALS: BP 128/60
[2024-11-26 07:55] LABS: Glucose - Point of Care 106 mg/dl (70-99)
[2024-11-26] MEDS: NOVOLOG FLEXPEN-MODERATE RESISTANCE SC (08:36)
[2024-11-26] MEDS: BUSPAR 5 MG PO ×2 (08:37→22:20)
[2024-11-26] MEDS: APRESOLINE 25 MG PO ×3 (08:37→22:22)
[2024-11-26] MEDS: IMDUR (EXTENDED RELEASE) 30 MG PO (08:37)
[2024-11-26] MEDS: LASIX 80 MG PO ×2 (08:37→16:36)
[2024-11-26] MEDS: VITAMIN B-12 1000 MCG PO (08:37)
[2024-11-26] MEDS: PROTONIX 40 MG PO (08:37)
[2024-11-26] MEDS: NOVOLOG FLEXPEN 6 UNITS SC ×3 (08:38→17:19)
[2024-11-26] MEDS: TOPROL XL 25 MG PO (08:38)
[2024-11-26] MEDS: ANTIFUNGAL CLEAR 1 APPLIC TOPICAL ×2 (08:39→22:21)
[2024-11-26] MEDS: HYDROPHOR 1 APPLIC TOPICAL (08:40)
[2024-11-26] MEDS: ELIQUIS 5 MG PO ×2 (08:42→22:19)
--- NOTE | 2024-11-26 10:42 | W.PN.NEPH.PH ---
Today's Communication / Plan
-
HD tomorrow
Assessment/Plan
-
Assessment
CKD4 (2.6)
ANDI
Metabolic acidosis
diabetes mellitus type 2 with proteinuria
Heart failure reduced ejection fraction EF 30-35%
Paroxysmal atrial fibrillation
Ileostomy
Failure to thrive
Plan
HD tomorrow (hol schedule)
await OP HD planning
-
-
Date of Service: November 26, 2024
CC / HPI / ROS
-
Chief Complaint:
Acute kidney injury
History of Present Illness:
HD initiated on 11/22
Hemodynamically stable
off jalloh
tolerated HD yesterday
Review of Systems:
on RA, no resting sob or cp
no n/v
Weight decreasing
Labs
-
Labs:
WBC 4.2 10^3/uL (4.8-10.8) L 11/24/24 07:57
RBC 3.10 10^6/uL (4.20-5.40) L 11/24/24 07:57
Hgb 8.7 g/dL (12.0-16.0) L 11/25/24 12:56
Hct 28.1 % (37.0-47.0) L 11/25/24 12:56
Plt Count 116 10^3/uL (130-400) L 11/24/24 07:57
Sodium 137 mmol/L (135-145) 11/25/24 12:56
Potassium 4.5 mmol/L (3.5-5.1) 11/25/24 12:56
Chloride 99 mmol/L (98-107) 11/25/24 12:56
Carbon Dioxide 29 mmol/L (22-30) 11/25/24 12:56
BUN 90 mg/dl (7-17) H 11/24/24 07:57
Creatinine 3.2 mg/dL (0.6-1.0) H 11/24/24 07:57
eGFR 14.82 11/24/24 07:57
Glucose 147 mg/dl (70-99) H 11/24/24 07:57
Calcium 9.1 mg/dl (8.4-10.2) 11/24/24 07:57
Fls-P-Rwgevexusdn Pept > 90287 pg/ml 11/02/24 13:05
Albumin 3.6 g/dl (3.5-5.0) 11/24/24 07:57
Physical Exam
-
Vital Signs:
Vital Signs
Temp Pulse Resp BP Pulse Ox
97.7 F 64 18 128/60 99
11/26/24 07:10 11/26/24 07:10 11/26/24 07:10 11/26/24 07:10 11/26/24 07:10
Cardiovascular:: Regular rate and rhythm
Respiratory:: Bilateral: CTA
Lung Excursion:: Normal
Abdomen:: Nontender and Soft
Bowel Sounds:: Normal
Extremity Edema:: None: Bilateral:
[2024-11-26 11:11] VITALS: BP 124/57
--- NOTE | 2024-11-26 11:22 | W.PN.HOSP.TC ---
Today's Communication/Plan
-
pending placement by CM - medically stable for placement
Assessment / Plan
Assessment / Plan
74 y/o female with CHB s/p PPM, persistent atrial fibrillation, CAD s/p CABG and ICMO admitted with weakness and fatigue, managed for decompensated HFrEF with ANDI. Also found to have severe decubitus ulcers without signs of OM on CT. Started on HD
on 11/22/24 with good fluid control. Now pending rehab with HD
A/P
#Acute on chronic HFrEF
#Elevated troponin due to non myocardial ischemic injury.
#Hx of AVB s/p PPM
#CAD s/p CABG
#Ischemic CM
#Persistent Afib
Lasix, daily weight, follow electrolytes
RHC on 11/14/24 - increased PCWP - cont diuresis, ALso found R subclavian occlusion
Pending dry weight 75kg and then oral Lasix with 24h monitoring
GDMT limited by kidney function
#ANDI on CKD 4 (cardiorenal)
Nephro follows
Patient is agreeable with HD if needed
Daily BMP
#Anemia most likely 2/2 CKD
monitor CBC
#Right axillary/subclavian vein stenosis
Outpatient VascSx
Will need CTA, now with advanced ANDI on CKD - high risk
Asymptomatic
#Stage IV left ischial pressure injury, present on admission
#Stage III sacral pressure injury, POA
CT without signs of OM
wound care
#Bleeding from ostomy
resolved after nitrate stick
#DM type 2 with nephropathy
Insulin SS, accuchecks, DM diet
#Anxiety/depression
#GERD
cont home meds
#pancytopenia
varois cell abnormalities at least since 2019
monitor
Hematology consult
DVT ppx on eliquis
Full code
I have spent at least 36min reviewing chart, test results, communication with consultants and direct patient care
Anticipated Discharge: 24 - 48 hours
Subjective/Interval History
-
Date of Service: November 26, 2024
Objective Data
-
Vital Signs:
Vital Signs
Temp Pulse Resp BP Pulse Ox
98.1 F 61 18 124/57 99
11/26/24 11:11 11/26/24 11:11 11/26/24 11:11 11/26/24 11:11 11/26/24 11:11
I&O
11/25/24 11/26/24 11/27/24
06:59 06:59 06:59
Intake Total 840 / 840 900 / 900
Output Total 500 / 500 300 / 300
Balance 340 / 340 600 / 600
Review of Systems
-
History Source: Patient
All other systems: Reviewed and negative
Physical Exam
-
General: Well Developed
HEENT: Normocephalic and Atraumatic
Respiratory: Clear to Auscultation
Cardiac: Regular Rhythm
[2024-11-26 11:26] LABS: Free Lambda Light Chains,Quant 113.28 mg/L (5.71-26.30); Kappa/Lambda Fr Light Ratio 1.12 (0.26-1.65)
[2024-11-26 12:33] LABS: Glucose - Point of Care 249 mg/dl (70-99)
[2024-11-26] MEDS: NOVOLOG FLEXPEN-MODERATE RESISTANCE 3 UNITS SC (13:43)
--- NOTE | 2024-11-26 13:57 | W.PN.CD ---
Today's Communication / Plan
-
Cont meds HD planned for tomorrow
Impression / Plan
-
Background: 74 y/o female with CHB s/p PPM, persistent atrial fibrillation, CAD s/p CABG and ICMO admitted with decompensated HFrEF with ANDI, found to have severe decubitus ulcers.
HFrEF, acute on chronic
- echo 10/03/24 EF 35-40% mid to distal septal andapical AK, RV moderately dilated with mildly reduced LVF
-R heart cath 11/14/2024 at 80.4 kg: RA 20, PA 85/32. Assume PCWP close to PAD of 32 mmHg.
-Admit weight 88 kg but weight in Sep 2024 was 78.7 kg. She was 75 kg one month ago.
-Now requiring HD
-Close monitoring of labs, telemetry, weight.
-GDMT with metoprolol succinate, isosorbide mononitrate and hydralazine as hemodynamics will permit.
-No role for ACEI/ARB/ARNi/MRA/SGLT2i given renal function.
- Likely dry weight is 76 kg
-remains on lasix
- HD per nephrology
ANDI on CKD
-Nephrologyfollowing
- hemodialysis per neprhology. Patient received HD 11/24/2024
Atrial fibrillation
-Persistent, currently in atrial fibrillation.
-Rate control with metoprolol.
-CHADS2-Vasc = 4 (CHF, Age x1, vascular disease, female gender).
-Therapeutic anticoagulation with apixaban.
Sacral decubitus ulcers
-Acute/chronic.
-Wound management.
Chronic Ischemic cardiomyopathy, LVEF = EF 35-40% with mild AI, moderate TR (TTE, 10/03/2024).
Chronic CAD, prior CABG (TRAORE to LAD, SVG to OM, SVG to RPDA).
Chronic complete Heart Block/Pacemaker
Occluded right subclavian vein
Subjective/Interval History:
weight is back to 76.6 kg. No new complaints
DATA:
Right heart cath 11/14/2024:
CONCLUSION:
1. Right axillary/subclavian vein stenosis that will not permit passage of a 5 Guinean balloon wedge catheter.
2. Assuming that PAD = PCWP, severely elevated filling pressures (PAD = 32 mmHg).
3. Severe precapillary and postcapillary pulmonary hypertension (PA mean = 49 mmHg, PAD/PCWP = 32 mmHg, cardiac output = 3.17 L/min, PVR = 5.36 Rosario units).
4. Mixed picture, likely at least mildly impaired cardiac function (cardiac index = 1.65 L/min/m�, AVO2 difference <5.5 volume%).
TTE, 10/03/2024:
Normal LV size with moderately reduced systolic function. LVEF 35-40%.
Akinesis of the mid to distal septal wall and apex.
Right ventricle is moderately dilated with mildly reduced systolic function.
Mild mitral regurgitation
Mild to moderate aortic regurgitation.
Moderate tricuspid regurgitation. Estimated PASP 71 mmHg.
Compared to prior echocardiogram on 05/12/2023, there is no significant change.
CT Pelvis, 11/07/2024:
1. No findings at CT highly suspicious for osteomyelitis. There is chronic sacrococcygeal subluxation. Unchanged diffuse abnormally increased osseous sclerosis.
2. Small volume of ascites. Anasarca.
3. Moderate parastomal hernia. Small volume of ascites within the hernia.
4. Juan catheter in position. Mild diffuse urinary bladder wall thickening.
Physical Exam
Vital Signs/Labs
Vital Signs
Temp Pulse Resp BP Pulse Ox
98.1 F 61 18 124/57 99
11/26/24 11:11 11/26/24 11:11 11/26/24 11:11 11/26/24 11:11 11/26/24 11:11
11/25/24 11/26/24 11/27/24
06:59 06:59 06:59
Actual Weight 158 lb 9 oz 159 lb
11/25/24 12:56
11/25/24 12:56
PT 19.5 Sec (11.4-14.6) H 11/14/24 05:38
INR 1.62 11/14/24 05:38
Magnesium 1.8 mg/dl (1.6-2.3) 11/23/24 05:48
11/02/24
13:05
Euz-N-Wcmvpjcqxup Pept > [id number]
Physical Exam
Constitutional: No acute distress
EENT: Anicteric
Cardiovascular: Rhythm & rate is regular
Respiratory: Respiratory effort normal
GI: Soft
Neuro/Psych: AO x 3
Data Reviewed
-
Date of Service: November 26, 2024
EKG: Tracing Personally Visualized and interpreted (paced)
Echo: Report Reviewed by me
Labs: Labs Reviewed by me
--- NOTE | 2024-11-26 14:02 | PTCARENOTE ---
Pt refusing to have her ostomy changed.
[2024-11-26 15:10] VITALS: BP 117/49
[2024-11-26 16:47] LABS: Glucose - Point of Care 260 mg/dl (70-99)
[2024-11-26] MEDS: NOVOLOG FLEXPEN-MODERATE RESISTANCE 5 UNITS SC (17:19)
[2024-11-26 19:00] VITALS: BP 125/53
[2024-11-26 22:02] LABS: Glucose - Point of Care 188 mg/dl (70-99)
[2024-11-26] MEDS: LIPITOR 40 MG PO (22:19)
[2024-11-26] MEDS: REMERON 7.5 MG PO (22:20)
[2024-11-26] MEDS: LANTUS 0.14 UNITS SC (22:21)
[2024-11-26 23:00] VITALS: BP 110/45
[2024-11-27] VITALS (7 sets, daily range): BP systolic 96–134; BP diastolic 36–58; BMI 25.7
[2024-11-27] MEDS: APRESOLINE PO ×2 (08:25→15:56)
[2024-11-27] MEDS: VITAMIN B-12 1000 MCG PO (08:26)
[2024-11-27] MEDS: ELIQUIS 5 MG PO ×2 (08:26→20:47)
[2024-11-27] MEDS: BUSPAR 5 MG PO ×2 (08:26→20:47)
[2024-11-27] MEDS: PROTONIX 40 MG PO (08:26)
[2024-11-27] MEDS: IMDUR (EXTENDED RELEASE) 30 MG PO (08:27)
[2024-11-27] MEDS: ANTIFUNGAL CLEAR 1 APPLIC TOPICAL ×2 (08:27→20:48)
[2024-11-27] MEDS: HYDROPHOR 1 APPLIC TOPICAL (08:28)
[2024-11-27 08:41] LABS: Glucose - Point of Care 245 mg/dl (70-99)
[2024-11-27] MEDS: NOVOLOG FLEXPEN SC (08:45)
[2024-11-27] MEDS: LASIX PO ×2 (08:47→15:56)
[2024-11-27] MEDS: TOPROL XL 25 MG PO (08:49)
[2024-11-27] MEDS: NOVOLOG FLEXPEN-MODERATE RESISTANCE 3 UNITS SC (08:50)
[2024-11-27 09:23] LABS: Hematocrit 30.6 % (37.0-47.0); Hemoglobin 9.3 g/dL (12.0-16.0)
[2024-11-27 09:29] LABS: Carbon Dioxide 30 mmol/L (22-30); Chloride 98 mmol/L (98-107); Potassium 5.1 mmol/L (3.5-5.1); Sodium 136 mmol/L (135-145)
[2024-11-27] MEDS: RETACRIT 4000 UNITS IV (10:08)
[2024-11-27] MEDS: FLEXBUMIN 25% FOR HEMODIALYSIS 12.5 GRAMS IV ×2 (10:09→11:19)
[2024-11-27] MEDS: MANNITOL 25% 12.5 GRAMS IV (11:00)
--- NOTE | 2024-11-27 11:18 | W.PN.NEPH.HD ---
Assessment
-
Seen on HD. no Complaints. VSS, access ok
Progress Note - Hemodialysis
-
Date of Service: November 27, 2024
Duration: 30 minutes and 3 hours
Potassium Bath: 2
Calcium Bath: 2.5
Opti-Dialyzer: 160
Ultrafiltration: Other (1.5kg)
Blood Flow: 400
Dialysate Flow: 600
Heparin: no
EPO: 4000 units
--- NOTE | 2024-11-27 11:58 | W.PN.HOSP.TC ---
Today's Communication/Plan
-
CM for d/c planning
Assessment / Plan
Assessment / Plan
74 y/o female with CHB s/p PPM, persistent atrial fibrillation, CAD s/p CABG and ICMO admitted with weakness and fatigue, managed for decompensated HFrEF with ANDI. Also found to have severe decubitus ulcers without signs of OM on CT. Started on HD
on 11/22/24 with good fluid control. Now pending rehab with HD
A/P
#Acute on chronic HFrEF
#Elevated troponin due to non myocardial ischemic injury.
#Hx of AVB s/p PPM
#CAD s/p CABG
#Ischemic CM
#Persistent Afib
Lasix, daily weight, follow electrolytes
RHC on 11/14/24 - increased PCWP - cont diuresis, ALso found R subclavian occlusion
Pending dry weight 75kg and then oral Lasix with 24h monitoring
GDMT limited by kidney function
#ANDI on CKD 4 (cardiorenal)
Nephro follows
Patient is agreeable with HD if needed
Daily BMP
#Anemia most likely 2/2 CKD
monitor CBC
#Right axillary/subclavian vein stenosis
Outpatient VascSx
Will need CTA, now with advanced ANDI on CKD - high risk
Asymptomatic
#Stage IV left ischial pressure injury, present on admission
#Stage III sacral pressure injury, POA
CT without signs of OM
wound care
#Bleeding from ostomy
resolved after nitrate stick
#DM type 2 with nephropathy
Insulin SS, accuchecks, DM diet
#Anxiety/depression
#GERD
cont home meds
#pancytopenia
varois cell abnormalities at least since 2019
monitor
Hematology consult
DVT ppx on eliquis
Full code
I have spent at least 36min reviewing chart, test results, communication with consultants and direct patient care
Anticipated Discharge: > 48 hours
Subjective/Interval History
-
Date of Service: November 27, 2024
Objective Data
-
Labs:
Laboratory Results
11/27/24
08:42
Hgb 9.3 L
Hct 30.6 L
Sodium 136
Potassium 5.1
Chloride 98
Carbon Dioxide 30
Vital Signs:
Vital Signs
Temp Pulse Resp BP Pulse Ox
97.6 F 60 18 114/58 97
11/27/24 11:00 11/27/24 11:00 11/27/24 11:00 11/27/24 11:00 11/27/24 11:00
I&O
11/26/24 11/27/24 11/28/24
06:59 06:59 06:59
Intake Total 900 / 900 1020 / 1020 240 / 240
Output Total 300 / 300 450 / 450 50 / 50
Balance 600 / 600 570 / 570 190 / 190
Review of Systems
-
History Source: Patient
All other systems: Reviewed and negative
Physical Exam
-
General: No Apparent Distress
HEENT: Normocephalic, Atraumatic and Moist Mucous Membranes
Neuro: Awake, Alert, Oriented and AO x 3
Psych: Calm
[2024-11-27] MEDS: HEPARIN 4300 UNITS INTRACATH (12:13)
[2024-11-27 12:34] LABS: Glucose - Point of Care 115 mg/dl (70-99)
[2024-11-27] MEDS: NOVOLOG FLEXPEN-MODERATE RESISTANCE SC (12:34)
[2024-11-27] MEDS: NOVOLOG FLEXPEN 6 UNITS SC ×2 (13:15→17:07)
--- NOTE | 2024-11-27 16:04 | W.PN.UPDATE ---
Addendum entered and electronically signed by Carlo Molina MD 11/27/24 16:06:
stopped hydralazine
Original Note:
Update Note
Progress Note Update
holding lasix, providing bolus 2/2 hypotension
[2024-11-27] MEDS: NSS 250 IV (16:17)
[2024-11-27 16:19] LABS: Glucose - Point of Care 184 mg/dl (70-99)
[2024-11-27] MEDS: NOVOLOG FLEXPEN-MODERATE RESISTANCE 1 UNITS SC (17:07)
[2024-11-27 21:44] LABS: Glucose - Point of Care 292 mg/dl (70-99)
[2024-11-27] MEDS: LANTUS 0.14 UNITS SC (22:19)
[2024-11-27] MEDS: REMERON 7.5 MG PO (22:20)
[2024-11-27] MEDS: LIPITOR 40 MG PO (22:20)
[2024-11-27] MEDS: TYLENOL 650 MG PO (22:20)
[2024-11-28] VITALS (7 sets, daily range): BP systolic 97–126; BP diastolic 35–55; PULSE 62; BMI 25.6
[2024-11-28] MEDS: ANTIFUNGAL CLEAR 1 APPLIC TOPICAL ×2 (07:09→21:46)
[2024-11-28] MEDS: BUSPAR 5 MG PO ×2 (07:10→21:43)
[2024-11-28] MEDS: HYDROPHOR 1 APPLIC TOPICAL (07:10)
[2024-11-28] MEDS: ELIQUIS 5 MG PO ×2 (07:10→21:44)
[2024-11-28] MEDS: PROTONIX 40 MG PO (07:10)
[2024-11-28] MEDS: VITAMIN B-12 1000 MCG PO (07:10)
[2024-11-28] MEDS: IMDUR (EXTENDED RELEASE) 30 MG PO (07:10)
[2024-11-28] MEDS: TOPROL XL PO (07:11)
[2024-11-28 08:00] LABS: Glucose - Point of Care 174 mg/dl (70-99)
--- NOTE | 2024-11-28 08:36 | W.PN.CD ---
Today's Communication / Plan
-
discharge planning
medications will need to be adjusted as HD continues, holding parameters placed.
Impression / Plan
-
Background: 74 y/o female with CHB s/p PPM, persistent atrial fibrillation, CAD s/p CABG and ICMO admitted with decompensated HFrEF with ANDI, found to have severe decubitus ulcers.
HFrEF, acute on chronic
- echo 10/03/24 EF 35-40% mid to distal septal andapical AK, RV moderately dilated with mildly reduced LVF
-R heart cath 11/14/2024 at 80.4 kg: RA 20, PA 85/32. Assume PCWP close to PAD of 32 mmHg.
-Admit weight 88 kg now wt is 74kg maybe dry is 75kg given transient Hypotension responsive to fluid.
-Now requiring HD
-Close monitoring of labs, telemetry, weight.
-GDMT with metoprolol succinate, isosorbide mononitrate, but Hydralazine stopped
-will place holding parameters on beta-adrian and Imdur, hold the morning of HD and retime to the afternoon if blood pressure supports
-No role for ACEI/ARB/ARNi/MRA/SGLT2i given renal function.
-remains on lasix
- HD per nephrology
ANDI on CKD
-Nephrology following
-hemodialysis per nephrology
Atrial fibrillation
-Persistent, currently in atrial fibrillation.
-Rate control with metoprolol.
-CHADS2-Vasc = 4 (CHF, Age x1, vascular disease, female gender).
-Therapeutic anticoagulation with apixaban.
Sacral decubitus ulcers
-Acute/chronic.
-Wound management.
Chronic Ischemic cardiomyopathy, LVEF = EF 35-40% with mild AI, moderate TR (TTE, 10/03/2024).
Chronic CAD, prior CABG (TRAORE to LAD, SVG to OM, SVG to RPDA).
Chronic complete Heart Block/Pacemaker
Occluded right subclavian vein
Subjective/Interval History:
Weight is down to 74kg. low bp this am.
DATA:
Right heart cath 11/14/2024:
CONCLUSION:
1. Right axillary/subclavian vein stenosis that will not permit passage of a 5 Nepali balloon wedge catheter.
2. Assuming that PAD = PCWP, severely elevated filling pressures (PAD = 32 mmHg).
3. Severe precapillary and postcapillary pulmonary hypertension (PA mean = 49 mmHg, PAD/PCWP = 32 mmHg, cardiac output = 3.17 L/min, PVR = 5.36 Rosario units).
4. Mixed picture, likely at least mildly impaired cardiac function (cardiac index = 1.65 L/min/m�, AVO2 difference <5.5 volume%).
TTE, 10/03/2024:
Normal LV size with moderately reduced systolic function. LVEF 35-40%.
Akinesis of the mid to distal septal wall and apex.
Right ventricle is moderately dilated with mildly reduced systolic function.
Mild mitral regurgitation
Mild to moderate aortic regurgitation.
Moderate tricuspid regurgitation. Estimated PASP 71 mmHg.
Compared to prior echocardiogram on 05/12/2023, there is no significant change.
CT Pelvis, 11/07/2024:
1. No findings at CT highly suspicious for osteomyelitis. There is chronic sacrococcygeal subluxation. Unchanged diffuse abnormally increased osseous sclerosis.
2. Small volume of ascites. Anasarca.
3. Moderate parastomal hernia. Small volume of ascites within the hernia.
4. Juan catheter in position. Mild diffuse urinary bladder wall thickening.
Physical Exam
Vital Signs/Labs
Vital Signs
Temp Pulse Resp BP Pulse Ox
97.9 F 61 16 97/35 99
11/28/24 07:10 11/28/24 07:10 11/28/24 07:10 11/28/24 07:10 11/28/24 07:10
11/27/24 11/28/24 11/29/24
06:59 06:59 06:59
Actual Weight 74.253 kg 74.134 kg
11/27/24 08:42
11/27/24 08:42
PT 19.5 Sec (11.4-14.6) H 11/14/24 05:38
INR 1.62 11/14/24 05:38
Magnesium 1.8 mg/dl (1.6-2.3) 11/23/24 05:48
11/02/24
13:05
Lro-L-Ukwchpkyrke Pept > [id number]
Physical Exam
Constitutional: No acute distress
Cardiovascular: JVD pressure is normal, Rhythm/rate is irregular and Pedal edema present (mild in the right leg trace in the left(this is an improvement))
Respiratory: Respiratory effort normal, Lungs clear to auscul., Wheeze Absent and Crackles Absent
Neuro/Psych: AO x 3
Data Reviewed
-
Date of Service: November 28, 2024
[2024-11-28] MEDS: TYLENOL 650 MG PO ×2 (08:38→21:49)
[2024-11-28] MEDS: NOVOLOG FLEXPEN 6 UNITS SC ×3 (08:39→18:00)
[2024-11-28] MEDS: NOVOLOG FLEXPEN-MODERATE RESISTANCE 1 UNITS SC (08:39)
--- NOTE | 2024-11-28 08:55 | W.PN.HOSP.TC ---
Today's Communication/Plan
-
Adjust medications of blood pressure today. Plan for HD tomorrow.
Assessment / Plan
Assessment / Plan
Physical exam:
General: Acute on chronically ill
HEENT: Normocephalic, Atraumatic and Moist Mucous Membranes
Respiratory: Clear to Auscultation; Negative Wheezes, Rales or Rhonchi
Cardiac: Irregular rate and rhythm and S1/S2
GI: Soft, Nontender and Nondistended
Musculoskeletal: Bilateral lower extremity edema. No Clubbing, No Cyanosis
Skin: Sacral and heel ulcers
Neuro: Awake, Alert and Oriented
Psych: Calm
A/P:
74 y/o female with CHB s/p PPM, persistent atrial fibrillation, CAD s/p CABG and ICMO admitted with weakness and fatigue, managed for decompensated HFrEF with ANDI. Also found to have severe decubitus ulcers without signs of OM on CT. Started on HD
on 11/22/24 with good fluid control. Now pending rehab with HD
#Acute on chronic HFrEF
#Elevated troponin due to non myocardial ischemic injury.
#Hx of AVB s/p PPM
#CAD s/p CABG
#Ischemic CM
#Persistent Afib
RHC on 11/14/24 - increased PCWP -status post diuresis and started on HD, ALso found R subclavian occlusion
GDMT limited by kidney function--> currently on beta-blockers.
On beta-blockers for rate control and Eliquis for anticoagulation
#ANDI on CKD 4 (cardiorenal)
Initiated on hemodialysis during this hospital stay
Nephro follows
Daily BMP
#Hypotension
Discontinued hydralazine and Lasix
Discussed with cardiology today on 11/28 and we agree that the less medications will be better for now and can reevaluate later down the road what medications to restart.
Monitor blood pressure
Assess the need for midodrine as well
#pancytopenia
Pancytopenia few years
Hematology consult--> real estate site analyst feels etiology multifactorial and workup in progress and probably will require bone marrow biopsy as outpatient. B12 and folate normal and kappa and lambda chain pending.
monitor
#Anemia most likely 2/2 CKD
monitor CBC
#Right axillary/subclavian vein stenosis
Outpatient VascSx
Will need CTA, now with advanced ANDI on CKD - high risk
Asymptomatic
#Stage IV left ischial pressure injury, present on admission
#Stage III sacral pressure injury, POA
CT without signs of OM
wound care
#Bleeding from ostomy
resolved after nitrate stick
#DM type 2 with nephropathy
Insulin SS, accuchecks, DM diet
#Anxiety/depression
#GERD
cont home meds
DVT ppx on eliquis
Full code
I have spent at least 51 min reviewing chart, test results, communication with consultants and direct patient care
Anticipated Discharge: > 48 hours
Subjective/Interval History
-
Date of Service: November 28, 2024
Patient complains of increased lower extremity edema. Not making much urine. Denies chest pain. No lightheadedness. Afebrile
Objective Data
-
Vital Signs:
Vital Signs
Temp Pulse Resp BP Pulse Ox
97.9 F 61 16 97/35 99
11/28/24 07:10 11/28/24 07:10 11/28/24 07:10 11/28/24 07:10 11/28/24 07:10
I&O
11/27/24 11/28/24 11/29/24
06:59 06:59 06:59
Intake Total 1020 / 1020 2230 / 2230
Output Total 450 / 450 450 / 450
Balance 570 / 570 1780 / 1780
--- NOTE | 2024-11-28 09:23 | W.PN.ONC2 ---
Today's Communication / Plan
-
No further inpatient recommendations -hematology will sign off, please reach out with any further questions or concerns
I reviewed that prior treatment with ABVD places pt at risk for secondary malignancy -OP follow up if would like to pursue additional work up for pancytopenia - I have added my office contact information to the discharge paperwork so that pt can
follow up if she chooses.
Impression
Impression
Pancytopenia. September SPEP/SHAYAN no monoclonal protein. FLC with elevated Bagley and lambda with normal ratio c/w inflammation/renal disease. No B12 or folate deficiency.
End-stage renal disease on dialysis
Decubitus ulcers chronic inflammation
Congestive heart failure
Atrial fibrillation
Diabetes mellitus
Ostomy
Hx hodgkins lymphoma treated with ABVD in her late 30s
Plan
Plan
Suspect waxing and waning cytopenias multifactorial
Bone marrow biopsy would be necessary to rule out myelodysplasia
Consider outpatient workup for NGS testing
Supportive measures as needed
Subjective/Objective
Subjective
no new complaints
Vital Signs:
Vital Signs
Temp Pulse Resp BP Pulse Ox
97.9 F 61 16 97/35 99
11/28/24 07:10 11/28/24 07:10 11/28/24 07:10 11/28/24 07:10 11/28/24 07:10
Lab Results:
Laboratory Data
WBC 4.2 10^3/uL (4.8-10.8) L 11/24/24 07:57
Hgb 9.3 g/dL (12.0-16.0) L 11/27/24 08:42
Plt Count 116 10^3/uL (130-400) L 11/24/24 07:57
PT 19.5 Sec (11.4-14.6) H 11/14/24 05:38
INR 1.62 11/14/24 05:38
eGFR 14.82 11/24/24 07:57
Physical Exam
General: No Apparent Distress
HEENT: Normocephalic and Anicteric
Chest wall: Dialysis catheter
Respiratory: diminished
Cardiac: Regular Rhythm
Ext: Edema
Skin: Warm and Dry
Neuro: AO x 3
--- NOTE | 2024-11-28 10:27 | W.PN.NEPH.PH ---
Today's Communication / Plan
-
Dialysis tomorrow
Orders provide
Midodrine support
Assessment/Plan
-
Assessment
CKD4 (2.6)
ANDI
Metabolic acidosis
diabetes mellitus type 2 with proteinuria
Heart failure reduced ejection fraction EF 30-35%
Paroxysmal atrial fibrillation
Ileostomy
Failure to thrive
Plan
HD tomorrow ( schedule)
Patient remains hypotensive, this is likely a function of poor LV function
Dry weight is likely established at 74 kg
We can use midodrine on dialysis to augment UF
await OP HD planning
-
-
Date of Service: November 28, 2024
CC / HPI / ROS
-
Chief Complaint:
Acute kidney injury
History of Present Illness:
HD initiated on 11/22
Hemodynamically labile
off jalloh
Dialysis now on Thursday schedule
Review of Systems:
on RA, no resting sob or cp
no n/v
Weight decreasing to 74 kg
Labs
-
Labs:
eGFR 14.82 11/24/24 07:57
Vfj-P-Prjzrmpdfau Pept > 10584 pg/ml 11/02/24 13:05
Albumin 3.6 g/dl (3.5-5.0) 11/24/24 07:57
Physical Exam
-
Vital Signs:
Vital Signs
Temp Pulse Resp BP Pulse Ox
97.9 F 61 16 97/35 99
11/28/24 07:10 11/28/24 07:10 11/28/24 07:10 11/28/24 07:10 11/28/24 07:10
Cardiovascular:: Regular rate and rhythm
Respiratory:: Bilateral: CTA
Lung Excursion:: Normal
Abdomen:: Nontender and Soft
Bowel Sounds:: Normal
Extremity Edema:: None: Bilateral:
[2024-11-28 12:26] LABS: Glucose - Point of Care 360 mg/dl (70-99)
[2024-11-28 12:40] LABS: % Basophils 0.5 % (0-2); % Eosinophils 3.3 % (0-6); % Immature Granulocytes 0.5 % (0-0.5); % Lymphocytes 10.7 % (20.5-51.1); % Monocytes 9.4 % (1.7-9.3); % Neutrophils 75.6 % (42.2-75.2); Absolute Eosinophils 0.2 10^3/uL (0-0.7); Absolute Lymphocytes 0.6 10^3/uL (1.2-3.4); Absolute Monocytes 0.5 10^3/uL (0.1-0.6); Absolute Neutrophils 4.2 10^3/uL (1.4-6.5); Hemoglobin 9.7 g/dL (12.0-16.0); Mean Corp Hgb Conc. 31.3 g/dL (33.0-37.0); Mean Corpuscular Hgb 29.8 pg (27.0-31.0); Mean Corpuscular Volume 95.4 fL (81.0-99.0); Mean Platelet Volume 11.2 fL (7.4-10.4); Nucleated Red Blood Cells % 0 %; Platelet Count 136 10^3/uL (130-400); Red Blood Cell Count 3.25 10^6/uL (4.20-5.40); Red Cell Dist. Width 15.3 % (11.5-14.5); White Blood Cell Count 5.5 10^3/uL (4.8-10.8)
[2024-11-28 12:54] LABS: Blood Urea Nitrogen 41 mg/dl (7-17); Calcium 9.2 mg/dl (8.4-10.2); Carbon Dioxide 27 mmol/L (22-30); Chloride 98 mmol/L (98-107); Estimated Creatinine Clearance 22 ml/min; Glucose 272 mg/dl (70-99); Potassium 4.4 mmol/L (3.5-5.1); Sodium 137 mmol/L (135-145); eGFR 23.24
[2024-11-28] MEDS: NOVOLOG FLEXPEN-MODERATE RESISTANCE 9 UNITS SC (13:27)
[2024-11-28 17:09] LABS: Glucose - Point of Care 252 mg/dl (70-99)
--- NOTE | 2024-11-28 17:12 | CM ---
Patient to get HD tomorrow. Still requiring acute care. Patient would like to return to [facility] however may need a facility that can accommodate HD. Will follow for indication.
Plan: Case management will follow and assist with discharge planning. SNF when stable. Will need to determine ongoing dialysis need.
[2024-11-28] MEDS: NOVOLOG FLEXPEN-MODERATE RESISTANCE 5 UNITS SC (18:03)
[2024-11-28 21:38] LABS: Glucose - Point of Care 167 mg/dl (70-99)
[2024-11-28] MEDS: REMERON 7.5 MG PO (21:44)
[2024-11-28] MEDS: LIPITOR 40 MG PO (21:44)
[2024-11-28] MEDS: LANTUS 0.14 UNITS SC (21:45)
[2024-11-29 03:00] VITALS: BP 112/56
[2024-11-29 06:00] VITALS: BMI 25.5
--- NOTE | 2024-11-29 06:35 | PTCARENOTE ---
Patient still continues to decline nursing changing her ostomy bag.
[2024-11-29] MEDS: VITAMIN B-12 1000 MCG PO (07:18)
[2024-11-29] MEDS: TOPROL XL PO (07:18)
[2024-11-29] MEDS: IMDUR (EXTENDED RELEASE) PO (07:19)
[2024-11-29] MEDS: ELIQUIS 5 MG PO ×2 (07:19→20:50)
[2024-11-29] MEDS: PROTONIX 40 MG PO (07:19)
[2024-11-29] MEDS: BUSPAR 5 MG PO ×2 (07:19→20:50)
[2024-11-29] MEDS: HYDROPHOR 1 APPLIC TOPICAL (07:20)
[2024-11-29] MEDS: ANTIFUNGAL CLEAR 1 APPLIC TOPICAL ×2 (07:20→20:49)
[2024-11-29 07:30] VITALS: BP 136/59
[2024-11-29 08:35] LABS: Glucose - Point of Care 168 mg/dl (70-99)
[2024-11-29] MEDS: NOVOLOG FLEXPEN 6 UNITS SC ×2 (08:36→17:02)
[2024-11-29] MEDS: NOVOLOG FLEXPEN-MODERATE RESISTANCE 1 UNITS SC (08:37)
--- NOTE | 2024-11-29 08:58 | W.PN.HOSP.TC ---
Addendum entered and electronically signed by Carlos Bermudez MD 11/29/24 17:35:
updated son over the phone today
Original Note:
Today's Communication/Plan
-
Hemodialysis today.
Assessment / Plan
Assessment / Plan
Physical exam:
General: Acute on chronically ill
HEENT: Normocephalic, Atraumatic and Moist Mucous Membranes
Respiratory: Clear to Auscultation; Negative Wheezes, Rales or Rhonchi
Cardiac: Irregular rate and rhythm and S1/S2
GI: Soft, Nontender and Nondistended
Musculoskeletal: Bilateral lower extremity edema. No Clubbing, No Cyanosis
Skin: Sacral and heel ulcers
Neuro: Awake, Alert and Oriented
Psych: Calm
A/P:
74 y/o female with CHB s/p PPM, persistent atrial fibrillation, CAD s/p CABG and ICMO admitted with weakness and fatigue, managed for decompensated HFrEF with ANDI. Also found to have severe decubitus ulcers without signs of OM on CT. Started on HD
on 11/22/24 with good fluid control. Now pending rehab with HD
#Acute on chronic HFrEF
#Elevated troponin due to non myocardial ischemic injury.
#Hx of AVB s/p PPM
#CAD s/p CABG
#Ischemic CM
#Persistent Afib
RHC on 11/14/24 - increased PCWP -status post diuresis and started on HD, ALso found R subclavian occlusion
GDMT limited by kidney function--> currently on beta-blockers.
On beta-blockers for rate control and Eliquis for anticoagulation
#ANDI on CKD 4 (cardiorenal)
Initiated on hemodialysis during this hospital stay
Nephro follows
Daily BMP
Plans to arrange for outpatient hemodialysis and once that is arranged then start planning discharge
#Hypotension
Discontinued hydralazine and Lasix
Discussed with cardiology today on 11/28 and we agree that the less medications will be better for now and can reevaluate later down the road what medications to restart.
Monitor blood pressure
Midodrine added by nephrology with HD
#pancytopenia
Pancytopenia few years
Hematology consult--> returned goods receiving clerk feels etiology multifactorial and workup in progress and probably will require bone marrow biopsy as outpatient. B12 and folate normal and kappa and lambda chain pending.
monitor
#Anemia most likely 2/2 CKD and as above
monitor CBC
#Right axillary/subclavian vein stenosis
Outpatient VascSx
Will need CTA, now with advanced ANDI on CKD - high risk
Asymptomatic
#Stage IV left ischial pressure injury, present on admission
#Stage III sacral pressure injury, POA
CT without signs of OM
wound care
#Bleeding from ostomy
resolved after nitrate stick
#DM type 2 with nephropathy
Insulin SS, accuchecks, DM diet
#Anxiety/depression
#GERD
cont home meds
DVT ppx on eliquis
Full code
Anticipated Discharge: > 48 hours
Subjective/Interval History
-
Date of Service: November 29, 2024
Patient denies chest pain or worsening shortness of breath today.
Objective Data
-
Labs:
Laboratory Results
11/29/24
08:09
WBC Pending
Hgb Pending
Hct Pending
Plt Count Pending
Sodium Pending
Potassium Pending
Chloride Pending
Carbon Dioxide Pending
BUN Pending
Creatinine Pending
Glucose Pending
Calcium Pending
Vital Signs:
Vital Signs
Temp Pulse Resp BP Pulse Ox
97.5 F 61 16 136/59 98
11/29/24 07:30 11/29/24 07:30 11/29/24 07:30 11/29/24 07:30 11/29/24 07:30
I&O
11/28/24 11/29/24 11/30/24
06:59 06:59 06:59
Intake Total 2230 / 2230 1140 / 1140
Output Total 450 / 450 70 / 70
Balance 1780 / 1780 1140 / 1140 -70 / -70
[2024-11-29 09:43] LABS: Hematocrit 30.9 % (37.0-47.0); Hemoglobin 9.8 g/dL (12.0-16.0); Mean Corp Hgb Conc. 31.7 g/dL (33.0-37.0); Mean Corpuscular Volume 94.5 fL (81.0-99.0); Mean Platelet Volume 11.1 fL (7.4-10.4); Platelet Count 122 10^3/uL (130-400); Red Blood Cell Count 3.27 10^6/uL (4.20-5.40); Red Cell Dist. Width 15.2 % (11.5-14.5); White Blood Cell Count 4.5 10^3/uL (4.8-10.8)
--- NOTE | 2024-11-29 09:59 | W.PN.CD ---
Today's Communication / Plan
-
continuue GDMT as bp allows, holding parameters placed
HD continue
d/c planning
I will sign off and see again at your request.
Impression / Plan
-
Background: 74 y/o female with CHB s/p PPM, persistent atrial fibrillation, CAD s/p CABG and ICMO admitted with decompensated HFrEF with ANDI, found to have severe decubitus ulcers.
HFrEF, acute on chronic
- echo 10/03/24 EF 35-40% mid to distal septal andapical AK, RV moderately dilated with mildly reduced LVF
-R heart cath 11/14/2024 at 80.4 kg: RA 20, PA 85/32. Assume PCWP close to PAD of 32 mmHg.
-Admit weight 88 kg now wt is 73.6kg
-Now requiring HD fo volume control
-GDMT is limited by BP, metoprolol succinate & isosorbide mononitrate with holding parameters, but Hydralazine stopped
hold the morning of HD and retime to the afternoon if blood pressure supports
-No role for ACEI/ARB/ARNi/MRA/SGLT2i given renal function.
-remains on lasix
- HD per nephrology
ANDI on CKD
-Nephrology following
-hemodialysis per nephrology
Atrial fibrillation
-Persistent, currently in atrial fibrillation with pacing
-Rate control with metoprolol.
-CHADS2-Vasc = 4 (CHF, Age x1, vascular disease, female gender).
-Therapeutic anticoagulation with apixaban.
Sacral decubitus ulcers
-Acute/chronic.
-Wound management.
Chronic Ischemic cardiomyopathy, LVEF = EF 35-40% with mild AI, moderate TR (TTE, 10/03/2024).
Chronic CAD, prior CABG (TRAORE to LAD, SVG to OM, SVG to RPDA).
Chronic complete Heart Block/Pacemaker
Occluded right subclavian vein
Subjective/Interval History:
she has no complaints
DATA:
Right heart cath 11/14/2024:
CONCLUSION:
1. Right axillary/subclavian vein stenosis that will not permit passage of a 5 Filipino balloon wedge catheter.
2. Assuming that PAD = PCWP, severely elevated filling pressures (PAD = 32 mmHg).
3. Severe precapillary and postcapillary pulmonary hypertension (PA mean = 49 mmHg, PAD/PCWP = 32 mmHg, cardiac output = 3.17 L/min, PVR = 5.36 Rosario units).
4. Mixed picture, likely at least mildly impaired cardiac function (cardiac index = 1.65 L/min/m�, AVO2 difference <5.5 volume%).
TTE, 10/03/2024:
Normal LV size with moderately reduced systolic function. LVEF 35-40%.
Akinesis of the mid to distal septal wall and apex.
Right ventricle is moderately dilated with mildly reduced systolic function.
Mild mitral regurgitation
Mild to moderate aortic regurgitation.
Moderate tricuspid regurgitation. Estimated PASP 71 mmHg.
Compared to prior echocardiogram on 05/12/2023, there is no significant change.
CT Pelvis, 11/07/2024:
1. No findings at CT highly suspicious for osteomyelitis. There is chronic sacrococcygeal subluxation. Unchanged diffuse abnormally increased osseous sclerosis.
2. Small volume of ascites. Anasarca.
3. Moderate parastomal hernia. Small volume of ascites within the hernia.
4. Juan catheter in position. Mild diffuse urinary bladder wall thickening.
Physical Exam
Vital Signs/Labs
Vital Signs
Temp Pulse Resp BP Pulse Ox
97.5 F 61 16 136/59 98
11/29/24 07:30 11/29/24 07:30 11/29/24 07:30 11/29/24 07:30 11/29/24 07:30
11/28/24 11/29/24 11/30/24
06:59 06:59 06:59
Actual Weight 73.663 kg
11/29/24 08:09
PT 19.5 Sec (11.4-14.6) H 11/14/24 05:38
INR 1.62 11/14/24 05:38
Magnesium 1.8 mg/dl (1.6-2.3) 11/23/24 05:48
11/02/24
13:05
Ovh-O-Nsuzwtnajky Pept > 30288
Physical Exam
Constitutional: No acute distress
Cardiovascular: Rhythm & rate is regular, Systolic murmur absent and Pedal edema present ( 1+ b/l)
Respiratory: Respiratory effort normal, Wheeze Absent, Rhonchi Absent and Crackles Present (bibasilar)
Neuro/Psych: AO x 3
Data Reviewed
-
Date of Service: November 29, 2024
EKG: Other (tele pacing)
[2024-11-29 10:25] LABS: Blood Urea Nitrogen 64 mg/dl (7-17); Calcium 9.3 mg/dl (8.4-10.2); Carbon Dioxide 24 mmol/L (22-30); Chloride 100 mmol/L (98-107); Estimated Creatinine Clearance 19 ml/min; Glucose 140 mg/dl (70-99); Potassium 4.6 mmol/L (3.5-5.1); Sodium 137 mmol/L (135-145); eGFR 19.02
[2024-11-29 11:30] VITALS: BP 126/50
--- NOTE | 2024-11-29 11:34 | W.PN.NEPH.PH ---
Today's Communication / Plan
-
Dialysis today pending
Assessment/Plan
-
Assessment
CKD4 (2.6)
ANDI
Metabolic acidosis
diabetes mellitus type 2 with proteinuria
Heart failure reduced ejection fraction EF 30-35%
Paroxysmal atrial fibrillation
Ileostomy
Failure to thrive
Plan
HD today ( schedule) with next treatment Thursday
chronic hypotensive, this is likely a function of poor LV function
Dry weight is likely established at 74 kg
We can use midodrine on dialysis to augment UF
await OP HD planning
-
-
Date of Service: November 29, 2024
CC / HPI / ROS
-
Chief Complaint:
Acute kidney injury
History of Present Illness:
HD initiated on 11/22
Hemodynamically labile
off jalloh
Dialysis now on Thursday schedule
Review of Systems:
on RA, no resting sob or cp
no n/v
Weight decreasing to 74 kg
Labs
-
Labs:
WBC 4.5 10^3/uL (4.8-10.8) L 11/29/24 08:09
RBC 3.27 10^6/uL (4.20-5.40) L 11/29/24 08:09
Hgb 9.8 g/dL (12.0-16.0) L 11/29/24 08:09
Hct 30.9 % (37.0-47.0) L 11/29/24 08:09
Plt Count 122 10^3/uL (130-400) L 11/29/24 08:09
Sodium 137 mmol/L (135-145) 11/29/24 08:09
Potassium 4.6 mmol/L (3.5-5.1) 11/29/24 08:09
Chloride 100 mmol/L (98-107) 11/29/24 08:09
Carbon Dioxide 24 mmol/L (22-30) 11/29/24 08:09
BUN 64 mg/dl (7-17) H 11/29/24 08:09
Creatinine 2.6 mg/dL (0.6-1.0) H 11/29/24 08:09
eGFR 19.02 11/29/24 08:09
Glucose 140 mg/dl (70-99) H 11/29/24 08:09
Calcium 9.3 mg/dl (8.4-10.2) 11/29/24 08:09
Avr-U-Rcbjnwbogef Pept > 78423 pg/ml 11/02/24 13:05
Albumin 3.6 g/dl (3.5-5.0) 11/24/24 07:57
Physical Exam
-
Vital Signs:
Vital Signs
Temp Pulse Resp BP Pulse Ox
97.5 F 61 16 136/59 98
11/29/24 07:30 11/29/24 07:30 11/29/24 07:30 11/29/24 07:30 11/29/24 07:30
Cardiovascular:: Regular rate and rhythm
Respiratory:: Bilateral: CTA
Lung Excursion:: Normal
Abdomen:: Nontender and Soft
Bowel Sounds:: Normal
Extremity Edema:: None: Bilateral:
[2024-11-29] MEDS: ProAmatine 2.5 MG PO (11:41)
[2024-11-29 11:43] LABS: Glucose - Point of Care 244 mg/dl (70-99)
[2024-11-29] MEDS: NOVOLOG FLEXPEN SC (13:31)
[2024-11-29] MEDS: RETACRIT 6000 UNITS IV (13:41)
[2024-11-29] MEDS: NOVOLOG FLEXPEN-MODERATE RESISTANCE 3 UNITS SC (13:48)
[2024-11-29 15:30] VITALS: BP 151/77
[2024-11-29] MEDS: HEPARIN 3500 UNITS INTRACATH (15:51)
[2024-11-29 16:35] LABS: Glucose - Point of Care 101 mg/dl (70-99)
[2024-11-29] MEDS: NOVOLOG FLEXPEN-MODERATE RESISTANCE SC (16:36)
[2024-11-29 19:39] VITALS: BP 114/43
[2024-11-29] MEDS: TYLENOL 650 MG PO (20:49)
[2024-11-29 21:23] LABS: Glucose - Point of Care 108 mg/dl (70-99)
[2024-11-29] MEDS: REMERON 7.5 MG PO (22:59)
[2024-11-29] MEDS: LANTUS 0.14 UNITS SC (22:59)
[2024-11-29] MEDS: LIPITOR 40 MG PO (22:59)
[2024-11-29 23:35] VITALS: BP 121/52
[2024-11-30 03:22] VITALS: BP 119/49
[2024-11-30 06:31] VITALS: BMI 25.6
[2024-11-30 07:00] VITALS: BP 132/61
[2024-11-30 08:14] LABS: Hemoglobin 10.1 g/dL (12.0-16.0); Mean Corp Hgb Conc. 31.6 g/dL (33.0-37.0); Mean Corpuscular Hgb 29.4 pg (27.0-31.0); Mean Platelet Volume 10.4 fL (7.4-10.4); Platelet Count 117 10^3/uL (130-400); Red Blood Cell Count 3.44 10^6/uL (4.20-5.40); Red Cell Dist. Width 15.2 % (11.5-14.5); White Blood Cell Count 4.1 10^3/uL (4.8-10.8)
[2024-11-30 08:21] LABS: Glucose - Point of Care 96 mg/dl (70-99)
[2024-11-30] MEDS: VITAMIN B-12 1000 MCG PO (08:44)
[2024-11-30] MEDS: PROTONIX 40 MG PO (08:44)
[2024-11-30] MEDS: ANTIFUNGAL CLEAR 1 APPLIC TOPICAL ×2 (08:44→19:31)
[2024-11-30] MEDS: IMDUR (EXTENDED RELEASE) 30 MG PO (08:44)
[2024-11-30] MEDS: ELIQUIS 5 MG PO ×2 (08:44→19:31)
[2024-11-30] MEDS: BUSPAR 5 MG PO ×2 (08:44→19:31)
[2024-11-30] MEDS: TOPROL XL 25 MG PO (08:44)
[2024-11-30] MEDS: HYDROPHOR 1 APPLIC TOPICAL (08:45)
[2024-11-30 09:03] LABS: Blood Urea Nitrogen 35 mg/dl (7-17); Carbon Dioxide 29 mmol/L (22-30); Chloride 99 mmol/L (98-107); Estimated Creatinine Clearance 26 ml/min; Glucose 96 mg/dl (70-99); Potassium 3.9 mmol/L (3.5-5.1); Sodium 136 mmol/L (135-145); eGFR 27.71
--- NOTE | 2024-11-30 09:53 | W.PN.HOSP.TC ---
Addendum entered and electronically signed by Carlos Bermudez MD 11/30/24 14:18:
Discussed with son yesterday
Original Note:
Today's Communication/Plan
-
Continue hemodialysis
Assessment / Plan
Assessment / Plan
Physical exam:
General: Acute on chronically ill
HEENT: Normocephalic, Atraumatic and Moist Mucous Membranes
Respiratory: Clear to Auscultation; Negative Wheezes, Rales or Rhonchi
Cardiac: Irregular rate and rhythm and S1/S2
GI: Soft, Nontender and Nondistended
Musculoskeletal: Bilateral lower extremity edema. No Clubbing, No Cyanosis
Skin: Sacral and heel ulcers
Neuro: Awake, Alert and Oriented
Psych: Calm
A/P:
74 y/o female with CHB s/p PPM, persistent atrial fibrillation, CAD s/p CABG and ICMO admitted with weakness and fatigue, managed for decompensated HFrEF with ANDI. Also found to have severe decubitus ulcers without signs of OM on CT. Started on HD
on 11/22/24 with good fluid control. Now pending rehab with HD
#Acute on chronic HFrEF
#Elevated troponin due to non myocardial ischemic injury.
#Hx of AVB s/p PPM
#CAD s/p CABG
#Ischemic CM
#Persistent Afib
RHC on 11/14/24 - increased PCWP -status post diuresis and started on HD, ALso found R subclavian occlusion
GDMT limited by kidney function--> currently on beta-blockers.
On beta-blockers for rate control and Eliquis for anticoagulation
#ANDI on CKD 4 (cardiorenal)
Initiated on hemodialysis during this hospital stay
Nephro follows
Daily BMP
Plans to arrange for outpatient hemodialysis and once that is arranged then start planning discharge
#Hypotension
Discontinued hydralazine and Lasix
Discussed with cardiology today on 11/28 and we agree that the less medications will be better for now and can reevaluate later down the road what medications to restart.
Monitor blood pressure
Midodrine added by nephrology with HD
#pancytopenia
Pancytopenia few years
Hematology consult--> plug making operator feels etiology multifactorial and workup in progress and probably will require bone marrow biopsy as outpatient. B12 and folate normal and kappa and lambda chain pending.
monitor
#Anemia most likely 2/2 CKD and as above
monitor CBC
#Right axillary/subclavian vein stenosis
Outpatient VascSx
Will need CTA, now with advanced ANDI on CKD - high risk
Asymptomatic
#Stage IV left ischial pressure injury, present on admission
#Stage III sacral pressure injury, POA
CT without signs of OM
wound care
#Bleeding from ostomy
resolved after nitrate stick
#DM type 2 with nephropathy
Insulin SS, accuchecks, DM diet
#Anxiety/depression
#GERD
cont home meds
DVT ppx on eliquis
Full code
Anticipated Discharge: > 48 hours
Subjective/Interval History
-
Date of Service: November 30, 2024
Patient denies worsening shortness of breath today. No chest pain
Objective Data
-
Labs:
Laboratory Results
11/30/24
07:44
WBC 4.1 L
Hgb 10.1 L
Hct 32.0 L
Plt Count 117 L
Sodium 136
Potassium 3.9
Chloride 99
Carbon Dioxide 29
BUN 35 H
Creatinine 1.9 H
Glucose 96
Calcium 9.0
Vital Signs:
Vital Signs
Temp Pulse Resp BP Pulse Ox
97.3 F 61 20 132/61 100
11/30/24 07:00 11/30/24 07:00 11/30/24 07:00 11/30/24 07:00 11/30/24 07:00
I&O
11/29/24 11/30/24 12/01/24
06:59 06:59 06:59
Intake Total 1140 / 1140 980 / 980
Output Total 420 / 420
Balance 1140 / 1140 560 / 560
[2024-11-30] MEDS: NOVOLOG FLEXPEN-MODERATE RESISTANCE SC (09:55)
[2024-11-30] MEDS: NOVOLOG FLEXPEN 6 UNITS SC ×3 (09:57→18:08)
[2024-11-30 11:00] VITALS: BP 125/50
--- NOTE | 2024-11-30 12:03 | W.PN.NEPH.PH ---
Today's Communication / Plan
-
No acute need for dialysis today with next treatment Thursday
Assessment/Plan
-
Assessment
CKD4 (2.6)
ANDI
Metabolic acidosis
diabetes mellitus type 2 with proteinuria
Heart failure reduced ejection fraction EF 30-35%
Paroxysmal atrial fibrillation
Ileostomy
Failure to thrive
Plan
Her last dialysis was 11/29 with next treatment planned for Thursday and will maintain a Thursday schedule for now
Dry weight is likely established at 74 kg
midodrine on dialysis to augment UF as indicated
await OP HD planning
see dialysis orders
No acute need for dialysis today
-
-
Date of Service: November 30, 2024
CC / HPI / ROS
-
Chief Complaint:
Acute kidney injury
History of Present Illness:
HD initiated on 11/22
Hemodynamically labile
off jalloh
Dialysis now on Thursday schedule
Review of Systems:
on RA, no resting sob or cp
no n/v
Weight decreasing to 74 kg
Labs
-
Labs:
WBC 4.1 10^3/uL (4.8-10.8) L 11/30/24 07:44
RBC 3.44 10^6/uL (4.20-5.40) L 11/30/24 07:44
Hgb 10.1 g/dL (12.0-16.0) L 11/30/24 07:44
Hct 32.0 % (37.0-47.0) L 11/30/24 07:44
Plt Count 117 10^3/uL (130-400) L 11/30/24 07:44
Sodium 136 mmol/L (135-145) 11/30/24 07:44
Potassium 3.9 mmol/L (3.5-5.1) 11/30/24 07:44
Chloride 99 mmol/L (98-107) 11/30/24 07:44
Carbon Dioxide 29 mmol/L (22-30) 11/30/24 07:44
BUN 35 mg/dl (7-17) H 11/30/24 07:44
Creatinine 1.9 mg/dL (0.6-1.0) H 11/30/24 07:44
eGFR 27.71 11/30/24 07:44
Glucose 96 mg/dl (70-99) 11/30/24 07:44
Calcium 9.0 mg/dl (8.4-10.2) 11/30/24 07:44
Mmz-B-Ogtbctosywi Pept > 67210 pg/ml 11/02/24 13:05
Albumin 3.6 g/dl (3.5-5.0) 11/24/24 07:57
Physical Exam
-
Vital Signs:
Vital Signs
Temp Pulse Resp BP Pulse Ox
97.3 F 61 20 132/61 100
11/30/24 07:00 11/30/24 07:00 11/30/24 07:00 11/30/24 07:00 11/30/24 07:00
Cardiovascular:: Regular rate and rhythm
Respiratory:: Bilateral: CTA
Lung Excursion:: Normal
Abdomen:: Nontender and Soft
Bowel Sounds:: Normal
Extremity Edema:: None: Bilateral:
[2024-11-30] MEDS: NOVOLOG FLEXPEN-MODERATE RESISTANCE 3 UNITS SC (13:45)
[2024-11-30 15:00] VITALS: BP 118/46
[2024-11-30] MEDS: NOVOLOG FLEXPEN-MODERATE RESISTANCE 1 UNITS SC (18:08)
[2024-11-30] MEDS: TYLENOL 650 MG PO (19:36)
[2024-11-30 19:39] VITALS: BP 114/84
[2024-11-30] MEDS: REMERON 7.5 MG PO (22:55)
[2024-11-30] MEDS: LANTUS 0.14 UNITS SC (22:55)
[2024-11-30] MEDS: LIPITOR 40 MG PO (22:56)
[2024-11-30 23:03] VITALS: BP 115/44
[2024-12-01 03:10] VITALS: BP 128/54
[2024-12-01 06:00] VITALS: BMI 25.5
[2024-12-01 07:10] VITALS: BP 141/60
--- NOTE | 2024-12-01 07:31 | W.PN.HOSP.TC ---
Today's Communication/Plan
-
Discharge planning.
Assessment / Plan
Assessment / Plan
Physical exam:
General: Acute on chronically ill
HEENT: Normocephalic, Atraumatic and Moist Mucous Membranes
Respiratory: Clear to Auscultation; Negative Wheezes, Rales or Rhonchi
Cardiac: Irregular rate and rhythm and S1/S2
GI: Soft, Nontender and Nondistended
Musculoskeletal: Bilateral lower extremity edema. No Clubbing, No Cyanosis
Skin: Sacral and heel ulcers
Neuro: Awake, Alert and Oriented
Psych: Calm
A/P:
74 y/o female with CHB s/p PPM, persistent atrial fibrillation, CAD s/p CABG and ICMO admitted with weakness and fatigue, managed for decompensated HFrEF with ANDI. Also found to have severe decubitus ulcers without signs of OM on CT. Started on HD
on 11/22/24 with good fluid control. Now pending rehab with HD
#Acute on chronic HFrEF
#Elevated troponin due to non myocardial ischemic injury.
#Hx of AVB s/p PPM
#CAD s/p CABG
#Ischemic CM
#Persistent Afib
RHC on 11/14/24 - increased PCWP -status post diuresis and started on HD, ALso found R subclavian occlusion
GDMT limited by kidney function--> currently on beta-blockers.
On beta-blockers for rate control and Eliquis for anticoagulation
#ANDI on CKD 4 (cardiorenal)
Initiated on hemodialysis during this hospital stay
Nephro follows
Daily BMP
Plans to arrange for outpatient hemodialysis and once that is arranged then start planning discharge
#Hypotension
Discontinued hydralazine and Lasix
Discussed with cardiology on 11/28 and we agree that the less medications will be better for now and can reevaluate later down the road what medications to restart.
Monitor blood pressure
Midodrine added by nephrology with HD
#pancytopenia
Pancytopenia few years
Hematology consult--> sole rougher feels etiology multifactorial and workup in progress and probably will require bone marrow biopsy as outpatient. B12 and folate normal and kappa and lambda chain pending.
monitor
#Anemia most likely 2/2 CKD and as above
monitor CBC
#Right axillary/subclavian vein stenosis
Outpatient VascSx
Will need CTA, now with advanced ANDI on CKD - high risk
Asymptomatic
#Stage IV left ischial pressure injury, present on admission
#Stage III sacral pressure injury, POA
CT without signs of OM
wound care
#Bleeding from ostomy
resolved after nitrate stick
#DM type 2 with nephropathy
Insulin SS, accuchecks, DM diet
#Anxiety/depression
#GERD
cont home meds
DVT ppx on eliquis
Full code
Anticipated Discharge: Within 24 hours
Subjective/Interval History
-
Date of Service: December 01, 2024
No new complaints. No chest pain or shortness of breath
Objective Data
-
Labs:
Laboratory Results
12/01/24
07:06
WBC Pending
Hgb Pending
Hct Pending
Plt Count Pending
Sodium Pending
Potassium Pending
Chloride Pending
Carbon Dioxide Pending
BUN Pending
Creatinine Pending
Glucose Pending
Calcium Pending
Vital Signs:
Vital Signs
Temp Pulse Resp BP Pulse Ox
97.4 F 61 20 128/54 100
12/01/24 03:10 12/01/24 03:10 12/01/24 03:10 12/01/24 03:10 12/01/24 03:10
I&O
11/30/24 12/01/24 12/02/24
06:59 06:59 06:59
Intake Total 980 / 980 480 / 480
Output Total 420 / 420 330 / 330
Balance 560 / 560 150 / 150
[2024-12-01 07:49] LABS: Hematocrit 32.6 % (37.0-47.0); Mean Corp Hgb Conc. 30.7 g/dL (33.0-37.0); Mean Corpuscular Hgb 29.1 pg (27.0-31.0); Mean Corpuscular Volume 94.8 fL (81.0-99.0); Mean Platelet Volume 10.8 fL (7.4-10.4); Platelet Count 108 10^3/uL (130-400); Red Blood Cell Count 3.44 10^6/uL (4.20-5.40); Red Cell Dist. Width 15.2 % (11.5-14.5)
[2024-12-01 08:12] LABS: Blood Urea Nitrogen 54 mg/dl (7-17); Calcium 9.3 mg/dl (8.4-10.2); Carbon Dioxide 27 mmol/L (22-30); Chloride 100 mmol/L (98-107); Estimated Creatinine Clearance 18 ml/min; Glucose 138 mg/dl (70-99); Potassium 4.5 mmol/L (3.5-5.1); Sodium 138 mmol/L (135-145)
[2024-12-01] MEDS: TOPROL XL 25 MG PO ×2 (09:30→09:31)
[2024-12-01] MEDS: ELIQUIS 5 MG PO ×2 (09:30→20:12)
[2024-12-01] MEDS: PROTONIX 40 MG PO (09:30)
[2024-12-01] MEDS: IMDUR (EXTENDED RELEASE) 30 MG PO (09:30)
[2024-12-01] MEDS: VITAMIN B-12 1000 MCG PO (09:31)
[2024-12-01] MEDS: BUSPAR 5 MG PO ×2 (09:36→20:12)
[2024-12-01] MEDS: ANTIFUNGAL CLEAR 1 APPLIC TOPICAL ×2 (09:38→20:12)
[2024-12-01] MEDS: HYDROPHOR 1 APPLIC TOPICAL (09:39)
[2024-12-01 09:41] LABS: Glucose - Point of Care 147 mg/dl (70-99)
[2024-12-01 09:41] LABS: Glucose - Point of Care 193 mg/dl (70-99)
[2024-12-01 09:41] LABS: Glucose - Point of Care 239 mg/dl (70-99)
[2024-12-01 09:41] LABS: Glucose - Point of Care 201 mg/dl (70-99)
[2024-12-01] MEDS: NOVOLOG FLEXPEN-MODERATE RESISTANCE SC (09:51)
--- NOTE | 2024-12-01 10:53 | W.PN.NEPH.PH ---
Today's Communication / Plan
-
HD tomorrow
Assessment/Plan
-
Assessment
CKD4 (2.6)
ANDI
Metabolic acidosis
diabetes mellitus type 2 with proteinuria
Heart failure reduced ejection fraction EF 30-35%
Paroxysmal atrial fibrillation
Ileostomy
Failure to thrive
Plan
HD tomorrow
await OP HD planning
-
-
Date of Service: December 01, 2024
CC / HPI / ROS
-
Chief Complaint:
Acute kidney injury
History of Present Illness:
HD initiated on 11/22
Hemodynamically labile
tolerated HD thursday
Review of Systems:
on RA, no resting sob or cp
no n/v
Labs
-
Labs:
WBC 4.0 10^3/uL (4.8-10.8) L 12/01/24 07:06
RBC 3.44 10^6/uL (4.20-5.40) L 12/01/24 07:06
Hgb 10.0 g/dL (12.0-16.0) L 12/01/24 07:06
Hct 32.6 % (37.0-47.0) L 12/01/24 07:06
Plt Count 108 10^3/uL (130-400) L 12/01/24 07:06
Sodium 138 mmol/L (135-145) 12/01/24 07:06
Potassium 4.5 mmol/L (3.5-5.1) 12/01/24 07:06
Chloride 100 mmol/L (98-107) 12/01/24 07:06
Carbon Dioxide 27 mmol/L (22-30) 12/01/24 07:06
BUN 54 mg/dl (7-17) H 12/01/24 07:06
Creatinine 2.8 mg/dL (0.6-1.0) H 12/01/24 07:06
eGFR 17.40 12/01/24 07:06
Glucose 138 mg/dl (70-99) H 12/01/24 07:06
Calcium 9.3 mg/dl (8.4-10.2) 12/01/24 07:06
Yub-F-Xnujpakkghe Pept > 31582 pg/ml 11/02/24 13:05
Albumin 3.6 g/dl (3.5-5.0) 11/24/24 07:57
Physical Exam
-
Vital Signs:
Vital Signs
Temp Pulse Resp BP Pulse Ox
97.4 F 61 17 141/60 98
12/01/24 07:10 12/01/24 09:30 12/01/24 07:10 12/01/24 09:30 12/01/24 07:10
Cardiovascular:: Regular rate and rhythm
Respiratory:: Bilateral: Coarse
Lung Excursion:: Normal
Abdomen:: Nontender and Soft
Bowel Sounds:: Normal
Extremity Edema:: None: Bilateral:
--- NOTE | 2024-12-01 10:58 | WOUNDNOTE ---
[facility] RN note: Patient's L ischial wound with large amount of ss drainage. Patient admits she lays on her L side more that her R. Instructed patient to avoid lying on her L side too often. Wound pink that can be visualized. Wound close to or to bone
(not new). She stated she's had a L ischial wound for 4 years. She stated she had seen a plastic surgeon in the past and she eventually may have surgical resection/repair of this wound. She reports a good appetite. Sacral ulcer shallow and pink.
Mild echo MASD. Patient incontinent of urine. Echo care given. Patient adamant about wearing a diaper despite education of how is causes moisture. R calf healing/newly healed blister with a couple small pink open areas. Silicone border foam
maintained. Bilateral dorsal foot scabs remain dry without drainage. Trace LE edema (R>L). Patient refusing Tubigrip. Colostomy appliance intact with some brown soft stool. Patient stated her pouch was changed yesterday. Heels off bed with pillow.
Protective foam applied on heels. Patient set up for breakfast. Discussed with RN Yovani and PCT Lamar. Patient for discharge once SNF bed available. Will follow as needed.
[2024-12-01 11:03] VITALS: BP 125/52
[2024-12-01] MEDS: NOVOLOG FLEXPEN SC (13:02)
[2024-12-01 13:09] LABS: Glucose - Point of Care 251 mg/dl (70-99)
[2024-12-01] MEDS: NOVOLOG FLEXPEN 6 UNITS SC ×2 (14:17→18:12)
[2024-12-01] MEDS: NOVOLOG FLEXPEN-MODERATE RESISTANCE 5 UNITS SC (14:18)
[2024-12-01 15:10] VITALS: BP 125/53
[2024-12-01 17:52] LABS: Glucose - Point of Care 223 mg/dl (70-99)
[2024-12-01] MEDS: NOVOLOG FLEXPEN-MODERATE RESISTANCE 3 UNITS SC (18:13)
[2024-12-01 19:00] VITALS: BP 122/53
[2024-12-01 21:17] LABS: Glucose - Point of Care 153 mg/dl (70-99)
[2024-12-01] MEDS: LIPITOR 40 MG PO (21:37)
[2024-12-01] MEDS: LANTUS 0.14 UNITS SC (21:37)
[2024-12-01] MEDS: REMERON 7.5 MG PO (21:40)
[2024-12-01 23:00] VITALS: BP 112/46
[2024-12-02 03:00] VITALS: BP 118/51
[2024-12-02 06:00] VITALS: BMI 25.8
[2024-12-02 07:10] VITALS: BP 135/58
[2024-12-02 08:00] LABS: Glucose - Point of Care 119 mg/dl (70-99)
--- NOTE | 2024-12-02 09:01 | CM ---
Addendum entered by Mabel Hall 12/02/24 15:03:
CM spoke with patient's primary contact/Son via phone; discussed previous conversation with patient (onsite HD @ SNF vs. SNF w/ Outpatient HD)
onsite HD @ SNF is son's preference
[facility] can accept patient; requested updated clinicals/HD flowsheets be faxed to #[phone]
Spoke with [facility]; they will get back to if they can accept patient
Plan: Dischage on Thursday to SNF w/ onsite HD support pending bed availability
Addendum entered by Mabel Hall 12/02/24 12:13:
Met with patient at bedside; reported that she does not need a SNF w/ HD on site; requested that CM speak with her son.
CM left a Voice Mail for son to call to discuss SNF options and site preference
Addendum entered by Mabel Hall 12/02/24 09:11:
Per Attending, Plan is discharge on Thursday
Original Note:
Chart Reviewed: patient scheduled for HD treatment today
CM sent updated Clinicals via [facility] to [facility] for SNF w/ HD placement
Requested a bed for this weekend if patient is stable
Plan: Discharge to [facility] facility with onsite HD services when medically stable pending bed availability
[2024-12-02] MEDS: NOVOLOG FLEXPEN-MODERATE RESISTANCE SC (09:56)
[2024-12-02] MEDS: VITAMIN B-12 1000 MCG PO (09:56)
[2024-12-02] MEDS: PROTONIX 40 MG PO (09:57)
[2024-12-02] MEDS: BUSPAR 5 MG PO ×2 (09:57→20:51)
[2024-12-02] MEDS: ANTIFUNGAL CLEAR 1 APPLIC TOPICAL ×2 (10:00→20:52)
[2024-12-02] MEDS: HYDROPHOR 1 APPLIC TOPICAL (10:02)
--- NOTE | 2024-12-02 10:17 | W.PN.HOSP.TC ---
Today's Communication/Plan
-
Discharge planning in progress
Assessment / Plan
Assessment / Plan
Physical exam:
General: Acute on chronically ill
HEENT: Normocephalic, Atraumatic and Moist Mucous Membranes
Respiratory: Clear to Auscultation; Negative Wheezes, Rales or Rhonchi
Cardiac: Irregular rate and rhythm and S1/S2
GI: Soft, Nontender and Nondistended
Musculoskeletal: Bilateral lower extremity edema. No Clubbing, No Cyanosis
Skin: Sacral and heel ulcers
Neuro: Awake, Alert and Oriented
Psych: Calm
A/P:
74 y/o female with CHB s/p PPM, persistent atrial fibrillation, CAD s/p CABG and ICMO admitted with weakness and fatigue, managed for decompensated HFrEF with ANDI. Also found to have severe decubitus ulcers without signs of OM on CT. Started on HD
on 11/22/24 with good fluid control. Now pending rehab with HD
#Acute on chronic HFrEF
#Elevated troponin due to non myocardial ischemic injury.
#Hx of AVB s/p PPM
#CAD s/p CABG
#Ischemic CM
#Persistent Afib
RHC on 11/14/24 - increased PCWP -status post diuresis and started on HD, ALso found R subclavian occlusion
GDMT limited by kidney function--> currently on beta-blockers.
On beta-blockers for rate control and Eliquis for anticoagulation
#ANDI on CKD 4 (cardiorenal)
Initiated on hemodialysis during this hospital stay
Nephro follows
Daily BMP
Plans to arrange for outpatient hemodialysis and once that is arranged then start planning discharge
#Hypotension
Discontinued hydralazine and Lasix
Discussed with cardiology on 11/28 and we agree that the less medications will be better for now and can reevaluate later down the road what medications to restart.
Monitor blood pressure
Midodrine added by nephrology with HD
#pancytopenia
Pancytopenia few years
Hematology consult--> branch chief feels etiology multifactorial and workup in progress and probably will require bone marrow biopsy as outpatient. B12 and folate normal and kappa and lambda chain pending.
monitor
#Anemia most likely 2/2 CKD and as above
monitor CBC
#Right axillary/subclavian vein stenosis
Outpatient VascSx
Will need CTA, now with advanced ANDI on CKD - high risk
Asymptomatic
#Stage IV left ischial pressure injury, present on admission
#Stage III sacral pressure injury, POA
CT without signs of OM
wound care
#Bleeding from ostomy
resolved after nitrate stick
#DM type 2 with nephropathy
Insulin SS, accuchecks, DM diet
#Anxiety/depression
#GERD
cont home meds
DVT ppx on eliquis
Full code
Anticipated Discharge: > 48 hours
Subjective/Interval History
-
Date of Service: December 02, 2024
No new complaints
Objective Data
-
Labs:
Laboratory Results
12/02/24
07:00
Hgb Pending
Hct Pending
Sodium Pending
Potassium Pending
Chloride Pending
Carbon Dioxide Pending
Vital Signs:
Vital Signs
Temp Pulse Resp BP Pulse Ox
97.4 F 61 17 135/58 98
12/02/24 07:10 12/02/24 07:10 12/02/24 07:10 12/02/24 07:10 12/02/24 07:10
I&O
12/01/24 12/02/24 12/03/24
06:59 06:59 06:59
Intake Total 480 / 480 1500 / 1500
Output Total 330 / 330 470 / 470
Balance 150 / 150 1030 / 1030
[2024-12-02 12:19] LABS: Glucose - Point of Care 212 mg/dl (70-99)
[2024-12-02 13:05] LABS: Hematocrit 28.3 % (37.0-47.0); Hemoglobin 8.9 g/dL (12.0-16.0)
[2024-12-02 13:37] LABS: Carbon Dioxide 25 mmol/L (22-30); Chloride 99 mmol/L (98-107); Potassium 5.5 mmol/L (3.5-5.1); Sodium 134 mmol/L (135-145)
[2024-12-02] MEDS: NOVOLOG FLEXPEN SC (14:11)
[2024-12-02] MEDS: NOVOLOG FLEXPEN-MODERATE RESISTANCE 3 UNITS SC (14:12)
[2024-12-02] MEDS: NOVOLOG FLEXPEN 6 UNITS SC ×2 (14:12→19:50)
[2024-12-02 15:10] VITALS: BP 140/66
[2024-12-02] MEDS: RETACRIT 6000 UNITS IV (15:37)
--- NOTE | 2024-12-02 16:26 | W.PN.NEPH.HD ---
Assessment
-
pt seen during HD
vitals stable
CVC functions fine
likely d/c soon to [facility]
Progress Note - Hemodialysis
-
Date of Service: December 02, 2024
Duration: 30 minutes and 3 hours
Potassium Bath: 3
Calcium Bath: 2.5
Opti-Dialyzer: 160
Ultrafiltration: Other (1kg)
Blood Flow: 400
Dialysate Flow: 600
Heparin: no
EPO: 6000
[2024-12-02 16:54] LABS: Glucose - Point of Care 174 mg/dl (70-99)
[2024-12-02] MEDS: HEPARIN 4000 UNITS INTRACATH (18:38)
[2024-12-02 19:00] VITALS: BP 134/53
[2024-12-02] MEDS: ELIQUIS PO (19:49)
[2024-12-02] MEDS: IMDUR (EXTENDED RELEASE) PO (19:49)
[2024-12-02] MEDS: NOVOLOG FLEXPEN-MODERATE RESISTANCE 1 UNITS SC (19:50)
[2024-12-02] MEDS: ELIQUIS 5 MG PO (20:51)
[2024-12-02 21:19] LABS: Glucose - Point of Care 198 mg/dl (70-99)
[2024-12-02 23:00] VITALS: BP 128/52
[2024-12-02] MEDS: LANTUS 0.14 UNITS SC (23:06)
[2024-12-02] MEDS: LIPITOR 40 MG PO (23:06)
[2024-12-02] MEDS: REMERON 7.5 MG PO (23:06)
[2024-12-03] MEDS: TYLENOL 650 MG PO (00:05)
[2024-12-03 03:00] VITALS: BP 128/58
[2024-12-03 06:00] VITALS: BMI 25.9
[2024-12-03 07:51] VITALS: BP 129/60
[2024-12-03 08:35] LABS: Hematocrit 29.8 % (37.0-47.0); Hemoglobin 9.4 g/dL (12.0-16.0)
[2024-12-03 08:45] LABS: Glucose - Point of Care 130 mg/dl (70-99)
[2024-12-03] MEDS: NOVOLOG FLEXPEN-MODERATE RESISTANCE SC (09:08)
[2024-12-03 09:40] LABS: Carbon Dioxide 26 mmol/L (22-30); Chloride 98 mmol/L (98-107); Sodium 135 mmol/L (135-145)
--- NOTE | 2024-12-03 09:44 | W.PN.HOSP.TC ---
Today's Communication/Plan
-
Hemodialysis and discharge planning in progress
Assessment / Plan
Assessment / Plan
Physical exam:
General: Acute on chronically ill
HEENT: Normocephalic, Atraumatic and Moist Mucous Membranes
Respiratory: Clear to Auscultation; Negative Wheezes, Rales or Rhonchi
Cardiac: Irregular rate and rhythm and S1/S2
GI: Soft, Nontender and Nondistended
Musculoskeletal: Bilateral lower extremity edema. No Clubbing, No Cyanosis
Skin: Sacral and heel ulcers
Neuro: Awake, Alert and Oriented
Psych: Calm
A/P:
74 y/o female with CHB s/p PPM, persistent atrial fibrillation, CAD s/p CABG and ICMO admitted with weakness and fatigue, managed for decompensated HFrEF with ANDI. Also found to have severe decubitus ulcers without signs of OM on CT. Started on HD
on 11/22/24 with good fluid control. Now pending rehab with HD
#Acute on chronic HFrEF
#Elevated troponin due to non myocardial ischemic injury.
#Hx of AVB s/p PPM
#CAD s/p CABG
#Ischemic CM
#Persistent Afib
RHC on 11/14/24 - increased PCWP -status post diuresis and started on HD, ALso found R subclavian occlusion
GDMT limited by kidney function--> currently on beta-blockers.
On beta-blockers for rate control and Eliquis for anticoagulation
#ANDI on CKD 4 (cardiorenal)
Initiated on hemodialysis during this hospital stay
Nephro follows
Daily electrolytes
Plans to arrange for outpatient hemodialysis and once that is arranged then start planning discharge
#Hypotension
Improved
Discontinued hydralazine and Lasix
Discussed with cardiology on 11/28 and we agree that the less medications will be better for now and can reevaluate later down the road what medications to restart.
Monitor blood pressure
Midodrine added by nephrology with HD
#pancytopenia
Pancytopenia few years
Hematology consult--> field horticultural specialty grower feels etiology multifactorial and workup in progress and probably will require bone marrow biopsy as outpatient. B12 and folate normal and kappa and lambda chain pending.
monitor
#Anemia most likely 2/2 CKD and as above
monitor H&H
#Right axillary/subclavian vein stenosis
Outpatient VascSx
Will need CTA, now with advanced ANDI on CKD - high risk
Asymptomatic
#Stage IV left ischial pressure injury, present on admission
#Stage III sacral pressure injury, POA
CT without signs of OM
wound care
#Bleeding from ostomy
resolved after nitrate stick
#DM type 2 with nephropathy
Insulin SS, accuchecks, DM diet
#Anxiety/depression
#GERD
cont home meds
DVT ppx on eliquis
Full code
Anticipated Discharge: > 48 hours
Subjective/Interval History
-
Date of Service: December 03, 2024
Patient does not voice any new complaints.
Objective Data
-
Labs:
Laboratory Results
12/03/24
07:07
Hgb 9.4 L
Hct 29.8 L
Sodium 135
Potassium 4.0 D
Chloride 98
Carbon Dioxide 26
Vital Signs:
Vital Signs
Temp Pulse Resp BP Pulse Ox
98.1 F 62 16 129/60 97
12/03/24 07:51 12/03/24 07:51 12/03/24 07:51 12/03/24 07:51 12/03/24 07:51
I&O
12/02/24 12/03/24 12/04/24
06:59 06:59 06:59
Intake Total 1500 / 1500 1260 / 1260
Output Total 470 / 470 70 / 70
Balance 1030 / 1030 1190 / 1190
[2024-12-03] MEDS: NOVOLOG FLEXPEN SC (10:58)
[2024-12-03] MEDS: BUSPAR 5 MG PO ×2 (11:01→21:49)
[2024-12-03] MEDS: ANTIFUNGAL CLEAR 1 APPLIC TOPICAL ×2 (11:01→21:50)
[2024-12-03] MEDS: VITAMIN B-12 1000 MCG PO (11:01)
[2024-12-03] MEDS: ELIQUIS 5 MG PO ×2 (11:01→21:49)
[2024-12-03] MEDS: PROTONIX 40 MG PO (11:01)
[2024-12-03] MEDS: IMDUR (EXTENDED RELEASE) 30 MG PO (11:02)
[2024-12-03] MEDS: TOPROL XL 25 MG PO (11:02)
[2024-12-03] MEDS: HYDROPHOR 1 APPLIC TOPICAL (11:03)
[2024-12-03 13:10] VITALS: BP 132/57
[2024-12-03 14:08] LABS: Glucose - Point of Care 228 mg/dl (70-99)
[2024-12-03] MEDS: NOVOLOG FLEXPEN-MODERATE RESISTANCE 3 UNITS SC ×2 (14:11→17:37)
[2024-12-03] MEDS: NOVOLOG FLEXPEN 6 UNITS SC ×2 (14:12→17:37)
[2024-12-03 15:43] VITALS: BP 119/68
--- NOTE | 2024-12-03 16:49 | W.PN.NEPH.PH ---
Today's Communication / Plan
-
HD thursday if still here
Assessment/Plan
-
Assessment
CKD4 (2.6)
ANDI
Metabolic acidosis
diabetes mellitus type 2 with proteinuria
Heart failure reduced ejection fraction EF 30-35%
Paroxysmal atrial fibrillation
Ileostomy
Failure to thrive
Plan
HD Thursday
await OP HD planning
BP stable
-
-
Date of Service: December 03, 2024
CC / HPI / ROS
-
Chief Complaint:
Acute kidney injury
History of Present Illness:
HD initiated on 11/22
Hemodynamically stable
wt relatively stable
Review of Systems:
on RA, no resting sob or cp
no n/v
Labs
-
Labs:
WBC 4.0 10^3/uL (4.8-10.8) L 12/01/24 07:06
RBC 3.44 10^6/uL (4.20-5.40) L 12/01/24 07:06
Hgb 9.4 g/dL (12.0-16.0) L 12/03/24 07:07
Hct 29.8 % (37.0-47.0) L 12/03/24 07:07
Plt Count 108 10^3/uL (130-400) L 12/01/24 07:06
Sodium 135 mmol/L (135-145) 12/03/24 07:07
Potassium 4.0 mmol/L (3.5-5.1) D 12/03/24 07:07
Chloride 98 mmol/L (98-107) 12/03/24 07:07
Carbon Dioxide 26 mmol/L (22-30) 12/03/24 07:07
BUN 54 mg/dl (7-17) H 12/01/24 07:06
Creatinine 2.8 mg/dL (0.6-1.0) H 12/01/24 07:06
eGFR 17.40 12/01/24 07:06
Glucose 138 mg/dl (70-99) H 12/01/24 07:06
Calcium 9.3 mg/dl (8.4-10.2) 12/01/24 07:06
Xis-P-Vmaqksxduya Pept > 65729 pg/ml 11/02/24 13:05
Albumin 3.6 g/dl (3.5-5.0) 11/24/24 07:57
Physical Exam
-
Vital Signs:
Vital Signs
Temp Pulse Resp BP Pulse Ox
97.8 F 62 16 119/68 95
12/03/24 15:43 12/03/24 15:43 12/03/24 15:43 12/03/24 15:43 12/03/24 15:43
Cardiovascular:: Regular rate and rhythm
Respiratory:: Bilateral: Rales
Lung Excursion:: Normal
Abdomen:: Nontender and Soft
Extremity Edema:: +1: Bilateral:
Juan Catheter: No
[2024-12-03 17:04] LABS: Glucose - Point of Care 225 mg/dl (70-99)
[2024-12-03] MEDS: LIPITOR 40 MG PO (21:49)
[2024-12-03] MEDS: REMERON 7.5 MG PO (21:49)
[2024-12-03] MEDS: LANTUS 0.14 UNITS SC (21:49)
[2024-12-03 22:06] LABS: Glucose - Point of Care 136 mg/dl (70-99)
[2024-12-03 23:30] VITALS: BP 108/48
[2024-12-04 05:40] VITALS: BMI 25.6
[2024-12-04 06:42] LABS: Hematocrit 29.6 % (37.0-47.0); Hemoglobin 9.4 g/dL (12.0-16.0)
[2024-12-04 07:08] LABS: Carbon Dioxide 30 mmol/L (22-30); Chloride 96 mmol/L (98-107); Potassium 4.6 mmol/L (3.5-5.1); Sodium 135 mmol/L (135-145)
[2024-12-04 08:09] LABS: Glucose - Point of Care 150 mg/dl (70-99)
--- NOTE | 2024-12-04 08:27 | W.PN.HOSP.TC ---
Today's Communication/Plan
-
Plan for HD tomorrow. Discharge planning in progress
Assessment / Plan
Assessment / Plan
Physical exam:
General: Acute on chronically ill
HEENT: Normocephalic, Atraumatic and Moist Mucous Membranes
Respiratory: Clear to Auscultation; Negative Wheezes, Rales or Rhonchi
Cardiac: Irregular rate and rhythm and S1/S2
GI: Soft, Nontender and Nondistended
Musculoskeletal: Bilateral lower extremity edema. No Clubbing, No Cyanosis
Skin: Sacral and heel ulcers
Neuro: Awake, Alert and Oriented
Psych: Calm
A/P:
74 y/o female with CHB s/p PPM, persistent atrial fibrillation, CAD s/p CABG and ICMO admitted with weakness and fatigue, managed for decompensated HFrEF with ANDI. Also found to have severe decubitus ulcers without signs of OM on CT. Started on HD
on 11/22/24 with good fluid control. Now pending rehab with HD
#Acute on chronic HFrEF
#Elevated troponin due to non myocardial ischemic injury.
#Hx of AVB s/p PPM
#CAD s/p CABG
#Ischemic CM
#Persistent Afib
RHC on 11/14/24 - increased PCWP -status post diuresis and started on HD, ALso found R subclavian occlusion
GDMT limited by kidney function--> currently on beta-blockers.
On beta-blockers for rate control and Eliquis for anticoagulation
#ANDI on CKD 4 (cardiorenal)
Initiated on hemodialysis during this hospital stay
Nephro follows
Daily electrolytes
Plans to arrange for outpatient hemodialysis and once that is arranged then start planning discharge
#Hypotension
Improved
Discontinued hydralazine and Lasix
Discussed with cardiology on 11/28 and we agree that the less medications will be better for now and can reevaluate later down the road what medications to restart.
Monitor blood pressure
Midodrine added by nephrology with HD
#pancytopenia
Pancytopenia few years
Hematology consult--> label fuser tender feels etiology multifactorial and workup in progress and probably will require bone marrow biopsy as outpatient. B12 and folate normal and kappa and lambda chain pending.
monitor
#Anemia most likely 2/2 CKD and as above
monitor H&H
#Right axillary/subclavian vein stenosis
Outpatient VascSx
Will need CTA, now with advanced ANDI on CKD - high risk
Asymptomatic
#Stage IV left ischial pressure injury, present on admission
#Stage III sacral pressure injury, POA
CT without signs of OM
wound care
#Bleeding from ostomy
resolved after nitrate stick
#DM type 2 with nephropathy
Insulin SS, accuchecks, DM diet
#Anxiety/depression
#GERD
cont home meds
DVT ppx on eliquis
Full code
Anticipated Discharge: 24 - 48 hours
Subjective/Interval History
-
Date of Service: December 04, 2024
Does not voice any new complaints today.
Objective Data
-
Labs:
Laboratory Results
12/04/24
06:25
Hgb 9.4 L
Hct 29.6 L
Sodium 135
Potassium 4.6
Chloride 96 L
Carbon Dioxide 30
Vital Signs:
Vital Signs
Temp Pulse Resp BP Pulse Ox
97.4 F 63 16 108/48 98
12/03/24 23:30 12/03/24 23:30 12/03/24 23:30 12/03/24 23:30 12/03/24 23:30
I&O
12/03/24 12/04/24 12/05/24
06:59 06:59 06:59
Intake Total 1260 / 1260 360 / 360
Output Total 70 / 70
Balance 1190 / 1190 360 / 360
[2024-12-04 08:46] VITALS: BP 125/62
[2024-12-04] MEDS: PROTONIX 40 MG PO (10:27)
[2024-12-04] MEDS: VITAMIN B-12 1000 MCG PO (10:27)
[2024-12-04] MEDS: ELIQUIS 5 MG PO ×2 (10:27→21:53)
[2024-12-04] MEDS: BUSPAR 5 MG PO ×2 (10:27→21:54)
[2024-12-04] MEDS: TOPROL XL 25 MG PO (10:27)
[2024-12-04] MEDS: IMDUR (EXTENDED RELEASE) 30 MG PO (10:27)
[2024-12-04] MEDS: HYDROPHOR 1 APPLIC TOPICAL (10:28)
[2024-12-04] MEDS: NOVOLOG FLEXPEN-MODERATE RESISTANCE 1 UNITS SC (10:30)
[2024-12-04] MEDS: NOVOLOG FLEXPEN 6 UNITS SC ×3 (10:31→17:45)
[2024-12-04] MEDS: ANTIFUNGAL CLEAR 1 APPLIC TOPICAL ×2 (10:32→21:55)
[2024-12-04 13:00] LABS: Glucose - Point of Care 203 mg/dl (70-99)
[2024-12-04] MEDS: NOVOLOG FLEXPEN-MODERATE RESISTANCE 3 UNITS SC (14:12)
[2024-12-04 15:00] VITALS: BP 130/46
--- NOTE | 2024-12-04 16:12 | W.PN.NEPH.PH ---
Today's Communication / Plan
-
HD tomorrow
Assessment/Plan
-
Assessment
CKD4 (2.6)
ANDI
Metabolic acidosis
diabetes mellitus type 2 with proteinuria
Heart failure reduced ejection fraction EF 30-35%
Paroxysmal atrial fibrillation
Ileostomy
Failure to thrive
Plan
HD Thursday
await OP HD planning
BP stable
-
-
Date of Service: December 04, 2024
CC / HPI / ROS
-
Chief Complaint:
Acute kidney injury
History of Present Illness:
HD initiated on 11/22
Hemodynamically stable
wt relatively stable
Review of Systems:
on RA, no resting sob or cp
no n/v
Labs
-
Labs:
WBC 4.0 10^3/uL (4.8-10.8) L 12/01/24 07:06
RBC 3.44 10^6/uL (4.20-5.40) L 12/01/24 07:06
Hgb 9.4 g/dL (12.0-16.0) L 12/04/24 06:25
Hct 29.6 % (37.0-47.0) L 12/04/24 06:25
Plt Count 108 10^3/uL (130-400) L 12/01/24 07:06
Sodium 135 mmol/L (135-145) 12/04/24 06:25
Potassium 4.6 mmol/L (3.5-5.1) 12/04/24 06:25
Chloride 96 mmol/L (98-107) L 12/04/24 06:25
Carbon Dioxide 30 mmol/L (22-30) 12/04/24 06:25
BUN 54 mg/dl (7-17) H 12/01/24 07:06
Creatinine 2.8 mg/dL (0.6-1.0) H 12/01/24 07:06
eGFR 17.40 12/01/24 07:06
Glucose 138 mg/dl (70-99) H 12/01/24 07:06
Calcium 9.3 mg/dl (8.4-10.2) 12/01/24 07:06
Bls-Q-Mywenbhbgju Pept > 34497 pg/ml 11/02/24 13:05
Albumin 3.6 g/dl (3.5-5.0) 11/24/24 07:57
Physical Exam
-
Vital Signs:
Vital Signs
Temp Pulse Resp BP Pulse Ox
98.1 F 61 16 130/46 96
12/04/24 15:00 12/04/24 15:00 12/04/24 15:00 12/04/24 15:00 12/04/24 15:00
Cardiovascular:: Regular rate and rhythm
Respiratory:: Bilateral: CTA (decreased, anteriorly)
Lung Excursion:: Normal
Abdomen:: Nontender and Soft
Extremity Edema:: +1: Bilateral:
Juan Catheter: No
[2024-12-04 17:07] LABS: Glucose - Point of Care 269 mg/dl (70-99)
[2024-12-04] MEDS: NOVOLOG FLEXPEN-MODERATE RESISTANCE 5 UNITS SC (17:45)
[2024-12-04 21:34] LABS: Glucose - Point of Care 136 mg/dl (70-99)
[2024-12-04] MEDS: LIPITOR 40 MG PO (21:53)
[2024-12-04] MEDS: LANTUS 0.14 UNITS SC (21:54)
[2024-12-04] MEDS: REMERON 7.5 MG PO (21:54)
--- NOTE | 2024-12-04 22:00 | PTCARENOTE ---
This RN offered to change ostomy appliance for patient, noting that it was last changed on 11/29/24. Patient stated 'I do not want you to change it. At home, I change it every 10 days. It is fine how it is.' Care ongoing.
[2024-12-04 23:10] VITALS: BP 115/51
[2024-12-05] MEDS: TYLENOL 650 MG PO (02:01)
[2024-12-05 06:00] VITALS: BMI 25.8
[2024-12-05 07:25] VITALS: BP 117/53
[2024-12-05 08:12] LABS: Glucose - Point of Care 97 mg/dl (70-99)
[2024-12-05 08:15] LABS: % Basophils 0.5 % (0-2); % Immature Granulocytes 0.3 % (0-0.5); % Lymphocytes 11.5 % (20.5-51.1); % Monocytes 11.7 % (1.7-9.3); Absolute Eosinophils 0.1 10^3/uL (0-0.7); Absolute Lymphocytes 0.5 10^3/uL (1.2-3.4); Absolute Monocytes 0.5 10^3/uL (0.1-0.6); Absolute Neutrophils 2.9 10^3/uL (1.4-6.5); Hematocrit 28.2 % (37.0-47.0); Mean Corp Hgb Conc. 31.9 g/dL (33.0-37.0); Mean Corpuscular Hgb 29.6 pg (27.0-31.0); Mean Corpuscular Volume 92.8 fL (81.0-99.0); Mean Platelet Volume 10.9 fL (7.4-10.4); Nucleated Red Blood Cells % 0 %; Platelet Count 92 10^3/uL (130-400); Red Blood Cell Count 3.04 10^6/uL (4.20-5.40); Red Cell Dist. Width 14.5 % (11.5-14.5); White Blood Cell Count 3.9 10^3/uL (4.8-10.8)
[2024-12-05] MEDS: RETACRIT 4000 UNITS IV (08:32)
[2024-12-05 08:42] LABS: Blood Urea Nitrogen 91 mg/dl (7-17); Calcium 8.7 mg/dl (8.4-10.2); Carbon Dioxide 28 mmol/L (22-30); Chloride 99 mmol/L (98-107); Estimated Creatinine Clearance 17 ml/min; Glucose 99 mg/dl (70-99); Potassium 4.7 mmol/L (3.5-5.1); Sodium 137 mmol/L (135-145); eGFR 16.68
[2024-12-05] MEDS: NOVOLOG FLEXPEN-MODERATE RESISTANCE SC ×2 (08:58→11:41)
--- NOTE | 2024-12-05 09:36 | CM ---
CM spoke with patient while on HD. Patient stated that she had 'heard something about the transfer' but did not want to sign IMM, CM reviewed and will place a form on the chart that patient declined to sign. CM called to patient son to confirm plan.
Patient son confirmed plan to transfer to [facility] and stated that if patient declined to sign CM should just note that in the chart. MARLEEN spoke with liaison and she requested that report be faxed to [phone]/fax [phone]. CM completed
transfer forms and provided to nursing. CM will continue to follow for discharge planning needs.
Plan; transfer to SNF
--- NOTE | 2024-12-05 10:01 | W.PN.NEPH.HD ---
Assessment
-
Patient seen on dialysis
Systolic blood pressure 121 at current UF
Patient for discharge to [facility] after dialysis today
HD via tunneled dialysis cath
Progress Note - Hemodialysis
-
Date of Service: December 05, 2024
Duration: 30 minutes and 3 hours
Potassium Bath: 2
Calcium Bath: 2.5
Opti-Dialyzer: 160
Ultrafiltration: Other (1kg)
Blood Flow: 400
Dialysate Flow: 600
Heparin: none
EPO: 4K
--- NOTE | 2024-12-05 10:32 | W.PN.HOSP.TC ---
Today's Communication/Plan
-
MEDCIALLY STABLE FOR D/C
Assessment / Plan
Assessment / Plan
74 y/o female with CHB s/p PPM, persistent atrial fibrillation, CAD s/p CABG and ICMO admitted with weakness and fatigue, managed for decompensated HFrEF with ANDI. Also found to have severe decubitus ulcers without signs of OM on CT. Started on HD
on 11/22/24 with good fluid control. Pancutopenia evaluated by hematology - will follow as outpTIENT, REFERRAL PROVIDED. medically stable for d/c to rehab
#Acute on chronic HFrEF
#Elevated troponin due to non myocardial ischemic injury.
#Hx of AVB s/p PPM
#CAD s/p CABG
#Ischemic CM
#Persistent Afib
RHC on 11/14/24 - increased PCWP -status post diuresis and started on HD, ALso found R subclavian occlusion
GDMT limited by kidney function--> currently on beta-blockers.
On beta-blockers for rate control and Eliquis for anticoagulation
#ANDI on CKD 4 (cardiorenal)
Initiated on hemodialysis during this hospital stay
Nephro follows
Daily electrolytes
Plans to arrange for outpatient hemodialysis and once that is arranged then start planning discharge
#Hypotension
Improved
Discontinued hydralazine and Lasix
Discussed with cardiology on 11/28 and we agree that the less medications will be better for now and can reevaluate later down the road what medications to restart.
Monitor blood pressure
Midodrine added by nephrology with HD
#pancytopenia
Pancytopenia few years
Hematology consult--> supervisor/port director feels etiology multifactorial and workup in progress and probably will require bone marrow biopsy as outpatient. B12 and folate normal and kappa and lambda chain pending.
monitor
#Anemia most likely 2/2 CKD and as above
monitor H&H
#Right axillary/subclavian vein stenosis
Outpatient VascSx
Will need CTA, now with advanced ANDI on CKD - high risk
Asymptomatic
#Stage IV left ischial pressure injury, present on admission
#Stage III sacral pressure injury, POA
CT without signs of OM
wound care
#Bleeding from ostomy
resolved after nitrate stick
#DM type 2 with nephropathy
Insulin SS, accuchecks, DM diet
#Anxiety/depression
#GERD
cont home meds
DVT ppx on eliquis
Full code
Anticipated Discharge: Within 24 hours
Subjective/Interval History
-
Date of Service: December 05, 2024
Objective Data
-
Labs:
Laboratory Results
12/05/24
07:48
WBC 3.9 L
Hgb 9.0 L
Hct 28.2 L
Plt Count 92 L
Sodium 137
Potassium 4.7
Chloride 99
Carbon Dioxide 28
BUN 91 H
Creatinine 2.9 H
Glucose 99
Calcium 8.7
Vital Signs:
Vital Signs
Temp Pulse Resp BP Pulse Ox
97.5 F 65 16 117/53 97
12/05/24 07:25 12/05/24 07:25 12/05/24 07:25 12/05/24 07:25 12/05/24 07:25
I&O
12/04/24 12/05/24 12/06/24
06:59 06:59 06:59
Intake Total 360 / 360 720 / 720
Output Total 125 / 125
Balance 360 / 360 595 / 595
Review of Systems
-
History Source: Patient
All other systems: Reviewed and negative
EENT: Reports Sore Throat
Physical Exam
-
General: No Apparent Distress
HEENT: Normocephalic and Other (no throat redness)
Respiratory: Clear to Auscultation
GI: Soft, Nontender and Nondistended
Skin: Warm
Neuro: Awake, Alert, Oriented and AO x 3
Psych: Calm
--- NOTE | 2024-12-05 10:41 | W.DCSUMMARY ---
Discharge Summary
Discharge Data
Date of Admission: 11/02/24
Date of Discharge: 12/05/24
-
Pending Results: No
Hospital Course
74 y/o female with CHB s/p PPM, persistent atrial fibrillation, CAD s/p CABG and ICMO admitted with weakness and fatigue, managed for decompensated HFrEF with ANDI. Also found to have severe decubitus ulcers without signs of OM on CT. Started on HD
on 11/22/24 with good fluid control. Pancutopenia evaluated by hematology - will follow as outpatient referral provided. medically stable for d/c to rehab
I have spent at least 39min reviewing chart, test results, communication to the consultants and direct patient care
Patient was managed for:
#Acute on chronic HFrEF
#Elevated troponin due to non myocardial ischemic injury.
#Hx of AVB s/p PPM
#CAD s/p CABG
#Ischemic CM
#Persistent Afib
#ANDI on CKD 4 (cardiorenal)
#Hypotension
#pancytopenia
#Anemia most likely 2/2 CKD and as above
#Right axillary/subclavian vein stenosis
#Stage IV left ischial pressure injury, present on admission
#Stage III sacral pressure injury, POA
#Bleeding from ostomy
#DM type 2 with nephropathy
#Anxiety/depression
#GERD
Discharge Plan
-
Patient Disposition: Fpc/SNF
Discharge Diagnosis/Procedures: ANDI, CHF
Diet: Low Sodium and Diabetic, Carb Controlled
Activity: As tolerated
Activity Restrictions/Additional Instructions:
Wound Care Instructions
R lateral LE wound-clean with saline, adaptic, cover with silicone border foam or ABD pad/Kerlix, change daily and prn drainage (add alginate after adaptic prn large amount of drainage).
L ischial wound-clean with saline or Vashe wound cleanser, no sting barrier wipe to surrounding skin, loosely pack with Mesalt ribbon, cover with alginate, then silicone border foam, change packing daily, change outer dressings bid and prn loosened
dressing.
Aquaphor ointment to dry intact skin le's daily.
Sacral ulcer-clean with saline or Vashe wound cleanser, silicone border foam, daily and prn loosened dressing.
Barrier ointment to echo skin bid. Antifungal ointment to groin folds bid.
Bilateral dorsal foot dry scabs-cover with silicone border foam after cleaning with saline daily for protection/drainage.
Bilateral knee high Tubigrip as tolerated; remove at bedtime.
Air mattress
Limit sitting to 1 hour bid with high end pressure redistributing chair cushion (i.e. Roho).
Elevate heels off bed with pillows.
Turning schedule.
Follow up/make appointment with plastic surgeon.
Follow up at wound care center call for an appointment.
Referrals:
Edgar Mckee DO [Active] - in two to four weeks
Josh Centeno DO [Active] - in one to two weeks
Sukhjinder Juan III, MD [Active] - in four to six weeks (subclavian stenosis)
NONE,* [Family Provider] -
Juan Daniel Dalal MD [Active] - in one week
Prescriptions:
New
Chloraseptic Sore Throat 6-10 mg Lozenge
1 reagan PO Q4HPRN PRN (Reason: sore throat) Qty: 30 0RF
metoprolol succinate 25 mg Tablet Extended Release 24 Hr
25 mg PO DAILY Qty: 30 0RF
acetaminophen 325 mg Tablet
650 mg PO Q4HPRN PRN (Reason: mild pain/ fever>100.5F) Qty: 60 0RF
Continued
atorvastatin [Lipitor] 40 mg Tablet
40 mg PO HS
buspirone 5 mg Tablet
5 mg PO BID
mirtazapine 7.5 mg Tablet
7.5 mg PO HS
ketotifen fumarate 0.025 % (0.035 %) Drops
1 drp BOTH EYES BID
Rx Instructions:
take for 14 days starting 10/31/24
isosorbide mononitrate 30 mg tablet extended release 24 hr
30 mg PO DAILY
cyanocobalamin (vitamin B-12) 1,000 mcg tablet
1,000 mcg PO DAILY
omeprazole 40 mg capsule,delayed release(DR/EC)
40 mg PO DAILY
ferrous sulfate 325 mg (65 mg iron) tablet
325 mg PO DAILY
Eliquis 5 mg tablet
5 mg PO BID
Changed
insulin aspart U-100 [Novolog FlexPen U-100 Insulin] 100 unit/mL (3 mL) Insulin Pen
6 unit SC AC Qty: 0 0RF
insulin glargine [Lantus Solostar U-100 Insulin] 100 unit/mL (3 mL) Insulin Pen
14 unit SC HS Qty: 0 0RF
Discontinued
metoprolol succinate 50 MG tablet extended release 24 hr
50 mg PO DAILY
acetaminophen [Tylenol Extra Strength] 500 mg Tablet
1,000 mg PO Q6HPRN PRN (Reason: mild pain)
loratadine 10 mg Tablet
10 mg PO DAILY
Rx Instructions:
take for 14 days starting 10/31/24
tramadol 25 mg Tablet
25 mg PO [id number] PRN (Reason: pain scale from 4-7)
furosemide 40 mg tablet
40 mg PO DAILY
hydralazine 25 mg tablet
25 mg PO TID
Discharge Orders:
Discharge Patient (As Directed); Ordered 12/05/24
Ordered By: Carlo Molina
Discharge Date and Time
Print Language: YORUBA
[2024-12-05] MEDS: ANESTHETIC LOZENGE 1 LOZENGE PO (11:10)
[2024-12-05] MEDS: NOVOLOG FLEXPEN SC (11:11)
[2024-12-05 11:36] VITALS: BP 144/61
[2024-12-05 11:40] LABS: Glucose - Point of Care 79 mg/dl (70-99)
[2024-12-05] MEDS: ELIQUIS 5 MG PO (11:41)
[2024-12-05] MEDS: PROTONIX 40 MG PO (11:41)
[2024-12-05] MEDS: IMDUR (EXTENDED RELEASE) 30 MG PO (11:41)
[2024-12-05] MEDS: BUSPAR 5 MG PO (11:41)
[2024-12-05] MEDS: TOPROL XL 25 MG PO (11:41)
[2024-12-05] MEDS: VITAMIN B-12 1000 MCG PO (11:41)
[2024-12-05] MEDS: HYDROPHOR 1 APPLIC TOPICAL (11:56)
[2024-12-05] MEDS: NOVOLOG FLEXPEN 6 UNITS SC (11:56)
[2024-12-05] MEDS: ANTIFUNGAL CLEAR TOPICAL (11:58)
--- NOTE | 2024-12-05 12:19 | W.PN.ADMCERT ---
Inpatient Certification Note
-
Reason for Hospitalization: ANDI
Expected length of stay greater than two midnights?: Yes
I certify the patient meets the requirements for IP care: Yes
Post Hospital Care:
Post-hospital care is identified in collaboration with the attending/treatment team as well as the patient�s individual needs.
Post-hospital care determinations will be documented in the Case Management assessment and in subsequent notes.
== END 2024-12-05 15:12 | DRG 286 ==
LOC: 3 WEST ACU 13:59
PROVIDERS: Hospitalist; Internal Medicine; Internal Medicine Cardiovascular Disease; Physician Assistant; Physician Assistant Medical; Radiology Vascular & Interventional Radiology; Specialist; ADMITTING PHYSICIAN Hospitalist; ATTENDING PHYSICIAN Internal Medicine; CONSULT PHYSICIAN Internal Medicine Cardiovascular Disease; CONSULT PHYSICIAN Specialist; EMERGENCY PHYSICIAN Student in an Organized Health Care Education/Training Program; OTHER PHYSICIAN Internal Medicine Hematology & Oncology
PROC: 4A023N6 Measurement of Cardiac Sampling and Pressure, Right Heart, Percutaneous Approach (ICD-10-PCS; 2024-11-14)
PROC: 5A1D70Z Performance of Urinary Filtration, Intermittent, Less than 6 Hours Per Day (ICD-10-PCS; 2024-11-22)
PROC: 02H633Z Insertion of Infusion Device into Right Atrium, Percutaneous Approach (ICD-10-PCS; 2024-11-22)
PROC: 0JH63XZ Insertion of Tunneled Vascular Access Device into Chest Subcutaneous Tissue and Fascia, Percutaneous Approach (ICD-10-PCS; 2024-11-22)
DX: I13.0 Hypertensive heart and chronic kidney disease with heart failure and stage 1 through stage 4 chronic kidney disease, or unspecified chronic kidney disease (principal); G93.41 Metabolic encephalopathy; I50.23 Acute on chronic systolic (congestive) heart failure; L89.153 Pressure ulcer of sacral region, stage 3; L89.324 Pressure ulcer of left buttock, stage 4; I48.19 Other persistent atrial fibrillation; N17.9 Acute kidney failure, unspecified; E87.20 Acidosis, unspecified; D61.818 Other pancytopenia; I87.1 Compression of vein; I44.2 Atrioventricular block, complete; N18.4 Chronic kidney disease, stage 4 (severe); K94.01 Colostomy hemorrhage; Z66 Do not resuscitate; I5A Non-ischemic myocardial injury (non-traumatic); I25.5 Ischemic cardiomyopathy; R62.7 Adult failure to thrive; K21.9 Gastro-esophageal reflux disease without esophagitis; I25.2 Old myocardial infarction; E11.22 Type 2 diabetes mellitus with diabetic chronic kidney disease; E78.00 Pure hypercholesterolemia, unspecified; D63.1 Anemia in chronic kidney disease; I89.0 Lymphedema, not elsewhere classified; F32.A Depression, unspecified; F41.9 Anxiety disorder, unspecified; I25.10 Atherosclerotic heart disease of native coronary artery without angina pectoris; I27.29 Other secondary pulmonary hypertension; I95.9 Hypotension, unspecified; Z95.0 Presence of cardiac pacemaker; Z79.4 Long term (current) use of insulin; Z79.01 Long term (current) use of anticoagulants; Z99.3 Dependence on wheelchair; Z95.1 Presence of aortocoronary bypass graft; Z91.041 Radiographic dye allergy status; Z88.8 Allergy status to other drugs, medicaments and biological substances; Z88.2 Allergy status to sulfonamides; Z88.1 Allergy status to other antibiotic agents; Z87.891 Personal history of nicotine dependence; Z85.71 Personal history of Hodgkin lymphoma; Z79.899 Other long term (current) drug therapy
CPT/HCPCS: 36558; 51702; 51798; 70450; 71046; 72192; 76775; 76937; 77001; 80048; 80051; 80053; 81003; 81015; 82550; 82607; 82728; 82746; 82947; 82962; 83521; 83540; 83550; 83735; 83880; 84484; 85014; 85018; 85025; 85027; 85045; 85610; 86704; 86803; 87070; 87086; 87147; 87340; 92526; 92610; 93005; 93451; 93971; 96360; 96361; 97116; 97163; 97167; 97530; 97535; 99152; 99153; 99285; C1752; C1894; G0257; J1205; P9047; Q5106

== ENCOUNTER 2025-02-03 14:22 | Inpatient (IN) | payer MEDICARE, SELFPAY ==
[2025-02-03] VITALS (9 sets, daily range): BP systolic 90–117; BP diastolic 41–59; BMI 24.6
--- NOTE | 2025-02-03 08:53 | ED.GENMED ---
History of Present Illness
General
Chief Complaint: Change in Mental Status
Time Seen by Provider: 02/03/25 08:43
History of Present Illness
History of Present Illness:
Patient is a 74-year-old woman with history of HFrEF, A-fib on , CKD on Thursday dialysis, CAD status post CABG, ostomy presenting to the emergency department with confusion. Per medics [facility] and they
noticed that she was more confused. She is normally able to voice her concerns. However she was ANO x 1 today. She denies any complaints and constantly states that everything hurts. Otherwise history is limited
Per chart review patient did have a long stay October 2020 for secondary to acute renal failure that required dialysis, heart failure exacerbation, pancytopenia
Past History
Past History
ED Past Medical History: Arrthythmia, CAD, Cancer (Hodgkin's lymphoma 1988), CHF, HTN, Hypercholesterolemia, IDDM and NH
ED Past Surgical History: Cardiac (Bypass surgery) and Orthopedic (Left great toe amputation)
Social History
Tobacco: Non-smoker
Alcohol: None
Drug: None
Personal: Single
Living: with family
Employment: Not employed
Family History
Family History: Unable to obtain
Phy Exam
Physical Exam
Physical Exam:
GENERAL: in no acute distress
HEENT: normocephalic, extraocular movements intact, moist oral mucosa, productive cough
NECK: normal inspection
RESPIRATORY: no respiratory distress, crackles in all anterior lung hernandez
CARDIOVASCULAR: regular rate and rhythm
ABDOMEN/: Ostomy in place, soft, non-distended, mild diffuse tenderness to palpation, no rebound or guarding, pressure ulcers without any associated warmth or erythema or drainage
EXTREMITIES: non-tender, bilateral edema
NEUROLOGIC: awake and alert, oriented x 1, moves all extremities no focal deficits
SKIN: warm
Sepsis
Sepsis Screening
Sepsis Assessment: Sepsis Ruled Out
Sepsis Screen
Sepsis Screen: Sepsis Ruled Out
Date: 02/03/25
Time: 10:31
Course
Orders/Labs/Results
Orders:
Orders
02/03/25 08:51
CT Abd/pel Without Iv Or Oral Urgent
Comment:
Reason For Exam: abdominal pain
CT Head W/o Iv Contrast Urgent
Comment:
Reason For Exam: confusion
CR Chest - 2 Views Urgent
Comment:
Reason For Exam: hypoxia
02/03/25 08:52
Electrocardiogram (*1) Urgent
Reason for Study: Shortness of Breath
EKG- Treatment ONCE
02/03/25 09:02
Basic Metabolic Panel Urgent
COVID-19 Antigen Urgent
Source: Nasal Swab
Complete Blood Count/With Diff Urgent
NT-proBNP Urgent
Thyroid profile [TSH Reflex To Free T4] Urgent
Influenza A+B Rapid Molecular Urgent
SHEYLA Source: Nasal Swab
Specimen Description:
02/03/25 10:03
Potassium Urgent
Urinalysis Reflex To Culture Urgent
Date Specimen was Collected: 02/03/25
Time Specimen was Collected: 09:58
Urine Microscopic Reflex Cult Urgent
Urine Culture Urgent
SHEYLA Source: U
Specimen Description:
Date Specimen was Collected: 02/03/25
Time Specimen was Collected: 09:58
02/03/25 10:09
Cefepime HCl [Maxipime] 2,000 mg IV NOW STA
02/03/25 10:10
Doxycycline Hyclate [Vibramycin] 100 mg 0.9% Sodium Chloride 250 ml [Nss] 250 ml IV NOW
02/03/25 10:15
Blood Culture Q30M
SHEYLA Source: Blood/Venous
Specimen Description:
02/03/25 10:45
Blood Culture Q30M
SHEYLA Source: Blood/Venous
Specimen Description:
Abnormal Lab Results
02/03/25 02/03/25
09:02 10:03
RBC 3.79 L 10^6/uL
(4.20-5.40)
Hgb 11.4 L g/dL
(12.0-16.0)
Hct 35.0 L %
(37.0-47.0)
MCHC 32.6 L g/dL
(33.0-37.0)
RDW 16.3 H %
(11.5-14.5)
Plt Count 102 L 10^3/uL
(130-400)
Abs Immat Gran (auto) 0.1 H 10^3/uL
(0-0.05)
Absolute Neuts (auto) 6.6 H 10^3/uL
(1.4-6.5)
Absolute Lymphs (auto) 0.8 L 10^3/uL
(1.2-3.4)
Immature Gran % 0.9 H %
(0-0.5)
Neutrophils % 80.9 H %
(42.2-75.2)
Lymphocytes % 9.5 L %
(20.5-51.1)
Carbon Dioxide 18 L mmol/L
(22-30)
BUN 92 H mg/dl
(7-17)
Creatinine 4.8 H* mg/dL
(0.6-1.0)
Glucose 127 H mg/dl
(70-99)
Urine Bilirubin 1+ A
(Negative)
Leukocyte Esterase Rfl 1+ A
(Negative)
Urine Albumin (Reflex) 3+ A
(Neg - Trace)
02/03/25 09:02
02/03/25 10:03
Vital Signs
Initial and Last Documented VS:
Initial Vital Signs
Temp Pulse Resp BP Pulse Ox
98.0 F 60 18 109/55 100
02/03/25 08:47 02/03/25 08:47 02/03/25 08:47 02/03/25 08:47 02/03/25 08:47
Last Documented Vital Signs
Temp Pulse Resp BP Pulse Ox
98.0 F 60 18 109/55 100
02/03/25 08:47 02/03/25 08:47 02/03/25 08:47 02/03/25 08:47 02/03/25 08:47
MDM/Problems Addressed
Differential Diagnosis Includes:
Patient is a 74-year-old woman with history of HFrEF, A-fib on , CKD on Thursday dialysis, CAD status post CABG, ostomy presenting to the emergency department increased confusion. Vitals were notable for requiring nasal
cannula and exam does show crackles in all anterior lung hernandez as well as diffuse abdominal tenderness and a woman who is ANO x 1 with a baseline of ANO x 3. Differential is broad but consists of infection such as pneumonia or UTI, CHF
exacerbation, metabolic derangement. Will check blood work urine EKG chest x-ray obtain CT scan of the head and abdomen.
*Critical Care Note
Total Time (30-74mins, 75-104mins- exclusive of procedures): Not Applicable
Update Note
Update Note:
Blood work shows elevated BUN and BNP. Chest x-ray per my interpretation is consistent with possible right lower lobe pneumonia. Will give antibiotics given patient's confusion. CT scan of the head negative for any acute abnormality. CT scan of
the abdomen does show possible pneumonia versus atelectasis. She has received antibiotics. I did discuss with nephrology as patient would benefit from dialysis today. Also discussed with hospitalist who accepted patient to their service.
ED Attending Note
-
Portions of this chart may have been created with voice recognition software.� Occasional wrong word or��sound alike� substitutions may have occurred due to the inherent limitations of voice recognition software.
Discharge Plan
Departure
Patient Disposition: Admit
Date of Disposition: 02/03/25
Time of Disposition: 10:28
Presentation/result/management discussed w/ accepting MD/DO: Hospitalist
Discharge Problem:
Confusion
Prescriptions:
No Action
atorvastatin [Lipitor] 40 mg Tablet
40 mg PO HS
buspirone 5 mg Tablet
5 mg PO BID
mirtazapine 7.5 mg Tablet
7.5 mg PO HS
ketotifen fumarate 0.025 % (0.035 %) Drops
1 drp BOTH EYES BID
Rx Instructions:
take for 14 days starting 10/31/24
isosorbide mononitrate 30 mg tablet extended release 24 hr
30 mg PO DAILY
cyanocobalamin (vitamin B-12) 1,000 mcg tablet
1,000 mcg PO DAILY
omeprazole 40 mg capsule,delayed release(DR/EC)
40 mg PO DAILY
ferrous sulfate 325 mg (65 mg iron) tablet
325 mg PO DAILY
Eliquis 5 mg tablet
5 mg PO BID
Chloraseptic Sore Throat 6-10 mg Lozenge
1 reagan PO Q4HPRN PRN (Reason: sore throat) Qty: 30 0RF
metoprolol succinate 25 mg Tablet Extended Release 24 Hr
25 mg PO DAILY Qty: 30 0RF
acetaminophen 325 mg Tablet
650 mg PO Q4HPRN PRN (Reason: mild pain/ fever>100.5F) Qty: 60 0RF
insulin aspart U-100 [Novolog FlexPen U-100 Insulin] 100 unit/mL (3 mL) Insulin Pen
6 unit SC AC Qty: 0 0RF
insulin glargine [Lantus Solostar U-100 Insulin] 100 unit/mL (3 mL) Insulin Pen
14 unit SC HS Qty: 0 0RF
Referrals:
Partha Guillen MD [Family Provider] -
Interventions
Interventions:
*Risk Screen - Suicide Last Done: 02/03/25 08:47
*General Assessment Last Done: 02/03/25 08:47
*Neglect/Abuse Screening Last Done: 02/03/25 08:47
*ED COVID-19 Vaccine History Last Done: 02/03/25 08:47
ED- Pulmonary Assessment Last Done: 02/03/25 08:45
ED- Neurological Assessment Last Done: 02/03/25 08:45
ED- Cardiac Assessment Last Done: 02/03/25 08:45
Discharge Date and Time
Print Language: GREEK
[2025-02-03 09:20] LABS: % Basophils 0.2 % (0-2); % Eosinophils 0.6 % (0-6); % Immature Granulocytes 0.9 % (0-0.5); % Lymphocytes 9.5 % (20.5-51.1); % Monocytes 7.9 % (1.7-9.3); % Neutrophils 80.9 % (42.2-75.2); Absolute Eosinophils 0.1 10^3/uL (0-0.7); Absolute Immature Granulocytes 0.1 10^3/uL (0-0.05); Absolute Lymphocytes 0.8 10^3/uL (1.2-3.4); Absolute Monocytes 0.6 10^3/uL (0.1-0.6); Absolute Neutrophils 6.6 10^3/uL (1.4-6.5); Hemoglobin 11.4 g/dL (12.0-16.0); Mean Corp Hgb Conc. 32.6 g/dL (33.0-37.0); Mean Corpuscular Hgb 30.1 pg (27.0-31.0); Mean Corpuscular Volume 92.3 fL (81.0-99.0); Mean Platelet Volume 9.8 fL (7.4-10.4); Nucleated Red Blood Cells % 0 %; Platelet Count 102 10^3/uL (130-400); Red Blood Cell Count 3.79 10^6/uL (4.20-5.40); Red Cell Dist. Width 16.3 % (11.5-14.5); White Blood Cell Count 8.1 10^3/uL (4.8-10.8)
[2025-02-03 09:39] LABS: Blood Urea Nitrogen 92 mg/dl (7-17); Calcium 8.4 mg/dl (8.4-10.2); Carbon Dioxide 18 mmol/L (22-30); Chloride 107 mmol/L (98-107); Estimated Creatinine Clearance 10 ml/min; Glucose 127 mg/dl (70-99); NT-proBNP > 27000 pg/ml; Sodium 136 mmol/L (135-145); eGFR 9.11
[2025-02-03 09:45] LABS: COVID-19 Antigen Negative (Negative)
[2025-02-03 10:01] LABS: TSH Reflex To Free T4 1.56 uIU/ml (0.47-4.68)
[2025-02-03 10:21] LABS: Potassium 3.9 mmol/L (3.5-5.1); Urine Albumin 3+ (Neg - Trace); Urine Bilirubin 1+ (Negative); Urine Character Clear (Clear); Urine Color Yellow; Urine Glucose Negative (Negative); Urine Ketone Negative (Negative); Urine Leukocyte 1+ (Negative); Urine Nitrite Negative (Negative); Urine Occult Blood Negative (Negative); Urine Specific Gravity 1.025 (<1.030); Urine Urobilinogen Negative (Neg - 1+)
[2025-02-03] MEDS: MAXIPIME 2000 MG IV (11:10)
[2025-02-03 11:28] LABS: Urine Amorphous Seen; Urine Mucus Many; Urine Squamous Cell 0-2 /LPF (Few)
[2025-02-03 11:29] LABS: Urine Hyaline Cast 0-2 /LPF (0-2)
[2025-02-03 11:30] LABS: Urine Red Blood Cell 0-2 /HPF (0-2)
[2025-02-03] MEDS: VIBRAMYCIN 260 MG IV ×2 (12:13→23:06)
--- NOTE | 2025-02-03 13:46 | HPS.HSE ---
Family Physician
-
Family Physician: Partha Guillen MD
Chief Complaint
-
AMS
History of Present Illness
74-year-old female with ischemic cardiomyopathy with biventricular failure (LVEF 35%), pulmonary hypertension, CAD s/p CABG, PAD s/p left first toe amputation, AF on Eliquis, IDDM C/B retinopathy and nephropathy, ESRD on HD M/W/F, HTN, HLD, chronic
anemia, stage IV sacral decubitus ulcer, lymphedema, H/O Hodgkin's lymphoma (1988), S/P colostomy/Jonathan procedure, S/P PPM who presented to the hospital today with change in mental status. Per EMS patient from [facility], where staff noticed
she was more confused than usual and AAO x 1 on evaluation. Patient denied any complaints but stated everything hurt. Upon arrival to the ED AFVSS on 2 L of oxygen with SpO2 100%. Initial labs with hemoglobin 11.4, BUN 92, creatinine 4.8, bicarb
18. No leukocytosis, COVID/flu testing negative. Chest x-ray showed mild bibasilar opacification concerning for atelectasis versus pneumonia but no obvious consolidation on my read. CT A/P without contrast showed patchy areas of parenchymal
opacity in the left lower lobe again suspicious for pneumonia versus atelectasis as well as signs of lower lobe bronchitis. CT head without contrast with signs of sinusitis but otherwise no acute neurological findings. ED started antibiotics with
cefepime and doxycycline. Nephrology was alerted for dialysis that she was due today.
Medical History
Past Medical History
Past Medical History: Reports CAD, CHF, HTN, Hypercholesterolemia, IDDM and Renal Failure
Additional Past Medical History:
SEE HPI
Past Surgical History: Reports Other
Additional Past Surgical History:
Left great toe amputation
PPM Placement
CABG x 3
Left Ankle Fusion
Ex Lap / Sigmoid Resection / End Colostomy
Cholecystectomy
Social History
Tobacco: Non-smoker
Alcohol: None
Drug: None
Family History
Family History: Not pertinent
Allergies / Home Medications
Allergies reflects when Allergies were last updated in [facility].
Home Medications with original date entered in [facility]
Allergy/Medication List:
Allergies
Allergy/AdvReac Type Severity Reaction Status Date / Time
erythromycin base Allergy Unknown Verified 02/03/25 08:46
Iodinated Contrast Media Allergy Unknown Verified 02/03/25 08:46
[Iodinated Contrast Media -
IV Dye]
prednisone Allergy Unknown Verified 02/03/25 08:46
sulfamethoxazole Allergy Unknown Verified 02/03/25 08:46
[From Bactrim]
trimethoprim [From Bactrim] Allergy Unknown Verified 02/03/25 08:46
vancomycin Allergy Itching Verified 02/03/25 08:46
AND RED
SCALP
Home Medications
atorvastatin 40 mg tablet (Lipitor) 40 mg PO HS High cholesterol 02/18/23
buspirone 5 mg tablet 5 mg PO BID anxiety 02/18/23
mirtazapine 7.5 mg tablet 7.5 mg PO HS depression/sleep 02/18/23
apixaban 5 mg tablet (Eliquis) 5 mg PO BID Blood Clot Prevention/Tx 11/02/24
cyanocobalamin (vitamin B-12) 1,000 mcg tablet 1,000 mcg PO DAILY Supplement 11/02/24
ferrous sulfate 325 mg (65 mg iron) tablet 325 mg PO DAILY Supplement 11/02/24
isosorbide mononitrate 30 mg tablet,extended release 24 hr 30 mg PO DAILY Heart Disease/Condition 11/02/24
ketotifen fumarate 0.025 % (0.035 %) eye drops 1 drp BOTH EYES BID Eye Condition 11/02/24
omeprazole 40 mg capsule,delayed release 40 mg PO DAILY Gastrointestinal Issue 11/02/24
acetaminophen 325 mg tablet 650 mg (2 x 325 mg) PO Q4HPRN PRN mild pain/ fever>100.5F #60 tabs 12/05/24
benzocaine 6 mg-menthol 10 mg lozenges (Chloraseptic Sore Throat) 1 reagan PO Q4HPRN PRN sore throat #30 ea 12/05/24
insulin aspart U-100 100 unit/mL (3 mL) subcutaneous pen (Novolog FlexPen U-100 Insulin aspart) 6 unit (0.06 mL) SC AC diabetes #0 mL 12/05/24
insulin glargine 100 unit/mL (3 mL) subcutaneous pen (Lantus Solostar U-100 Insulin) 14 unit (0.14 mL) SC HS Diabetes #0 mL 12/05/24
metoprolol succinate 25 mg tablet,extended release 24 hr 25 mg PO DAILY #30 tabs 12/05/24
Review of Systems
-
Unable to obtain full review of systems at this time due to: Acuity
Physical Exam
Vital Signs
Vital Signs
Temp Pulse Resp BP Pulse Ox
98.0 F 61 16 101/51 100
02/03/25 08:47 02/03/25 11:14 02/03/25 11:14 02/03/25 11:14 02/03/25 11:14
Physical Exam
General: Well Developed, Well Nourished and No Apparent Distress
HEENT: NormoCephalic, Anicteric and Moist mucous membranes
Respiratory: Rales and Non Labored Respirations; No Wheezes, Rhonchi or Accessory Resp Muscle Use
Cardiac: S1/S2, Irregular Rhythm and Peripheral Edema (LLE>RLE); No Tachycardia, Murmur, Rub or Gallop
GI: Soft, Non Tender, Non Distended and Normal Bowel Sounds
Musculoskeletal: No Clubbing, No Cyanosis and Other (Amputated left first toe)
Skin: Warm and Dry; No Rash or Jaundice
Neuro: Awake, Alert, AO x 3 (AAO x 1), Nonfocal/grossly intact and Cranial Nerves Intact; No Tremors
Psych: Calm
Laboratory Results
-
02/03/25 09:02
02/03/25 10:03
Laboratory Results
Total Bilirubin Cancelled 02/03/25 09:02
AST Cancelled 02/03/25 09:02
ALT Cancelled 02/03/25 09:02
Alkaline Phosphatase Cancelled 02/03/25 09:02
Data Reviewed
-
Lab Data: Labs Reviewed by me and Discussed with Physician (ED attending)
Impression/Plan
-
#Acute metabolic encephalopathy
#Acute hypoxemic respiratory insufficient
#Possible community-acquired pneumonia
-Differential diagnosis for etiology include pneumonia versus bronchitis versus uremia
-ED concern for pneumonia however no leukocytosis on labs, no fevers reported
-BUN is high at 91 however has had BUN at that level or higher previously without encephalopathy documented
-Would doubt that this is hypoxemia driven as no significant hypoxemia documented
-In the ED was started on cefepime; last hospital stay in November, low suspicion for HAP
-On exam she does not have any focal neurological deficits that would indicate MRI
-Nephrology consulted to resume hemodialysis as below
Plan
-Continue empiric antibiotics with ceftriaxone and doxycycline for CAP
-Low threshold to discontinue antibiotics if quick improvement after dialysis
-No utility to checking procalcitonin due to end-stage renal disease
-Check sputum culture, trend CBC and temperature curve
-Wean oxygen for SpO2 goal >90%
-Monitor MSE closely, consider MRI if FND present
#Biventricular heart failure
#HFrEF secondary to ischemic cardiomyopathy
#Pulmonary hypertension
-Last echocardiogram with LVEF of 35%, RV dilation and reduced systolic function
-Home GDMT includes beta-adrian; not currently on any standing diuretic regimen
-Volume status maintained with dialysis; hypervolemic on 02/03 predialysis
-Will continue to monitor volume status closely
#CAD s/p CABG
#PAD s/p left first toe amputation
-Significant ischemic disease likely related to poorly controlled diabetes over time
-Home medications include high intensity statin; no antiplatelets but is on Eliquis for AF
-Also takes isosorbide and beta-adrian for CAD history
#Paroxysmal atrial fibrillation
-Nonvalvular; no known history of EP interventions
-Home regimen includes Eliquis and metoprolol succinate
-Heart rate currently WNL, but in AF with ventricular pacing
#End-stage renal disease on HD M/W/F
#Anemia of chronic disease
#Renal osteodystrophy
-Secondary to diabetic nephropathy and hypertensive nephropathy
-Complicated by bone mineral disease and anemia; no significant acidemia
-Home regimen does not currently include phosphate binders or bicarbonate
-Nephrology consulted to resume hemodialysis sessions here
#IDDM C/B microvascular ischemia
#Retinopathy
#Neuropathy
#Nephropathy
-Home regimen includes Lantus 14 units nightly, NovoLog 6 units with meals
-Significant microvascular and macrovascular disease complications
-Will add additional sliding scale insulin with Accu-Cheks while inpatient
-Blood glucose goal 140-108
#Stage IV sacral decubitus ulcer, [employer]
-Wound care and monitor for infection
-Offloading protocol
#Lymphedema
-Seems asymmetric with LLE > RLE
-Will continue to monitor, order compression stocking
#H/O Jonathan's procedure and ostomy
-Wound care/ostomy
-Monitor surrounding area for infection
#S/p PPM
-Likely placed for sick sinus syndrome or AV block
-No signs of pacemaker dysfunction currently
DVT prophylaxis: Home Eliquis
Diet: Standard renal
CODE STATUS: DNR, confirmed with [facility]
Disposition: Admit to telemetry
[2025-02-03] MEDS: NOVOLOG FLEXPEN SC (16:22)
--- NOTE | 2025-02-03 16:25 | WOUNDNOTE ---
[facility] RN note: Patient admitted with metabolic encephalopathy
See H&P for complete history.
PMH: HF, ESRD (dialysis M-W-F), Afib, IDDM, PI of sacrum and ischium, lymphedema, colostomy. Patient admitted from [facility].
Wound Location and type/assessment: Patient could not be fully assessed due to urgent start of dialysis. Will follow up for full assessment on 02/06. Patient admitted with stage 2 sacral PI. Periwound is macerated and wound is shallow and pink. The
left ischial wound is a stage 3 vs stage 4 and undermines 2 cm at 9 oclock. Heels are intact. Scabs noted on left dorsal foot. Colostomy intact.
Pressure redistribution devices in place: Chair cushion applied under sacrum during dialysis. Static air overlay to be applied after dialysis. Heels off-loaded with pillows under calves.
Plan: Left ischial wound cleaned and packed with mesalt gauze and covered with silicone foam dressing. Sacral wound cleaned and covered with silicone border foam. Colostomy supplies ordered to bedside. DAO Martinez updated on plan. Orders confirmed with
hospitalist. Care plan updated. Will follow up with patient again on 02/06.
Note to case management of equipment requested for discharge: Air Mattress
Recommend follow up at wound care center upon discharge.
--- NOTE | 2025-02-03 16:30 | W.CON.NEPH ---
Medical History
-
Chief Complaint: AMS
History of Present Illness:
This is a 74-year-old female who has diabetes mellitus type 2 which is typically uncontrolled on insulin therapy, atrial fibrillation on anticoagulation with Eliquis, hyperlipidemia on statin therapy. She has started on HD in 10/2024 mainly
cardiorenal, ischemic cardiomyopathy with ejection fraction of 30%. pulmonary hypertension, CAD s/p CABG, PAD s/p left first toe amputation, chronic anemia, stage IV sacral decubitus ulcer, lymphedema, H/O Hodgkin's lymphoma (1988), S/P
colostomy/Jonathan procedure, S/P PPM who presented to the hospital today with change in mental status. She is currently treated for possible PNA. Nephrology was consulted for HD needs. Pt is not responding well to the questions and history is very
limited, most of the history from chart..
.
Past Medical History
ESRD on HD since 10/2024 , heart failure reduced ejection fraction 30%, coronary artery disease/CABG, paroxysmal atrial fibrillation, lymphedema, non-Hodgkin's lymphoma, Diazemuls type II, ileostomy, diverticulitis, hypertension, GERD,
hyperlipidemia, obesity, pulmonary hypertension, Charcot foot, left ankle fusion, left great toe amputation, cholecystectomy, pacemaker
Past Surgical History: Other (Left great toe amputation PPM Placement CABG x 3 Left Ankle Fusion Ex Lap / Sigmoid Resection / End Colostomy Cholecystectomy)
Social History
Tobacco: Former Smoker
Alcohol: None
Drug: None
Living: Halfway
Family History
Family History: Not Pertinent
Allergies / Home Medications
Allergy/AdvReac Type Severity Reaction Status Date / Time
erythromycin base Allergy Unknown Verified 02/03/25 08:46
Iodinated Contrast Media Allergy Unknown Verified 02/03/25 08:46
[Iodinated Contrast Media -
IV Dye]
prednisone Allergy Unknown Verified 02/03/25 08:46
sulfamethoxazole Allergy Unknown Verified 02/03/25 08:46
[From Bactrim]
trimethoprim [From Bactrim] Allergy Unknown Verified 02/03/25 08:46
vancomycin Allergy Itching Verified 02/03/25 08:46
AND RED
SCALP
�Medication �Instructions �Recorded �Confirmed �Type
atorvastatin 40 mg tablet (Lipitor) 40 mg PO HS High cholesterol 02/18/23 02/03/25 History
buspirone 5 mg tablet 5 mg PO BID anxiety 02/18/23 02/03/25 History
apixaban 5 mg tablet (Eliquis) 5 mg PO BID Blood Clot 11/02/24 02/03/25 History
Prevention/Tx
cyanocobalamin (vitamin B-12) 1,000 mcg PO DAILY Supplement 11/02/24 02/03/25 History
1,000 mcg tablet
ferrous sulfate 325 mg (65 mg 325 mg PO NOON Supplement 11/02/24 02/03/25 History
iron) tablet
isosorbide mononitrate 30 mg 30 mg PO DAILY Heart 11/02/24 02/03/25 History
tablet,extended release 24 hr Disease/Condition
omeprazole 40 mg capsule,delayed 40 mg PO DAILY Gastrointestinal 11/02/24 02/03/25 History
release Issue
benzocaine 6 mg-menthol 10 mg 1 reagan PO Q4HPRN PRN sore throat 12/05/24 02/03/25 Rx
lozenges (Chloraseptic Sore Throat) #30 ea
insulin aspart U-100 100 unit/mL 6 unit (0.06 mL) SC AC diabetes 12/05/24 02/03/25 Rx
(3 mL) subcutaneous pen (Novolog #0 mL
FlexPen U-100 Insulin aspart)
insulin glargine 100 unit/mL (3 14 unit (0.14 mL) SC HS Diabetes 12/05/24 02/03/25 Rx
mL) subcutaneous pen (Lantus #0 mL
Solostar U-100 Insulin)
metoprolol succinate 25 mg 25 mg PO DAILY #30 tabs 12/05/24 02/03/25 Rx
tablet,extended release 24 hr
acetaminophen 325 mg tablet 650 mg PO Q6HPRN PRN mild pain 02/03/25 02/03/25 History
bisacodyl 10 mg rectal suppository 10 mg FL DAILYPRN PRN NO RESULTS 02/03/25 02/03/25 History
FROM MOM
dextromethorphan HBr 1 tsp PO Q6HPRN PRN 02/03/25 02/03/25 History
COUGH,CONGESTION
guaifenesin 10 ml PO Q6HPRN PRN COUGH 02/03/25 02/03/25 History
mirtazapine 15 mg tablet 15 mg PO HS 02/03/25 02/03/25 History
oxycodone 5 mg tablet 2.5 mg PO DAILYPRN PRN SEVER PAIN 02/03/25 02/03/25 History
Review of Systems
-
unable to obtain as pt is confused
Physical Exam
Vital Signs
Vital Signs
Temp Pulse Resp BP Pulse Ox
97.6 F 63 17 106/45 99
02/03/25 15:50 02/03/25 15:50 02/03/25 15:50 02/03/25 15:50 02/03/25 15:50
Lab Results
WBC 8.1 10^3/uL (4.8-10.8) 02/03/25 09:02
RBC 3.79 10^6/uL (4.20-5.40) L 02/03/25 09:02
Hgb 11.4 g/dL (12.0-16.0) L 02/03/25 09:02
Hct 35.0 % (37.0-47.0) L 02/03/25 09:02
Plt Count 102 10^3/uL (130-400) L 02/03/25 09:02
Sodium 136 mmol/L (135-145) 02/03/25 09:02
Potassium 3.9 mmol/L (3.5-5.1) 02/03/25 10:03
Chloride 107 mmol/L (98-107) 02/03/25 09:02
Carbon Dioxide 18 mmol/L (22-30) L 02/03/25 09:02
BUN 92 mg/dl (7-17) H 02/03/25 09:02
Creatinine 4.8 mg/dL (0.6-1.0) H* 02/03/25 09:02
eGFR 9.11 02/03/25 09:02
Glucose 127 mg/dl (70-99) H 02/03/25 09:02
Calcium 8.4 mg/dl (8.4-10.2) 02/03/25 09:02
Usc-U-Uxzyopszqad Pept > 29683 pg/ml 02/03/25 09:02
Albumin Cancelled 02/03/25 09:02
Physical Exam
General: Awake, Alert and No Distress
HEENT: EOMI, Anicteric and Facial Symmetry
Respiratory: Clear, Normal Excursion and Nonlabored Respirations
Cardiac: S1/S2 and Regular Rate/Rhythm
Breast: Deferred by me
Abdomen: Soft, Nondistended and Other (mild TTP gen, left colostomy +)
Musculoskeletal: Edema (1+chr)
Skin: No Rash and Warm
Neuro: Other (unable to assess as pt is confused)
Psych: Other (unable to assess as pt is confused)
Data Reviewed
-
Radiology: Report Reviewed by me and Discussed with Patient
Labs: Labs Reviewed by me and Discussed with Patient
Assessment/Plan
-
Assessment:
Acute metabolic encephalopathy
Acute hypoxemic respiratory insufficient
Possible community-acquired pneumonia
ESRD-HD MWF through [facility], started 10/2024
Metabolic acidosis
Anemia of CKD
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
Heart failure reduced ejection fraction EF 30-35%
pulm HTN
CAD s/p CABG
PAD s/p left first toe amputation
Paroxysmal atrial fibrillation
Ileostomy
Stage IV sacral decubitus ulcer, [employer]
Lymphedema
Plan:
A/w AMS, suspect to have PNA
plan HD today per schedule
BP soft, low dose of midodrine with HD
limited UF
abx per primary
[2025-02-03 16:33] LABS: Glucose - Point of Care 119 mg/dl (70-99)
--- NOTE | 2025-02-03 16:34 | W.PN.NEPH.HD ---
Assessment
-
pt seen during HD
vitals stable
UF as able
CXR noted, ?PNA
CVC functions well
Progress Note - Hemodialysis
-
Date of Service: February 03, 2025
Duration: 30 minutes and 3 hours
Potassium Bath: 3
Calcium Bath: 2.5
Opti-Dialyzer: 160
Ultrafiltration: Other (1.5-2kg)
Blood Flow: 400
Dialysate Flow: 600
Heparin: no
EPO: no
--- NOTE | 2025-02-03 16:37 | WOUNDNOTE ---
LEFT ISCHIAL WOUND
--- NOTE | 2025-02-03 16:38 | WOUNDNOTE ---
LEFT ISCHIAL WOUND 1950 [id number]
--- NOTE | 2025-02-03 16:39 | WOUNDNOTE ---
SACRAL WOUND 1950 [id number]
[2025-02-03] MEDS: ProAmatine 2.5 MG PO (17:04)
[2025-02-03] MEDS: TYLENOL 650 MG PO (17:17)
[2025-02-03] MEDS: ROCEPHIN 1000 MG IV (17:18)
[2025-02-03] MEDS: NOVOLOG FLEXPEN-MODERATE RESISTANCE SC (17:43)
[2025-02-03 18:41] LABS: Hepatitis B Surface Antibody Negative
[2025-02-03] MEDS: ELIQUIS 5 MG PO (20:57)
[2025-02-03] MEDS: BUSPAR 5 MG PO (20:57)
[2025-02-03] MEDS: REMERON 7.5 MG PO (20:57)
[2025-02-03] MEDS: LIPITOR 40 MG PO (20:57)
[2025-02-03] MEDS: ZADITOR BOTH EYES (20:58)
[2025-02-03 21:23] LABS: Glucose - Point of Care 107 mg/dl (70-99)
[2025-02-03] MEDS: LANTUS 0.14 UNITS SC (23:05)
[2025-02-04] VITALS (9 sets, daily range): BP systolic 94–128; BP diastolic 33–66; PULSE 60; O2SAT 95; BMI 24.0
[2025-02-04 08:00] LABS: Glucose - Point of Care 80 mg/dl (70-99)
[2025-02-04 09:06] LABS: % Basophils 0.1 % (0-2); % Eosinophils 0.8 % (0-6); % Immature Granulocytes 0.8 % (0-0.5); % Lymphocytes 8.6 % (20.5-51.1); % Neutrophils 80.7 % (42.2-75.2); Absolute Eosinophils 0.1 10^3/uL (0-0.7); Absolute Immature Granulocytes 0.1 10^3/uL (0-0.05); Absolute Lymphocytes 0.6 10^3/uL (1.2-3.4); Absolute Monocytes 0.7 10^3/uL (0.1-0.6); Hematocrit 37.2 % (37.0-47.0); Mean Corp Hgb Conc. 32.3 g/dL (33.0-37.0); Mean Corpuscular Hgb 29.7 pg (27.0-31.0); Mean Corpuscular Volume 92.1 fL (81.0-99.0); Mean Platelet Volume 9.9 fL (7.4-10.4); Nucleated Red Blood Cells % 0 %; Platelet Count 118 10^3/uL (130-400); Red Blood Cell Count 4.04 10^6/uL (4.20-5.40); Red Cell Dist. Width 16.2 % (11.5-14.5); White Blood Cell Count 7.4 10^3/uL (4.8-10.8)
[2025-02-04 09:44] LABS: Blood Urea Nitrogen 31 mg/dl (7-17); Carbon Dioxide 23 mmol/L (22-30); Chloride 100 mmol/L (98-107); Estimated Creatinine Clearance 17 ml/min; Glucose 81 mg/dl (70-99); Potassium 3.2 mmol/L (3.5-5.1); Sodium 136 mmol/L (135-145); eGFR 19.02
[2025-02-04] MEDS: FEOSOL 325 MG PO (09:57)
[2025-02-04] MEDS: IMDUR (EXTENDED RELEASE) 30 MG PO (09:57)
[2025-02-04] MEDS: PROTONIX 40 MG PO (09:57)
[2025-02-04] MEDS: BUSPAR 5 MG PO ×2 (09:57→22:03)
[2025-02-04] MEDS: VITAMIN B-12 1000 MCG PO (09:57)
[2025-02-04] MEDS: ELIQUIS 5 MG PO ×2 (09:57→22:02)
[2025-02-04] MEDS: TOPROL XL 25 MG PO (09:57)
[2025-02-04 09:58] LABS: Calcium 8.2 mg/dl (8.4-10.2)
[2025-02-04] MEDS: ZADITOR 1 DROP BOTH EYES (09:58)
[2025-02-04] MEDS: NOVOLOG FLEXPEN-MODERATE RESISTANCE SC ×3 (09:58→17:40)
[2025-02-04] MEDS: KCL 270 MEQ IV (10:44)
[2025-02-04] MEDS: TYLENOL 650 MG PO ×2 (11:13→22:02)
[2025-02-04] MEDS: NOVOLOG FLEXPEN SC ×3 (11:22→17:40)
--- NOTE | 2025-02-04 12:20 | PTCARENOTE ---
bp 100/40 manual. pt is drowsy and oriented to person and place, unchanged this shift. MD made aware via TT. will continue to monitor.
[2025-02-04 12:59] LABS: Glucose - Point of Care 95 mg/dl (70-99)
[2025-02-04] MEDS: ROCEPHIN 1000 MG IV (14:18)
[2025-02-04] MEDS: VIBRAMYCIN 260 MG IV ×2 (14:19→23:45)
--- NOTE | 2025-02-04 15:37 | W.PN.HOSP.TC ---
Today's Communication/Plan
-
Continue Abx
Repeat CXR
Check VBG
Monitor MSE
Assessment / Plan
Assessment / Plan
#Acute metabolic encephalopathy
#Acute hypoxemic respiratory insufficient
#Possible community-acquired pneumonia
-Differential diagnosis for etiology include pneumonia versus bronchitis versus uremia
-ED concern for pneumonia however no leukocytosis on labs, no fevers reported
-BUN is high at 91 however has had BUN at that level or higher previously without encephalopathy documented
-Would doubt that this is hypoxemia driven as no significant hypoxemia documented
-In the ED was started on cefepime; last hospital stay in November, low suspicion for HAP
-On exam she does not have any focal neurological deficits that would indicate MRI
-Nephrology consulted to resume hemodialysis as below
-Mental status slightly improved, AAO x 2 as of 02/04
Plan
-Continue empiric antibiotics with ceftriaxone and doxycycline for CAP
-Repeat chest x-ray today due to reduced right lung base sounds
-No utility to checking procalcitonin due to end-stage renal disease
-Check sputum culture, trend CBC and temperature curve
-Wean oxygen for SpO2 goal >90%
-Monitor MSE closely, consider MRI if FND present
#Biventricular heart failure
#HFrEF secondary to ischemic cardiomyopathy
#Pulmonary hypertension
-Last echocardiogram with LVEF of 35%, RV dilation and reduced systolic function
-Home GDMT includes beta-adrian; not currently on any standing diuretic regimen
-Volume status maintained with dialysis; hypervolemic on 02/03 predialysis
-Will continue to monitor volume status closely
#CAD s/p CABG
#PAD s/p left first toe amputation
-Significant ischemic disease likely related to poorly controlled diabetes over time
-Home medications include high intensity statin; no antiplatelets but is on Eliquis for AF
-Also takes isosorbide and beta-adrian for CAD history
#Paroxysmal atrial fibrillation
-Nonvalvular; no known history of EP interventions
-Home regimen includes Eliquis and metoprolol succinate
-Heart rate currently WNL, but in AF with ventricular pacing
#End-stage renal disease on HD M//
#Anemia of chronic disease
#Renal osteodystrophy
-Secondary to diabetic nephropathy and hypertensive nephropathy
-Complicated by bone mineral disease and anemia; no significant acidemia
-Home regimen does not currently include phosphate binders or bicarbonate
-Nephrology consulted to resume hemodialysis sessions here
#IDDM C/B microvascular ischemia
#Retinopathy
#Neuropathy
#Nephropathy
-Home regimen includes Lantus 14 units nightly, NovoLog 6 units with meals
-Significant microvascular and macrovascular disease complications
-Will add additional sliding scale insulin with Accu-Cheks while inpatient
-Blood glucose goal 140-108
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
-Wound care and monitor for infection
-Offloading protocol
#Lymphedema
-Seems asymmetric with LLE > RLE
-Will continue to monitor, order compression stocking
#H/O Jonathan's procedure and ostomy
-Wound care/ostomy
-Monitor surrounding area for infection
#S/p PPM
-Likely placed for sick sinus syndrome or AV block
-No signs of pacemaker dysfunction currently
DVT prophylaxis: Home Eliquis
Diet: Standard renal
CODE STATUS: DNR, confirmed with [facility]
Anticipated Discharge: > 48 hours
Subjective/Interval History
-
Date of Service: February 04, 2025
Seen and examined at bedside. No acute events reported overnight. AFVSS as of this morning.
Mental status seems slightly improved, AAO x 2 today but cannot recall her name (?)
She denies any new complaints as of this morning.
Objective Data
-
Labs:
Laboratory Results
02/04/25
08:42
WBC 7.4
Hgb 12.0
Hct 37.2
Plt Count 118 L
Sodium 136
Potassium 3.2 L
Chloride 100
Carbon Dioxide 23
BUN 31 H
Creatinine 2.6 H
Glucose 81
Calcium 8.2 L
Vital Signs:
Vital Signs
Temp Pulse Resp BP Pulse Ox
98.7 F 62 18 100/40 97
02/04/25 11:45 02/04/25 11:45 02/04/25 11:45 02/04/25 12:20 02/04/25 11:45
I&O
02/03/25 02/04/25 02/05/25
06:59 06:59 07:59
Intake Total 260 / 260
Output Total 350 / 350
Balance -350 / -350 260 / 260
Review of Systems
-
History Source: Patient
All other systems: Reviewed and negative
Physical Exam
-
General: Well Developed, No Apparent Distress and Comfortable
HEENT: Normocephalic, Atraumatic and Moist Mucous Membranes
Respiratory: Non Labored Respirations and Decreased Breath Sounds (Right lung base); Negative Wheezes, Rales, Rhonchi or Accessory Resp Muscle Use
Cardiac: Regular Rhythm and S1/S2; Negative Murmur, Rub or Gallop
GI: Soft, Nontender, Nondistended and Normal Bowel Sounds
Musculoskeletal: No Clubbing, No Cyanosis and No Edema
Skin: Warm, Dry and Normal Turgor; Negative Rash
Neuro: Other (AAO x 2, no focal deficits, cranial nerves grossly intact)
Psych: Calm
Data Reviewed
-
Labs: Labs Reviewed by me and Discussed with Patient
[2025-02-04] MEDS: NSS 250 IV (16:37)
[2025-02-04 16:53] LABS: Venous Blood Gas B.E. -2.7 mmol/L (-4 to +4); Venous Blood Gas HCO3 25.7 mmol/L (22-27); Venous Blood Gas pCO2 60 mmHg (35-48); Venous Blood Gas pH 7.24 (7.32-7.43); Venous Blood Gas pO2 39 mmHg (30-50)
--- NOTE | 2025-02-04 17:06 | W.PN.NEPH.PH ---
Today's Communication / Plan
-
HD Thursday, prn midodrine
Assessment/Plan
-
Assessment:
Acute metabolic encephalopathy
Acute hypoxemic respiratory insufficient
Possible community-acquired pneumonia
ESRD-HD MWF through [facility], started 10/2024
Metabolic acidosis
Anemia of CKD
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
Heart failure reduced ejection fraction EF 30-35%
pulm HTN
CAD s/p CABG
PAD s/p left first toe amputation
Paroxysmal atrial fibrillation
Ileostomy
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
Lymphedema
Plan:
A/w AMS, suspect to have PNA
BP soft, low dose of BB and imdur
will add prn midodrine
renal diet and FR
abx per primary
reaplce k
next HD on Thursday
d/w pt and son at bedside
-
-
Date of Service: February 04, 2025
CC / HPI / ROS
-
Chief Complaint:
ESRD
History of Present Illness:
on RA, no fever
BP soft
k low 3.2
Review of Systems:
no cp or sob
feels well
poor appetite
soft BMs from ostomy
Labs
-
Labs:
WBC 7.4 10^3/uL (4.8-10.8) 02/04/25 08:42
RBC 4.04 10^6/uL (4.20-5.40) L 02/04/25 08:42
Hgb 12.0 g/dL (12.0-16.0) 02/04/25 08:42
Hct 37.2 % (37.0-47.0) 02/04/25 08:42
Plt Count 118 10^3/uL (130-400) L 02/04/25 08:42
Sodium 136 mmol/L (135-145) 02/04/25 08:42
Potassium 3.2 mmol/L (3.5-5.1) L 02/04/25 08:42
Chloride 100 mmol/L (98-107) 02/04/25 08:42
Carbon Dioxide 23 mmol/L (22-30) 02/04/25 08:42
BUN 31 mg/dl (7-17) H 02/04/25 08:42
Creatinine 2.6 mg/dL (0.6-1.0) H 02/04/25 08:42
eGFR 19.02 02/04/25 08:42
Glucose 81 mg/dl (70-99) 02/04/25 08:42
Calcium 8.2 mg/dl (8.4-10.2) L 02/04/25 08:42
Jeq-G-Ysbhqpxjase Pept > 70589 pg/ml 02/03/25 09:02
Albumin Cancelled 02/03/25 09:02
Physical Exam
-
Vital Signs:
Vital Signs
Temp Pulse Resp BP Pulse Ox
97.6 F 62 16 94/38 96
02/04/25 16:00 02/04/25 16:00 02/04/25 16:00 02/04/25 16:11 02/04/25 16:00
Cardiovascular:: Regular rate and rhythm
Respiratory:: Bilateral: Rales (bilat -chr)
Lung Excursion:: Normal
Abdomen:: Nontender and Soft
Extremity Edema:: +1: Bilateral:
Juan Catheter: No
[2025-02-04] MEDS: KCL 40 MEQ PO (17:20)
[2025-02-04 17:35] LABS: Glucose - Point of Care 115 mg/dl (70-99)
[2025-02-04 21:52] LABS: Glucose - Point of Care 105 mg/dl (70-99)
[2025-02-04] MEDS: LANTUS 0.14 UNITS SC (22:02)
[2025-02-04] MEDS: ZADITOR BOTH EYES ×2 (22:03→22:21)
[2025-02-04] MEDS: REMERON 7.5 MG PO (22:03)
[2025-02-04] MEDS: LIPITOR 40 MG PO (22:03)
[2025-02-04] MEDS: ANESTHETIC LOZENGE 1 LOZENGE PO (22:03)
[2025-02-04] MEDS: TUMS CHEWABLE TABLET 200 MG PO (23:45)
[2025-02-04] MEDS: MYLICON 80 MG PO (23:45)
[2025-02-05] VITALS (7 sets, daily range): BP systolic 89–134; BP diastolic 33–52; BMI 24.1
[2025-02-05 05:21] LABS: % Basophils 0.3 % (0-2); % Eosinophils 0.7 % (0-6); % Immature Granulocytes 0.7 % (0-0.5); % Lymphocytes 10.8 % (20.5-51.1); % Monocytes 8.6 % (1.7-9.3); % Neutrophils 78.9 % (42.2-75.2); Absolute Eosinophils 0.1 10^3/uL (0-0.7); Absolute Immature Granulocytes 0.1 10^3/uL (0-0.05); Absolute Lymphocytes 0.8 10^3/uL (1.2-3.4); Absolute Monocytes 0.6 10^3/uL (0.1-0.6); Absolute Neutrophils 5.5 10^3/uL (1.4-6.5); Hematocrit 32.5 % (37.0-47.0); Hemoglobin 10.7 g/dL (12.0-16.0); Mean Corp Hgb Conc. 32.9 g/dL (33.0-37.0); Mean Corpuscular Hgb 30.4 pg (27.0-31.0); Mean Corpuscular Volume 92.3 fL (81.0-99.0); Mean Platelet Volume 10.3 fL (7.4-10.4); Nucleated Red Blood Cells % 0 %; Platelet Count 120 10^3/uL (130-400); Red Blood Cell Count 3.52 10^6/uL (4.20-5.40); Red Cell Dist. Width 16.2 % (11.5-14.5); White Blood Cell Count 6.9 10^3/uL (4.8-10.8)
[2025-02-05 05:47] LABS: Blood Urea Nitrogen 38 mg/dl (7-17); Calcium 8.5 mg/dl (8.4-10.2); Carbon Dioxide 22 mmol/L (22-30); Chloride 107 mmol/L (98-107); Estimated Creatinine Clearance 13 ml/min; Glucose 69 mg/dl (70-99); Potassium 4.5 mmol/L (3.5-5.1); Sodium 138 mmol/L (135-145); eGFR 13.78
[2025-02-05 07:55] LABS: Glucose - Point of Care 64 mg/dl (70-99)
[2025-02-05] MEDS: NOVOLOG FLEXPEN-MODERATE RESISTANCE SC ×3 (07:58→17:27)
[2025-02-05] MEDS: NOVOLOG FLEXPEN SC ×3 (07:58→17:27)
[2025-02-05 08:15] LABS: Glucose - Point of Care 71 mg/dl (70-99)
[2025-02-05] MEDS: IMDUR (EXTENDED RELEASE) 30 MG PO (08:56)
[2025-02-05] MEDS: FEOSOL 325 MG PO (08:56)
[2025-02-05] MEDS: PROTONIX 40 MG PO (08:56)
[2025-02-05] MEDS: TOPROL XL 25 MG PO (08:56)
[2025-02-05] MEDS: BUSPAR 5 MG PO ×2 (08:56→20:58)
[2025-02-05] MEDS: ZADITOR BOTH EYES ×3 (08:56→21:03)
[2025-02-05] MEDS: ELIQUIS 5 MG PO ×2 (08:56→20:58)
[2025-02-05] MEDS: VITAMIN B-12 1000 MCG PO (08:56)
[2025-02-05] MEDS: DUONEB 3 ML INH (09:26)
[2025-02-05 09:29] LABS: Venous Blood Gas B.E. -4.5 mmol/L (-4 to +4); Venous Blood Gas HCO3 22.1 mmol/L (22-27); Venous Blood Gas O2 Sat % 83.4 %; Venous Blood Gas pCO2 46 mmHg (35-48); Venous Blood Gas pH 7.29 (7.32-7.43); Venous Blood Gas pO2 51 mmHg (30-50)
--- NOTE | 2025-02-05 09:52 | RESPNOTE ---
Respiratory: educated patient on Bilevel therapy and patiently tried to acclimate patient to therapy. Patient wore mask for five minutes then refused, pressure started at 12/5 cmH2O then decreased to just 8/4 patient still refused. Patient is
awake, alert, and oriented. RN and Dr. Garces made aware.
[2025-02-05] MEDS: DILAUDID 0.25 MG IV (10:37)
--- NOTE | 2025-02-05 10:38 | PTOTSP ---
Speech Therapy
Presentation: Patient was partially oriented and was easily distracted. Patient's speech appeared to be WNL during conversation. Patient denied any communicative deficits.
Swallowing Function: Patient was not interested in PO trials as she was uncomfortable. Despite re-positioning, patient remained uncomfortable. Patient agreed to 2 sips (straw) of thin liquids in which patient appeared to tolerate as she did not
exhibit any overt clinical s/sx of aspiration. Patient refused solids trials. Per chart and discussion with RN, patient's experiencing poor oral intake.
UI LEAD DEVELOPER spent time educating patient on the importance of oral intake. Patient verbalized an understanding but stated she is not interested in eating. Patient reported being in 20/10 sacral pain, UI LEAD DEVELOPER alerted RN.
Recommendations:
1) UI LEAD DEVELOPER unable to recommend solids at this time but patient tolerated thin liquids (limited PO trials)
2) Consider nutrition consult
3) Medications as tolerated
Plan: UI LEAD DEVELOPER will continue to follow to ensure tolerance; pending hospitalization.
--- NOTE | 2025-02-05 11:39 | W.PN.HOSP.TC ---
Today's Communication/Plan
-
Trial BiPAP if patient willing
DuoNebs 3 times daily and as needed
Continue empiric antibiotics
Hold antihypertensives and give light bolus
Pulm consult for consideration of PFTs
Psychiatry consult for depression
As needed Dilaudid (try to limit with AMS/hypercapnia)
Assessment / Plan
Assessment / Plan
#Acute metabolic encephalopathy
#Acute hypoxemic and hypercapnic respiratory insufficiency
#Possible community-acquired pneumonia
-Differential diagnosis for encephalopathy include infection v. hypercapnia v. pain associated; less likely uremia
-BUN is high at 91 however has had BUN at that level or higher previously without encephalopathy documented
-Was started on antibiotics for suspected community-acquired pneumonia, transition to CTX and azithromycin
-On exam she does not have any focal neurological deficits that would indicate MRI
-Mental status slightly improved, AAO x 3 as of 02/05
-Now on room air with SpO2 in the 90s
Plan
-Continue empiric antibiotics with ceftriaxone and doxycycline for CAP
-Attempt BiPAP trial and trend VBG
-Wean oxygen for SpO2 goal >90%
-Monitor MSE closely, avoid sedatives as possible
-Pulmonary consult, consider bedside PFTs
-Psych consult for depression has below
#Hypotension
-Has had intermittent episodes of soft blood pressure with SBP in the low 90s, fluid responsive
-Likely related to poor oral intake/depression, as well as effect of low-dose Dilaudid
-Has received two 250 mL boluses of IVF here; blood cultures on arrival negative after 48-hour
-Continue to monitor blood pressure and hold antihypertensive agents for now
-MAP goal >65 mmHg
#Depression
-Patient appears depressed; has mentioned to nursing staff that she 'wants to '
-Currently on regimen of buspirone and mirtazapine
-Will consult psych for assistance in further escalation of antidepressant regimen
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
-Associated with significant pain, was tearful morning of 02/05 associated with the pain
-Wound care team following, no signs of infection as of now, on offloading protocol
-Gave low-dose Dilaudid for severe pain, started 0.25 IV every 3 hours as needed
-Will need to cautiously escalate Dilaudid if needed, avoid worsening hypercapnia
#Biventricular heart failure
#HFrEF secondary to ischemic cardiomyopathy
#Pulmonary hypertension
-Last echocardiogram with LVEF of 35%, RV dilation and reduced systolic function
-Home GDMT includes beta-adrian; not currently on any standing diuretic regimen
-Volume status maintained with dialysis; hypervolemic on 02/03 predialysis
-Will continue to monitor volume status closely
#CAD s/p CABG
#PAD s/p left first toe amputation
-Significant ischemic disease likely related to poorly controlled diabetes over time
-Home medications include high intensity statin; no antiplatelets but is on Eliquis for AF
-Also takes isosorbide and beta-adrian for CAD history
#Paroxysmal atrial fibrillation
-Nonvalvular; no known history of EP interventions
-Home regimen includes Eliquis and metoprolol succinate
-Heart rate currently WNL, but in AF with ventricular pacing
#End-stage renal disease on HD M//
#Anemia of chronic disease
#Renal osteodystrophy
-Secondary to diabetic nephropathy and hypertensive nephropathy
-Complicated by bone mineral disease and anemia; no significant acidemia
-Home regimen does not currently include phosphate binders or bicarbonate
-Nephrology consulted to resume hemodialysis sessions here
#IDDM C/B microvascular ischemia
#Retinopathy
#Neuropathy
#Nephropathy
-Home regimen includes Lantus 14 units nightly, NovoLog 6 units with meals
-Significant microvascular and macrovascular disease complications
-Will add additional sliding scale insulin with Accu-Cheks while inpatient
-Blood glucose goal 140-108
#Lymphedema
-Seems asymmetric with LLE > RLE
-Will continue to monitor, order compression stocking
#H/O Jonathan's procedure and ostomy
-Wound care/ostomy
-Monitor surrounding area for infection
#S/p PPM
-Likely placed for sick sinus syndrome or AV block
-No signs of pacemaker dysfunction currently
DVT prophylaxis: Home Eliquis
Diet: Standard renal
CODE STATUS: DNR, confirmed with [facility]
Anticipated Discharge: > 48 hours
Subjective/Interval History
-
Date of Service: February 05, 2025
Seen and examined at bedside. No acute events reported overnight. AFVSS on room air
VBG did return positive with CO2 60. She complains of severe sacral pain, tearful at time of my assessment.
AAOx3 as of this morning, slowly improving mental status.
Objective Data
-
Labs:
Laboratory Results
02/05/25
04:40
WBC 6.9
Hgb 10.7 L
Hct 32.5 L
Plt Count 120 L
Sodium 138
Potassium 4.5 D
Chloride 107
Carbon Dioxide 22
BUN 38 H
Creatinine 3.4 H
Glucose 69 L
Calcium 8.5
Vital Signs:
Vital Signs
Temp Pulse Resp BP Pulse Ox
97.6 F 61 18 97/42 96
02/05/25 11:05 02/05/25 11:05 02/05/25 11:05 02/05/25 11:10 02/05/25 11:05
I&O
02/04/25 02/05/25 02/06/25
05:59 06:59 06:59
Intake Total
Output Total
Balance
Review of Systems
-
History Source: Patient
All other systems: Reviewed and negative
Physical Exam
-
General: Well Developed, Well Nourished, Pain and Appears Chronically Ill
HEENT: Normocephalic, Atraumatic and Moist Mucous Membranes
Respiratory: Clear to Auscultation and Non Labored Respirations
Cardiac: Regular Rhythm and S1/S2; Negative Murmur, Rub or Gallop
GI: Soft, Nontender, Nondistended, Normal Bowel Sounds and Ostomy
Musculoskeletal: No Clubbing, No Cyanosis and No Edema
Skin: Warm and Dry; Negative Rash
Neuro: AO x 3 and Nonfocal/Grossly Intact; Negative Tremors
Psych: Depressed
Data Reviewed
-
Labs: Labs Reviewed by me and Discussed with Physician (Textile Scrap Salvager, psychiatrist)
[2025-02-05] MEDS: NSS 250 IV (11:47)
[2025-02-05 11:51] LABS: Glucose - Point of Care 118 mg/dl (70-99)
--- NOTE | 2025-02-05 11:58 | CM ---
Placed a call to patient's son to attempt to obtain information for assessment. There was no answer and no voice mail to leave message. Will attempt again.
[2025-02-05] MEDS: VIBRAMYCIN 260 MG IV ×2 (12:13→23:01)
--- NOTE | 2025-02-05 13:51 | W.PN.UPDATE ---
Update Note
Progress Note Update
Approached pt to offer psychiatric consultation; she declined, asked me to go away and leave her alone. Pt alert, resting calmly in bed watching TV, with dysphoric affect. Pt was advised she can request Psychiatry if she changes her mind.
Psychiatry will sign off. Please re-consult for any immediate concerns.
--- NOTE | 2025-02-05 14:22 | W.PN.NEPH.PH ---
Today's Communication / Plan
-
HD tomorrow with limited UF
Assessment/Plan
-
Assessment:
Acute metabolic encephalopathy
Acute hypoxemic respiratory insufficient
Possible community-acquired pneumonia
ESRD-HD MWF through [facility], started 10/2024
Metabolic acidosis
Anemia of CKD
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
Heart failure reduced ejection fraction EF 30-35%
pulm HTN
CAD s/p CABG
PAD s/p left first toe amputation
Paroxysmal atrial fibrillation
Ileostomy
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
Lymphedema
Plan:
A/w AMS, suspect to have PNA
BP soft, agree with bolus
holding parameters for low dose of BB and imdur
cont prn midodrine
renal diet and FR
abx per primary
seem depressed but pt refused to see psych
next HD on Thursday
d/w pt
-
-
Date of Service: February 05, 2025
CC / HPI / ROS
-
Chief Complaint:
ESRD
History of Present Illness:
on RA, no fever
BP soft
k normal
Review of Systems:
no cp or sob
poor appetite
gen abd pain not letting me touch -not sure if chr issue
Labs
-
Labs:
WBC 6.9 10^3/uL (4.8-10.8) 02/05/25 04:40
RBC 3.52 10^6/uL (4.20-5.40) L 02/05/25 04:40
Hgb 10.7 g/dL (12.0-16.0) L 02/05/25 04:40
Hct 32.5 % (37.0-47.0) L 02/05/25 04:40
Plt Count 120 10^3/uL (130-400) L 02/05/25 04:40
Sodium 138 mmol/L (135-145) 02/05/25 04:40
Potassium 4.5 mmol/L (3.5-5.1) D 02/05/25 04:40
Chloride 107 mmol/L (98-107) 02/05/25 04:40
Carbon Dioxide 22 mmol/L (22-30) 02/05/25 04:40
BUN 38 mg/dl (7-17) H 02/05/25 04:40
Creatinine 3.4 mg/dL (0.6-1.0) H 02/05/25 04:40
eGFR 13.78 02/05/25 04:40
Glucose 69 mg/dl (70-99) L 02/05/25 04:40
Calcium 8.5 mg/dl (8.4-10.2) 02/05/25 04:40
Cnd-R-Sexazjenbds Pept > 38799 pg/ml 02/03/25 09:02
Albumin Cancelled 02/03/25 09:02
Physical Exam
-
Vital Signs:
Vital Signs
Temp Pulse Resp BP Pulse Ox
97.6 F 61 18 97/42 96
02/05/25 11:05 02/05/25 11:05 02/05/25 11:05 02/05/25 11:10 02/05/25 11:05
Cardiovascular:: Regular rate and rhythm
Lung Excursion:: Normal (decreased BS )
Abdomen:: Soft
Extremity Edema:: +1: Bilateral:
Juan Catheter: No
[2025-02-05] MEDS: ROCEPHIN 1000 MG IV (15:24)
[2025-02-05] MEDS: STERILE WATER FOR INJECTION 10 ML IV (15:24)
--- NOTE | 2025-02-05 16:46 | CON.PUL ---
Consultation
Consultation Request
Date/Time Consultation Requested: 02/05/2025
Date/Time Consultation Performed: 02/05/2025
Requesting Provider: Jesus Roldan
Performing Provider: Michael Romero
Reason for Consultation: Hypercapnic respiratory failure
Medical History
-
Chief Complaint: Altered mental status
History of Present Illness:
74-year-old female with ischemic cardiomyopathy with biventricular failure (LVEF 35%), pulmonary hypertension, CAD s/p CABG, PAD s/p left first toe amputation, AF on Eliquis, IDDM C/B retinopathy and nephropathy, ESRD on HD M/W/F, HTN, HLD, chronic
anemia, stage IV sacral decubitus ulcer, lymphedema, H/O Hodgkin's lymphoma (1988), S/P colostomy/Jonathan procedure, S/P PPM who presented to the hospital today with change in mental status. Per EMS patient from group home, where staff noticed
she was more confused than usual and AAO x 1 on evaluation. Patient denied any complaints but stated everything hurt. Upon arrival to the ED AFVSS on 2 L of oxygen with SpO2 100%. Initial labs with hemoglobin 11.4, BUN 92, creatinine 4.8, bicarb
18. No leukocytosis, COVID/flu testing negative. Chest x-ray showed mild bibasilar opacification concerning for atelectasis versus pneumonia but no obvious consolidation on my read. CT A/P without contrast showed patchy areas of parenchymal
opacity in the left lower lobe again suspicious for pneumonia versus atelectasis as well as signs of lower lobe bronchitis. CT head without contrast with signs of sinusitis but otherwise no acute neurological findings. ED started antibiotics with
cefepime and doxycycline. Nephrology was alerted for dialysis.
Patient had blood gas performed on 307 which was a VBG 7.24, pCO2 60. Pulmonology service was contacted this morning for possible BiPAP therapy.
Patient denies any known history of COPD or asthma. She reports remote history of smoking when she was in her teens and quit by age 32. She denies having used any inhalers in the past and did not have asthma growing up.
ESRD on HD since 10/2024 , heart failure reduced ejection fraction 30%, coronary artery disease/CABG, paroxysmal atrial fibrillation, lymphedema, non-Hodgkin's lymphoma, Diazemuls type II, ileostomy, diverticulitis, hypertension, GERD,
hyperlipidemia, obesity, pulmonary hypertension, Charcot foot, left ankle fusion, left great toe amputation, cholecystectomy, pacemaker
Past Surgical History: Other (Left great toe amputation PPM Placement CABG x 3 Left Ankle Fusion Ex Lap / Sigmoid Resection / End Colostomy Cholecystectomy)
Social History
Tobacco: Former Smoker
Alcohol: None
Drug: None
Living: Long Term
Family History
Family History: Not Pertinent
Allergies / Home Medications
Allergies
Allergy/AdvReac Type Severity Reaction Status Date / Time
erythromycin base Allergy Unknown Verified 02/03/25 08:46
Iodinated Contrast Media Allergy Unknown Verified 02/03/25 08:46
[Iodinated Contrast Media -
IV Dye]
prednisone Allergy Unknown Verified 02/03/25 08:46
sulfamethoxazole Allergy Unknown Verified 02/03/25 08:46
[From Bactrim]
trimethoprim [From Bactrim] Allergy Unknown Verified 02/03/25 08:46
vancomycin Allergy Itching Verified 02/03/25 08:46
AND RED
SCALP
Home Medications
�Medication �Instructions �Recorded �Confirmed �Last Taken �Type
atorvastatin 40 mg tablet (Lipitor) 40 mg PO HS High cholesterol 02/18/23 02/03/25 09/09/24 History
buspirone 5 mg tablet 5 mg PO BID anxiety 02/18/23 02/03/25 09/09/24 History
apixaban 5 mg tablet (Eliquis) 5 mg PO BID Blood Clot 11/02/24 02/03/25 Unknown History
Prevention/Tx
cyanocobalamin (vitamin B-12) 1,000 mcg PO DAILY Supplement 11/02/24 02/03/25 Unknown History
1,000 mcg tablet
ferrous sulfate 325 mg (65 mg 325 mg PO NOON Supplement 11/02/24 02/03/25 Unknown History
iron) tablet
isosorbide mononitrate 30 mg 30 mg PO DAILY Heart 11/02/24 02/03/25 Unknown History
tablet,extended release 24 hr Disease/Condition
omeprazole 40 mg capsule,delayed 40 mg PO DAILY Gastrointestinal 11/02/24 02/03/25 Unknown History
release Issue
benzocaine 6 mg-menthol 10 mg 1 reagan PO Q4HPRN PRN sore throat 12/05/24 02/03/25 Unknown Rx
lozenges (Chloraseptic Sore Throat) #30 ea
insulin aspart U-100 100 unit/mL 6 unit (0.06 mL) SC AC diabetes 12/05/24 02/03/25 Unknown Rx
(3 mL) subcutaneous pen (Novolog #0 mL
FlexPen U-100 Insulin aspart)
insulin glargine 100 unit/mL (3 14 unit (0.14 mL) SC Diabetes 12/05/24 02/03/25 Unknown Rx
mL) subcutaneous pen (Lantus #0 mL
Solostar U-100 Insulin)
metoprolol succinate 25 mg 25 mg PO DAILY #30 tabs 12/05/24 02/03/25 Unknown Rx
tablet,extended release 24 hr
acetaminophen 325 mg tablet 650 mg PO Q6HPRN PRN mild pain 02/03/25 02/03/25 Unknown History
bisacodyl 10 mg rectal suppository 10 mg AR DAILYPRN PRN NO RESULTS 02/03/25 02/03/25 Unknown History
FROM MOM
dextromethorphan HBr 1 tsp PO Q6HPRN PRN 02/03/25 02/03/25 Unknown History
COUGH,CONGESTION
guaifenesin 10 ml PO Q6HPRN PRN COUGH 02/03/25 02/03/25 Unknown History
mirtazapine 15 mg tablet 15 mg PO HS 02/03/25 02/03/25 Unknown History
oxycodone 5 mg tablet 2.5 mg PO DAILYPRN PRN SEVER PAIN 02/03/25 02/03/25 Unknown History
Review of Systems
-
Hematologic/Lymphatic: Other (All 14 systems reviewed and negative except as stated above in the history of present illness.)
Vitals / Labs / Diagnostic Testing
Vital Signs
Temp Pulse Resp BP Pulse Ox
98.1 F 61 17 100/36 96
02/05/25 15:06 02/05/25 15:06 02/05/25 15:06 02/05/25 15:06 02/05/25 15:06
Lab Data
02/05/25 04:40
02/05/25 04:40
Microbiology
02/03/25 10:39 Blood/Venous Blood Culture - Preliminary
No Growth in 48 hours- Final report to follow
02/03/25 10:39 Blood/Venous Blood Culture - Preliminary
No Growth in 48 hours- Final report to follow
02/03/25 10:03 Urine Urine Culture - Final
NO GROWTH
02/03/25 09:02 Nasal Swab Influenza Types A & B (PATSY) - Final
Negative for Influenza A & B, NAAT
Negative results must be combined with clinical observations
and patient history.
Nucleic Acid Amplification test (NAAT)performed on the
[employer] platform.
Diagnostic Testing:
Physical Exam
-
HEENT: Normocephalic
Cardiovascular: S1/S2
Respiratory: Clear and Non-Labored Respirations
GI: Soft and Non Distended
Neurology: Awake and Alert
Skin: Warm
General: Comfortable
Assessment
-
74-year-old female with known history of end-stage renal disease on dialysis, biventricular heart failure, paroxysmal A-fib, depression, sacral decub's was admitted to the hospital with altered mental status. CT head was unremarkable and it was
felt that her encephalopathy is related to metabolic etiologies. Her admission VBG showed mild hypercapnia. Pulmonary consultation was requested this morning to evaluate for need for BiPAP and if bedside spirometry is indicated to evaluate for
obstructive airway disease.\\
#1. Acute encephalopathy, suspect metabolic.
VBG performed today, 02/05, 7.29, pCO2 46. Patient during my exam had no wheezing and no prior reported history of COPD, asthma or emphysema.
-No indication for BiPAP therapy, suspect her altered mental status is related to metabolic encephalopathy rather than hypercapnic respiratory failure
-Minimize sedating medications, agree with the psychiatry consult
-Avoid benzodiazepines and minimize opiates
#2. Remote history of smoking. Patient reports she was a light smoker sometime in her late teen years and she quit in her 30s. She does not report any history of asthma growing up and does not use any inhalers at home. No prior known diagnosis
of COPD or emphysema.
-No indication for inhaler therapy
-Once patient recovers from acute illness and is euvolemic, we can perform full pulmonary function testing to evaluate further
-In the setting of heart failure and volume overload, bedside spirometry will not be reliable
#3. Pneumonia, multifocal, Community acquired
-X-ray and CT scan reviewed suspicious for patchy areas of parenchymal opacities. Differential diagnosis includes atelectasis, volume overload and pneumonia.
-Influenza screen negative, blood cultures have been negative so far
-Continue on ceftriaxone and doxycycline. Patient is otherwise afebrile and has normal WBC count, reports improving cough and shortness of breath. Suspect some of this improvement is related to volume removal with dialysis.
Other medical issues:
-Coronary artery disease status postcoronary bypass graft
-Paroxysmal atrial fibrillation
-End-stage renal disease on HD, Thursday, currently volume overloaded
-Diabetes mellitus with retinopathy, neuropathy and nephropathy
-History of Mireles's procedure and ostomy
-Status post permanent pacemaker placement
-Heart failure with reduced ejection fraction, EF 30 to 35%
-History of depression
-Stage IV sacral ulcer
Pulmonary service will follow
Total time spent on this consultation/encounter _60___ minutes which includes review of history, physical exam, medications, laboratory data, personal review of imaging, extensive review of outpatient records, discussion with care team and
respiratory therapy.
CT Chest 01/2025:
Within the posterior and inferior aspect of the left lower lobe of the lung, patchy areas of parenchymal opacity, increased from prior CT examination, with morphologic appearance suspicious for pneumonia, although atelectasis could have a similar
appearance. There also appears to be some bronchial wall thickening, suggesting bronchitis.
Mild patchy parenchymal disease within the inferior lingula, with main differential considerations of pneumonia and/or atelectasis.
Parenchymal opacity within the posterior and inferior right lower lobe has more linear configuration, suggestive of discoid atelectasis. There is also mild bronchial wall thickening in the right lower lobe, suggesting bronchitis.
No significant pleural effusions bilaterally. No significant pericardial effusion. Dense calcification of the mitral annulus.
[2025-02-05 17:16] LABS: Glucose - Point of Care 134 mg/dl (70-99)
[2025-02-05] MEDS: ANESTHETIC LOZENGE 1 LOZENGE PO ×2 (17:52→22:31)
[2025-02-05] MEDS: REMERON 7.5 MG PO (21:00)
[2025-02-05] MEDS: LIPITOR 40 MG PO (21:00)
[2025-02-05 21:58] LABS: Glucose - Point of Care 168 mg/dl (70-99)
[2025-02-05] MEDS: LANTUS 0.14 UNITS SC (22:16)
[2025-02-06] MEDS: ANESTHETIC LOZENGE 1 LOZENGE PO ×4 (02:36→21:53)
[2025-02-06 03:23] VITALS: BP 108/53
[2025-02-06] MEDS: DILAUDID 0.25 MG IV ×3 (03:34→21:54)
[2025-02-06 06:00] VITALS: BMI 24.6
[2025-02-06 06:22] LABS: Venous Blood Gas B.E. -6.9 mmol/L (-4 to +4); Venous Blood Gas HCO3 19.2 mmol/L (22-27); Venous Blood Gas O2 Sat % 98.3 %; Venous Blood Gas pCO2 40 mmHg (35-48); Venous Blood Gas pH 7.29 (7.32-7.43); Venous Blood Gas pO2 78 mmHg (30-50)
[2025-02-06 06:37] LABS: % Basophils 0.2 % (0-2); % Eosinophils 1.8 % (0-6); % Lymphocytes 11.3 % (20.5-51.1); % Monocytes 9.3 % (1.7-9.3); % Neutrophils 76.4 % (42.2-75.2); Absolute Eosinophils 0.1 10^3/uL (0-0.7); Absolute Immature Granulocytes 0.1 10^3/uL (0-0.05); Absolute Lymphocytes 0.7 10^3/uL (1.2-3.4); Absolute Monocytes 0.6 10^3/uL (0.1-0.6); Absolute Neutrophils 4.8 10^3/uL (1.4-6.5); Hematocrit 30.3 % (37.0-47.0); Hemoglobin 9.9 g/dL (12.0-16.0); Mean Corp Hgb Conc. 32.7 g/dL (33.0-37.0); Mean Corpuscular Hgb 30.6 pg (27.0-31.0); Mean Corpuscular Volume 93.5 fL (81.0-99.0); Mean Platelet Volume 9.6 fL (7.4-10.4); Nucleated Red Blood Cells % 0 %; Platelet Count 136 10^3/uL (130-400); Red Blood Cell Count 3.24 10^6/uL (4.20-5.40); Red Cell Dist. Width 15.9 % (11.5-14.5); White Blood Cell Count 6.3 10^3/uL (4.8-10.8)
[2025-02-06 07:26] LABS: Blood Urea Nitrogen 45 mg/dl (7-17); Calcium 8.5 mg/dl (8.4-10.2); Carbon Dioxide 17 mmol/L (22-30); Chloride 110 mmol/L (98-107); Estimated Creatinine Clearance 11 ml/min; Glucose 75 mg/dl (70-99); Potassium 4.4 mmol/L (3.5-5.1); Sodium 137 mmol/L (135-145); eGFR 11.69
[2025-02-06 07:37] VITALS: BP 110/42
[2025-02-06 08:15] LABS: Glucose - Point of Care 92 mg/dl (70-99)
[2025-02-06] MEDS: BUSPAR 5 MG PO ×2 (08:15→19:50)
[2025-02-06] MEDS: PROTONIX 40 MG PO (08:15)
[2025-02-06] MEDS: TUMS CHEWABLE TABLET 200 MG PO (08:15)
[2025-02-06] MEDS: ELIQUIS 5 MG PO ×2 (08:15→19:50)
[2025-02-06] MEDS: TOPROL XL 25 MG PO (08:15)
[2025-02-06] MEDS: FEOSOL 325 MG PO (08:15)
[2025-02-06] MEDS: VITAMIN B-12 1000 MCG PO (08:15)
[2025-02-06] MEDS: ZADITOR BOTH EYES ×2 (08:16→19:50)
--- NOTE | 2025-02-06 09:04 | WOUNDNOTE ---
ISCHIUM AND SACRUM
--- NOTE | 2025-02-06 09:04 | WOUNDNOTE ---
[facility] RN NOTE: Patient visited today for skin assessment and wound care. Right heel with stage 1 PI. No-sting barrier and and adhesive foam applied to bilateral heels. Left ischial and sacral PI appear stable when compared to assessment from 02/03.
Patient is on a static air overlay and was placed in right semi-side lying position. Diaper removed. Heels off-loaded with pillows under calves. Patient ate 75% of breakfast. Colostomy appliance intact, no drainage noted. This screenplay writer offered to
change ostomy appliance but patient refused. More mesalt packing gauze ordered from [facility] by this screenplay writer. RN, Kaylie aware. Will continue to follow as needed.
[2025-02-06] MEDS: NOVOLOG FLEXPEN SC ×3 (09:05→17:44)
[2025-02-06] MEDS: NOVOLOG FLEXPEN-MODERATE RESISTANCE SC ×3 (09:06→17:44)
--- NOTE | 2025-02-06 09:45 | W.PN.PUL.V3 ---
Today's Communication / Plan
-
.
Wean oxygen.
BiPAP as tolerated.
Antibiotics.
Nebulizers.
Dialysis
Assessment
-
74-year-old female with known history of end-stage renal disease on dialysis, biventricular heart failure, paroxysmal A-fib, depression, sacral decub's was admitted to the hospital with altered mental status. CT head was unremarkable and it was
felt that her encephalopathy is related to metabolic etiologies. Her admission VBG showed mild hypercapnia. Pulmonary consultation was requested this morning to evaluate for need for BiPAP and if bedside spirometry is indicated to evaluate for
obstructive airway disease 02/05/25.
Toxic metabolic encephalopathy.
Multifocal community-acquired pneumonia.
Aspiration risk
Other medical issues:
-Coronary artery disease status postcoronary bypass graft
-Paroxysmal atrial fibrillation
-End-stage renal disease on HD, Thursday, currently volume overloaded
-Diabetes mellitus with retinopathy, neuropathy and nephropathy
-History of Mireles's procedure and ostomy
-Status post permanent pacemaker placement
-Heart failure with reduced ejection fraction, EF 30 to 35%
-History of depression
-Stage IV sacral ulcer
Plan
Respiratory status relatively stable.
Continue supplemental oxygen.
Aspiration precautions.
Nebulizers as needed
Mucolytic.
BiPAP if tolerated-refusing..
Follow occasional chest x-ray
Monitor renal function.
Nephrology following-Correspondence reviewed
Hemodialysis per nephrology.
Significant depression and possible suicidal ideations.
Psychiatry asked to see--patient declined..
Check cultures.
Empiric antibiotics-on ceftriaxone and doxycycline
DVT prophylaxis-on Eliquis
GI prophylaxis-on pantoprazole
Nutrition
Early mobilization.
Dr. Lazaro reviewed with nursing
CT Chest 01/2025:
Within the posterior and inferior aspect of the left lower lobe of the lung, patchy areas of parenchymal opacity, increased from prior CT examination, with morphologic appearance suspicious for pneumonia, although atelectasis could have a similar
appearance. There also appears to be some bronchial wall thickening, suggesting bronchitis.
Mild patchy parenchymal disease within the inferior lingula, with main differential considerations of pneumonia and/or atelectasis.
Parenchymal opacity within the posterior and inferior right lower lobe has more linear configuration, suggestive of discoid atelectasis. There is also mild bronchial wall thickening in the right lower lobe, suggesting bronchitis.
No significant pleural effusions bilaterally. No significant pericardial effusion. Dense calcification of the mitral annulus.
Subjective Data
-
Date of Service:
Date of Service: February 06, 2025
Chief Complaint: Pulmonary Follow Up and Dyspnea Follow Up
Subjective:
Refusing psychiatric evaluation, feels about the same, has some chest congestion, no chest pain or abdominal pain, has shortness of breath with exertion
Review of Systems
General: Other (per HPI)
Objective Data
Data Reviewed
Vital Signs / I&O:
Vital Signs
Temp Pulse Resp BP Pulse Ox
97.9 F 70 16 110/42 96
02/06/25 07:37 02/06/25 07:45 02/06/25 07:45 02/06/25 07:37 02/06/25 07:45
Intake and Output
02/05/25 02/06/25 02/07/25
06:59 06:59 06:59
Intake Total 960 / 960
Output Total 375 / 375
Balance 585 / 585
SaO2: 96
Nasal Cannula flow liters per minute: 2
Physical Exam
General: Respiratory Distress (n) and Comfortable
HEENT: Normocephalic, Anicteric and Moist Mucous Membranes
Cardiovascular: Regular Rhythm
Respiratory: Wheeze (n), Crackles ( few basilar), Rhonchi ( expiratory), Non-Labored Respirations, Accessory Resp Muscle Use (n) and Stridor (n)
GI: Soft, Non Distended and Non Tender
Neurology: Awake, Alert and No Motor Deficits
Skin: Warm, Good Color, Cyanosis (n), Jaundice (n) and Rash (n)
Labs/Micro/Reports
Lab Data
02/06/25 06:12
02/06/25 06:12
Microbiology
02/03/25 10:39 Blood/Venous Blood Culture - Preliminary
No Growth in 48 hours- Final report to follow
02/03/25 10:39 Blood/Venous Blood Culture - Preliminary
No Growth in 48 hours- Final report to follow
02/03/25 10:03 Urine Urine Culture - Final
NO GROWTH
02/03/25 09:02 Nasal Swab Influenza Types A & B (PATSY) - Final
Negative for Influenza A & B, NAAT
Negative results must be combined with clinical observations
and patient history.
Nucleic Acid Amplification test (NAAT)performed on the
[employer] platform.
[2025-02-06] MEDS: VIBRAMYCIN 100 MG PO ×2 (09:51→19:50)
[2025-02-06 10:58] VITALS: BP 118/85
[2025-02-06 11:49] LABS: Glucose - Point of Care 269 mg/dl (70-99)
[2025-02-06] MEDS: ProAmatine 5 MG PO (13:23)
--- NOTE | 2025-02-06 13:36 | W.PN.NEPH.HD ---
Assessment
-
Seen on HD. c/o pain. VSS, access ok
abx per primary team
Progress Note - Hemodialysis
-
Date of Service: February 06, 2025
Duration: 30 minutes and 3 hours
Potassium Bath: 3
Calcium Bath: 2.5
Opti-Dialyzer: 160
Ultrafiltration: Other (no)
Blood Flow: 400
Dialysate Flow: 600
Heparin: no
EPO: no
--- NOTE | 2025-02-06 14:16 | W.PN.HOSP.TC ---
Addendum entered and electronically signed by Dakota Desai MD 02/06/25 16:19:
I reassessed her this afternoon while she was on hemodialysis. She was calm cooperative and appropriate. She had no complaints. There was no evidence of agitation. She even yawned and went back to watching her TV show. She knew where she was
who she was here month and day. At this point in time after speaking with her son reading nursing notes that this is a vacation for her. I do think the change in her mental status is likely for secondary gain in order to for her to stay in the
hospital. Additionally, again declined psychiatry evaluation however over [place] text 'She was alert calmly having HD. No signs of anything acute'. Therefore, with knowing that will plan to dc back to [place]. CM updated and they are aware
Original Note:
Today's Communication/Plan
-
Assessment / Plan
Assessment / Plan
No acute distress
Scleral Anicteric
MMM
No JVD
CTABL
RRR, S1/S2
Soft, NT, ND, BS+
Warm, Dry
AAOx3
Agitated
Acute encephalopathy
-At this time unclear as to etiology though AAO x 3
-Not sure if there is a secondary gain. Per her son Jesus ' she likes the attention that she is receiving in the hospital'
-I wonder if there is a component of hospital-acquired delirium
-TSH 1.56. Will obtain B12 folate
-She is not allowing psychiatry to evaluate as she declines their services
Acute hypoxemic respiratory failure with hypercapnic respiratory failure in the setting of CAP
-Wean O2 as tolerated
-IV antibiotics x 5 days, at this time continue Rocephin and azithromycin
-BiPAP as needed at bedtime
-Pulmonary following
Hypotension
-I wonder if its UF related as BP refractory to IV fluid administration
-Continue midodrine prior to hemodialysis
Depression
-Continue antidepressives
-Unfortunately not allowing psychiatry to evaluate
Stage IV sacral ulcer, on arrival
-Continue wound care
BiV heart failure in the setting of HFrEF pulmonary hypertension
-Continue GDMT with BB, renal status precludes sglt2i, mra/arb etc
CAD s/p CABG
Continue Imdur, atorvastatin, beta-adrian, Eliquis
PAD s/p left first toe amputation
-Significant ischemic disease likely related to poorly controlled diabetes over time
-Home medications include high intensity statin; no antiplatelets but is on Eliquis for AF
-Also takes isosorbide and beta-adrian for CAD history
Paroxysmal atrial fibrillation
-Continue Eliquis beta-adrian
End-stage renal disease on HD M//
-HD per nephrology recommendations continue midodrine
IDDM C/B microvascular ischemia/retinopathy/neuropathy/nephropathy
-Continue long and short acting insulin along with sliding scale
-Accu-Cheks goal blood glucose 1 40-1 80 carb controlled diet
Lymphedema
-Seems asymmetric with LLE > RLE
-Will continue to monitor, order compression stocking
H/O Jonathan's procedure and ostomy
-Wound care/ostomy
-Monitor surrounding area for infection
S/p PPM
-Likely placed for sick sinus syndrome or AV block
-No signs of pacemaker dysfunction currently
Son Jesus updated via phone
Anticipated Discharge: 24 - 48 hours
Subjective/Interval History
-
Date of Service: February 06, 2025
Seen and examined. No new complaints. No acute overnight events.
Objective Data
-
Labs:
Laboratory Results
02/06/25
06:12
WBC 6.3
Hgb 9.9 L
Hct 30.3 L
Plt Count 136
Sodium 137
Potassium 4.4
Chloride 110 H
Carbon Dioxide 17 L
BUN 45 H
Creatinine 3.9 H
Glucose 75
Calcium 8.5
Vital Signs:
Vital Signs
Temp Pulse Resp BP Pulse Ox
98.1 F 119 16 118/85 96
02/06/25 10:58 02/06/25 10:58 02/06/25 10:58 02/06/25 10:58 02/06/25 10:58
I&O
02/05/25 02/06/25 02/07/25
06:59 06:59 06:59
Intake Total 960 / 960
Output Total 375 / 375
Balance 585 / 585
[2025-02-06] MEDS: STERILE WATER FOR INJECTION 10 ML IV (14:31)
[2025-02-06] MEDS: ROCEPHIN 1000 MG IV (14:31)
--- NOTE | 2025-02-06 14:48 | PTCARENOTE ---
Pt. uncooperative with all personal hygiene/care and refused PT again today. Pt. easily agitated lacking participation in ADL's. MD's report states that there may be an aspect of secondary gain- per pt's brother she 'likes the attention she is
receiving in the hospital'. The pt. has been engaging in attention seeking behaviors towards this RN- making comments such as 'you do it I am on vacation' in reference to cleaning her colostomy bag and other aspects of hygiene. Pt. repeatedly
stating that she 'just wants to ', emotional support provided by this RN, but pt. uninterested in explaining her feelings further. Pt. also refused to speak to psychiatry. Pt. appears to be resting comfortably in bed watching videos on her
personal I-pad and laughing. When this RN enters pt. room to assess her/during hourly rounds pt. becomes tearful and states she wants to be left alone. Will continue to offer support and assistance with care.
[2025-02-06 14:54] VITALS: BP 139/60
--- NOTE | 2025-02-06 15:22 | W.PN.UPDATE ---
Update Note
Progress Note Update
Approached pt again to offer psychiatric eval; asked to return to assess pt's mental status. Pt waved me away, refuses to see Psychiatry. Pt having hemodialysis, resting calmly with headphones on, sensorium appears intact.
Psychiatry will again sign off.
--- NOTE | 2025-02-06 16:33 | W.DCSUMMARY ---
Discharge Summary
Discharge Data
Date of Admission: 02/03/25
Date of Discharge: 02/06/25
-
Pending Results: No
Hospital Course
74-year-old female with ischemic cardiomyopathy with biventricular failure (LVEF 35%), pulmonary hypertension, CAD s/p CABG, PAD s/p left first toe amputation, AF on Eliquis, IDDM C/B retinopathy and nephropathy, ESRD on HD M/W/F, HTN, HLD, chronic
anemia, stage IV sacral decubitus ulcer, lymphedema, H/O Hodgkin's lymphoma (1988), S/P colostomy/Jonathan procedure, S/P PPM
Presented with concerns and change in mental status. This was unclear as to etiology potentially related to an infectious process versus hypercapnia. Therefore was started on IV antibiotics and BiPAP therapy. Hypercapnia resolved and mental
status improved back to baseline of alert awake oriented x 3. Antibiotics to be provided for total of 5 days to treat for pneumonia. However outside on the day of discharge spoke with her son who states that she would like to get attention if she
is receiving in the hospital. She states to the nurse that you can change my colostomy as this is a vacation for me. I do think this is for secondary gains
Was evaluated by nephrology for hemodialysis recommendations that was continued throughout hospitalization.
Was additionally evaluated by pulmonary as BiPAP was required. Outpatient pulmonary follow-up. Repeat chest x-ray in 6 weeks. Aspiration precautions.
Was evaluated by psychiatry however this was not completed as evaluation was declined. Psychiatry was consulted for encephalopathy.
More than 30 minutes spent in discharge including
Final examination of the patient
Summarizing hospital stay
Instructions for continuing care to all relevant caregivers
Preparation of discharge records, prescriptions, and referral forms
Total time spent (in minutes): 33mins
Discharge Plan
-
Patient Disposition: Longterm/SNF
Discharge Diagnosis/Procedures: Encephalopathy
Community-acquired pneumonia
Acute hypoxemic/hypercapnic respiratory failure
Condition: Good
Diet: As tolerated and Diabetic, Carb Controlled
Additional Diets: Renal diet
Activity: As tolerated
Activity Restrictions/Additional Instructions:
Presented with concerns and change in mental status. This was unclear as to etiology potentially related to an infectious process versus hypercapnia. Therefore was started on IV antibiotics and BiPAP therapy. Hypercapnia resolved and mental
status improved back to baseline of alert awake oriented x 3. Antibiotics to be provided for total of 5 days to treat for pneumonia.
Was evaluated by nephrology for hemodialysis recommendations that was continued throughout hospitalization.
Was additionally evaluated by pulmonary as BiPAP was required. Outpatient pulmonary follow-up. Repeat chest x-ray in 6 weeks. Aspiration precautions.
Was evaluated by psychiatry however this was not completed as evaluation was declined. Psychiatry was consulted for encephalopathy.
Cleared for return to [facility] with outpatient PCP follow-up. Complete antibiotics. Continue hemodialysis on Thursday schedule via right anterior chest wall primary catheter.
Wound Care Instructions
L ischial wound-clean with saline or Vashe wound cleanser, no sting barrier wipe around wound, loosely pack with Mesalt ribbon, cover with silicone border foam, change packing daily.
Sacral ulcer-clean with saline or Vashe wound cleanser, no sting barrier around wound, silicone border foam, daily and prn loosened dressing.
Static Air Overlay or Air mattress
Keep heels off-loaded with pillow or air cushion under calves
Follow up at wound care center call for an appointment.
Referrals:
Partha Guillen MD [Family Provider] -
Prescriptions:
New
ketotifen fumarate 0.025 % (0.035 %) Drops
1 drp BOTH EYES BID Qty: 5 0RF
midodrine 5 mg Tablet
5 mg PO Q8HPRN PRN (Reason: SBP < 90 mmHg/Before Hemodilysis) Qty: 30 0RF
simethicone 80 mg Tablet,Chewable
80 mg PO QIDPRN PRN (Reason: gas pain/bloat) Qty: 30 0RF
mirtazapine 7.5 mg Tablet
7.5 mg PO HS Qty: 30 0RF
doxycycline hyclate 100 mg Capsule
100 mg PO Q12 2 Days Qty: 4 0RF
cefdinir 300 mg capsule
300 mg PO BID 2 Days Qty: 4 0RF
Continued
atorvastatin [Lipitor] 40 mg Tablet
40 mg PO HS
buspirone 5 mg Tablet
5 mg PO BID
cyanocobalamin (vitamin B-12) 1,000 mcg tablet
1,000 mcg PO DAILY
omeprazole 40 mg capsule,delayed release(DR/EC)
40 mg PO DAILY
ferrous sulfate 325 mg (65 mg iron) tablet
325 mg PO NOON
Eliquis 5 mg tablet
5 mg PO BID
Chloraseptic Sore Throat 6-10 mg Lozenge
1 reagan PO Q4HPRN PRN (Reason: sore throat) Qty: 30 0RF
insulin aspart U-100 [Novolog FlexPen U-100 Insulin] 100 unit/mL (3 mL) Insulin Pen
6 unit SC AC Qty: 0 0RF
insulin glargine [Lantus Solostar U-100 Insulin] 100 unit/mL (3 mL) Insulin Pen
14 unit SC HS Qty: 0 0RF
bisacodyl 10 mg Suppository
10 mg [place] DAILYPRN PRN (Reason: NO RESULTS FROM [facility])
mirtazapine 15 mg Tablet
15 mg PO HS
oxycodone 5 mg Tablet
2.5 mg PO DAILYPRN PRN (Reason: SEVER PAIN)
dextromethorphan HBr
1 tsp PO Q6HPRN PRN (Reason: COUGH,CONGESTION)
guaifenesin
10 ml PO Q6HPRN PRN (Reason: COUGH)
acetaminophen 325 mg tablet
650 mg PO Q6HPRN PRN (Reason: mild pain)
isosorbide mononitrate 30 mg tablet extended release 24 hr
30 mg PO DAILY Qty: 0 0RF
Rx Instructions:
hold for sbp <110
metoprolol succinate 25 mg Tablet Extended Release 24 Hr
25 mg PO DAILY Qty: 30 0RF
Rx Instructions:
hold for sbp <100
Discharge Orders:
Discharge Patient (As Directed); Ordered 02/06/25
Ordered By: Dakota Desai
Discharge Date and Time
Print Language: ETHIOPIAN
[2025-02-06 16:38] LABS: Glucose - Point of Care 92 mg/dl (70-99)
[2025-02-06 21:46] LABS: Glucose - Point of Care 197 mg/dl (70-99)
[2025-02-06] MEDS: LANTUS 0.14 UNITS SC (21:53)
[2025-02-06] MEDS: LIPITOR 40 MG PO (21:54)
[2025-02-06] MEDS: REMERON 7.5 MG PO (21:54)
[2025-02-06 23:00] VITALS: BP 134/49
[2025-02-07 05:43] VITALS: BMI 25.2
[2025-02-07 07:40] VITALS: BP 118/58
[2025-02-07 07:52] LABS: Glucose - Point of Care 107 mg/dl (70-99)
[2025-02-07] MEDS: NOVOLOG FLEXPEN-MODERATE RESISTANCE SC ×2 (08:44→11:53)
[2025-02-07] MEDS: PROTONIX 40 MG PO (08:58)
[2025-02-07] MEDS: FEOSOL 325 MG PO (08:58)
[2025-02-07] MEDS: VIBRAMYCIN 100 MG PO (08:58)
[2025-02-07] MEDS: TOPROL XL 25 MG PO (08:58)
[2025-02-07] MEDS: ELIQUIS 5 MG PO (08:58)
[2025-02-07] MEDS: ZADITOR BOTH EYES (08:59)
[2025-02-07] MEDS: VITAMIN B-12 1000 MCG PO (08:59)
[2025-02-07] MEDS: BUSPAR 5 MG PO (08:59)
[2025-02-07] MEDS: ANESTHETIC LOZENGE 1 LOZENGE PO ×2 (09:06→18:06)
[2025-02-07] MEDS: TYLENOL 650 MG PO (09:06)
[2025-02-07] MEDS: NOVOLOG FLEXPEN 6 UNITS SC ×2 (09:31→14:05)
--- NOTE | 2025-02-07 10:03 | W.PN.PUL.V3 ---
Today's Communication / Plan
-
.
Wean oxygen.
BiPAP if tolerated-refusing.
Intensified mucolytic some mucus clearing devices.
Hemodialysis per nephrology.
Pulmonary will sign off -. Please call with questions
Assessment
-
74-year-old female with known history of end-stage renal disease on dialysis, biventricular heart failure, paroxysmal A-fib, depression, sacral decub's was admitted to the hospital with altered mental status. CT head was unremarkable and it was
felt that her encephalopathy is related to metabolic etiologies. Her admission VBG showed mild hypercapnia. Pulmonary consultation was requested this morning to evaluate for need for BiPAP and if bedside spirometry is indicated to evaluate for
obstructive airway disease 02/05/25.
Toxic metabolic encephalopathy.
Multifocal community-acquired pneumonia.
Aspiration risk
Other medical issues:
-Coronary artery disease status postcoronary bypass graft
-Paroxysmal atrial fibrillation
-End-stage renal disease on HD, Thursday, currently volume overloaded
-Diabetes mellitus with retinopathy, neuropathy and nephropathy
-History of Mireles's procedure and ostomy
-Status post permanent pacemaker placement
-Heart failure with reduced ejection fraction, EF 30 to 35%
-History of depression
-Stage IV sacral ulcer
Plan
Respiratory status relatively stable-major complaint difficulties mobilizing secretions
Continue supplemental oxygen.
Aspiration precautions.
Nebulizers as needed.
Intensified mucolytic's.
Mucus clearing devices-add incentive spirometry and flutter
BiPAP if tolerated-refusing..
Follow occasional chest x-ray
Monitor renal function.
Nephrology following-Correspondence reviewed
Hemodialysis per nephrology-scheduled for tomorrow
Significant depression and possible suicidal ideations.
Psychiatry asked to see--patient declined..
.
Cultures unrevealing
Empiric antibiotics-on ceftriaxone and doxycycline
DVT prophylaxis-on Eliquis
GI prophylaxis-on pantoprazole
Nutrition
Early mobilization..
Respiratory status stable for proposed discharge-pulmonary will sign off
Dr. Lazaro reviewed with nursing
CT Chest 01/2025:
Within the posterior and inferior aspect of the left lower lobe of the lung, patchy areas of parenchymal opacity, increased from prior CT examination, with morphologic appearance suspicious for pneumonia, although atelectasis could have a similar
appearance. There also appears to be some bronchial wall thickening, suggesting bronchitis.
Mild patchy parenchymal disease within the inferior lingula, with main differential considerations of pneumonia and/or atelectasis.
Parenchymal opacity within the posterior and inferior right lower lobe has more linear configuration, suggestive of discoid atelectasis. There is also mild bronchial wall thickening in the right lower lobe, suggesting bronchitis.
No significant pleural effusions bilaterally. No significant pericardial effusion. Dense calcification of the mitral annulus.
Subjective Data
-
Date of Service:
Date of Service: February 07, 2025
Chief Complaint: Pulmonary Follow Up and Dyspnea Follow Up
Subjective:
Denies any worsening shortness of breath, has difficulties mobilizing secretions, no chest pain or abdominal pain
Review of Systems
General: Other ( per HPI)
Objective Data
Data Reviewed
Vital Signs / I&O:
Vital Signs
Temp Pulse Resp BP Pulse Ox
98.4 F 61 17 118/58 98
02/07/25 07:40 02/07/25 08:58 02/07/25 07:40 02/07/25 08:58 02/07/25 07:40
Intake and Output
02/06/25 02/07/25 02/08/25
06:59 06:59 06:59
Intake Total 960 / 960 720 / 720
Output Total 375 / 375
Balance 585 / 585 720 / 720
SaO2: 98
Nasal Cannula flow liters per minute: 2
Physical Exam
General: Respiratory Distress (n) and Comfortable
HEENT: Normocephalic, Anicteric and Moist Mucous Membranes
Cardiovascular: Regular Rhythm
Respiratory: Wheeze (n), Crackles ( few basilar), Rhonchi ( expiratory), Non-Labored Respirations, Accessory Resp Muscle Use (n) and Stridor (n)
GI: Soft, Non Distended and Non Tender
Neurology: Awake, Alert and No Motor Deficits
Skin: Warm, Good Color, Cyanosis (n), Jaundice (n) and Rash (n)
Labs/Micro/Reports
Lab Data
02/06/25 06:12
02/06/25 06:12
Microbiology
02/03/25 10:39 Blood/Venous Blood Culture - Preliminary
No Growth in 72 hours- Final report to follow
02/03/25 10:39 Blood/Venous Blood Culture - Preliminary
No Growth in 72 hours- Final report to follow
02/03/25 10:03 Urine Urine Culture - Final
NO GROWTH
[2025-02-07 11:11] LABS: Glucose - Point of Care 77 mg/dl (70-99)
--- NOTE | 2025-02-07 11:11 | PN.CDI ---
CDI
- -
CDI:
Physician Documentation Request
Admit Date: 02/03/25 14:22
Dear Doctor Lloyd,
Please review the following and provide your response in the progress notes.
Clinical Indicators:
- 02/06 Wound Note indicates:
- Stage 1 right heel pressure injury, POA
Physician documentation of the type and location of wounds is required for compliant documentation. Based on the above clinical findings and your assessment, please provide the following in your progress note:
1. Location of the ulcer/wound, including laterality.
2. Type (etiology) of ulcer/wound:
- Diabetic ulcer
- Arterial (ischemic) ulcer
- Traumatic wound
- Venous stasis ulcer
- Pressure (decubitus) ulcer
- Other
Use of terms such as suspected, likely, concern for, or probable (associated with a specific diagnosis that is being evaluated, monitored, or treated as if it exists) are acceptable and can be coded in the inpatient setting, when documented at the
time of discharge.
Thank you,
Margarito Cruz RN
CDI Specialist
Please use your independent medical judgment in providing your response.
*Source: National Pressure Ulcer Advisory Panel (NPUAP)
--- NOTE | 2025-02-07 11:12 | W.DCSUMMARY ---
Addendum entered and electronically signed by Dakota Desai MD 02/07/25 21:59:
Stage 1 right heel pressure injury, POA
Acute hypercapnic respiratory failure
Original Note:
Discharge Summary
Discharge Data
Date of Admission: 02/03/25
Date of Discharge: 02/07/25
-
Pending Results: No
Hospital Course
74-year-old female with ischemic cardiomyopathy with biventricular failure (LVEF 35%), pulmonary hypertension, CAD s/p CABG, PAD s/p left first toe amputation, AF on Eliquis, IDDM C/B retinopathy and nephropathy, ESRD on HD M/W/F, HTN, HLD, chronic
anemia, stage IV sacral decubitus ulcer, lymphedema, H/O Hodgkin's lymphoma (1988), S/P colostomy/Jonathan procedure, S/P PPM
Presented with concerns and change in mental status. This was unclear as to etiology potentially related to an infectious process versus hypercapnia. Therefore was started on IV antibiotics and BiPAP therapy. Hypercapnia resolved and mental
status improved back to baseline of alert awake oriented x 3. Antibiotics to be provided for total of 5 days to treat for pneumonia. However outside on the day of discharge spoke with her son who states that she would like to get attention if she
is receiving in the hospital. She states to the nurse that you can change my colostomy as this is a vacation for me. I do think this is for secondary gains
Was evaluated by nephrology for hemodialysis recommendations that was continued throughout hospitalization.
Was additionally evaluated by pulmonary as BiPAP was required. Outpatient pulmonary follow-up. Repeat chest x-ray in 6 weeks. Aspiration precautions.
Was evaluated by psychiatry however this was not completed as evaluation was declined. Psychiatry was consulted for encephalopathy.
Seen and examined. No new complaints. No acute overnight events.
Tells me that she does not pee at all. Stool via colostomy
No acute distress
Scleral Anicteric
MMM
No JVD
CTABL
RRR, S1/S2
Soft, NT, ND, BS+
Colostomy bag cdi
Warm, Dry
AAOx3
More than 30 minutes spent in discharge including
Final examination of the patient
Summarizing hospital stay
Instructions for continuing care to all relevant caregivers
Preparation of discharge records, prescriptions, and referral forms
Total time spent (in minutes): 33mins
Discharge Plan
-
Patient Disposition: Correction/SNF
Discharge Diagnosis/Procedures: Encephalopathy
Community-acquired pneumonia
Acute hypoxemic/hypercapnic respiratory failure
Condition: Good
Diet: As tolerated and Diabetic, Carb Controlled
Additional Diets: Renal diet
Activity: As tolerated
Activity Restrictions/Additional Instructions:
Presented with concerns and change in mental status. This was unclear as to etiology potentially related to an infectious process versus hypercapnia. Therefore was started on IV antibiotics and BiPAP therapy. Hypercapnia resolved and mental
status improved back to baseline of alert awake oriented x 3. Antibiotics to be provided for total of 5 days to treat for pneumonia.
Was evaluated by nephrology for hemodialysis recommendations that was continued throughout hospitalization.
Was additionally evaluated by pulmonary as BiPAP was required. Outpatient pulmonary follow-up. Repeat chest x-ray in 6 weeks. Aspiration precautions.
Was evaluated by psychiatry however this was not completed as evaluation was declined. Psychiatry was consulted for encephalopathy.
Cleared for return to [facility] with outpatient PCP follow-up. Complete antibiotics. Continue hemodialysis on Thursday schedule via right anterior chest wall primary catheter.
Wound Care Instructions
L ischial wound-clean with saline or Vashe wound cleanser, no sting barrier wipe around wound, loosely pack with Mesalt ribbon, cover with silicone border foam, change packing daily.
Sacral ulcer-clean with saline or Vashe wound cleanser, no sting barrier around wound, silicone border foam, daily and prn loosened dressing.
Static Air Overlay or Air mattress
Keep heels off-loaded with pillow or air cushion under calves
Follow up at wound care center call for an appointment.
Referrals:
Partha Guillen MD [Family Provider] -
Prescriptions:
New
ketotifen fumarate 0.025 % (0.035 %) Drops
1 drp BOTH EYES BID Qty: 5 0RF
midodrine 5 mg Tablet
5 mg PO Q8HPRN PRN (Reason: SBP < 90 mmHg/Before Hemodilysis) Qty: 30 0RF
simethicone 80 mg Tablet,Chewable
80 mg PO QIDPRN PRN (Reason: gas pain/bloat) Qty: 30 0RF
mirtazapine 7.5 mg Tablet
7.5 mg PO HS Qty: 30 0RF
doxycycline hyclate 100 mg Capsule
100 mg PO Q12 2 Days Qty: 4 0RF
cefdinir 300 mg capsule
300 mg PO BID 2 Days Qty: 4 0RF
Continued
atorvastatin [Lipitor] 40 mg Tablet
40 mg PO HS
buspirone 5 mg Tablet
5 mg PO BID
cyanocobalamin (vitamin B-12) 1,000 mcg tablet
1,000 mcg PO DAILY
omeprazole 40 mg capsule,delayed release(DR/EC)
40 mg PO DAILY
ferrous sulfate 325 mg (65 mg iron) tablet
325 mg PO NOON
Eliquis 5 mg tablet
5 mg PO BID
Chloraseptic Sore Throat 6-10 mg Lozenge
1 reagan PO Q4HPRN PRN (Reason: sore throat) Qty: 30 0RF
insulin aspart U-100 [Novolog FlexPen U-100 Insulin] 100 unit/mL (3 mL) Insulin Pen
6 unit SC AC Qty: 0 0RF
insulin glargine [Lantus Solostar U-100 Insulin] 100 unit/mL (3 mL) Insulin Pen
14 unit SC HS Qty: 0 0RF
bisacodyl 10 mg Suppository
10 mg [place] DAILYPRN PRN (Reason: no [place] [facility]
mirtazapine 15 mg Tablet
15 mg PO HS
oxycodone 5 mg Tablet
2.5 mg PO DAILYPRN PRN (Reason: severe pain )
dextromethorphan HBr
1 tsp PO Q6HPRN PRN (Reason: cough, congestion )
guaifenesin
10 ml PO Q6HPRN PRN (Reason: cough)
acetaminophen 325 mg tablet
650 mg PO Q6HPRN PRN (Reason: mild pain)
isosorbide mononitrate 30 mg tablet extended release 24 hr
30 mg PO DAILY Qty: 0 0RF
Rx Instructions:
hold for sbp <110
metoprolol succinate 25 mg Tablet Extended Release 24 Hr
25 mg PO DAILY Qty: 30 0RF
Rx Instructions:
hold for sbp <100
Discharge Orders:
Discharge Patient (As Directed); Ordered 02/06/25
Ordered By: Dakota Desai
Discharge Date and Time
Print Language: GERMAN
--- NOTE | 2025-02-07 11:20 | PN.CDI ---
CDI
- -
CDI:
Physician Documentation Request
Admit Date: 02/03/25 14:22
Dear Doctor Lloyd,
Please review the following and provide your response in the progress notes.
Clinical Indicators:
Documentation in the record on _02/06 PN_ includes the diagnosis of acute hypoxic respiratory failure.
- 02/05 PN 'Acute hypoxemic and hypercapnic respiratory insufficiency'
- 02/06 PN 'Acute hypoxemic respiratory failure with hypercapnic respiratory failure in the setting of CAP'
- Documented VS 2-3L O2, SpO2 > 94%
- ER Physician documented 'RESPIRATORY: no respiratory distress'
Laboratory Tests
02/04/25
16:36
VBG pH 7.24 L
VBG pCO2 60 H
Please clarify in the Progress Notes:
Acute hypoxic respiratory failure is/was present and is a clinical diagnosis based on (please include this additional support in the medical record)
After study acute hypoxic respiratory failure has been ruled out, acute hypercapnic respiratory failure only
Other (please specify)
Recognized standard criteria for respiratory failure includes:
(Source: [facility] Hospital[facility] Sep 2013)
ABGs (1 or more)
�PO2 <60 or RA SpO2 <91%
�PcO2 >50 and pH <7.35
�pO2 decrease or pcO2 increase by 10 mmHg from baseline if known Symptoms:
�Tachypnea, SOB, dyspnea
�Pallor or cyanosis
�Anxiety or restlessness
�Use of accessory muscles
�Retractions (grunting in newborns)
�Unable to speak in complete sentences
Supplemental O2 requirement of 40% (5LPM) or more Intubation is not required
Use of terms such as suspected, likely, concern for, or probable (associated with a specific diagnosis that is being evaluated, monitored, or treated as if it exists) are acceptable and can be coded in the inpatient setting, when documented at the
time of discharge.
Thank you,
Margarito Cruz RN
CDI Specialist
Please use your independent medical judgment in providing your response.
--- NOTE | 2025-02-07 11:29 | W.PN.NEPH.PH ---
Today's Communication / Plan
-
dc
Assessment/Plan
-
Assessment:
Acute metabolic encephalopathy
Acute hypoxemic respiratory insufficient
Possible community-acquired pneumonia
ESRD-HD MWF through [facility], started 10/2024
Metabolic acidosis
Anemia of CKD
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
Heart failure reduced ejection fraction EF 30-35%
pulm HTN
CAD s/p CABG
PAD s/p left first toe amputation
Paroxysmal atrial fibrillation
Ileostomy
Stage IV sacral decubitus ulcer, WHAT JOB TITLES MEAN
Lymphedema
Plan:
abx po
HD tomorrow at [facility]
dc planning
-
-
Date of Service: February 07, 2025
CC / HPI / ROS
-
Chief Complaint:
ESRD
History of Present Illness:
BP stable
k normal
tolerated HD yesterday
Abx for PNA
Review of Systems:
no cp or sob
Labs
-
Labs:
WBC 6.3 10^3/uL (4.8-10.8) 02/06/25 06:12
RBC 3.24 10^6/uL (4.20-5.40) L 02/06/25 06:12
Hgb 9.9 g/dL (12.0-16.0) L 02/06/25 06:12
Hct 30.3 % (37.0-47.0) L 02/06/25 06:12
Plt Count 136 10^3/uL (130-400) 02/06/25 06:12
Sodium 137 mmol/L (135-145) 02/06/25 06:12
Potassium 4.4 mmol/L (3.5-5.1) 02/06/25 06:12
Chloride 110 mmol/L (98-107) H 02/06/25 06:12
Carbon Dioxide 17 mmol/L (22-30) L 02/06/25 06:12
BUN 45 mg/dl (7-17) H 02/06/25 06:12
Creatinine 3.9 mg/dL (0.6-1.0) H 02/06/25 06:12
eGFR 11.69 02/06/25 06:12
Glucose 75 mg/dl (70-99) 02/06/25 06:12
Calcium 8.5 mg/dl (8.4-10.2) 02/06/25 06:12
Wut-K-Zzbfogkrnvr Pept > 12457 pg/ml 02/03/25 09:02
Albumin Cancelled 02/03/25 09:02
Physical Exam
-
Vital Signs:
Vital Signs
Temp Pulse Resp BP Pulse Ox
98.4 F 61 17 118/58 98
02/07/25 07:40 02/07/25 08:58 02/07/25 07:40 02/07/25 08:58 02/07/25 10:03
Cardiovascular:: Regular rate and rhythm
Respiratory:: Bilateral: Coarse
Lung Excursion:: Normal
Abdomen:: Nontender and Soft
Bowel Sounds:: Normal
Extremity Edema:: None: Bilateral:
[2025-02-07] MEDS: NOVOLOG FLEXPEN SC (11:53)
[2025-02-07 12:02] LABS: Folate 11.2 ng/ml (2.76-20); Vitamin B12 > 1000 pg/ml (239-931)
[2025-02-07] MEDS: ROCEPHIN IV ×2 (13:35→14:11)
[2025-02-07] MEDS: STERILE WATER FOR INJECTION IV ×2 (13:35→14:11)
[2025-02-07] MEDS: FLUSH (NSS) 2 FLUSH IV (13:36)
--- NOTE | 2025-02-07 13:52 | CM ---
Placed a call to patient's son who stated that he would like for patient to return to [facility] when stable. He stated that she was doing well there and is working on getting back to baseline so that she can go home.
Placed a call to Desi in admissions at [facility] who stated that patient can come back today. Patient medically cleared.
Placed a call to patient's son to review IMM and update about transfer back to [facility]. There was no answer and no voice mail. Called multiple times. Will attempt again.
Will set patient up for discharge back.
#For report [phone] # [phone]
Plan: Case management will continue to follow and assist with discharge planning. Back to [facility].
[2025-02-07 14:01] LABS: Glucose - Point of Care 221 mg/dl (70-99)
[2025-02-07] MEDS: NOVOLOG FLEXPEN-MODERATE RESISTANCE 3 UNITS SC (14:05)
[2025-02-07 15:13] VITALS: BP 107/58
[2025-02-07 16:21] LABS: Glucose - Point of Care 157 mg/dl (70-99)
[2025-02-07] MEDS: NOVOLOG FLEXPEN-MODERATE RESISTANCE 1 UNITS SC (18:01)
[2025-02-07] MEDS: NOVOLOG FLEXPEN 3 UNITS SC (18:02)
== END 2025-02-07 18:26 | DRG 70 ==
LOC: 3 WEST ACU 14:22
PROVIDERS: Specialist; ADMITTING PHYSICIAN Internal Medicine; ATTENDING PHYSICIAN Hospitalist; CONSULT PHYSICIAN Internal Medicine; EMERGENCY PHYSICIAN Student in an Organized Health Care Education/Training Program; FAMILY PHYSICIAN Family Medicine
PROC: 5A1D70Z Performance of Urinary Filtration, Intermittent, Less than 6 Hours Per Day (ICD-10-PCS; 2025-02-03)
DX: G93.41 Metabolic encephalopathy (principal); J18.9 Pneumonia, unspecified organism; L89.154 Pressure ulcer of sacral region, stage 4; J96.01 Acute respiratory failure with hypoxia; J96.02 Acute respiratory failure with hypercapnia; N18.6 End stage renal disease; I13.2 Hypertensive heart and chronic kidney disease with heart failure and with stage 5 chronic kidney disease, or end stage renal disease; E87.20 Acidosis, unspecified; I50.22 Chronic systolic (congestive) heart failure; E11.22 Type 2 diabetes mellitus with diabetic chronic kidney disease; E11.65 Type 2 diabetes mellitus with hyperglycemia; I27.20 Pulmonary hypertension, unspecified; I25.5 Ischemic cardiomyopathy; Z85.71 Personal history of Hodgkin lymphoma; Z95.0 Presence of cardiac pacemaker; I25.10 Atherosclerotic heart disease of native coronary artery without angina pectoris; Z95.1 Presence of aortocoronary bypass graft; E78.00 Pure hypercholesterolemia, unspecified; I50.82 Biventricular heart failure; E11.40 Type 2 diabetes mellitus with diabetic neuropathy, unspecified; E11.319 Type 2 diabetes mellitus with unspecified diabetic retinopathy without macular edema; D63.1 Anemia in chronic kidney disease; I89.0 Lymphedema, not elsewhere classified; Z93.3 Colostomy status; Z87.891 Personal history of nicotine dependence; Z91.041 Radiographic dye allergy status; Z88.2 Allergy status to sulfonamides; Z88.1 Allergy status to other antibiotic agents; F41.9 Anxiety disorder, unspecified; F32.A Depression, unspecified; Z79.01 Long term (current) use of anticoagulants; Z79.4 Long term (current) use of insulin; Z88.8 Allergy status to other drugs, medicaments and biological substances; E11.610 Type 2 diabetes mellitus with diabetic neuropathic arthropathy; I48.0 Paroxysmal atrial fibrillation; N25.0 Renal osteodystrophy; I49.5 Sick sinus syndrome; I44.30 Unspecified atrioventricular block; E66.9 Obesity, unspecified; Z68.25 Body mass index [BMI] 25.0-25.9, adult; L89.611 Pressure ulcer of right heel, stage 1; Z66 Do not resuscitate; Z79.899 Other long term (current) drug therapy; Z85.72 Personal history of non-Hodgkin lymphomas; Z98.1 Arthrodesis status; Z99.2 Dependence on renal dialysis; Z11.52 Encounter for screening for COVID-19
CPT/HCPCS: 70450; 71045; 71046; 74176; 80048; 81003; 81015; 82607; 82746; 82805; 82962; 83735; 83880; 84132; 84443; 85025; 86706; 87040; 87086; 87502; 87811; 92526; 92610; 93005; 94640; 94660; 96374; 96375; 97162; 99285; G0257; P9047

== ENCOUNTER 2025-05-08 07:57 | Emergency (ER) | payer MEDICARE, SELFPAY ==
[2025-05-08] VITALS (20 sets, daily range): BP systolic 90–134; BP diastolic 41–108
--- NOTE | 2025-05-08 08:06 | ED.GENMED ---
History of Present Illness
General
Chief Complaint: Social Service Referral
Time Seen by Provider: 05/08/25 08:06
History of Present Illness
History of Present Illness:
TIME OF INITIAL ENCOUNTER: 8:06 AM
HPI:
The patient is a 75-year-old female with a history of diabetes and kidney issues requiring dialysis. She initially presented to the hospital in October with abnormal kidney function tests, leading to the decision for dialysis initiation. A
catheter was placed in late October. The patient was transferred to a rehabilitation facility, [facility], for expected short-term care and transition to home while receiving dialysis. However, complications ensued during her stay, including a
significant decline in her kidney function requiring continued dialysis and an ischial wound. The patient was discharged home without proper dialysis follow-up arrangements. An appointment scheduled for 5:45 AM this morning at the [facility] in
[place] was not recognized by the staff there, leading to a failure in receiving dialysis today. The patient complains of ongoing sacral pain and some chronic abdominal discomfort.
EXAM:
GENERAL: The patient appears generally weak and debilitated, she appears uncomfortable
HEENT: Moist oral mucosa
CARDIOVASCULAR: No murmurs, normal heart rate, regular rhythm, No chest wall tenderness
PULMONARY: No respiratory distress, breath sounds are clear and equal
ABDOMEN: Soft with no peritoneal signs, no tenderness
NEUROLOGIC: Fair strength all extremities, no coordination deficits
PSYCHIATRIC: The patient appears upset, she has reasonable insight and judgment
EXTREMITIES: Nontender, no edema, moves all extremities equally
SKIN: There is a 4 cm decubitus wound to the left side of the sacral region
NUMBER AND COMPLEXITY OF PROBLEMS ADDRESSED AT THE ENCOUNTER
� Chronic conditions affecting care: CKD on HD, history of Hodgkin's lymphoma, high blood pressure, atrial fibrillation, cardiomyopathy, CAD status post triple bypass, paroxysmal A-fib
� Acute Exacerbation and/or Progression of Chronic Illness: This is an acute on chronic problem
� Differential Diagnosis includes:
The Differential Diagnosis includes, in no particular order and is not limited to:
1. Chronic kidney disease exacerbation
2. Dialysis complications
3. Ischial wound with potential for infection
4. Abdominal discomfort secondary to metabolic derangements
5. Diabetic complications affecting wound healing
6. Cardiovascular issues contributing to abdominal pain
7. Musculoskeletal pain from immobility
8. Skin breakdown from pressure or friction
9. Complications from diabetes affecting other organ systems
10. Healthcare system coordination failures impacting treatment continuity
AMOUNT AND/OR COMPLEXITY OF DATA TO BE REVIEWED AND ANALYZED
� I performed an independent evaluation of and my interpretation is:
EKG: Suspect underlying atrial flutter/fib, V paced 61
CT:
X-rays:
Laboratory Studies: White count normal, hemoglobin 10.7, bicarb 13, creatinine 4.8, potassium 4.3
Other:
� Review of other/old records: I reviewed records. The patient was admitted here for 1 month from this past October through November. She was treated for severe decubitus ulcers at the ischium and was treated for decompensated
heart failure with ANDI. She was also pancytopenic at that time. She was felt to have cardiorenal syndrome.
� Clinical information was obtained by an independent historian: I spoke to son at bedside
� Prescriptions/Medications Considered but not given:
� Further testing considered but not performed:
RISK OF COMPLICATIONS AND/OR MORBIDITY OR MORTALITY OF PATIENT MANAGEMENT
� Social determinants of health affecting care: Lives at home, son drove her here
� Discussion with other providers: Notified Dr. Centeno of patient's presentation upon arrival.
� Escalation of care including admission/observation vs risk of discharge considered: The patient was unable to obtain dialysis as an outpatient.
ANY OTHER UPDATES:
I had multiple discussions with social work. I notified Dr. Hauser regarding admission as social work initially did not feel that they could successfully manage her as an outpatient. Ultimately, although [facility] accepted to do her today
at 1:00, there is no transportation to take her there by them as she does require a Cleopatra lift to get into their bed at the facility. I spoke to Dr. Centeno again and ultimately he will dialyze in the ED and then patient will be driven home by her
son and social work continues to plan [facility] for Thursday.
Past History
Past History
ED Past Medical History: Arrthythmia, CAD, Cancer (Hodgkin's lymphoma 1988), CHF, HTN, Hypercholesterolemia, IDDM and AR
ED Past Surgical History: Cardiac (Bypass surgery) and Orthopedic (Left great toe amputation)
Social History
Tobacco: Non-smoker
Alcohol: None
Drug: None
Personal: Single
Living: with family
Employment: Not employed
Family History
Family History: Unable to obtain
Phy Exam
Physical Exam
Physical Exam:
See HPI
Course
Orders/Labs/Results
Orders:
Orders
05/08/25 08:18
Electrocardiogram (*1) Urgent
Reason for Study: Other
Other Reason for Exam: ckd
EKG- Treatment ONCE
05/08/25 08:33
Case Management Consult ONCE
Case Management Consult: Other
Comment: arrange HD
05/08/25 08:40
Basic Metabolic Panel Urgent
05/08/25 09:00
Heparin See Dose Instructions INTRACATH HD-ONCE ONE
Mannitol 25% 12.5 grams IV HD-Q1HPRN PRN
Midodrine [ProAmatine] 5 mg PO HD-ONCE ONE
Sodium Chloride [Sodium Chloride 4 Meq/ml For Hemodialysis] 10 ml IV HD-Q1HPRN PRN
05/08/25 09:01
Hemodialysis treatment As Directed
Treatment date:: 05/08/25
Treatment type: Hemodialysis
Ultrafiltration (kg): 1-1.5
Treatment time (duration): 3 hours 30 minutes
Use dialysis access:: Tunneled Cath
Dialyzer:: Optiflux 160
Blood flow rate minimum: 350
Blood flow rate maximum: 400
Dialysis flow rate: 600 mL/min
Dialysate temperature: 37 degrees Celsius
Sodium (Na): 137
Potassium (K): 3
Calcium (Ca): 2.5
Bicarbonate (HCO3): 37
05/08/25 09:27
Complete Blood Count/With Diff Urgent
Potassium Urgent
Abnormal Lab Results
05/08/25 05/08/25
08:40 09:27
RBC 3.32 L 10^6/uL
(4.20-5.40)
Hgb 10.7 L g/dL
(12.0-16.0)
Hct 32.2 L %
(37.0-47.0)
MCH 32.2 H pg
(27.0-31.0)
Plt Count 112 L 10^3/uL
(130-400)
Absolute Lymphs (auto) 0.5 L 10^3/uL
(1.2-3.4)
Immature Gran % 0.6 H %
(0-0.5)
Neutrophils % 83.9 H %
(42.2-75.2)
Lymphocytes % 7.2 L %
(20.5-51.1)
Chloride 110 H mmol/L
(98-107)
Carbon Dioxide 13 L* mmol/L
(22-30)
BUN 82 H mg/dl
(7-17)
Creatinine 4.8 H* mg/dL
(0.6-1.0)
Glucose 227 H mg/dl
(70-99)
05/08/25 09:27
05/08/25 09:27
Vital Signs
Initial and Last Documented VS:
Initial Vital Signs
Temp Pulse Resp BP Pulse Ox
36.7 C 75 16 111/53 98
05/08/25 08:00 05/08/25 08:00 05/08/25 08:00 05/08/25 08:00 05/08/25 08:00
Last Documented Vital Signs
Temp Pulse Resp BP Pulse Ox
36.7 C 75 16 121/46 97
05/08/25 08:00 05/08/25 08:00 05/08/25 10:00 05/08/25 12:00 05/08/25 12:00
*Critical Care Note
Total Time (30-74mins, 75-104mins- exclusive of procedures): Not Applicable
ED Attending Note
-
Portions of this chart may have been created with voice recognition software.� Occasional wrong word or��sound alike� substitutions may have occurred due to the inherent limitations of voice recognition software.
Discharge Plan
Departure
Patient Disposition: Home (Routine Discharge)
Date of Disposition: 05/08/25
Time of Disposition: 10:47
Patient with high blood pressure during this ER visit?: No
Discharge Problem:
Chronic kidney disease
Prescriptions:
No Action
atorvastatin [Lipitor] 40 mg Tablet
40 mg PO HS
buspirone 5 mg Tablet
5 mg PO BID
omeprazole 40 mg capsule,delayed release(DR/EC)
40 mg PO DAILY
Eliquis 5 mg tablet
5 mg PO BID
mirtazapine 15 mg Tablet
30 mg PO HS
ketotifen fumarate 0.025 % (0.035 %) Drops
1 drp BOTH EYES BID Qty: 5 0RF
isosorbide mononitrate 30 mg tablet extended release 24 hr
30 mg PO DAILY Qty: 0 0RF
Rx Instructions:
hold for sbp <110
metoprolol succinate 25 mg Tablet Extended Release 24 Hr
25 mg PO DAILY Qty: 30 0RF
Rx Instructions:
hold for sbp <100
acetaminophen [Tylenol Extra Strength] 500 mg Tablet
500 mg PO Q6HPRN PRN (Reason: mild pain)
insulin glargine [Basaglar KwikPen U-100 Insulin] 100 unit/mL (3 mL) Insulin Pen
14 unit SC HS
sevelamer carbonate 800 mg Tablet
800 mg PO AC
oxycodone 5 mg tablet
5 mg PO DAILYPRN PRN (Reason: prior to HD for discomfort from chair)
insulin aspart U-100 [Novolog FlexPen U-100 Insulin] 100 unit/mL (3 mL) insulin pen
2 unit SC AC
Referrals:
Josh Centeno V., DO [Active, Nephrology]
UNKNOWN - PT DOES,NOT KNOW [Family Provider]
Activity Restrictions/Additional Instructions:
Social work will call you regarding the plan for dialysis on Thursday likely at [facility].
Interventions
Interventions:
*Risk Screen - Suicide Last Done: 05/08/25 08:00
*General Assessment Last Done: 05/08/25 12:13
*Neglect/Abuse Screening Last Done: 05/08/25 08:00
*ED- Fall Risk Assessment Last Done: 05/08/25 09:24
*ED COVID-19 Vaccine History Last Done: 05/08/25 09:24
ED-Psychological Assessment Last Done: 05/08/25 08:56
Discharge Date and Time
Print Language: MICRONESIAN
--- NOTE | 2025-05-08 08:39 | W.CON.NEPH ---
Consultation
-
Date/Time Consultation Requested: 05/08/2025 8:00 AM
Date/Time Consultation Performed: 05/08/2025 848
Requesting Provider: Dr. Vanegas
Performing Provider: Dr. Centeno
Reason for Consultation: End-stage renal disease
Medical History
-
Chief Complaint: End-stage renal disease
History of Present Illness:
This is a 75-year-old female who has diabetes mellitus type 2 which is typically uncontrolled on insulin therapy, atrial fibrillation on anticoagulation with Eliquis, hyperlipidemia on statin therapy. She has started on HD in 10/2024 mainly
cardiorenal, ischemic cardiomyopathy with ejection fraction of 30%. pulmonary hypertension, CAD s/p CABG, PAD s/p left first toe amputation, chronic anemia, stage IV sacral decubitus ulcer, lymphedema, H/O Hodgkin's lymphoma (1988), S/P
colostomy/Jonathan procedure, S/P PPM. The patient has been receiving her dialysis at [facility] every Thursday and Thursday at the rehab. The patient was discharged home without proper dialysis follow-up arrangements. An appointment
scheduled for 5:45 AM this morning at the [facility] in [place] was not recognized by the staff there, leading to a failure in receiving dialysis today. The patient complains of ongoing sacral pain and some chronic abdominal discomfort.
She presents to our hospital as she has no place for dialysis. We were consulted for her end-stage renal disease management.
.
Past Medical History
ESRD on HD since 10/2024 , heart failure reduced ejection fraction 30%, coronary artery disease/CABG, paroxysmal atrial fibrillation, lymphedema, non-Hodgkin's lymphoma, Diazemuls type II, ileostomy, diverticulitis, hypertension, GERD,
hyperlipidemia, obesity, pulmonary hypertension, Charcot foot, left ankle fusion, left great toe amputation, cholecystectomy, pacemaker
Past Surgical History: Other (Left great toe amputation PPM Placement CABG x 3 Left Ankle Fusion Ex Lap / Sigmoid Resection / End Colostomy Cholecystectomy)
Social History
Tobacco: Former Smoker
Alcohol: None
Drug: None
Living: Long-Term
Family History
Family History: Not Pertinent
Allergies / Home Medications
Allergy/AdvReac Type Severity Reaction Status Date / Time
erythromycin base Allergy Unknown Verified 05/08/25 08:05
Iodinated Contrast Media Allergy Unknown Verified 05/08/25 08:05
(Iodinated Contrast Media -
IV Dye)
prednisone Allergy Unknown Verified 05/08/25 08:05
sulfamethoxazole (From Allergy Unknown Verified 05/08/25 08:05
Bactrim)
trimethoprim (From Bactrim) Allergy Unknown Verified 05/08/25 08:05
vancomycin Allergy Itching Verified 05/08/25 08:05
AND RED
SCALP
�Medication �Instructions �Recorded �Confirmed �Type
atorvastatin 40 mg tablet (Lipitor) 40 mg PO HS High cholesterol 02/18/23 02/03/25 History
buspirone 5 mg tablet 5 mg PO BID anxiety 02/18/23 02/03/25 History
apixaban 5 mg tablet (Eliquis) 5 mg PO BID Blood Clot 11/02/24 02/03/25 History
Prevention/Tx
cyanocobalamin (vitamin B-12) 1,000 mcg PO DAILY Supplement 11/02/24 02/03/25 History
1,000 mcg tablet
ferrous sulfate 325 mg (65 mg 325 mg PO NOON Supplement 11/02/24 02/03/25 History
iron) tablet
omeprazole 40 mg capsule,delayed 40 mg PO DAILY Gastrointestinal 11/02/24 02/03/25 History
release Issue
benzocaine 6 mg-menthol 10 mg 1 reagan PO Q4HPRN PRN sore throat 12/05/24 02/03/25 Rx
lozenges (Chloraseptic Sore Throat) #30 ea
insulin aspart U-100 100 unit/mL 6 unit (0.06 mL) SC AC diabetes 12/05/24 02/03/25 Rx
(3 mL) subcutaneous pen (Novolog #0 mL
FlexPen U-100 Insulin aspart)
insulin glargine 100 unit/mL (3 14 unit (0.14 mL) SC HS Diabetes 12/05/24 02/03/25 Rx
mL) subcutaneous pen (Lantus #0 mL
Solostar U-100 Insulin)
acetaminophen 325 mg tablet 650 mg PO Q6HPRN PRN mild pain 02/03/25 02/03/25 History
bisacodyl 10 mg rectal suppository 10 mg NH DAILYPRN PRN no results 02/03/25 02/03/25 History
from MOM
dextromethorphan HBr 1 tsp PO Q6HPRN PRN cough, 02/03/25 02/03/25 History
congestion
guaifenesin 10 ml PO Q6HPRN PRN cough 02/03/25 02/03/25 History
mirtazapine 15 mg tablet 15 mg PO HS depression/sleep 02/03/25 02/03/25 History
oxycodone 5 mg tablet 2.5 mg PO DAILYPRN PRN severe pain 02/03/25 02/03/25 History
cefdinir 300 mg capsule 300 mg PO BID 2 days #4 caps 02/06/25 Rx
doxycycline hyclate 100 mg capsule 100 mg PO Q12 2 days #4 caps 02/06/25 Rx
isosorbide mononitrate 30 mg 30 mg PO DAILY Heart 02/06/25 02/03/25 Rx
tablet,extended release 24 hr Disease/Condition #0 tabs
ketotifen fumarate 0.025 % (0.035 1 drp BOTH EYES BID #5 mL 02/06/25 Rx
%) eye drops
metoprolol succinate 25 mg 25 mg PO DAILY #30 tabs 02/06/25 02/03/25 Rx
tablet,extended release 24 hr
midodrine 5 mg tablet 5 mg PO Q8HPRN PRN SBP < 90 02/06/25 Rx
mmHg/Before Hemodilysis #30 tabs
mirtazapine 7.5 mg tablet 7.5 mg PO HS #30 tabs 02/06/25 Rx
simethicone 80 mg chewable tablet 80 mg PO QIDPRN PRN gas pain/bloat 02/06/25 Rx
#30 tabs
Review of Systems
-
History Source: Patient
All other systems: Negative unless noted
Abdomen/GI: Abdominal Pain
: Other (Oligoanuric)
Skin: Other (Sacral decubitus)
Physical Exam
Vital Signs
Vital Signs
Temp Pulse Resp BP Pulse Ox
98.0 F 75 16 111/53 98
05/08/25 08:00 05/08/25 08:00 05/08/25 08:00 05/08/25 08:00 05/08/25 08:00
Physical Exam
General: AOx3, Nontoxic , NAD
HEENT: PERRL, EOMI, Anicteric, Conjunctivae Clear, Ear/Nose Intact, Hearing Normal, Oropharynx Clear/Moist, Dentition Intact, Facial Symmetry, Neck Supple, Neck: Trachea Midline, No JVD and No Thyromegaly, no Bruits
Respiratory: Clear to auscultation bilaterally with normal lung exersion
Cardiac: S1/S2 and Regular Rate/Rhythm
Breast: Deferred by me
Abdomen: Soft, Nontender, Nondistended, Normal Bowel Sounds and No Hepatosplenomegaly
Rectal: Deferred by Provider
Genito-urinary: No Costovertebral Tenderness
Extremities: No Clubbing, No Cyanosis and No Edema
Skin: No Rash , sacral decubiti
Neuro: Nonfocal/Grossly Intact, CN II-XII (Intact) and Strength (Musculoskeletal exam 5 out of 5 both upper and lower extremities)
Hematologic/Lymphatic: No Cervical Lymphadenopathy, No Submandibular Lymphadenopathy and No Supraclavicular Lymphadenopathy
Psych: Mood/afflect pleasant, Insight/judgement good and Appropriate
Vascular: plus 1 pedal and radial pulses
Vascular Access: CVC (Right IJ)
Data Reviewed
-
Medical Tests (Nuc Med, Echo etc): Other (EKG report personally reviewed noted a flutter with V paced rhythm at 61 beats per minute)
Labs: Labs Reviewed by me (BMP CBC)
Old Records: Reviewed (Reviewed previous admission from October 2020 for)
Assessment/Plan
-
Assessment:
ESRD-HD MWF through [facility], started 10/2024
Anemia of CKD
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
Heart failure reduced ejection fraction EF 30-35%
pulm HTN
CAD s/p CABG
PAD s/p left first toe amputation
Paroxysmal atrial fibrillation
Ileostomy
Stage IV sacral decubitus ulcer, INVESTMENT UNDERWRITER
Lymphedema
Plan:
Dialysis will be planned today
No acute volume overload on exam
Orders provided
1500 cc fluid restriction and low-sodium potassium diet
Maintain current antihypertensives for blood pressure control
JORDAN to be provided for anemia
Social work to attempt to arrange for outpatient dialysis but unfortunately patient will likely need to be admitted
[2025-05-08 09:06] LABS: Blood Urea Nitrogen 82 mg/dl (7-17); Calcium 9.5 mg/dl (8.4-10.2); Carbon Dioxide 13 mmol/L (22-30); Chloride 110 mmol/L (98-107); Glucose 227 mg/dl (70-99); Sodium 138 mmol/L (135-145); eGFR 9.06
--- NOTE | 2025-05-08 09:10 | PHANOTE ---
Addendum entered by Khushi Santillan 05/08/25 09:15:
dher physician mention [facility], reach out to them to see if they can fax a medication list over, looks like they might of been out yesterday 05/07/25 to her house
Original Note:
med rec note- patient son in room with patient, he does not have her medication and unwilling to go medications. patient no undated ecw and has been in a nursing since yesterday and no medication give to her today (05/08/25) from son
[2025-05-08 09:38] LABS: % Basophils 0.3 % (0-2); % Eosinophils 0.8 % (0-6); % Immature Granulocytes 0.6 % (0-0.5); % Lymphocytes 7.2 % (20.5-51.1); % Monocytes 7.2 % (1.7-9.3); % Neutrophils 83.9 % (42.2-75.2); Absolute Eosinophils 0.1 10^3/uL (0-0.7); Absolute Lymphocytes 0.5 10^3/uL (1.2-3.4); Absolute Monocytes 0.5 10^3/uL (0.1-0.6); Absolute Neutrophils 5.9 10^3/uL (1.4-6.5); Hematocrit 32.2 % (37.0-47.0); Hemoglobin 10.7 g/dL (12.0-16.0); Mean Corp Hgb Conc. 33.2 g/dL (33.0-37.0); Mean Corpuscular Hgb 32.2 pg (27.0-31.0); Mean Platelet Volume 9.7 fL (7.4-10.4); Nucleated Red Blood Cells % 0 %; Platelet Count 112 10^3/uL (130-400); Red Blood Cell Count 3.32 10^6/uL (4.20-5.40); Red Cell Dist. Width 13.5 % (11.5-14.5); White Blood Cell Count 7.1 10^3/uL (4.8-10.8)
[2025-05-08 10:29] LABS: Potassium 4.3 mmol/L (3.5-5.1)
[2025-05-08] MEDS: ProAmatine 5 MG PO (13:17)
--- NOTE | 2025-05-08 13:27 | W.PN.NEPH.HD ---
Assessment
-
Patient on hemodialysis
Systolic blood pressure stable at current She
Discharge home after dialysis in ER
Progress Note - Hemodialysis
-
Date of Service: May 08, 2025
Duration: 30 minutes and 3 hours
Potassium Bath: 3
Calcium Bath: 2.5
Opti-Dialyzer: 160
Ultrafiltration: Other (2-3kg)
Blood Flow: 400
Dialysate Flow: 600
Heparin: none
[2025-05-08] MEDS: MANNITOL 25% 12.5 GRAMS IV ×2 (14:30→15:40)
--- NOTE | 2025-05-08 14:35 | CM ---
ED CM consult for discharge planning, patient typically resides with her son, she is non ambulatory in a hospital bed
Pt notes independence with transfers, all personal care, self propelling wheelchair and colostomy at baseline
Patient has been at [facility] since November 2024, discharged to home on Sunday 05/06 with [facility]
Patient was under Medicare from 12/05/2024 through 02/21/25, per SNF patient and son declined MA application, converted to private pay with outstanding bill of $31,000
Per [facility], Admissions, not able to return back due to outstanding bill
Pt established by SNF for outpatient dialysis at [facility] 6am chair time due to cleopatra capability
Private pay wheelchair van transport through [facility] [phone] was arranged
Patient sent to ED this morning by HD clinic as pt was without cleopatra sling and staff unable to lift per policy
Patient to received HD in ER, discharge home later today. Son will transport home.
Cleopatra sling provided to son today by SNF and in his possession
Confirmed start date of Outpatient HD with Al at [facility] [phone] on Thursday 05/10, 6am chair time
[facility] transport to HD starting Thursday, will pick pulling machine operator at 515a.
Patient and son in agreement with plan.
[facility] HD nurse confirmed she will fax flow sheet upon completion
No further CM needs at this time
--- NOTE | 2025-05-09 14:51 | CM ---
[facility] 05/09/25 16:08:
Call to son with update
He noted he received a call by [facility] denying transport due to HD
He will call [facility] this evening to confirm transport issues this evening when they open at 6pm
Addendum entered by [facility] 05/09/25 15:39:
Call back to [facility] admissions and spoke with Chelle as community relations coordinator/Trinidad not available
No updates per their notes
Requested escalation to [facility] upper management- no one available to speak with CM
requested urgent calls back from [facility]
Update to Fabiano Cole CM/Director
Original Note:
ED CM received call day after ED discharge from [facility] admissions
She noted that she spoke with [facility] this AM who cannot start HD tomorrow due to alleged transport issues
Clinic noted to admissions that they spoke with a transport provider who are now refusing [place] to clinic [place] transport info and contact number provided to [facility] admissions
Suspect [facility] may have spoken with incorrect transport provider
Call with [facility] [employer] transport/[place] [phone] who confirmed transport still scheduled for HD transport tomorrow
Noted they have NOT received a call from [facility] nor have spoken with them
Multiple calls to [facility] [phone], no answer, VM left
Message left for admissions/Trin[facility] asking for urgent call back to further discuss start of outpt HD tomorrow
Call with [facility] admissions/[facility]
Requested SNF SW assistance with communication with [facility] to ensure start of HD tomorrow
Discussion with Fabiano Cole/CM Director requesting escalation of issue to [facility] upper management
--- NOTE | 2025-05-10 08:21 | CM ---
Call to [facility] clinic this morning
Spoke with Al who noted pt was accepted to start outpt HD this morning and has received tx this morning
Noted transportation with sling work well
== END 2025-05-08 16:50 | disposition home or self-care (01) ==
LOC: EMR 07:57
PROVIDERS: EMERGENCY PHYSICIAN Emergency Medicine; OTHER PHYSICIAN Specialist
DX: N18.6 End stage renal disease (principal); E11.22 Type 2 diabetes mellitus with diabetic chronic kidney disease; D63.1 Anemia in chronic kidney disease; I13.2 Hypertensive heart and chronic kidney disease with heart failure and with stage 5 chronic kidney disease, or end stage renal disease; I27.20 Pulmonary hypertension, unspecified; I48.0 Paroxysmal atrial fibrillation; L89.154 Pressure ulcer of sacral region, stage 4; Z79.01 Long term (current) use of anticoagulants; Z85.71 Personal history of Hodgkin lymphoma; Z87.891 Personal history of nicotine dependence
CPT/HCPCS: 99284; 96374; 80048; 84132; 85025; 93005; G0257

== ENCOUNTER 2025-09-25 10:18 | Emergency (ER) | payer MEDICARE, SELFPAY ==
[2025-09-25 10:21] VITALS: BP 101/66
--- NOTE | 2025-09-25 11:04 | ED.MUSCINJ ---
HPI-Injury
General
Chief Complaint: Musculo-Skeletal Complaint
Source: patient
Time Seen by Provider: 09/25/25 10:54
History of Present Illness-Injury
Initial Injury comments:
75-year-old female presents complaining of left lower leg pain starting 2 days ago. She injured it getting into a car. Since then she has been able to straighten her leg at her knee and complains of pain in her andres. She gets routine wound care
for her sacral wound. She has not been able to move her leg enough to get her wound care. She is typically wheelchair-bound. She has chronic kidney disease on dialysis.
Past History
Past History
ED Past Medical History: Arrthythmia, CAD, Cancer (Hodgkin's lymphoma 1988), CHF, HTN, Hypercholesterolemia, IDDM and [place]
ED Past Surgical History: Cardiac (Bypass surgery) and Orthopedic (Left great toe amputation)
Social History
Tobacco: Non-smoker
Alcohol: None
Drug: None
Personal: Single
Living: with family
Employment: Not employed
Family History
Family History: Unable to obtain
Phy Exam
Physical Exam
Physical Exam:
General: Well-appearing female no acute respiratory distress
HEENT normal cephalic atraumatic
Musculoskeletal exam: Left leg is tender over the proximal and mid andres. There is some swelling and ecchymosis noted here
Vascular: Palpable pulse dorsal aspect left with good sensation to the left foot
Injury Course
Orders/Labs/Results
Orders:
Orders
09/25/25 11:03
CR Leg Tibia/fibula Left 2 Vw Urgent
Comment:
Reason For Exam: pain
09/25/25 12:02
Knee Immobilizer Left-Treatmen ONCE
MDM/Problems Addressed
Differential Diagnosis Includes:
Left lower leg injury. Consider sprain versus hematoma versus fracture. X-rays pending
No concern for DVT as this is traumatic in nature
*Pulse Oximetry
SaO2: 96
Oxygen Mode of Delivery: Room air
Patient hypoxic: no
*Critical Care Note
Total Time (30-74mins, 75-104mins- exclusive of procedures): Not Applicable
Update Note
Update Note:
X-rays demonstrate nondisplaced fracture of the proximal tibia. Discussed with orthopedics who suggested conservative treatment surgery would not likely. Knee immobilizer applied. Discussed with patient and son who takes care of her. They feel
that they use all the resources available for rehab and prefer to go home. Recommended nonweightbearing to the left leg and follow-up with orthopedics
ED Attending Note
-
Portions of this chart may have been created with voice recognition software.� Occasional wrong word or��sound alike� substitutions may have occurred due to the inherent limitations of voice recognition software.
Discharge Plan
Departure
Patient Disposition: Home (Routine Discharge)
Date of Disposition: 09/25/25
Time of Disposition: 14:47
Patient with high blood pressure during this ER visit?: No
Discharge Problem:
Fracture, tibia
Instructions: Muscle and Bone Pain (DC)
Prescriptions:
No Action
atorvastatin [Lipitor] 40 mg Tablet
40 mg PO HS
buspirone 5 mg Tablet
5 mg PO BID
omeprazole 40 mg capsule,delayed release(DR/EC)
40 mg PO DAILY
Eliquis 5 mg tablet
5 mg PO BID
mirtazapine 15 mg Tablet
30 mg PO HS
ketotifen fumarate 0.025 % (0.035 %) Drops
1 drp BOTH EYES BID Qty: 5 0RF
isosorbide mononitrate 30 mg tablet extended release 24 hr
30 mg PO DAILY Qty: 0 0RF
Rx Instructions:
hold for sbp <110
metoprolol succinate 25 mg Tablet Extended Release 24 Hr
25 mg PO DAILY Qty: 30 0RF
Rx Instructions:
hold for sbp <100
acetaminophen [Tylenol Extra Strength] 500 mg Tablet
500 mg PO Q6HPRN PRN (Reason: mild pain)
insulin glargine [Basaglar KwikPen U-100 Insulin] 100 unit/mL (3 mL) Insulin Pen
14 unit SC HS
sevelamer carbonate 800 mg Tablet
800 mg PO AC
oxycodone 5 mg tablet
5 mg PO DAILYPRN PRN (Reason: prior to HD for discomfort from chair)
insulin aspart U-100 [Novolog FlexPen U-100 Insulin] 100 unit/mL (3 mL) insulin pen
2 unit SC AC
Referrals:
NONE,* [Family Provider, Internal Medicine]
Benny Castaneda MD [Active, Orthopedics]
Activity Restrictions/Additional Instructions:
Use brace as much as possible. Do not bear weight on left leg. Follow-up with orthopedics. Return if needed otherwise
Interventions
Interventions:
*Risk Screen - Suicide Last Done: 09/25/25 10:21
*General Assessment Last Done: 09/25/25 12:42
*Neglect/Abuse Screening Last Done: 09/25/25 10:21
*ED- Fall Risk Assessment Last Done: 09/25/25 12:42
*ED COVID-19 Vaccine History Last Done: 09/25/25 12:41
*ED Influenza Vaccine History Last Done: 09/25/25 12:41
ED-Musculoskeletal Assessment Last Done: 09/25/25 12:42
Discharge Date and Time
Print Language: TURKISH
[2025-09-25 15:00] VITALS: BP 130/64
== END 2025-09-25 15:09 | disposition home or self-care (01) ==
LOC: EMR 10:18
PROVIDERS: EMERGENCY PHYSICIAN Emergency Medicine
DX: S82.202A Unspecified fracture of shaft of left tibia, initial encounter for closed fracture (principal); X58.XXXA Exposure to other specified factors, initial encounter; I13.2 Hypertensive heart and chronic kidney disease with heart failure and with stage 5 chronic kidney disease, or end stage renal disease; I50.9 Heart failure, unspecified; E11.22 Type 2 diabetes mellitus with diabetic chronic kidney disease; N18.6 End stage renal disease; I25.10 Atherosclerotic heart disease of native coronary artery without angina pectoris; E78.00 Pure hypercholesterolemia, unspecified; Z85.71 Personal history of Hodgkin lymphoma; Z99.2 Dependence on renal dialysis; Z99.3 Dependence on wheelchair
CPT/HCPCS: 99283; 29505; 73590

== ENCOUNTER 2025-09-27 11:53 | Inpatient (IN) | payer MEDICARE, SELFPAY ==
[2025-09-26] VITALS (9 sets, daily range): BP systolic 119–154; BP diastolic 49–94; O2SAT 94; BMI 26.8
--- NOTE | 2025-09-26 12:56 | ED.GENMED ---
History of Present Illness
General
Chief Complaint: Weakness
Time Seen by Provider: 09/26/25 12:33
History of Present Illness
History of Present Illness:
Patient is a 75-year-old woman presenting to the emergency department at the request of dialysis as a stated they were unable to dialyze her given patient's unable to get into chair independently. Per chart review patient was just seen here
yesterday for a leg fracture. She is wheelchair-bound. She was discharged with nonweightbearing but patient is wheelchair-bound at baseline. She went to dialysis today with her ambulance company who transports her. When she got to dialysis she
was told that she cannot have it as she cannot get the chair independently. Patient did have dialysis a few days ago. She denies any chest pain shortness of breath leg swelling. No confusion.
Past History
Past History
ED Past Medical History: Arrthythmia, CAD, Cancer (Hodgkin's lymphoma 1988), CHF, HTN, Hypercholesterolemia, IDDM and [place]
ED Past Surgical History: Cardiac (Bypass surgery) and Orthopedic (Left great toe amputation)
Social History
Tobacco: Non-smoker
Alcohol: None
Drug: None
Personal: Single
Living: with family
Employment: Not employed
Family History
Family History: Unable to obtain
Phy Exam
Physical Exam
Physical Exam:
GENERAL: in no acute distress
HEENT: normocephalic, extraocular movements intact, moist oral mucosa
NECK: normal inspection
RESPIRATORY: no respiratory distress, clear to auscultation bilaterally
CARDIOVASCULAR: regular rate and rhythm
ABDOMEN/: soft, non-distended, non-tender to palpation, no rebound or guarding
NEUROLOGIC: awake and alert, moves all extremities
SKIN: warm
Course
Orders/Labs/Results
Orders:
Orders
09/26/25 13:15
Basic Metabolic Panel Urgent
09/26/25 13:48
Pt Eval And Treat Urgent
Activity Level: As Tolerated
Abnormal Lab Results
09/26/25
13:15
Sodium 130 L mmol/L
(135-145)
BUN 56 H mg/dl
(7-17)
Creatinine 3.0 H mg/dL
(0.6-1.0)
Glucose 365 H mg/dl
(70-99)
09/26/25 13:15
Vital Signs
Initial and Last Documented VS:
Initial Vital Signs
Temp Pulse Resp BP Pulse Ox
98.5 F 64 20 146/69 97
09/26/25 11:29 09/26/25 11:29 09/26/25 11:29 09/26/25 11:29 09/26/25 11:29
Last Documented Vital Signs
Temp Pulse Resp BP Pulse Ox
98.5 F 60 16 140/88 98
09/26/25 11:29 09/26/25 14:00 09/26/25 12:18 09/26/25 14:00 09/26/25 14:03
MDM/Problems Addressed
Differential Diagnosis Includes:
Patient is a 75-year-old woman presenting to the emergency department after dialysis refused patient that she cannot get into the chair independently. On arrival vitals are unremarkable. On exam patient is at her baseline. Will discuss with
dialysis as well as social work to figure out best next steps. Patient clinically does not need emergent dialysis. Will check basic blood work to make sure her potassium and acidosis is okay.
*Pulse Oximetry
SaO2: 97
Oxygen Mode of Delivery: Room air
Patient hypoxic: no
*Critical Care Note
Total Time (30-74mins, 75-104mins- exclusive of procedures): Not Applicable
Update Note
Update Note:
Patient is slightly uremic. Discussed with nephrology who stated the patient will likely need admission given the dialysis issues
PT did evaluate patient at the request of patient's dialysis center. PT recommends admission for placement.
Discussed with hospitalist who excepted patient to their service
ED Attending Note
-
Portions of this chart may have been created with voice recognition software.� Occasional wrong word or��sound alike� substitutions may have occurred due to the inherent limitations of voice recognition software.
Discharge Plan
Departure
Patient Disposition: Admit
Date of Disposition: 09/26/25
Time of Disposition: 14:39
Presentation/result/management discussed w/ accepting MD/DO: Hospitalist
Discharge Problem:
Fracture of leg
Prescriptions:
No Action
atorvastatin [Lipitor] 40 mg Tablet
40 mg PO HS
buspirone 5 mg Tablet
5 mg PO BID
omeprazole 40 mg capsule,delayed release(DR/EC)
40 mg PO DAILY
Eliquis 5 mg tablet
5 mg PO BID
mirtazapine 15 mg Tablet
30 mg PO HS
ketotifen fumarate 0.025 % (0.035 %) Drops
1 drp BOTH EYES BID Qty: 5 0RF
isosorbide mononitrate 30 mg tablet extended release 24 hr
30 mg PO DAILY Qty: 0 0RF
Rx Instructions:
hold for sbp <110
metoprolol succinate 25 mg Tablet Extended Release 24 Hr
25 mg PO DAILY Qty: 30 0RF
Rx Instructions:
hold for sbp <100
acetaminophen [Tylenol Extra Strength] 500 mg Tablet
500 mg PO Q6HPRN PRN (Reason: mild pain)
insulin glargine [Basaglar KwikPen U-100 Insulin] 100 unit/mL (3 mL) Insulin Pen
14 unit SC HS
sevelamer carbonate 800 mg Tablet
800 mg PO AC
oxycodone 5 mg tablet
5 mg PO DAILYPRN PRN (Reason: prior to HD for discomfort from chair)
insulin aspart U-100 [Novolog FlexPen U-100 Insulin] 100 unit/mL (3 mL) insulin pen
2 unit SC AC
Referrals:
NONE,* [Family Provider, Internal Medicine]
Interventions
Interventions:
*Risk Screen - Suicide Last Done: 09/26/25 11:29
*General Assessment Last Done: 09/26/25 12:21
*Neglect/Abuse Screening Last Done: 09/26/25 11:29
*ED- Fall Risk Assessment Last Done: 09/26/25 12:21
*ED COVID-19 Vaccine History Last Done: 09/26/25 12:21
*ED Influenza Vaccine History Last Done: 09/26/25 12:21
ED- Cardiac Assessment Last Done: 09/26/25 12:21
ED- Neurological Assessment Last Done: 09/26/25 12:21
ED- Pulmonary Assessment Last Done: 09/26/25 12:21
Discharge Date and Time
Print Language: SETSWANA
[2025-09-26 13:43] LABS: Blood Urea Nitrogen 56 mg/dl (7-17); Calcium 9.4 mg/dl (8.4-10.2); Carbon Dioxide 23 mmol/L (22-30); Chloride 98 mmol/L (98-107); Glucose 365 mg/dl (70-99); Potassium 4.5 mmol/L (3.5-5.1); Sodium 130 mmol/L (135-145); eGFR 15.92
--- NOTE | 2025-09-26 15:23 | EDCM ---
Addendum entered by Margarette Hernandez 09/26/25 16:50:
PCP: Therese Islas, they come to the house, pt could not give specific name.
Pharmacy: [facility].
Pt did not know if she has prescription coverage.
I spoke to Shavonne Conrad at [facility], report filed, she told me someone will follow up with the pt, hopefully while she is in the hospital.
Original Note:
CM was asked to see pt by ED provider regarding dialysis transport. Pt lives alone in multistory home, she stays on basement level which has a bathroom. She sleeps in a recliner which helps her to a standing position. Her son assists her during the
day, helps her transfer to wheelchair. She has not ambulated in several years. She is alone at night.
She goes to [facility] for dialysis [facility], transported by [facility] in wheelchair van. She told me transport time is between 10 and 11am, her chair time is 1115.
She called the Dialysis Unit this morning telling them she could not get there. They advised her to come to the ED.
Pt was seen in ED yesterday, found to have L tibia fracture and placed in Knee Immobilizer and instructed to follow up with Ortho.
She told us she needed PT to say she qualifies for Ambulance transport. She was seen by Brenna from PT, She is not safe for discharge home. ED Provider made aware.
Pt's son left ED during PT visit.
I spoke to pt's brewery worker Delmi at [phone]. Per Delmi, pt needs to be able to stand from wheelchair and pivot to dialysis chair. I called her back and informed her pt is being admitted, also expressed my concern about pt being
home alone at night.
I spoke to Chelle from [facility], pt is current with them. RN see for wound care, per notes pt has 2 stage 3 sacral wounds. I also expressed my concerns to her about pt being home alone.
I met with pt again, confirmed she does not have any help in the home other than [facility].
I left a voicemail for [facility], awaiting a call back.
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
--- NOTE | 2025-09-26 15:44 | W.CON.NEPH ---
Consultation
-
Date/Time Consultation Requested: 09/26/2025 3 PM
Date/Time Consultation Performed: 09/26/2025 3 PM
Requesting Provider: Dr. Molina
Performing Provider: Dr. Tran
Reason for Consultation: ESRD
Medical History
-
Chief Complaint: End-stage renal disease
History of Present Illness:
This is a 75-year-old female who has diabetes mellitus type 2 which is typically uncontrolled on insulin therapy, atrial fibrillation on anticoagulation with Eliquis, hyperlipidemia on statin therapy. She has started on HD in 10/2024 mainly due to
cardiorenal syndrome. She has ischemic cardiomyopathy with ejection fraction of 30%, pulmonary hypertension, CAD s/p CABG, PAD s/p left first toe amputation, chronic anemia, stage IV sacral decubitus ulcer, lymphedema, H/O Hodgkin's lymphoma
(1988), S/P colostomy/Jonathan procedure, S/P PPM. She had recently been at [facility] but then was able to get home with dialysis at [facility]. She typically has [facility] transport but on the weekends they do not run and
so her family will take her. This last Thursday after dialysis she had apparently injured herself on the car door with fracture. She was unable to await and when she had called the dialysis unit today they had told her that they would not be able
to dialyze her because of the higher level of care that she would clearly require. She was then sent to the emergency room. She has been very good about her weight gains and fluid restrictions. She denies any inconsistencies with her dialysis.
Past Medical History
ESRD on HD since 10/2024 , heart failure reduced ejection fraction 30%, coronary artery disease/CABG, paroxysmal atrial fibrillation, lymphedema, non-Hodgkin's lymphoma, Diazemuls type II, ileostomy, diverticulitis, hypertension, GERD,
hyperlipidemia, obesity, pulmonary hypertension, Charcot foot, left ankle fusion, left great toe amputation, cholecystectomy, pacemaker
Past Surgical History: Other (Left great toe amputation PPM Placement CABG x 3 Left Ankle Fusion Ex Lap / Sigmoid Resection / End Colostomy Cholecystectomy)
Social History
Tobacco: Former Smoker
Alcohol: None
Drug: None
Living: Snf
Family History
Family History: Not Pertinent
Allergies / Home Medications
Allergy/AdvReac Type Severity Reaction Status Date / Time
erythromycin base Allergy Unknown Verified 09/26/25 11:29
Iodinated Contrast Media Allergy Unknown Verified 09/26/25 11:29
(Iodinated Contrast Media -
IV Dye)
prednisone Allergy Unknown Verified 09/26/25 11:29
sulfamethoxazole (From Allergy Unknown Verified 09/26/25 11:29
Bactrim)
trimethoprim (From Bactrim) Allergy Unknown Verified 09/26/25 11:29
vancomycin Allergy Itching Verified 09/26/25 11:29
AND RED
SCALP
�Medication �Instructions �Recorded �Confirmed �Type
atorvastatin 40 mg tablet (Lipitor) 40 mg PO HS High cholesterol 02/18/23 09/26/25 History
buspirone 5 mg tablet 5 mg PO BID anxiety 02/18/23 09/26/25 History
apixaban 5 mg tablet (Eliquis) 5 mg PO BID Blood Clot 11/02/24 09/26/25 History
Prevention/Tx
omeprazole 40 mg capsule,delayed 40 mg PO DAILY Gastrointestinal 11/02/24 09/26/25 History
release Issue
mirtazapine 15 mg tablet 22.5 mg PO HS depression/sleep 02/03/25 09/26/25 History
isosorbide mononitrate 30 mg 30 mg PO DAILY Heart 02/06/25 09/26/25 Rx
tablet,extended release 24 hr Disease/Condition #0 tabs
acetaminophen 500 mg tablet 500 mg PO Q6HPRN PRN mild pain 05/08/25 09/26/25 History
(Tylenol Extra Strength)
insulin aspart U-100 100 unit/mL 8 unit SC AC diabetes 05/08/25 09/26/25 History
(3 mL) subcutaneous pen (Novolog
FlexPen U-100 Insulin aspart)
insulin glargine 100 unit/mL (3 24 unit SC HS Diabetes 05/08/25 09/26/25 History
mL) subcutaneous pen (Basaglar
KwikPen U-100 Insulin)
sevelamer carbonate 800 mg tablet 800 mg PO AC 05/08/25 09/26/25 History
ergocalciferol (vitamin D2) 1,250 1,250 mcg PO GONZALEZ Supplement 09/26/25 09/26/25 History
mcg (50,000 unit) capsule
hydrocodone 5 mg-acetaminophen 300 2 tab PO TUTHFR 09/26/25 09/26/25 History
mg tablet
metoprolol succinate 25 mg 25 mg PO DAILY Blood Pressure 09/26/25 09/26/25 History
tablet,extended release 24 hr
midodrine 5 mg tablet 5 mg PO TID 09/26/25 09/26/25 History
Review of Systems
-
No chest pain or shortness of breath. Inability to ambulate
All other systems: Negative unless noted
Physical Exam
Vital Signs
Vital Signs
Temp Pulse Resp BP Pulse Ox
98.5 F 60 16 154/52 98
09/26/25 11:29 09/26/25 15:30 09/26/25 15:30 09/26/25 15:00 09/26/25 14:03
Lab Results
Sodium 130 mmol/L (135-145) L 09/26/25 13:15
Potassium 4.5 mmol/L (3.5-5.1) 09/26/25 13:15
Chloride 98 mmol/L (98-107) 09/26/25 13:15
Carbon Dioxide 23 mmol/L (22-30) 09/26/25 13:15
BUN 56 mg/dl (7-17) H 09/26/25 13:15
Creatinine 3.0 mg/dL (0.6-1.0) H 09/26/25 13:15
eGFR 15.92 09/26/25 13:15
Glucose 365 mg/dl (70-99) H 09/26/25 13:15
Calcium 9.4 mg/dl (8.4-10.2) 09/26/25 13:15
Laboratory Tests
05/08/25 05/08/25
08:40 09:27
Potassium 4.3
Carbon Dioxide 13 L*
Physical Exam
Patient is awake alert oriented and in no distress. Mood and affect were pleasant, insight and judgment were good. Pupils are equal round and reactive to light, extraocular movements are intact, sclera were anicteric. Hearing was normal, ears and
nose are intact. Oropharynx was clear. Neck was supple with trachea midline and no thyromegaly. Heart was regular rate and rhythm without rubs. Lower extremities without edema. Lungs were clear to auscultation bilaterally and with normal
excursion. Abdomen was soft, nontender, with normal active bowel sounds, and no hepatosplenomegaly. Skin was without rash and with normal turgor. Right sided dialysis catheter chest
Data Reviewed
-
Radiology: Image Personally Visualized and interpreted (Left leg x-ray with central left tibia fracture comminuted)
Labs: Labs Reviewed by me
Old Records: Reviewed
Assessment/Plan
-
Assessment:
ESRD-HD TTS Camiperla Lukas through [facility], started 10/2024
Anemia of ESRD
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
Heart failure reduced ejection fraction EF 30-35%
pulm HTN
CAD s/p CABG
PAD s/p left first toe amputation
Paroxysmal atrial fibrillation
Ileostomy
Stage IV sacral decubitus ulcer, PATIENT SERVICES COORDINATOR
Lymphedema
Left tibial fracture
Plan:
No acute dialysis needs
Next dialysis tomorrow morning
Maintain fluid restriction
Will need rehab or therapy
[2025-09-26] MEDS: ROXICODONE 5 MG PO (17:32)
[2025-09-26] MEDS: RENVELA 800 MG PO (17:32)
[2025-09-26] MEDS: TYLENOL 650 MG PO (17:32)
[2025-09-26 17:48] LABS: Glucose - Point of Care 337 mg/dl (70-99)
[2025-09-26] MEDS: NOVOLOG FLEXPEN 8 UNITS SC (17:58)
[2025-09-26] MEDS: NOVOLOG FLEXPEN-LOW RESISTANCE 4 UNITS SC (17:59)
--- NOTE | 2025-09-26 18:41 | PTCARENOTE ---
Patient arrived from ED. AAO x 3. VSS. Patent complaining of 8/10 LLE pain. Left leg immobilizer in place--skin underneath assessed. Positive pulses, patient able to wiggle toes, no new numbness and/or tingling, sensations intact. Static overlay
placed due to patient's present on admission pressure injuries. Q2 hour turn. PRN oxy and tylenol administered for pain management. Patient oriented to room. Call csatanon castanon and personal belongings within reach.
[2025-09-26] MEDS: BUSPAR 5 MG PO (19:46)
[2025-09-26] MEDS: ELIQUIS 5 MG PO (19:46)
[2025-09-26 20:49] LABS: Glucose - Point of Care 218 mg/dl (70-99)
[2025-09-26] MEDS: LANTUS 0.24 UNITS SC (21:17)
[2025-09-26] MEDS: LIPITOR 40 MG PO (21:17)
[2025-09-26] MEDS: REMERON 22.5 MG PO (21:23)
[2025-09-27 03:43] VITALS: BP 128/48
[2025-09-27 06:00] VITALS: BMI 26.6
[2025-09-27 07:25] LABS: Glucose - Point of Care 209 mg/dl (70-99)
[2025-09-27 07:43] VITALS: BP 163/68
[2025-09-27] MEDS: NOVOLOG FLEXPEN 8 UNITS SC ×3 (07:50→16:48)
[2025-09-27] MEDS: NOVOLOG FLEXPEN-LOW RESISTANCE 2 UNITS SC (07:51)
[2025-09-27] MEDS: ROXICODONE 5 MG PO ×2 (07:52→22:18)
--- NOTE | 2025-09-27 08:20 | PTCARENOTE ---
Pt receiving dialysis this morning, will wait until she is finished to give her morning medications.
[2025-09-27 08:36] LABS: Hematocrit 32.0 % (37.0-47.0); Hemoglobin 10.4 g/dL (12.0-16.0)
--- NOTE | 2025-09-27 08:45 | W.PN.HOSP.TC ---
Addendum entered and electronically signed by Carlo Molina MD 09/27/25 11:53:
Since patient cannot obtain access to HD due to ambulatory deficiency because of LLE Fx - no safe discharge plan at this time
Original Note:
Today's Communication/Plan
-
Medically stable for d/c to STR when arranged by CM
Assessment / Plan
Assessment / Plan
74 y/o female with s/p harmanns with colostomy, Hx of hodgkins lymphoma, CHB s/p PPM, persistent atrial fibrillation, CAD s/p CABG and ICMO, DM, HFrEF, ESRD on HD, sacral decubitus ulcer. R axilarry/subclavian vein stenosis, anemia, ischemic CM,
anxiety came to the hospital after she was denied help to get out off the HD chair in the HD suit, since her family could not make it there for help. Patient had injured her leg 3 days before this admisison when car minerva got accidently slammed upon
it. due to ongoing pain her VN asked patient to come to the hospital day prior and she was found vertical fracture line extending through the central proximal left tibia on the frontal view. This appears comminuted with additional component of
fracture line involving the medial aspect of the proximal left tibia. Additionally, subtle deformity of the lateral tibial plateau, suggesting lateral tibial plateau component to the fracture. As per discussion with orthopedics and ED at that time -
treatment would be conservative with immobilizer and NWB. Because of tese limitations patient could not ambulate approprietly in the HD suit.
Patient does not report any home insecurity or home abuse. Medically stable for d/c to STR when arranged by CM
A/P:
#Ambulatory deficiency 2/2 acute proximal L tibial Fx
Limiting outpatient HD
PT/OT
CM for STR
Pain mgmt
Ortho () in 2 weeks
#ESRD on HD
Nephro for HD
#Hyponatremia
correct with HD
#DM type 2 with nephropathy
Insulin basal/bolus, DM diet, Insulin SS
#chronic HFrEF
#Hx of AVB s/p PPM
#CAD s/p CABG
#Ischemic CM
#Persistent Afib
#ANDI on CKD 4 (cardiorenal)
#Hypotension, chronic
#Anemia most likely 2/2 ESRD
#Right axillary/subclavian vein stenosis
#Anxiety/depression
#GERD
#S/P colostomy
cont home meds
#left ischial pressure injury, present on admission
#sacral pressure injury
#Chronic LE lymphedema b/l
would care
DVT ppx Eliquis
Full code
I have spent at least 55min reviewing chart, test results, communication with consultants and providing direct patient care
Anticipated Discharge: Within 24 hours
Subjective/Interval History
-
Date of Service: September 27, 2025
Objective Data
-
Labs:
Laboratory Results
09/27/25
08:26
Hgb 10.4 L
Hct 32.0 L
Sodium Pending
Potassium Pending
Chloride Pending
Carbon Dioxide Pending
Vital Signs:
Vital Signs
Temp Pulse Resp BP Pulse Ox
97.7 F 61 14 128/48 98
09/27/25 03:43 09/27/25 03:43 09/27/25 03:43 09/27/25 03:43 09/27/25 03:43
I&O
09/26/25 09/27/25 09/28/25
06:59 06:59 06:59
Output Total
Balance -
Review of Systems
-
History Source: Patient
All other systems: Reviewed and negative
Physical Exam
-
General: No Apparent Distress
HEENT: Normocephalic
Respiratory: Clear to Auscultation
Cardiac: Irregular Rhythm
Neuro: Awake, Alert, Oriented and AO x 3
Psych: Calm
[2025-09-27 08:51] LABS: Carbon Dioxide 29 mmol/L (22-30); Chloride 101 mmol/L (98-107); Potassium 3.7 mmol/L (3.5-5.1); Sodium 137 mmol/L (135-145)
[2025-09-27] MEDS: RETACRIT 4000 UNITS IV (09:16)
--- NOTE | 2025-09-27 09:58 | CM ---
Addendum entered by Janeen Kaufman 09/27/25 15:26:
Patient has switched to inpatient, IMM reviewed with patient, referral sent from ED to [facility], per case resource manager, Ruel he came out from [facility], ' to see patient with similar referral about a year ago, ' Per
[facility] patient is alert and oriented and can make her own decisions. airport location manager also received a call from [place] supervisor dry paste [facility],
airport location manager will follow with patient and discuss skilled placement again with patient as patient has to be able to receive HD as outpatient if she goes home.
Original Note:
airport location manager reviewed patient's chart and met with patient this am, OBS letter reviewed and signed, patient was admitted under OBS, and does not qualify for skilled placement through insurance, residential case manager reached out to [facility] to see if patient
would qualify for 3 day waiver program, however patient does not qualify for Medicare WAIVER. Offered patient private pay for skilled placement and patient declined stating that she is not going to a skilled facility. airport location manager discussed
requirements for outpatient HD center and patient states she will be able to do that, patient is current with [facility], and patient states she wants to return to home with [facility].
Plan; Patient is refusing skilled placement, wants home with [facility].
[2025-09-27 10:08] VITALS: BMI 26.6
[2025-09-27] MEDS: MANNITOL 25% 12.5 GRAMS IV (10:32)
--- NOTE | 2025-09-27 10:42 | VNURNOTE ---
Addendum entered by Magalie Sams RN 09/27/25 14:53:
[facility] Resumption referral placed in [facility].
Original Note:
Chart reviewed. Patient is current with [facility]. Will continue to follow hospital course and DC plans.
[2025-09-27 11:00] VITALS: BP 130/60
[2025-09-27] MEDS: HEPARIN 4000 UNITS INTRACATH (11:20)
--- NOTE | 2025-09-27 11:57 | W.PN.NEPH.HD ---
Assessment
-
pt seen during HD
vitals stable s/p midodrine
CVC functions fine
UF as tolerates
Progress Note - Hemodialysis
-
Date of Service: September 27, 2025
Duration: 30 minutes and 3 hours
Potassium Bath: 2
Calcium Bath: 2.5
Opti-Dialyzer: 160
Ultrafiltration: Other (2-2.5kg)
Blood Flow: 400
Dialysate Flow: 600
Heparin: no
EPO: 4000
[2025-09-27] MEDS: PROTONIX 40 MG PO (12:00)
[2025-09-27] MEDS: IMDUR (EXTENDED RELEASE) 30 MG PO (12:00)
[2025-09-27] MEDS: BUSPAR 5 MG PO ×2 (12:01→21:09)
[2025-09-27] MEDS: RENVELA PO ×2 (12:01→12:13)
[2025-09-27] MEDS: TOPROL XL 25 MG PO (12:01)
[2025-09-27] MEDS: ELIQUIS 5 MG PO ×2 (12:01→21:07)
[2025-09-27 12:09] LABS: Glucose - Point of Care 94 mg/dl (70-99)
[2025-09-27] MEDS: NOVOLOG FLEXPEN-LOW RESISTANCE SC (12:10)
[2025-09-27] MEDS: RENVELA 800 MG PO ×2 (12:12→16:49)
--- NOTE | 2025-09-27 13:48 | WOUNDNOTE ---
RIGHT ANTERIOR LOWER LEG
--- NOTE | 2025-09-27 13:49 | WOUNDNOTE ---
RIGHT LATERAL LOWER LEG
--- NOTE | 2025-09-27 13:59 | WOUNDNOTE ---
[facility] RN note: Patient admitted with left tibial fracture
See H&P for complete history.
PMH: #chronic HFrEF
#Hx of AVB s/p PPM
#CAD s/p CABG
#Ischemic CM
#Persistent Afib
#ANDI on CKD 4 (cardiorenal)
#Hypotension, chronic
#Anemia most likely 2/2 ESRD
#Right axillary/subclavian vein stenosis
#Anxiety/depression
#GERD
#S/P colostomy
Diabetes
Wound Location and type/assessment: Patient admitted with stage 4 sacral and left ischium PI. Please see worklist for measurements and details. Wounds do not appear infected and are not malodorous. The left ischium wound has rolled edges. Both
wounds have macerated edges. Heels with boggy stage 1 PI and right LE abrasions. Patient reports sleeping and sitting in recliner with air cushion. Patient reports getting assistance from son daily.
Appetite: Good
Pressure redistribution devices in place: Static air overlay, turning schedule, keep heels off-loaded with pillow or air cushion under calves.
Plan: Applied no-sting barrier around sacral and ischial wounds, may also use zinc ointment around wounds to protect from drainage. Sacral and ischial wounds covered with silicone border foam. No-sting barrier and adhesive foam applied to heels and
sacral foam applied to right LE abrasions. DAO la. Will confirm orders with hospitalist.
Updated care plan and will follow as needed.
Note to case management of equipment requested for discharge:
Recommend follow up at wound care center upon discharge.
[2025-09-27 15:00] VITALS: BP 132/46
--- NOTE | 2025-09-27 16:00 | PTCARENOTE ---
Wound care completed by wound care nurses today. Will check the wounds again in a few hours to see if they are soiled.
[2025-09-27 16:42] LABS: Glucose - Point of Care 179 mg/dl (70-99)
[2025-09-27] MEDS: NOVOLOG FLEXPEN-LOW RESISTANCE 1 UNITS SC (16:49)
[2025-09-27 19:22] VITALS: BP 121/44
[2025-09-27 20:52] LABS: Glucose - Point of Care 203 mg/dl (70-99)
[2025-09-27] MEDS: REMERON 22.5 MG PO (21:06)
[2025-09-27] MEDS: LIPITOR 40 MG PO (21:06)
[2025-09-27] MEDS: LIPITOR PO (21:08)
[2025-09-27] MEDS: LANTUS 0.24 UNITS SC (21:27)
[2025-09-27 23:37] VITALS: BP 140/50
[2025-09-28 03:49] VITALS: BP 133/54
[2025-09-28 06:00] VITALS: BMI 26.8
[2025-09-28 07:11] LABS: Glucose - Point of Care 264 mg/dl (70-99)
[2025-09-28 07:43] VITALS: BP 136/49
[2025-09-28] MEDS: NOVOLOG FLEXPEN 8 UNITS SC ×3 (09:44→18:33)
[2025-09-28] MEDS: NOVOLOG FLEXPEN-LOW RESISTANCE 3 UNITS SC ×2 (09:45→14:30)
[2025-09-28] MEDS: RENVELA 800 MG PO ×2 (09:46→18:32)
[2025-09-28] MEDS: ELIQUIS 5 MG PO ×2 (09:47→19:43)
[2025-09-28] MEDS: TOPROL XL 25 MG PO (09:47)
[2025-09-28] MEDS: PROTONIX 40 MG PO (09:47)
[2025-09-28] MEDS: IMDUR (EXTENDED RELEASE) 30 MG PO (09:48)
[2025-09-28] MEDS: BUSPAR 5 MG PO ×2 (09:48→19:43)
[2025-09-28] MEDS: ROXICODONE 5 MG PO (10:10)
--- NOTE | 2025-09-28 10:30 | PN.CDI ---
CDI
- -
CDI:
Physician Documentation Request
Admit Date: 09/27/25 11:53
Dear Doctor Tracy,
Clinical Indicators:
Patient admitted with ambulatory dysfunction due to acute proximal L tibial fracture.
09/27 Additional pressure injury noted by WOC RN: Bilateral Heel Stage 1 Pressure Injury, POA
Treatment: Adhesive foam dressing
Physician documentation of the type and location of wounds is required for compliant documentation. Based on the above clinical findings and your assessment, please provide the following in your progress note:
1. Location of the ulcer/wound, including laterality.
2. Type (etiology) of ulcer/wound:
- Pressure (decubitus) ulcer
- Other, please specify
3. If a pressure ulcer, please also include the stage* of the ulcer:
- Stage 1 - Skin intact, non-blanchable redness
- Stage 2 - Partial thickness loss of dermis, includes intact or open blister
- Stage 3 - Full thickness tissue not including bone, tendon or muscle
- Stage 4 - Full thickness tissue loss, including exposed bone, tendon or muscle
- Unstageable - Full thickness loss in which the base of the ulcer is covered by slough (yellow, aguila, portillo, green or brown) and/or eschar (aguila, brown or black) in the wound bed.
- Unable to determine
Use of terms such as suspected, likely, concern for, or probable (associated with a specific diagnosis that is being evaluated, monitored, or treated as if it exists) are acceptable and can be coded in the inpatient setting, when documented at the
time of discharge.
Thank you,
ISAIAS Barakat RN
CDI Specialist
available via tiger text
Please use your independent medical judgment in providing your response.
*Source: National Pressure Ulcer Advisory Panel (NPUAP)
--- NOTE | 2025-09-28 10:51 | W.PN.HOSP.TC ---
Today's Communication/Plan
-
decrease pain mgmt since patient often sleepy
CM to cont working on placement
Assessment / Plan
Assessment / Plan
74 y/o female with s/p harmanns with colostomy, Hx of hodgkins lymphoma, CHB s/p PPM, persistent atrial fibrillation, CAD s/p CABG and ICMO, DM, HFrEF, ESRD on HD, sacral decubitus ulcer. R axilarry/subclavian vein stenosis, anemia, ischemic CM,
anxiety came to the hospital after she was denied help to get out off the HD chair in the HD suit, since her family could not make it there for help. Patient had injured her leg 3 days before this admisison when car minerva got accidently slammed upon
it. due to ongoing pain her VN asked patient to come to the hospital day prior and she was found vertical fracture line extending through the central proximal left tibia on the frontal view. This appears comminuted with additional component of
fracture line involving the medial aspect of the proximal left tibia. Additionally, subtle deformity of the lateral tibial plateau, suggesting lateral tibial plateau component to the fracture. As per discussion with orthopedics and ED at that time -
treatment would be conservative with immobilizer and NWB. Because of tese limitations patient could not ambulate approprietly in the HD suit.
Patient does not report any home insecurity or home abuse. Medically stable for d/c to STR when arranged by CM
Since patient cannot obtain access to HD due to ambulatory deficiency because of LLE Fx - no safe discharge plan at this time
A/P:
#Ambulatory deficiency 2/2 acute proximal L tibial Fx
Limiting outpatient HD
PT/OT
CM for STR
Pain mgmt
Ortho () in 2 weeks
#ESRD on HD
Nephro for HD
#Hyponatremia
correct with HD
#DM type 2 with nephropathy
Insulin basal/bolus, DM diet, Insulin SS
#chronic HFrEF
#Hx of AVB s/p PPM
#CAD s/p CABG
#Ischemic CM
#Persistent Afib
#ANDI on CKD 4 (cardiorenal)
#Hypotension, chronic
#Anemia most likely 2/2 ESRD
#Right axillary/subclavian vein stenosis
#Anxiety/depression
#GERD
#S/P colostomy
cont home meds
#left ischial pressure injury, present on admission
#sacral pressure injury
#Chronic LE lymphedema b/l
would care
DVT ppx Eliquis
Full code
I have spent at least 36min reviewing chart, test results, communication with consultants and providing direct patient care
Anticipated Discharge: 24 - 48 hours
Subjective/Interval History
-
Date of Service: September 28, 2025
Objective Data
-
Vital Signs:
Vital Signs
Temp Pulse Resp BP Pulse Ox
97.6 F 61 17 136/49 95
09/28/25 07:43 09/28/25 09:47 09/28/25 07:43 09/28/25 09:47 09/28/25 07:43
I&O
09/27/25 09/28/25 09/29/25
06:59 06:59 06:59
Output Total 100 / 100
Balance -25 / -25 -100 / -100
Review of Systems
-
History Source: Patient
All other systems: Reviewed and negative
Physical Exam
-
General: Comfortable
HEENT: Normocephalic
Cardiac: Regular Rhythm
GI: Soft, Nontender and Nondistended
Neuro: Awake, Alert, Oriented and AO x 3
Psych: Calm
--- NOTE | 2025-09-28 10:53 | PTCARENOTE ---
Assumed care of pt from previous nurse. Pt provided prn pain medication for lle, will observe for effectiveness. Pt lle in an immobilizer. Maintained on bedrest. pt is on tele running [employer]. Pt call castanon is within reach, pt rings tomás. will cont to
monitor.
[2025-09-28 11:07] VITALS: BP 100/43
[2025-09-28 12:44] LABS: Glucose - Point of Care 286 mg/dl (70-99)
[2025-09-28 14:34] LABS: Blood Urea Nitrogen 33 mg/dl (7-17); Calcium 9.0 mg/dl (8.4-10.2); Carbon Dioxide 27 mmol/L (22-30); Chloride 97 mmol/L (98-107); Estimated Creatinine Clearance 21 ml/min; Glucose 286 mg/dl (70-99); Potassium 3.8 mmol/L (3.5-5.1); Sodium 129 mmol/L (135-145); eGFR 23.09
[2025-09-28] MEDS: MANNITOL 25% 12.5 GRAMS IV (14:47)
[2025-09-28] MEDS: FLEXBUMIN 25% FOR HEMODIALYSIS 12.5 GRAMS IV (14:48)
[2025-09-28] MEDS: RETACRIT 2000 UNITS IV (14:54)
[2025-09-28 15:27] VITALS: BP 106/56
--- NOTE | 2025-09-28 16:15 | W.PN.NEPH.HD ---
Assessment
-
pt seen during HD
vitals stable with midodrine
UF as tolerates
next HD Thursday
CVC functions fine
Progress Note - Hemodialysis
-
Date of Service: September 28, 2025
Duration: 3 hours
Potassium Bath: 3
Calcium Bath: 2.5
Opti-Dialyzer: 160
Ultrafiltration: Other (1-1.5kg)
Blood Flow: 400
Dialysate Flow: 600
Heparin: no
EPO: 2000
[2025-09-28 16:33] LABS: Glucose - Point of Care 136 mg/dl (70-99)
[2025-09-28] MEDS: NOVOLOG FLEXPEN-LOW RESISTANCE SC (16:36)
[2025-09-28] MEDS: RENVELA PO (17:04)
[2025-09-28] MEDS: ULTRAM 25 MG PO (18:32)
[2025-09-28 19:21] VITALS: BP 104/47
[2025-09-28 20:51] LABS: Glucose - Point of Care 86 mg/dl (70-99)
[2025-09-28] MEDS: LIPITOR 40 MG PO (21:42)
[2025-09-28] MEDS: REMERON 22.5 MG PO (21:42)
[2025-09-28 22:31] LABS: Glucose - Point of Care 100 mg/dl (70-99)
[2025-09-28] MEDS: LANTUS SC (22:50)
[2025-09-28] MEDS: LANTUS 0.15 UNITS SC (22:52)
[2025-09-28 23:16] VITALS: BP 111/39
[2025-09-29] VITALS (7 sets, daily range): BP systolic 94–162; BP diastolic 37–57; PULSE 65; BMI 27.2
[2025-09-29] MEDS: TYLENOL 650 MG PO (01:45)
[2025-09-29] MEDS: ULTRAM 25 MG PO ×3 (02:32→21:58)
[2025-09-29 08:32] LABS: Glucose - Point of Care 316 mg/dl (70-99)
[2025-09-29] MEDS: RENVELA 800 MG PO ×3 (09:57→17:12)
[2025-09-29] MEDS: PROTONIX 40 MG PO (09:57)
[2025-09-29] MEDS: TOPROL XL 25 MG PO (09:57)
[2025-09-29] MEDS: BUSPAR 5 MG PO ×2 (09:57→21:55)
[2025-09-29] MEDS: ELIQUIS 5 MG PO ×2 (09:57→21:54)
[2025-09-29] MEDS: IMDUR (EXTENDED RELEASE) 30 MG PO (09:58)
--- NOTE | 2025-09-29 10:17 | CM ---
developer relations manager reviewed patient's chart including patient progress notes with physical therapy and met with patient and reviewed options, and patient is now agreeable to skilled placement, skilled options reviewed and patient has selected, [facility] and [facility], [facility] and [facility] referrals sent to all of theses facilities, next HD session is Sunday 09/30 will reach out to HD nurse for morning HD shift.
Plan; Skilled placement, referrals sent to [facility], [facility] and [facility].
--- NOTE | 2025-09-29 11:00 | W.PN.HOSP.TC ---
Today's Communication/Plan
-
XR L tibia
ortho consult
Assessment / Plan
Assessment / Plan
74 y/o female with s/p harmanns with colostomy, Hx of hodgkins lymphoma, CHB s/p PPM, persistent atrial fibrillation, CAD s/p CABG and ICMO, DM, HFrEF, ESRD on HD, sacral decubitus ulcer. R axilarry/subclavian vein stenosis, anemia, ischemic CM,
anxiety came to the hospital after she was denied help to get out off the HD chair in the HD suit, since her family could not make it there for help. Patient had injured her leg 3 days before this admisison when car minerva got accidently slammed upon
it. due to ongoing pain her VN asked patient to come to the hospital day prior and she was found vertical fracture line extending through the central proximal left tibia on the frontal view. This appears comminuted with additional component of
fracture line involving the medial aspect of the proximal left tibia. Additionally, subtle deformity of the lateral tibial plateau, suggesting lateral tibial plateau component to the fracture. As per discussion with orthopedics and ED at that time -
treatment would be conservative with immobilizer and NWB. Because of tese limitations patient could not ambulate approprietly in the HD suit.
Patient does not report any home insecurity or home abuse.
Due to worsening LLE pain - ortho consult
Since patient cannot obtain access to HD due to ambulatory deficiency because of LLE Fx - no safe discharge plan at this time
A/P:
#Ambulatory deficiency 2/2 acute proximal L tibial Fx
persistent pain
Limiting outpatient HD
PT/OT
CM for STR
Pain mgmt
Ortho consult
XR
#ESRD on HD
Nephro for HD
#Hyponatremia
correct with HD
#DM type 2 with nephropathy
Insulin basal/bolus, DM diet, Insulin SS
#chronic HFrEF
#Hx of AVB s/p PPM
#CAD s/p CABG
#Ischemic CM
#Persistent Afib
#ANDI on CKD 4 (cardiorenal)
#Hypotension, chronic
#Anemia most likely 2/2 ESRD
#Right axillary/subclavian vein stenosis
#Anxiety/depression
#GERD
#S/P colostomy
cont home meds
#left ischial pressure injury, present on admission
#sacral pressure injury
#Chronic LE lymphedema b/l
#Bilateral Heel Stage 1 Pressure Injury, POA
would care
DVT ppx Eliquis
Full code
I have spent at least 51min reviewing chart, test results, communication with consultants and providing direct patient care
Anticipated Discharge: 24 - 48 hours
Subjective/Interval History
-
Date of Service: September 29, 2025
Objective Data
-
Vital Signs:
Vital Signs
Temp Pulse Resp BP Pulse Ox
98 F 61 16 162/57 98
09/29/25 09:07 09/29/25 10:00 09/29/25 09:07 09/29/25 10:00 09/29/25 09:07
I&O
09/28/25 09/29/25 09/30/25
06:59 06:59 06:59
Intake Total 540 / 540
Output Total 100 / 100 50 / 50
Balance -100 / -100 540 / 540 -50 / -50
Physical Exam
-
General: No Apparent Distress
HEENT: Normocephalic
GI: Soft, Nontender and Nondistended
Neuro: Awake, Alert, Oriented and AO x 3
Psych: Calm
[2025-09-29] MEDS: NOVOLOG FLEXPEN 8 UNITS SC ×3 (11:02→18:05)
[2025-09-29] MEDS: NOVOLOG FLEXPEN-LOW RESISTANCE 4 UNITS SC ×2 (11:03→14:27)
--- NOTE | 2025-09-29 11:06 | W.PN.UPDATE ---
Update Note
Progress Note Update
Full orthopedic consult dictated:
Patient unfortunately has sustained comminuted lateral tibial plateau fracture without significant displacement so recommendations for nonsurgical with knee immobilizer, nonweightbearing and serial x-rays. Unfortunately she was admitted to the
hospital secondary to ambulatory dysfunction. Orthopedics was asked to see her due to increased pain in her lower extremity. Patient does have peripheral neuropathy but no numbness, tingling or weakness noted. Of significance, she has had left
ankle fusion [address] Henri high at [facility]. She has also had left great toe amputation. She is afebrile and white count is normal. Left knee has small effusion. Ecchymosis noted from around the knee and down throughout the left lower extremity.
Tenderness over the proximal lateral tibial plateau. Range of motion of the knee not assessed secondary to fracture. Left ankle well-healed surgical incisions. Ecchymosis is noted down by the ankle. It does appear as though she has well-healed
wound about the anterior lateral aspect of the distal tibia. Left ankle is fused so range of motion diminished. Compartments throughout the lower extremity are compressible without pain. She does have generalized pain over the lateral aspect of
the ankle. Sensation is intact, pulses palpable in foot is warm to touch. She does have dressing over her heel secondary to breakdown. No significant warmth or erythema in the lower extremity. I do not see any signs of cellulitis or compartment
syndrome involving the lower extremity. I am going to order an x-ray of the left ankle. Continue with knee immobilizer and nonweightbearing. Ice with elevation to control swelling and pain. We will follow-up on x-ray tomorrow. She will need to
return to the office in about 2 weeks for x-ray to check position of the lateral tibial plateau fracture.
[2025-09-29 12:37] LABS: Glucose - Point of Care 321 mg/dl (70-99)
--- NOTE | 2025-09-29 15:15 | W.PN.NEPH.PH ---
Today's Communication / Plan
-
HD tomorrow
Assessment/Plan
-
Assessment:
ESRD-HD TTS [facility] through [facility], started 10/2024
Anemia of ESRD
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
Heart failure reduced ejection fraction EF 30-35%
pulm HTN
CAD s/p CABG
PAD s/p left first toe amputation
Paroxysmal atrial fibrillation
Ileostomy
Stage IV sacral decubitus ulcer, [employer] MONITOR BODY
Lymphedema
Left tibial fracture
Plan:
Next dialysis tomorrow morning
Maintain fluid restriction
Await rehab placement
-
-
Date of Service: September 29, 2025
CC / HPI / ROS
-
Chief Complaint:
ESRD
History of Present Illness:
Tolerated dialysis yesterday
BP stable
Pain from tibial fracture stable
Review of Systems:
No chest pain or shortness of breath
Labs
-
Labs:
Hgb 10.4 g/dL (12.0-16.0) L 09/27/25 08:26
Hct 32.0 % (37.0-47.0) L 09/27/25 08:26
Sodium 129 mmol/L (135-145) L D 09/28/25 13:28
Potassium 3.8 mmol/L (3.5-5.1) 09/28/25 13:28
Chloride 97 mmol/L (98-107) L 09/28/25 13:28
Carbon Dioxide 27 mmol/L (22-30) 09/28/25 13:28
BUN 33 mg/dl (7-17) H 09/28/25 13:28
Creatinine 2.2 mg/dL (0.6-1.0) H 09/28/25 13:28
eGFR 23.09 09/28/25 13:28
Glucose 286 mg/dl (70-99) H 09/28/25 13:28
Calcium 9.0 mg/dl (8.4-10.2) 09/28/25 13:28
Physical Exam
-
Vital Signs:
Vital Signs
Temp Pulse Resp BP Pulse Ox
98.6 F 61 16 128/46 98
09/29/25 11:05 09/29/25 11:05 09/29/25 11:05 09/29/25 11:05 09/29/25 11:05
Cardiovascular:: Regular rate and rhythm
Respiratory:: Bilateral: CTA
Lung Excursion:: Normal
Abdomen:: Nontender and Soft
Bowel Sounds:: Normal
Extremity Edema:: None: Bilateral:
[2025-09-29 16:59] LABS: Glucose - Point of Care 218 mg/dl (70-99)
[2025-09-29] MEDS: NOVOLOG FLEXPEN-LOW RESISTANCE 2 UNITS SC (18:06)
[2025-09-29 21:55] LABS: Glucose - Point of Care 169 mg/dl (70-99)
[2025-09-29] MEDS: LIPITOR 40 MG PO (21:55)
[2025-09-29] MEDS: LANTUS 0.24 UNITS SC (21:58)
[2025-09-29] MEDS: REMERON 22.5 MG PO (22:02)
[2025-09-30 03:00] VITALS: BP 147/54
[2025-09-30 06:00] VITALS: BMI 27.1
[2025-09-30 07:20] VITALS: BP 151/56
[2025-09-30 07:20] LABS: Glucose - Point of Care 325 mg/dl (70-99)
[2025-09-30] MEDS: NOVOLOG FLEXPEN SC ×2 (08:11→08:24)
[2025-09-30] MEDS: NOVOLOG FLEXPEN-LOW RESISTANCE 4 UNITS SC (08:13)
[2025-09-30] MEDS: PROTONIX 40 MG PO (08:14)
[2025-09-30] MEDS: ELIQUIS 5 MG PO ×2 (08:16→21:59)
[2025-09-30] MEDS: BUSPAR 5 MG PO ×2 (08:16→21:59)
[2025-09-30 08:37] LABS: Hematocrit 31.6 % (37.0-47.0); Hemoglobin 10.5 g/dL (12.0-16.0)
[2025-09-30 08:41] LABS: Carbon Dioxide 27 mmol/L (22-30); Chloride 99 mmol/L (98-107); Potassium 3.5 mmol/L (3.5-5.1); Sodium 133 mmol/L (135-145)
[2025-09-30] MEDS: RENVELA PO (09:13)
[2025-09-30] MEDS: MANNITOL 25% 12.5 GRAMS IV ×2 (09:36→10:50)
[2025-09-30] MEDS: FLEXBUMIN 25% FOR HEMODIALYSIS 12.5 GRAMS IV ×2 (09:40→10:50)
[2025-09-30] MEDS: RETACRIT 2000 UNITS IV (09:46)
[2025-09-30] MEDS: ULTRAM 25 MG PO ×2 (09:59→16:09)
--- NOTE | 2025-09-30 10:31 | W.PN.HOSP.TC ---
Today's Communication/Plan
-
remains medically stable for D/C - CM aware, awaiting for acceptance to STR
Assessment / Plan
Assessment / Plan
74 y/o female with s/p harmanns with colostomy, Hx of hodgkins lymphoma, CHB s/p PPM, persistent atrial fibrillation, CAD s/p CABG and ICMO, DM, HFrEF, ESRD on HD, sacral decubitus ulcer. R axilarry/subclavian vein stenosis, anemia, ischemic CM,
anxiety came to the hospital after she was denied help to get out off the HD chair in the HD suit, since her family could not make it there for help. Patient had injured her leg 3 days before this admisison when car minerva got accidently slammed upon
it. due to ongoing pain her VN asked patient to come to the hospital day prior and she was found vertical fracture line extending through the central proximal left tibia on the frontal view. This appears comminuted with additional component of
fracture line involving the medial aspect of the proximal left tibia. Additionally, subtle deformity of the lateral tibial plateau, suggesting lateral tibial plateau component to the fracture. As per discussion with orthopedics and ED at that time -
treatment would be conservative with immobilizer and NWB. Because of tese limitations patient could not ambulate approprietly in the HD suit.
Patient does not report any home insecurity or home abuse.
Due to worsening LLE pain - ortho consult
Since patient cannot obtain access to HD due to ambulatory deficiency because of LLE Fx - no safe discharge plan at this time
A/P:
#Ambulatory deficiency 2/2 acute proximal L tibial Fx
persistent pain
Limiting outpatient HD
PT/OT
CM for STR
Pain mgmt
Ortho consult: follow up in 2 weeks
XR L tibia/ankle - appropriate alignment and healing of known tibal plato Fx, no new Fx
#ESRD on HD
Nephro for HD
#Hyponatremia
correct with HD
#DM type 2 with nephropathy
Insulin basal/bolus, DM diet, Insulin SS
#chronic HFrEF
#Hx of AVB s/p PPM
#CAD s/p CABG
#Ischemic CM
#Persistent Afib
#ANDI on CKD 4 (cardiorenal)
#Hypotension, chronic
#Anemia most likely 2/2 ESRD
#Right axillary/subclavian vein stenosis
#Anxiety/depression
#GERD
#S/P colostomy
cont home meds
#left ischial pressure injury, present on admission
#sacral pressure injury
#Chronic LE lymphedema b/l
#Bilateral Heel Stage 1 Pressure Injury, POA
would care
DVT ppx Eliquis
Full code
I have spent at least 51min reviewing chart, test results, communication with consultants and providing direct patient care
Anticipated Discharge: > 48 hours
Subjective/Interval History
-
Date of Service: September 30, 2025
Objective Data
-
Labs:
Laboratory Results
09/30/25
08:18
Hgb 10.5 L
Hct 31.6 L
Sodium 133 L
Potassium 3.5
Chloride 99
Carbon Dioxide 27
Vital Signs:
Vital Signs
Temp Pulse Resp BP Pulse Ox
97.6 F 62 19 151/56 97
09/30/25 07:20 09/30/25 08:15 09/30/25 07:20 09/30/25 08:15 09/30/25 07:20
I&O
09/29/25 09/30/25 10/01/25
06:59 06:59 05:59
Intake Total 540 / 540 360 / 360
Output Total 50 / 50
Balance 540 / 540 310 / 310
Review of Systems
-
History Source: Patient
All other systems: Reviewed and negative
Physical Exam
-
General: No Apparent Distress
HEENT: Normocephalic
Respiratory: Clear to Auscultation
Cardiac: Regular Rhythm
Neuro: Awake, Alert, Oriented and AO x 3
Psych: Calm
[2025-09-30 11:15] VITALS: BP 120/41
[2025-09-30] MEDS: HEPARIN 4300 UNITS INTRACATH (11:28)
[2025-09-30 12:01] LABS: Glucose - Point of Care 128 mg/dl (70-99)
--- NOTE | 2025-09-30 12:03 | W.PN.NEPH.HD ---
Assessment
-
Pt seen on HD. no complaints. VSS, access ok
Progress Note - Hemodialysis
-
Date of Service: September 30, 2025
Duration: 3 hours
Potassium Bath: 3
Calcium Bath: 2.5
Opti-Dialyzer: 160
Ultrafiltration: Other (1kg)
Blood Flow: 400
Dialysate Flow: 600
Heparin: 0
EPO: 2000 units
[2025-09-30] MEDS: IMDUR (EXTENDED RELEASE) PO (12:15)
[2025-09-30] MEDS: TOPROL XL PO (12:17)
[2025-09-30] MEDS: NOVOLOG FLEXPEN-LOW RESISTANCE SC (12:21)
[2025-09-30] MEDS: RENVELA 800 MG PO ×2 (12:57→17:12)
[2025-09-30] MEDS: NOVOLOG FLEXPEN 8 UNITS SC ×2 (12:58→17:16)
--- NOTE | 2025-09-30 13:45 | W.PN.UPDATE ---
Update Note
Progress Note Update
The patient was seen and examined by Orthopedic surgery on rounds. Since admission, she reports mild improvement in pain.
CR Ankle - LEFT 3 Views; CR Foot - LEFT 2 Views; CR Leg Tibia/Fibula LEFT 2 Vw was obtained at [facility] on 09/29/2025 and was made available for my review today. Impression: Comminuted fracture of the proximal left tibia, which appears
stable from examination of 09/25/2025. No other fractures identified. Post-surgical changes of the left ankle and foot from fusion. No evidence for acute fracture or dislocation of the left ankle or foot.
Recommendation is to continue with the knee immobilizer NWB. Ice with elevation to control swelling and pain. Pain control per primary team.
She will return to the office in approximately 2 weeks for x-ray to check position of her lateral tibial plateau fracture. All questions were answered.
[2025-09-30 15:51] VITALS: BP 124/51
[2025-09-30 17:16] LABS: Glucose - Point of Care 152 mg/dl (70-99)
[2025-09-30] MEDS: NOVOLOG FLEXPEN-LOW RESISTANCE 1 UNITS SC (17:17)
[2025-09-30 19:00] VITALS: BP 137/50
[2025-09-30 21:39] LABS: Glucose - Point of Care 139 mg/dl (70-99)
[2025-09-30] MEDS: REMERON 22.5 MG PO (21:59)
[2025-09-30] MEDS: LIPITOR 40 MG PO (21:59)
[2025-09-30] MEDS: LANTUS 0.24 UNITS SC (22:03)
[2025-09-30] MEDS: TYLENOL 650 MG PO (22:04)
[2025-09-30 23:00] VITALS: BP 129/49
[2025-10-01 03:00] VITALS: BP 122/46
[2025-10-01 06:00] VITALS: BMI 27.0
[2025-10-01 07:37] LABS: Glucose - Point of Care 160 mg/dl (70-99)
[2025-10-01 07:45] VITALS: BP 140/56
[2025-10-01] MEDS: IMDUR (EXTENDED RELEASE) 30 MG PO (08:19)
[2025-10-01] MEDS: BUSPAR 5 MG PO ×2 (08:19→22:41)
[2025-10-01] MEDS: TOPROL XL 25 MG PO (08:19)
[2025-10-01] MEDS: ELIQUIS 5 MG PO ×2 (08:19→22:41)
[2025-10-01] MEDS: PROTONIX 40 MG PO (08:19)
[2025-10-01] MEDS: NOVOLOG FLEXPEN-LOW RESISTANCE 1 UNITS SC (08:20)
[2025-10-01] MEDS: NOVOLOG FLEXPEN SC (08:25)
[2025-10-01] MEDS: RENVELA PO (08:26)
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
[2025-10-01] MEDS: ULTRAM 50 MG PO (11:17)
[2025-10-01 11:25] VITALS: BP 107/43
[2025-10-01 11:39] LABS: Glucose - Point of Care 243 mg/dl (70-99)
[2025-10-01] MEDS: NOVOLOG FLEXPEN 8 UNITS SC ×2 (12:19→17:01)
[2025-10-01] MEDS: NOVOLOG FLEXPEN-LOW RESISTANCE 3 UNITS SC ×2 (12:20→17:03)
[2025-10-01] MEDS: RENVELA 800 MG PO ×2 (12:20→17:00)
--- NOTE | 2025-10-01 13:19 | CM ---
Addendum entered by Janeen Kaufman 10/01/25 13:22:
[facility] have declined patient
Plan; Waiting on [facility] for skilled placement.
Original Note:
load manager continues to follow with patient and reviewed possible placement and patient is now agreeable to [facility] where patient was in the past, referral sent to [facility], per patient [facility] is too far for placement, [place] in
[place] is an option along with [facility].
Plan; Hopefully skilled placement at [facility], referral sent.
--- NOTE | 2025-10-01 13:30 | W.PN.NEPH.PH ---
Today's Communication / Plan
-
HD thursday
Assessment/Plan
-
Assessment:
ESRD-HD TTS Camiper[facility] Lukas through [facility], started 10/2024
Anemia of ESRD
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
Heart failure reduced ejection fraction EF 30-35%
pulm HTN
CAD s/p CABG
PAD s/p left first toe amputation
Paroxysmal atrial fibrillation
Ileostomy
Stage IV sacral decubitus ulcer, FLIGHT NURSE
Lymphedema
Left tibial fracture
Plan:
Next dialysis thursday
Maintain fluid restriction
Await rehab placement, can move HD schedule around if needed
-
-
Date of Service: October 01, 2025
CC / HPI / ROS
-
Chief Complaint:
ESRD
History of Present Illness:
Tolerated dialysis yesterday
BP stable
Pain from tibial fracture stable
Review of Systems:
No chest pain or shortness of breath
Labs
-
Labs:
Hgb 10.5 g/dL (12.0-16.0) L 09/30/25 08:18
Hct 31.6 % (37.0-47.0) L 09/30/25 08:18
Sodium 133 mmol/L (135-145) L 09/30/25 08:18
Potassium 3.5 mmol/L (3.5-5.1) 09/30/25 08:18
Chloride 99 mmol/L (98-107) 09/30/25 08:18
Carbon Dioxide 27 mmol/L (22-30) 09/30/25 08:18
BUN 33 mg/dl (7-17) H 09/28/25 13:28
Creatinine 2.2 mg/dL (0.6-1.0) H 09/28/25 13:28
eGFR 23.09 09/28/25 13:28
Glucose 286 mg/dl (70-99) H 09/28/25 13:28
Calcium 9.0 mg/dl (8.4-10.2) 09/28/25 13:28
Physical Exam
-
Vital Signs:
Vital Signs
Temp Pulse Resp BP Pulse Ox
97.9 F 64 18 107/43 99
10/01/25 11:25 10/01/25 12:19 10/01/25 11:25 10/01/25 12:19 10/01/25 11:25
Cardiovascular:: Regular rate and rhythm
Respiratory:: Bilateral: Coarse
Lung Excursion:: Normal
Abdomen:: Nontender and Soft
Bowel Sounds:: Normal
Extremity Edema:: None: Bilateral:
[2025-10-01 15:42] VITALS: BP 138/52
[2025-10-01 16:25] LABS: Glucose - Point of Care 256 mg/dl (70-99)
[2025-10-01] MEDS: TYLENOL 650 MG PO ×2 (17:00→22:43)
[2025-10-01 19:00] VITALS: BP 123/45
[2025-10-01 21:12] LABS: Glucose - Point of Care 178 mg/dl (70-99)
[2025-10-01] MEDS: LIPITOR 40 MG PO (22:41)
[2025-10-01] MEDS: REMERON 22.5 MG PO (22:41)
[2025-10-01] MEDS: LANTUS 0.24 UNITS SC (22:42)
[2025-10-01 23:00] VITALS: BP 139/51
[2025-10-02 03:16] VITALS: BP 141/66
[2025-10-02 05:49] VITALS: BMI 26.5
[2025-10-02 07:00] VITALS: BP 149/56
[2025-10-02 07:58] LABS: Glucose - Point of Care 188 mg/dl (70-99)
[2025-10-02] MEDS: ULTRAM 50 MG PO ×2 (08:20→22:17)
[2025-10-02] MEDS: RENVELA 800 MG PO ×3 (08:20→17:22)
[2025-10-02] MEDS: IMDUR (EXTENDED RELEASE) 30 MG PO (08:21)
[2025-10-02] MEDS: TOPROL XL 25 MG PO (08:21)
[2025-10-02] MEDS: BUSPAR 5 MG PO ×2 (08:21→22:17)
[2025-10-02] MEDS: PROTONIX 40 MG PO (08:21)
[2025-10-02] MEDS: ELIQUIS 5 MG PO ×2 (08:21→22:16)
[2025-10-02] MEDS: NOVOLOG FLEXPEN 8 UNITS SC ×3 (08:22→17:23)
[2025-10-02] MEDS: NOVOLOG FLEXPEN-LOW RESISTANCE 1 UNITS SC ×2 (08:24→17:23)
--- NOTE | 2025-10-02 10:06 | CM ---
ED CM received call from [facility] missing persons investigator/Ruel Ramírez [phone]
He is assigned to case
Provided assigned CM name and number to him
--- NOTE | 2025-10-02 10:24 | CM ---
Addendum entered by Ena Slaughter 10/02/25 14:07:
[facility] can accept, requesting clinicals faxed to [phone] to set up HD chair.
Call to [facility], hep B within 30 days (done 09/19- negative), will fax to CM.
TT to Physician for chest xray.
Plan; [facility] SNF pending HD set up
Original Note:
CM reviewed chart, message to liaison at [facility] to review patient/confirm bed availability.
MARLEEN spoke with Delmi FISHER, at [facility] ([phone]), discussed working to find SNF for patient with on site dialysis.
Patient being followed by Ruel DYE ([phone])
CM will continue to follow for all d/c planning needs.
Plan; SNF with HD, awaiting bed availability from [facility]
[2025-10-02 11:00] VITALS: BP 126/47
[2025-10-02 11:11] LABS: Glucose - Point of Care 229 mg/dl (70-99)
[2025-10-02] MEDS: NOVOLOG FLEXPEN-LOW RESISTANCE 2 UNITS SC (11:57)
[2025-10-02 15:00] VITALS: BP 131/56
--- NOTE | 2025-10-02 15:00 | W.PN.HOSP.TC ---
Today's Communication/Plan
-
HD tomorrow
DC planning to SNF
Assessment / Plan
Assessment / Plan
Assessment:
Ambulatory deficiency 2/2 acute proximal L tibial Fx
- pain control
- Ortho following; knee immobilizer in place. f/u in 2 weeks
- PT/OT - SNF recommended
ESRD on HD
- Nephro for HD
Hyponatremia
- correct with HD
DM type 2 with nephropathy
- Insulin basal/bolus, DM diet, Insulin SS
chronic HFrEF
Hx of AVB s/p PPM
CAD s/p CABG
Ischemic CM
Persistent Afib
Hypotension, chronic
Anemia most likely 2/2 ESRD
Right axillary/subclavian vein stenosis
Anxiety/depression
GERD
S/P colostomy
left ischial pressure injury, present on admission
sacral pressure injury
Chronic LE lymphedema b/l
Bilateral Heel Stage 1 Pressure Injury, POA
- wound care following
DVT ppx: Eliquis
Code: Full
Anticipated Discharge: Within 24 hours
Subjective/Interval History
-
Date of Service: October 02, 2025
pain controlled
awaiting SNF placement
Objective Data
-
Vital Signs:
Vital Signs
Temp Pulse Resp BP Pulse Ox
97.9 F 62 16 126/47 99
10/02/25 11:00 10/02/25 11:47 10/02/25 11:00 10/02/25 11:47 10/02/25 11:00
I&O
10/01/25 10/02/25 10/03/25
05:59 06:59 06:59
Intake Total 500 / 500 460 / 460
Balance 500 / 500 460 / 460
Physical Exam
-
General: No Apparent Distress
HEENT: Normocephalic and Atraumatic
Respiratory: Negative Wheezes
Cardiac: Regular Rhythm and S1/S2
GI: Soft and Nontender
Musculoskeletal: Other (L knee immobilizer)
Neuro: AO x 3
Psych: Calm
Data Reviewed
-
Total Time Spent with Patient (in minutes): 42
Labs: Labs Reviewed by me
--- NOTE | 2025-10-02 15:05 | W.PN.NEPH.PH ---
Today's Communication / Plan
-
Dialysis tomorrow
Assessment/Plan
-
Assessment:
ESRD-HD TTS [facility] Gaytan through [facility], started 10/2024
Anemia of ESRD
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
Heart failure reduced ejection fraction EF 30-35%
pulm HTN
CAD s/p CABG
PAD s/p left first toe amputation
Paroxysmal atrial fibrillation
Ileostomy
Stage IV sacral decubitus ulcer, THERAPIST
Lymphedema
Left tibial fracture
Plan:
Next dialysis thursday
Maintain fluid restriction
Await rehab placement, can move HD schedule around if needed
-
-
Date of Service: October 02, 2025
CC / HPI / ROS
-
Chief Complaint:
ESRD
History of Present Illness:
Tolerated dialysis yesterday
BP stable
Pain from tibial fracture stable
Review of Systems:
No chest pain or shortness of breath
Labs
-
Labs:
Hgb 10.5 g/dL (12.0-16.0) L 09/30/25 08:18
Hct 31.6 % (37.0-47.0) L 09/30/25 08:18
Sodium 133 mmol/L (135-145) L 09/30/25 08:18
Potassium 3.5 mmol/L (3.5-5.1) 09/30/25 08:18
Chloride 99 mmol/L (98-107) 09/30/25 08:18
Carbon Dioxide 27 mmol/L (22-30) 09/30/25 08:18
BUN 33 mg/dl (7-17) H 09/28/25 13:28
Creatinine 2.2 mg/dL (0.6-1.0) H 09/28/25 13:28
eGFR 23.09 09/28/25 13:28
Glucose 286 mg/dl (70-99) H 09/28/25 13:28
Calcium 9.0 mg/dl (8.4-10.2) 09/28/25 13:28
Physical Exam
-
Vital Signs:
Vital Signs
Temp Pulse Resp BP Pulse Ox
97.9 F 62 16 126/47 99
10/02/25 11:00 10/02/25 11:47 10/02/25 11:00 10/02/25 11:47 10/02/25 11:00
Cardiovascular:: Regular rate and rhythm
Respiratory:: Bilateral: Coarse
Lung Excursion:: Normal
Abdomen:: Nontender and Soft
Bowel Sounds:: Normal
Extremity Edema:: None: Bilateral:
[2025-10-02 17:04] LABS: Glucose - Point of Care 168 mg/dl (70-99)
[2025-10-02] MEDS: TYLENOL 650 MG PO (17:21)
[2025-10-02 19:57] VITALS: BP 129/99
[2025-10-02 21:17] LABS: Glucose - Point of Care 98 mg/dl (70-99)
[2025-10-02] MEDS: REMERON 22.5 MG PO (22:17)
[2025-10-02] MEDS: LIPITOR 40 MG PO (22:17)
[2025-10-02] MEDS: LANTUS 0.24 UNITS SC (22:18)
[2025-10-02 23:31] VITALS: BP 138/63
[2025-10-03] VITALS (8 sets, daily range): BP systolic 97–149; BP diastolic 46–61; O2SAT 98; BMI 26.9
[2025-10-03 08:07] LABS: Glucose - Point of Care 179 mg/dl (70-99)
[2025-10-03] MEDS: NOVOLOG FLEXPEN-LOW RESISTANCE 1 UNITS SC ×3 (08:49→17:03)
[2025-10-03] MEDS: PROTONIX 40 MG PO (08:57)
[2025-10-03] MEDS: ULTRAM 50 MG PO ×2 (09:00→22:00)
--- NOTE | 2025-10-03 09:00 | PTCARENOTE ---
10/03- Patient will wait for medications to be administered as ordered S/P HD this morning. Will administer medications S/P HD.
[2025-10-03] MEDS: NOVOLOG FLEXPEN 8 UNITS SC ×3 (09:07→17:03)
[2025-10-03] MEDS: RENVELA 800 MG PO ×3 (09:07→17:02)
[2025-10-03 09:49] LABS: Blood Urea Nitrogen 85 mg/dl (7-17); Calcium 9.5 mg/dl (8.4-10.2); Carbon Dioxide 23 mmol/L (22-30); Chloride 104 mmol/L (98-107); Estimated Creatinine Clearance 14 ml/min; Glucose 179 mg/dl (70-99); Potassium 4.3 mmol/L (3.5-5.1); Sodium 140 mmol/L (135-145); eGFR 14.20
[2025-10-03 11:50] LABS: Glucose - Point of Care 166 mg/dl (70-99)
--- NOTE | 2025-10-03 12:47 | CM ---
Plan was skilled placement at [facility] today however per admissions at [facility], patient owes [facility] $30,000 and she will need to pay bill before they will accept patient, case investigator to speak with patient and son.
Soraida; Skilled placement v's home with VN.
[2025-10-03] MEDS: BUSPAR 5 MG PO ×2 (13:26→20:55)
[2025-10-03] MEDS: IMDUR (EXTENDED RELEASE) 30 MG PO (13:26)
[2025-10-03] MEDS: TOPROL XL 25 MG PO (13:27)
[2025-10-03] MEDS: ELIQUIS 5 MG PO ×2 (13:27→20:55)
--- NOTE | 2025-10-03 13:39 | W.PN.HOSP.TC ---
Today's Communication/Plan
-
medically stable for DC pending placement
Assessment / Plan
Assessment / Plan
Assessment:
Ambulatory deficiency 2/2 acute proximal L tibial Fx
- pain control
- Ortho following; knee immobilizer in place. f/u in 2 weeks
- PT/OT - SNF recommended
ESRD on HD
- Nephro for HD
Hyponatremia
- correct with HD
DM type 2 with nephropathy
- Insulin basal/bolus, DM diet, Insulin SS
chronic HFrEF
Hx of AVB s/p PPM
CAD s/p CABG
Ischemic CM
Persistent Afib
Hypotension, chronic
Anemia most likely 2/2 ESRD
Right axillary/subclavian vein stenosis
Anxiety/depression
GERD
S/P colostomy
left ischial pressure injury, present on admission
sacral pressure injury
Chronic LE lymphedema b/l
Bilateral Heel Stage 1 Pressure Injury, POA
- wound care following
DVT ppx: Eliquis
Code: Full
Anticipated Discharge: 24 - 48 hours
Subjective/Interval History
-
Date of Service: October 03, 2025
resting comfortably
Objective Data
-
Labs:
Laboratory Results
10/03/25
08:35
Sodium 140
Potassium 4.3
Chloride 104
Carbon Dioxide 23
BUN 85 H
Creatinine 3.3 H
Glucose 179 H
Calcium 9.5
Vital Signs:
Vital Signs
Temp Pulse Resp BP Pulse Ox
97.4 F 59 12 108/65 99
10/03/25 11:14 10/03/25 11:14 10/03/25 11:14 10/03/25 13:26 10/03/25 11:14
I&O
10/02/25 10/03/25 10/04/25
06:59 06:59 06:59
Intake Total 460 / 460 1080 / 1080
Output Total 300 / 300
Balance 460 / 460 780 / 780
Physical Exam
-
General: No Apparent Distress
HEENT: Normocephalic and Atraumatic
Respiratory: Negative Wheezes
Cardiac: Regular Rhythm and S1/S2
GI: Soft
Musculoskeletal: Other (L knee immobilizer)
Neuro: AO x 3
Psych: Calm
Data Reviewed
-
Total Time Spent with Patient (in minutes): 42
Labs: Labs Reviewed by me
--- NOTE | 2025-10-03 14:25 | W.PN.NEPH.HD ---
Assessment
-
HD tolerated dialysis tomorrow if discharged at rehab otherwise we will do here put back on schedule
Progress Note - Hemodialysis
-
Date of Service: October 03, 2025
Duration: 3 hours
Potassium Bath: 3
Calcium Bath: 2.5
Opti-Dialyzer: 160
Ultrafiltration: Other (1kg)
Blood Flow: 400
Dialysate Flow: 600
Heparin: 0
EPO: 2000 units
--- NOTE | 2025-10-03 14:26 | W.PN.UPDATE ---
Addendum entered and electronically signed by Zac Saavedra DO 10/03/25 14:29:
On reconsideration I will not dialyze her tomorrow as we are uncertain if she is returning to [facility]. Next planned dialysis will be unless told otherwise
Original Note:
Update Note
Progress Note Update
Apparently patient/needs to pay residual fees prior to readmission at [facility] so I do expect her to be here tomorrow for dialysis
[2025-10-03 16:55] LABS: Glucose - Point of Care 181 mg/dl (70-99)
[2025-10-03] MEDS: LIPITOR 40 MG PO (20:55)
[2025-10-03] MEDS: REMERON 22.5 MG PO (20:55)
[2025-10-03 21:08] LABS: Glucose - Point of Care 188 mg/dl (70-99)
[2025-10-03] MEDS: LANTUS 0.24 UNITS SC (21:54)
[2025-10-04 03:06] VITALS: BP 130/51
[2025-10-04 05:45] VITALS: BMI 26.8
[2025-10-04] MEDS: ELIQUIS 5 MG PO ×2 (07:48→19:59)
[2025-10-04] MEDS: PROTONIX 40 MG PO (07:48)
[2025-10-04] MEDS: IMDUR (EXTENDED RELEASE) 30 MG PO (07:48)
[2025-10-04] MEDS: TOPROL XL 25 MG PO (07:48)
[2025-10-04] MEDS: RENVELA 800 MG PO ×3 (07:48→17:31)
[2025-10-04] MEDS: BUSPAR 5 MG PO ×2 (07:48→19:59)
[2025-10-04 07:54] LABS: Glucose - Point of Care 157 mg/dl (70-99)
[2025-10-04 08:00] VITALS: BP 149/52
--- NOTE | 2025-10-04 10:35 | W.PN.HOSP.TC ---
Today's Communication/Plan
-
SNF recommended; ongoing process. CM notes reviewed. Medically stable.
next HD
Assessment / Plan
Assessment / Plan
Assessment:
Ambulatory deficiency 2/2 acute proximal L tibial Fx
- pain control
- Ortho following; knee immobilizer in place. f/u in 2 weeks
- PT/OT - SNF recommended; ongoing process. CM notes reviewed.
ESRD on HD
- Nephro for HD
Hyponatremia
- correct with HD
DM type 2 with nephropathy
- Insulin basal/bolus, DM diet, Insulin SS
chronic HFrEF
Hx of AVB s/p PPM
CAD s/p CABG
Ischemic CM
Persistent Afib
Hypotension, chronic
Anemia most likely 2/2 ESRD
Right axillary/subclavian vein stenosis
Anxiety/depression
GERD
S/P colostomy
left ischial pressure injury, present on admission
sacral pressure injury
Chronic LE lymphedema b/l
Bilateral Heel Stage 1 Pressure Injury, POA
- wound care following
DVT ppx: Eliquis
Code: Full
Dispo: SNF recommended; ongoing process. CM notes reviewed. Medically stable.
Anticipated Discharge: 24 - 48 hours
Subjective/Interval History
-
Date of Service: October 04, 2025
no overnight events
pending SNF placement; initially held up due to residual costs pending at initially planned facility
Objective Data
-
Vital Signs:
Vital Signs
Temp Pulse Resp BP Pulse Ox
98.2 F 61 18 149/52 96
10/04/25 08:00 10/04/25 08:00 10/04/25 08:00 10/04/25 08:00 10/04/25 08:00
I&O
10/03/25 10/04/25 10/05/25
06:59 06:59 06:59
Intake Total 1080 / 1080 580 / 580
Output Total 300 / 300
Balance 780 / 780 580 / 580
Physical Exam
-
General: No Apparent Distress
HEENT: Normocephalic and Atraumatic
Respiratory: Negative Wheezes
Cardiac: Regular Rhythm and S1/S2
Musculoskeletal: Other (L knee immobilizer)
Neuro: AO x 3
Psych: Calm
Data Reviewed
-
Total Time Spent with Patient (in minutes): 41
Labs: Labs Reviewed by me
[2025-10-04] MEDS: NOVOLOG FLEXPEN-LOW RESISTANCE 1 UNITS SC (11:56)
[2025-10-04] MEDS: NOVOLOG FLEXPEN 8 UNITS SC ×3 (11:56→17:31)
--- NOTE | 2025-10-04 12:24 | CM ---
manager title continues to follow with patient progress and spoke with [facility] this morning to see if they can accept patient and they requested flow sheets and progress notes which were faxed.
Plan; To follow up with [facility].
[2025-10-04 12:39] LABS: Glucose - Point of Care 336 mg/dl (70-99)
[2025-10-04] MEDS: NOVOLOG FLEXPEN-LOW RESISTANCE 4 UNITS SC (12:39)
[2025-10-04 12:42] VITALS: BP 136/51
--- NOTE | 2025-10-04 15:51 | W.PN.NEPH.PH ---
Today's Communication / Plan
-
rehab
Assessment/Plan
-
Assessment:
ESRD-HD TTS [facility] Gaytan through [facility], started 10/2024
Anemia of ESRD
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
Heart failure reduced ejection fraction EF 30-35%
pulm HTN
CAD s/p CABG
PAD s/p left first toe amputation
Paroxysmal atrial fibrillation
Ileostomy
Stage IV sacral decubitus ulcer, SOUND EFFECTS PERSON
Lymphedema
Left tibial fracture
Plan:
Next dialysis tomorrow
Maintain fluid restriction
Await rehab placement, can move HD schedule around if needed
looking at [facility]
-
-
Date of Service: October 04, 2025
CC / HPI / ROS
-
Chief Complaint:
ESRD
History of Present Illness:
Tolerated dialysis yesterday
BP stable
Pain from tibial fracture stable
Review of Systems:
No chest pain or shortness of breath
Labs
-
Labs:
Hgb 10.5 g/dL (12.0-16.0) L 09/30/25 08:18
Hct 31.6 % (37.0-47.0) L 09/30/25 08:18
Sodium 140 mmol/L (135-145) 10/03/25 08:35
Potassium 4.3 mmol/L (3.5-5.1) 10/03/25 08:35
Chloride 104 mmol/L (98-107) 10/03/25 08:35
Carbon Dioxide 23 mmol/L (22-30) 10/03/25 08:35
BUN 85 mg/dl (7-17) H 10/03/25 08:35
Creatinine 3.3 mg/dL (0.6-1.0) H 10/03/25 08:35
eGFR 14.20 10/03/25 08:35
Glucose 179 mg/dl (70-99) H 10/03/25 08:35
Calcium 9.5 mg/dl (8.4-10.2) 10/03/25 08:35
Physical Exam
-
Vital Signs:
Vital Signs
Temp Pulse Resp BP Pulse Ox
98.6 F 60 18 136/51 97
10/04/25 12:42 10/04/25 12:42 10/04/25 12:42 10/04/25 12:42 10/04/25 12:42
Cardiovascular:: Regular rate and rhythm
Respiratory:: Bilateral: CTA
Lung Excursion:: Normal
Abdomen:: Nontender and Soft
Bowel Sounds:: Normal
Extremity Edema:: None: Bilateral:
--- NOTE | 2025-10-04 16:01 | WOUNDNOTE ---
[facility] RN NOTE: Followed up with patient today to assess bilateral stage 1 heels and stage 4 PI to left ischium and sacral coccyx. The left ischium wound is stable, as edges are rolled. Wound base clean. Sacral wound is smaller than last assessment
(see work list), and edges continue to be slightly macerated. Wound care provided as ordered with alginate and silicone foam dressing. New heel foam applied and heels off-loaded with pillows under calves. Wound care orders continue to be
appropriate. Will follow up as needed.
[2025-10-04 16:38] VITALS: BP 111/55
[2025-10-04 16:43] LABS: Glucose - Point of Care 143 mg/dl (70-99)
[2025-10-04] MEDS: NOVOLOG FLEXPEN-LOW RESISTANCE SC (17:32)
[2025-10-04 20:15] VITALS: BP 131/54
[2025-10-04 21:28] LABS: Glucose - Point of Care 91 mg/dl (70-99)
[2025-10-04] MEDS: REMERON 22.5 MG PO (21:45)
[2025-10-04] MEDS: ULTRAM 50 MG PO (21:45)
[2025-10-04] MEDS: LIPITOR 40 MG PO (21:45)
[2025-10-04] MEDS: LANTUS SC (21:56)
[2025-10-04 23:03] VITALS: BP 127/58
[2025-10-05 03:01] VITALS: BP 129/61
--- NOTE | 2025-10-05 03:22 | PTCARENOTE ---
Patient`s night time blood sugar was 91. Per Ladan DEL VALLE, hold 2200 dose of Lantus.
[2025-10-05 06:00] VITALS: BMI 26.5
[2025-10-05 07:00] VITALS: BP 128/56
[2025-10-05] MEDS: IMDUR (EXTENDED RELEASE) PO (07:39)
[2025-10-05] MEDS: BUSPAR 5 MG PO (07:39)
[2025-10-05] MEDS: PROTONIX 40 MG PO (07:39)
[2025-10-05] MEDS: ELIQUIS 5 MG PO (07:39)
[2025-10-05] MEDS: ULTRAM 50 MG PO (07:39)
[2025-10-05] MEDS: TOPROL XL PO (07:40)
[2025-10-05] MEDS: RENVELA 800 MG PO ×2 (07:41→12:42)
[2025-10-05 08:02] LABS: Hematocrit 32.6 % (37.0-47.0); Hemoglobin 11.1 g/dL (12.0-16.0)
[2025-10-05] MEDS: FLEXBUMIN 25% FOR HEMODIALYSIS 12.5 GRAMS IV ×2 (08:10→09:40)
[2025-10-05] MEDS: MANNITOL 25% 12.5 GRAMS IV ×2 (08:16→09:44)
[2025-10-05 08:39] LABS: Glucose - Point of Care 163 mg/dl (70-99)
[2025-10-05 08:58] LABS: Blood Urea Nitrogen 82 mg/dl (7-17); Calcium 9.4 mg/dl (8.4-10.2); Carbon Dioxide 24 mmol/L (22-30); Chloride 104 mmol/L (98-107); Estimated Creatinine Clearance 13 ml/min; Glucose 180 mg/dl (70-99); Potassium 4.4 mmol/L (3.5-5.1); Sodium 139 mmol/L (135-145); eGFR 14.73
[2025-10-05] MEDS: NOVOLOG FLEXPEN 8 UNITS SC ×2 (09:01→12:35)
[2025-10-05] MEDS: NOVOLOG FLEXPEN-LOW RESISTANCE 1 UNITS SC (09:02)
--- NOTE | 2025-10-05 10:12 | CM ---
Chart reviewed and foster care case manager met with patient and IMM completed and placed on chart. Patient is for transfer to [facility] today.
[facility]
Report [phone]

Please fax flow sheets to
[2025-10-05] MEDS: HEPARIN 4300 UNITS INTRACATH (10:55)
[2025-10-05 11:00] VITALS: BP 113/46
[2025-10-05 11:43] VITALS: BP 113/46
--- NOTE | 2025-10-05 12:10 | W.PN.NEPH.HD ---
Assessment
-
Pt seen on HD. no new complaints. VSS, access ok. for dc
Progress Note - Hemodialysis
-
Date of Service: October 05, 2025
Duration: 30 minutes and 3 hours
Potassium Bath: 3
Calcium Bath: 2.5
Opti-Dialyzer: 160
Ultrafiltration: Other (1.5kg)
Blood Flow: 400
Dialysate Flow: 600
Heparin: 0
EPO: 0
--- NOTE | 2025-10-05 12:17 | PTCARENOTE ---
Colostomy care completed prior to discharge to [facility]. Patient skin care completed and ostomy appliance changed by this RN.
[2025-10-05 12:27] LABS: Glucose - Point of Care 131 mg/dl (70-99)
--- NOTE | 2025-10-05 12:27 | W.PN.HOSP.TC ---
Today's Communication/Plan
-
dc to SNF
Assessment / Plan
Assessment / Plan
Assessment:
Ambulatory deficiency 2/2 acute proximal L tibial Fx
- pain control
- Ortho following; knee immobilizer in place. f/u in 2 weeks
- PT/OT - SNF recommended; placement today
ESRD on HD
- Nephro for HD
Hyponatremia
- correct with HD
DM type 2 with nephropathy
- Insulin basal/bolus, DM diet, Insulin SS
chronic HFrEF
Hx of AVB s/p PPM
CAD s/p CABG
Ischemic CM
Persistent Afib
Hypotension, chronic
Anemia most likely 2/2 ESRD
Right axillary/subclavian vein stenosis
Anxiety/depression
GERD
S/P colostomy
left ischial pressure injury, present on admission
sacral pressure injury
Chronic LE lymphedema b/l
Bilateral Heel Stage 1 Pressure Injury, POA
- wound care following
DVT ppx: Eliquis
Code: Full
Dispo: SNF recommended; placement today
More than 30 minutes spent in discharge including
Final examination of the patient
Summarizing hospital stay
Instructions for continuing care to all relevant caregivers
Preparation of discharge records, prescriptions, and referral forms
Total time spent (in minutes): 41
Anticipated Discharge: Today
Subjective/Interval History
-
Date of Service: October 05, 2025
resting comfortably, no complaints
on HD
for DC at 3pm
Objective Data
-
Labs:
Laboratory Results
10/05/25
07:25
Hgb 11.1 L
Hct 32.6 L
Sodium 139
Potassium 4.4
Chloride 104
Carbon Dioxide 24
BUN 82 H
Creatinine 3.2 H
Glucose 180 H
Calcium 9.4
Vital Signs:
Vital Signs
Temp Pulse Resp BP Pulse Ox
97.7 F 60 16 113/46 100
10/05/25 11:00 10/05/25 11:00 10/05/25 11:00 10/05/25 11:00 10/05/25 11:00
I&O
10/04/25 10/05/25 10/06/25
06:59 06:59 06:59
Intake Total 580 / 580 960 / 960
Balance 580 / 580 960 / 960
Physical Exam
-
General: No Apparent Distress
HEENT: Normocephalic and Atraumatic
Respiratory: Negative Wheezes
Cardiac: Regular Rhythm and S1/S2
GI: Soft and Nontender
Musculoskeletal: No Edema
Neuro: AO x 3
Psych: Calm
Data Reviewed
-
Total Time Spent with Patient (in minutes): 42
Labs: Labs Reviewed by me
--- NOTE | 2025-10-05 12:31 | W.DCSUMMARY ---
Discharge Summary
Discharge Data
Date of Admission: 09/27/25
Date of Discharge: 10/06/25
-
Pending Results: No
Hospital Course
75 y/o F with s/p hartmans with colostomy, Hx of hodgkins lymphoma, CHB s/p PPM, persistent atrial fibrillation, CAD s/p CABG and ICMO, DM, HFrEF, ESRD on HD, sacral decubitus ulcer. R axiliary/subclavian vein stenosis, anemia, ischemic CM, anxiety
came to the hospital with leg injury 3 days prior to arrival that prevented safe entrance/exit to HD chair outpatient. Patient was found to have acute proximal L tibial Fx and a Knee immobilizer was placed. Orthopedics recommended nonoperative
management and nonweightbearing to LLE. Patients pain was controlled. She was seen by Nephrology for dialysis needs. She was discharged to SNF on 10/05/25. SHe will follow up with Orthopedics in 2 weeks.
Discharge Plan
-
Patient Disposition: Skilled Nursing/SNF
Discharge Diagnosis/Procedures: Ambulatory deficiency 2/2 acute proximal L tibial Fx, ESRD on HD
Condition: Fair
Diet: Diabetic, Carb Controlled, Restrict fluids to 48 oz and Other diet
Additional Diets: 2 gram potassium, 2 gram sodium,
Activity: As tolerated
Additional Activity: NWB LLE (knee immobilizer in place)
Other Services: PT and OT
Activity Restrictions/Additional Instructions:
Wound Care Instructions
Sacral and left ischium wound- Clean with normal saline or soap and water. Apply no-sting barrier or zinc oxide based ointment around wounds. Cover base of wounds with alginate and cover with silicone border foam. Change daily and PRN drainage.
Abrasions to right lower leg- Clean with normal saline or soap and water and apply silicone border foam. Change Q 3 days.
Bilateral Heels- No-sting barrier and adhesive foam. Change Q 3 days.
Keep heels off-loaded with pillows under calves
Use air or gel cushion in chair
Encourage frequent turning and repositioning
Referrals:
NONE,* [Family Provider, Internal Medicine]
Benny Castaneda MD [Active, Orthopedics] - in two weeks
Prescriptions:
Continued
atorvastatin [Lipitor] 40 mg Tablet
40 mg PO HS
buspirone 5 mg Tablet
5 mg PO BID
omeprazole 40 mg capsule,delayed release(DR/EC)
40 mg PO DAILY
Eliquis 5 mg tablet
5 mg PO BID
mirtazapine 15 mg Tablet
22.5 mg PO HS
isosorbide mononitrate 30 mg tablet extended release 24 hr
30 mg PO DAILY Qty: 0 0RF
acetaminophen [Tylenol Extra Strength] 500 mg Tablet
500 mg PO Q6HPRN PRN (Reason: mild pain)
insulin glargine [Basaglar KwikPen U-100 Insulin] 100 unit/mL (3 mL) Insulin Pen
24 unit SC HS
sevelamer carbonate 800 mg Tablet
800 mg PO AC
insulin aspart U-100 [Novolog FlexPen U-100 Insulin] 100 unit/mL (3 mL) insulin pen
8 unit SC AC
midodrine 5 mg Tablet
5 mg PO TID @ 0800,1200,1700
Patient Comments:
takes w/ meals
ergocalciferol (vitamin D2) 1,250 mcg (50,000 unit) Capsule
1,250 mcg PO GONZALEZ
metoprolol succinate 25 mg tablet extended release 24 hr
25 mg PO DAILY
Changed
hydrocodone-acetaminophen 5-300 mg Tablet
1 tab PO Q6H PRN (Reason: Pain) Qty: 10 0RF
Discharge Orders:
Discharge Patient (As Directed); Ordered 10/05/25
Ordered By: Mike Alves
Discharge Date and Time
Discharge Date/Time: 10/05/25 15:50
Print Language: UKRAINIAN
[2025-10-05] MEDS: NOVOLOG FLEXPEN-LOW RESISTANCE SC (12:35)
--- NOTE | 2025-10-05 13:52 | PTCARENOTE ---
Report called to DAO Martinez, at [facility]. IV removed. Tele removed. Discharge paper printed. Awaiting 1500 transport.
[2025-10-05 15:00] VITALS: BP 137/48
== END 2025-10-05 15:50 | DRG 562 ==
LOC: 4 WEST ACU 11:53
PROVIDERS: Internal Medicine; Internal Medicine Nephrology; ADMITTING PHYSICIAN Internal Medicine; ATTENDING PHYSICIAN Internal Medicine; CONSULT PHYSICIAN Orthopaedic Surgery; CONSULT PHYSICIAN Specialist; EMERGENCY PHYSICIAN Student in an Organized Health Care Education/Training Program
PROC: 5A1D70Z Performance of Urinary Filtration, Intermittent, Less than 6 Hours Per Day (ICD-10-PCS; 2025-09-27)
DX: S82.102A Unspecified fracture of upper end of left tibia, initial encounter for closed fracture (principal); L89.154 Pressure ulcer of sacral region, stage 4; L89.324 Pressure ulcer of left buttock, stage 4; N18.6 End stage renal disease; I13.2 Hypertensive heart and chronic kidney disease with heart failure and with stage 5 chronic kidney disease, or end stage renal disease; E87.1 Hypo-osmolality and hyponatremia; I48.19 Other persistent atrial fibrillation; N17.9 Acute kidney failure, unspecified; I50.22 Chronic systolic (congestive) heart failure; Z99.3 Dependence on wheelchair; Z99.2 Dependence on renal dialysis; E11.22 Type 2 diabetes mellitus with diabetic chronic kidney disease; F32.A Depression, unspecified; F41.9 Anxiety disorder, unspecified; K21.9 Gastro-esophageal reflux disease without esophagitis; Z87.891 Personal history of nicotine dependence; L89.621 Pressure ulcer of left heel, stage 1; L89.611 Pressure ulcer of right heel, stage 1; Z75.1 Person awaiting admission to adequate facility elsewhere; D63.1 Anemia in chronic kidney disease; E11.40 Type 2 diabetes mellitus with diabetic neuropathy, unspecified; E11.51 Type 2 diabetes mellitus with diabetic peripheral angiopathy without gangrene; E11.610 Type 2 diabetes mellitus with diabetic neuropathic arthropathy; I27.20 Pulmonary hypertension, unspecified; Z79.01 Long term (current) use of anticoagulants; Z79.4 Long term (current) use of insulin; Z79.899 Other long term (current) drug therapy; Z89.412 Acquired absence of left great toe; Z93.3 Colostomy status; Z95.0 Presence of cardiac pacemaker; X58.XXXA Exposure to other specified factors, initial encounter; Y93.89 Activity, other specified
CPT/HCPCS: 71045; 73590; 73610; 73620; 80048; 80051; 82962; 85014; 85018; 87070; 87147; 97530; 99284; G0257; P9047; Q5106